=== PATIENT | female | born 1965 | race Caucasian/White ===

== ENCOUNTER 2020-01-19 07:24 | Outpatient (REF) | payer MEDICAID, SELFPAY ==
--- NOTE | 2020-01-19 07:32 | CT_ITS ---
EXAMINATION: CT CHEST WITHOUT CONTRAST CLINICAL INFORMATION: Follow-up pulmonary nodules. COMPARISON: Previous chest CT scan January 2018. TECHNIQUE: Multidetector volumetric CT imaging of the chest was done. Axial MIP volume rendering provided. Sagittal and coronal reformatted images were obtained. This CT examination was performed using dose optimization techniques as appropriate, variously including the following: *Automated exposure control *Adjustment of mA and/or kV according to patient size (this includes techniques or standardized protocols for targeted exams where dose is matched to indication/reason for exam; i.e. extremities or head) *Use of iterative reconstruction technique DLP: 111 mGy-cm. FINDINGS: LUNGS: There is interval increase in size and number of clustered peribronchial nodules in the left upper lobe. Largest nodule measures 3 x 6 mm axial image 224 series 7. Again, this has a peribronchial tree-in-bud appearance suggestive of airways disease. There is interval decrease in size and number in the clustered peribronchial nodules at the right lung base compared to previous exam. Otherwise pulmonary nodules are stable. Largest pulmonary nodules measure 3 x 4 mm in the right upper lobe axial image 117 series 4 and 4 mm in the right middle lobe axial image 260 series 4. MEDIASTINUM: There are small mediastinal lymph nodes. No enlarged mediastinal lymph nodes are seen. The heart does not appear enlarged. There is no coronary artery calcification. There is no pericardial effusion. The thoracic aorta is normal in caliber. PLEURA: There is no pleural effusion. No pleural mass or thickening. AXILLA: No chest wall mass or enlarged axillary lymph nodes are seen. UPPER ABDOMEN: The gallbladder has been removed. There is a 1 cm low-attenuation lesion in the lateral segment of the left lobe of the liver that is stable. Hounsfield units without contrast measure 14 questionable for a complex cyst. OSSEOUS STRUCTURES: Unremarkable. IMPRESSION: Interval increase in size and number of the clustered peribronchial nodules in the left upper lobe and decrease in similar-appearing nodules in the right lower lobe compared to January 2018 exam. Waxing and waning appearance is favors an infectious or inflammatory process. Otherwise, pulmonary nodules are stable.
== END 2020-01-19 07:25 | disposition home or self-care (01) ==
LOC: HO.CT 07:24
PROVIDERS: PCP Internal Medicine; Visit Provider Internal Medicine
DX: R91.8 Other nonspecific abnormal finding of lung field (principal)
CPT/HCPCS: 71250

== ENCOUNTER → 2020-03-27 15:17 | Outpatient (BNVA) | payer MEDICAID, SELFPAY | PROVIDERS: Visit Provider Obstetrics & Gynecology | DX: Z76.89 Persons encountering health services in other specified circumstances (principal) ==

== ENCOUNTER → 2020-05-11 14:19 | Outpatient (BNVA) | payer MEDICAID, SELFPAY | PROVIDERS: PCP Internal Medicine; Referring Provider Internal Medicine; Visit Provider Nurse Practitioner ==

== ENCOUNTER 2020-08-26 08:25 | Outpatient (REF) | payer MEDICAID, SELFPAY ==
[2020-08-26 09:14] LABS: MANUAL DIFF FLAG NO
[2020-08-26 09:34] LABS: Basophils Percent Auto 0.6 % (0-2); Eosinophils Absolute Auto 0.1 X10*3/uL (0.0-0.4); Eosinophils Percent Auto 2.8 % (0-4); Hemoglobin 13.4 g/dl (12.0-16.0); Imm Gran Abs Auto 0.01 X10*3/uL (0.00-0.03); Imm Gran Pct Auto 0.3 % (0.0-0.4); Lymphocytes Absolute Auto 1.2 X10*3/uL (1.2-4.9); Lymphocytes Percent Auto 36.8 % (20-40); Mean Corpuscular HGB Conc 33.5 g/dl (31.0-35.0); Mean Corpuscular Hemoglobin 30.2 pg (27.0-33.0); Mean Corpuscular Volume 90.3 fL (80-98); Mean Platelet Volume 10.5 fL (9.4-12.3); Monocytes Absolute Auto 0.3 X10*3/uL (0.1-1.2); Monocytes Percent Auto 9.4 % (2-11); Neutrophils Absolute Auto 1.6 X10*3/uL (2.0-8.3); Neutrophils Percent Auto 50.1 % (45-73); Platelet Count 236 X10*3/uL (160-400); Red Blood Count 4.43 X10*6/uL (4.20-5.50); Red Cell Distribution Width 11.9 % (11.0-16.0); White Blood Count 3.2 X10*3/uL (4.8-10.8)
[2020-08-26 09:43] LABS: Alanine Aminotransferase 36 U/L (0-31); Albumin Level 4.5 g/dL (3.5-5.0); Alkaline Phosphatase 107 U/L (39-117); Anion Gap 12 (12-20); Aspartate Amino Transferase 22 U/L (5-31); Bilirubin Total 0.4 mg/dL (0.0-1.0); Blood Urea Nitrogen 11 mg/dL (9-16); Carbon Dioxide 27 mmol/L (22-29); Chloride 106 mmol/L (96-108); Estimated Glomerular Filt Rate > 60; Glucose Random 107 mg/dL (60-115); Potassium 4.3 mmol/L (3.3-5.1); Rheumatoid Factor < 15.0 IU/mL (<15.0); Sodium 141 mmol/L (135-145); Total Protein 7.3 g/dL (6.5-8.0)
[2020-08-26 10:05] LABS: Free T4 (Free Thyroxine) 1.18 ng/dL (0.71-1.85); Thyroid Stimulating Hormone 0.03 uIU/mL (0.32-4.0)
[2020-08-26 10:22] LABS: Glucose Urine UA NEG (NEG); Leukocyte Esterase Urine NEG (NEG); Nitrite Urine NEG (NEG); Urine Blood NEG (NEG); Urine Ketones NEG (NEG); Urine Protein NEG (NEG-TRACE)
[2020-08-26 10:24] LABS: Appearance Urine CLEAR; Color Urine YELLOW
[2020-08-26 10:27] LABS: Erythrocyte Sedimentation Rate 13 MM/HR (0-20)
[2020-08-27 20:42] LABS: Anti Nuclear Antibody Screen NEGATIVE (NEGATIVE)
[2020-08-28 13:57] LABS: ANAchoice Screen NEGATIVE (NEGATIVE); Anti-Centromere B Antibodies <1.0 NEG AI (<1.0 NEG); Antibody to SS-A Antigen <1.0 NEG AI (<1.0 NEG); Antibody to SS-B Antigen <1.0 NEG AI (<1.0 NEG); JO 1 Antibody <1.0 NEG AI (<1.0 NEG); SM/Ribonucleoprotein Ab <1.0 NEG AI (<1.0 NEG); Scleroderma 70 Antibody <1.0 NEG AI (<1.0 NEG); Smith Protein <1.0 NEG AI (<1.0 NEG)
[2020-08-30 22:17] LABS: Smooth Muscle Antibody <20 U (<20)
== END 2020-08-26 08:26 | disposition home or self-care (01) ==
LOC: HO.LAB 08:25
PROVIDERS: PCP Internal Medicine; Visit Provider Internal Medicine
DX: E03.9 Hypothyroidism, unspecified (principal)
CPT/HCPCS: 36415; 80053; 81003; 84439; 84443; 85025; 85652; 86038; 86039; 86225; 86235; 86255; 86431

== ENCOUNTER 2020-09-18 16:00 | Outpatient (REF) | payer MEDICAID, SELFPAY ==
--- NOTE | ~2020-09-18 | CT_ITS ---
EXAMINATION: CT CHEST WITHOUT CONTRAST CLINICAL INFORMATION: Follow-up pulmonary nodules COMPARISON: Previous chest CT scans most recent January 2020 TECHNIQUE: Multidetector volumetric CT imaging of the chest was done. Axial MIP volume rendering provided. Sagittal and coronal reformatted images were obtained. This CT examination was performed using dose optimization techniques as appropriate, variously including the following: *Automated exposure control *Adjustment of mA and/or kV according to patient size (this includes techniques or standardized protocols for targeted exams where dose is matched to indication/reason for exam; i.e. extremities or head) *Use of iterative reconstruction technique DLP: 101 mGy-cm FINDINGS: LUNGS: The previously identified bilateral pulmonary nodules are stable. Largest right pulmonary nodule measures 4 mm in the right middle lobe axial image 249 series 4. There are clustered peribronchial left upper lobe nodules, largest measuring 4 x 6 mm axial image [address] appearance suggestive of tree-in-bud appearance or airways disease. This appears similar to previous exam. No new pulmonary nodules are seen. MEDIASTINUM: The mediastinum is normal. PLEURA: There is no pleural effusion. No pleural mass or thickening. AXILLA: No lymphadenopathy. UPPER ABDOMEN: There is a small 1 cm low-attenuation lesion in the lateral segment of the left lobe of the liver probably representing a cyst that is stable. OSSEOUS STRUCTURES: Unremarkable. CT/CT chest wo con IMPRESSION: Stable pulmonary nodules from January 2020 exam.
== END 2020-09-18 16:01 | disposition home or self-care (01) ==
LOC: HO.CT 16:00
PROVIDERS: PCP Internal Medicine; Visit Provider Internal Medicine
DX: R91.1 Solitary pulmonary nodule (principal)
CPT/HCPCS: 71250

== ENCOUNTER → 2020-10-09 15:44 | Outpatient (BNVA) | payer MEDICAID, SELFPAY | PROVIDERS: PCP Internal Medicine; Visit Provider Nurse Practitioner ==

== ENCOUNTER 2021-02-22 15:28 | Outpatient (REF) | payer MEDICAID, SELFPAY ==
--- NOTE | ~2021-02-22 | MM_ITS ---
EXAMINATION: MM SCREENING DIGITAL BREAST TOMOSYNTHESIS, BILATERAL CLINICAL INFORMATION: Screening. Asymptomatic. The lifetime risk of breast cancer based on the Tyrer-Cuzick Model is 5.6%. COMPARISON: Mammography: 10/20/2018 and studies dating back to 05/05/2009. TECHNIQUE: Digital breast tomosynthesis is performed in both the craniocaudal and mediolateral oblique views along with computer-aided detection (CAD). Synthesized 2-D images are generated from the tomosynthesis. FINDINGS: The breasts are heterogeneously dense, which may obscure small masses (ACR BI-RADS breast composition Category c). About the inferior medial aspect of the left breast, there are some linear calcifications present but which are seen to be vascular in nature on tomosynthesis views. No suspicious left breast dominant mass is identified. About the anterior inferior aspect of the right breast, there is a density with some calcifications which may represent a turn in vessel with calcifications, however, circumscribed density with calcifications is not excluded. On craniocaudal view, calcifications were seen on study of 09/23/2016 but wider scattered than on today's study. Recommend spot magnification views of the right breast in craniocaudal and 90-degree mediolateral views. MM/MM tomosynthesis screening BI IMPRESSION: Right breast calcifications for further evaluation, as described. ASSESSMENT: BI-RADS 0: Incomplete - Need Additional Imaging Evaluation. RECOMMENDATION: 1. Additional views of the right breast. 2. Targeted ultrasound if warranted after review of the additional views. 3. Radiology department staff will contact the patient for additional imaging. This patient's information was entered into a reminder system with a target due date for their next mammogram.
== END 2021-02-22 15:29 | disposition home or self-care (01) ==
LOC: HO.MAMMO 15:28
PROVIDERS: Visit Provider Internal Medicine
DX: Z12.31 Encounter for screening mammogram for malignant neoplasm of breast (principal)
CPT/HCPCS: 77063; 77067

== ENCOUNTER 2021-03-01 08:15 | Outpatient (REF) | payer MEDICAID, SELFPAY ==
--- NOTE | ~2021-03-01 | MM_ITS ---
EXAMINATION: MM DIAGNOSTIC DIGITAL MAMMOGRAPHY, RIGHT CLINICAL INFORMATION: Recall from screening for calcifications and question of parenchymal density anterior 6:00 right breast. COMPARISON: Mammography: 02/22/2021, 10/20/2018, 10/13/2017 TECHNIQUE: Digital mammography is performed in the following views: Magnification CC, magnification ML, magnification MLO. FINDINGS: The breasts are heterogeneously dense, which may obscure small masses (ACR BI-RADS breast composition Category c). The additional views demonstrate no developing density or interval mass or architectural abnormality in the area of concern. There are scattered calcifications in the central breast. The calcifications for additional evaluation anterior 6:00 position show some layering on the ML view suggesting milk of calcium. They are likely chronic, without significant change on CC view since 2019. They will be reassessed again to include magnification views in 6 months.. Results are discussed with the patient at time of visit, using an can filler. MM/MM added views RT IMPRESSION: Probable benign calcifications anterior 6:00 position. No developing density or architectural abnormality. ASSESSMENT: BI-RADS 3: Probably Benign RECOMMENDATION: Diagnostic right mammography in 6 months. This patient's information was entered into a reminder system with a target due date for their next mammogram.
== END 2021-03-01 08:16 | disposition home or self-care (01) ==
LOC: HO.MAMMO 08:15
PROVIDERS: Visit Provider Internal Medicine
DX: R92.2 Inconclusive mammogram (principal)
CPT/HCPCS: 77065

== ENCOUNTER 2021-04-03 14:26 | Outpatient (REF) | payer MEDICAID, SELFPAY ==
[2021-04-06 02:22] LABS: HPV mRNA E6/E7 rflx Not Detected (Not Detected)
== END 2021-04-03 14:27 | disposition home or self-care (01) ==
LOC: HO.LAB 14:26
PROVIDERS: PCP Internal Medicine; Visit Provider Obstetrics & Gynecology
DX: Z01.419 Encounter for gynecological examination (general) (routine) without abnormal findings (principal); Z11.51 Encounter for screening for human papillomavirus (HPV)
CPT/HCPCS: 87624; 88142

== ENCOUNTER 2021-06-26 12:10 | Outpatient (REF) | payer MEDICAID, SELFPAY ==
--- NOTE | ~2021-06-26 | XR_ITS ---
EXAMINATION: XR SHOULDER, RIGHT CLINICAL INFORMATION: Pain COMPARISON: None TECHNIQUE: AP external rotation, Grashey, scapular Y, and axillary views of the right shoulder. FINDINGS: Bone alignment is normal. No fracture or dislocation is seen. The glenohumeral joint is normal. There is mild arthritis at the acromioclavicular joint. Soft tissues are unremarkable. XR/XR shoulder RT min 2V IMPRESSION: Mild arthritis at the acromioclavicular joint.
--- NOTE | ~2021-06-26 | XR_ITS ---
EXAMINATION: XR HAND, BILATERAL XR WRIST, BILATERAL CLINICAL INFORMATION: Pain. COMPARISON: Previous exam February 2018. TECHNIQUE: 4 views of each hand and wrist. FINDINGS: RIGHT: Bone alignment is normal. No fracture or dislocation is seen. There is mild arthritis at the 1st RESIDENTIAL joint with joint space narrowing and osteophyte formation. There is mild arthritis at the DIP joint of the 3rd and 5th fingers with small osteophytes. Joint spaces are otherwise normal. Soft tissues are normal. LEFT: Bone alignment is normal. No fracture or dislocation is seen. There is arthritis at the DIP joint of the 3rd finger with joint space narrowing, osteophyte formation and cyst formation. This is new from February 2018 exam. There is mild arthritis at the DIP joints of the 2nd and 5th fingers with osteophytes. There is mild arthritis at the 1st RESIDENTIAL joint with small osteophyte. Joint spaces are otherwise normal. Soft tissues are normal. XR/XR hand wrist LT IMPRESSION: Right: Osteoarthritis at the 1st RESIDENTIAL joint and mild arthritis at the DIP joints of the 3rd and 5th fingers. Left: Arthritis at the DIP joint of the 3rd finger with joint space narrowing, osteophyte formation and prominent cystic change questionable for evidence of erosive osteoarthritis. Arthritis at the DIP joints of the 2nd and 5th fingers with osteophyte formation and mild arthritis at the 1st RESIDENTIAL joint.
--- NOTE | ~2021-06-26 | XR_ITS ---
EXAMINATION: XR HAND, BILATERAL XR WRIST, BILATERAL CLINICAL INFORMATION: Pain. COMPARISON: Previous exam February 2018. TECHNIQUE: 4 views of each hand and wrist. FINDINGS: RIGHT: Bone alignment is normal. No fracture or dislocation is seen. There is mild arthritis at the 1st ALF joint with joint space narrowing and osteophyte formation. There is mild arthritis at the DIP joint of the 3rd and 5th fingers with small osteophytes. Joint spaces are otherwise normal. Soft tissues are normal. LEFT: Bone alignment is normal. No fracture or dislocation is seen. There is arthritis at the DIP joint of the 3rd finger with joint space narrowing, osteophyte formation and cyst formation. This is new from February 2018 exam. There is mild arthritis at the DIP joints of the 2nd and 5th fingers with osteophytes. There is mild arthritis at the 1st ALF joint with small osteophyte. Joint spaces are otherwise normal. Soft tissues are normal. XR/XR hand wrist RT IMPRESSION: Right: Osteoarthritis at the 1st ALF joint and mild arthritis at the DIP joints of the 3rd and 5th fingers. Left: Arthritis at the DIP joint of the 3rd finger with joint space narrowing, osteophyte formation and prominent cystic change questionable for evidence of erosive osteoarthritis. Arthritis at the DIP joints of the 2nd and 5th fingers with osteophyte formation and mild arthritis at the 1st ALF joint.
== END 2021-06-26 12:11 | disposition home or self-care (01) ==
LOC: HO.XRAY 12:10
PROVIDERS: PCP Internal Medicine; Visit Provider Nurse Practitioner Family
DX: M25.511 Pain in right shoulder (principal); M79.7 Fibromyalgia; M79.641 Pain in right hand; M79.642 Pain in left hand
CPT/HCPCS: 73030; 73110; 73130; 99212

== ENCOUNTER → 2021-07-02 12:24 | Outpatient (BNVA) | payer MEDICAID, SELFPAY | PROVIDERS: PCP Internal Medicine; Visit Provider Physician Assistant | DX: S46.009A Unspecified injury of muscle(s) and tendon(s) of the rotator cuff of unspecified shoulder, initial encounter (principal); X58.XXXA Exposure to other specified factors, initial encounter; Y93.9 Activity, unspecified; Y92.9 Unspecified place or not applicable; Y99.8 Other external cause status; M19.049 Primary osteoarthritis, unspecified hand; M79.7 Fibromyalgia; R20.0 Anesthesia of skin; R20.2 Paresthesia of skin | CPT/HCPCS: 20610; 99202; J1040 ==

== ENCOUNTER 2021-07-17 15:33 | Outpatient (REF) | payer MEDICAID, SELFPAY ==
--- NOTE | ~2021-07-17 | MR_ITS ---
EXAMINATION: MR SHOULDER WITHOUT CONTRAST, RIGHT CLINICAL INFORMATION: Left shoulder pain COMPARISON: None TECHNIQUE: MRI of the shoulder without contrast was performed on a high-field scanner. FINDINGS: ROTATOR CUFF: Increased signal from mild supraspinatus tendinosis plus/minus small intrasubstance tears. No full-thickness tear is seen. Infraspinatus, teres minor, subscapularis is intact. No muscle atrophy or fatty infiltration. BICEPS: Intact CORACOACROMIAL ARCH: The undersurface of the acromion is flat with no subacromial spur. Mild to moderate acromioclavicular arthritis. LABRUM/CAPSULE: No focal labral tear is seen. Inferior capsule is intact. GLENOHUMERAL JOINT/MARROW: No suspicious marrow signal changes. No fracture. No significant effusion. MR/MR shoulder RT wo con IMPRESSION: 1. Mild supraspinatus tendinosis plus/minus small intrasubstance tears. No full-thickness tear or retraction is seen. 2. Mild to moderate acromioclavicular arthritis.
== END 2021-07-17 15:34 | disposition home or self-care (01) ==
LOC: HO.MRI 15:33
PROVIDERS: Visit Provider Physician Assistant
DX: S43.001A Unspecified subluxation of right shoulder joint, initial encounter (principal)
CPT/HCPCS: 73221

== ENCOUNTER 2021-08-31 14:32 | Outpatient (REF) | payer MEDICAID, SELFPAY ==
--- NOTE | ~2021-08-31 | MM_ITS ---
EXAMINATION: MM DIAGNOSTIC DIGITAL BREAST TOMOSYNTHESIS, RIGHT CLINICAL INFORMATION: Short interval six-month follow-up probable benign calcifications anterior 6:00 right breast likely milk of calcium. TC score 7%. COMPARISON: Mammography: 03/01/2021, 02/22/2021 (BI-RADS 0), 10/20/2018 TECHNIQUE: Digital breast tomosynthesis is performed in both the craniocaudal and mediolateral oblique views along with computer-aided detection (CAD). Synthesized 2D images are generated from the tomosynthesis. Additional magnification CC and magnification ML views are obtained. FINDINGS: The breasts are heterogeneously dense, which may obscure small masses (ACR BI-RADS breast composition Category c). Parenchymal pattern is similar to prior studies and there is no interval mass or architectural abnormality. There are some scattered punctate round calcifications in the breast. The axilla and skin contours are unremarkable. Calcifications for follow-up anterior 6:00 position are stable from prior diagnostic exam. Most are layering, consistent with milk of calcium. There are no increasing calcifications or interval suspicious change. They will be reassessed again at time of annual bilateral mammography, due in 6 months. Results are provided to the patient at time of visit by the technologist. MM/MM tomosynthesis diagnostic RT IMPRESSION: -No suspicious change in probable benign calcifications for follow-up anterior 6:00 position. ASSESSMENT: BI-RADS 3: Probably Benign RECOMMENDATION: Diagnostic mammography at time of annual bilateral exam, due in 6 months. This patient's information was entered into a reminder system with a target due date for their next mammogram.
== END 2021-08-31 14:33 | disposition home or self-care (01) ==
LOC: HO.MAMMO 14:32
PROVIDERS: PCP Internal Medicine; Visit Provider Internal Medicine
DX: R92.1 Mammographic calcification found on diagnostic imaging of breast (principal)
CPT/HCPCS: 77061; 77065

== ENCOUNTER 2021-09-13 07:49 | Outpatient (REF) | payer MEDICAID, SELFPAY ==
--- NOTE | ~2021-09-13 | US_ITS ---
EXAMINATION: US ABDOMEN COMPLETE CLINICAL INFORMATION: Right upper quadrant pain. COMPARISON: Multiple prior CT scans of the chest most recently 09/18/2020. TECHNIQUE: Real-time imaging of the abdominal viscera. FINDINGS: PANCREAS: The pancreas appears unremarkable, without masses or ductal dilatation, with the exception of the tail which is obscured by bowel gas. ABDOMINAL AORTA: The proximal, mid, and distal segments are normal in caliber. INFERIOR VENA CAVA: Visualized portions are normal. LIVER: The liver is enlarged measuring 18 cm in greatest length. The liver contour is normal. There is diffuse increased liver parenchymal echogenicity, consistent with hepatic steatosis. Similar findings could be seen on the prior 09/18/2020 CT scan. No focal hepatic lesion. There is no intrahepatic biliary duct dilatation seen. GALLBLADDER: Surgically absent. COMMON BILE DUCT: Normal in caliber measuring 0.7 cm in diameter. RIGHT KIDNEY: Normal. No hydronephrosis. No renal calculi or focal parenchymal lesions. The kidney measures 9.4 cm in maximum dimension. LEFT KIDNEY: Normal. No hydronephrosis. No renal calculi or focal parenchymal lesions. The kidney measures 8.8 cm in maximum dimension. SPLEEN: Normal. The spleen measures 8.8 cm in maximum dimension. FREE FLUID: None. US/US abdomen complete IMPRESSION: Enlarged fatty liver as present previously.
== END 2021-09-13 07:50 | disposition home or self-care (01) ==
LOC: HO.US 07:49
PROVIDERS: Visit Provider Internal Medicine
DX: R10.11 Right upper quadrant pain (principal)
CPT/HCPCS: 76700

== ENCOUNTER → 2021-09-21 12:46 | Outpatient (BNVA) | payer MEDICAID, SELFPAY | PROVIDERS: PCP Internal Medicine; Visit Provider Nurse Practitioner | DX: K58.0 Irritable bowel syndrome with diarrhea (principal); K21.9 Gastro-esophageal reflux disease without esophagitis | CPT/HCPCS: 99212 ==

== ENCOUNTER 2021-09-26 10:17 | Outpatient (REF) | payer MEDICAID, SELFPAY ==
--- NOTE | ~2021-09-26 | CT_ITS ---
EXAMINATION: CT CHEST WITHOUT CONTRAST CLINICAL INFORMATION: Pulmonary nodule COMPARISON: Previous chest CT scans most recent September 2020 TECHNIQUE: Multidetector volumetric CT imaging of the chest was done. Axial MIP volume rendering provided. Sagittal and coronal reformatted images were obtained. This CT examination was performed using dose optimization techniques as appropriate, variously including the following: *Automated exposure control *Adjustment of mA and/or kV according to patient size (this includes techniques or standardized protocols for targeted exams where dose is matched to indication/reason for exam; i.e. extremities or head) *Use of iterative reconstruction technique DLP: 117 mGy-cm FINDINGS: LUNGS: There are new clustered noncalcified nodules in the superior segment of the right lower lobe. Largest measures 5 mm axial image 191 series 7. There is focal bronchiectasis, bronchial wall thickening and bronchial soft tissue opacification in the right upper lobe for example axial image 2:15 series 7 and in the left upper lobe axial image 227 series 7. This appears stable. Other pulmonary nodules are stable. Largest pulmonary nodule measures 4 mm in the right middle lobe axial image 267 series 7. There is heterogeneous attenuation of the lungs suggestive of areas of air-trapping and hypoventilatory changes MEDIASTINUM: The mediastinum is normal. PLEURA: There is no pleural effusion. No pleural mass or thickening. AXILLA: No lymphadenopathy. UPPER ABDOMEN: There is a 1 cm low-attenuation lesion in the lateral segment of the left lobe of the liver that is stable. OSSEOUS STRUCTURES: Unremarkable. CT/CT chest wo con IMPRESSION: New clustered peribronchial nodules in the superior segment of the right lower lobe suggestive of airways disease. Other clustered peribronchial nodules and bronchial soft tissue opacification or mucus plugging predominantly in the bilateral upper lobes appears unchanged. There are several discrete calcified and noncalcified pulmonary nodules that appear stable, largest measuring 4 mm in the right middle lobe. Fleischner guidelines were followed.
== END 2021-09-26 10:18 | disposition home or self-care (01) ==
LOC: HO.CT 10:17
PROVIDERS: Visit Provider Internal Medicine
DX: R91.1 Solitary pulmonary nodule (principal)
CPT/HCPCS: 71250

== ENCOUNTER 2021-10-18 07:41 | Outpatient (REF) | payer MEDICAID, SELFPAY ==
--- NOTE | 2021-10-18 07:45 | EMG_ITS ---
Bilateral median and ulnar motor and sensory studies were performed. Bilateral radial sensory studies were performed and paraspinal muscles were tested with a needle. IMPRESSION: Mild right ulnar neuropathy across cubital tunnel. Otherwise, this study did not reveal any significant abnormality. MD BETTE Henderson/SHELLIE / [id number]
== END 2021-10-18 07:42 | disposition home or self-care (01) ==
LOC: HO.NEURO 07:41
PROVIDERS: PCP Internal Medicine; Visit Provider Physician Assistant
DX: R20.0 Anesthesia of skin (principal); R20.2 Paresthesia of skin
CPT/HCPCS: 95886; 95911

== ENCOUNTER → 2021-11-02 13:23 | Outpatient (BNVA) | payer MEDICAID, SELFPAY | PROVIDERS: PCP Internal Medicine; Visit Provider Nurse Practitioner | DX: K21.9 Gastro-esophageal reflux disease without esophagitis (principal); K58.0 Irritable bowel syndrome with diarrhea; Z79.899 Other long term (current) drug therapy | CPT/HCPCS: 99212 ==

== ENCOUNTER → 2021-12-05 12:02 | Outpatient (BNVA) | payer MEDICAID, SELFPAY | PROVIDERS: PCP Internal Medicine; Visit Provider Orthopaedic Surgery | DX: G56.21 Lesion of ulnar nerve, right upper limb (principal) | CPT/HCPCS: 99202 ==

== ENCOUNTER → 2021-12-13 12:36 | Outpatient (BNVA) | payer MEDICAID, SELFPAY | PROVIDERS: PCP Internal Medicine; Visit Provider Internal Medicine Pulmonary Disease | DX: Z01.811 Encounter for preprocedural respiratory examination (principal); J47.9 Bronchiectasis, uncomplicated; R91.8 Other nonspecific abnormal finding of lung field | CPT/HCPCS: 99202 ==

== ENCOUNTER → 2021-12-19 14:29 | Outpatient (BNVA) | payer MEDICAID, SELFPAY | PROVIDERS: PCP Internal Medicine; Visit Provider Nurse Practitioner | DX: K58.0 Irritable bowel syndrome with diarrhea (principal); K21.9 Gastro-esophageal reflux disease without esophagitis | CPT/HCPCS: 99212 ==

== ENCOUNTER 2021-12-27 07:15 | Day surgery (SDC) | payer MEDICAID, SELFPAY ==
[2021-12-21 15:52] VITALS: BMI 27.6
--- NOTE | 2021-12-26 09:19 | HO.ANESPROP2 ---
Documented by User: Chen Angulo NP 12/26/21 09:21 HPI - Anesthesia Eval Consult details Narrative: 56yo F for Right Cubital Tunnel Release vs. Transposition Pulmo cleared: Incidental finding of mild bronchiectasis with no acute exacerbation.? PMFSH Active Problems Active Problems: All Active Problems (Updated 12/13/21 @ 14:20 by Giacomo Hopson MD) Preop pulmonary/respiratory exam (Acute) Pulmonary nodules (Acute) Bronchiectasis (Acute) Cubital tunnel syndrome on right (Acute) CMC arthritis (Acute) Rotator cuff injury (Acute) Fibromyalgia (Acute) Well woman exam (Acute) Irritable bowel syndrome with diarrhea (Acute) GERD (gastroesophageal reflux disease) (Acute) Past Medical History Medical History Anxiety Depression Fibromyalgia GERD (gastroesophageal reflux disease) HPV in female Surgical History Surgical History H/O LEEP History of bilateral tubal ligation History of cholecystectomy History of colonoscopy Social History Social History Household Members: None Alcohol intake: current Alcohol intake frequency: holidays/special occasions only Patient Tobacco Use Status: Never used Tobacco Advance Directives Date on File: 01/19/20 Sexual orientation: Straight/Heterosexual Gender identity: Female Meds Allergies Allergy/AdvReac Type Severity Reaction Status Date / Time cholestyramine Allergy Intermediate itching Verified 12/19/21 14:49 Home Medications Medication Instructions Recorded Confirmed Last Taken Type amitriptyline 75 mg tablet 75 mg PO BEDTIME 06/26/21 Unknown History clonazepam 0.5 mg tablet 0.5 mg PO BEDTIME 06/26/21 Unknown History fluticasone propionate 50 1 spray intranasal DAILY 06/26/21 Unknown History mcg/actuation nasal spray,suspension (Allergy Relief (fluticasone)) loratadine 10 mg tablet (Allergy 10 mg PO DAILY 06/26/21 Unknown History Relief (loratadine)) meclizine 25 mg tablet 25 mg PO DAILY PRN 06/26/21 Unknown History naproxen 500 mg tablet 500 mg PO BID PRN 06/26/21 Unknown History propranolol 20 mg tablet 20 mg PO BID 06/26/21 12/27/21 History levothyroxine 75 mcg tablet 75 mcg PO DAILY 09/21/21 12/27/21 History oxybutynin chloride 5 mg 15 mg PO DAILY 09/21/21 Unknown History tablet,extended release 24 hr sumatriptan succinate 50 mg tablet 50 mg PO 09/21/21 Unknown History pregabalin 50 mg capsule 50 mg PO BID 12/19/21 Unknown History Exam Exam Date and Time: December 26, [id number] Height,Weight and Vital Signs: Height 5 ft 1 in Weight 66.224 kg Narrative Narrative: CT chest wo con 09/2021 IMPRESSION: New clustered peribronchial nodules in the superior segment of the right lower lobe suggestive of airways disease. Other clustered peribronchial nodules and bronchial soft tissue opacification or mucus plugging predominantly in the bilateral upper lobes appears unchanged. There are several discrete calcified and noncalcified pulmonary nodules that appear stable, largest measuring 4 mm in the right middle lobe.? Assessment and Plan Assessment Anesthesia Assessment: Chart Reviewed Documented by User: Judd Coronado MD 12/27/21 16:50 PMFSH Past Medical History Medical History Anxiety Depression Fibromyalgia GERD (gastroesophageal reflux disease) HPV in female Functional capacity: independent ambulation Family History Family history of problems with anesthesia: No Surgical History Surgical History H/O LEEP History of bilateral tubal ligation History of cholecystectomy History of colonoscopy History of Problems with Anesthesia: No Social History Social History Household Members: None Alcohol intake: current Alcohol intake frequency: holidays/special occasions only Patient Tobacco Use Status: Never used Tobacco Advance Directives Date on File: 01/19/20 Sexual orientation: Straight/Heterosexual Gender identity: Female Meds Allergies Allergy/AdvReac Type Severity Reaction Status Date / Time cholestyramine Allergy Intermediate itching Verified 12/19/21 14:49 Home Medications Medication Instructions Recorded Confirmed Last Taken Type amitriptyline 75 mg tablet 75 mg PO BEDTIME 06/26/21 Unknown History clonazepam 0.5 mg tablet 0.5 mg PO BEDTIME 06/26/21 Unknown History fluticasone propionate 50 1 spray intranasal DAILY 06/26/21 Unknown History mcg/actuation nasal spray,suspension (Allergy Relief (fluticasone)) loratadine 10 mg tablet (Allergy 10 mg PO DAILY 06/26/21 Unknown History Relief (loratadine)) meclizine 25 mg tablet 25 mg PO DAILY PRN 06/26/21 Unknown History naproxen 500 mg tablet 500 mg PO BID PRN 06/26/21 Unknown History propranolol 20 mg tablet 20 mg PO BID 06/26/21 12/27/21 History levothyroxine 75 mcg tablet 75 mcg PO DAILY 09/21/21 12/27/21 History oxybutynin chloride 5 mg 15 mg PO DAILY 09/21/21 Unknown History tablet,extended release 24 hr sumatriptan succinate 50 mg tablet 50 mg PO 09/21/21 Unknown History pregabalin 50 mg capsule 50 mg PO BID 12/19/21 Unknown History Exam Airway Mallampati Class: III TM Dist: >3cm Neck ROM: Full Loose/Missing/Broken Teeth: Yes Heart: S1,S2 Lungs: b/l breath sounds Assessment and Plan Assessment Anesthesia Assessment: Anesthesia Plan Discussed Final Anesthetic Review Family History of Problems with Anesthesia: No History of Problems with Anesthesia: No NPO: Yes ASA Class: II Final Preanesthetic Review: Meds/Allgs Chart Reviewed, Consent Obtained/Reviewed and Anes Risks/Benef Reviewed Patient Risk: Intermediate Procedure Risk: Intermediate Anesthetic Plan Anesthetic Plan: GA Disposition: Standard PACU
[2021-12-27] VITALS (8 sets, daily range): BP systolic 113–148; BP diastolic 59–74; PULSE 59–87; RESP 14–16; TEMP 36.2–36.3; O2SAT 97–100; BMI 27.6
[2021-12-27] MEDS: Lactated Ringers 1,000 ML 100 ML IVCONT (08:26)
--- NOTE | 2021-12-27 10:24 | MHC.SHP ---
Pre-Procedural Eval Section A Date of Service: 12/27/21 The patient is an INPATIENT: No Changes since office visit: No Cold of Flu in the past 2 weeks, No New Medical Problems, No Changes in Medication and No Patient answered all questions The History & Physical has been completed within 30 days and I have reviewed it.: Yes Section B Chief Complaint: ulnar nerve lesion Allergies: Allergies Allergy/AdvReac Type Severity Reaction Status Date / Time cholestyramine Allergy Intermediate itching Verified 12/19/21 14:49 Plan I have reviewed the history and physical and performed a pertinent physical examination on my patient. No changes have occurred unless specified.
--- NOTE | 2021-12-27 10:25 | W.PM.OPN ---
Operative Note Operative Note Date of Service: 12/27/21 Narrative: Operative Note Narrative: Preop diagnosis: 1. Right Cubital tunnel syndrome Postop diagnosis: Same Procedure: 1. Right Cubital Tunnel Release Surgeon: Magdalena Robertson MD Anesthesia: General Anesthesia Findings: Thickening and fibrosis about the ulnar nerve at the cubital tunnel Implants: none Tourniquet time: 12 minutes EBL: 5.0 ml Specimen: none Drains: None Complications: None Disposition: Brought to the recovery room in stable condition Plan: Follow-up in 10-14 days for wound check, and suture removal Indications: The patient is 56 years old with right cubital tunnel syndrome . The risks and benefits of operative treatment, including but not limited to risk of damage to blood vessels, nerves, tendons, infection, recurrence, persistent pain or numbness, incomplete resolution of preoperative symptoms, or need for further surgery were discussed with the patient and they wished to proceed with surgery. Procedure: Once consent was obtained patient was brought back to the operating suite and placed in the operating table in a supine position. Perioperative antibiotics and anesthesia was administered by the anesthesia team. The limb was prepped and draped in a standard surgical fashion, and a sterile tourniquet applied to the proximal aspect of the right upper extremity. The limb was elevated exsanguinated with Esmarch bandage and the tourniquet inflated to 250 mm of mercury for a total tourniquet time of 12 minutes. A 6 cm gently curved but longitudinally oriented incision was made centered over the cubital tunnel of the right upper extremity. Incision was made through the skin to the subcutaneous tissues using a # 15 Blade. I then dissected down to the level of the medial epicondyle and the cubital tunnel using tenotomy scissors. Care was taken to protect the lateral antebrachial cutaneous nerve. The ulnar nerve was identified just posterior to the medial intermuscular septum. The ulnar nerve was released in a proximal to distal direction using tenotomy in iris scissors while directly visualizing and protecting the ulnar nerve. Thickening and fibrosis was appreciated about the ulnar nerve as it passed through the cubital tunnel. The ulnar nerve was assessed as I passed the elbow through full flexion and extension and was found to remain stable within its groove. At this point the tourniquet was deflated and hemostasis obtained with a brief period of local pressure and bipolar electrocautery. The wound was copiously irrigated with normal saline. The subcutaneous layer was closed with 4-0 Vicryl suture, and the skin edges were reapproximated with 5-0 nylon suture. The wound was infiltrated with some 0.25% plain Marcaine for postop pain control and sterile dressings and a posterior splint was applied. The patient appears to have tolerated the procedure well and with no complications. All digits were well vascularized conclusion of the case.
== END 2021-12-27 13:27 | disposition home or self-care (01) ==
PROVIDERS: PCP Internal Medicine; Visit Provider Orthopaedic Surgery
PROC: (CPT 64718; principal; 2021-12-27 09:10)
DX: G56.21 Lesion of ulnar nerve, right upper limb (principal); R20.0 Anesthesia of skin; R20.2 Paresthesia of skin; F41.8 Other specified anxiety disorders; M79.7 Fibromyalgia; Z79.899 Other long term (current) drug therapy
CPT/HCPCS: 64718; J0690; J1100; J2250; J2370; J2405; J2795; J3010

== ENCOUNTER 2022-01-15 12:26 | Outpatient (REF) | payer MEDICAID, SELFPAY ==
--- NOTE | 2022-01-15 16:35 | PFT_ITS ---
Forced vital capacity 71%, FEV1 78%, FEV1/FVC ratio is 86. FEF25/75 101% and MVV 68%. Post bronchodilator therapy, there is no change. Total lung capacity 75%. Residual volume 74%. Diffusion capacity 80%. CONCLUSION: [id number] degree of restrictive pulmonary disorder. No obstructive airway disorder. No response to bronchodilator therapy. MD DEONNA Go/MODL / [id number]
== END 2022-01-15 12:27 | disposition home or self-care (01) ==
LOC: HO.RESP 12:26
PROVIDERS: PCP Internal Medicine; Visit Provider Internal Medicine Pulmonary Disease
DX: J47.9 Bronchiectasis, uncomplicated (principal)
CPT/HCPCS: 94060; 94727; 94729

== ENCOUNTER → 2022-01-16 13:03 | Outpatient (BNVA) | payer MEDICAID, SELFPAY | PROVIDERS: PCP Internal Medicine; Visit Provider Nurse Practitioner | DX: K58.0 Irritable bowel syndrome with diarrhea (principal); K21.9 Gastro-esophageal reflux disease without esophagitis | CPT/HCPCS: 99212 ==

== ENCOUNTER 2022-02-07 09:27 | Emergency (ER) | payer MEDICAID, SELFPAY ==
--- NOTE | ~2022-02-07 | CT_ITS ---
EXAMINATION: CT ANGIOGRAM OF THE CHEST WITH AND WITHOUT CONTRAST (CT PULMONARY ANGIOGRAM FOR PE) CLINICAL INFORMATION: Reason for Exam elevated d dimer, pleuritic CP COMPARISON: September 26, 2021 and September 18, 2020 TECHNIQUE: Prior to contrast administration, noncontrast localization images were obtained. Subsequently, multidetector volumetric imaging was performed from the thoracic inlet to below the diaphragms following the administration of 65 mL Omnipaque 350 intravenous contrast. No contrast reaction reported Sagittal, coronal, and MIP oblique sagittal reformatted images were obtained on the CT workstation, uploaded to PACS, and reviewed. This CT examination was performed using dose optimization techniques as appropriate, variously including the following: *Automated exposure control *Adjustment of mA and/or kV according to patient size (this includes techniques or standardized protocols for targeted exams where dose is matched to indication/reason for exam; i.e. extremities or head) *Use of iterative reconstruction technique Total exam dose-length product 257 mGy-cm FINDINGS: QUALITY OF STUDY/CONTRAST BOLUS: Satisfactory. PULMONARY ARTERIES: No central or segmental pulmonary emboli. THORACIC AORTA: No aneurysm or dissection. LUNG: Central airways are patent. No confluent parenchymal disease identified. There are some sub-4 mm densities present bilaterally. Calcified granulomas are present. No significant bronchial wall thickening or bronchiectasis is seen. Scattered regions of groundglass opacity present in a somewhat mosaic pattern which can be seen with small small airways disease with some obstruction/air trapping, infection, interstitial edema, or vascular disease of other etiology. There is bronchial wall thickening present. No definite bronchiectasis is appreciated. There is a 5 mm noncalcified subpleural nodule seen within the right upper lobe on image 181 of 391. This is stable There are a few adjacent approximately 3 mm noncalcified densities within the right upper lobe on image 145 of 391. Within the left upper lobe adjacent to the major fissure there is a 4 mm noncalcified nodule on image 141 of 391. This is stable. Within the left upper lobe there is a region of density measuring approximately 1.4 x 0.7 cm in size on image [address] series #6. This is larger than on study of September 26, 2021 where it measured approximately 1.0 x 0.4 cm in size but is similar to study of September 18, 2020 and January 19, 2020. This could be related to mucous plugging or other probably benign process. PLEURA: No pleural effusion or pneumothorax. MEDIASTINUM: Heart mildly enlarged. No pericardial effusion. No hilar or mediastinal lymphadenopathy. No evidence of septal bowing or right heart strain. No coronary artery calcification appreciated. CHEST WALL/AXILLA: No axillary or internal mammary lymphadenopathy. OSSEOUS STRUCTURES: No acute or suspicious osseous abnormality. UPPER ABDOMEN: Unremarkable. No reflux of contrast into the hepatic veins to suggest elevated right heart pressures. CT/CT angio chest PE protocol IMPRESSION: 1. No evidence of acute pulmonary artery embolus. 2. No evidence of thoracic aortic aneurysm or dissection. 3. Old granulomatous disease. 4. Stable lung nodules as described 5. Groundglass mosaic appearance of interstitial lung disease which can be seen with small airways disease and air trapping, vascular disease, possible interstitial pulmonary edema, or possible infectious etiology. VTE: negative
--- NOTE | ~2022-02-07 | XR_ITS ---
EXAMINATION: XR CHEST CLINICAL INFORMATION: Chest pain. COMPARISON: 06/27/2017 chest and rib radiographs. TECHNIQUE: 2 views of the chest were obtained. FINDINGS: No significant abnormality is noted involving the heart, lungs, mediastinum, bony thorax or soft tissues. XR/XR chest 2V IMPRESSION: No acute cardiopulmonary process.
[2022-02-07 09:49] VITALS: BP 171/73; PULSE 71; RESP 16; TEMP 36.6; O2SAT 99; BMI 27.6
[2022-02-07 10:07] VITALS: BP 182/78; PULSE 72; RESP 14; TEMP 37.1; O2SAT 96
--- NOTE | 2022-02-07 10:13 | ECG_ITS ---
Test Reason : Chest Pain Blood Pressure : / mmHG Vent. Rate : 062 BPM Atrial Rate : 062 BPM P-R Int : 152 ms QRS Dur : 084 ms QT Int : 410 ms P-R-T Axes : 057 036 075 degrees QTc Int : 416 ms Normal sinus rhythm Normal ECG T wave inversion no longer evident in Anterior leads Referred By: Araceli Lomax Electronically Signed By:GOVIND STORY MD
--- NOTE | 2022-02-07 10:27 | ED.CHESTPAIN ---
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 Patient describes the pain as central pain which was initially sharp and stabbing but now feels heavy with some associated shortness of breath. Pain began at rest. It is not worsened with exertion. There is no associated vomiting or diaphoresis with the pain. Patient initially complained of some radiation of pain to the right arm but tells me that she has chronic right shoulder pain which feels unchanged from her baseline. Patient did have carpal tunnel surgery on her right upper extremity 1 month ago. No recent travel or sick contacts. No personal/family history of DVT or PE. No leg swelling or leg pain. Chest pain now described as heavy. Pain is not worsened with palpation. Pain is worsened with deep breathing Related Data Home Medications Medication Instructions Recorded Confirmed amitriptyline 75 mg tablet 75 mg PO BEDTIME 06/26/21 clonazepam 0.5 mg tablet 0.5 mg PO BEDTIME 06/26/21 fluticasone propionate 50 1 spray intranasal DAILY 06/26/21 mcg/actuation nasal spray,suspension (Allergy Relief (fluticasone)) loratadine 10 mg tablet (Allergy 10 mg PO DAILY 06/26/21 Relief (loratadine)) meclizine 25 mg tablet 25 mg PO DAILY PRN 06/26/21 naproxen 500 mg tablet 500 mg PO BID PRN 06/26/21 propranolol 20 mg tablet 20 mg PO BID 06/26/21 levothyroxine 75 mcg tablet 75 mcg PO DAILY 09/21/21 sumatriptan succinate 50 mg tablet 50 mg PO 09/21/21 pregabalin 50 mg capsule 50 mg PO BID 12/19/21 oxybutynin chloride 10 mg 10 mg PO DAILY 01/16/22 tablet,extended release 24 hr sucralfate 1 gram tablet 2 g PO QPM 01/16/22 Previous Rx's Medication Instructions Recorded calcium carbonate 600 mg-vitamin 1 cap PO DAILY #30 caps 03/27/20 D3 12.5 mcg (500 unit) capsule (Calcium 600 with Vitamin D3) dexlansoprazole 60 mg 60 mg PO DAILY 30 days #30 caps 09/21/21 capsule,biphase delayed release (Dexilant) dicyclomine 20 mg tablet 20 mg PO QID 30 days #120 tabs 09/21/21 simethicone 180 mg capsule (Gas 180 mg PO QID #120 caps 09/21/21 Relief (simethicone)) alosetron 0.5 mg tablet (Lotronex) 0.5 mg PO DAILY #60 tabs 12/19/21 hydrocodone 5 mg-acetaminophen 325 1 - 2 tab PO Q6H PRN pain #20 tabs 12/27/21 mg tablet eluxadoline 75 mg tablet (Viberzi) 75 mg PO BID #60 tabs 01/16/22 loperamide 2 mg capsule 2 mg PO Q6H PRN for diarrhea #30 02/01/22 caps Allergies Allergy/AdvReac Type Severity Reaction Status Date / Time cholestyramine Allergy Intermediate itching Verified 01/16/22 13:54 Review of Systems Review of Systems: Yes all other systems are reviewed and are negative Constitutional: Constitutional: Reports no additional constitutional complaints, Denies body ache(s), Denies chills, Denies fever(s), Denies headache(s) and Denies weakness Eyes: Eyes: Reports no additional eye complaints and Denies change in vision ENT: Reports system reviewed and no additional complaints, except as documented, Denies dizziness, Denies headache(s), Denies nasal congestion, Denies nasal discharge and Denies neck pain Cardiovascular: Cardiovascular: Reports no additional cardiovascular complaints, Reports chest pain, Denies leg edema and Reports dyspnea Respiratory: Respiratory: Reports no additional respiratory complaints, Denies cough and Reports dyspnea Gastrointestinal: Gastrointestinal: Reports no additional gastrointestinal complaints, Denies abdominal pain, Denies diarrhea, Denies nausea and Denies vomiting Genitourinary: Genitourinary: Reports no additional female genitourinary complaints and Denies urinary incontinence Musculoskeletal: Musculoskeletal: Reports no additional musculoskeletal complaints, Denies back pain, Denies arthralgias, Denies joint swelling, Denies neck pain, Denies numbness and Denies tingling Integumentary/Breasts: Skin/Breast: Reports system reviewed and no additional complaints, except as docu and Denies rash Neurologic: Reports system reviewed and no additional complaints, except as documented, Denies Abnormal speech present, Denies dizziness, Denies headache(s), Denies numbness, Denies tingling and Denies weakness PMFSH Past Medical History Attestation statement: The following information was validated with the patient. Source: old records reviewed and nursing notes reviewed Medical History Anxiety Depression Fibromyalgia GERD (gastroesophageal reflux disease) HPV in female Surgical History H/O LEEP History of bilateral tubal ligation History of cholecystectomy History of colonoscopy Social History Social History Household Members: None Alcohol intake: current Alcohol intake frequency: does not drink Patient Tobacco Use Status: Never used Tobacco Use of substances other than those prescribed or required for medical reasons: No Advance Directives: No Advance Directives Information Provided: Yes Advance Directives Date on File: 01/19/20 Sexual orientation: Straight/Heterosexual Gender identity: Female Physical Exam Vital Signs: Vital Signs: Last Vital Signs Temp 98.4 F 02/07/22 13:56 Pulse 68 02/07/22 13:56 Resp 18 02/07/22 13:56 BP 150/78 H 02/07/22 13:56 Pulse Ox 99 02/07/22 13:56 O2 Del Method 02/07/22 13:56 BMI result Body Mass Index 27.6 Const: General: cooperative, healthy appearing, comfortable and no acute distress Orientation/consciousness: patient oriented x3 Limitations: no limitations HEENT: Head: Yes normal to inspection Ears: hearing grossly normal bilaterally General nose exam: Normal external nose present Face and sinus: Yes normal facial exam Mouth: Normal oral and palatal mucosa present Throat: Yes posterior oropharynx normal Eyes: General: appearance normal, both eyes and all related structures Pupils: Equal, round and reactive pupils present Neck: Neck: Yes normal visual inspection Chest: Chest palpation & inspection: normal inspection of the chest Resp: Effort & Inspection: normal respiratory effort Auscultation: clear to auscultation bilaterally Cardio: Rate: regular rate Rhythm: regular rhythm Peripheral pulses: Peripheral pulses 2+ throughout GI: Inspection: Yes normal to inspection Palpation (GI): Soft to palpation and nontender Auscultation: normal bowel sounds Back/Spine/Pelvis: Thoracic/Lumbar Spine: thoracic and lumbar spine normal to inspection Skin: General skin exam: no rashes or lesions noted Neuro: General: patient oriented x3, no focal motor deficits and normal sensation to monofilament Cranial nerves: Yes Equal, round and reactive pupils present Cognition (Neuro): normal cognition Speech: No Abnormal speech present Gait exam (Neuro): Normal gait present Motor exam (neuro): 5/5 motor strength present throughout Extrem: Other: There is some tenderness the right proximal humerus and right anterior shoulder with full range of motion. Neurovascular intact distally General: Yes normal to inspection, Yes no pedal edema and Yes no calf tenderness Course Course Course Narrative: Elevated D-dimer. Will check CTA to rule out PE. Initial troponin is flat. Plan for repeat Reevaluation(s) Reevaluation #1: Troponin x2 unchanged, EKG shows no ischemic changes. Patient overall feels improved. Plan for discharge home with follow-up with primary care doctor. CTA is negative for PE. It does show some ground-glass 0 [place] which are nonspecific. I did explain this to the patient. She tells me that this has been seen on previous imaging. She did follow-up with pulmonology and had pulmonary function test. MDM - Chest Pain MDM Narrative Medical decision making narrative: 57-year-old female here with waking with chest pain with some associated shortness of breath which is improved on arrival but still describing some heaviness. Not exertional in nature. There is a slight pleuritic discomfort No other associated symptoms. Will check EKG, chest x-ray, lab Consider ACS, PE -ACS less likely with troponin x 2 negative, EKG normal. HEART score 2 Medical Records Data Attestation: I reviewed the patient's medical records. Lab Data Attestation: I reviewed the patient's lab results. Result diagrams: 02/07/22 10:37 02/07/22 10:37 Labs: Lab Results 02/07/22 02/07/22 02/07/22 Range/Units 10:37 10:37 10:37 WBC 3.3 L (4.8-10.8) X10*3/uL RBC 4.34 (4.20-5.50) X10*6/uL Hgb 13.0 (12.0-16.0) g/dl Hct 38.4 (37.0-47.0) % MCV 88.5 (80.0-98.0) fL MCH 30.0 (27.0-33.0) pg MCHC 33.9 (31.0-35.0) g/dl RDW 11.9 (11.0-16.0) % Plt Count 224 (160-400) X10*3/uL MPV 9.9 (9.4-12.3) fL Immature Gran % (Auto) 0.3 (0.0-0.4) % Neut % (Auto) 44.4 L (45-73) % Lymph % (Auto) 39.6 (20-40) % [place] % (Auto) 13.0 H (2-11) % Eos % (Auto) 2.4 (0-4) % Baso % (Auto) 0.3 (0-2) % Lymph # (Auto) 1.3 (1.2-4.9) X10*3/uL [place] # (Auto) 0.4 (0.1-1.2) X10*3/uL Eos # (Auto) 0.1 (0.0-0.4) X10*3/uL Baso # (Auto) 0.0 (0.0-0.2) X10*3/uL Abs Immat Gran (auto) 0.01 (0.00-0.03) X10*3/uL Absolute Neuts (auto) 1.5 L (2.0-8.3) x10*3/uL Absolute Nucleated RBC 0.000 (0.0-0.012) X10*3/uL Nucleated RBC % (auto) 0.0 (0.0-0.2) /100WBC PT 11.3 (10.0-13.1) SEC INR 1.0 (0.9-1.1) D-Dimer High Sensitivty 250 NG/ML Sodium 143 (135-145) mmol/L Potassium 4.1 (3.3-5.1) mmol/L Chloride 106 (96-108) mmol/L Carbon Dioxide 24 (22-29) mmol/L Anion Gap 17 (12-20) BUN 8 L (9-16) mg/dL Creatinine 0.80 (0.5-1.4) mg/dL Estim Creat Clear Calc 65.9 Estimated GFR > 60 Random Glucose 107 (60-115) mg/dL Calcium 9.8 (8.4-10.2) mg/dL Magnesium 1.8 (1.6-2.6) mg/dL Total Bilirubin 0.3 (0.0-1.0) mg/dL Direct Bilirubin 0.2 (0.0-0.5) mg/dL AST 36 H D (5-31) U/L ALT 38 H (0-31) U/L Alkaline Phosphatase 99 (39-117) U/L Troponin I High Sens (<3.5-17.0) ng/L Total Protein 7.5 (6.5-8.0) g/dL Albumin 4.5 (3.5-5.0) g/dL COVID-19 (VASILE) (Negative) COVID-19 Clin Com 02/07/22 02/07/22 02/07/22 Range/Units 10:37 10:37 14:54 WBC (4.8-10.8) X10*3/uL RBC (4.20-5.50) X10*6/uL Hgb (12.0-16.0) g/dl Hct (37.0-47.0) % MCV (80.0-98.0) fL MCH (27.0-33.0) pg MCHC (31.0-35.0) g/dl RDW (11.0-16.0) % Plt Count (160-400) X10*3/uL MPV (9.4-12.3) fL Immature Gran % (Auto) (0.0-0.4) % Neut % (Auto) (45-73) % Lymph % (Auto) (20-40) % [place] % (Auto) (2-11) % Eos % (Auto) (0-4) % Baso % (Auto) (0-2) % Lymph # (Auto) (1.2-4.9) X10*3/uL [place] # (Auto) (0.1-1.2) X10*3/uL Eos # (Auto) (0.0-0.4) X10*3/uL Baso # (Auto) (0.0-0.2) X10*3/uL Abs Immat Gran (auto) (0.00-0.03) X10*3/uL Absolute Neuts (auto) (2.0-8.3) x10*3/uL Absolute Nucleated RBC (0.0-0.012) X10*3/uL Nucleated RBC % (auto) (0.0-0.2) /100WBC PT (10.0-13.1) SEC INR (0.9-1.1) D-Dimer High Sensitivty NG/ML Sodium (135-145) mmol/L Potassium (3.3-5.1) mmol/L Chloride (96-108) mmol/L Carbon Dioxide (22-29) mmol/L Anion Gap (12-20) BUN (9-16) mg/dL Creatinine (0.5-1.4) mg/dL Estim Creat Clear Calc Estimated GFR Random Glucose (60-115) mg/dL Calcium (8.4-10.2) mg/dL Magnesium (1.6-2.6) mg/dL Total Bilirubin (0.0-1.0) mg/dL Direct Bilirubin (0.0-0.5) mg/dL AST (5-31) U/L ALT (0-31) U/L Alkaline Phosphatase (39-117) U/L Troponin I High Sens < 3.5 < 3.5 (<3.5-17.0) ng/L Total Protein (6.5-8.0) g/dL Albumin (3.5-5.0) g/dL COVID-19 (VASILE) Negative (Negative) COVID-19 Clin Com See Note Imaging Data Chest x-ray: Attestation: I personally reviewed and interpreted this imaging study as follows: Radiologist's impression: [address] [address] XRay Report Signed Patient: Steffanie Esquivel MR#: [id number] : 1965 Acct:[id number] Age/Sex: 57 / F ADM Date: 02/07/22 Loc: .ED Attending Dr: Ordering Physician: Araceli Lomax NP Date of Service: 02/07/22 Procedure(s): XR chest 2V Accession Number(s): [id number] cc: Araceli Lomax 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 COMPARISON: 06/27/2017 chest and rib radiographs. TECHNIQUE: 2 views of the chest were obtained. FINDINGS: No significant abnormality is noted involving the heart, lungs, mediastinum, bony thorax or soft tissues. XR/XR chest 2V IMPRESSION: No acute cardiopulmonary process. CT scan - chest: Attestation: I personally reviewed and interpreted this imaging study as follows: Radiologist's impression: FINDINGS: QUALITY OF STUDY/CONTRAST BOLUS: Satisfactory. PULMONARY ARTERIES: No central or segmental pulmonary emboli.? THORACIC AORTA: No aneurysm or dissection. LUNG: Central airways are patent. No confluent parenchymal disease identified. There are some sub-4 mm densities present bilaterally. Calcified granulomas are present. No significant bronchial wall thickening or bronchiectasis is seen. Scattered regions of groundglass opacity present in a somewhat mosaic pattern which can be seen with small small airways disease with some obstruction/air trapping, infection, interstitial edema, or vascular disease of other etiology. There is bronchial wall thickening present. No definite bronchiectasis is appreciated. There is a 5 mm noncalcified subpleural nodule seen within the right upper lobe on image 181 of 391. This is stable There are a few adjacent approximately 3 mm noncalcified densities within the right upper lobe on image 145 of 391. Within the left upper lobe adjacent to the major fissure there is a 4 mm noncalcified nodule on image 141 of 391. This is stable. Within the left upper lobe there is a region of density measuring approximately 1.4 x 0.7 cm in size on image [address] series #6. This is larger than on study of September 26, 2021 where it measured approximately 1.0 x 0.4 cm in size but is similar to study of September 18, 2020 and January 19, 2020. This could be related to mucous plugging or other probably benign process. PLEURA: No pleural effusion or pneumothorax. MEDIASTINUM: Heart mildly enlarged. No pericardial effusion.? No hilar or mediastinal lymphadenopathy.? No evidence of septal bowing or right heart strain. No coronary artery calcification appreciated. CHEST WALL/AXILLA: No axillary or internal mammary lymphadenopathy. OSSEOUS STRUCTURES: No acute or suspicious osseous abnormality.? UPPER ABDOMEN: Unremarkable.? No reflux of contrast into the hepatic veins to suggest elevated right heart pressures. CT/CT angio chest PE protocol IMPRESSION: 1.? No evidence of acute pulmonary artery embolus. 2.? No evidence of thoracic aortic aneurysm or dissection. 3.? Old granulomatous disease. 4.? Stable lung nodules as described ? 5. Groundglass mosaic appearance of interstitial lung disease which can be seen with small airways disease and air trapping, vascular disease, possible interstitial pulmonary edema, or possible infectious etiology. ECG Data ECG #1: Attestation: I personally reviewed and interpreted this ECG as follows: ECG interpretation date: 02/07/22 ECG interpretation time: 10:26 Interpretation: Normal sinus rhythm with rate of 62, normal MT, normal QRS, normal QT, nonspecific ST changes V 1, V2 V3 Discharge Plan Discharge Clinical Impression: Chest pain Patient Disposition: Home, Self-Care Instructions: Chest Pain (DC) Additional Instructions: Con determinar que tiene bajo riesgo de evento card?aco mayor. A?n debe continuar el seguimiento con eugene m?dico de atenci?n primaria con respecto a daisha episodio de dolor en el pecho. Regrese por cualquier empeoramiento de los s?ntomas. Prescriptions: No Action loperamide 2 mg capsule 2 mg PO Q6H PRN (Reason: for diarrhea) Qty: 30 0RF hydrocodone-acetaminophen 5-325 mg tablet 1 - 2 tab PO Q6H PRN (Reason: pain) Qty: 20 0RF Rx Instructions: Partial Fill upon patient request. calcium carbonate-vitamin D3 [Calcium 600 with Vitamin D3] 600 mg(1,500mg) -500 unit capsule 1 cap PO DAILY Qty: 30 11RF amitriptyline 75 mg tablet 75 mg PO BEDTIME propranolol 20 mg tablet 20 mg PO BID clonazepam 0.5 mg tablet 0.5 mg PO BEDTIME Rx Instructions: administer 30 minutes before bedtime naproxen 500 mg tablet 500 mg PO BID PRN meclizine 25 mg tablet 25 mg PO DAILY PRN fluticasone propionate [Allergy Relief (fluticasone)] 50 mcg/actuation spray,suspension 1 spray intranasal DAILY Rx Instructions: administer into each nostril loratadine [Allergy Relief (loratadine)] 10 mg tablet 10 mg PO DAILY pregabalin 50 mg capsule 50 mg PO BID alosetron [Lotronex] 0.5 mg tablet 0.5 mg PO DAILY Qty: 60 3RF levothyroxine 75 mcg tablet 75 mcg PO DAILY sumatriptan succinate 50 mg tablet 50 mg PO simethicone [Gas Relief (simethicone)] 180 mg capsule 180 mg PO QID Qty: 120 6RF dexlansoprazole [Dexilant] 60 mg capsule,biphase delayed releas 60 mg PO DAILY 30 Days Qty: 30 6RF dicyclomine 20 mg tablet 20 mg PO QID 30 Days Qty: 120 6RF sucralfate 1 gram tablet 2 g PO QPM oxybutynin chloride 10 mg tablet extended release 24hr 10 mg PO DAILY Viberzi 75 mg tablet 75 mg PO BID Qty: 60 3RF Rx Instructions: must administer with a meal/food Referrals: Anthony Blevins MD [Primary Care Provider] - 5 days Print Language: Faroese
[2022-02-07 10:42] LABS: MANUAL DIFF FLAG NO
[2022-02-07 10:44] LABS: Basophils Percent Auto 0.3 % (0-2); Eosinophils Absolute Auto 0.1 X10*3/uL (0.0-0.4); Eosinophils Percent Auto 2.4 % (0-4); Hematocrit 38.4 % (37.0-47.0); Imm Gran Abs Auto 0.01 X10*3/uL (0.00-0.03); Imm Gran Pct Auto 0.3 % (0.0-0.4); Lymphocytes Absolute Auto 1.3 X10*3/uL (1.2-4.9); Lymphocytes Percent Auto 39.6 % (20-40); Mean Corpuscular HGB Conc 33.9 g/dl (31.0-35.0); Mean Corpuscular Volume 88.5 fL (80.0-98.0); Mean Platelet Volume 9.9 fL (9.4-12.3); Monocytes Absolute Auto 0.4 X10*3/uL (0.1-1.2); Neutrophils Absolute Auto 1.5 x10*3/uL (2.0-8.3); Neutrophils Percent Auto 44.4 % (45-73); Platelet Count 224 X10*3/uL (160-400); Red Blood Count 4.34 X10*6/uL (4.20-5.50); Red Cell Distribution Width 11.9 % (11.0-16.0); White Blood Count 3.3 X10*3/uL (4.8-10.8)
[2022-02-07 10:51] LABS: Prothrombin Time 11.3 SEC (10.0-13.1)
[2022-02-07 11:04] LABS: Troponin-I High Sensitivity < 3.5 ng/L (<3.5-17.0)
[2022-02-07 11:06] LABS: COVID-19 Test Negative (Negative); IDNOW Serial# 16C4AD1C
[2022-02-07 11:18] LABS: Alanine Aminotransferase 38 U/L (0-31); Albumin Level 4.5 g/dL (3.5-5.0); Alkaline Phosphatase 99 U/L (39-117); Anion Gap 17 (12-20); Aspartate Amino Transferase 36 U/L (5-31); Bilirubin Direct 0.2 mg/dL (0.0-0.5); Bilirubin Total 0.3 mg/dL (0.0-1.0); Blood Urea Nitrogen 8 mg/dL (9-16); Calcium 9.8 mg/dL (8.4-10.2); Carbon Dioxide 24 mmol/L (22-29); Chloride 106 mmol/L (96-108); Creatinine Clr Calc Pharmacy 65.9; Estimated Glomerular Filt Rate > 60; Glucose Random 107 mg/dL (60-115); Magnesium 1.8 mg/dL (1.6-2.6); Potassium 4.1 mmol/L (3.3-5.1); Sodium 143 mmol/L (135-145); Total Protein 7.5 g/dL (6.5-8.0)
[2022-02-07 12:01] LABS: D Dimer High Sensitivity 250 NG/ML
[2022-02-07] MEDS: iohexoL 350 MG/ML 100 ML INFUS..BTL 65 ML IV (12:43)
[2022-02-07 13:56] VITALS: BP 150/78; PULSE 68; RESP 18; TEMP 36.9; O2SAT 99
[2022-02-07 15:20] LABS: Troponin-I High Sensitivity < 3.5 ng/L (<3.5-17.0)
== END 2022-02-07 15:36 | disposition home or self-care (01) ==
PROVIDERS: Nurse Practitioner Family; Emergency Provider Emergency Medicine; PCP Internal Medicine
DX: R07.89 Other chest pain (principal); Z79.899 Other long term (current) drug therapy; Z20.822 Contact with and (suspected) exposure to COVID-19
CPT/HCPCS: 36415; 71046; 71275; 80048; 80076; 83735; 84484; 85025; 85379; 85610; 87635; 93005; 99284; 99285; Q9967

== ENCOUNTER → 2022-02-13 13:16 | Outpatient (BNVA) | payer MEDICAID, SELFPAY | PROVIDERS: PCP Internal Medicine; Visit Provider Internal Medicine Pulmonary Disease | DX: J47.9 Bronchiectasis, uncomplicated (principal); R91.8 Other nonspecific abnormal finding of lung field; R06.09 Other forms of dyspnea | CPT/HCPCS: 99212 ==

== ENCOUNTER 2022-03-11 12:42 | Outpatient (REF) | payer MEDICAID, SELFPAY ==
--- NOTE | ~2022-03-11 | MM_ITS ---
EXAMINATION: MM DIAGNOSTIC DIGITAL BREAST TOMOSYNTHESIS, BILATERAL CLINICAL INFORMATION: Due for yearly. Also follow-up probable benign calcifications anterior 6:00 right breast. The lifetime risk of breast cancer based on the Tyrer-Cuzick Model is 5%. COMPARISON: Mammography: 08/31/2021, 03/01/2021, 02/22/2021 (BI-RADS 0), 10/20/2018 TECHNIQUE: Digital breast tomosynthesis is performed in both the craniocaudal and mediolateral oblique views along with computer-aided detection (CAD). Synthesized 2D images are generated from the tomosynthesis. Additional magnification right CC and magnification right ML views are obtained. FINDINGS: The breasts are heterogeneously dense, which may obscure small masses (ACR BI-RADS breast composition Category c). Parenchymal pattern is similar to prior studies and there is no interval mass or architectural abnormality or developing density. The axilla and skin contours are unremarkable. The right breast calcifications for follow-up anterior central 6:00 position are stable from prior diagnostic exams. There is either layering on the ML view or calcification within the wall of the cyst. Right breast calcifications will be reassessed again at time of annual bilateral mammography in 12 months to include magnification views. Results are provided to the patient at time of visit by the technologist. MM/MM tomosynthesis diagnostic BI IMPRESSION: -No mammographic evidence of malignancy. -Probable benign right breast calcifications for follow-up are similar to prior diagnostic exams. ASSESSMENT: BI-RADS 3: Probably Benign RECOMMENDATION: Diagnostic mammography at time of next annual exam, due in 12 months. This patient's information was entered into a reminder system with a target due date for their next mammogram.
== END 2022-03-11 12:43 | disposition home or self-care (01) ==
LOC: HO.MAMMO 12:42
PROVIDERS: PCP Internal Medicine; Visit Provider Internal Medicine
DX: R92.1 Mammographic calcification found on diagnostic imaging of breast (principal)
CPT/HCPCS: 77062; 77066

== ENCOUNTER 2022-03-27 14:22 | Outpatient (REF) | payer MEDICAID, SELFPAY ==
[2022-03-27 14:48] LABS: MANUAL DIFF FLAG NO
[2022-03-27 15:05] LABS: Basophils Percent Auto 0.6 % (0-2); Eosinophils Absolute Auto 0.1 X10*3/uL (0.0-0.4); Eosinophils Percent Auto 2.3 % (0-4); Hematocrit 39.1 % (37.0-47.0); Hemoglobin 13.3 g/dl (12.0-16.0); Imm Gran Abs Auto 0.02 X10*3/uL (0.00-0.03); Imm Gran Pct Auto 0.6 % (0.0-0.4); Lymphocytes Absolute Auto 1.6 X10*3/uL (1.2-4.9); Lymphocytes Percent Auto 46.3 % (20-40); Mean Corpuscular Hemoglobin 30.1 pg (27.0-33.0); Mean Corpuscular Volume 88.5 fL (80.0-98.0); Mean Platelet Volume 10.1 fL (9.4-12.3); Monocytes Absolute Auto 0.3 X10*3/uL (0.1-1.2); Monocytes Percent Auto 9.7 % (2-11); Neutrophils Absolute Auto 1.4 x10*3/uL (2.0-8.3); Neutrophils Percent Auto 40.5 % (45-73); Platelet Count 251 X10*3/uL (160-400); Red Blood Count 4.42 X10*6/uL (4.20-5.50); Red Cell Distribution Width 12.5 % (11.0-16.0); White Blood Count 3.5 X10*3/uL (4.8-10.8)
[2022-03-27 15:51] LABS: TSH reflex Free T4 2.13 uIU/mL (0.32-4.0)
[2022-03-29 14:03] LABS: Alpha Fetoprotein 2.5 ng/mL
== END 2022-03-27 14:23 | disposition home or self-care (01) ==
LOC: HO.LAB 14:22
PROVIDERS: PCP Internal Medicine; Visit Provider Nurse Practitioner
DX: R10.84 Generalized abdominal pain (principal); K58.0 Irritable bowel syndrome with diarrhea
CPT/HCPCS: 36415; 82105; 84443; 85025; 99212

== ENCOUNTER → 2022-05-02 12:59 | Outpatient (BNVA) | payer MEDICAID, SELFPAY | PROVIDERS: PCP Internal Medicine; Visit Provider Orthopaedic Surgery | DX: S46.001A Unspecified injury of muscle(s) and tendon(s) of the rotator cuff of right shoulder, initial encounter (principal); X58.XXXA Exposure to other specified factors, initial encounter; Y93.9 Activity, unspecified; Y92.9 Unspecified place or not applicable; Y99.8 Other external cause status | CPT/HCPCS: 20610; 99212; J1100 ==

== ENCOUNTER 2022-05-06 08:21 | Outpatient (REF) | payer MEDICAID, SELFPAY ==
--- NOTE | ~2022-05-06 | US_ITS ---
EXAMINATION: US ABDOMEN COMPLETE CLINICAL INFORMATION: Generalized abdominal pain. COMPARISON: Ultrasound abdomen complete 09/13/2021. TECHNIQUE: Real-time imaging of the abdominal viscera. FINDINGS: PANCREAS: Normal. ABDOMINAL AORTA: Visualized aorta is normal in caliber however portions are obscured by bowel gas. INFERIOR VENA CAVA: Visualized portions are normal. LIVER: Liver is enlarged measuring 19.8 cm in span The liver contour is normal. There is diffuse increased liver parenchymal echogenicity, consistent with infiltrative hepatocellular disease. Likely benign 1.1 cm cyst in the left hepatic lobe. There is no intrahepatic biliary duct dilatation seen. GALLBLADDER: Surgically absent. COMMON BILE DUCT: Normal in caliber measuring 0.4 cm in diameter. RIGHT KIDNEY: Normal. No hydronephrosis. No renal calculi or focal parenchymal lesions. The kidney measures 8.9 cm in maximum dimension. LEFT KIDNEY: Normal. No hydronephrosis. No renal calculi or focal parenchymal lesions. The kidney measures 8.9 cm in maximum dimension. SPLEEN: Normal. The spleen measures 9.2 cm in maximum dimension. FREE FLUID: None. US/US abdomen complete IMPRESSION: Hepatomegaly. Increased hepatic echogenicity which can be seen in the setting of hepatic steatosis or underlying liver disease.
== END 2022-05-06 08:22 | disposition home or self-care (01) ==
LOC: HO.US 08:21
PROVIDERS: PCP Internal Medicine; Visit Provider Nurse Practitioner
DX: K58.0 Irritable bowel syndrome with diarrhea (principal); R10.84 Generalized abdominal pain
CPT/HCPCS: 76700

== ENCOUNTER → 2022-05-17 11:21 | Outpatient (BNVA) | payer MEDICAID, SELFPAY | PROVIDERS: PCP Internal Medicine; Visit Provider Nurse Practitioner | DX: K58.0 Irritable bowel syndrome with diarrhea (principal); K21.9 Gastro-esophageal reflux disease without esophagitis; R10.84 Generalized abdominal pain; M54.9 Dorsalgia, unspecified; Z79.899 Other long term (current) drug therapy | CPT/HCPCS: 99212 ==

== ENCOUNTER → 2022-06-19 13:24 | Outpatient (BNVA) | payer MEDICAID, SELFPAY | PROVIDERS: PCP Internal Medicine; Visit Provider Internal Medicine Pulmonary Disease | DX: J47.9 Bronchiectasis, uncomplicated (principal); R05.9 Cough, unspecified; K21.9 Gastro-esophageal reflux disease without esophagitis | CPT/HCPCS: 99212 ==

== ENCOUNTER → 2022-06-20 14:10 | Outpatient (BNVA) | payer MEDICAID, SELFPAY | PROVIDERS: PCP Internal Medicine; Visit Provider Obstetrics & Gynecology ==

== ENCOUNTER 2022-06-26 12:40 | Outpatient (REF) | payer MEDICAID, SELFPAY ==
--- NOTE | ~2022-06-26 | XR_ITS ---
EXAMINATION: XR LUMBOSACRAL SPINE CLINICAL INFORMATION: Lower back pain COMPARISON: None available. TECHNIQUE: Three views of the lumbosacral spine. FINDINGS: The vertebral bodies and posterior elements are normal. Disc space narrowing with osteophyte formation is seen at L2/3 consistent with mild degenerative disc disease The paraspinal soft tissues are normal. XR/XR lumbar spine 2-3V IMPRESSION: Mild degenerative disc disease at L2/3
--- NOTE | ~2022-06-26 | XR_ITS ---
EXAMINATION: XR THORACIC SPINE CLINICAL INFORMATION: Back pain COMPARISON: None available. TECHNIQUE: 3 views of the thoracic spine were obtained. FINDINGS: There is no fracture or bone destruction seen and the vertebral alignment is normal. There is no disc space narrowing. There is no abnormality of the paraspinal soft tissues. XR/XR thoracic spine 2V IMPRESSION: Unremarkable examination.
== END 2022-06-26 12:41 | disposition home or self-care (01) ==
LOC: HO.XRAY 12:40
PROVIDERS: Absent Provider Nurse Practitioner Family; PCP Internal Medicine; Visit Provider Nurse Practitioner
DX: M79.7 Fibromyalgia (principal); M54.9 Dorsalgia, unspecified; M19.041 Primary osteoarthritis, right hand; M19.042 Primary osteoarthritis, left hand
CPT/HCPCS: 72070; 72100; 99212

== ENCOUNTER → 2022-07-04 14:13 | Outpatient (BNVA) | payer MEDICAID, SELFPAY | PROVIDERS: PCP Internal Medicine; Referring Provider Internal Medicine; Visit Provider Nurse Practitioner | DX: K58.0 Irritable bowel syndrome with diarrhea (principal); K21.9 Gastro-esophageal reflux disease without esophagitis; M51.36 Other intervertebral disc degeneration, lumbar region | CPT/HCPCS: 99212 ==

== ENCOUNTER 2022-08-28 14:34 | Outpatient (REF) | payer MEDICAID, SELFPAY ==
[2022-08-28 16:58] LABS: Alanine Aminotransferase 27 U/L (0-31); Albumin Level 4.7 g/dL (3.5-5.0); Alkaline Phosphatase 102 U/L (39-117); Anion Gap 14 (12-20); Aspartate Amino Transferase 22 U/L (5-31); Bilirubin Total 0.4 mg/dL (0.0-1.0); Blood Urea Nitrogen 11 mg/dL (9-16); Calcium 10.1 mg/dL (8.4-10.2); Carbon Dioxide 27 mmol/L (22-29); Chloride 107 mmol/L (96-108); Estimated Glomerular Filt Rate > 60; Glucose Random 82 mg/dL (60-115); Lipase 17 U/L (8-78); Potassium 4.5 mmol/L (3.3-5.1); Sodium 143 mmol/L (135-145); Total Protein 7.3 g/dL (6.5-8.0)
[2022-08-28 17:22] LABS: Amylase 40 U/L (28-100)
== END 2022-08-28 14:35 | disposition home or self-care (01) ==
LOC: HO.LAB 14:34
PROVIDERS: PCP Internal Medicine; Visit Provider Nurse Practitioner
DX: R10.84 Generalized abdominal pain (principal); K21.9 Gastro-esophageal reflux disease without esophagitis; K58.0 Irritable bowel syndrome with diarrhea
CPT/HCPCS: 36415; 80053; 82150; 83690; 99212

== ENCOUNTER 2022-12-25 14:25 | Outpatient (AMB) | payer MEDICAID, SELFPAY ==
[2022-12-25 14:27] VITALS: BP 138/70; PULSE 59; O2SAT 100; BMI 27.3
--- NOTE | 2022-12-25 14:27 | A.OFFVIS_ITS ---
Intake Vital Signs 12/25/22 14:27 Height 5 ft 1 in Weight 144 lb 6.444 oz BMI 27.3 BP 138/70 Blood Pressure Location Lt brachial Position Sitting Pulse 59 Pulse Source Doppler Pulse Oximetry (%) 100 Oxygen Delivery Method Room Air Intake Visit Reasons: COPD Allergies cholestyramine Allergy (Intermediate, Verified 12/25/22 14:32) itching HPI COPD HPI Details 57-year-old lady, nonsmoker, with no lindsay or history of pulmonary disease referred for evaluation of abnormal CT scan obtained to follow-up on previously noted pulmonary nodule.? CT scan demonstrated mild bronchiectasis and 5 mm and under pulmonary nodules.? Patient denies personal or family history of lung disease or any pulmonary related concerns or complaints at this time.? She does have significant GERD and follows with Gastroenterology. Patient does complain of essentially signed reflux symptoms causing bouts of cough worse when laying down at night or after meals. After the last office visit she has been started on Incruse with good control of her underlying symptoms. She denies any recent exacerbations. [facility] Medical History Anxiety Depression Fibromyalgia GERD (gastroesophageal reflux disease) HPV in female Surgical History History of bilateral tubal ligation History of cholecystectomy History of colonoscopy Hx of elbow surgery Hx of tubal ligation Family History Family/Other Cancer Social History Household Members: None Housing: Apartment Alcohol intake: current Alcohol intake frequency: does not drink Patient Tobacco Use Status: Never used Tobacco Advance Directives Date on File: 01/19/20 Current occupational status: disabled Sexual orientation: Straight/Heterosexual Gender identity: Female Female Reproductive History Menstrual Age of Menarche: 7 Physical Exam Vital Signs: Last Vital Signs Pulse 59 12/25/22 14:27 BP 138/70 12/25/22 14:27 Pulse Ox 100 12/25/22 14:27 Oxygen Delivery Method Room Air 12/25/22 14:27 BMI result Body Mass Index 27.3 Assessment & Plan Assessment & Plan (1) GERD (gastroesophageal reflux disease): Code(s): K21.9 - Gastro-esophageal reflux disease without esophagitis Plan: No recent exacerbations, now controlled on Dexilant. (2) Cough: Code(s): R05.9 - Cough, unspecified Plan: Well controlled on current therapy a with Incruse and albuterol MDI. Continue current regimen. Coding Level of Care Code Est Pt Level 4 (49071) Diagnoses GERD (gastroesophageal reflux disease) K21.9 Cough R05.9
== END 2022-12-25 14:42 | disposition home or self-care (01) ==
PROVIDERS: PCP Internal Medicine; Visit Provider Internal Medicine Pulmonary Disease
DX: K21.9 Gastro-esophageal reflux disease without esophagitis (principal); R05.9 Cough, unspecified
CPT/HCPCS: 99214

== ENCOUNTER → 2022-12-25 14:25 | Outpatient (BNVA) | payer MEDICAID, SELFPAY | PROVIDERS: PCP Internal Medicine; Visit Provider Internal Medicine Pulmonary Disease | DX: R05.9 Cough, unspecified (principal); K21.9 Gastro-esophageal reflux disease without esophagitis | CPT/HCPCS: 99212 ==

== ENCOUNTER 2023-01-03 12:21 | Outpatient (AMB) | payer MEDICAID, SELFPAY ==
--- NOTE | 2023-01-03 12:29 | A.OFFVIS_ITS ---
Intake Vital Signs 01/03/23 12:30 Height 5 ft 1 in Weight 139 lb BMI 26.3 BP 114/55 L Blood Pressure Location Lt brachial Position Sitting Pulse 62 Intake Visit Reasons: 6 month fu Intake Note: Patient followup for GERD, diarrhea, and lab results. Patient cc: acid reflex on and off at bedtime, abdominal pain/bloating, on and off, diarrhea and some swallowing problems with dry food and medication refills. Logistics Supervisor Required: Yes Logistics Supervisor Name: [facility] interpeter. Accompanied by: Self / Same As Patient Allergies cholestyramine Allergy (Intermediate, Verified 01/03/23 12:29) itching HPI 6 month fu HPI Details Assessment & Plan (1) GERD (gastroesophageal reflux diseas e): Code(s): K21.9 - Gastro-esophageal reflux disease without esophagitis Plan: Vietnamese #Melissa Live She has had some bad news regarding her brother who was told that his cirrhosis is not end stage. With this upset she has been having more diarrhea and stomach upset. She DID receive the Viberzi 100mg bid and is taking it, when she went to [facility] she only stopped once to use the BR - proof that the medication is working. She also continues on the bentyl and has imodium. She continues on the Dexilant with good control of her HB. She asks me to check her pancreas as she is fearful about all the medication harming it. I will get enzymes and a chem panel, but reassure her that she is not on any medicines that are really known to trigger pancreatitis. I give her a Calmoseptine packet to try for rectal irritation. ROV 6 mos. (2) Irritable bowel syndrome with diarrh ea: Code(s): K58.0 - Irritable bowel syndrome with diarrhea (3) Generalized abdominal pain: Code(s): R10.84 - Generalized abdominal pain Orders: Orders Amylase Today R10.84 - Generaliz ed abdominal pain Lipase Today R10.84 - Generaliz ed abdominal pain Comprehensive Met. Panel Today R10.84 - Generaliz ed abdominal pain Medications: Refilled dexlansoprazole (D exilant) 60 mg PO DAILY 30 days 30 caps 6RF K21.9 - Gastro-eso phageal reflux dis ease without esoph agitis dicyclomine 20 mg PO QID 30 d ays 120 tabs 6RF K58.9 - Irritable bowel syndrome wit hout diarrhea LABS Laboratory Tests 08/28/22 15:23 Estimated GFR > 60 Total Bilirubin 0.4 AST 22 ALT 27 Alkaline Phosphata se 102 Amylase 40 Lipase 17 TODAY'S VISIT Vietnamese #Noemi Live She has not had her Viberzi because of the question re: cornelia. She has had no problems and we have monitored the pancreatic fxns so she wants to continue it as it was very effective. I will get this going. She also continues on her Dexilant and her dicyclomine. ROV 8 weeks. Repeat pancreatic enzymes at that time. Educated re: sx that would require contacting the office. [facility] Medical History Anxiety Depression Fibromyalgia GERD (gastroesophageal reflux disease) HPV in female Surgical History Hx of elbow surgery Hx of tubal ligation History of colonoscopy History of bilateral tubal ligation History of cholecystectomy Family History Family/Other Cancer Social History Household Members: None Housing: Apartment Alcohol intake: current Alcohol intake frequency: does not drink Patient Tobacco Use Status: Never used Tobacco Advance Directives Date on File: 01/19/20 Current occupational status: disabled Sexual orientation: Straight/Heterosexual Gender identity: Female Female Reproductive History Menstrual Age of Menarche: 7 Review of Systems Const Denies fatigue, Denies fever(s), Denies night sweats, Denies poor appetite and Denies weight loss Eyes Details: glasses Reports requires corrective lenses ENT Reports Normal hearing present, Denies dental pain, Denies dysphagia, Denies h earing loss, Denies mouth pain, Denies odynophagia, Denies throat swelling, Denies tongue swelling and Reports other (Dentition adequate) Card Reports no additional complaints Resp Reports no additional complaints GI Denies abdominal pain, Denies melena, Denies bloating, Denies hematochezia, Denies constipation, Reports GI cramping, Denies dysphagia, Denies excessive flatus, Denies early satiety, Reports heartburn, Reports diarrhea, Denies nausea, Denies odynophagia, Denies vomiting and Denies hematemesis Skin/Breast Denies pruritus, Denies lesions, Denies rash and Denies jaundice Neuro Reports Normal hearing present and Denies Abnormal speech present Endo Denies fatigue Aller/Immun Denies throat swelling and Denies tongue swelling Physical Exam Vital Signs: Last Vital Signs Pulse 62 01/03/23 12:30 BP 114/55 L 01/03/23 12:30 BMI result Body Mass Index 26.3 Const General: cooperative, no acute distress, well developed and well groomed Nutritional Appearance: average body habitus and well nourished Orientation/consciousness: oriented to person, oriented to place and oriented to time Limitations: language barrier HEENT Head: Yes normocephalic and Yes atraumatic Eyes General: appearance normal, both eyes and all related structures Pupils: Equal, round and reactive pupils present Neck Neck: Yes normal visual inspection and Yes no lymphadenopathy Thyroid: Thyroid normal Resp Effort & Inspection: normal respiratory effort and able to speak in complete sentences Auscultation: clear to auscultation bilaterally Cardio Rate: regular rate Rhythm: regular rhythm Heart sounds: Normal, physiologic split S2 sound present Peripheral pulses: radial pulses present and posterior tibial pulses present GI Inspection: No distended and No Abdominal panniculus present Palpation (GI): Soft to palpation, nontender, no guarding, not rigid and No hepatosplenomegaly present Percussion: Yes normal to percussion Auscultation: normal bowel sounds Rectal Exam - Female: deferred Skin General skin exam: no rashes or lesions noted, turgor normal, skin not dry, no jaundice, No spider nevi and no striae Rashes: no rashes Nails: normal Neuro General: oriented to person, oriented to place and oriented to time Cranial nerves: Yes Equal, round and reactive pupils present and Yes Normal hearing present Speech: No Abnormal speech present Extrem General: Yes normal to inspection, No clubbing, No cyanosis and No edema Psych Appearance: grossly normal and well kempt Mental Status: mental status grossly normal Speech and movement: Normal speech and movement present Affect: normal affect Attitude: cooperative Thought process: Normal thought process present and not confabulating Thought content: Normal thought content present Insight: Limited insight present (Psych) Judgement: Limited judgement present (Psych) Assessment & Plan Assessment & Plan (1) GERD (gastroesophageal reflux disease): Code(s): K21.9 - Gastro-esophageal reflux disease without esophagitis Plan: Vietnamese #Noemi Live She has not had her Viberzi because of the question re: cornelia. She has had no problems and we have monitored the pancreatic fxns so she wants to continue it as it was very effective. I will get this going. She also continues on her Dexilant and her dicyclomine. ROV 8 weeks. Repeat pancreatic enzymes at that time. Educated re: sx that would require contacting the office. (2) Irritable bowel syndrome with diarrhea: Code(s): K58.0 - Irritable bowel syndrome with diarrhea Medications: New eluxadoline (Viberzi) must administer with a meal/food 100 mg PO BID 60 tabs 5RF K58.0 - Irritable bowel syndrome with diarrhea Refilled dexlansoprazole (Dexilant) 60 mg PO DAILY 30 caps 6RF 30 days K21.9 - Gastro- esophageal reflux disease without esophagitis simethicone (Gas Relief (simethicone)) 180 mg PO QID 120 caps 6RF dicyclomine 20 mg PO QID 120 tabs 6RF 30 days K58.9 - Irritable bowel syndrome without diarrhea loperamide 2 mg PO Q6H PRN 30 caps 3RF for diarrhea K58.0 - Irritable bowel syndrome with diarrhea Coding Level of Care Code Est Pt Level 3 (96149) Diagnoses GERD (gastroesophageal reflux disease) K21.9 Irritable bowel syndrome with diarrhea K58.0
[2023-01-03 12:30] VITALS: BP 114/55; PULSE 62; BMI 26.3
== END 2023-01-03 12:53 | disposition home or self-care (01) ==
PROVIDERS: PCP Internal Medicine; Visit Provider Nurse Practitioner
DX: K21.9 Gastro-esophageal reflux disease without esophagitis (principal); K58.0 Irritable bowel syndrome with diarrhea
CPT/HCPCS: 99213

== ENCOUNTER → 2023-01-03 12:21 | Outpatient (BNVA) | payer MEDICAID, SELFPAY | PROVIDERS: PCP Internal Medicine; Visit Provider Nurse Practitioner | DX: K21.9 Gastro-esophageal reflux disease without esophagitis (principal); K58.0 Irritable bowel syndrome with diarrhea | CPT/HCPCS: 99212 ==

== ENCOUNTER 2023-01-27 13:17 | Outpatient (REF) | payer MEDICAID, SELFPAY ==
[2023-01-27 15:40] LABS: Cholesterol 197 mg/dL (<200); HDL Cholesterol 55 mg/dL (>40); LDL Cholesterol Calculated 120 mg/dL (<100); Triglycerides 114 mg/dL (<150)
[2023-01-27 16:01] LABS: TSH reflex Free T4 6.02 uIU/mL (0.32-4.0)
[2023-01-27 17:59] LABS: Free T4 (Free Thyroxine) 0.95 ng/dL (0.71-1.85)
[2023-01-27 18:45] LABS: Reflex LDLD? No
[2023-01-28 07:46] LABS: ~HepC Num1 0.18 S/CO (0.00-0.79); ~Hepatitis C Antibody Nonreactive (Nonreactive)
== END 2023-01-27 13:18 | disposition home or self-care (01) ==
LOC: HO.LAB 13:17
PROVIDERS: PCP Internal Medicine; Visit Provider Internal Medicine
DX: Z00.00 Encounter for general adult medical examination without abnormal findings (principal); E03.9 Hypothyroidism, unspecified
CPT/HCPCS: 36415; 80061; 84439; 84443; 86803

== ENCOUNTER 2023-02-21 12:27 | Outpatient (AMB) | payer MEDICAID, SELFPAY ==
--- NOTE | 2023-02-21 12:29 | MHC.OFFVIS ---
Intake Vital Signs 02/21/23 12:42 Height 5 ft 1 in Weight 134 lb 7.712 oz BMI 25.4 BP 115/66 Blood Pressure Location Lt brachial Position Sitting Pulse 69 Intake Visit Reasons: 8 week follow up Intake Note: Steffanie presents in the office as a 8 week follow up. CC: She was given the Tolteridone but she stopped taking because she was having burning and discomfort in her stomach and when she urinates. 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 She has had no problems and we have monitored the pancreatic fxns so she wants to continue it as it was very effective. I will get this going. She also continues on her Dexilant and her dicyclomine. ROV 8 weeks. Repeat pancreatic enzymes at that time. Educated re: sx that would require contacting the office. (2) Irritable bowel syndrome with diarrhea: Code(s): K58.0 - Irritable bowel syndrome with diarrhea Medications: New eluxadoline (Viber zi) must admini ster with a meal/f ood 100 mg PO BID 60 t abs 5RF K58.0 - Irritable bowel syndrome wit h diarrhea Refilled dexlansoprazole (D exilant) 60 mg PO DAILY 30 caps 6RF 30 days K21.9 - Gastro-eso phageal reflux dis ease without esoph agitis simethicone (Gas R elief (simethicone )) 180 mg PO QID 120 caps 6RF dicyclomine 20 mg PO QID 120 t abs 6RF 30 days K58.9 - Irritable bowel syndrome wit hout diarrhea loperamide 2 mg PO Q6H PRN 30 caps 3RF for diar deann K58.0 - Irritable bowel syndrome wit h diarrhea TODAY'S VISIT English #Aleks Franklin She received the VIberzi and at 100mg it was controlling her diarrhea well - until she heard that her son had a return of the cancer of his tongue. He is now doing well and the diarrhea is resolving. She lost wt. but now is also taking Ensure supplementation to address this. She is taking loperimide as well, but she was able to decrease it to 1 a day. She also has bentyl. We again emphasize that she needs to stop the VIberzi for a while if she becomes constipated and she again acknowledges that she is aware of this. She is having urinary problems, OAB and now potential urinary retention. She sees urology. She was put on tolteradine, but it caused her a feeling of urinary burning so she went back to her oxybutinin. However, this may worsen urinary retention. She will be due for a colonoscopy in 2023 and we will discuss this at the next visit. She also had an elevated TSH in January being followed by Dr. Steward and he recently increased her thyroid medication. ROV 6 mos. PFSH Medical History HPV in female GERD (gastroesophageal reflux disease) Anxiety Depression Fibromyalgia Surgical History Hx of elbow surgery Hx of tubal ligation History of colonoscopy History of bilateral tubal ligation History of cholecystectomy Family History Family/Other Cancer Social History Household Members: None Housing: Apartment Alcohol intake: current Alcohol intake frequency: does not drink Patient Tobacco Use Status: Never used Tobacco Advance Directives Date on File: 01/19/20 Current occupational status: disabled Sexual orientation: Straight/Heterosexual Gender identity: Female Female Reproductive History Menstrual Age of Menarche: 7 Review of Systems Const Denies fatigue, Denies fever(s), Denies night sweats, Denies poor appetite and Denies weight loss Eyes Details: glasses Reports requires corrective lenses ENT Reports Normal hearing present, Denies dental pain, Denies dysphagia, Denies hearing loss, Denies mouth pain, Denies odynophagia, Denies throat swelling, Denies tongue swelling and Reports other (Dentition adequate) Card Reports no additional complaints Resp Reports no additional complaints GI Denies abdominal pain, Denies melena, Denies bloating, Denies hematochezia, Denies constipation, Denies GI cramping, Denies dysphagia, Denies excessive flatus, Denies early satiety, Reports heartburn, Reports diarrhea, Denies nausea, Denies odynophagia, Denies vomiting and Denies hematemesis Reports urinary hesitancy and Reports urinary urgency Skin/Breast Denies pruritus, Denies lesions, Denies rash and Denies jaundice Neuro Reports Normal hearing present and Denies Abnormal speech present Endo Denies fatigue Aller/Immun Denies throat swelling and Denies tongue swelling Physical Exam Vital Signs: Last Vital Signs Pulse 69 02/21/23 12:42 BP 115/66 02/21/23 12:42 BMI result Body Mass Index 25.4 Const General: cooperative, no acute distress, well developed and well groomed Nutritional Appearance: average body habitus and well nourished Orientation/consciousness: oriented to person, oriented to place and oriented to time Limitations: language barrier HEENT Head: Yes normocephalic and Yes atraumatic Eyes General: appearance normal, both eyes and all related structures Pupils: Equal, round and reactive pupils present Neck Neck: Yes normal visual inspection and Yes no lymphadenopathy Thyroid: Thyroid normal Resp Effort & Inspection: normal respiratory effort and able to speak in complete sentences Auscultation: clear to auscultation bilaterally Cardio Rate: regular rate Rhythm: regular rhythm Heart sounds: Normal, physiologic split S2 sound present Peripheral pulses: radial pulses present and posterior tibial pulses present GI Inspection: No distended, No Abdominal panniculus present and Yes obesity Palpation (GI): Soft to palpation, nontender, no guarding, not rigid and No hepatosplenomegaly present Percussion: Yes normal to percussion Auscultation: normal bowel sounds Rectal Exam - Female: deferred Skin General skin exam: no rashes or lesions noted, turgor normal, skin not dry, no jaundice, No spider nevi and no striae Rashes: no rashes Nails: normal Neuro General: oriented to person, oriented to place and oriented to time Cranial nerves: Yes Equal, round and reactive pupils present and Yes Normal hearing present Speech: No Abnormal speech present Extrem General: Yes normal to inspection, No clubbing, No cyanosis and No edema Psych Appearance: grossly normal and well kempt Mental Status: mental status grossly normal Speech and movement: Normal speech and movement present Affect: normal affect Attitude: cooperative Thought process: Normal thought process present and not confabulating Thought content: Normal thought content present Insight: Limited insight present (Psych) Judgement: Limited judgement present (Psych) Assessment & Plan Assessment & Plan (1) GERD (gastroesophageal reflux disease): Code(s): K21.9 - Gastro-esophageal reflux disease without esophagitis (2) Irritable bowel syndrome with diarrhea: Code(s): K58.0 - Irritable bowel syndrome with diarrhea Plan English #Noemi, Live She received the VIberzi and at 100mg it was controlling her diarrhea well - until she heard that her son had a return of the cancer of his tongue. He is now doing well and the diarrhea is resolving. She lost wt. but now is also taking Ensure supplementation to address this. She is taking loperimide as well, but she was able to decrease it to 1 a day. She also has bentyl. We again emphasize that she needs to stop the VIberzi for a while if she becomes constipated and she again acknowledges that she is aware of this. She is having urinary problems, OAB and now potential urinary retention. She sees urology. She was put on tolteradine, but it caused her a feeling of urinary burning so she went back to her oxybutinin. However, this may worsen urinary retention. She will be due for a colonoscopy in 2023 and we will discuss this at the next visit. She also had an elevated TSH in January being followed by Dr. Steward and he recently increased her thyroid medication. ROV 6 mos. Coding Level of Care Code Est Pt Level 3 (35696) Diagnoses GERD (gastroesophageal reflux disease) K21.9 Irritable bowel syndrome with diarrhea K58.0
[2023-02-21 12:42] VITALS: BP 115/66; PULSE 69; BMI 25.4
== END 2023-02-21 13:13 | disposition home or self-care (01) ==
PROVIDERS: PCP Internal Medicine; Visit Provider Nurse Practitioner
DX: K21.9 Gastro-esophageal reflux disease without esophagitis (principal); K58.0 Irritable bowel syndrome with diarrhea
CPT/HCPCS: 99213

== ENCOUNTER → 2023-02-21 12:27 | Outpatient (BNVA) | payer MEDICAID, SELFPAY | PROVIDERS: PCP Internal Medicine; Visit Provider Nurse Practitioner | DX: K21.9 Gastro-esophageal reflux disease without esophagitis (principal); K58.0 Irritable bowel syndrome with diarrhea | CPT/HCPCS: 99212 ==

== ENCOUNTER 2023-03-14 13:20 | Outpatient (REF) | payer MEDICAID, SELFPAY ==
--- NOTE | ~2023-03-14 | MM_ITS ---
EXAMINATION: MM DIAGNOSTIC DIGITAL BREAST TOMOSYNTHESIS, BILATERAL CLINICAL INFORMATION: Two-year follow-up right breast calcifications approximate 6:00 axis, anterior one third. COMPARISON: Mammography: 03/03/2022, 08/31/2021, 02/22/2021, (BI-RADS 0) and dating back to 2018. TECHNIQUE: Digital breast tomosynthesis is performed in both the craniocaudal and mediolateral oblique views along with computer-aided detection (CAD). Synthesized 2D images are generated from the tomosynthesis. In addition, spot magnification right CC and ML views were obtained. FINDINGS: The breasts are heterogeneously dense, which may obscure small masses (ACR BI-RADS breast composition Category c). A few grouped calcifications in the 6:00 axis of the right breast, anterior one third, are again noted, and again appear to layer on the 90 degree ML view, or possibly within the wall of a cyst on the CC view. Otherwise, they remain unchanged since 02/22/2021 in both number and morphology and are benign. No further follow-up recommended. Otherwise, There are no suspicious masses, suspicious grouped calcifications, or areas of architectural distortion in either breast. The parenchymal pattern is stable from prior exams. MM/MM tomosynthesis diagnostic BI IMPRESSION: There are no findings suspicious for malignancy in either breast. Right breast calcifications anteriorly at 6:00 are benign and likely represent milk of calcium or calcium within the wall of a cyst. No further follow-up required. Recommend the patient return to routine annual screening. ASSESSMENT: BI-RADS BI-RADS 2 - Benign Findings RECOMMENDATION: 1 year F/U Results were provided to the patient at time of visit by the technologist. This patient's information was entered into a reminder system with a target due date for their next mammogram.
== END 2023-03-14 13:21 | disposition home or self-care (01) ==
LOC: HO.MAMMO 13:20
PROVIDERS: PCP Internal Medicine; Visit Provider Internal Medicine
DX: R92.1 Mammographic calcification found on diagnostic imaging of breast (principal)
CPT/HCPCS: 77062; 77066

== ENCOUNTER → 2023-03-14 13:30 | Outpatient (BNV) | payer MEDICAID, SELFPAY | PROVIDERS: PCP Internal Medicine; Visit Provider Radiology Diagnostic Radiology | DX: R92.1 Mammographic calcification found on diagnostic imaging of breast (principal) | CPT/HCPCS: 77062; 77066 ==

== ENCOUNTER 2023-06-17 14:19 | Outpatient (REF) | payer MEDICAID, SELFPAY ==
[2023-06-17 17:18] LABS: TSH reflex Free T4 9.46 uIU/mL (0.32-4.0)
[2023-06-17 18:22] LABS: Free T4 (Free Thyroxine) 0.83 ng/dL (0.71-1.85)
== END 2023-06-17 14:20 | disposition home or self-care (01) ==
LOC: HO.HHCL 14:19
PROVIDERS: Visit Provider Internal Medicine
DX: E03.9 Hypothyroidism, unspecified (principal)
CPT/HCPCS: 36415; 84439; 84443

== ENCOUNTER 2023-06-26 08:52 | Outpatient (REF) | payer MEDICAID, SELFPAY ==
--- NOTE | 2023-06-26 08:55 | EMG_ITS ---
Bilateral tibial and peroneal motor studies were performed. Bilateral superficial peroneal, sural, and median and lateral plantar studies were performed. Tibial H reflexes were obtained and paraspinal muscles were tested with a needle. IMPRESSION: Mild to moderate axonal sensory motor peripheral neuropathy. MD BETTE Henderson/DEDRICKL / [phone]
== END 2023-06-26 08:53 | disposition home or self-care (01) ==
LOC: HO.NEURO 08:52
PROVIDERS: PCP Internal Medicine; Visit Provider Internal Medicine
DX: M79.604 Pain in right leg (principal); M79.605 Pain in left leg
CPT/HCPCS: 95886; 95913; 99212

== ENCOUNTER 2023-06-26 13:52 | Outpatient (AMB) | payer MEDICAID, SELFPAY ==
--- NOTE | 2023-06-26 13:58 | MHC.OFFVIS ---
Intake Vital Signs 06/26/23 13:59 Height 5 ft 1 in Weight 138 lb 14.259 oz BMI 26.2 BP 109/76 Blood Pressure Location Rt brachial Position Sitting Pulse 60 Pulse Source Doppler Pulse Oximetry (%) 98 Oxygen Delivery Method Room Air Intake Visit Reasons: COPD Corn Press Operator Required: Yes Corn Press Operator Name: Lorelei Soliz Sanjay Allergies cholestyramine Allergy (Intermediate, Verified 02/21/23 12:43) itching HPI COPD HPI Details 58-year-old lady, nonsmoker, with no prior history of pulmonary disease referred for evaluation of abnormal CT scan obtained to follow-up on previously noted pulmonary nodule.? CT scan demonstrated mild bronchiectasis and 5 mm and under pulmonary nodules.? Patient denies personal or family history of lung disease or any pulmonary related concerns or complaints at this time.? She does have significant GERD and follows with Gastroenterology. Patient has been using Incruse with good control of her underlying symptoms. She also continues on dexlansoprazole with reasonable control of her GERD. [facility] Medical History HPV in female GERD (gastroesophageal reflux disease) Anxiety Depression Fibromyalgia Surgical History Hx of elbow surgery Hx of tubal ligation History of colonoscopy History of bilateral tubal ligation History of cholecystectomy Family History Family/Other Cancer Social History Household Members: None Housing: Apartment Alcohol intake: current Alcohol intake frequency: does not drink Patient Tobacco Use Status: Never used Tobacco Advance Directives Date on File: 01/19/20 Current occupational status: disabled Sexual orientation: Straight/Heterosexual Gender identity: Female Female Reproductive History Menstrual Age of Menarche: 7 Review of Systems Const Denies daytime sleepiness, Denies excessive sweating, Denies fatigue, Denies fever(s), Denies lethargy, Denies malaise, Denies night sweats, Denies snoring and Denies weight loss Eyes Denies blurry vision and Denies itchy eyes ENT Denies nasal congestion, Denies post nasal drip, Denies sinus pain, Denies sinus pressure and Denies other ( Thrush) Card Denies chest pain, Denies pedal edema, Denies dyspnea, Denies orthopnea and Denies paroxysmal nocturnal dyspnea Resp Denies cough, Denies hemoptysis, Denies excessive phlegm production, Denies dyspnea, Denies snoring and Denies wheezing GI Denies abdominal pain and Denies heartburn Musc Denies myalgias, Denies arthralgias and Denies joint swelling Skin/Breast Denies rash Neuro Denies memory loss and Denies seizure-like activity Psych Denies abnormal sleep pattern, Denies anxiety and Denies memory loss Endo Denies excessive sweating, Denies fatigue and Denies heat intolerance Jacob/Lymph Denies easy bruising Aller/Immun Denies itchy eyes, Denies seasonal rhinorrhea and Denies wheezing Physical Exam Vital Signs: Last Vital Signs Pulse 60 06/26/23 13:59 BP 109/76 06/26/23 13:59 Pulse Ox 98 06/26/23 13:59 Oxygen Delivery Method Room Air 06/26/23 13:59 BMI result Body Mass Index 26.2 Const General: no acute distress and alert Nutritional Appearance: not obese Orientation/consciousness: Other orientation findings ( oriented) HEENT Head: Yes atraumatic Eyes General: appearance normal, both eyes and all related structures Sclerae: sclerae normal EOM: EOMs intact bilaterally Neck Neck: Yes supple Lymphatic: no lymphadenopathy noted Resp Effort & Inspection: normal respiratory effort and no use of accessory muscles Auscultation: clear to auscultation bilaterally Cardio Rate: regular rate Rhythm: regular rhythm Heart sounds: no gallops, no murmurs and no rubs Skin General skin exam: other ( warm) Extrem General: No clubbing, No cyanosis and No edema Assessment & Plan Assessment & Plan (1) Bronchiectasis: Code(s): J47.9 - Bronchiectasis, uncomplicated Plan: No recent exacerbations. Controlled on Incruse. Continue current regimen. (2) Pulmonary nodules: Code(s): R91.8 - Other nonspecific abnormal finding of lung field Plan: Will repeat CT chest in December of 2023. (3) Cough: Code(s): R05.9 - Cough, unspecified Plan: Well controlled on dexlansoprazole. Continue current regimen. Orders: Orders CT chest wo IV con 12/27/23 R91.8 - Other nonspecific abnormal finding of lung field Medications: Refilled albuterol sulfate 90 mcg/actuation (Ventolin HFA) 2 puffs inhalation Q4-6H PRN 18 grams 6RF for wheezing umeclidinium 62.5 mcg/actuation (Incruse Ellipta) 1 inh inhalation DAILY 1 ea 6RF 30 days Coding Level of Care Code Est Pt Level 4 (28466) Diagnoses Bronchiectasis J47.9 Pulmonary nodules R91.8 Cough R05.9
[2023-06-26 13:59] VITALS: BP 109/76; PULSE 60; O2SAT 98; BMI 26.2
== END 2023-06-26 14:21 | disposition home or self-care (01) ==
PROVIDERS: PCP Internal Medicine; Visit Provider Internal Medicine Pulmonary Disease
DX: J47.9 Bronchiectasis, uncomplicated (principal); R91.8 Other nonspecific abnormal finding of lung field; R05.9 Cough, unspecified
CPT/HCPCS: 99214

== ENCOUNTER 2023-07-02 12:28 | Outpatient (AMB) | payer MEDICAID, SELFPAY ==
[2023-07-02 13:17] VITALS: BP 102/68; PULSE 68; RESP 15; TEMP 36.2; O2SAT 98
--- NOTE | 2023-07-02 13:17 | MHC.OFFVIS ---
Intake Vital Signs 07/02/23 13:17 Weight 138 lb 14.259 oz BP 102/68 Blood Pressure Location Lt brachial Position Sitting Respiration 15 Pulse 68 Pulse Source Pulse Oximeter Temp 97.2 F Temp Source Skin Pulse Oximetry (%) 98 Oxygen Delivery Method Room Air Intake Visit Reasons: fibromyalgia and Osteroarthritis Auditor Supervisor Required: Yes Auditor Supervisor Name: Roman #[id number] Allergies cholestyramine Allergy (Intermediate, Verified 02/21/23 12:43) itching Medication List - Last Reconciled 07/02/23 by LO Alarcon- albuterol sulfate 90 mcg/actuation (Ventolin HFA) 2 puffs inhalation Q4-6H PRN calcium carbonate-vitamin D3 600 mg-12.5 mcg (500 unit) (Calcium 600 with Vitamin D3) 1 cap PO DAILY clonazepam 0.5 mg PO BEDTIME dexlansoprazole (Dexilant) 60 mg PO DAILY 30 days dicyclomine 20 mg PO QID 30 days eluxadoline (Viberzi) 100 mg PO BID fluticasone propionate 50 mcg/actuation (Allergy Relief (fluticasone)) 1 spray intranasal DAILY levothyroxine 88 mcg PO DAILY loperamide 2 mg PO Q6H PRN loratadine (Allergy Relief (loratadine)) 10 mg PO DAILY meclizine 25 mg PO DAILY PRN naproxen 500 mg PO BID PRN oxybutynin chloride ER 15 mg PO DAILY propranolol 20 mg PO BID simethicone (Gas Relief (simethicone)) 180 mg PO QID sumatriptan succinate 50 mg PO umeclidinium 62.5 mcg/actuation (Incruse Ellipta) 1 inh inhalation DAILY 30 days HPI HPI Comments History of Present Illness Details Ms. James 58 year olf female presents for follow-up of Fibromyalgia. Last seen in June 2022. Patient reports continued chronic head to toe pain due to her fibromyalgia. She states that she is sleeping well. Denies depression. Her symptoms are currently managed with amitriptyline and Lyrica by her PCP. She uses naproxen as needed and finds this effective. She reports chronic bilateral hand pain at the base of both thumbs and at a few DIPs especially on the left hand. She previously had numbness in the right hand this resolved after right cubital tunnel release 12/27/2021 with [facility] [place] [facility]. She states her hand numbness resolved after surgery. Follows with GI for irritable bowel syndrome and GERD. 06/2022 Visit Magdalena: Patient is a 57yoF who presents for follow-up of Fibromyalgia. Last seen in June 2021. Patient reports continued chronic head to toe pain due to her fibromyalgia. She states that she is sleeping well. Denies depression. Her symptoms are currently managed with amitriptyline and Lyrica by her PCP. She uses naproxen as needed and finds this effective. She reports chronic bilateral hand pain at the base of both thumbs and at a few DIPs especially on the left hand. She previously had numbness in the right hand this resolved after right cubital tunnel release 12/27/2021 with [facility] [place] [facility]. She states her hand numbness resolved after surgery. Follows with GI for irritable bowel syndrome and GERD. [facility] Medical History HPV in female GERD (gastroesophageal reflux disease) Anxiety Depression Fibromyalgia Surgical History Hx of elbow surgery Hx of tubal ligation History of colonoscopy History of bilateral tubal ligation History of cholecystectomy Family History Family/Other Cancer Social History Household Members: None Housing: Apartment Alcohol intake: current Alcohol intake frequency: does not drink Patient Tobacco Use Status: Never used Tobacco Advance Directives Date on File: 01/19/20 Current occupational status: disabled Sexual orientation: Straight/Heterosexual Gender identity: Female Female Reproductive History Menstrual Age of Menarche: 7 Review of Systems Const All systems reviewed & are unremarkable except as noted in HPI and below Physical Exam Vital Signs: Last Vital Signs Temp 97.2 F 07/02/23 13:17 Pulse 68 07/02/23 13:17 Resp 15 07/02/23 13:17 BP 102/68 07/02/23 13:17 Pulse Ox 98 07/02/23 13:17 Oxygen Delivery Method Room Air 07/02/23 13:17 APPEARANCE: Patient in no acute distress EYES: no redness, pupils equal and reactive to light, eyelids normal EARS: External ear normal NOSE/SINUS: Airflow through both nares, no nasal discharge, no bleeding THROAT: Oral mucosa moist, no ulcerations NECK: No thyromegaly or masses, no adenopathy, trachea midline. HEART: Regular rhythm, S1-S2 heard, no murmurs, rubs or gallops. LUNG: Clear to auscultation, respiratory rate regular and nonlabored. ABD: Normal bowel sounds, abdomen soft, nontender. EXTREMITIES: No edema, no calf tenderness, normal peripheral pulses. NEURO: Oriented and alert x3. No focal weakness. Gait normal. SKIN: No inflammatory or neoplastic lesions. Normal color and turgor JOINT EXAM:?? Cervical Spine:? Full range of motion without pain; no tenderness. Thoracic Spine:? No scoliosis.? No tenderness on palpation. Lumbar Spine:? Alignment normal.? Full range of motion, slight tenderness to palpation. Hands: LEFT:? Normal pain-free range of motion. Slight tenderness to palpation at the base of the thumb. Tenderness and bony enlargement at DIP 2,4,5 consistent with Heberden's node. No swelling, increased warmth or erythema. Able to make a full fist and has a good radiography technician strength. RIGHT: Normal pain-free range of motion. Slight tenderness to palpation at the base of the thumb. Slight bony enlargement at DIP. No swelling, increased warmth or erythema. No other tenderness. Able to make a full fist and has good radiography technician strength Wrists:? Normal pain-free range of motion without tenderness, swelling, increased warmth or erythema. Elbows: Normal pain-free range of motion without tenderness, swelling, increased warmth or erythema. Shoulders:?? Full range of motion some discomfort that improved with range of motion. No tenderness, weakness, swelling, increased warmth or erythema. Hips:? Full range of motion without pain. Hip bursa:? No tenderness. Knees:?? Normal pain-free range of motion without tenderness, swelling, increased warmth or erythema.? There is no effusion or crepitation Ankles:? Normal pain-free range of motion without tenderness, swelling, increased warmth or erythema. Feet:? Normal pain-free range of motion without tenderness, swelling, increased warmth or erythema. Tender points: No tenderness to digital palpation at the occiput, trapezius, second rib, lateral epicondyle, knees, greater trochanter and gluteal area bilaterally. Results Reviewed Results Reviewed: X-ray of the lumbar thoracic spine 07/03/22 FINDINGS: The vertebral bodies and posterior elements are normal. Disc space narrowing with osteophyte formation is seen at L2/3 consistent with mild degenerative disc disease The paraspinal soft tissues are normal. XR/XR lumbar spine 2-3V IMPRESSION: Mild degenerative disc disease at L2/3 THORACIC SPINE FINDINGS: There is no fracture or bone destruction seen and the vertebral alignment is normal. There is no disc space narrowing. There is no abnormality of the paraspinal soft tissues. XR/XR thoracic spine 2V IMPRESSION: Unremarkable examination. Laboratory Tests 03/12/18 08/26/20 08/26/20 16:25 09:00 09:00 WBC Hgb Hct Plt Count Sodium Potassium BUN Creatinine Random Glucose Calcium AST ALT Rheumatoid Factor < 15.0 Cycl Citrul Peptide IgG <16 SONYA Screen NEGATIVE SS-A/Ro Antibody SS-B/La Antibody Sm (Marcus) Antibody SM/[employer] IgG Antibody Scl-70 Scleroderma Ab Centromere B Antibody 08/26/20 08/26/20 02/07/22 09:00 09:00 10:37 WBC Hgb Hct Plt Count Sodium 143 Potassium 4.1 BUN 8 L Creatinine 0.80 Random Glucose 107 Calcium 9.8 AST 36 H D ALT 38 H Rheumatoid Factor Cycl Citrul Peptide IgG SONYA Screen SS-A/Ro Antibody <1.0 NEG SS-B/La Antibody <1.0 NEG Sm (Marcus) Antibody <1.0 NEG SM/[employer] IgG Antibody <1.0 NEG Scl-70 Scleroderma Ab <1.0 NEG Centromere B Antibody <1.0 NEG 03/27/22 14:46 WBC 3.5 L Hgb 13.3 Hct 39.1 Plt Count 251 Sodium Potassium BUN Creatinine Random Glucose Calcium AST ALT Rheumatoid Factor Cycl Citrul Peptide IgG SONYA Screen SS-A/Ro Antibody SS-B/La Antibody Sm (Marcus) Antibody SM/[employer] IgG Antibody Scl-70 Scleroderma Ab Centromere B Antibody EXAMINATION: XR HAND, BILATERAL XR WRIST, BILATERAL CLINICAL INFORMATION: Pain.? COMPARISON: Previous exam February 2018.? TECHNIQUE: 4 views of each hand and wrist.? FINDINGS: RIGHT: Bone alignment is normal. No fracture or dislocation is seen. There is mild arthritis at the 1st MCFP joint with joint space narrowing and osteophyte formation. There is mild arthritis at the DIP joint of the 3rd and 5th fingers with small osteophytes. Joint spaces are otherwise normal. Soft tissues are normal. LEFT: Bone alignment is normal. No fracture or dislocation is seen. There is arthritis at the DIP joint of the 3rd finger with joint space narrowing, osteophyte formation and cyst formation. This is new from February 2018 exam. There is mild arthritis at the DIP joints of the 2nd and 5th fingers with osteophytes. There is mild arthritis at the 1st MCFP joint with small osteophyte. Joint spaces are otherwise normal. Soft tissues are normal. XR/XR hand wrist RT IMPRESSION: Right: Osteoarthritis at the 1st MCFP joint and mild arthritis at the DIP joints of the 3rd and 5th fingers. ? Left: Arthritis at the DIP joint of the 3rd finger with joint space narrowing, osteophyte formation and prominent cystic change questionable for evidence of erosive osteoarthritis. Arthritis at the DIP joints of the 2nd and 5th fingers with osteophyte formation and mild arthritis at the 1st MCFP joint. ? Assessment & Plan Assessment & Plan (1) Fibromyalgia: Code(s): M79.7 - Fibromyalgia (2) Osteoarthritis of hands, bilateral: Code(s): M19.041 - Primary osteoarthritis, right hand; M19.042 - Primary osteoarthritis, left hand Qualifiers: Osteoarthritis type: primary Qualified Code(s): M19.041 - Primary osteoarthritis, right hand; M19.042 - Primary osteoarthritis, left hand Plan #OA Hand: Prior serology with negative SONYA, RF, and anti-CCP. Hand pain to the right is resolved, but the left suggest some dequervain tendinitis and tenderness to palpation of base of both thumbs and evidence of Heberden nodes, more so on the left consistent with osteoarthritis. X-rays from last year showed osteoarthritis. No synovitis on exam. She refuses injection offer today. She had surgery on the right elbow for nerve pain and wants to he the left hand done. She will discuss with PCP. They are currently focused on evaluating the radiculopathy to her lower extremities and will attend to her hands after. Continue with Tylenol, over the counter topicals such as Aspercreme, heat. If symptoms do not improve she may want to consider referral to occupational therapy. #Fibromyalgia: Her symptoms appear stable at this time. She will follow up with her PCP for further management of her fibromyalgia Follow-up 1 year or sooner if needed. 20 minutes spent reviewing chart, evaluating patient and documenting. Coding Level of Care Code Est Pt Level 3 (95212) Diagnoses Fibromyalgia M79.7 Primary osteoarthritis of both hands M19.041; M19.042 Osteoarthritis type: primary
== END 2023-07-02 13:57 | disposition home or self-care (01) ==
PROVIDERS: PCP Internal Medicine; Visit Provider Nurse Practitioner Family
DX: M79.7 Fibromyalgia (principal); M19.041 Primary osteoarthritis, right hand; M19.042 Primary osteoarthritis, left hand
CPT/HCPCS: 99213

== ENCOUNTER → 2023-07-02 12:28 | Outpatient (BNVA) | payer MEDICAID, SELFPAY | PROVIDERS: PCP Internal Medicine; Visit Provider Nurse Practitioner Family | DX: M79.7 Fibromyalgia (principal); M19.041 Primary osteoarthritis, right hand; M19.042 Primary osteoarthritis, left hand | CPT/HCPCS: 99212 ==

== ENCOUNTER 2023-07-09 16:42 | Outpatient (REF) | payer MEDICAID, SELFPAY ==
--- NOTE | ~2023-07-09 | MR_ITS ---
EXAMINATION: MR ABDOMEN WITHOUT AND WITH CONTRAST CLINICAL INFORMATION: Liver lesion seen on CT ordered by urology which recommend an MRI COMPARISON: Abdominal ultrasound 05/06/2022, CT chest 02/07/2022. No more recent CT prior available for comparison. TECHNIQUE: MRI of the abdomen before and after the IV administration of 7 mL of Gadavist was obtained using routine sequences. FINDINGS: LUNG BASES: The visualized lung bases are unremarkable. KIDNEYS AND URETERS: Bosniak 1 benign-appearing left renal cyst, no imaging follow-up recommended. GALLBLADDER: Status post cholecystectomy. LIVER AND BILIARY TREE: The liver is normal in signal and morphology. Likely benign 1.1 cm septated left hepatic lobe cyst. No other liver lesion identified however recommend correlation with any outside prior imaging. Liver is mildly enlarged measuring 18.7 cm in span. No intra or extrahepatic biliary duct dilatation. PANCREAS: Unremarkable SPLEEN: Unremarkable ADRENAL GLANDS: Unremarkable GASTROINTESTINAL TRACT: Unremarkable. LYMPH NODES: No lymphadenopathy. VASCULAR: Unremarkable ABDOMINAL WALL: Unremarkable. OSSEOUS STRUCTURES: Unremarkable. OTHER: Trace simple free fluid in the pelvis. MR/MR abdomen wo/w con IMPRESSION: 1. Likely benign 1.1 cm septated left hepatic lobe cyst. No other liver lesion identified however recommend correlation with any outside prior imaging. 2. Liver is mildly enlarged measuring 18.7 cm in span. 3. Trace simple free fluid in the pelvis.
[2023-07-09] MEDS: gadobutroL 7.5 ML VIAL IVPUSH (17:59)
== END 2023-07-09 16:43 | disposition home or self-care (01) ==
LOC: HO.MRI 16:42
PROVIDERS: PCP Internal Medicine; Visit Provider Internal Medicine
DX: K76.9 Liver disease, unspecified (principal)
CPT/HCPCS: 74183; A9585

== ENCOUNTER 2023-08-19 14:02 | Outpatient (REF) | payer MEDICAID, SELFPAY ==
[2023-08-19 17:55] LABS: TSH reflex Free T4 2.02 uIU/mL (0.32-4.0)
== END 2023-08-19 14:03 | disposition home or self-care (01) ==
LOC: HO.HHCL 14:02
PROVIDERS: Visit Provider Internal Medicine
DX: E03.9 Hypothyroidism, unspecified (principal)
CPT/HCPCS: 36415; 84443

== ENCOUNTER 2023-08-22 12:40 | Outpatient (AMB) | payer MEDICAID, SELFPAY ==
--- NOTE | 2023-08-22 12:42 | A.OFFVIS_ITS ---
Vital Signs 08/22/23 12:49 Height 5 ft 1 in Weight 136 lb 10.986 oz BMI 25.8 BP 150/77 H Blood Pressure Location Lt brachial Position Sitting Pulse 57 Intake Visit Reasons: 6 month follow up Allergies cholestyramine Allergy (Intermediate, Verified 08/27/23 14:06) itching HPI HPI 6 month follow up: Details: Assessment & Plan (1) GERD (gastroesophageal reflux disease): Code(s): K21.9 - Gastro-esophageal reflux disease without esophagitis (2) Irritable bowel syndrome with diarrhea: Code(s): K58.0 - Irritable bowel syndrome with diarrhea Plan [place] #Aleks Franklin She received the VIberzi and at 100mg it was controlling her diarrhea well - until she heard that her son had a return of the cancer of his tongue. He is now doing well and the diarrhea is resolving. She lost wt. but now is also taking Ensure supplementation to address this. She is taking loperimide as well, but she was able to decrease it to 1 a day. She also has bentyl. We again emphasize that she needs to stop the VIberzi for a while if she becomes constipated and she again acknowledges that she is aware of this. She is having urinary problems, OAB and now potential urinary retention. She sees urology. She was put on tolteradine, but it caused her a feeling of urinary burning so she went back to her oxybutinin. However, this may worsen urinary retention. She will be due for a colonoscopy in 2023 and we will discuss this at the next visit. She also had an elevated TSH in January being followed by Dr. Steward and he recently increased her thyroid medication. ROV 6 mos. Laboratory Tests 08/28/22 08/19/23 15:23 14:02 Estimated GFR > 60 Total Bilirubin 0.4 AST 22 ALT 27 Alkaline Phosphatase 102 TSH 2.02 TODAY'S VISIT [place] #Noemi Fink She has been told by her pharmacy that her viberzi needs another PA but since WE were not informed we have not been working on this. I had send a renewal 08/11. She continues on Dexilant, bentyl and simethicone. She has been u sing imodium in the meantime. She was just dx'ed with FMS and is struggling to get a PA for pregabalin. There are no prior problems with anesthesia or sedation. No ID problems. NO FHX of colon cancer or polyps. ROV 4 weeks. COUNTS INCLUDE 234 BEDS AT THE [facility] Medical History (Updated 08/27/23 @ 14:17 by Gary Lovett MD) HPV in female GERD (gastroesophageal reflux disease) Anxiety Depression Fibromyalgia Surgical History Hx of elbow surgery History of colonoscopy History of bilateral tubal ligation History of cholecystectomy Family History Family/Other Cancer Social History Household Members: None Housing: Apartment Alcohol intake: current Alcohol intake frequency: does not drink Patient Tobacco Use Status: Never used Tobacco Advance Directives Date on File: 01/19/20 Current occupational status: disabled Sexual orientation: Straight/Heterosexual Gender identity: Female Female Reproductive History Menstrual Age of Menarche: 7 Review of Systems Const Denies fatigue, Denies fever(s), Denies night sweats, Denies poor appetite and Denies weight loss Eyes Details: glasses Reports requires corrective lenses ENT Reports Normal hearing present, Denies dental pain, Denies dysphagia, Denies hearing loss, Denies mouth pain, Denies odynophagia, Denies throat swelling, Denies tongue swelling and Reports other (Dentition adequate) Card Reports no additional complaints Resp Reports no additional complaints GI Details: Denies abdominal pain, Denies melena, Denies bloating, Denies hematochezia, Denies constipation, Denies GI cramping, Denies dysphagia, Denies excessive flatus, Denies early satiety, Reports heartburn, Reports diarrhea, Denies nausea, Denies odynophagia, Denies vomiting and Denies hematemesis Skin/Breast Denies pruritus, Denies lesions, Denies rash and Denies jaundice Neuro Reports Normal hearing present and Denies Abnormal speech present Endo Denies fatigue Aller/Immun Denies throat swelling and Denies tongue swelling Physical Exam Vital Signs: Last Vital Signs Pulse 57 08/22/23 12:49 BP 150/77 H 08/22/23 12:49 BMI result Body Mass Index 25.8 Const General: cooperative, no acute distress, well developed and well groomed Nutritional Appearance: average body habitus and well nourished Orientation/consciousness: oriented to person, oriented to place and oriented to time Limitations: language barrier HEENT Head: Yes normocephalic and Yes atraumatic Eyes General: appearance normal, both eyes and all related structures Pupils: Equal, round and reactive pupils present Neck Neck: Yes normal visual inspection and Yes no lymphadenopathy Thyroid: Thyroid normal Resp Effort & Inspection: normal respiratory effort and able to speak in complete sentences Auscultation: clear to auscultation bilaterally Cardio Rate: regular rate Rhythm: regular rhythm Heart sounds: Normal, physiologic split S2 sound present Peripheral pulses: radial pulses present and posterior tibial pulses present GI Inspection: No distended and No Abdominal panniculus present Palpation (GI): Soft to palpation, nontender, no guarding, not rigid and No hepatosplenomegaly present Percussion: Yes normal to percussion Auscultation: normal bowel sounds Rectal Exam - Female: deferred Skin General skin exam: no rashes or lesions noted, turgor normal, skin not dry, no jaundice, No spider nevi and no striae Rashes: no rashes Nails: normal Neuro General: oriented to person, oriented to place and oriented to time Cranial nerves: Yes Equal, round and reactive pupils present and Yes Normal hearing present Speech: No Abnormal speech present Extrem General: Yes normal to inspection, No clubbing, No cyanosis and No edema Psych Appearance: grossly normal and well kempt Mental Status: mental status grossly normal Speech and movement: Normal speech and movement present Affect: normal affect Attitude: cooperative Thought process: Normal thought process present and not confabulating Thought content: Normal thought content present Insight: Limited insight present (Psych) Judgement: Limited judgement present (Psych) Results Reviewed Results Reviewed: Laboratory Tests 08/28/22 08/19/23 15:23 14:02 Estimated GFR > 60 Total Bilirubin 0.4 AST 22 ALT 27 Alkaline Phosphatase 102 TSH 2.02 Assessment & Plan Assessment & Plan (1) GERD (gastroesophageal reflux disease): Code(s): K21.9 - Gastro-esophageal reflux disease without esophagitis Category: Medical (2) Irritable bowel syndrome with diarrhea: Code(s): K58.0 - Irritable bowel syndrome with diarrhea Category: Medical (3) Pre-op examination: Code(s): Z01.818 - Encounter for other preprocedural examination Category: Medical Plan [place] #Noemi Fink She has been told by her pharmacy that her nakul needs another PA but since WE were not informed we have not been working on this. I had send a renewal 08/11. She continues on Dexilant, bentyl and simethicone. She has been u sing imodium in the meantime. She was just dx'ed with FMS and is struggling to get a PA for pregabalin. There are no prior problems with anesthesia or sedation. No ID problems. NO FHX of colon cancer or polyps. ROV 4 weeks. Medications: New peg 3350-electrolytes 236-22.74-6.74 -5.86 gram (Golytely) until fecal effluent is clear; do not exceed a total volume of 2,000 mL 240 mL PO Q10M 4,000 mL 0RF 1 day Z12.11 - Encounter for screening for malignant neoplasm of colon bisacodyl (Dulcolax (bisacodyl)) 10 mg (2 x 5 mg) PO BEDTIME 4 tabs 0RF 2 days Refilled dicyclomine 20 mg PO QID 120 tabs 6RF 30 days K58.9 - Irritable bowel syndrome without diarrhea simethicone (Gas Relief (simethicone)) 180 mg PO QID 120 caps 6RF dexlansoprazole (Dexilant) 60 mg PO DAILY 30 caps 6RF 30 days K21.9 - Gastro- esophageal reflux disease without esophagitis Coding Level of Care Code Est Pt Level 4 (59354) Diagnoses GERD (gastroesophageal reflux disease) K21.9 Irritable bowel syndrome with diarrhea K58.0 Pre-op examination Z01.818
--- NOTE | 2023-08-22 12:46 | MHC.OFFVIS ---
Vital Signs 08/22/23 12:49 Height 5 ft 1 in Weight 136 lb 10.986 oz BMI 25.8 BP 150/77 H Blood Pressure Location Lt brachial Position Sitting Pulse 57 Intake Visit Reasons: 6 month follow up Intake Note: Steffanie presents in the office as a 6 month follow up. CC: Ammunition Components Inspector Required: Yes Ammunition Components Inspector Name: [email or web address] [email or web address] Allergies cholestyramine Allergy (Intermediate, Verified 08/22/23 12:50) itching PFSH Medical History HPV in female GERD (gastroesophageal reflux disease) Anxiety Depression Fibromyalgia Surgical History Hx of elbow surgery Hx of tubal ligation History of colonoscopy History of bilateral tubal ligation History of cholecystectomy Family History Family/Other Cancer Social History Household Members: None Housing: Apartment Alcohol intake: current Alcohol intake frequency: does not drink Patient Tobacco Use Status: Never used Tobacco Advance Directives Date on File: 01/19/20 Current occupational status: disabled Sexual orientation: Straight/Heterosexual Gender identity: Female Female Reproductive History Menstrual Age of Menarche: 7 Assessment & Plan Assessment & Plan (1) GERD (gastroesophageal reflux disease): Code(s): K21.9 - Gastro-esophageal reflux disease without esophagitis Category: Medical (2) Irritable bowel syndrome with diarrhea: Code(s): K58.0 - Irritable bowel syndrome with diarrhea Category: Medical Coding Diagnoses GERD (gastroesophageal reflux disease) K21.9 Irritable bowel syndrome with diarrhea K58.0
[2023-08-22 12:49] VITALS: BP 150/77; PULSE 57; BMI 25.8
== END 2023-08-22 13:18 | disposition home or self-care (01) ==
PROVIDERS: PCP Internal Medicine; Visit Provider Nurse Practitioner
DX: K21.9 Gastro-esophageal reflux disease without esophagitis (principal); K58.0 Irritable bowel syndrome with diarrhea; Z01.818 Encounter for other preprocedural examination
CPT/HCPCS: 99214

== ENCOUNTER → 2023-08-22 12:40 | Outpatient (BNVA) | payer MEDICAID, SELFPAY | PROVIDERS: PCP Internal Medicine; Visit Provider Nurse Practitioner | DX: K21.9 Gastro-esophageal reflux disease without esophagitis (principal); K58.0 Irritable bowel syndrome with diarrhea; Z79.899 Other long term (current) drug therapy | CPT/HCPCS: 99212 ==

== ENCOUNTER 2023-08-27 13:57 | Outpatient (AMB) | payer MEDICAID, SELFPAY ==
--- NOTE | 2023-08-27 14:00 | MHC.OFFVIS ---
Vital Signs 08/27/23 14:01 Height 5 ft 1 in Weight 136 lb 10.986 oz BMI 25.8 BP 122/74 Intake Visit Reasons: annual/confirmed Customer Response Representative Required: Yes Customer Response Representative Language: Malt House Operator Name: Linn CROW Information Interpreted: non-clinical & clinical Watch Guard Gate: Watch Guard Gate Present (Linn CROW) Accompanied by: Self / Same As Patient Allergies cholestyramine Allergy (Intermediate, Verified 08/27/23 14:06) itching Post menopausal: Yes HPI Comments Details: Presenting for annual exam. No complaints. Last Pap/HPV was negative in 04/03 Last Mammogram was BI-RADS 2 in 04/05 Last Colonoscopy was in 08/25, the recommendation was to repeat in 10 years, the patient is scheduled for next screening colonoscopy in October of 2023 [facility] Medical History (Updated 08/27/23 @ 14:17 by Gary Lovett MD) HPV in female GERD (gastroesophageal reflux disease) Anxiety Depression Fibromyalgia Surgical History Hx of elbow surgery History of colonoscopy History of bilateral tubal ligation History of cholecystectomy Family History Family/Other Cancer Social History Household Members: None Housing: Apartment Alcohol intake: current Alcohol intake frequency: does not drink Patient Tobacco Use Status: Never used Tobacco Advance Directives Date on File: 01/19/20 Current occupational status: disabled Sexual orientation: Straight/Heterosexual Gender identity: Female Female Reproductive History Menstrual Age of Menarche: 7 control method: permanent sterilization Menopause type: natural Total pregnancies: 4 Full term: 2 Number of Living Children: 2 Ab spontaneous: 2 Date of last pap smear: 04/04/21 History of abnormal pap smear: Yes (HPV +) Date of Mammogram: 03/14/23 Review of Systems Const All systems reviewed & are unremarkable except as noted in HPI and below Card Reports as per HPI Resp Reports as per HPI GI Reports as per HPI and Reports no additional complaints Reports as per HPI Physical Exam Vital Signs: Last Vital Signs BP 122/74 08/27/23 14:01 BMI result Body Mass Index 25.8 Const General: cooperative, healthy appearing and comfortable Chest Chest palpation & inspection: normal inspection of the chest and normal palpation of entire chest wall Breast/axilla inspection: normal inspection of the breasts and normal inspection of the axillae Breast/axilla palpation: normal palpation of the breasts, normal palpation of the axillae and no axillary lymphadenopathy Resp Effort & Inspection: normal respiratory effort Auscultation: clear to auscultation bilaterally Percussion: percussion normal Cardio Palpation: normal PMI Rate: regular rate Rhythm: regular rhythm Heart sounds: no murmurs and no rubs Peripheral pulses: Peripheral pulses 2+ throughout GI Inspection: Yes normal to inspection Palpation (GI): Soft to palpation, nontender, no guarding, not rigid and No hepatosplenomegaly present Percussion: Yes normal to percussion Auscultation: normal bowel sounds Rectal Exam - Female: deferred General: Yes bladder normal to palpation External Female Exam: No lesion Speculum Exam - Vagina: normal appearance of the vagina, normal palpation, normal vaginal discharge and not erythematous Speculum Exam - Cervix: normal appearance of the cervix and normal palpation Bimanual exam- vagina & uterus: normal bimanual exam, normal palpation, uterine size normal, bladder normal to palpation, consistency normal and normal palpation Bimanual Exam- Adnexa, other: normal adnexae, no masses and no tenderness Assessment & Plan Assessment & Plan (1) Well woman exam: Code(s): Z01.419 - Encounter for gynecological examination (general) (routine) without abnormal findings Category: Medical Plan: Co testing not indicated this year. Counseled the patient about the recommended dietary allowance of 1200 mg of Calcium & 600 IU of vitamin D. Instructions given to patient to schedule next screening Mammogram in 04/06. The patient is scheduled for next screening colonoscopy in October of 2023 . The patient was instructed to perform monthly self-breast exams and schedule annual exam in a year. All questions answered and the patient verbalized understanding. Orders: Referrals Gastroenterology Referral Z12.11 - Encounter for screening for malignant neoplasm of colon Coding Level of Care Code Est Pt Prev Care 40-64y(99929) Diagnoses Well woman exam Z01.419
[2023-08-27 14:01] VITALS: BP 122/74; BMI 25.8
== END 2023-08-27 14:24 | disposition home or self-care (01) ==
PROVIDERS: PCP Internal Medicine; Referring Provider Internal Medicine; Visit Provider Obstetrics & Gynecology
DX: Z01.419 Encounter for gynecological examination (general) (routine) without abnormal findings (principal)
CPT/HCPCS: 99396

== ENCOUNTER → 2023-08-27 13:57 | Outpatient (BNVA) | payer MEDICAID, SELFPAY | PROVIDERS: PCP Internal Medicine; Visit Provider Obstetrics & Gynecology | DX: Z01.419 Encounter for gynecological examination (general) (routine) without abnormal findings (principal) | CPT/HCPCS: 99396 ==

== ENCOUNTER 2023-12-30 12:13 | Outpatient (REF) | payer MEDICAID, SELFPAY ==
--- NOTE | ~2023-12-30 | CT_ITS ---
EXAMINATION: CT CHEST WITHOUT CONTRAST CLINICAL INFORMATION: Other nonspecific abnormal finding of the lung. Pulmonary nodules. COMPARISON: CT angiogram chest dated February 07, 2022 TECHNIQUE: Multidetector volumetric CT imaging of the chest was done. Axial MIP volume rendering provided. Sagittal and coronal reformatted images were obtained. This CT examination was performed using dose optimization techniques as appropriate, variously including the following: *Automated exposure control *Adjustment of mA and/or kV according to patient size (this includes techniques or standardized protocols for targeted exams where dose is matched to indication/reason for exam; i.e. extremities or head) *Use of iterative reconstruction technique DLP: 105 mGy-cm FINDINGS: Submitted for interpretation on March 12, 2024. LUNGS: There is a 35mm noncalcified pulmonary nodule in the periphery of the right middle lobe. There are multifocal, patchy, less than 2 cm pulmonary groundglass in the periphery of the lower lobes, left upper lobe/lingula. No bronchiectasis. No honeycombing. Bilateral apical lung scarring. No pleural effusion. No pneumothorax. Respiratory airways patent. No lymphadenopathy, mediastinum or axillary. No aneurysm, thoracic aorta. Calcified plaques in the thoracic aortic arch and the coronary arteries. No pericardial effusion. 1.5 cm hypodensity in the dome of the left hepatic lobe. Multilevel thoracic spondylosis without acute fracture or listhesis. No lytic or blastic lesions. CT/CT chest wo IV con IMPRESSION: Nonspecific, subcentimeter, noncalcified pulmonary nodules. Slightly smaller since prior examination. Continuous follow-up. Focal hypodensity, left hepatic lobe. Fleischner guidelines were followed. Electronically signed by: Noé Hernández MD 03/12/2024 10:45 AM SHERYL
== END 2023-12-30 12:14 | disposition home or self-care (01) ==
LOC: HO.CT 12:13
PROVIDERS: PCP Internal Medicine; Visit Provider Internal Medicine Pulmonary Disease
DX: R91.8 Other nonspecific abnormal finding of lung field (principal)
CPT/HCPCS: 71250

== ENCOUNTER → 2023-12-30 12:20 | Outpatient (BNV) | payer MEDICAID, SELFPAY | PROVIDERS: PCP Internal Medicine; Visit Provider Radiology Diagnostic Radiology | DX: R91.8 Other nonspecific abnormal finding of lung field (principal) | CPT/HCPCS: 71250 ==

== ENCOUNTER 2024-01-06 10:23 | Outpatient (REF) | payer MEDICAID, SELFPAY ==
--- NOTE | ~2024-01-06 | XR_ITS ---
EXAMINATION: XR WRIST, RIGHT XR WRIST, LEFT XR HAND, RIGHT XR HAND, LEFT CLINICAL INFORMATION: Bilateral hand and wrist pain. COMPARISON: Bilateral hand and wrist radiographs dated 06/26/2021. TECHNIQUE: PA, lateral, and oblique views of the right and left wrist. AP, oblique, and lateral views of the right and left hand. FINDINGS: Right wrist: No acute fracture or dislocation. Mild radial carpal joint space narrowing with tiny marginal osteophytes, unchanged. No osseous erosion. No abnormal soft tissue calcification. Left wrist: No acute fracture or dislocation. Mild radiocarpal joint space narrowing with tiny marginal osteophytes, unchanged. No osseous erosion. No abnormal soft tissue calcification. Right hand: Severe first carpometacarpal joint space narrowing with bony remodeling and marginal osteophytes, progressed when compared to the prior examination. More moderate triscaphe osteoarthritis, also progressed. Additional joint space narrowing with small marginal osteophytes throughout the interphalangeal joints, slightly progressed. No new osseous erosion. No fracture or dislocation. No abnormal soft tissue calcification. Left hand: Moderate first carpometacarpal joint space narrowing with marginal osteophytes, progressed when compared to the prior examination. More mild triscaphe osteoarthritis. Additional joint space narrowing with marginal osteophytes throughout the interphalangeal joints, progressed when compared to the prior examination. Central erosions at the third distal interphalangeal joint which are new/increased. No acute fracture or dislocation. No abnormal soft tissue calcification. XR/XR wrist LT min 3V IMPRESSION: RIGHT WRIST: Mild degenerative arthritis, unchanged. No new osseous erosion. LEFT WRIST: Mild degenerative arthritis, unchanged. No new osseous erosion. RIGHT HAND: Severe first carpometacarpal degenerative arthritis with bony remodeling, progressed when compared to the prior examination. More moderate triscaphe osteoarthritis, progressed. Additional degenerative arthritis throughout the interphalangeal joints, slightly progressed. LEFT HAND: Moderate first carpometacarpal degenerative arthritis, progressed when compared to the prior examination. Additional degenerative arthritis throughout the interphalangeal joints, progressed. Central erosions at the third distal interphalangeal joint, which are new/increased. Electronically signed by: Sameer Veloz MD 01/06/2024 01:12 PM EDT
== END 2024-01-06 10:24 | disposition home or self-care (01) ==
LOC: HO.HHCX 10:23
PROVIDERS: Visit Provider Internal Medicine
DX: M19.041 Primary osteoarthritis, right hand (principal); M19.042 Primary osteoarthritis, left hand; M25.531 Pain in right wrist; M25.532 Pain in left wrist
CPT/HCPCS: 36415; 73110; 73130; 85025

== ENCOUNTER 2024-01-06 10:59 | Outpatient (REF) | payer MEDICAID, SELFPAY ==
[2024-01-06 13:18] LABS: MANUAL DIFF FLAG NO
[2024-01-06 13:24] LABS: Basophils Percent Auto 0.9 % (0-2); Eosinophils Absolute Auto 0.1 X10*3/uL (0.0-0.4); Eosinophils Percent Auto 1.8 % (0-4); Hematocrit 38.2 % (37.0-47.0); Hemoglobin 12.8 g/dl (12.0-16.0); Imm Gran Abs Auto 0.01 X10*3/uL (0.00-0.03); Imm Gran Pct Auto 0.3 % (0.0-0.4); Lymphocytes Absolute Auto 1.4 X10*3/uL (1.2-4.9); Lymphocytes Percent Auto 40.4 % (20-40); Mean Corpuscular HGB Conc 33.5 g/dl (31.0-35.0); Mean Corpuscular Hemoglobin 30.2 pg (27.0-33.0); Mean Corpuscular Volume 90.1 fL (80.0-98.0); Mean Platelet Volume 11.2 fL (9.4-12.3); Monocytes Absolute Auto 0.3 X10*3/uL (0.1-1.2); Monocytes Percent Auto 9.1 % (2-11); Neutrophils Absolute Auto 1.6 x10*3/uL (2.0-8.3); Neutrophils Percent Auto 47.5 % (45-73); Platelet Count 234 X10*3/uL (160-400); Red Blood Count 4.24 X10*6/uL (4.20-5.50); Red Cell Distribution Width 12.3 % (11.0-16.0); White Blood Count 3.4 X10*3/uL (4.8-10.8)
== END 2024-01-06 11:00 | disposition home or self-care (01) ==
LOC: HO.HHCL 10:59
PROVIDERS: Visit Provider Internal Medicine
DX: D72.819 Decreased white blood cell count, unspecified (principal)
CPT/HCPCS: 36415; 85025

== ENCOUNTER 2024-02-04 14:32 | Outpatient (AMB) | payer MEDICAID, SELFPAY ==
[2024-02-04 14:36] VITALS: BP 125/59; PULSE 65; BMI 26.8
--- NOTE | 2024-02-04 14:36 | A.OFFVIS_ITS ---
Vital Signs 02/04/24 14:36 Height 5 ft 1 in Weight 142 lb BMI 26.8 BP 125/59 L Blood Pressure Location Lt brachial Position Sitting Pulse 65 Intake Visit Reasons: rt great ingrown nail, discuss excision Intake Note: This patient presents for ingrown nail left foot, discuss excision. Pt c/o; reports discomfort/pain. Purification Operator Required: Yes Purification Operator Language: Domain Architect Services: Purification Operator Present Purification Operator Name: Rod Information Interpreted: non-clinical & clinical Accompanied by: Self / Same As Patient Allergies cholestyramine Allergy (Intermediate, Verified 02/04/24 14:38) itching Medication List - Last Reconciled 02/04/24 by Mack Cardoza MD albuterol sulfate 90 mcg/actuation (Ventolin HFA) 2 puffs inhalation Q4-6H PRN bisacodyl (Dulcolax (bisacodyl)) 10 mg (2 x 5 mg) PO BEDTIME 2 days calcium carbonate-vitamin D3 600 mg-12.5 mcg (500 unit) (Calcium 600 with Vitamin D3) 1 cap PO DAILY clonazepam 0.5 mg PO BEDTIME dexlansoprazole (Dexilant) 60 mg PO DAILY 30 days dicyclomine 20 mg PO QID 30 days eluxadoline (Viberzi) 100 mg PO BID fluticasone propionate 50 mcg/actuation (Allergy Relief (fluticasone)) 1 spray intranasal DAILY levothyroxine 88 mcg PO DAILY loperamide 2 mg PO Q6H PRN loratadine (Allergy Relief (loratadine)) 10 mg PO DAILY meclizine 25 mg PO DAILY PRN naproxen 500 mg PO BID PRN oxybutynin chloride ER 15 mg PO DAILY peg 3350-electrolytes 236-22.74-6.74 -5.86 gram (Golytely) 240 mL PO Q10M 1 day propranolol 20 mg PO BID simethicone (Gas Relief (simethicone)) 180 mg PO QID sumatriptan succinate 50 mg PO umeclidinium 62.5 mcg/actuation (Incruse Ellipta) 1 inh inhalation DAILY 30 days HPI HPI rt great ingrown nail, discuss excision: Details: [age] year old female here for an ingrown toenail. She says that she has had an ingrown toenail on her right big toe for many years now. She says that this has been causing her significant comfort and occasional swelling. She says she has difficulty walking now and she wants this toenail removed. She says she had a similar problem on the left big toe and this had been removed in the past as well. [facility] Medical History (Updated 02/04/24 @ 16:18 by Mack Cardoza MD) 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 GERD (gastroesophageal reflux disease) Anxiety Depression Fibromyalgia Surgical History Hx of elbow surgery History of colonoscopy History of bilateral tubal ligation History of cholecystectomy Family History Family/Other Cancer Social History Household Members: None Housing: Apartment Alcohol intake: current Alcohol intake frequency: does not drink Patient Tobacco Use Status: Never used Tobacco Advance Directives Date on File: 01/19/20 Current occupational status: disabled Sexual orientation: Straight/Heterosexual Gender identity: Female Female Reproductive History Menstrual Age of Menarche: 7 Review of Systems Const Denies chills and Denies fever(s) Card Denies chest pain, Denies dyspnea and Denies dyspnea on exertion Resp Denies cough, Denies dyspnea and Denies dyspnea on exertion GI Denies hematochezia and Denies change in bowel habits Denies hematuria Musc Denies back pain and Denies limited range of motion Neuro Denies focal weakness and Denies convulsions Psych Denies depression and Denies mood swings Physical Exam Vital Signs: Last Vital Signs Pulse 65 02/04/24 14:36 BP 125/59 L 02/04/24 14:36 BMI result Body Mass Index 26.8 Const General: comfortable and no acute distress Orientation/consciousness: patient oriented x3 Neck Neck: Yes no lymphadenopathy Resp Auscultation: clear to auscultation bilaterally Cardio Rhythm: regular rhythm GI Palpation (GI): Soft to palpation, nontender and no guarding Neuro General: patient oriented x3 Extrem Other: Ingrowth of the toenail on both sides, big toe right, no acute inflammation, no fluctuance, no induration at this time Assessment & Plan Assessment & Plan (1) Ingrown toenail: Code(s): L60.0 - Ingrowing nail Category: Medical Plan: She has significant ingrowth of the toenail on the right big toe. She wants this removed. I explained the technique of removal of the big toenail under local anesthesia. I reviewed the risks including but not limited to bleeding, infections, as well as postop pain. She wants to proceed. I reviewed with her what to expect after the procedure. This will be done in the office on her next visit. Coding Level of Care Code New Pt Level 3 (69257) Diagnoses Ingrown toenail L60.0
== END 2024-02-04 16:20 | disposition home or self-care (01) ==
PROVIDERS: PCP Internal Medicine; Visit Provider Surgery
DX: L60.0 Ingrowing nail (principal)
CPT/HCPCS: 99203

== ENCOUNTER → 2024-02-04 14:32 | Outpatient (BNVA) | payer MEDICAID, SELFPAY | PROVIDERS: PCP Internal Medicine; Visit Provider Surgery | DX: L60.0 Ingrowing nail (principal) | CPT/HCPCS: 99202 ==

== ENCOUNTER 2024-02-19 11:17 | Outpatient (AMB) | payer MEDICAID, SELFPAY ==
--- NOTE | 2024-02-19 11:24 | A.OFFVIS_ITS ---
Vital Signs 02/19/24 11:25 Height 5 ft 1 in Weight 142 lb BMI 26.8 Intake Visit Reasons: removal of toenail, big toe left Intake Note: Office procedure: removal of toenail, big toe left. Calender Let Off Operator Required: Yes Calender Let Off Operator Language: Merchandising Consultant Services: Calender Let Off Operator Present Calender Let Off Operator Name: KbERIKATutu Information Interpreted: non-clinical & clinical Accompanied by: Self / Same As Patient Allergies cholestyramine Allergy (Intermediate, Verified 02/19/24 11:25) itching HPI HPI removal of toenail, big toe left: Details: She is here for removal of the big toenail on the left. [facility] Medical History 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 GERD (gastroesophageal reflux disease) Anxiety Depression Fibromyalgia Surgical History Hx of elbow surgery History of colonoscopy History of bilateral tubal ligation History of cholecystectomy Family History Family/Other Cancer Social History Household Members: None Housing: Apartment Alcohol intake: current Alcohol intake frequency: does not drink Patient Tobacco Use Status: Never used Tobacco Advance Directives Date on File: 01/19/20 Current occupational status: disabled Sexual orientation: Straight/Heterosexual Gender identity: Female Female Reproductive History Menstrual Age of Menarche: 7 Physical Exam Vital Signs: BMI result Body Mass Index 26.8 Office Procedures Office Procedure Office Procedure Documentation Office Procedure Documentation: Preop diagnosis: Ingrown toenail, left big toe Postop diagnosis: The same Procedure: Ungiectomy, left big toe nail The patient was placed in reclining position. The left foot was prepped and draped in the usual sterile fashion. Digital block was done on the left big toe. I then proceeded to gently and bluntly loosen the entire toenail of the left big toe from the nail bed. This was then pulled out without difficulty I then cleaned the area with Betadine again and wrapped the entire big toe with thick dressings and a Sheeba roll She tolerated procedure well. There was minimal blood loss. I explained to her good wound care. I will see him in the office in about 2 weeks for a postop visit. Assessment & Plan Assessment & Plan (1) Ingrown toenail: Code(s): L60.0 - Ingrowing nail Category: Medical Plan: Removal of the entire big toenail was done under local anesthesia with digital block. She was given wound care instructions. She can take Tylenol and ibuprofen p.r.n. for pain Coding Level of Care Code Procedure Only Diagnoses Ingrown toenail L60.0
[2024-02-19 11:25] VITALS: BMI 26.8
== END 2024-02-19 11:55 | disposition home or self-care (01) ==
LOC: HO.HGS 11:18
PROVIDERS: PCP Internal Medicine; Visit Provider Surgery
DX: L60.0 Ingrowing nail (principal)
CPT/HCPCS: 11730

== ENCOUNTER 2024-02-25 08:46 | Outpatient (REF) | payer MEDICAID, SELFPAY ==
--- NOTE | 2024-02-25 08:49 | EMG_ITS ---
Chief complaint: Left thumb pain, denies numbness Reason for referral: Evaluate for Carpal Tunnel Syndrome Referred by: Dr. Anthony Muller Procedure done: Left upper extremity NCS/EMG Precautions and/or limitations: None Seen with color blender. The limb temperature was monitored continuously and remained between 32-36 degrees C during the performance of the NCS. Nerve Conduction Studies Anti Sensory Summary Table ?Stim Site NR Onset (ms) Norm Onset (ms) Peak (ms) Norm Peak (ms) O-P Amp (?V) Norm O-P Amp Site1 Site2 Delta-0 (ms) Dist (cm) Pillo (m/s) Norm Pillo (m/s) Left Median Anti Sensory (2nd Digit) Wrist ? 2.3 3.3 <3.6 23.8 >10 Wrist 2nd Digit 2.3 14.0 61 Left Radial Anti Sensory (Thumb) Forearm ? 1.4 2.1 <3.1 40.3 Forearm Thumb 1.4 0.0 Left Ulnar Anti Sensory (5th Digit) Wrist ? 2.3 3.0 <3.7 15.5 >15.0 Wrist 5th Digit 2.3 14.0 61 Motor Summary Table ?Stim Site NR Onset (ms) Norm Onset (ms) O-P Amp (mV) Norm O-P Amp iAmp (mV) Amp (1st) (%) Site1 Site2 Delta-0 (ms) Dist (cm) Pillo (m/s) Norm Pillo (m/s) Left Median Motor (Abd Poll Brev) Wrist ? 2.8 <3.9 11.6 >4.5 13.6 100.0 Elbow Wrist 3.5 17.0 49 >45 Elbow ? 6.3 11.2 13.4 96.6 Left Ulnar Motor (Abd Dig Minimi) Wrist ? 2.7 <3.0 8.2 >5 10.5 100.0 B Elbow Wrist 2.8 15.0 54 >45 B Elbow ? 5.5 7.5 10.0 91.5 A Elbow B Elbow 1.4 10.0 71 >45 A Elbow ? 6.9 6.8 9.2 82.9 EMG ?Side Muscle Nerve Root Ins Act Fibs Psw Amp Dur Poly Recrt Int Pat Comment Left 1stDorInt Ulnar C8-T1 Nml Nml Nml Nml Nml 0 Nml Complete Left FlexCarRad Median C6-7 Nml Nml Nml Nml Nml 0 Nml Complete Left Biceps Musculocut C5-6 Nml Nml Nml Nml Nml 0 Nml Complete Left Triceps Radial C6-7-8 Nml Nml Nml Nml Nml 0 Nml Complete Left Deltoid Axillary C5-6 Nml Nml Nml Nml Nml 0 Nml Complete FINDINGS: All motor and sensory nerves tested showed normal latencies, amplitudes and conduction velocities. Concentric needle EMG was performed in selected muscles of the left upper extremity. Study did not reveal signs of electric abnormalities as shown in the table above. IMPRESSION: 1. This is a normal study. 2. There is no electrodiagnostic evidence for median neuropathy, ulnar neuropathy, brachial plexopathy, or cervical radiculopathy. Thank you for your kind referral. Jolanta Diaz MD, RAY Board Certified, [place] [employer] and Rehabilitation (ABPMR) Board Certified, [place] Board of Electrodiagnostic Medicine (ABEM) CODIN [id number] MTDD
== END 2024-02-25 08:47 | disposition home or self-care (01) ==
LOC: HO.NEURO 08:46
PROVIDERS: PCP Internal Medicine; Visit Provider Internal Medicine
DX: M79.645 Pain in left finger(s) (principal); G89.29 Other chronic pain
CPT/HCPCS: 95886; 95909

== ENCOUNTER → 2024-02-25 08:49 | Outpatient (BNV) | payer MEDICAID, SELFPAY | PROVIDERS: PCP Internal Medicine; Visit Provider Physical Medicine & Rehabilitation | DX: M79.645 Pain in left finger(s) (principal) | CPT/HCPCS: 95886; 95909 ==

== ENCOUNTER 2024-03-09 06:39 | Day surgery (SDC) | payer MEDICAID, SELFPAY ==
[2024-03-04 15:56] VITALS: BMI 26.8
--- OUTSIDE RECORDS SUMMARY | 2024-03-09 06:41 | XMS_ITS | Continuity of Care Document ---
Author Organization [facility] ter Address [address] [place] [id number]- Care Team Providers Care Oracle Ebs Consultant Name Role Phone Felicity CALDERON, Anthony Murphy Primary Care Physi fady Encounter 09/22/23 - 09/23/[address] [address]- Attending Physician: Not on Staff, Attending MD Referring Physician: Not on Staff, Referring MD Allergies, Adverse Reactions, Alerts No Known Allergies Medications amitriptyline 10 mg oral tablet 1 tablet = 10 mg, By Mouth, 3 times a day, # 270 tablet, 0 Refills, Maintenance, Tablet Start Date: 06/02/12 Status: Ordered Dexilant 60 mg oral delayed release capsule 1 capsule = 60 mg, By Mouth, Daily, # 30 capsule, 0 Refills, Maintenance, 09/27/15 13:31:53, EC Capsule Start Date: 09/27/15 Status: Ordered dicyclomine 20 mg oral tablet 1 tablet = 20 mg, By Mouth, 4 times a day, # 40 tablet, 0 Refills, Maintenance, 09/27/15 13:31:28, Tablet Start Date: 09/27/15 Stop Date: 10/07/15 Status: Ordered Flonase Daily, 0 Refills, Maintenance Start Date: 11/22/11 Status: Ordered gas relief gas relief, Refills 0, Maintenance, 09/27/15 13:33:05, Compound Start Date: 09/27/15 Status: Ordered KLONopin Tablet By Mouth, 3 times a day, 0 Refills, Maintenance Start Date: 11/22/11 Status: Ordered levothyroxine 0.1 mg oral tablet 1 tablet = 100 mcg, By Mouth, Daily, # 90 tablet, 3 Refills, Maintenance, 05/21/18 11:45:59 EST, Tablet Start Date: 05/21/18 Status: Ordered levothyroxine 0.1 mg oral tablet See Instructions, 1 tablet By Mouth Daily Friday-Friday, nothing on Friday, # 30 tablet, 5 Refills, Maintenance, 06/19/16 12:33:00, Tablet Start Date: 06/19/16 Status: Ordered levothyroxine 0.1 mg oral tablet See Instructions, 1 tablet By Mouth Daily Friday-Friday, nothing on Friday, # 30 tablet, 5 Refills, Maintenance, 11/02/15 13:37:00, Tablet Start Date: 11/02/15 Status: Ordered levothyroxine 0.1 mg oral tablet See Instructions, 1 tablet By Mouth Daily Friday-Friday, nothing on Friday, # 30 tablet, 0 Refills, Maintenance, 04/06/18 12:43:20 EST, Tablet Start Date: 04/06/18 Status: Ordered loperamide 2 mg oral tablet 1 tablet = 2 mg, By Mouth, Every 4 hours, PRN as needed for loose stool, not to exceed 16 mg/day, #24 tablet, 0 Refills, Maintenance, 09/27/15 13:32:10, Tablet Start Date: 09/27/15 Status: Ordered Loratadine By Mouth, Refills 0, Maintenance, 09/27/15 13:32:33 Start Date: 09/27/15 Status: Ordered meclizine 25 mg oral tablet 1 tablet = 25 mg, By Mouth, 2 times a day, # 60 tablet, 0 Refills, Maintenance, 09/27/15 13:31:40, Tablet Start Date: 09/27/15 Status: Ordered Naprosyn 500 mg oral tablet 1 tablet = 500 mg, By Mouth, 2 times a day, # 180 tablet, 0 Refills, Maintenance, Tablet Start Date: 11/22/11 Status: Ordered oxybutynin extended release Start Date: 09/27/15 Status: Ordered propranolol 20 mg oral tablet 20 mg, 1, tablet, By Mouth, 2 times a day, # 180 tablet, Refills 0, Maintenance, 09/27/15 13:32:58 Start Date: 09/27/15 Status: Ordered traMADol 50 mg oral tablet 1 tablet = 50 mg, By Mouth, Every 4 hours, 0 Refills, Maintenance, 01/01/17 15:00:08 Start Date: 01/01/17 Status: Ordered VESIcare By Mouth, Daily, 0 Refills, Maintenance Start Date: 11/22/11 Status: Ordered Results Radiology Reports * Exam Date Time Procedure Performing Provider Status 09/22/23 1:50 PM MRI Brain W+W/O Contrast Auth (Verified) Notes: (MRI Brain W+W/O Contrast) Reason For Exam: Reason For Exam: R42 - Dizziness and giddiness, , MRI, BRAIN + INTERNAL AUDITORY CANAL, W/WO CONTRAST\.br\UNMAPPED LAB (MRI,;Reason For Exam: R42 - Dizziness and giddiness, , MRI, BRAIN + INTERNAL AUDITORY CANAL, W/WO CONTRAST\.br\UNMAPPED LAB (MRI, RESULT: MRI Brain W+W/O Contrast [facility] VISIT NUMBER :[id number] Patient Name: Iliana Diaz Date of : 1965 Date of Exam: 09-22-2023 Referring Physician: Nadia [facility] [address], [address] [place] [address] Exam: MR Brain (C-/C+) CPT 13692 Room Description: [facility] 3.0T MR Brain (C-/C+) CPT 07844 INDICATION / CLINICAL QUESTION: Reason For Exam: R42 - Dizziness and giddiness, , MRI, BRAIN + INTERNAL AUDITORY CANAL, W/WO CONTRAST\E E\UNMAPPED LAB (MRI, BRAIN + INTERNAL AUDITORY CANAL, W/WO CONTRAST)Clinical Indication: Asymmetric sensorineural hearing loss Reason For Exam: R42 - Dizziness and giddiness, , MRI, BRAIN + INTERNAL AUDITORY CANAL, W/WO CONTRAST\E E\UNMAPPED LAB (MRI, BRAIN + INTERNAL AUDITORY CANAL, W/WO CONTRAST)Clinical Indication: Asymmetric sensorineural hearing loss TECHNIQUE: MRI of the brain with attention to the internal auditory canals was performed with and without contrast utilizing sagittal T1, axial T2, axial CISS, axial and coronal T1, and post-contrast axial and coronal T1-weighted sequences. 12 mL Dotarem intravenous contrast was administered. COMPARISON: None. FINDINGS: IAC: There is no mass or abnormal enhancement in the internal auditory canals or cerebellopontine angles. Course and caliber of the 7th and 8th cranial nerves is normal bilaterally. Fluid signal is preserved in the inner ear structures bilaterally. Brainstem demonstrates normal signal. BRAIN and EXTRA-AXIAL SPACES: No significant abnormality of the visualized portions of the brain and extra-axial spaces. EXTRACRANIAL SOFT TISSUES: Visualized portions of the extracranial soft tissues are unremarkable. BONES: Visualized marrow signal is preserved. IMPRESSION: No retrocochlear abnormality to explain the patient?s symptoms. Electronically Signed By: Arianne Stone MD Dictated By: Not on Staff , ANTONIO CALDERON Dictated Date/Time: 09/23/23 12:32 p Reviewed By: Not on Staff , ANTONIO CALDERON Signed By: Not on Staff , ANTONIO CALDERON Signed Date/Time: 09/23/23 12:32 pm Transcribed By: TS Transcribed Date/Time: 09/23/23 12:32 pm Patient Care team information Care Team Personnel Name: Felicity CALDERON, Anthony Murphy Position: S Outreach Member Role: PCP Address: Address: [address] [place] [id number]- Care Team Related Persons Name: BELKIS CLARKE Address: home [address], [place] Name: JARVIS CUETO Address: [place] [address]
[2024-03-09 07:00] VITALS: BP 131/52; PULSE 68; RESP 18; TEMP 36.3; O2SAT 98; BMI 27.2
[2024-03-09] MEDS: Lactated Ringers 1,000 ML 50 ML IVCONT (07:17)
--- NOTE | 2024-03-09 07:43 | P.CONAN_ITS ---
HPI - Anesthesia Eval Consult details Narrative: colon screen [facility] Active Problems Active Problems: All Active Problems Ingrown toenail (Acute) Pre-op examination (Acute) Lumbar degenerative disc disease (Acute) Osteoarthritis of hands, bilateral (Acute) Cough (Acute) Back pain (Acute) Generalized abdominal pain (Acute) Dyspnea on exertion (Acute) Preop pulmonary/respiratory exam (Acute) Pulmonary nodules (Acute) Bronchiectasis (Acute) Cubital tunnel syndrome on right (Acute) CMC arthritis (Acute) Rotator cuff injury (Acute) Fibromyalgia (Acute) Well woman exam (Acute) Irritable bowel syndrome with diarrhea (Acute) GERD (gastroesophageal reflux disease) (Acute) Past Medical History Medical History 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 GERD (gastroesophageal reflux disease) Anxiety Depression Fibromyalgia Family History Family History Family/Other Cancer Family history of problems with anesthesia: No Surgical History Surgical History Hx of surgical procedure (~02/19/24) Hx of elbow surgery History of colonoscopy History of bilateral tubal ligation History of cholecystectomy History of Problems with Anesthesia: No Social History Social History Household Members: None Housing: Apartment Alcohol intake: current Alcohol intake frequency: does not drink Patient Tobacco Use Status: Never used Tobacco Have you been hit, kicked, punched, or otherwise hurt by someone within the past year? If so, by whom?: No Are you DNR?: No Advance Directives: No Advance Directives Information Provided: Yes Advance Directives Date on File: 01/19/20 Current occupational status: disabled Sexual orientation: Straight/Heterosexual Gender identity: Female Meds Allergies Allergy/AdvReac Type Severity Reaction Status Date / Time cholestyramine Allergy Intermediate itching Verified 02/19/24 11:25 Active Medications: Current Medications Lactated Ringer's (Lr) 1,000 mls @ 50 mls/hr IVCONT .Q20H LEYLA Last Admin: 03/09/24 07:17 Dose: 50 mls/hr Home Medications ?Medication ?Instructions ?Recorded ?Confirmed ?Last Taken ?Type clonazepam 0.5 mg tablet 0.5 mg PO BEDTIME 06/26/21 02/04/24 Unknown History fluticasone propionate 50 1 spray intranasal DAILY 06/26/21 02/04/24 Unknown History mcg/actuation nasal spray,suspension (Allergy Relief (fluticasone)) loratadine 10 mg tablet (Allergy 10 mg PO DAILY 06/26/21 02/04/24 Unknown History Relief (loratadine)) propranolol 20 mg tablet 20 mg PO BID 06/26/21 02/04/24 12/27/21 History sumatriptan succinate 50 mg tablet 50 mg PO 09/21/21 02/04/24 Unknown History oxybutynin chloride 15 mg 15 mg PO DAILY 03/27/22 02/04/24 Unknown History tablet,extended release 24 hr levothyroxine 75 mcg tablet 88 mcg PO DAILY 07/02/23 02/04/24 Unknown History Exam Height,Weight and Vital Signs: Height 5 ft 1 in Weight 65.23 kg Last Vital Signs Temp 97.4 F 03/09/24 07:00 Pulse 68 03/09/24 07:00 Resp 18 03/09/24 07:00 BP 131/52 L 03/09/24 07:00 Pulse Ox 98 03/09/24 07:00 O2 Del Method Room Air 03/09/24 07:00 Airway Mallampati Class: II TM Dist: >3cm Neck ROM: Full Heart: rrr Lungs: cta Assessment and Plan Assessment Anesthesia Assessment: Anesthesia Plan Discussed Final Anesthetic Review Family History of Problems with Anesthesia: No History of Problems with Anesthesia: No NPO: Yes ASA Class: III Final Preanesthetic Review: No Changes in Pt Med Stat, Meds/Allgs Chart Reviewed, Consent Obtained/Reviewed and Anes Risks/Benef Reviewed Patient Risk: Intermediate Procedure Risk: Low Anesthetic Plan Anesthetic Plan: MAC: Disposition: Standard PACU
--- NOTE | 2024-03-09 07:54 | MHC.SHP ---
Pre-Procedural Eval Section A - 24 Hr Update-Section A only Date of Service: 03/09/24 Section B - Complete if H&P > 30 days Chief Complaint: Encounter for screening for malignant neoplasm of Details of Present Illness: HPV in female GERD (gastroesophageal reflux disease) Anxiety Depression Fibromyalgia Surgical History Hx of elbow surgery History of colonoscopy History of bilateral tubal ligation History of cholecystectomy Present Medications: see Short Stay Collaborative assessment Allergies: Allergies Allergy/AdvReac Type Severity Reaction Status Date / Time cholestyramine Allergy Intermediate itching Verified 02/19/24 11:25 Review of Systems Review of Systems Comment: Ten point ROS negative Exam Exam Comment: Gen appear: No acute distress HEENT: no icterus Chest: No overt resp distress Abd: soft, nontender, nondistended Psych: Stable affect, answering questions appropriately Neuro: A/Ox3 noted to move all extremities spontaneously Ext: no peripheral edema Plan Diagnosis/Plan: Unchanged I have reviewed the history and physical and performed a pertinent physical examination on my patient. No changes have occurred unless specified. Time Spent With Patient Time: Total time managing care of this patient today ____ minutes.
[2024-03-09 09:08] VITALS: BP 123/61; PULSE 74; RESP 16; TEMP 36.1; O2SAT 99
--- NOTE | 2024-03-09 09:14 | P.OPN-COLO_ITS ---
Colonoscopy Operative Note Operative Note Date of Service: 03/09/24 Narrative: Procedure: Colonoscopy Indication: Screening Endoscopist: Nargis Kaba MD Anesthesia Provider: Rama Savage CRNA Anesthesia type: MAC Instrument: Olympus [id number]-[id number] Consent: Indication, risks vs benefits, and alternatives were discussed with the patient who gave written informed consent to proceed. An american sign language interpreter was utilized to assist with the consent. Monitoring: EKG, pulse, pulse oximetry and blood pressure were monitored throughout the procedure. Please see anesthesia flowsheet. Procedure: The patient was brought to the procedure room and placed in the left lateral decubitus position. IV medications were administered by the anesthesia provider in attendance. A digital rectal exam was performed which was normal. A distal attachment cap was affixed to the tip of the colonoscope which was then inserted through the anus and advanced through the colon to the cecum at 75 cm,and terminal ileum. Appendiceal orifice and ileocecal valve were identified. Mucosa was carefully examined under high definition white light as the instrument was slowly withdrawn in a retrograde panoramic fashion. Retroflexion was performed in rectum. The procedure was not difficult. There were no immediate obvious complications. The quality of the prep was BBPS: 2+3+2 = adequate Withdrawal time 9 minutes. Limitations: No limitations. Findings: Mucosa: Normal to cecum and terminal ileum. Protruding lesions: * Medium internal hemorrhoids without stigmata of recent bleeding. Impression: 1. Normal colon and terminal ileum mucosa 2. Internal hemorrhoids Recommendations: - Repeat colonoscopy for asymptomatic colorectal cancer screening in 10 years.
[2024-03-09 09:23] VITALS: BP 124/69; PULSE 71; RESP 16; TEMP 36.4; O2SAT 100
== END 2024-03-09 09:48 | disposition home or self-care (01) ==
PROVIDERS: PCP Internal Medicine; Visit Provider Internal Medicine
PROC: 0DJD8ZZ Inspection of Lower Intestinal Tract, Via Natural or Artificial Opening Endoscopic (ICD-10-PCS; CPT 45378; principal; 2024-03-09 08:30)
DX: Z12.11 Encounter for screening for malignant neoplasm of colon (principal); K64.8 Other hemorrhoids; K58.0 Irritable bowel syndrome with diarrhea; M79.7 Fibromyalgia; R06.09 Other forms of dyspnea; Z79.899 Other long term (current) drug therapy
CPT/HCPCS: 45378; J2003; J2704

== ENCOUNTER → 2024-03-09 06:39 | Outpatient (BNV) | payer MEDICAID, SELFPAY | PROVIDERS: PCP Internal Medicine; Visit Provider Internal Medicine | DX: Z12.11 Encounter for screening for malignant neoplasm of colon (principal); K64.8 Other hemorrhoids | CPT/HCPCS: 45378 ==

== ENCOUNTER 2024-03-10 09:32 | Outpatient (AMB) | payer MEDICAID, SELFPAY ==
--- NOTE | 2024-03-10 09:34 | MHC.OFFVIS ---
Vital Signs 03/10/24 09:39 Height 5 ft 1 in Weight 143 lb 12.92 oz BMI 27.2 Intake Visit Reasons: s/p removal of toenail, big toe left Intake Note: This patient presents for post-op assessment status post excision removal of toenail left big toe. Pt c/o; reports she had yellowish discharge. Service Loss Control Consultant Required: Yes Service Loss Control Consultant Language: Supervisor [employer] Services: Service Loss Control Consultant Present Service Loss Control Consultant Name: Rod Information Interpreted: non-clinical & clinical Accompanied by: Self / Same As Patient Allergies cholestyramine Allergy (Intermediate, Verified 03/10/24 09:40) itching HPI HPI s/p removal of toenail, big toe left: Details: She had removal of the left big toenail under local anesthesia 2 weeks ago. She denies any complaints at this time and feels well overall. She denies any significant pain. [facility] Medical History 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 GERD (gastroesophageal reflux disease) Anxiety Depression Fibromyalgia Surgical History Hx of surgical procedure (~02/19/24) Hx of elbow surgery History of colonoscopy History of bilateral tubal ligation History of cholecystectomy Family History Family/Other Cancer Social History Household Members: None Housing: Apartment Alcohol intake: current Alcohol intake frequency: does not drink Patient Tobacco Use Status: Never used Tobacco Advance Directives Date on File: 01/19/20 Current occupational status: disabled Sexual orientation: Straight/Heterosexual Gender identity: Female Female Reproductive History Menstrual Age of Menarche: 7 Review of Systems Const Denies chills and Denies fever(s) Physical Exam Vital Signs: BMI result Body Mass Index 27.2 Const General: comfortable and no acute distress Resp Effort & Inspection: normal respiratory effort Extrem Other: Big toe on the left without any evidence of infection, toenail removed completely Assessment & Plan Assessment & Plan (1) Ingrown toenail: Code(s): L60.0 - Ingrowing nail Category: Medical Plan: Status post removal of big toenail. She is doing very well. The big toe is not infected. I advised her to avoid using closed toed shoes for now. She can follow up on a p.r.n. basis. Coding Level of Care Code Global (44166) Diagnoses Ingrown toenail L60.0
[2024-03-10 09:39] VITALS: BMI 27.2
== END 2024-03-10 09:43 | disposition home or self-care (01) ==
PROVIDERS: PCP Internal Medicine; Visit Provider Surgery
DX: L60.0 Ingrowing nail (principal)
CPT/HCPCS: 99212

== ENCOUNTER → 2024-03-10 09:32 | Outpatient (BNVA) | payer MEDICAID, SELFPAY | PROVIDERS: PCP Internal Medicine; Visit Provider Surgery | DX: Z48.817 Encounter for surgical aftercare following surgery on the skin and subcutaneous tissue (principal); Z98.890 Other specified postprocedural states | CPT/HCPCS: 99212 ==

== ENCOUNTER 2024-03-16 14:00 | Outpatient (REF) | payer MEDICAID, SELFPAY ==
--- NOTE | ~2024-03-16 | MM_ITS ---
EXAMINATION: MM SCREENING DIGITAL BREAST TOMOSYNTHESIS, BILATERAL CLINICAL INFORMATION: Screening. Asymptomatic. COMPARISON: Mammography: Comparison is made with available priors TECHNIQUE: Digital breast mammography with tomosynthesis is performed in both the craniocaudal and mediolateral oblique views along with computer-aided detection (CAD). FINDINGS: The breasts are heterogeneously dense, which may obscure small masses (ACR BI-RADS breast composition Category c). Left: Focal asymmetry upper outer breast. No suspicious calcifications or other abnormal findings. Right: Focal asymmetry upper outer breast posterior depth. No suspicious calcifications or other abnormal findings. MM/MM tomosynthesis screening BI IMPRESSION: Additional imaging is recommended Patient describes nipple itchiness and pain that comes and goes. Recommend clinical evaluation and if the symptoms are deemed clinically significant or if clinically indicated a diagnostic workup can be ordered and performed. ASSESSMENT: BI-RADS BI-RADS 0 - Incomplete: Needs additional Imaging. RECOMMENDATION: 1. Additional views of the bilateral breasts 2. Targeted ultrasound if warranted after review of the additional views. 3. Radiology department staff will contact the patient for additional imaging. Additional Imaging required This examination should not preclude the clinical evaluation of a suspicious palpable abnormality. This patient's information was entered into a reminder system with a target due date for their next mammogram. Electronically signed by: Priya Self DO 03/22/2024 05:47 PM SHERYL
== END 2024-03-16 14:01 | disposition home or self-care (01) ==
LOC: HO.MAMMO 14:00
PROVIDERS: PCP Internal Medicine; Visit Provider Internal Medicine
DX: Z12.31 Encounter for screening mammogram for malignant neoplasm of breast (principal)
CPT/HCPCS: 77063; 77067

== ENCOUNTER → 2024-03-16 14:30 | Outpatient (BNV) | payer MEDICAID, SELFPAY | PROVIDERS: PCP Internal Medicine; Visit Provider Internal Medicine | DX: Z12.31 Encounter for screening mammogram for malignant neoplasm of breast (principal) | CPT/HCPCS: 77063; 77067 ==

== ENCOUNTER 2024-03-17 08:34 | Outpatient (REF) | payer MEDICAID, SELFPAY ==
[2024-03-18 10:02] LABS: HPV 16,18/45 See PAP report
== END 2024-03-17 08:35 | disposition home or self-care (01) ==
LOC: HO.LNP 08:34
PROVIDERS: PCP Internal Medicine; Visit Provider Obstetrics & Gynecology
DX: N95.0 Postmenopausal bleeding (principal); N89.8 Other specified noninflammatory disorders of vagina
CPT/HCPCS: 87624; 88175; 99212

== ENCOUNTER 2024-03-17 08:48 | Outpatient (AMB) | payer MEDICAID, SELFPAY ==
--- NOTE | 2024-03-17 09:04 | MHC.OFFVIS ---
Vital Signs 03/17/24 09:11 Height 5 ft 1 in Weight 146 lb BMI 27.6 BP 110/68 Intake Visit Reasons: Bleeding after intercourse Cloth Folder Machine Required: Yes Cloth Folder Machine Language: Litigation Legal Secretary Services: Cloth Folder Machine Present (in person) Cloth Folder Machine Name: Linn CROW Information Interpreted: non-clinical & clinical Trolley Wire Installer: Trolley Wire Installer Present (Linn CROW) Accompanied by: Self / Same As Patient Allergies cholestyramine Allergy (Intermediate, Verified 03/17/24 09:12) itching Post menopausal: Yes HPI Comments Details: Presenting complaining of few episodes of spontaneous vaginal bleeding associated with postcoital bleeding, vulvovaginal discharge and itching Last mammogram done on 03/16/2024 report still pending Last co testing in 04/03 was negative PFSH Medical History 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 GERD (gastroesophageal reflux disease) Anxiety Depression Fibromyalgia Surgical History Hx of surgical procedure (~02/19/24) Hx of elbow surgery History of colonoscopy History of bilateral tubal ligation History of cholecystectomy Family History Family/Other Cancer Social History Household Members: None Housing: Apartment Alcohol intake: current Alcohol intake frequency: does not drink Patient Tobacco Use Status: Never used Tobacco Advance Directives Date on File: 01/19/20 Current occupational status: disabled Sexual orientation: Straight/Heterosexual Gender identity: Female Female Reproductive History Menstrual Age of Menarche: 7 Review of Systems Const All systems reviewed & are unremarkable except as noted in HPI and below Physical Exam Vital Signs: Last Vital Signs BP 110/68 03/17/24 09:11 BMI result Body Mass Index 27.6 General: Yes no CVA tenderness External Female Exam: normal external appearance and normal appearance of the urethra Speculum Exam - Vagina: normal appearance of the vagina, normal palpation, no lesions and no masses Speculum Exam - Cervix: normal appearance of the cervix, normal palpation, no lesions, no masses and nontender Bimanual exam- vagina & uterus: normal bimanual exam, normal palpation, uterine size normal, normal palpation, uterine shape normal, No Cervical tenderness present and non-tender Bimanual Exam- Adnexa, other: normal adnexae Back/Spine/Pelvis Back: no CVA tenderness Assessment & Plan Assessment & Plan (1) Postmenopausal bleeding: Comment: With postcoital bleeding Code(s): N95.0 - Postmenopausal bleeding Category: Medical Plan: Discussed with the patient the differential diagnosis of post menopausal bleeding/postcoital bleeding with normal pelvic exam including but not limited to, endometrial /endocervical infection or hyperplasia, cancer, polyps and other causes; GC/CT with co testing done, recommended ultrasound to measure the endometrial stripe; discussed with the patient that if the endometrial thickness is 4 mm or less the negative predictive value of endometrial pathology is 99%, otherwise If endometrial thickness is more than 4 mm will proceed with endometrial/endocervical sampling versus hysteroscopy D&C /ECC polypectomy depending on the ultrasound findings. Instructed the patient to schedule an ultrasound with a follow-up appointment in 2 weeks. All questions answered, the patient verbalized understanding and agreed with the plan. This note was generated with a voice recognition program. Some errors may have been overlooked during the review of this note. Sometimes these errors may affect the content or meaning of a given sentence. (2) Vaginal discharge: Code(s): N89.8 - Other specified noninflammatory disorders of vagina Category: Medical Plan: GC/CT with BV panel collected. Instructions given the patient to schedule a follow-up appointment within 2-3 weeks. All questions answered, the patient verbalized understanding Orders: Orders US pelvic and transvaginal Today N95.0 - Postmenopausal bleeding Coding Level of Care Code Est Pt Level 3 (98173) Diagnoses Postmenopausal bleeding N95.0 Vaginal discharge N89.8
[2024-03-17 09:11] VITALS: BP 110/68; BMI 27.6
== END 2024-03-17 09:24 | disposition home or self-care (01) ==
PROVIDERS: PCP Internal Medicine; Visit Provider Obstetrics & Gynecology
DX: N95.0 Postmenopausal bleeding (principal); N89.8 Other specified noninflammatory disorders of vagina
CPT/HCPCS: 99213

== ENCOUNTER 2024-03-17 09:55 | Outpatient (REF) | payer MEDICAID, SELFPAY ==
[2024-03-17 14:48] LABS: Bacterial Vaginosis PCR NEGATIVE (Negative); Candida Group PCR NOT DETECTED (Not Detect); Candida glab krusei PCR NOT DETECTED (Not Detect); Trichomonas vaginalis PCR NOT DETECTED (Not Detect)
[2024-03-17 15:12] LABS: CT PCR NOT DETECTED (Not Detect.); NG PCR NOT DETECTED (Not Detect.)
== END 2024-03-17 09:56 | disposition home or self-care (01) ==
LOC: HO.LAB 09:55
PROVIDERS: Visit Provider Obstetrics & Gynecology
DX: N95.0 Postmenopausal bleeding (principal)
CPT/HCPCS: 0352U; 87491; 87591

== ENCOUNTER 2024-03-29 13:17 | Outpatient (REF) | payer MEDICAID, SELFPAY | END 2024-03-29 13:18 | disposition home or self-care (01) | LOC: HO.US 13:17 | PROVIDERS: PCP Internal Medicine; Visit Provider Obstetrics & Gynecology | DX: N95.0 Postmenopausal bleeding (principal) | CPT/HCPCS: 76830; 76856 ==

== ENCOUNTER 2024-04-09 09:53 | Outpatient (REF) | payer MEDICAID, SELFPAY ==
--- NOTE | ~2024-04-09 | US_ITS ---
EXAMINATION: MM DIAGNOSTIC DIGITAL BREAST TOMOSYNTHESIS, BILATERAL Bilateral Limited ultrasound. CLINICAL INFORMATION: Call back from screening for bilateral upper outer quadrant focal asymmetries. COMPARISON: Mammography: Comparison is made with relevant prior exams. TECHNIQUE: Digital breast mammography with tomosynthesis is performed in both the craniocaudal and mediolateral oblique views along with computer-aided detection (CAD). Bilateral Limited ultrasound. FINDINGS: The breasts are extremely dense, which lowers the sensitivity of mammography (ACR BI-RADS breast composition Category d). Left: Focal asymmetry in the upper outer breast does not persist on additional imaging projections and likely represented overlapping breast tissue. No suspicious calcifications or other abnormal findings. Targeted color Doppler ultrasound in the left upper outer quadrant demonstrates normal fibroglandular breast tissue. There is no sonographic abnormality. Right: Focal asymmetry in the upper outer quadrant does not persist on additional imaging projections and likely represented overlapping breast tissue. Targeted color Doppler ultrasound in the upper outer quadrant demonstrates normal fibroglandular breast tissue. No sonographic abnormality. Results are provided to the patient at time of visit by the technologist. US/US breast BI limited mamm only IMPRESSION: Bilateral breasts: Negative. ASSESSMENT: BI-RADS BI-RADS 1 - Negative RECOMMENDATION: 1 year F/U This patient's information was entered into a reminder system with a target due date for their next mammogram. Electronically signed by: Priya Self DO 04/09/2024 10:58 AM SHERYL
== END 2024-04-09 09:54 | disposition home or self-care (01) ==
LOC: HO.MAMMO 09:53
PROVIDERS: PCP Internal Medicine; Visit Provider Internal Medicine
DX: N64.89 Other specified disorders of breast (principal)
CPT/HCPCS: 76642; 77062; 77066

== ENCOUNTER → 2024-04-09 10:15 | Outpatient (BNV) | payer MEDICAID, SELFPAY | PROVIDERS: PCP Internal Medicine; Visit Provider Internal Medicine | DX: R92.343 Mammographic extreme density, bilateral breasts (principal); R92.8 Other abnormal and inconclusive findings on diagnostic imaging of breast | CPT/HCPCS: 76642; 77062; 77066 ==

== ENCOUNTER 2024-04-22 14:16 | Outpatient (AMB) | payer MEDICAID, SELFPAY ==
--- NOTE | 2024-04-22 14:43 | MHC.OFFVIS ---
Intake Visit Reasons: ultrasound results/pre op Structural Worker Required: Yes Structural Worker Language: Diamond Polisher Services: Structural Worker Present (in person) Structural Worker Name: MIGNON Bryan Information Interpreted: non-clinical & clinical Neurosurgical Physician Assistant: Neurosurgical Physician Assistant Present (MIGNON Bryan) Accompanied by: Self / Same As Patient Allergies cholestyramine Allergy (Intermediate, Verified 04/22/24 14:45) itching Is last menstrual period known: Yes Last menstrual period: 02/10/20 Post menopausal: No Patient : No Do you need a note to return to daycare/school/sports/work: Yes (for surgery on friday) HPI Comments Details: Presenting for ultrasound follow-up for postmenopausal bleeding. Pelvic ultrasound done on 03/29/2024, read on 04/19/2023, report showed the following: Uterus measures 5.9 x 2.7 x 3.3 cm. 2.0 x 1.6 x 2.5 cm uterine mass abuts the endometrium and has characteristics of a fibroid. No significant free fluid. Nabothian cysts in the cervix. Endometrium appears complex with multiple small cystic spaces and thickening of 5 mm. Appearance is abnormal for patient with postmenopausal bleeding. Gynecologic consultation and possible biopsy recommended. RIGHT ovary seen only on limited transabdominal ultrasound images. The structure felt to possibly represent the RIGHT ovary measures 1.7 x 0.9 x 1.1 cm, but could not be visualized with certainty. LEFT ovary measures 0.9 x 0.4 x 0.1 cm. Co testing done in 04/06 was negative PFSH Medical History 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 GERD (gastroesophageal reflux disease) Anxiety Depression Fibromyalgia Surgical History Hx of surgical procedure (~02/19/24) Hx of elbow surgery History of colonoscopy History of bilateral tubal ligation History of cholecystectomy Family History Family/Other Cancer Social History Household Members: None Housing: Apartment Alcohol intake: current Alcohol intake frequency: does not drink Patient Tobacco Use Status: Never used Tobacco Advance Directives Date on File: 01/19/20 Current occupational status: disabled Sexual orientation: Straight/Heterosexual Gender identity: Female Female Reproductive History Menstrual Age of Menarche: 7 Date of last menstrual period: 02/10/20 Total pregnancies: 2 Full term: 2 Review of Systems Card Reports as per HPI and Reports no additional complaints Resp Reports as per HPI and Reports no additional complaints GI Reports as per HPI and Reports no additional complaints Reports as per HPI Physical Exam Const General: cooperative, healthy appearing and comfortable Resp Effort & Inspection: normal respiratory effort Auscultation: clear to auscultation bilaterally Percussion: percussion normal Cardio Palpation: normal PMI Rate: regular rate Rhythm: regular rhythm Heart sounds: no murmurs and no rubs Peripheral pulses: Peripheral pulses 2+ throughout GI Inspection: Yes normal to inspection Palpation (GI): Soft to palpation, nontender, no guarding, not rigid and No hepatosplenomegaly present Percussion: Yes normal to percussion Auscultation: normal bowel sounds Rectal Exam - Female: deferred Assessment & Plan Assessment & Plan (1) Postmenopausal bleeding: Comment: With postcoital bleeding Code(s): N95.0 - Postmenopausal bleeding Category: Medical Plan: Discussed with the patient the pelvic ultrasound findings, the endometrial stripe thickenss measured by ultrasound was more than 4mm. The negative predictive value, positive predictive value, Sensitivity, specificity of using ultrasound measurement of endometrial stripe to detecting endometrial pathology including hyperplasia , polyp or cancer were discussed with the patient. Recommended to the patient that the next step is an endometrial /endocervical sampling via hysteroscopy D&C/endocervical curettage possible polypectomy versus endometrial biopsy to r/o endometrial pathology including hyperplasia or cancer. All the pros and cons risks and benefits of each approach were discussed with the patient, endometrial biopsy being less invasive, office procedure with less sensitivity and inability diagnose a polyp and removal versus hysteroscopy done under anesthesia more invasive more sensitive to endometrial cancer and possibility of diagnosing and endometrial polyp with the possibility of polypectomy. All questions were answered pt verbalized understanding and decided to proceed with hysteroscopy D&C/ECC, possible polypectomy/myomectomy Discussed with the patient the procedure , all benefits and risks including but not limited to inability to complete the procedure , insufficient endometrial tissue for a complete evaluation of the endometrial cavity , bleeding, infection, possible need for blood transfusion with all its risk ( HIV,syphilis, Hepatitis, anaphylaxis shock, others..), injury to bladder, rectum, possible need for laparoscopy/laparotomy or hysterectomy. The patient verbalized understanding and signed the consent. Instructions given the patient to stay NPO after midnight the day prior to the procedure and to take only the specific medication (s) discussed the morning of the surgical procedure and to schedule a 2 week postoperative appointment Coding Level of Care Code Est Pt Level 3 (33794) Diagnoses Postmenopausal bleeding N95.0
== END 2024-04-22 15:23 | disposition home or self-care (01) ==
LOC: HO.HWS 14:16
PROVIDERS: PCP Internal Medicine; Visit Provider Obstetrics & Gynecology
DX: N95.0 Postmenopausal bleeding (principal)
CPT/HCPCS: 99213

== ENCOUNTER → 2024-04-22 14:16 | Outpatient (BNVA) | payer MEDICAID, SELFPAY | PROVIDERS: PCP Internal Medicine; Visit Provider Obstetrics & Gynecology | DX: N95.0 Postmenopausal bleeding (principal) | CPT/HCPCS: 99212 ==

== ENCOUNTER → 2024-05-14 07:26 | Outpatient (BNV) | payer MEDICAID, SELFPAY | PROVIDERS: PCP Internal Medicine; Visit Provider Obstetrics & Gynecology | DX: N95.0 Postmenopausal bleeding (principal); D25.9 Leiomyoma of uterus, unspecified | CPT/HCPCS: 58145 ==

== ENCOUNTER 2024-06-02 15:01 | Outpatient (AMB) | payer MEDICAID, SELFPAY ==
--- NOTE | 2024-06-02 15:05 | MHC.OFFVIS ---
Intake Visit Reasons: post op Recorder Helper Seismograph Required: Yes Recorder Helper Seismograph Language: Putty Mixer And Applier Services: Recorder Helper Seismograph Present (In person) Recorder Helper Seismograph Name: Linn GutierrezERIKATutu Information Interpreted: non-clinical & clinical Blood Bank Credit Clerk: Blood Bank Credit Clerk Present (MIGNON Bryan) Accompanied by: Self / Same As Patient Allergies cholestyramine Allergy (Intermediate, Verified 06/02/24 15:08) itching HPI Comments Details: The patient is presenting post hysteroscopy D&C no complaints minimal vaginal bleeding no feverishness chills or abdominal pain. The pathology showed the following: A. Endometrium, polyp/submucosal myoma, biopsy: Fragments of endometrial polyp with cystic atrophy; fragments of unremarkable smooth muscle possibly representing myometrium or leiomyoma. B. Endometrium, curettage: Fragments and strips of inactive endometrium; negative for atypia, hyperplasia or malignancy. C. Endocervix, curettage: Few fragments of endocervical glands and squamous mucosa; negative for squamous intraepithelial lesion PFSH Medical History 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 GERD (gastroesophageal reflux disease) Anxiety Depression Fibromyalgia Surgical History Hx of surgical procedure (~02/19/24) Hx of elbow surgery History of colonoscopy (03/09/24) History of bilateral tubal ligation History of cholecystectomy Family History Family/Other Cancer Social History Household Members: None Housing: Apartment Are you a primary health care coordinator to a significant other at home: No Do you presently have visiting nurse or other home services: Yes (INSURANCE AUDITOR 1 hour/day) Alcohol intake: current Alcohol intake frequency: does not drink Patient Tobacco Use Status: Never used Tobacco Advance Directives Date on File: 01/19/20 Current occupational status: disabled Sexual orientation: Straight/Heterosexual Gender identity: Female Female Reproductive History Menstrual Age of Menarche: 7 Review of Systems Const All systems reviewed & are unremarkable except as noted in HPI and below Reports as per HPI and Reports no additional complaints GI Reports no additional complaints Reports no additional complaints Assessment & Plan Assessment & Plan (1) Postmenopausal bleeding: Code(s): N95.0 - Postmenopausal bleeding Category: Medical Plan: Discussed with the patient the intraoperative findings and the pathology results . Discussed with the patient the sensitivity, specificity, positive and negative predictive value, of endometrial biopsy in detecting endometrial pathology including but not limited to endometrial hyperplasia, cancer and other pathology; instructed the patient to call in case vaginal bleeding bleeding recurs, the next step will be to proceed with further endometrial sampling evaluation to rule out endometrial pathology. All questions answered and the patient verbalized understanding and agreed with the plan. Coding Level of Care Code Est Pt Level 3 (66642) Diagnoses Postmenopausal bleeding N95.0
--- OUTSIDE RECORDS SUMMARY | 2024-06-02 15:06 | XMS_ITS | Data Portability ---
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 List of possible triggers was provided to patient. She has family members who can help translate that. Agree with the decision to reduce the meclizine and the rationale therein was reviewed. Recommend vestibular therapy but patient declined. She will continue to work with her neurologist. The patient complains of intermittent periauricular discomfort. Physical exam reveals a completely normal examination of the auricles, external auditory canals, and tympanic membranes. Furthermore, examination was positive for crepitus and tenderness of the jaw joint and andrea-TMJ musculature. The patient's intermittent discomfort is most likely consistent with intermittent inflammation of the jaw joint or spasm of the surrounding musculature. This is likely exacerbated by the missing teeth and dental clenching and grinding. The patient was recommended to use light massage, warm compresses or anti-inflammator ies for symptomatic management. Stressed chewing evenly on both sides of the mouth to keep from overworking the jaw joint. Use soft food diet as needed. Jaw Joint Program information sheet was shared. If this treatment plan is ineffective, recommend follow up with their dentist. Referral to physical therapist who specializes in TMJ disorders could also be considered. Not available 11/26/2023 13:02:01 Plan of Treatment Reminders Order Date Submit Date Provider Last Modified By Organization Details Last Modified Time Details Appointments None recorded. Lab None recorded. Referral None recorded. Procedures None recorded. Surgeries None recorded. Imaging MRI, brain + internal auditory canal, w/wo contrast - MRI, BRAIN + INTERNAL AUDITORY CANAL, W/WO CONTRAST 2023 024 [facility] [address], [place], [address], 12:39:15 Medication Orders None recorded. Patient TargetsNo targets recorded. Patient Instructions Encounter Date Encounter Id Patient Instructions Last Modified By Organization Details Last Modified Time 09/04/2023 [id number] Patient complain s of vertigo for 4 years, worsened in the past 2 years. There are some worrisome aspects of the history including pre-syncope, arm weakness, and heart palpitations with chest pressure. I have urged her to discuss again with cardiology. Also recommend MRI brain and IACs, will call family with results. Symptoms, history, physical exam and audiometric findings are also consistent with vestibular migraine (migraine-associate d dizziness), and I suspect there may be an element of Meniere's disease as well. Today we discussed the pathophysiology of migraine and migraine associated phenomena such as dizziness and photosensitivity. We discussed how the patient's balance disturbance symptoms are likely mediated by a central processing abnormality rather than an isolated inner ear abnormality. I gave the patient a significant amount of literature to review at home elucidating many environmental and dietary triggers that can lead to not only migraine headaches but balance disturbance symptoms as well. We spent a lot of time discussing the importance of following a migraine diet. I have also recommended the use of dietary supplements magnesium and vitamin B2. We reviewed the importance of minimizing salt and sugar in the diet, and of maintaining good oral hydration. Patient was provided a symptom diary to track frequency, severity, and triggers for episodes. I will see the patient back in 6-8 weeks at which time we will consider gradually reducing her use of meclizine. Also will consider vestibular therapy and repeat neurologic evaluation. Not available 09/04/2023 15:38:54 Reason for Referral None Reported. Results Created Date Observation Date Name Description Value Unit Range Abnormal Flag Note LastModifiedBy Organization Detail LastModifiedTime 09/23/19 24 09/22/2023 MRI, brain + inter nal audit ory canal , w/wo contr ast No observ ation record ed. [email or web address] [facility] [address] [facility] [place], [address], 09/24/2023 15:40:17 12/03/19 24 09/04/2023 imagi ng/di agnos tic resul t No observ ation record ed. [email or web address] Not Available 20:41:55 Result Notes None recorded. 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, including 'globus hystericus '; Note: Date Diagnosed: 03/04/2018 3:21 PM (F45.8) Not Available [facility] 4 03:26:41 Gastroeso phageal reflux disease without esophagit is 557226629 Active 2017 Gastro-eso phageal reflux disease without esophagiti s; Note: Date Diagnosed: 03/04/2018 3:24 PM (K21.9) Not Available [facility] 4 03:26:41 Dysphagia 56905160 Active 2017 Other dysphagia; Note: Date Diagnosed: 03/04/2018 3:21 PM (R13.19) Not Available [facility] 4 03:26:41 Sensorine ural hearing loss of bilateral ears 999572426 Active 2023 MAYO TADEO, YASMIN [address] [facility],[place] [address], [place], [address] , [place] - [facility] 4 11:10:51 Vertigo 468852048 Active 2023 DIPTI BLOOD PA-C [address] [facility] [address], [place], [address] , [place] - [facility] 4 11:46:48 Migrainou s vertigo 820517719 Active 2023 DIPTI BLOOD PA-C [address] [facility] [address], [place], [address] , [place] - [facility] 4 15:38:23 Bilateral earache 530926040 Active 2023 DIPTI BLOOD PA-C [address],[facility] [address], [place], [address] , [facility] - [facility] 11:22:43 Temporoma ndibular joint disorder 77300846 Active 2023 DIPTI BLOOD PA-C [address],[facility] [address], [place], [address] , [facility] - [facility] 11:23:02 Problem Notes None recorded. Procedures Surgical History Date Name Laterality Status Provider Name and Address Organization Details Recorded Time Comp Audio with Tymps & Reflexes (44515 & 88989) completed YASMIN STEVENSON [address] [facility] [place],[facility] [address], [place], [address], [facility] - [facility] 09/04/2023 11:10:42 Imaging Results Imaging Date Name Status LastModified by Organiz ation Details LastModified Time 09/22/2023 MRI, brain + internal auditory canal, w/wo contrast completed [email or web address] [facility] [address] [place], [address], 09/24/2023 15:40:17 09/04/2023 imaging/diagn ostic result completed [email or web address] Information not available 12/03/2023 20:41:55 Procedure Notes None recorded. Medical Equipment None Reported. Allergies No known drug allergies Medications Name Sig Start Date Stop Date Status Note LastModified by Organization Details LastModified Time tolterodi ne ER 2 mg capsule,e xtended release 24 hr TAKE ONE CAPSULE BY MOUTH ONCE A DAY active Not Available Not Available No t Available oxybutyni n chloride ER 15 mg tablet,ex tended release 24 hr TAKE 1 TABLET BY MOUTH DAILY active Not Available Not Available No t Available loperamid e 2 mg capsule TAKE 1 CAPSULE BY MOUTH EVERY 6 HOURS NEEDED FOR DIARRHEA active Not Available Not Available No t Available amitripty line 75 mg tablet TAKE 1 TABLET BY MOUTH EVERY DAY AT BEDTIME 11/25 completed Not Available Not Available Not Available simethico ne 180 mg capsule TAKE 1 CAPSULE BY MOUTH FOUR TIMES DAILY active Not Available Not Available No t Available fluconazo le 150 mg tablet TAKE 1 TABLET ORALLY. IF SYMPTOMS NOT IMPROVE AFTER 48 HOURS TAKE SECOND TABLET 11/25 completed Not Available Not Available Not Available clonazepa m 0.5 mg tablet Take 1 tablet 3 times a day by oral route. active Not Available Not Available No t Available clindamyc in HCl 150 mg capsule TAKE 1 CAPSULE BY MOUTH FOUR TIMES DAILY 11/25 completed Not Available Not Available Not Available sumatript an 50 mg tablet TAKE 1 TABLET BY MOUTH ONCE A DAY NEEDED. AT LEAST 2 HOURS BETWEEN DOSES NEEDED active Not Available Not Available No t Available acetamino phen ER 650 mg tablet,ex tended release active Not Available Not Available Not Available levothyro xine 75 mcg tablet 11/25 completed Not Available Not Available Not Available levothyro xine 100 mcg tablet 2016 active Medicati on ID: [id number] D uration Value: 30 Brand Name: levothyr oxine Se nd Method: E-Prescr ibed Sub s Allowed: subs OK Speci al Instruct ion: TK 1 T PO D FRIDAY THRU FRIDAY NOTHING ON FRIDAY M tin Kirk Name: levothyr oxine Not Available Not Available Not Available levothyro xine 88 mcg tablet active Not Available Not Available Not Available propranol ol 10 mg tablet Take 2 tablets 3 times a day by oral route. active Not Available Not Available No t Available dicyclomi ne 20 mg tablet TAKE 1 TABLET BY MOUTH FOUR TIMES DAILY active Not Available Not Available No t Available meclizine 25 mg tablet TAKE 1 TABLET BY MOUTH EVERY DAY NEEDED active Not Available Not Available No t Available bisacodyl 5 mg tablet,de layed release TAKE 2 TABLETS BY MOUTH EVERY NIGHT AT BEDTIME FOR 2 DAYS 11/25 completed Not Available Not Available Not Available propranol ol 20 mg tablet TAKE 1 TABLET BY MOUTH TWICE DAILY active Not Available Not Available No t Available fluticaso ne propionat e 50 mcg/actua tion nasal spray,gene pension SHAKE LIQUID AND USE 1 SPRAY IN EACH NOSTRIL EVERY DAY active Not Available Not Available No t Available loratadin e 10 mg tablet TAKE 1 TABLET BY MOUTH EVERY MORNING active Not Available Not Available No t Available naproxen 500 mg tablet TAKE 1 TABLET BY MOUTH TWICE DAILY WITH FOOD active Not Available Not Available No t Available Ventolin HFA 90 mcg/actua tion aerosol inhaler INHALE 2 PUFFS BY MOUTH EVERY 4-6 HOURS NEEDED FOR WHEEZING active Not Available Not Available No t Available chlorhexi dine gluconate 0.12 % mouthwash SWISH AND SPIT 15 ML BY MOUTH IF NEEDED FOR WOUND CARE FOR UP TO 14 DAYS active Not Available Not Available No t Available GaviLyte- G 236 gram-22.7 4 gram-6.74 gram-5.86 gram oral solution DRINK 240ML BY MOUTH EVERY 10 MINUTES UNTIL FECAL EFFLUENT IS CLEAR. DO NOT EXCEED A TOTAL VOLUME OF 2000ML 11/25 completed Not Available Not Available Not Available Dexilant 60 mg capsule, delayed release TAKE 1 CAPSULE BY MOUTH DAILY active Not Available Not Available No t Available Incruse Ellipta 62.5 mcg/actua tion powder for inhalatio n INHALE 1 PUFF BY MOUTH EVERY DAY active Not Available Not Available No t Available Viberzi 100 mg tablet TAKE 1 TABLET BY MOUTH TWICE DAILY. MUST ADMINIST ER WITH A MEAL/JESSIKA D active Not Available Not Available No t Available Vitals None Recorded Social History None recorded. Functional Status None recorded. Mental Status None recorded. Family History Nothing Reported. Medical History Condition Response Anemia Y Fibromyalgia Y Migraines Y Anxiety Y Thyroid Problems Y Depression Y Gynecological HistoryNo gynecological history recorded. Obstetrics History GPAL:G 0 P 0 0 0 0 Past Encounters Encounter ID Performer Location Encounter Start Date Encounter Closed Date Diagnosis/Indication Diagnosis SNOMED-CT Code Diagnosis ICD10 Code Diagnosis Note [id number] DIPTI BLOOD PA-C [facility] [address] [address] 09/04/2023 10:26:40 09/04/2023 12:03:25 Sensorineural hearing loss of bilateral ears 529564892 H90.3 Audiologic al evaluation results:Ri ght ear:{{Norm al auditory thresholds Normal sloping at Normal sloping at 3kHz to a mild to moderate#} } {{ SNHL* [facility] }} with {{excellen t* good fa ir poor no t measurable }} speech discrimina tion.Left ear:{{Norm al auditory thresholds Normal sloping at Normal sloping at 3kHz to a mild to moderate#} } {{ SNHL* C HL MHL }} with {{excellen t* good fa ir poor no t measurable }} speech discrimina tion. Tympanomet ry:Right Ear:{{Type A* Type As Type Ad Type C Type C, shallow & rounded Ty pe B Type B with large volume Cou ld not maintain a hermetic seal}}Left Ear:{{Type A Type As Type Ad Type C Type C, shallow & rounded Ty pe B* Type B with large volume Cou ld not maintain a hermetic seal}} Acoustic Reflexes:M ostly absent reflexes, AU. Present at 2kHz contra and ipsi, AU. Also present was ipsi 1kHz, AD, and contra 1kHz, . Vertigo 554738263 R42 Associated pre-syncop e and arm weakness Migrainous vertigo 99897 4007 H81.8X9 [id number] COLE SANTORO MD [facility] [address] [address] 11/26/2023 10:49:19 11/26/2023 11:27:05 Bilateral earache 953544775 H92.03 Temporoman dibular joint disorder 69379349 M26.609 Migrainous vertigo 18808 4007 H81.8X9 Health Concerns Section Related Observation LastModified by Organization Detai ls LastModified Time None Recorded Concern Status LastModified by Organization Details LastModified Time None Recorded Advance Directives Directive None Recorded Payers Encounter Date Sequence Insurance Name Policy Number Policy Abraham Covered Member ID Abraham Member ID Guarantor Name 09/04/2023 1 [place] [facility] Steffanie Benjamin James [id number] Steffanie Benjamin 11/26/2023 1 [place] [facility] Steffanie Benjamin James [id number] Steffanie Benjamin Notes Date Note Type Note Provider Name and Address Organization Details Recorded Time 09/04/2023 text/html 58 year old aretha van presents for evaluation of ears and balance. Reports a 4 year history of dizziness that has worsened significantly in the past 2 years. Spinning vertigo almost every day, variable in duration. Usually persists about 3 days, constant spinning all day long. Between episodes she feels okay unless she puts her head below heart or moves too suddenly. Episodes are always triggered by movement but om affected days she does feel off immediately upon opening her eyes in the morning and can feel it when the eyes are closed. Associated with bilateral otalgia and feels like pressure in an airplane. She has constant non-pulsatile tinnitus, 24/7 in both ears, which does worsen with episodes of vertigo. Arms get tired and she mixes up her words. She sometimes feels that she will pass out. She has heart palpitations with this and pressure and tightness in the chest. She becomes more sensitive to bright lights and loud noises during episodes, and feels nauseated. Not associated with a change in hearing, extremity or facial paralysis. She endorses chronic migraines for past four years but do not always come on with the dizziness. Takes 30 mg meclizine QD for the past four years as well as sumatriptan. If she takes meclizine and stays still, episodes can be shorter. Takes propranolol for palpitations, has thyroid issues. Palpitations have been ongoing since 1995 and sometimes present separately from the vertigo. Cardiology aware of all of this. No other known cardiac history, has had EKG and other cardiac testing which was normal. Headaches are always on the right and sometimes come on very quickly. Patient was evaluated for this by neurology previously, was given reassurance, and has not had any imaging of the brain. History also notable for labile blood pressure that is not medicated. Has had COWS test years ago and recalls being very dizzy during that test. There is no otorrhea. No significant history of otitis media and no ear surgeries. There is a significant amount of salt and sugar in the diet. DIPTI BLOOD PA-C [address] [place] [address], [phone], [facility] - [facility] 09/04/2023 15:39:50 11/26/2023 text/html 58 year old aretha van presents for follow up on vestibular migraine. She reports 4-5 episodes in the past month. Graded 2 or 3 on the 1-3 severity scale on her symptom diary. Taking sumatriptan 50 mg tends to abort or alleviate symptoms. She has not been taking meclizine every day. Dose has not changed but she takes it less often. Her neurologist only gives her 10 pills per month. She does take amitriptyline any longer. She is seeing neurology again at some point though she does not recall when. She is having throbbing ear pain on the right 3-4 times per month, persisting for several hours. Feels like air trapped inside. Persists until she falls asleep. Has found no modifying factors. No otorrhea. Hearing is stable, does not change with episodes. She grinds her teeth at night. Her jaw pops and cracks. COLE PICKENS MD [address] [place] [address], [place], [address], [place] - [facility] 11/26/2023 13:04:47 OBGyn Episode No OBEpisode recorded.
--- OUTSIDE RECORDS SUMMARY | 2024-06-02 15:06 | XMS_ITS | Clinical Summary ---
Author Organization 175 [facility] Address [address] [place] [address] Phone Care Team Providers Care Outside Plant Field Engineer Name Role Phone Anthony Blevins MD Primary Care Provi natalia Allergies No known active allergies Medications amitriptyline (ELAVIL) 75 mg tablet Take 1 tablet (75 mg total) by mouth. 2 Active bisacodyL (DULCOLAX) 5 mg EC tablet TAKE 2 TABLETS BY MOUTH EVERY NIGHT AT BEDTIME FOR 2 DAYS 4 Active clonazePAM (KlonoPIN) 0.5 mg tablet TAKE 1/2 TO 1 TABLET BY MOUTH DAILY NEEDED Active Dexilant [address] capsule Take 1 capsule (60 mg total) by mouth daily. 2 Active dicyclomine (BENTYL) 20 mg tablet Take 1 tablet (20 mg total) by mouth. Active Viberzi 100 mg tablet TAKE 1 TABLET BY MOUTH TWICE DAILY. MUST ADMINISTER WITH A MEAL/FOOD Active ferrous sulfate 325 mg (65 mg elemental iron) tablet Take by mouth. Activ e fluconazole (DIFLUCAN) 150 mg tablet TAKE 1 TABLET ORALLY. IF SYMPTOMS NOT IMPROVE AFTER 48 HOURS TAKE SECOND TABLET 3 Active fluticasone propionate (FLONASE) 50 mcg/actuation nasal spray Administer 1 spray into each nostril 1 (one) time each day. 4 Active levothyroxine (SYNTHROID, LEVOTHROID) 88 mcg tablet TAKE 1 TABLET(88 MCG) BY MOUTH IN THE MORNING 4 Active loperamide (IMODIUM) 2 mg capsule TAKE 1 CAPSULE BY MOUTH EVERY 6 HOURS NEEDED FOR DIARRHEA Active meclizine (ANTIVERT) 25 mg tablet TAKE 1 TABLET(25 MG) BY MOUTH EACH DAY NEEDED FOR DIZZINESS 4 Active omeprazole (PriLOSEC) [address] capsule Take 1 capsule (20 mg total) by mouth. Active naproxen (NAPROSYN) 500 mg tablet TAKE 1 TABLET BY MOUTH WITH BREAKFAST AND WITH EVENING MEAL NEEDED FOR PAIN 4 Active oxyBUTYnin XL (DITROPAN-XL) 15 mg 24 hr tablet Take 1 tablet (15 mg total) by mouth 1 (one) time each day. Active pregabalin (LYRICA) 100 mg capsule Take 1 capsule (100 mg total) by mouth 2 (two) times a day. Max Daily Amount: 200 mg Active propranoloL (INDERAL) 20 mg tablet Take 1 tablet (20 mg total) by mouth 2 times daily. 2 Active simethicone (MYLICON,GAS-X) 180 mg capsule Take 1 capsule (180 mg total) by mouth 4 times daily as needed. 2 Active sucralfate (CARAFATE) 1 gram tablet TAKE 2 TABLETS BY MOUTH EVERY EVENING BEFORE A MEAL 2 Active SUMAtriptan (IMITREX) 50 mg tablet TAKE 1 TABLET BY MOUTH AT LEAST 2 HOURS BETWEEN DOSES NEEDED ONCE A DAY 2 Active tolterodine LA (DETROL LA) 2 mg 24 hr capsule Take 1 capsule (2 mg total) by mouth 1 (one) time each day. 4 Active Incruse Ellipta 62.5 mcg/actuation inhalation Inhale 1 puff by mouth 1 (one) time each day. Active Encounters Date Type Department Care Team Description 03/03/2024 1:00 PM EST Office Visit Orthopedic Surgery - [address] [place] [address] Jesus Alberto Welch MD Arthritis of carpometacarpal (CMC) joint of left thumb (Primary Dx) from Last 3 Months Surgical History Surgery Date Site/Laterality Comments ULNAR NERVE REPAIR 04/14/2021 - 04/13/2022 Right ulnar nerve decompression? Medical History Medical History Date Comments Hypothyroidism 02/05/2012 DX:Hypothyroidis m Fibromyalgia 02/05/2012 DX:Fibromyalgia Migraine 02/05/2012 DX:Migraine Low back pain 02/05/2012 DX:Low back pain Chest pain 02/05/2012 DX:Chest pain Family History Medical History Relation Name Comments Stroke Aunt 1 Stroke Mother Relation Name Status Comments Aunt 1 Aunt 2 Mother Social History Tobacco Use Types Packs/Day Years Used Date Smoking Tobacco: Never Alcohol Use Standard Drinks/Week Comments Yes 0 (1 standard drink = 0.6 oz pur e alcohol) Comments Unknown Sex and Gender Information Value Date Recorded Sex Assigned at Not on file Legal Sex Female 2:14 AM EST Gender Identity Not on file Sexual Orientation Not on file Obstetrics History Last Filed Vital Signs Vital Sign Reading Time Taken Comments Blood Pressure - - Pulse - - Temperature - - Respiratory Rate - - Oxygen Saturation - - Inhaled Oxygen Concentration - - Weight 64 kg (141 lb) 03/03/2024 10:49 AM EST Height 154.9 cm (5' 1 ) 03/03/2024 10:49 AM EST Body Mass Index 26.64 03/03/2024 10:49 AM EST Plan of Treatment Upcoming Encounters Date Type Department Care Team (Late st Contact Info) Description 06/23/2024 10:30 AM EDT Office Visit Orthopedic Surgery - [place] [facility] [address] [place] [phone] Jesus Alberto Welch MD [address] [facility] [address] [place] [id number] Health Maintenance Due Date Last Done Comments Breast Cancer Screening 1965 Hepatitis A Vaccines (1 of 2 - Risk 2-dose series) 1982 Cervical Cancer Screening: P ap Smear 01/26/1984 Pneumococcal Vaccine: 50+ Years (1 of 1 - PCV) 2013 Zoster Vaccines (1 of 2) 2013 DTaP,Tdap,and Td Vaccines (3 - Td or Tdap) 06/07/2021 06/07/2011, 07/19/1997 Hepatitis B Vaccines (1 of 3 - Risk 3-dose series) 2023 RSV Immunization Patients 60 + Years Old (1 - Risk 60-74 years 1-dose series) 2023 COVID-19 Vaccine (3 2023-2 5 season) 2023 10/28/2020, 10/06/2020 Influenza Vaccine (#1) 2023 Colorectal Cancer Screening: Colonoscopy 01/31/2024 HIV Screening 01/31/2024 Social Influencers of Health Screening 01/31/2024 Depression Screening 08/18/2024 08/19/2023 Hepatitis C Screening Completed 01/27/2023 HIB Vaccines Aged Out No longer eligi ble based on patient's age to complete this topic HPV Vaccines Aged Out No longer eligi ble based on patient's age to complete this topic IPV Vaccines Aged Out No longer eligi ble based on patient's age to complete this topic MMR Vaccines Aged Out No longer eligi ble based on patient's age to complete this topic Meningococcal ACWY Vaccine Aged Out N o longer eligible based on patient's age to complete this topic Meningococcal B Vacine Aged Out No lo nger eligible based on patient's age to complete this topic Pneumococcal Vaccine: Pediatrics (0 to 5 Years) and At-Risk Patients (6 to 64 Years) Aged Out No longer eligible b ased on patient's age to complete this topic RSV Immunization Patients Under 20 months Aged Out No longer eligible b ased on patient's age to complete this topic Varicella Vaccines Aged Out No longer eligible based on patient's age to complete this topic Procedures Procedure Name Priority Date/Time Associated Diagnosis Comments AK ARTHROCENTESIS/ASP IRATION/INJECTION SMALL JOINT/BURSA WO U/S GUIDANCE Routine 03/03/2024 1:00 PM EST Arthritis of carpometacarpal (CMC) joint of left thumb XR FINGERS 2+ VIEWS LEFT Routine 03/03/2024 11:29 AM EST Pain from Last 3 Months Results * AK ARTHROCENTESIS/ASPIRATION/INJECTION SMALL JOINT/BURSA WO U/S GUIDANCE (03/03/2024 1:00 PM EST) Jesus Alberto Dowell MD - 03/03/2024 1:00 PM EST Jesus Alberto Welch MD ? 03/03/2024 12:25 PM S Inj/Asp: L thumb CMC Indications: pain Details: 27 G needle, dorsal approach Medications: 40 mg triamcinolone acetonide 40 mg/mL Outcome: tolerated well, no immediate complications Site was prepped in standard fashion using alcohol swab, sterile technique was used to perform the injection, the patient tolerated the procedure well and a band-aid dressing was applied Informed Consent: ??Site: ??Left thumb cmc joint ??Laterality: ??Left ??Relevant images/test results available and reviewed: yes ?Health status cleared: ??Yes ??Procedure/treatment, purpose, treatment alternatives, risks/potential complications and benefits explained: yes ?Risk/complications/benefits details: ??Risks and benefits of corticosteroid injection were discussed, including risk of pain, bleeding, infection, tissue attenuation, tendon rupture, changes in skin color, and injury to surrounding structures such as arteries, veins and nerves. We also discussed the patient may develop worsening pain for a few days before having improvement in their symptoms. ??Patient questions answered: yes ?Patient agrees, verbalizes understanding, and wants to proceed: yes ?Consent given by: ??Patient ??Informed consent discussion completed by Physician/MINNA with patient: ?? Verbal ??Pre-procedure timeout performed: yes ?? us Jesus Alberto Welch MD IN CLINIC/BEDSIDE ORDERABLES Fin al Result * XR Fingers 2+ Views Left (03/03/2024 11:29 AM EST) Anatomical Region Laterality Modality Upper Extremities, Fingers Left Compu ama Radiography Narrative 03/03/2024 1:02 PM EST X-rays left thumb shows degenerative changes at the thumb CMC joint with small osteophyte formation of the trapezium subchondral sclerosis of the first metacarpal no fractures or dislocation there is MP hyperextension on the lateral radiographs Impression: Degenerative changes of the thumb CMC joint us Jesus Alberto Welch MD IMG XR PROCEDURES Edited Result - Final from Last 3 Months Insurance MEDICAID - [place] Care Teams Outside Plant Field Engineer Relationship Specialty Start Date End Date Anthony Blevins MD [address] [place] [address] [place] [phone] PCP - General 01/12/24
== END 2024-06-02 15:15 | disposition home or self-care (01) ==
LOC: HO.HWS 15:01
PROVIDERS: PCP Internal Medicine; Visit Provider Obstetrics & Gynecology
DX: N95.0 Postmenopausal bleeding (principal)
CPT/HCPCS: 99213

== ENCOUNTER → 2024-06-02 15:01 | Outpatient (BNVA) | payer MEDICAID, SELFPAY | PROVIDERS: PCP Internal Medicine; Visit Provider Obstetrics & Gynecology | DX: N95.0 Postmenopausal bleeding (principal) | CPT/HCPCS: 99212 ==

== ENCOUNTER 2024-06-25 11:59 | Emergency (ER) | payer MEDICAID, SELFPAY ==
--- NOTE | ~2024-06-25 | CT_ITS ---
EXAMINATION: CT CERVICAL SPINE WITHOUT IV CONTRAST HISTORY: neck and R arm pain. TECHNIQUE: Helical CT of the cervical spine was performed per standard departmental protocol. Coronal and sagittal reformatted images were also evaluated. One or more of the following techniques was used for dose reduction: Automated exposure control, adjustment of the mA and/or kV according to patient size, use of iterative reconstruction technique. DLP: 361 mGy-cm COMPARISON: There are no prior studies for comparison. FINDINGS: CERVICAL SPINE: Osseous mineralization is normal. The vertebral bodies maintain normal height without evidence of fracture or subluxation. There is straightening of the normal cervical lordosis. There is mild to moderate degenerative disc disease at the C5-6 level with disc space narrowing and osteophyte formation. There is uncovertebral joint hypertrophy at this level causing probable bilateral neural foraminal stenosis. The remaining intervertebral disc spaces are maintained. Evaluation for disc pathology is limited by lack of intrathecal contrast material. BRAIN: The visualized portion of the brain is unremarkable. SINUSES: The visualized paranasal sinuses, mastoid air cells and middle ear cavities are unremarkable. LUNG APICES: The visualized lung apices are clear. SOFT TISSUES: The visualized paraspinal soft tissues are unremarkable. CT/CT cervical spine wo IV con IMPRESSION: Straightening of the normal cervical lordosis. Mild to moderate degenerative disc disease at the C5-6 level as described. Electronically signed by: Abad Parker MD 06/25/2024 12:58 PM EDT
[2024-06-25 12:10] VITALS: BP 160/52; PULSE 69; RESP 18; TEMP 36.3; O2SAT 98; BMI 27.8
--- NOTE | 2024-06-25 12:10 | ED.GENADULT ---
HPI - General Adult General Chief complaint: Extremity Injury, Upper Stated complaint: neck pain, arm numbness Time Seen by Provider: 06/25/24 16:02 History of Present Illness ED Provider: Velma GONZALES narrative: The patient is a 59-year-old woman who says that several days ago she should developed pain in her neck which started to radiate into her right arm and then down her right arm to her hand. She feels a sense of tingling in the arm. She says that she has been using naproxen without relief. She has had no fever, sweats, chills. No chest pain or shortness of breath. There was no injury. No symptoms in the legs. No symptoms in the left arm. No bowel or bladder control problems. Related Data Home Medications ?Medication ?Instructions ?Recorded ?Confirmed clonazepam 0.5 mg tablet 0.5 mg PO BEDTIME 06/26/21 05/12/24 fluticasone propionate 50 1 spray intranasal DAILY 06/26/21 05/12/24 mcg/actuation nasal spray,suspension (Allergy Relief (fluticasone)) loratadine 10 mg tablet (Allergy 10 mg PO DAILY 06/26/21 05/12/24 Relief (loratadine)) propranolol 20 mg tablet 20 mg PO BID 06/26/21 05/12/24 sumatriptan succinate 50 mg tablet 50 mg PO DAILY PRN Headache 09/21/21 05/12/24 oxybutynin chloride 15 mg 15 mg PO DAILY 03/27/22 05/12/24 tablet,extended release 24 hr levothyroxine 88 mcg tablet 88 mcg PO DAILY 05/12/24 05/12/24 pregabalin 100 mg capsule 100 mg PO BID 05/12/24 05/12/24 Previous Rx's ?Medication ?Instructions ?Recorded calcium 600 mg (as 1 cap PO DAILY #30 caps 03/27/20 carbonate)-vitamin D3 12.5 mcg (500 unit) capsule (Calcium with Vit D3) albuterol sulfate 90 mcg/actuation 2 puff inhalation Q4-6H PRN for 06/26/23 aerosol inhaler (Ventolin HFA) wheezing #18 grams dexlansoprazole 60 mg 60 mg PO DAILY 30 days #30 caps 08/22/23 capsule,biphase delayed release (Dexilant) dicyclomine 20 mg tablet 20 mg PO QID 30 days #120 tabs 08/22/23 eluxadoline 100 mg tablet (Viberzi) 100 mg PO BID #60 tabs 03/10/24 simethicone 180 mg capsule 180 mg PO QID #120 caps 05/12/24 umeclidinium 62.5 mcg/actuation 1 inh inhalation DAILY 30 days #1 06/15/24 blister powder for inhalation ea (Incruse Ellipta) acetaminophen 500 mg capsule 1,000 mg (2 x 500 mg) PO Q8H PRN 06/25/24 pain #20 caps cyclobenzaprine 10 mg tablet 10 mg PO TID PRN muscle spasm #14 06/25/24 tabs Allergies Allergy/AdvReac Type Severity Reaction Status Date / Time cholestyramine Allergy Intermediate itching Verified 06/25/24 12:13 Review of Systems Review of Systems: Yes all other systems are reviewed and are negative [facility] Past Medical History Medical History 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 GERD (gastroesophageal reflux disease) Anxiety Depression Fibromyalgia Surgical History Hx of surgical procedure (~02/19/24) Hx of elbow surgery History of colonoscopy (03/09/24) History of bilateral tubal ligation History of cholecystectomy Family History Family History Family/Other Cancer Social History Social History Household Members: None Housing: Apartment Are you a primary professional healthcare representative to a significant other at home: No Do you presently have visiting nurse or other home services: Yes ([employer] MANA[employer] 1 hour/day) Alcohol intake: current Alcohol intake frequency: does not drink Patient Tobacco Use Status: Never used Tobacco Advance Directives: Yes Advance Directives on File: Yes Advance Directives Date on File: 01/19/20 Do you have a plan to hurt others: No Plan Current occupational status: disabled Sexual orientation: Straight/Heterosexual Gender identity: Female Physical Exam ED Vital Signs: Vital Signs - 24 hr 06/25/24 12:10 06/25/24 16:44 Temperature 97.3 F 0 F L Pulse Rate 69 0 L Respiratory Rate 18 18 Blood Pressure 160/52 H 00/0 L Pulse Oximetry 98 0 L Oxygen Delivery Method Room Air Room Air BMI result Body Mass Index 27.8 Const Other: The patient is awake and alert. She was holding her right arm draped over her head. She was pleasant and cooperative. HENMT Other: Face is symmetrical. Mucous membranes moist. Eyes General: appearance normal, both eyes and all related structures Neck Other: There is tenderness in the right paraspinous muscles of the neck. No swelling. She is able to move the neck. Resp Effort & Inspection: normal respiratory effort Auscultation: clear to auscultation bilaterally Cardio Rate: regular rate Rhythm: regular rhythm Heart sounds: S1 normal heart sound present and S2 normal heart sound present Skin Other: The skin is dry and unremarkable Neuro Other: The patient is awake and alert with a normal mental status. Cranial nerves are grossly intact. She has intact strength in her hands. 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 There is no pronator drift. She reports intact sensation in the hand. She has a normal gait. Extrem Other: No peripheral edema. No swelling of the right arm. Course Course Course Narrative: This is a rapid medical exam performed by Dori Rodriguez NP: Additional HPI, ROS, PE not included below will be deferred to primary provider. Patient is a 59-year-old Eritrean speaking female presenting with complaint of right sided posterior neck pain radiating down right arm with associated tingling to arm x a few days. Has also been having elevated blood pressure readings. Using naproxen, Tylenol, topical cream without relief. Plan: Ct c spine, EKG Medications Administered Discontinued Medications Generic Name Dose Route Start Last Admin Trade Name Gabriel PRN Reason Stop Dose Admin Ketorolac Tromethamine 30 mg 06/25/24 16:23 06/25/24 16:38 Ketorolac Tromethamine 30 Mg/Ml Vial IM 06/25/24 16:24 30 mg ONCE ONE Administration Medical Decision Making Medical Decision Making [facility] Narrative: The patient is a 59-year-old woman who has had right-sided neck pain radiating down her right arm for several days. A CT of the cervical spine was done at triage. This showed [id number] degenerative disc disease at the C5-C6 level. The CT scan goes on to say that there is [id number] degenerative disc disease of the C5-C6 level with disc space narrowing and osteophyte formation. There is uncovertebral joint hypertrophy at this level causing probable bilateral neural foraminal stenosis. The patient is neurological exam is reassuring. Her symptoms seem consistent with a painful radiculopathy in the right arm. She has been seen in the past at [facility] for low back problems. I think she will need to go back to this office to discuss this new problem. She will be given a prescription for cyclobenzaprine. She should also contact her PCP for follow up as well. Discharge Plan Discharge Clinical Impression: Neck pain on right side, Radiculopathy affecting upper extremity Patient Disposition: Home, Self-Care Instructions: Acute Neck Pain (ED) Additional Instructions: I think the pain in your right shoulder and arm is probably coming from a pinching of a nerve in your neck. I think you will need to be seen again at [facility]. Please contact your to get a referral to [facility] or any other specialist your regular doctor may think you should see. In the meantime continue to use your naproxen as needed for pain. I have also sent a prescription for acetaminophen which you may take up to 3 times a day as needed. There is also a prescription for cyclobenzaprine (Flexeril). You may use this medication up to 3 times a day. Do not drive on this medication. It can make you drowsy. Therefore please contact your regular doctor for a follow up and possible referral. Return to the emergency room if significantly worse. Prescriptions: New cyclobenzaprine 10 mg tablet 10 mg PO TID PRN (Reason: muscle spasm) Qty: 14 0RF acetaminophen 500 mg capsule 1,000 mg PO Q8H PRN (Reason: pain) Qty: 20 0RF No Action Viberzi 100 mg tablet 100 mg PO BID Qty: 60 5RF Rx Instructions: must administer with a meal/food simethicone 180 mg capsule 180 mg PO QID Qty: 120 0RF Incruse Ellipta 62.5 mcg/actuation blister with device 1 inh inhalation DAILY 30 Days Qty: 1 6RF pregabalin 100 mg capsule 100 mg PO BID levothyroxine 88 mcg tablet 88 mcg PO DAILY calcium carbonate-vitamin D3 [Calcium 600 with Vitamin D3] 600 mg(1,500mg) -500 unit capsule 1 cap PO DAILY Qty: 30 11RF propranolol 20 mg tablet 20 mg PO BID clonazepam 0.5 mg tablet 0.5 mg PO BEDTIME Rx Instructions: administer 30 minutes before bedtime fluticasone propionate [Allergy Relief (fluticasone)] 50 mcg/actuation spray,suspension 1 spray intranasal DAILY Rx Instructions: administer into each nostril loratadine [Allergy Relief (loratadine)] 10 mg tablet 10 mg PO DAILY oxybutynin chloride 15 mg tablet extended release 24hr 15 mg PO DAILY sumatriptan succinate 50 mg tablet 50 mg PO DAILY PRN (Reason: Headache) albuterol sulfate [Ventolin HFA] 90 mcg/actuation HFA aerosol inhaler 2 puff inhalation Q4-6H PRN (Reason: for wheezing) Qty: 18 6RF dexlansoprazole [Dexilant] 60 mg capsule,biphase delayed releas 60 mg PO DAILY 30 Days Qty: 30 6RF dicyclomine 20 mg tablet 20 mg PO QID 30 Days Qty: 120 6RF Referrals: [facility] [Provider Group] (Neck pain, right arm radiculopathy) Anthony Blevins MD [Primary Care Provider] - (Neck pain and right arm radiculopathy) Interventions: ED Discharge Assessment Last Done: 06/25/24 16:44 Discharge Date/Time: 06/25/24 16:45 Print Language: Eritrean
--- NOTE | 2024-06-25 12:12 | ECG_ITS ---
Test Reason : cp Blood Pressure : */* mmHG Vent. Rate : 60 BPM Atrial Rate : 60 BPM P-R Int : 152 ms QRS Dur : 70 ms QT Int : 390 ms P-R-T Axes : 36 15 63 degrees QTcB Int : 390 ms Normal sinus rhythm Normal ECG When compared with ECG of 07-Feb-2022 10:26, No significant change was found Referred By: Saloni Rodriguez Electronically Signed By: CRISTINA ATKINSON
--- OUTSIDE RECORDS SUMMARY | 2024-06-25 16:14 | XMS_ITS | Clinical Summary ---
Author Organization 175 [facility] Address [address] [place] [phone] Phone Care Team Providers Care Skip Operator Name Role Phone Anthony Blevins MD Primary [...] Encounters Date Type Department Care Team Description 06/23/2024 10:30 AM EDT Office Visit Orthopedic Surgery - [address] [place] [address] Jesus Alberto Welch MD Arthritis [...] - Inhaled Oxygen Concentration - - Weight 66.2 kg (146 lb) 06/23/2024 10:31 AM EDT Height 154.9 cm (5' 1 ) 06/23/2024 10:31 AM EDT Body Mass Index 27.59 06/23/2024 10:31 AM EDT Plan of Treatment Health Maintenance Due Date Last Done Comments Breast Cancer Screening 1965 Hepatitis A Vaccines (1 of 2 - Risk 2-dose series) 1982 Pneumococcal Vaccine: 50+ Years (1 of 1 - PCV) 2013 Zoster Vaccines (1 of 2) 2013 DTaP,Tdap,and Td Vaccines (3 - Td or Tdap) 06/07/2021 06/07/2011, 07/19/1997 Hepatitis B Vaccines (1 of 3 - Risk 3-dose series) 2023 RSV Immunization Patients 60 + Years Old (1 - Risk 60-74 years 1-dose series) 2023 COVID-19 Vaccine (3 - 2023-2 5 season) 2023 10/28/2020, 10/06/2020 Influenza Vaccine (#1) 2023 Colorectal Cancer Screening: Colonoscopy 01/31/2024 HIV Screening 01/31/2024 Social Influencers of Health Screening 01/31/2024 Depression Screening 06/17/2025 06/17/2024 Cervical Cancer Screening: P ap Smear 03/17/2027 03/17/2024 Hepatitis C Screening Completed 01/27/2023 HIB Vaccines [...] on patient's age to complete this topic Insurance MEDICAID - [place] Care Teams Skip Operator Relationship Specialty Start Date End Date Anthony Blevins MD [address] [place] [phone] PCP - General 01/12/24
--- OUTSIDE RECORDS SUMMARY | 2024-06-25 16:14 | XMS_ITS | Data Portability ---
Author Organization [place] - [facility], Allergy Address [address] [place] [address] Care Team Providers Care Commercial Housekeeper Name Role Phone SOPHIE KIM Primary Care [...] AUDITORY CANAL, W/WO CONTRAST 2023 024 TAI [facility] [address], [place], [address], 12:39:15 Medication Orders None recorded. Patient TargetsNo [...] contr ast No observ ation record ed. [email or web address] [facility] [address] [facility], [address], 09/24/2023 15:40:17 12/03/19 24 09/04/2023 imagi ng/di agnos tic resul t No observ ation record ed. [email or web address] Not Available 20:41:55 Result Notes None recorded. 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, including 'globus hystericus '; Note: Date Diagnosed: 03/04/2018 3:21 PM (F45.8) Not Available [facility] 4 03:26:41 Gastroeso phageal reflux disease without esophagit is 995814852 Active 2017 Gastro-eso phageal reflux disease without esophagiti s; Note: Date Diagnosed: 03/04/2018 3:24 PM (K21.9) Not Available [facility] 4 03:26:41 Dysphagia 01743228 Active 2017 Other dysphagia; Note: Date Diagnosed: 03/04/2018 3:21 PM (R13.19) Not Available [facility] 4 03:26:41 Sensorine ural hearing loss of bilateral ears 654357029 Active 2023 MAYO TADEO, YASMIN [address] [facility],[place] [address], [place], [address] , [place] - [facility] 4 11:10:51 Vertigo 349456293 Active 2023 DIPTI BLOOD PA-C [address] [facility] [address], [place], [address] , [place] - [facility] 4 11:46:48 Migrainou s vertigo 476399237 Active 2023 DIPTI BLOOD PA-C [address] [facility] [address], [place], [address] , [place] - [facility] 4 15:38:23 Bilateral earache 132913453 Active 2023 DIPTI BLOOD PA-C [address] [place],[facility] 100, [place], [address] , [facility] - [facility] 11:22:43 Temporoma ndibular joint disorder 19048553 Active 2023 DIPTI BLOOD PA-C [address] [place],[facility] 100, [place], [address] , [facility] - [facility] 11:23:02 Problem Notes None recorded. Procedures Surgical History Date Name Laterality Status Provider Name and Address Organization Details Recorded Time Comp Audio with Tymps & Reflexes (40577 & 37970) completed YASMIN STEVENSON [address] [facility] [place],[facility], [place], [address], [facility] - [facility] 09/04/2023 11:10:42 Imaging Results Imaging Date Name Status LastModified by Organiz ation Details LastModified Time 09/22/2023 MRI, brain + internal auditory canal, w/wo contrast completed [email or web address] [facility] [address] [place], [address], 09/24/2023 15:40:17 09/04/2023 imaging/diagn ostic result completed [...] mcg tablet 2016 active Medicati on ID: [id number] D uration Value: 30 Brand Name: levothyr [...] Note 1291 DIPTI BLOOD PA-C [facility] [address] [address] 09/04/2023 10:26:40 09/04/2023 12:03:25 Sensorineural hearing loss of bilateral ears 638208774 H90.3 Audiologic al evaluation results:Ri ght ear:{{Norm [...] 1kHz, AD, and contra 1kHz, . Vertigo 223948086 R42 Associated pre-syncop e and arm weakness Migrainous vertigo 67017 4007 H81.8X9 [id number] COLE SANTORO MD [facility] [address] [address] 11/26/2023 10:49:19 11/26/2023 11:27:05 Bilateral earache 202637934 H92.03 Temporoman dibular joint disorder 62871392 M26.609 Migrainous vertigo 42933 4007 H81.8X9 Health Concerns Section Related Observation LastModified by Organization Detai ls LastModified Time None Recorded Concern Status LastModified by Organization Details LastModified Time None Recorded Advance Directives Directive None Recorded Payers Encounter Date Sequence Insurance Name Policy Number Policy Abraham Covered Member ID Abraham Member ID Guarantor Name 09/04/2023 1 [place] [facility] Steffanie Benjamin James [id number] Steffanie Benjamin 11/26/2023 1 [place] [facility] Steffanie Benjamin James [id number] Steffanie Benjamin Notes Date Note Type Note [...] sugar in the diet. DIPTI BLOOD PA-C [address] [place] [address], [address], [facility] - [facility] 09/04/2023 15:39:50 11/26/2023 text/html 58 year [...] jaw pops and cracks. COLE PICKENS MD [address] [place] [address], [place], [address], [place] - [facility] 11/26/2023 13:04:47 OBGyn Episode No OBEpisode recorded.
--- OUTSIDE RECORDS SUMMARY | 2024-06-25 16:14 | XMS_ITS | Encounter Summary ---
Author Organization [facility] Address [address] [place] [address] Care Team Providers Care Cooking Appliance Repair Technician Name Role Phone Anthony Blevins MD Primary Care Provi natalia Reason for Visit * Reason Comments Follow-up Pain Encounter Details Date Type Department Care Team (Latest Contact Info) Description 06/23/2024 10:30 AM EDT Office Visit Orthopedic Surgery - [place] [address] [facility] [address] [place] [id number] Jesus Alberto Welch MD [address] [facility] [address] [place] [address] Arthritis of carpometacarpal (CMC) joint of left thumb (Primary Dx) Social History Tobacco Use Types Packs/Day Years Used Date Smoking Tobacco: Never Alcohol Use Standard Drinks/Week Comments Yes 0 (1 standard drink = 0.6 oz pur e alcohol) Comments Unknown Sex and Gender Information Value Date Recorded Sex Assigned at Not on file Legal Sex Female 2:14 AM EST Gender Identity Not on file Sexual Orientation Not on file documented as of this encounter Last Filed Vital Signs Vital Sign Reading Time Taken Comments Blood Pressure - - Pulse - - Temperature - - Respiratory Rate - - Oxygen Saturation - - Inhaled Oxygen Concentration - - Weight 66.2 kg (146 lb) 06/23/2024 10:31 AM EDT Height 154.9 cm (5' 1 ) 06/23/2024 10:31 AM EDT Body Mass Index 27.59 06/23/2024 10:31 AM EDT documented in this encounter Progress Notes * Jesus Alberto Welch MD - 06/23/2024 10:30 AM EDT Date: June 22, 2024 Diagnosis: left thumb cmc arthritis Last seen: 03/03/24 (I left thumb cmc joint) Pharmaceutical Analyst: Jenniffer #[id number] HPI: Steffanie James is a 59 y.o. female RHD presenting for followup regarding her left thumb CMC arthritis. She says that her injection greatly improved her thumb pain. She only occasionally has pain now with activities that require a pinch act tutor. She did notice some hypopigmentation at the area ofthe injection but this is not bothersome for her. She has not had any new falls injuries and deniesany numbness or tingling in that hand. Objective Focused Exam: Left Upper Extremity Skin intact Minimal discomfort at cmc joint with grind test thumb MP with 20 degrees hyper extension Fires EPL/FPL/FDP/IO/APB SILT M/R/U palpable radial pulse Imaging: No new imaging Medical Decision Making (base on 2 out of 3 elements): Problems Addressed: Low- 1 stable chronic illness Tests Ordered and/or Reviewed: Low Risk Level: Low risk Assessment: Steffanie James presents with Follow-up for her CMC arthritis. She has had improvement after corticosteroid injection. We discussed the hypopigmentation in her hand. Discussed that this may resolve but I not able to reliably predict how long this may take. I discussed that this might be at increased risk for worsening hypopigmentation or skin attenuation with repeat corticosteroid injections. She says it does not really minor hypopigmentation and she might even do a repeat injection if it helps her to avoid surgery in the future. She declined a repeat corticosteroid ejections today she says she is not having pain. We discussed the possibility for bracing to manage her symptoms if they r ecur and we provided her with a thumb spica brace. She will follow-up on as- needed basis. Plan: Left thumb cmc arthritis -opponens brace -f/u PRN Jesus Alberto Welch MD documented in this encounter Plan of Treatment Not on file documented as of this encounter Visit Diagnoses Diagnosis Arthritis of carpometacarpal (CMC) joint of left thumb- Primary documented in this encounter Care Teams Cooking Appliance Repair Technician Relationship Specialty Start Date End Date Anthony Blevins MD [address] [facility] [place] [address] PCP - General 01/12/24 documented as of this encounter
[2024-06-25] MEDS: Ketorolac Tromethamine 30 MG/ML VIAL IM (16:38)
[2024-06-25 16:44] VITALS: BP 00/0; PULSE 0; RESP 18; TEMP -17.7; TEMP 0; O2SAT 0
== END 2024-06-25 16:45 | disposition home or self-care (01) ==
PROVIDERS: Emergency Provider Emergency Medicine; PCP Internal Medicine
DX: M54.2 Cervicalgia (principal); M54.10 Radiculopathy, site unspecified; R07.89 Other chest pain; R20.0 Anesthesia of skin; M79.601 Pain in right arm; Z79.899 Other long term (current) drug therapy
CPT/HCPCS: 72125; 93005; 96372; 99283; 99284; J1885

== ENCOUNTER → 2024-06-25 12:12 | Outpatient (BNV) | payer MEDICAID, SELFPAY | PROVIDERS: Emergency Provider Emergency Medicine; PCP Internal Medicine; Visit Provider Internal Medicine | DX: R07.9 Chest pain, unspecified (principal) | CPT/HCPCS: 93010 ==

== ENCOUNTER → 2024-06-25 12:12 | Outpatient (BNV) | payer MEDICAID, SELFPAY | PROVIDERS: PCP Internal Medicine; Visit Provider Radiology Diagnostic Radiology | DX: M50.322 Other cervical disc degeneration at C5-C6 level (principal) | CPT/HCPCS: 72125 ==

== ENCOUNTER 2024-06-29 10:37 | Outpatient (AMB) | payer MEDICAID, SELFPAY ==
--- NOTE | 2024-06-29 10:45 | A.OFFVIS_ITS ---
Intake Visit Reasons: CLERICAL METHODS ANALYST/HHC referral for PVD Intake Note: New patient presents for PVD. States she has pain, burning and cramping. Her legs swell but it is on and off. When she walks her legs tire easily. Accompanied by: Self / Same As Patient Allergies cholestyramine Allergy (Intermediate, Verified 06/29/24 10:47) itching HPI HPI CLERICAL METHODS ANALYST/HHC referral for PVD: Details: Steffanie, a pleasant 59 yo Bengali speaking only female patient, is presenting today for concerns of bilateral lower extremity swelling and pain/discomfort. We utilized Doreen as an audio tape librarian. Complaints include pain/discomfort, swelling of lower extremities, cramping, fatigue, and heaviness of the lower extremities. It has been affecting their daily activities including walking, standing, and physical activity. It is noted in bilateral legs. She is a non- smoker and not a diabetic. She denies any recent injuries/wounds to her lower extremities. She does have a history of low back pain. She was also recently seen for neck pain, and was told she may have a pinched nerve in her neck. Patient denies any previous venous surgery or injections. Patient denies any history of DVT/ PE. Patient denies any history of phlebitis. Trial of compression includes - elevation with little relief, it increases the pain in her back. They now present for vascular evaluation regarding their varicose veins. [facility] Medical History 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 GERD (gastroesophageal reflux disease) Anxiety Depression Fibromyalgia Surgical History Hx of surgical procedure (~02/19/24) Hx of elbow surgery History of colonoscopy (03/09/24) History of bilateral tubal ligation History of cholecystectomy Family History Family/Other Cancer Social History Household Members: None Housing: Apartment Are you a primary medical care manager to a significant other at home: No Do you presently have visiting nurse or other home services: Yes (DRAWBENCH OPERATOR HELPER 1 hour/day) Alcohol intake: current Alcohol intake frequency: does not drink Patient Tobacco Use Status: Never used Tobacco Advance Directives Date on File: 01/19/20 Current occupational status: disabled Sexual orientation: Straight/Heterosexual Gender identity: Female Female Reproductive History Menstrual Age of Menarche: 7 Review of Systems Const Reports as per HPI and Denies weakness ENT Reports Normal hearing present and Denies dizziness Card Reports as per HPI, Denies chest pain, Denies chest pain at rest, Denies chest pain with activity, Denies dyspnea and Denies dyspnea on exertion Resp Reports as per HPI, Denies cough, Denies dyspnea and Denies dyspnea on exertion GI Reports as per HPI, Denies abdominal pain, Denies nausea and Denies vomiting Musc Denies numbness Skin/Breast Reports as per HPI, Denies erythema and Denies wounds Neuro Reports Normal hearing present, Denies dizziness, Denies numbness, Denies Sensory deficit (Neuro) and Denies weakness Psych Reports no additional complaints Endo Reports no additional complaints Physical Exam Neuro Cranial nerves: Yes Normal hearing present Sensory Exam: No Sensory deficit (Neuro) Extrem Other: Bilateral lower extremities: trace peripheral edema noted. Palpable DP/PT pulses. No varicosities noted. CEAP: C - 3 E - primary A - superficial P - reflux Assessment & Plan Assessment & Plan (1) Varicose veins of both lower extremities with inflammation: Code(s): I83.11 - Varicose veins of right lower extremity with inflammation; I83.12 - Varicose veins of left lower extremity with inflammation Category: Medical Plan: Steffanie is presenting today with concerns of bilateral lower extremity swelling and pain/discomfort, worsening over the last 6m. In short, the patient has evidence of venous insufficiency. I have discussed the pathophysiology with the patient. In addition I have provided informational material regarding venous disease to the patient. We have discussed conservative measures including compression, elevation, and exercise. We were able to provide her with compression stockings; unfortunately our handout is not in Bengali. I have taken the liberty of ordering venous insufficiency testing with the patient. They will follow up with me after testing. The patient had an opportunity to ask questions regarding the treatment plan. All questions were answered. Imaging studies, laboratory studies and physical exam results were discussed and reviewed in detail. No major barriers to understanding were identified. The patient expressed understanding and agreement with the above treatment plan. The patient is aware they should contact our office by phone for worsening of the current condition or the appear ance of new symptoms. Thank you for allowing me to participate in the vascular care of this patient. If you have any questions or concerns regarding the treatment for the above condition please do not hesitate to contact me. The office telephone contact is [phone]. This note is constructed using voice recognition software. While every effort has been made to ensure accuracy, gas utility worker errors may have been included. Thank you for allowing me to participate in the care of your patient. Yours sincerely, KRISTIAN Pope Orders: Orders US venous duplex LE BI 1 Week I83.11 - Varicose veins of right lower extremity with inflammation, I83.12 - Varicose veins of left lower extremity with inflammation Coding Level of Care Code New Pt Level 4 (56078) Diagnoses Varicose veins of both lower extremities with inflammation I83.11; I83.12
--- OUTSIDE RECORDS SUMMARY | 2024-06-29 12:34 | XMS_ITS | Clinical Summary ---
Author Organization [employer] Address [address] [facility] [address] [place] [address] Care Team Providers Care Drafter Patent Name Role Phone Anthony Moreno MD Primary Care Provide r Allergies No known active allergies Medications SUMAtriptan (Imitrex) 50 MG tablet TAKE 1 TABLET BY MOUTH AT LEAST 2 HOURS BETWEEN DOSES NEEDED ONCE A DAY 11/22/19 Active sucralfate (Carafate) 1 g tablet TAKE 2 TABLETS BY MOUTH EVERY EVENING BEFORE A MEAL 01/02/20 Active Simethicone Ultra Strength 180 MG capsule Take 180 mg by mouth if needed in the morning, at noon, in the evening, and at bedtime. 03/15/20 Active propranolol (Inderal) 20 MG tablet Take 20 mg by mouth 2 times daily. 12/28/19 Active oxybutynin XL (Ditropan-XL) 15 MG 24 hr tablet Take 15 mg by mouth in the morning. 02/02/20 Active dicyclomine (Bentyl) 20 MG tablet Take 20 mg by mouth 4 times daily. 03/16/[address] Active [address] capsule Take 1 capsule by mouth in the morning. 02/02/20 Active clonazePAM (KlonoPIN) 0.5 MG tablet TAKE 1/2 TO 1 TABLET BY MOUTH EVERY DAY NEEDED 02/01/20 Active amitriptyline (Elavil) 75 MG tablet Take 75 mg by mouth at bedtime. 03/15/20 Active ProAir HFA 108 (90 Base) MCG/ACT inhaler INHALE 2 PUFFS BY MOUTH EVERY 4 TO 6 HOURS NEEDED FOR SHORTNESS OF BREATH OR WHEEZING 11/03/20 22 Active hydrocortisone (Proctosol HC) 2.5 % rectal creamIndications: BRBPR (bright red blood per rectum) Insert into the rectum 2 times daily. 28 g 08/07/19 23 Active Viberzi 100 MG tablet Take 1 tablet by mouth 2 times daily. 01/04/20 23 Active Incruse Ellipta 62.5 MCG/ACT aerosol powder INHALE 1 PUFF BY MOUTH DAILY 01/07/20 23 Active loperamide (Imodium) 2 MG capsule TAKE 1 CAPSULE BY MOUTH EVERY 6 HOURS NEEDED FOR DIARRHEA 01/04/20 23 Active loratadine (Claritin) 10 MG tabletIndications :Seasonal allergies TAKE 1 TABLET BY MOUTH EVERY MORNING 90 tablet 1 03/13/20 23 Active levothyroxine (Synthroid, Levoxyl) 88 MCG tabletIndications :Acquired hypothyroidism TAKE 1 TABLET(88 MCG) BY MOUTH IN THE MORNING 90 tablet 1 02/17/20 24 Active fluticasone (Flonase) 50 MCG/ACT nasal spray SHAKE LIQUID AND USE 1 SPRAY IN EACH NOSTRIL EVERY DAY 48 g 02/17/20 24 Active meclizine (Antivert) 25 MG tabletIndications :Vertigo TAKE 1 TABLET(25 MG) BY MOUTH EACH DAY NEEDED FOR DIZZINESS 30 tablet 1 02/17/20 24 Active naproxen (Naprosyn) 500 MG tablet TAKE 1 TABLET BY MOUTH WITH BREAKFAST AND EVENING MEALS NEEDED PAIN 60 tablet 06/16/19 25 Active Multiple Vitamin (multivitamin) tabletIndications :Peripheral polyneuropathy Take 1 tablet by mouth Once per day. 30 tablet 6 06/18/19 25 Active pregabalin (Lyrica) 100 MG capsuleIndication s:Peripheral polyneuropathy TAKE 1 CAPSULE BY MOUTH TWICE DAILY 60 capsule 1 06/18/19 25 Active pregabalin (Lyrica) 100 MG capsuleIndication s:Peripheral polyneuropathy Take 1 capsule (100 mg) by mouth 2 times daily. 60 capsule 3 11/27/19 24 025 Discontinued naproxen (Naprosyn) 500 MG tablet TAKE 1 TABLET BY MOUTH WITH BREAKFAST AND WITH EVENING MEALS NEEDED FOR PAIN 60 tablet 05/13/19 25 025 Discontinued Active Problems Problem Noted Date Diagnosed Date Postmenopausal bleeding 06/17/2024 Assessment & Plan (06/17/2024 2:48 PM EST): Under the care of Dr gary Lovett OUTCOMES SPECIALIST , last seen 05/2024 She is now s/p post hysteroscopy D C The pathology showed the following: A. Endometrium, polyp/submucosal myoma, biopsy: Fragments of endometrial polyp with cystic atrophy; fragments of unremarkable smooth muscle possibly representing myometrium or leiomyoma. B. Endometrium, curettage: Fragments and strips of inactive endometrium; negative for atypia, hyperplasia or malignancy. C. Endocervix, curettage: Few fragments of endocervical glands and squamous mucosa; negative for squamous intraepithelial lesion She will continue to follow with Dr. Lovett Overweight (BMI 25.0-29.9) 06/17/2024 Assessment & Plan (06/17/2024 2:51 PM EST): Patient has been counseled and educated about diet and exercise. Personal goal of weight loss discussed Osteoarthritis of both hands 01/06/2024 Assessment & Plan (03/02/2024 2:51 PM EST): Evaluated by Rheumatology last seen 06/2023 recommended 1 year follow up Prior serology with negative SONYA, RF, and anti-CCP. Hand pain to the right is resolved, X-rays from 2022 showed osteoarthritis. No synovitis on exam. She refused injection from Sheriff Officer. She had surgery on the right elbow for nerve pain and wants to he the left hand done. Sheriff Officer recommended to continue with Tylenol and over the counter topicals such as Aspercreme. Today she is primarily c/o pain on her right thumb and her thumb 'locking in Etiology ? deQuervain tendinitis ? As she has tenderness to palpation of base of both thumbs Plain films showed: RIGHT HAND: Severe first carpometacarpal degenerative arthritis, progressed when compared to the prior examination. LEFT HAND: Moderate first carpometacarpal degenerative arthritis, progressed when compared to the prior examination. Additional degenerative arthritis throughout the interphalangeal joints, progressed. Central erosions at the third distal interphalangeal joint, which are new/increased. NCS let hand showed: IMPRESSION: 1. This is a normal study. 2. There is no electrodiagnostic evidence for median neuropathy, ulnar neuropathy, brachial plexopathy, or cervical radiculopathy. Seen by Ortho who discussed different treatment modalities for now , she opted for bracing. Reports of films were also faxed to patient's patient financial representative Assessment & Plan (01/06/2024 10:16 AM EDT): Evaluated by Rheumatology last seen 06/2023 recommended 1 year follow up Prior serology with negative SONYA, RF, and anti-CCP. Hand pain to the right is resolved, X-rays from 2022 showed osteoarthritis. No synovitis on exam. She refused injection from Sheriff Officer. She had surgery on the right elbow for nerve pain and wants to he the left hand done. Sheriff Officer recommended to continue with Tylenol and over the counter topicals such as Aspercreme. Today she is primarily c/o pain on her right thumb and her thumb 'locking in Etiology ? deQuervain tendinitis ? As she has tenderness to palpation of base of both thumbs Plan: Plain films, NCS right hand, Ortho eval with Dr. Washington might benefit from steroid injection If symptoms do not improve she may want to consider referral to occupational therapy. Xerostomia 01/05/2024 Hypersomnolence 06/17/2023 Assessment & Plan (06/17/2023 2:05 PM EST): Referred to sleep medicine previous visit Peripheral neuropathy 06/17/2023 Assessment & Plan (06/17/2024 3:14 PM EST): Patient with persistent c/o feeling like at night she keeps wanting to move her legs and c/o burning discomfort on both legs and feet NCS showed: Mild to moderate axonal sensory motor peripheral neuropathy. Pt is taking Lyrica 100 mg po BID Plan; Obtain vascular studies Assessment & Plan (08/19/2023 1:34 PM EDT): Pt with previous c/o feeling like at night she keeps wanting to move her legs and c/o burning discomfort on both legs and feet Etiology ? Neuropathy ? RLS NCS showed: Mild to moderate axonal sensory motor peripheral neuropathy. Pt had stopped taking Lyrica will restart 100 mg po BID Assessment & Plan (06/17/2023 2:11 PM EST): Pt with c/o feeling like at night she keeps wanting to move her legs and c/o burning discomfort on both legs and feet Etiology ? Neuropathy ? RLS / Plan: NCS Liver lesion 06/17/2023 Assessment & Plan (06/17/2024 2:49 PM EST): Recent CT done by Urology showed: 1.1 cm liver lesion MRI recommended MRI 07/09/2023 showed: Likely benign 1.1 cm septated left hepatic lobe cyst. No other liver lesion identified however recommend correlation with any outside prior imaging. Liver is mildly enlarged measuring 18.7 cm in span. Trace simple free fluid in the pelvis. Assessment & Plan (08/19/2023 1:24 PM EDT): Recent CT done by Urology showed: 1.1 cm liver lesion MRI recommended MRI 07/09/2023 showed: Likely benign 1.1 cm septated left hepatic lobe cyst. No other liver lesion identified however recommend correlation with any outside prior imaging. Liver is mildly enlarged measuring 18.7 cm in span. Trace simple free fluid in the pelvis. 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 Work up in progress Tinnitus of both ears 01/16/2023 Assessment & Plan (11/27/2023 2:42 PM EDT): Pt with previous c/o tinnitus with associated vertigo, using Meclizine PRN prescribed by Neurology Evaluated by ENT ( [facility]) last seen 11/26/2023 They obtained a brain MRI and IACs at [facility] ) that was read as normal for age. They recommended to reduce the meclizine and vestibular therapy but patient declined. They told her to continue to work with her neurologist. Assessment & Plan (06/17/2023 2:09 PM EST): Pt with previous c/o tinnitus with associated vertigo, using Meclizine PRN prescribed by Neurology Last visit referred to ENT for evaluation. Pt has an appointment in August 2023 Assessment & Plan (01/16/2023 3:42 PM EDT): Pt with c/o tinnitus with associated vertigo, using Meclizine PRN prescribed by Neurology Plan: will refer to ENT evaluation BRBPR (bright red blood per rectum) 08/06/2022 Assessment & Plan (08/06/2022 12:07 PM EDT): New onset, Likely hemorrhoids, lst colonoscopy 2013, recommended sit baths, Proctosol cream, CBC, Pt already has follow up with GI for next month Preventative health care 08/06/2022 Assessment & Plan (06/17/2024 2:44 PM EST): Mammogram: 03/14/2023 Normal Pap Smear: HPV neg, NILM, 04/03/[address] Lovett [facility] Colonoscopy: 08/17/2013 Dr. Smith. Repeat 03/09/2024 Dr Kaba at [facility] Normal aside from hemorrhoids, 10 yr follow up recommended Vaccines: Td: 06/07/2011 Declines booster Dexa scan: 05/25/2010. Assessment & Plan (11/27/2023 2:55 PM EDT): Mammogram: 03/14/2023 Normal Pap Smear: HPV neg, NILM, 04/03/[address] Lovett [facility] Colonoscopy: 08/17/2013 Dr. Smith. Scheduled for Feb 2024 for a repeat. Vaccines: Td: 06/07/2011 Declines booster Dexa scan: 05/25/2010. Assessment & Plan (01/16/2023 3:01 PM EDT): Mammogram: 03/11/2022 BIRADS 3, due Feb 2023 Pap Smear: HPV neg, NILM, 04/03/[address] Lovett [facility] Colonoscopy: 08/17/2013 Dr. Smith Vaccines: Td: 06/07/2011 Dexa scan: 05/25/2010. Assessment & Plan (08/06/2022 2:21 PM EDT): Mammogram: 03/11/2022 BIRADS 3, due Feb 2023 Pap Smear: HPV neg, NILM, 04/03/[address] Lovett [facility] Colonoscopy: 08/17/2013 Dr. Smith Vaccines: Td: 06/07/2011 Dexa scan: 05/25/2010. Chronic neck pain 08/06/2022 Assessment & Plan (08/06/2022 2:28 PM EDT): Currently not complaining previously pt came in with c/o persistent neck pain, pt completed PT with no good results. Pt described the pain as intensity 6/10 with radiation to both arms. MRI of cervical spine done 08/23/2018 that showed: broad-based posterior disc protrusion, slightly more prominent on the right at C5-C6. There is no spinal cord compression or central stenosis. There are uncovertebral osteophytes and there is moderate left and mild right foraminal narrowing. Milder spondylitic changes are demonstrated at other levels. There is no spinal cord compression and spinal cord signal appears normal. Plan: Continue with Pain, control and muscle relaxant previously she was referred to acupuncture as well Chronic leukopenia 08/06/2022 Assessment & Plan (01/06/2024 10:16 AM EDT): Evaluated by Hematology, last seen 07/05/2019 , work up negative so far. They recommended prn f/u Repeat CBC Assessment & Plan (08/06/2022 2:32 PM EDT): Evaluated by Hematology, last seen 07/05/2019 , work up negative so far. They recommended prn f/u Bleeding gums 05/03/2022 Dental calculus 05/03/2022 Bronchiectasis without complication 04/16/2022 Assessment & Plan (06/17/2024 2:50 PM EST): Seen by Pulmonary Dr Hopson 06/26/2023, recommended repeat CT in December 2023 Done showed: Nonspecific, subcentimeter, noncalcified pulmonary nodules. Slightly smaller since prior examination. Continuous follow-up. Focal hypodensity, left hepatic lobe. Of note pt had MRI Liver 07/09/2023 showed: Likely benign 1.1 cm septated left hepatic lobe cyst. No other liver lesion identified however recommend correlation with any outside prior imaging. Liver is mildly enlarged measuring 18.7 cm in span. Trace simple free fluid in the pelvis. Assessment & Plan (11/27/2023 2:48 PM EDT): Seen by Pulmonary 06/26/2023, recommended repeat CT in December 2023 Assessment & Plan (04/16/2022 1:14 PM EST): Chest CT 09/26/2021 showed: There is focal bronchiectasis, bronchial wall thickening and bronchial soft tissue opacification in the right upper lobe Seen by Pulmonary 02/13/2022, recommended PFTs and repeat CT in 12 months (December 2022) Chronic right shoulder pain 04/16/2022 Assessment & Plan (08/06/2022 9:06 AM EDT): Hx of rotator cuff injury, c/o worsening pain, would like to try a steroid injection that in the past was beneficial Previous visit she was referred to [facility]. Pt tells me she was seen and received a steroid injection Assessment & Plan (04/16/2022 1:24 PM EST): Hx of rotator cuff injury, c/o worsening pain, would like to try a steroid injection that in the past was beneficial Will refer to [facility] Donte toenail 04/16/2022 Assessment & Plan (03/02/2024 2:48 PM EST): S/p removal by Dr. Mack Perdue Assessment & Plan (01/06/2024 10:17 AM EDT): Previously referred to podiatry but patient unable to see them due to the fact thay they had no automotive electrician. Pt is requesting to have the toenail completely removed by a local provider Plan:Will refer to local general surgeon Assessment & Plan (04/16/2022 1:25 PM EST): Will refer to podiatry History of cholecystectomy 06/22/2013 Urge incontinence of urine 06/22/2013 Assessment & Plan (01/16/2023 3:38 PM EDT): Under the care of Urology last seen 10/03/2021 Assessment & Plan (08/06/2022 2:23 PM EDT): Under the care of Urology last seen 10/03/2021 Anxiety 01/14/2012 Assessment & Plan (08/06/2022 2:34 PM EDT): Doing well Pt has a Hx of severe anxiety. follows at [facility]. On Klonopin 0.5 mg po qd prn for anxiety. Chronic low back pain 01/14/2012 Assessment & Plan (08/06/2022 2:24 PM EDT): follows at [facility], receives epidural injections intermittently. Fibromyalgia 01/14/2012 Assessment & Plan (11/27/2023 2:51 PM EDT): Evaluated by Rheumatology 06/26/2021 Pt with persistent c/o intermittent pain and swelling on most of her joints, hands, knees, elbows, shoulders' initial work up included a CBC, SONYA, RF, ESR, U/A all within normal limits Tried in the past Gabapentin with no good results I recommended Lyrica 100 mg po BID. Pt tells me insurance denied. Will go for a PA Assessment & Plan (08/19/2023 1:33 PM EDT): Evaluated by Rheumatology 06/26/2021 Pt with persistent c/o intermittent pain and swelling on most of her joints, hands, knees, elbows, shoulders' initial work up included a CBC, SONYA, RF, ESR, U/A all within normal limits On Lyrica 100 mg po BID Assessment & Plan (08/06/2022 2:26 PM EDT): Evaluated by Rheumatology 06/26/2021 Pt with persistent c/o intermittent pain and swelling on most of her joints, hands, knees, elbows, shoulders' initial work up included a CBC, SONYA, RF, ESR, U/A all within normal limits On Lyrica 100 mg po BID Assessment & Plan (04/16/2022 1:12 PM EST): Of Note pt had a Chest CT on 10/26/2010 that showed a 4 mm nodule in the left lower lobe. This was done on 01/21/2012 and was stable and unchanged 1 year f/u was recommended. This was done on: 04/19/2013 and it was unchanged NO further imaging was recommended Hypothyroidism 01/14/2012 Assessment & Plan (11/27/2023 2:44 PM EDT): Pt here for a f/u Most recent TSH 08/19/2023 normal at 2.02 Used to follow with Endocrinology at [facility] Endocr[facility]ology. She is on Synthroid 88 mcg po daily. Plan: Continue with current regimen Pt tells me the Business Applications Manager already told her there was no need to f/u with them to only follow with us Assessment & Plan (08/19/2023 1:26 PM EDT): Pt here for a f/u Most recent TSH 06/18/2023 elevated at 9.46 Used to follow with Endocrinology at [facility] Endocrinology. She is on Synthroid 88 mcg po daily. Plan: Will repeat and if still elevated will increase it to 100 mcg po daily Pt tells me the Business Applications Manager already told her there was no need to f/u with them to only follow with us Plan: continue current regimen. Will repeat TSH Assessment & Plan (06/17/2023 2:07 PM EST): Pt here for a f/u Most recent TSH 01/27/2023 elevated at 6.02 Used to follow with Endocrinology at [facility] Endocrinology. She was on Synthroid 75 mcg po daily. I increased it to 88 mcg po daily Pt tells me the Business Applications Manager already told her there was no need to f/u with them to only follow with us Plan: continue current regimen. Will repeat TSH Assessment & Plan (01/16/2023 3:46 PM EDT): Pt here for a f/u Most recent TSH 03/27/2022 wnl Used to follow with Endocrinology at [facility] Endocrinology. She is currently on Synthroid 75 mcg po daily. Pt tells me the Business Applications Manager already told her there was no need to f/u with them to only follow with us Plan: continue current regimen. Will repeat TSH Assessment & Plan (08/06/2022 2:27 PM EDT): Pt here for a f/u Most recent TSH 03/27/2022 wnl Used to follow with Endocrinology at [facility] Endocrinology. She is currently on Synthroid 75 mcg po daily. Pt tells me the Business Applications Manager already told her there was no need to f/u with them to only follow with us Plan: continue current regimen Irritable bowel syndrome 01/14/2012 Assessment & Plan (11/27/2023 2:35 PM EDT): Pt here for a f/u Pt on Viberzi (prescribed by GI ) for persistent watery diarrhea ( pt is s/p CCY ) . Abd U/S showed fatty liver Pt under the care of GI. Last seen 08/22/2023 Assessment & Plan (08/06/2022 2:23 PM EDT): Pt here for a f/u Pt reports that she has had excellent results with Viberzi (prescribed by GI ) for persistent watery diarrhea ( pt is s/p CCY ) . Abd U/S showed fatty liver Pt under the care of GI. Migraine 01/14/2012 Assessment & Plan (06/17/2023 1:29 PM EST): currently not complaining Previous extensive diagnostic work up included an MRI of her brain done on 09/17/2007 which was wnl. Uses amitriptyline 75 mg po daily, propranolol 20 mh po BID as a prophylactic agent and Fioricet prn for headaches. Pt was evaluated by a neurosurgeon Dr Janet Lopez who repeated her MRI of the brain and aside from a chiari malformation did not see any other problems. She recommended a Neurology evaluation. Pt was seen by Dr Jorje Bates last 12/28/2014 Assessment & Plan (08/06/2022 2:34 PM EDT): currently not complaining Previous extensive diagnostic work up included an MRI of her brain done on 09/17/2007 which was wnl. Uses amitriptyline 75 mg po daily, propranolol 20 mh po BID as a prophylactic agent and Fioricet prn for headaches. Pt was evaluated by a neurosurgeon Dr Janet Lopez who repeated her MRI of the brain and aside from a chiari malformation did not see any other problems. She recommended a Neurology evaluation. Pt was seen by Dr Jorje Bates last 12/28/2014 Encounters Date Type Department Care Team Description 06/28/2024 Telephone [facility] [address] [place] [id number] Anthony Moreno MD ER Follow-up; Referral 06/25/2024 Orders Only [facility] External Provider, [facility] 06/25/2024 Population Health Risk Score [facility] ([facility] Department [address] [place] [phone] Provider, Population Health Generic 06/17/2024 2:30 PM EST Office Visit [facility] [address] [place] [address] Anthony Moreno MD Routine physical examination (Primary Dx); Postmenopausal bleeding; Bronchiectasis without complication (CMS/HCC); Liver lesion; Overweight (BMI 25.0-29.9); Peripheral polyneuropathy; Vascular insufficiency; Preventative health care 06/17/2024 Refill [facility] [address] [place] [address] Anthony Moreno MD Peripheral polyneuropathy 06/17/2024 Travel 06/14/2024 Refill [facility] [address] [place] [address] Anthony Moreno MD 06/08/2024 Patient Outreach [facility] [place] [address] Anthony Moreno MD Pre-visit Planning (SDOH Screening negative and Tobacco screening negative) 06/03/2024 Telephone [facility] [place] [address] Anthony Moreno MD Chart Prep 05/14/2024 Orders Only GENERIC EXTERNAL DATA DEPARTMENT Provider, Generic External Data 05/11/2024 Refill [facility] [place] [address] Anthony Moreno MD 05/10/2024 [address] [place] [address] Anthony Moreno MD 04/13/2024 Patient Outreach [address] [id number] Anthony Moreno MD Care Coordination ([facility]/graduate) 04/13/2024 Telephone [facility] [place] [address] Leonel Rasmussen RN Care Management ([facility]- f/u call) 04/09/2024 Orders Only [facility] [place] [address] Anthony Moreno MD 04/01/[address] [address] Leonel Rasmussen, RN Care Management ([facility]- f/u call) from Last 3 Months Immunizations Name Administration Dates Next Due Pfizer Covid-19 Vaccine 12+ 10/28/2020, 1 TD (adult), 2 Lf tetanus tox oid, preservative free, adsorbed 06/07/2011,07/19/1997 Social History Tobacco Use Types Packs/Day Years Used Date Smoking Tobacco: Never Passive Smoke Exposure: Never Smokeless Tobacco: Never Tobacco Cessation:Counseling Given: Not Answered Alcohol Use Standard Drinks/Week Comments Defer 0 (1 standard drink = 0.6 oz pur e alcohol) Depression Answer Date Recorded Patient Health Questionnaire-9 Score 5 06/17/2024 Patient Health Questionnaire-9 Score 5 06/17/2024 Last PHQ-9: Questionnaire Data Not on file 0 06/17/2024 Housing Stability Answer Date Recorded What is your housing situation today? I have malachi live 01/27/[address] you li ve. Do you have problems with any of the following? None of the above 01/27/2023 Food Insecurity Answer Date Recorded Within the past 12 months, y ou worried that your food would run out before you got money to buy more: Never True 01/06/2024 Within the past 12 months,th e food you bought just didn't last and you didn't have enough money to get more: Never True Transportation Answer Date Recorded In the past 12 months, has l ack of transportation kept you from medical appts, meetings, work or from getting things needed for daily living? No 01/27/2023 Utilities Answer Date Recorded In the past 12 months, has t he electric, gas, oil or water company threatened to shut off services in your home? No 01/27/2023 Depression Answer Date Recorded Patient Health Questionnaire-2 Score 2 06/17/2024 Internet Access Answer Date Recorded Internet Access Q1 Yes 06/08/2024 Internet Access Q2 I do not want or need it 05/16 Comments Unknown Sex and Gender Information Value Date Recorded Sex Assigned at Female 02/11/2022 10:14 AM EDT Legal Sex Female 10:14 AM EDT Gender Identity Female 02/11/2022 10:14 AM EDT Sexual Orientation Choose not to disclose 2021 10:14 AM EDT Last Filed Vital Signs Vital Sign Reading Time Taken Comments Blood Pressure 130/71 06/17/2024 2:23 PM EST Pulse 65 06/17/2024 2:23 PM EST Temperature 35.9 ??C (96.6 ??F) 06/17/2024 2:23 PM ES T Respiratory Rate 20 06/17/2024 2:23 PM EST Oxygen Saturation 98% 06/17/2024 2:23 PM EST Inhaled Oxygen Concentration - - Weight 66.2 kg (146 lb) 06/17/2024 2:23 PM EST Height 154.9 cm (5' 1 ) 06/17/2024 2:23 PM EST Body Mass Index 27.59 06/17/2024 2:23 PM EST Plan of Treatment Upcoming Encounters Date Type Department Care Team (Late st Contact Info) Description 07/05/2024 10:00 AM EDT Office Visit [facility] [address] [place] [address] Ev, Yary [address] [place] [address] Health Maintenance Due Date Last Done Comments CT Colonography 1965 FIT DNA/Cologuard 1965 FIT 1965 FOBT 1965 HIV Screening 1965 Sigmoidoscopy 1965 Hepatitis A Vaccines (1 of 2 - Risk 2-dose series) 1982 DTaP/Tdap/Td Vaccines (1 - Tdap) 06/08/2011 06/07/2011, 07/19/1997 Pneumococcal Vaccine: 50+ Years (1 of 1 - PCV) 2013 Zoster Vaccines (1 of 2) 2013 Hepatitis B Vaccines (1 of 3 - Risk 3-dose series) 2023 RSV Patients and Patients Aged 60 years or older (1 - Risk 60-74 years 1-dose series) 2023 Dental Oral Exam 09/18/2023 03/18/2023, 05/03/2022 Dental X-Ray: Full Mouth 11/22/2023 11/20/2020 COVID-19 Vaccine ( season) 2023 10/28/2020, 10/06/2020 Influenza Vaccine (#1) 2023 Dental X-Ray: Bitewings 02/02/2024 01/31/2023, 05/03 Cervical Cancer Screening 04/03/2024 HPV/Cotest 04/03/2024 04/03/2021, 04/03/2021 Dental Prophylaxis 07/05/2024 01/05/2024, 1 , 05/03/2022 Alcohol/Substance Use Screening 03/02/2025 03/02/2024 SDOH Screening 06/08/2025 06/08/2024 Depression Screening 06/17/2025 06/17/2024, 06/18/19 Tobacco Screening 06/17/2025 06/17/2024 Mammogram 04/09/2026 04/09/2024, 03/15, 03/16/2024, Additional history exists Pap Smear 03/17/2027 03/17/2024 Colonoscopy 03/09/2034 03/09/2024, 08/17/2013 Colorectal Cancer Screening 03/09/2034 Hepatitis C Screening Completed 01/27/2023 HIB Vaccines Aged Out No longer eligi ble based on patient's age to complete this topic HPV Vaccines Aged Out No longer eligi ble based on patient's age to complete this topic IPV Vaccines Aged Out No longer eligi ble based on patient's age to complete this topic Meningococcal Vaccine Aged Out No milagro maria del carmen eligible based on patient's age to complete this topic RSV under 20 months Aged Out No longe r eligible based on patient's age to complete this topic Rotavirus Vaccines Aged Out No longer eligible based on patient's age to complete this topic Procedures Procedure Name Priority Date/Time Associated Diagnosis Comments CT CERVICAL SPINE WO CONTRAST Routine 06/25/2024 12:30 PM EDT HEMATOXYLIN AND EOSIN STAIN Routine 05/14/2024 9:28 AM EST BI US BREAST LIMITED BILATERAL Routine 04/09/2024 10:45 AM EST BI MAMMOGRAM DIAGNOSTIC TOMOSYNTHESIS BILATERAL Routine 04/09/2024 10:15 AM EST PAP SMEAR Routine 03/17/2024 9:55 AM EST HM COLONOSCOPY Routine 03/09/2024 9:14 AM EST PROPHYLAXIS - ADULT Routine 01/05/2024 8 :00 AM EDT Dental calculus Bleeding gums PERIODIC ORAL EVALUATION - ESTABLISHED PATIENT Routine 03/18/2023 3:30 PM EST BITEWINGS - 4 RADIOGRAPHIC IMAGES Routine 01/31/2023 8:00 AM EDT HEPATITIS C AB W/REFL TO HCV RNA, QN, PCR Routine 01/27/2023 1:47 PM EDT Routine physical examination Preventative health care SigridZZ HISTORICAL HPV E6/E7 RFLX MIKAL 16 18/45 Routine 04/03/2021 3:12 PM EST from Last 3 Months or Most Recently Relevant to Health Maintenance Results * CT Cervical Spine w/o Contrast (06/25/2024 12:30 PM EDT) Anatomical Region Laterality Modality Spine, C-spine Computed Tomogra phy 06/25/2024 12:3 0 PM EDT Narrative 06/25/2024 1:01 PM EDT ? [facility] ?[address] ?[place] [address] ? CT Scan Report ? Signed ? Patient: Steffanie Esquivel ?MR#: MM ?? [id number] ? : 1965 ?Acct:[id number] ? Age/Sex: 59 / F ?ADM Date: 06/25/24 ? Loc: HO.ED ? Attending Dr: ? Ordering Physician: Saloni Rodriguez NP ?? Date of Service: 06/25/24 ?? Procedure(s): CT cervical spine wo IV con ?? Accession Number(s): [id number] ? cc: Anthony Blevins MD; Saloni Rodriguez NP ? Report Number: ?? [id number]: Total DLP = ??361.00 mGy-cm ?? EXAMINATION: CT CERVICAL SPINE WITHOUT IV CONTRAST ? HISTORY: neck and R arm pain. ? TECHNIQUE: ?? Helical CT of the cervical spine was performed per standard ?? departmental protocol. Coronal and sagittal reformatted images were ?? also evaluated. One or more of the following techniques was used for ?? dose reduction: Automated exposure control, adjustment of the mA and/or ?? kV according to patient size, use of iterative reconstruction technique. ? DLP: 361 mGy-cm ? COMPARISON: There are no prior studies for comparison. ? FINDINGS: ? CERVICAL SPINE: ??Osseous mineralization is normal. The vertebral bodies ?? maintain normal height without evidence of fracture or subluxation. ?? There is straightening of the normal cervical lordosis. There is mild ?? to moderate degenerative disc disease at the C5-6 level with disc space ?? narrowing and osteophyte formation. There is uncovertebral joint ?? hypertrophy at this level causing probable bilateral neural foraminal ?? stenosis. The remaining intervertebral disc spaces are maintained. ?? Evaluation for disc pathology is limited by lack of intrathecal ?? contrast material. ? BRAIN: ??The visualized portion of the brain is unremarkable. ? SINUSES: The visualized paranasal sinuses, mastoid air cells and middle ?? ear cavities are unremarkable. ? LUNG APICES: The visualized lung apices are clear. ? SOFT TISSUES: ??The visualized paraspinal soft tissues are unremarkable. ? CT/CT cervical spine wo IV con ?? IMPRESSION: ?? Straightening of the normal cervical lordosis. Mild to moderate ?? degenerative disc disease at the C5-6 level as described. ? Electronically signed by: ??Abad Parker MD ??06/25/2024 12:58 PM EDT ? Dictated By: ?Abad Parker MD ? Signed By: ?<Electronically signed by Abad Parker MD in OV> ?06/25/24 1258 ? DD/ 1230 ? TD/TT: 06/25/24 1249 ? Mix Maker: ? Procedure Note Olesya, Lucía - 06/25/[address] [place] [address] [address] Scan Report Signed Patient: Sourav James Ivgary#: MM [id number] : 1965Acct:[id number] Age/Sex: 59 / FADM Date: 06/25/24 Loc: HO.ED Attending Dr: Ordering Physician: Saloni Rodriguez NP Date of Service: 06/25/24 Procedure(s): CT cervical spine wo IV con Accession Number(s): [id number] cc: Anthony Blevins MD; Saloni Rodriguez NP Report Number: [id number]: Total DLP = 361.00 mGy-cm EXAMINATION: CT CERVICAL SPINE WITHOUT IV CONTRAST HISTORY: neck and R arm pain. TECHNIQUE: Helical CT of the cervical spine was performed per standard departmental protocol. Coronal and sagittal reformatted images were also evaluated. One or more of the following techniques was used for dose reduction: Automated exposure control, adjustment of the mA and/or kV according to patient size, use of iterative reconstruction technique. DLP: 361 mGy-cm COMPARISON: There are no prior studies for comparison. FINDINGS: CERVICAL SPINE: Osseous mineralization is normal. The vertebral bodies maintain normal height without evidence of fracture or subluxation. There is straightening of the normal cervical lordosis. There is mild to moderate degenerative disc disease at the C5-6 level with disc space narrowing and osteophyte formation. There is uncovertebral joint hypertrophy at this level causing probable bilateral neural foraminal stenosis. The remaining intervertebral disc spaces are maintained. Evaluation for disc pathology is limited by lack of intrathecal contrast material. BRAIN: The visualized portion of the brain is unremarkable. SINUSES: The visualized paranasal sinuses, mastoid air cells and middle ear cavities are unremarkable. LUNG APICES: The visualized lung apices are clear. SOFT TISSUES: The visualized paraspinal soft tissues are unremarkable. CT/CT cervical spine wo IV con IMPRESSION: Straightening of the normal cervical lordosis. Mild to moderate degenerative disc disease at the C5-6 level as described. Electronically signed by: Abad Parker MD 06/25/2024 12:58 PM EDT Dictated By: Abad Parker MD Signed By: <Electronically signed by Abad Parker MD in OV> 06/25/24 1258 DD/ 1230 TD/TT: 06/25/24 1249 Mix Maker: [facility] External Provider IMG CT PROCEDURES Final Result * Hematoxylin and Eosin Stain (05/14/2024 9:28 AM EST) 05/14/2024 9:28 AM EST 05/14/2024 11:10 AM EST [facility] - 05/17/2024 5:33 PM EST ----- ------- Name: Steffanie Esquivel ? Age/Sex: 59/F ? : 1965 Unit#: [id number] ?? Attend Dr: Gary Lovett MD ?Re05/14/24 ?Status: DEP SDC ? Location: HO.SSS ?Disch: ? ----- ------- SPEC : [id number] ?RECD: 05/14/24 ? STATUS: ??SOUT ? REQ NUM: [id number] ? RAIMUNDO: 05/14/24 ? SUBM DR: Gary Lovett MD ? ENTERED: ??05/14/24 ?SP TYPE: Surgical ? OTHR DR: Anthony Blevins MD ?? ORDERED: ??HE Stain/6, Gross Micro L4/3 ? Diagnosis ?? A. ??Endometrium, polyp/submucosal myoma, biopsy: ??Fragments of endometrial polyp with ?? cystic atrophy; fragments of unremarkable smooth muscle possibly representing myometrium ?? or leiomyoma. ? B. ??Endometrium, curettage: ??Fragments and strips of inactive endometrium; negative for ?? atypia, hyperplasia or malignancy. ? C. ??Endocervix, curettage: ??Few fragments of endocervical glands and squamous mucosa; ?? negative for squamous intraepithelial lesion. ?Clinical History Pre-Op Dx: ??Postmenopausal bleeding Post-Op Dx: ??Endometrial/submucosal myoma ?Microscopic Description Microscopic sections reviewed. ? Material Received ?? A. ??Endometrial polyp/submucosal myoma ?? B. ??EMC ?? C. ECC ? Gross Description Received in 3 parts. A. ??Received in formalin, in a cloth filtration device, labeled ?endometrial polyp/submucosal myoma? are fragments of rubbery, white and pink-white tissue forming an aggregate measuring 2.2 x 1.9 x 0.3 cm which is wrapped in lens paper and entirely submitted for microscopic examination, multiple pieces in cassette A. B. Received in formalin, on Telfa labeled ?EMC? are fragments of red- pink tissue mixed with mucus and clotted blood forming an aggregate measuring 1.2 x 0.7 x 0.2 cm which is wrapped in lens paper and entirely submitted for microscopic examination, multiple pieces in cassette B. C. Received in formalin labeled ?ECC? are scant fragments of pink white soft tissue mixed with mucus and clotted blood forming an aggregate measuring 0.5 x 0.4 x 0.1 cm which is wrapped in lens paper and entirely submitted for microscopic examination, multiple pieces in ? CONTINUED ON NEXT PAGE ----- ------- Name: Steffanie Esquivel ? Age/Sex: 59/F ? : 1965 Unit#: [id number] ?? Attend Dr: Gary Lovett MD ?Re05/14/24 ?Status: DEP SDC ? Location: HO.SSS ?Disch: ? ----- ------- SPEC : [id number] ?RECD: 05/14/24 ? STATUS: ??SOUT ? REQ NUM: [id number] ? RAIMUNDO: 05/14/24 ? SUBM DR: Gary Lovett MD ? ENTERED: ??05/14/24 ?SP TYPE: Surgical ? OTHR DR: Anthony Blevins MD ?? ORDERED: ??HE Stain/6, Gross Micro L4/3 ? Gross Description ?(Continued) cassette C. smc Copies To: ?? Anthony Blevins MD ?? [facility] ?? [address] ?? [place] [address] ?? [phone] ?? Gary Lovett MD ?? [facility] ?? [address] ?? [place] [address] ?? [phone] ----- ------- Signed (signature on file) Edwige Andrew MD 05/17/24 7525 ? ----- ------- ? END OF REPORT ? us Generic External Data Provider LAB BLOOD ORDERAB LES Final Result [facility] [address] [facility] [place] [address] [phone] * BI US Breast Limited Bilateral (04/09/2024 10:45 AM EST) Anatomical Region Laterality Modality Breast Bilateral Ultrasound 04/09/2024 10:4 5 AM EST Narrative 04/09/2024 11:01 AM EST ? [facility] ? [address] ?[place] [address] ? Ultrasound Report ? Signed ? Patient: Steffanie Esquivel ?MR#: MM ?? [id number] ? : 1965 ?Acct:[id number] ? Age/Sex: 59 / F ?ADM Date: 04/09/24 ? Loc: HO.MAMMO ? Attending Dr: Anthony Blevins MD ? Ordering Physician: Anthony Blevins MD ?? Date of Service: 04/09/24 ?? Procedure(s): US breast BI limited mamm only ?? Accession Number(s): [id number] ? cc: Anthony Blevins MD ? EXAMINATION: ?? MM DIAGNOSTIC DIGITAL BREAST TOMOSYNTHESIS, BILATERAL ?? Bilateral Limited ultrasound. ?? CLINICAL INFORMATION: ? Call back from screening for bilateral upper outer quadrant focal ?? asymmetries. ? COMPARISON: ?? Mammography: Comparison is made with relevant prior exams. ? TECHNIQUE: ?? Digital breast mammography with tomosynthesis is performed in both the ?? craniocaudal and mediolateral oblique views along with computer-aided ?? detection (CAD). ? Bilateral Limited ultrasound. ? FINDINGS: ?? The breasts are extremely dense, which lowers the sensitivity of ?? mammography (ACR BI-RADS breast composition Category d). ? Left: ?? Focal asymmetry in the upper outer breast does not persist on ?? additional imaging projections and likely represented overlapping ?? breast tissue. ?? No suspicious calcifications or other abnormal findings. ? Targeted color Doppler ultrasound in the left upper outer quadrant ?? demonstrates normal fibroglandular breast tissue. There is no ?? sonographic abnormality. ? Right: ?? Focal asymmetry in the upper outer quadrant does not persist on ?? additional imaging projections and likely represented overlapping ?? breast tissue. ? Targeted color Doppler ultrasound in the upper outer quadrant ?? demonstrates normal fibroglandular breast tissue. No sonographic ?? abnormality. ? Results are provided to the patient at time of visit by the ?? technologist. ? US/US breast BI limited mamm only ?? IMPRESSION: ?? Bilateral breasts: Negative. ? ASSESSMENT: ? BI-RADS BI-RADS 1 - Negative ? RECOMMENDATION: ?? 1 year F/U ? This patient's information was entered into a reminder system with a ?? target due date for their next mammogram. ? Electronically signed by: ??Priya Self DO ??04/09/2024 10:58 AM EST ? Dictated By: ?Priya Self DO ? Signed By: ?<Electronically signed by Priya Self, DO in OV> ? 04/09/24 1058 ? DD/ 1045 ? TD/TT: 04/09/24 1057 ? Mix Maker: ? Procedure Note Lucía Dacosta - 04/09/2024 [facility] [address] [place] [address] Ultrasound Report Signed Patient: Steffanie EsquivelMR#: MM [id number] : 1965Acct:[id number] Age/Sex: 59 / FADM Date: 04/09/24 Loc: HO.MAMMO Attending Dr: Anthony Blevins MD Ordering Physician: Anthony Blevins MD Date of Service: 04/09/24 Procedure(s): US breast BI limited mamm only Accession Number(s): [id number] cc: Anthony Blevins MD EXAMINATION: MM DIAGNOSTIC DIGITAL BREAST TOMOSYNTHESIS, BILATERAL Bilateral Limited ultrasound. CLINICAL INFORMATION: Call back from screening for bilateral upper outer quadrant focal asymmetries. COMPARISON: Mammography: Comparison is made with relevant prior exams. TECHNIQUE: Digital breast mammography with tomosynthesis is performed in both the craniocaudal and mediolateral oblique views along with computer-aided detection (CAD). Bilateral Limited ultrasound. FINDINGS: The breasts are extremely dense, which lowers the sensitivity of mammography (ACR BI-RADS breast composition Category d). Left: Focal asymmetry in the upper outer breast does not persist on additional imaging projections and likely represented overlapping breast tissue. No suspicious calcifications or other abnormal findings. Targeted color Doppler ultrasound in the left upper outer quadrant demonstrates normal fibroglandular breast tissue. There is no sonographic abnormality. Right: Focal asymmetry in the upper outer quadrant does not persist on additional imaging projections and likely represented overlapping breast tissue. Targeted color Doppler ultrasound in the upper outer quadrant demonstrates normal fibroglandular breast tissue. No sonographic abnormality. Results are provided to the patient at time of visit by the technologist. US/US breast BI limited mamm only IMPRESSION: Bilateral breasts: Negative. ASSESSMENT: BI-RADS BI-RADS 1 - Negative RECOMMENDATION: 1 year F/U This patient's information was entered into a reminder system with a target due date for their next mammogram. Electronically signed by: Priya Self DO 04/09/2024 10:58 AM EST Dictated By: Priya Self DO Signed By: <Electronically signed by Priya Self DO in OV> 04/09/24 1058 DD/ 1045 TD/TT: 04/09/24 1057 Mix Maker: Anthony Muller MD [facility] PROCEDURES Fin al Result * BI Mammogram Diagnostic Tomosynthesis Bilateral (04/09/2024 10:15 AM EST) Anatomical Region Laterality Modality Breast Bilateral Mammography 04/09/2024 10:1 5 AM EST Narrative 04/09/2024 11:01 AM EST ? [facility] ? [address] ?[place] [address] ? Mammography Report ? Signed ? Patient: Steffanie Esquivel ?MR#: MM ?? [id number] ? : 1965 ?Acct:[id number] ? Age/Sex: 59 / F ?ADM Date: 12/27/24 ? Loc: HO.MAMMO ? Attending Dr: Anthony Blevins MD ? Ordering Physician: Anthony Blevins MD ?Resu ?? lts: 1Negative ? Date of Service: 04/09/24 ?Follow Up: 1 Year From Orig ?? inal Mammogram ? Procedure(s): MM tomosynthesis diagnostic BI ?? Accession Number(s): [id number] ? cc: Anthony Blevins MD ? EXAMINATION: ?? MM DIAGNOSTIC DIGITAL BREAST TOMOSYNTHESIS, BILATERAL ?? Bilateral Limited ultrasound. ?? CLINICAL INFORMATION: ? Call back from screening for bilateral upper outer quadrant focal ?? asymmetries. ? COMPARISON: ?? Mammography: Comparison is made with relevant prior exams. ? TECHNIQUE: ?? Digital breast mammography with tomosynthesis is performed in both the ?? craniocaudal and mediolateral oblique views along with computer-aided ?? detection (CAD). ? Bilateral Limited ultrasound. ? FINDINGS: ?? The breasts are extremely dense, which lowers the sensitivity of ?? mammography (ACR BI-RADS breast composition Category d). ? Left: ?? Focal asymmetry in the upper outer breast does not persist on ?? additional imaging projections and likely represented overlapping ?? breast tissue. ?? No suspicious calcifications or other abnormal findings. ? Targeted color Doppler ultrasound in the left upper outer quadrant ?? demonstrates normal fibroglandular breast tissue. There is no ?? sonographic abnormality. ? Right: ?? Focal asymmetry in the upper outer quadrant does not persist on ?? additional imaging projections and likely represented overlapping ?? breast tissue. ? Targeted color Doppler ultrasound in the upper outer quadrant ?? demonstrates normal fibroglandular breast tissue. No sonographic ?? abnormality. ? Results are provided to the patient at time of visit by the ?? technologist. ? MM/MM tomosynthesis diagnostic BI ?? IMPRESSION: ?? Bilateral breasts: Negative. ? ASSESSMENT: ? BI-RADS BI-RADS 1 - Negative ? RECOMMENDATION: ?? 1 year F/U ? This patient's information was entered into a reminder system with a ?? target due date for their next mammogram. ? Electronically signed by: ??Priya Self DO ??04/09/2024 10:58 AM EST ? Dictated By: ?Priya Self DO ? Signed By: ?<Electronically signed by Priya Self, DO in OV> ? 04/09/24 1058 ? DD/ 1015 ? TD/TT: 04/09/24 1030 ? Mix Maker: ? Procedure Note Donbelgicainterpreter, Image - 04/09/2024 [facility] [address] [place] [address] Mammography Report Signed Patient: Steffanie EsquivelMR#: MM [id number] : 1965Acct:[id number] Age/Sex: 59 / FADM Date: 04/09/24 Loc: SHAV[facility] Attending Dr: Anthony Blevins MD Ordering Physician: Anthony Blevins MDResu lts: 1Negative Date of Service: 04/09/24Follow Up: 1 Year From Orig inal Mammogram Procedure(s): MM tomosynthesis diagnostic BI Accession Number(s): [id number] cc: Anthony Blevins MD EXAMINATION: MM DIAGNOSTIC DIGITAL BREAST TOMOSYNTHESIS, BILATERAL Bilateral Limited ultrasound. CLINICAL INFORMATION: Call back from screening for bilateral upper outer quadrant focal asymmetries. COMPARISON: Mammography: Comparison is made with relevant prior exams. TECHNIQUE: Digital breast mammography with tomosynthesis is performed in both the craniocaudal and mediolateral oblique views along with computer-aided detection (CAD). Bilateral Limited ultrasound. FINDINGS: The breasts are extremely dense, which lowers the sensitivity of mammography (ACR BI-RADS breast composition Category d). Left: Focal asymmetry in the upper outer breast does not persist on additional imaging projections and likely represented overlapping breast tissue. No suspicious calcifications or other abnormal findings. Targeted color Doppler ultrasound in the left upper outer quadrant demonstrates normal fibroglandular breast tissue. There is no sonographic abnormality. Right: Focal asymmetry in the upper outer quadrant does not persist on additional imaging projections and likely represented overlapping breast tissue. Targeted color Doppler ultrasound in the upper outer quadrant demonstrates normal fibroglandular breast tissue. No sonographic abnormality. Results are provided to the patient at time of visit by the technologist. MM/MM tomosynthesis diagnostic BI IMPRESSION: Bilateral breasts: Negative. ASSESSMENT: BI-RADS BI-RADS 1 - Negative RECOMMENDATION: 1 year F/U This patient's information was entered into a reminder system with a target due date for their next mammogram. Electronically signed by: Priya Self DO 04/09/2024 10:58 AM EST Dictated By: Priya Self DO Signed By: <Electronically signed by Priya Self DO in OV> 04/09/24 1058 DD/ 1015 TD/TT: 04/09/24 1030 Mix Maker: us Anthony Muller MD IM BI PROCEDURES Fin al Result * Pap Smear (03/17/2024 9:55 AM EST) 03/17/2024 9:55 AM EST 03/18/2024 8:20 AM EST [facility] - 03/24/2024 10:20 AM EST ----- ------- Name: Steffanie Esquivel ? Age/Sex: 59/F ? : 1965 Unit#: [id number] ?? Attend Dr: Gary Lovett MD ?Re03/17/24 ?Status: DEP REF ? Location: HO.LNP ?Disch: ? ----- ------- SPEC : [id number] ?RECD: 03/18/24 ? STATUS: ??SOUT ? REQ NUM: [id number] ? RAIMUNDO: 03/17/24 ? SUBM DR: Gary Lovett MD ? ENTERED: ??03/18/24 ?SP TYPE: Pap Smr ?OTHR DR: Anthony Blevins MD ?? ORDERED: ??Pap Smear ? Interpretation ?? Satisfactory for evaluation. ?? No endocervical cells seen. ?? Negative for intraepithelial lesion or malignancy. ? HPV High Risk: ??Negative ? HPV Genotyping 16: ??Negative ?? HPV Genotyping 18: ??Negative ? Note: ?? Abundant blood present. ?Clinical Information LMP: Postmenopausal Previous PAP test: Unknown date/findings Other history: Postmenopausal bleeding 3 ? Material Received ?? ThinPrep-Cervical Copies To: ?? Anthony Blevins MD ?? [facility] ?? [address] ?? [place] [address] ?? [phone] ?? Gary Lovett MD ?? [facility] ?? [address] ?? [place] [address] ?? [phone] ----- ------- Signed (signature on file) RYAN Candelario (ASCP) 03/24/24 1020 ? ----- ------- ? END OF REPORT ? us Generic External Data Provider LAB CYTOLOGY JHONNY MARTINES Final Result Performing Organization Address City/[facility]/ZIP Co de Phone Number [facility] [address] [place] [address] [phone] * Hm Colonoscopy (03/09/2024 9:14 AM EST) Colonoscopy Normal Normal 03/09/2024 9:14 AM EST Historical Provider HEALTH MAINTENANCE Final Result * Hepatitis C Antibody with Reflex to HCV, RNA, Quantitative, Real-Time PCR (01/27/2023 1:47 PM EDT) Pathologist [facility] Hepatitis C Antibody Nonreactive Nonreactive [facility] Comment:Antibodies to HCV no t detected; does not exclude early acuteHCV infection. Blood Venous blood specimen / Unknown 01/27/2023 1:47 PM EDT 01/27/2023 1:47 PM EDT Anthony Muller MD LAB BLOOD ORDERABLES Final Result Performing Organization Address [facility] Co de Phone Number [facility] [address] [place] [address] [phone] * HPV E6/E7 RFLX MIKAL 16 18/45 (04/03/2021 3:12 PM EST) HPV mRNA E6/E7 rflx Not Detected Not Detected [facility] Comment: Methodology: Electronics Engineering Manager-Mediated Amplification This assay detects E6/E7 viral messenger RNA (mRNA) from 14 high-risk HPV types (16,18,31,33,35,39,45,51,52,56,58,59,66,68). The analytical performance characteristics of this assay have been determined by [employer]. The modifications have not been cleared or approved by the FDA. This assay has been validated pursuant to the CLIA regulations and is used for clinical purposes. For additional information, please refer to http://education.Mobile Theory.FlatStack/faq/HYF160u2 (This link if provided for information/ educational purposes only.) THIS TEST WAS PERFORMED AT: [facility] [address] [place] [address] [address] [place], [place] ??[phone] FABRICIO SINHA MD 04/03/2021 3:12 PM EST Gary Lovett MD HISTORICAL/NON ORDERABLE LABS Fi nal Result [facility] [address] from Last 3 Months or Most Recently Relevant to Health Maintenance Insurance [facility] MEDICAID STAND ADULT C3 D[facility]AL-[facility] MEDICAID STAND ADULT Care Teams Drafter Patent Relationship Specialty Start Date End Date Anthony Moreno MD [address] [place] [id number] PCP - General Internal Medicine 03/07/14
--- OUTSIDE RECORDS SUMMARY | 2024-06-29 12:34 | XMS_ITS | Encounter Summary ---
Author Organization [employer] Address [address] [facility] 7t [place] [address] Care Team Providers Care Tunneller Name Role Phone Anthony Moreno MD Primary Care Provide r Reason for Visit * Reason Onset Date Comments Chart Prep 06/03/2024 Encounter Details Date Type Department Care Team ([facility] Contact Info) Description 06/03/2024 Telephone [facility] MED[facility]INE [address] [place], [place] [phone] Anthony Moreno MD [address] [place] [address] Chart Prep Social History Tobacco Use Types Packs/Day Years Used Date Smoking Tobacco: Never Passive Smoke Exposure: Never Smokeless Tobacco: Never Alcohol Use Standard Drinks/Week Comments Defer 0 (1 standard drink = 0.6 oz pur e alcohol) Depression Answer Date Recorded Patient Health Questionnaire-9 Score 1 08/19/2023 Patient Health Questionnaire-9 Score 1 08/19/2023 Last PHQ-9: Questionnaire Data Not on file 0 08/19/2023 Housing Stability Answer Date Recorded What is [...] Answer Date Recorded Patient Health Questionnaire-2 Score 0 08/19/2023 Internet Access Answer Date Recorded Internet Access Q1 No 01/06/2024 Internet Access Q2 I do not want or need it 12/14 Comments Unknown Sex and Gender Information Value Date Recorded Sex Assigned at Female 02/11/2022 10:14 AM EDT Legal Sex Female 10:14 AM EDT Gender Identity Female 02/11/2022 10:14 AM EDT Sexual Orientation Choose not to disclose 2021 10:14 AM EDT documented as of this encounter Miscellaneous Notes * Telephone Encounter - Dasha Mace [place] - 06/03/2024 11:50 AM EST Chart Prep Labs: not applicable Images: done Vaccines due: Covid Due, Tdap Due, Hep A Due, Hep B Due, PCV20 Due, Flu Due, RSV in Pharmacy Due, and Shingles in pharmacy Due Referrals: Not Applicable Screenings: PAP and HIV screening Overdue care gaps: PHQ-9 Chart prep for upcoming appt with Dr.Esparza corrales. LB documented in this encounter Plan of Treatment Upcoming Encounters Date Type Department Care Team (Late st Contact Info) Description 07/05/2024 10:00 AM EDT Office Visit [facility] ADULT DENTAL [address] [place] [address] Ev, Yary [address] [place] [address] documented as of this encounter Visit Diagnoses Not on filedocumented in this encounter Additional Health Concerns Assessment Noted Time PHQ-9 Depression Total Score: 1 08/19/19 24 1:27 PM EDT documented as of this encounter Care Teams Tunneller Relationship Specialty Start Date End Date Anthony Moreno MD [address] [place] [address] PCP - General Internal Medicine 03/07/14 documented as of this encounter
--- OUTSIDE RECORDS SUMMARY | 2024-06-29 12:34 | XMS_ITS | Clinical Summary ---
Author Organization [address] [facility] Address [address] [place] [address] Phone Care Team Providers Care Public Records Researcher Name Role Phone Anthony Blevins MD Primary [...] AM EDT Office Visit Orthopedic Surgery - [address] [place] [address] Jesus Alberto Welch MD Arthritis [...] topic Insurance MEDICAID - [place] Care Teams Public Records Researcher Relationship Specialty Start Date End Date Anthony Blevins MD [address] [place] [phone] PCP - General 01/12/24
--- OUTSIDE RECORDS SUMMARY | 2024-06-29 12:34 | XMS_ITS | Encounter Summary ---
Author Organization [facility] Address [address] [facility] 7t [place] [address] Care Team Providers Care Director Museum Or Zoo Name Role Phone Anthony Moreno MD Primary Care Provide r Reason for Referral * Consultation (Routine) - Authorized Specialty Diagnoses / Procedures Referred By Contsky cruz Referred To Contact Vascular Surgery Diagnoses Vascular insufficiency Anthony Moreno MD [address] [place] [phone] Phone: tel: fax: [facility] Referral ID Status Reason Start Date Expiration Date Visits Requested Visits Authorized [id number] Authorized Specialty Services Required 06/17/2024 06/17/2025 6 6 Reason for Visit * Reason Comments Annual Exam Encounter Details Date Type Department Care Team ([facility] st Contact Info) Description 06/17/2024 2:30 PM EST Office Visit [facility] MEDICINE [address] [place] [phone] Anthony Moreno MD [address] [place] [address] [phone] Routine physical examination (Primary Dx); Postmenopausal bleeding; Bronchiectasis without complication (CMS/HCC); Liver lesion; Overweight (BMI 25.0-29.9); Peripheral polyneuropathy; Vascular insufficiency; Preventative health care Social History Tobacco Use Types Packs/Day Years [...] AM EDT documented as of this encounter Last Filed [...] Mass Index 27.59 06/17/2024 2:23 PM EST documented in this encounter Progress Notes * Anthony Muller MD - 06/17/2024 2:30 PM EST SUBJECTIVE Steffanie James is a 59 y.o. female who presents for Annual Exam. Pt here for a routine physical exam Review of Systems Constitutional: Negative for appetite change, fatigue and fever. HENT: Negative for ear pain, hearing loss and sore throat. Eyes: Negative for pain and visual disturbance. Respiratory: Negative for cough and shortness of breath. Cardiovascular: Negative for chest pain and palpitations. Gastrointestinal: Negative for abdominal pain, nausea and vomiting. Genitourinary: Negative for dysuria. Skin: Negative for rash. Neurological: Negative for dizziness and headaches. Psychiatric/Behavioral: Negative for sleep disturbance. No Known Allergies OBJECTIVE Vitals: 06/17/24 1423 BP: 130/71 BP Location: Left arm Patient Position: Sitting BP Cuff Size: Adult Pulse: 65 Resp: 20 Temp: 96.6 ??F (35.9 ??C) TempSrc: Temporal SpO2: 98% Weight: 146 lb (66.2 kg) Height: 5' 1 (1.549 m) Physical Exam Vitals reviewed. Constitutional: General: She is awake. Appearance: Normal appearance. She is well-developed. HENT: Head: Normocephalic and atraumatic. Right Ear: Tympanic membrane, ear canal and external ear normal. Left Ear: Tympanic membrane, ear canal and external ear normal. Nose: Nose normal. Mouth/Throat: Mouth: Mucous membranes are moist. Pharynx: Oropharynx is clear. Eyes: Extraocular Movements: Extraocular movements intact. Conjunctiva/sclera: Conjunctivae normal. Pupils: Pupils are equal, round, and reactive to light. Cardiovascular: Rate and Rhythm: Normal rate and regular rhythm. Pulses: Normal pulses. Heart sounds: Normal heart sounds. Pulmonary: Effort: Pulmonary effort is normal. Breath sounds: Normal breath sounds. Chest: Breasts: Right: Normal. No swelling, bleeding, inverted nipple, mass or nipple discharge. Left: Normal. No swelling, bleeding, inverted nipple, mass or nipple discharge. Abdominal: General: Bowel sounds are normal. Palpations: Abdomen is soft. Musculoskeletal: General: Normal range of motion. Cervical back: Normal range of motion and neck supple. Lymphadenopathy: Upper Body: Right upper body: No supraclavicular or axillary adenopathy. Left upper body: No supraclavicular or axillary adenopathy. Skin: General: Skin is warm. Capillary Refill: Capillary refill takes less than 2 seconds. Neurological: General: No focal deficit present. Mental Status: She is alert and oriented to person, place, and time. Deep Tendon Reflexes: Reflexes are normal and symmetric. Psychiatric: Mood and Affect: Mood normal. Assessment/Plan Problem List Items Addressed This Visit Routine physical examination - Primary Physical exam within normal limits aside from peripheral neuropathy Postmenopausal bleeding Under the care of Dr celine Lovett FIELD CANE SCALER HELPER , last seen 05/2024 She is now [...] will continue to follow with Dr. Lovett Bronchiectasis without complication (CMS/HCC) Seen by Pulmonary Dr Hopson 06/26/2023, recommended [...] Trace simple free fluid in the pelvis. Liver lesion Recent CT done by Urology showed: 1.1 cm liver lesion MRI recommended MRI 07/09/2023 showed: Likely benign 1.1 cm septated left hepatic lobe cyst. No other liver lesion identified however recommend correlation with any outside prior imaging. Liver is mildly enlarged measuring 18.7 cm in span. Trace simple free fluid in the pelvis. Overweight (BMI 25.0-29.9) Patient has been counseled and educated about diet and exercise. Personal goal of weight loss discussed Peripheral neuropathy Patient with persistent c/o feeling like at night she keeps wanting to move her legs and c/o burning discomfort on both legs and feet NCS showed: Mild to moderate axonal sensory motor peripheral neuropathy. Pt is taking Lyrica 100 mg po BID Plan; Obtain vascular studies Relevant Medications Multiple Vitamin (multivitamin) tablet Preventative health care Mammogram: 03/14/2023 Normal Pap Smear: HPV neg, NILM, 04/03/[address] [place] [facility] [place]oscopy: 08/17/2013 Dr. Smith. Repeat 03/09/2024 Dr [place]aba [place] [facility] Normal aside from hemorrhoids, 10yr follow up recommended Vaccines: Td: 06/07/2011 Declines booster Dexa scan: 05/25/2010. Other Visit Diagnoses Vascular insufficiency Relevant Orders Referral to Vascular Surgery documented in this encounter Miscellaneous Notes * Assessment & Plan Note - Anthony Muller MD - 06/17/2024 3:13 PM EST Associated Problem(s): Routine physical examination Physical exam within normal limits aside from peripheral neuropathy * Assessment & Plan Note - Anthony Muller MD - 06/17/2024 3:11 PM EST Associated Problem(s): Peripheral neuropathy Patient with persistent c/o feeling like at night she keeps wanting to move her legs and c/o burning discomfort on both legs and feet NCS showed: Mild to moderate axonal sensory motor peripheral neuropathy. Pt is taking Lyrica 100 mg po BID Plan; Obtain vascular studies * Assessment & Plan Note - Anthony Muller MD - 06/17/2024 2:51 PM EST Associated Problem(s): Overweight (BMI 25.0-29.9) Patient has been counseled and educated about diet and exercise. Personal goal of weight loss discussed * Assessment & Plan Note - Anthony Muller MD - 06/17/2024 2:49 PM EST Associated Problem(s): Liver lesion Recent CT done by Urology showed: 1.1 cm liver lesion MRI recommended MRI 07/09/2023 showed: Likely benign 1.1 cm septated left hepatic lobe cyst. No other liver lesion identified however recommend correlation with any outside prior imaging. Liver is mildly enlarged measuring 18.7 cm in span. Trace simple free fluid in the pelvis. * Assessment & Plan Note - Anthony Muller MD - 06/17/2024 2:49 PM EST Associated Problem(s): Bronchiectasis without complication (CMS/HCC) Seen by Pulmonary Dr Hopson 06/26/2023, recommended [...] Trace simple free fluid in the pelvis. * Assessment & Plan Note - Anthony Muller MD - 06/17/2024 2:48 PM EST Associated Problem(s): Postmenopausal bleeding Under the care of Dr celine Lovett FIELD CANE SCALER HELPER , last seen 05/2024 She is now [...] will continue to follow with Dr. Lovett * Assessment & Plan Note - Anthony Muller MD - 06/17/2024 2:44 PM EST Associated Problem(s): Preventative health care Mammogram: 03/14/2023 Normal Pap Smear: HPV neg, NILM, 04/03/[address] Lovett [facility] [place]oscopy: 08/17/2013 Dr. Smith. Repeat 03/09/2024 Dr [place] [facility] Normal aside from hemorrhoids, 10yr follow up recommended Vaccines: Td: 06/07/2011 Declines booster Dexa scan: 05/25/2010. documented in this encounter Plan of Treatment Upcoming Encounters Date Type Department Care Team (Late st Contact Info) Description 07/05/2024 10:00 AM EDT Office Visit [facility] ADULT DENTAL [address] [place] [address] Ev, Yary [address] [place] [address] Scheduled Referrals Name Type Priority Associated Diagnoses Orde r Schedule Referral to Vascular Surgery Outpatient Referral Routine Vascular insufficiency Expected: 06/17/2024 (Approximate), Expires: 06/17/2025 documented as of this encounter Visit Diagnoses Diagnosis Routine physical examination- Primary Routine general medical examination at a health care facility Postmenopausal bleeding Bronchiectasis without complication (CMS/HCC) Liver lesion Other specified disorders of liver Overweight (BMI 25.0-29.9) Overweight Peripheral polyneuropathy Vascular insufficiency Unspecified circulatory system disorder Preventative health care Routine general medical examination at a health care facility documented in this encounter Additional Health Concerns Assessment Noted Time PHQ-9 Depression Total Score: 5 06/18/19 25 2:26 PM EST documented as of this encounter Care Teams Director Museum Or Zoo Relationship Specialty Start Date End Date Anthony Moreno MD [address] [place] [address] PCP - General Internal Medicine 03/07/14 documented as of this encounter
--- OUTSIDE RECORDS SUMMARY | 2024-06-29 12:34 | XMS_ITS | Encounter Summary ---
Author Organization [facility] Address [address] [facility] [address] 7t [place] [address] Care Team Providers Care Parking Lot Attendant Name Role Phone Anthony Moreno MD Primary Care Provide r Reason for Visit * Reason Comments Med Refill Encounter Details Date Type Department Care Team ([facility] st Contact Info) Description 06/14/2024 Refill [facility] [address] [place], [place] [phone] Anthony Moreno MD [address] [place], [place] [phone] Social History Tobacco Use Types Packs/Day Years [...] AM EDT documented as of this encounter Plan of Treatment Upcoming Encounters Date Type Department Care Team (Late st Contact Info) Description 07/05/2024 10:00 AM EDT Office Visit [facility] [address] [place] [address] Ev, Yary [address] [place] [address] documented as of this encounter Visit Diagnoses Not on filedocumented in this encounter Additional Health Concerns Assessment Noted Time PHQ-9 Depression Total Score: 1 08/19/19 24 1:27 PM EDT documented as of this encounter Care Teams Parking Lot Attendant Relationship Specialty Start Date End Date Anthony Moreno MD [address] [place] [address] PCP - General Internal Medicine 03/07/14 documented as of this encounter
--- OUTSIDE RECORDS SUMMARY | 2024-06-29 12:34 | XMS_ITS | Encounter Summary ---
Author Organization [employer] Address [address] [facility] [address] 7t [place] [address] Care Team Providers Care Scouring Machine Tender Name Role Phone Anthony Moreno MD Primary Care Provide r Encounter Details Date Type Department Care Team ([facility] st Contact Info) Description 05/10/2024 Telephone [facility] MEDICINE [address] [place], [place] [phone] Anthony Moreno MD [address] [place], [place] [phone] Social History Tobacco Use Types Packs/Day Years [...] Description 07/05/2024 10:00 AM EDT Office Visit [facility] ADULT DENTAL [address] [place] [address] Ev, Yary [address] [place] [address] documented as of this encounter Visit Diagnoses Not on filedocumented in this encounter Additional Health Concerns Assessment Noted Time PHQ-9 Depression Total Score: 1 08/19/19 24 1:27 PM EDT documented as of this encounter Care Teams Scouring Machine Tender Relationship Specialty Start Date End Date Anthony Moreno MD [address] [place] [address] PCP - General Internal Medicine 03/07/14 documented as of this encounter
--- OUTSIDE RECORDS SUMMARY | 2024-06-29 12:34 | XMS_ITS | Encounter Summary ---
Author Organization [employer] Address [address] [facility] 7t [place] [address] Care Team Providers Care Wash Tub Machine Operator Name Role Phone Anthony Moreno MD Primary Care Provide r Reason for Visit * Reason Comments Pre-visit Planning SDOH Screening negat leo and Tobacco screening negative Encounter Details Date Type Department Care Team ([facility] Contact Info) Description 06/08/2024 Patient Outreach [facility] MED[facility]INE [address] [place], [place] [phone] Anthony Moreno MD [address] [place] [address] Pre-visit Planning (SDOH Screening negative and Tobacco screening negative) Social History Tobacco Use Types Packs/Day Years [...] AM EDT documented as of this encounter Progress Notes * Rachele Espana - 06/08/2024 2:11 PM EST CC Rachele Marti placed successful outbound call to patient for pre-visit planning. Patient name and confirmed. Patient confirms appt date and time, and has transportation arrangements. Biggest concern for appointment at this time is a lot of cramps on both legs and feels burning sensation. Patienteducated on extended clinic hours on Mondays and Wednesdays, and Walk-In Urgent Care Located in [facility]. Patient advised to bring to appointment a photo id and insurance card. Appropriate screenings completed in anticipation of appointment. documented in this encounter Plan of Treatment Upcoming Encounters Date Type Department Care Team (Late st Contact Info) Description 07/05/2024 10:00 AM EDT Office Visit [facility] ADULT DENTAL [address] [place] [address] Ev, Yary [address] [place] [address] documented as of this encounter Visit Diagnoses Not on filedocumented in this encounter Additional Health Concerns Assessment Noted Time PHQ-9 Depression Total Score: 1 08/19/19 24 1:27 PM EDT documented as of this encounter Care Teams Wash Tub Machine Operator Relationship Specialty Start Date End Date Anthony Moreno MD [address] [place] [id number] PCP - General Internal Medicine 03/07/14 documented as of this encounter
--- OUTSIDE RECORDS SUMMARY | 2024-06-29 12:34 | XMS_ITS | Data Portability ---
Author Organization [place] [facility], Allergy Address [address] [place] [address] Care Team Providers Care Senior Tableau Developer Name Role Phone SOPHIE KIM Primary Care [...] AUDITORY CANAL, W/WO CONTRAST 2023 024 [facility] ([facility]), [address], [place], [address], 12:39:15 Medication Orders None recorded. Patient TargetsNo [...] contr ast No observ ation record ed. [email or web address] [facility] 26 [facility] [place], [address], 09/24/2023 15:40:17 12/03/19 24 09/04/2023 imagi ng/di agnos tic resul t No observ ation record ed. [email or web address] Not Available 20:41:55 Result Notes None recorded. 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, including 'globus hystericus '; Note: Date Diagnosed: 03/04/2018 3:21 PM (F45.8) Not Available [facility] 4 03:26:41 Gastroeso phageal reflux disease without esophagit is 741756238 Active 2017 Gastro-eso phageal reflux disease without esophagiti s; Note: Date Diagnosed: 03/04/2018 3:24 PM (K21.9) Not Available [facility] 4 03:26:41 Dysphagia 50465015 Active 2017 Other dysphagia; Note: Date Diagnosed: 03/04/2018 3:21 PM (R13.19) Not Available [facility] 4 03:26:41 Sensorine ural hearing loss of bilateral ears 929336279 Active 2023 MAYO TADEO, YASMIN [address] [facility],[place] [address], [place], [address] , [place] - [facility] 4 11:10:51 Vertigo 537916173 Active 2023 DIPTI BLOOD PA-C 100 [facility] 100, [place], [address] , [place] [facility] [place] 4 11:46:48 Migrainou s vertigo 345633071 Active 2023 DIPTI BLOOD PA-C 100 [facility] 100, [place], [address] , [place] - [facility] 4 15:38:23 Bilateral earache 165384021 Active 2023 DIPTI BLOOD PA-C [address] [place],[facility] 100, [place], [address] , [facility] - [facility] [place] 11:22:43 Temporoma ndibular joint disorder 00426417 Active 2023 DIPTI BLOOD PA-C [address] [place],[facility] 100, [place], [address] , [facility] - [facility] [place] 11:23:02 Problem Notes None recorded. Procedures Surgical History Date Name Laterality Status Provider Name and Address Organization Details Recorded Time Comp Audio with Tymps & Reflexes (37378 & 53352) completed YASMIN STEVENSON [facility] [place],[facility] 100, [place], [address], [facility] - [facility] [place] 09/04/2023 11:10:42 Imaging Results Imaging Date Name Status LastModified by Organiz ation Details LastModified Time 09/22/2023 MRI, brain + internal auditory canal, w/wo contrast completed [id number] [facility] [address] [place], [address], 09/24/2023 15:40:17 09/04/2023 imaging/diagn ostic result completed [...] mcg tablet 2016 active Medicati on ID: [id number] D uration Value: 30 Brand Name: levothyr [...] Reported. Medical History Condition Response Anemia Y Anxiety Y Fibromyalgia Y Migraines Y Thyroid Problems Y Depression Y Gynecological HistoryNo gynecological history recorded. Obstetrics History GPAL:G 0 P 0 0 0 0 Past Encounters Encounter ID Performer Location Encounter Start Date Encounter Closed Date Diagnosis/Indication Diagnosis SNOMED-CT Code Diagnosis ICD10 Code Diagnosis Note [id number] DIPTI BLOOD PA-C [facility] [address] [address] 09/04/2023 10:26:40 09/04/2023 12:03:25 Sensorineural hearing loss of bilateral ears 207501856 H90.3 Audiologic al evaluation results:Ri ght ear:{{Norm [...] 1kHz, AD, and contra 1kHz, . Vertigo 802354626 R42 Associated pre-syncop e and arm weakness Migrainous vertigo 59984 4007 H81.8X9 [id number] COLE SANTORO MD [facility] [address] [address] 11/26/2023 10:49:19 11/26/2023 11:27:05 Bilateral earache 894103798 H92.03 Temporoman dibular joint disorder 88825617 M26.609 Migrainous vertigo 79344 4007 H81.8X9 Health Concerns Section Related Observation LastModified by Organization Detai ls LastModified Time None Recorded Concern Status LastModified by Organization Details LastModified Time None Recorded Advance Directives Directive None Recorded Payers Encounter Date Sequence Insurance Name Policy Number Policy Abraham Covered Member ID Abraham Member ID Guarantor Name 09/04/2023 1 [place] [facility] Steffanie Benjamin James [id number] Steffanie Benjamin 11/26/2023 1 [place] [facility] Steffanie Benjamin James [id number] Steffanie Benjamin Notes Date Note Type Note [...] sugar in the diet. DIPTI BLOOD PA-C [address] [place] [address], [phone], [facility] - [facility] 09/04/2023 15:39:50 11/26/2023 text/html 58 year [...] jaw pops and cracks. COLE PICKENS MD [address] [place] [address], [place], [address], [place] - [facility] 11/26/2023 13:04:47 OBGyn Episode No OBEpisode recorded.
--- OUTSIDE RECORDS SUMMARY | 2024-06-29 12:35 | XMS_ITS | Encounter Summary ---
Author Organization [facility] [facility] Address [address] [facility] 7t [place] [address] Care Team Providers Care Nitrogen Operator Name Role Phone Anthony Moreno MD Primary Care Provide r Encounter Details Date Type Department Care Team (Latest Contact Info) Description 11/20/2020 Abstract [facility] CONVERSIONS Dental, Provider, DDS Social History Tobacco Use Types Packs/Day Years Used Date Smoking Tobacco: Never Assessed Comments Unknown Sex and Gender Information Value [...] 07/05/2024 10:00 AM EDT Office Visit [facility] ADULT DENTAL [address] [place] [address] Ev, Yary [address] [place] [address] documented as of this encounter Visit Diagnoses Not on filedocumented in this encounter Care Teams Nitrogen Operator Relationship Specialty Start Date End Date Anthony Moreno MD [address] [place] [address] PCP - General Internal Medicine 03/07/14 documented as of this encounter
--- OUTSIDE RECORDS SUMMARY | 2024-06-29 12:35 | XMS_ITS | Encounter Summary ---
Author Organization [employer] Address [address] [facility] [address] 7t [place] [address] Care Team Providers Care Lead Php Developer Name Role Phone Anthony Moreno MD Primary Care Provide r Reason for Visit * Reason Comments Med Refill Encounter Details Date Type Department Care Team ([facility] st Contact Info) Description 06/17/2024 Refill [facility] MEDICINE [address] [place], [place] [phone] Anthony Moreno MD [address] [place], [place] [phone] Peripheral polyneuropathy Social History Tobacco Use Types Packs/Day Years [...] Description 07/05/2024 10:00 AM EDT Office Visit [facility] ADULT DENTAL [address] [place] [address] Ev, Yary [address] [place] [address] documented as of this encounter Visit Diagnoses Diagnosis Peripheral polyneuropathy documented in this encounter Additional Health Concerns Assessment Noted Time PHQ-9 Depression Total Score: 5 06/18/19 25 2:26 PM EST documented as of this encounter Care Teams Lead Php Developer Relationship Specialty Start Date End Date Anthony Moreno MD [address] [place] [address] PCP - General Internal Medicine 03/07/14 documented as of this encounter
--- OUTSIDE RECORDS SUMMARY | 2024-06-29 12:35 | XMS_ITS | Encounter Summary ---
Author Organization [employer] [facility] Address [address] [facility] 7t [place] [address] Care Team Providers Care Manager Utility Name Role Phone Anthony Moreno MD Primary Care Provide r Reason for Visit * Reason Onset Date Comments ER Follow-up 06/28/2024 Referral 06/28/2024 Encounter Details Date Type Department Care Team ([facility] st Contact Info) Description 06/28/2024 Telephone [facility] MEDICINE [address] [place], [place] [phone] Anthony Moreno MD [address] [place] [address] ER Follow-up; Referral Social History Tobacco Use Types Packs/Day Years [...] encounter Miscellaneous Notes * Telephone Encounter - Arianne Baumann RN - 06/28/2024 2:41 PM EDT TC placed to pt with S lang interpreter #[id number] to follow up on pt recent visit to [facility] on 06/25/2024 for neck and musculoskeletal pain. The pt was discharge with instructions to use Ibuprofen and Tylenol for pain along with Flexeril to relax the muscle. Pt has been following this advise and keeping the neck in a fixed position as much as possible. Pt was further advised to have a referral placed [facility] or any other specialist that PCP deems appropriate to assist pt with her current nerve/muscular pain. Pt is recovering well at home and did not find an office follow up necessary but would like PCP to place this referral in the meantime. Pt informed that this information will be sent to PCP for review. * Telephone Encounter - Aric Randolph - 06/28/2024 1:35 PM EDT Patient calling to report ED visit on : Date: 06/25/24 Hospital: [facility] Seen for: Neck pain Pt DX with Neck Arthitis that radiates towrds entire back and right arm . Patient advised will forward to team nurse for follow up *pt looking for Referral to [facility] [address] [place] [phone] Is it active pt of spine and sport but needs new referral for current DX she has. documented in this encounter Plan of Treatment Upcoming Encounters Date Type Department Care Team (Late st Contact Info) Description 07/05/2024 10:00 AM EDT Office Visit [facility] ADULT DENTAL [address] [place] [address] Ev, Yary [address] [place] [address] documented as of this encounter Visit Diagnoses Not on filedocumented in this encounter Additional Health Concerns Assessment Noted Time PHQ-9 Depression Total Score: 5 06/18/19 25 2:26 PM EST documented as of this encounter Care Teams Manager Utility Relationship Specialty Start Date End Date Anthony Moreno MD [address] [place] [address] PCP - General Internal Medicine 03/07/14 documented as of this encounter
--- OUTSIDE RECORDS SUMMARY | 2024-06-29 12:35 | XMS_ITS | Encounter Summary ---
Author Organization [employer] Address [address] [facility] [address] 7t [place] [address] Care Team Providers Care Seaming Inspector Name Role Phone Anthony Moreno MD Primary Care Provide r Reason for Visit * Reason Onset Date Comments Clarification 03/18/2023 Encounter Details Date Type Department Care Team ([facility] Contact Info) Description 03/18/2023 Telephone [facility] MEDICINE [address] [place], [place] [phone] Anthony Moreno MD [address] [place], [place] [phone] Clarification Social History Tobacco Use Types Packs/Day Years Used Date Smoking Tobacco: Never Passive Smoke Exposure: Never Smokeless Tobacco: Never Alcohol Use Standard Drinks/Week Comments Defer 0 (1 standard drink = 0.6 oz pur e alcohol) Housing Stability Answer Date Recorded What is your housing situation today? I have malachichristine live 01/27/[address] you li ve. Do you have problems with any of the following? None of the above 01/27/2023 Food Insecurity Answer Date Recorded Within the past 12 months, y ou worried that your food would run out before you got money to buy more: Sometimes True 2022 Within the past 12 months,th e food you bought just didn't last and you didn't have enough money to get more: Sometimes True 01/27/2023 Transportation Answer Date Recorded In the past 12 months, has l ack of transportation kept you from medical appts, meetings, work or from getting things needed for daily living? No 01/27/2023 Utilities Answer Date Recorded In the past 12 months, has t he [employer], gas, oil or water [employer] threatened to shut off services in your home? No 01/27/2023 Depression Answer Date Recorded Patient Health Questionnaire-2 Score 0 04/16/2022 Comments Unknown Sex and Gender Information Value Date Recorded Sex Assigned at Female 02/11/2022 10:14 AM EDT Legal Sex Female 10:14 AM EDT Gender Identity Female 02/11/2022 10:14 AM EDT Sexual Orientation Choose not to disclose 2021 10:14 AM EDT documented as of this encounter Miscellaneous Notes * Telephone Encounter - Marcelle Yap Catalan - 03/18/2023 4:50 PM EST Tc from Donna From [facility] pharmacy calling in for a Clarification on script for: chlorhexidine (Peridex) 0.12 % solution. Donna states medication instruction does not specify how many times a day pt should take solution. Please contact Donna @ [phone] documented in this encounter Plan of Treatment Upcoming Encounters Date Type Department Care Team (Late st Contact Info) Description 07/05/2024 10:00 AM EDT Office Visit [facility] ADULT DENTAL [address] [place] [address] Ev, Yary [address] [place] [address] documented as of this encounter Visit Diagnoses Not on filedocumented in this encounter Care Teams Seaming Inspector Relationship Specialty Start Date End Date Anthony Moreno MD [address] [place] [address] PCP - General Internal Medicine 03/07/14 documented as of this encounter
--- OUTSIDE RECORDS SUMMARY | 2024-06-29 12:35 | XMS_ITS | Encounter Summary ---
Author Organization [employer] Address [address] 7t [place] [address] Care Team Providers Care Flight Communications Operator Name Role Phone Anthony Moreno MD Primary Care Provide r Encounter Details Date Type Department Care Team (Latest Contact Info) Description 06/17/2024 Travel Social History Tobacco Use Types Packs/Day Years [...] Description 07/05/2024 10:00 AM EDT Office Visit [facility] ADULT DENTAL [address] [place] [address] Ev, Yary [address] [place] [address] documented as of this encounter Visit Diagnoses Not on filedocumented in this encounter Additional Health Concerns Assessment Noted Time PHQ-9 Depression Total Score: 5 06/18/19 25 2:26 PM EST documented as of this encounter Care Teams Flight Communications Operator Relationship Specialty Start Date End Date Anthony Moreno MD [address] [place] [address] PCP - General Internal Medicine 03/07/14 documented as of this encounter
--- OUTSIDE RECORDS SUMMARY | 2024-06-29 12:35 | XMS_ITS | Encounter Summary ---
Author Organization [employer] Address [address] [facility] 7t [place] [address] Care Team Providers Care Supervisor Malt House Name Role Phone Anthony Moreno MD Primary Care Provide r Encounter Details Date Type Department Care Team ([facility] st Contact Info) Description 06/25/2024 Population Health Risk Score [facility] (C3) Department [address] [phone] Provider, Population Health Generic Social History Tobacco Use Types Packs/Day Years [...] is your housing situation today? I have maalchi live 01/27/[address] you [...] Description 07/05/2024 10:00 AM EDT Office Visit [facility] ADULT DENTAL [address] [place] [address] Ev, Yary [address] [place] [address] documented as of this encounter Visit Diagnoses Not on filedocumented in this encounter Additional Health Concerns Assessment Noted Time PHQ-9 Depression Total Score: 5 06/18/19 25 2:26 PM EST documented as of this encounter Care Teams Supervisor Malt House Relationship Specialty Start Date End Date Anthony Moreno MD [address] [place] [address] PCP - General Internal Medicine 03/07/14 documented as of this encounter
--- OUTSIDE RECORDS SUMMARY | 2024-06-29 12:35 | XMS_ITS | Encounter Summary ---
Author Organization [employer] Address [address] 7t [place] [address] Care Team Providers Care Senior Piping Designer Name Role Phone Anthony Moreno MD Primary Care Provide r Reason for Visit * Reason Comments Med Refill Encounter Details Date Type Department Care Team ([facility] st Contact Info) Description 05/14/2023 Refill [facility] MEDICINE [address] [place], [place] [phone] Anthony Moreno MD [address] [place], [place] [phone] Social History Tobacco Use Types Packs/Day Years [...] encounter Miscellaneous Notes * Telephone Encounter - Anthony Muller MD - 05/15/2023 9:56 AM EST Pt's levothyroxine was increased to 88 mcg, please queue instead of the 75 thank you documented in this encounter Plan of Treatment Upcoming Encounters Date Type Department Care Team (Late st Contact Info) Description 07/05/2024 10:00 AM EDT Office Visit [facility] ADULT DENTAL [address] [place] [address] Ev, Yary [address] [place] [address] documented as of this encounter Visit Diagnoses Not on filedocumented in this encounter Care Teams Senior Piping Designer Relationship Specialty Start Date End Date Anthony Moreno MD [address] [place] [address] PCP - General Internal Medicine 03/07/14 documented as of this encounter
--- OUTSIDE RECORDS SUMMARY | 2024-06-29 12:35 | XMS_ITS | Encounter Summary ---
Author Organization [employer] [facility] Address [address] [facility] 7t [place] [address] Care Team Providers Care Accounting Professional Name Role Phone Anthony Moreno MD Primary Care Provide r Encounter Details Date Type Department Care Team (Late st Contact Info) Description 03/29/2022 Abstract [facility] MEDICINE [address] [place], [place] [phone] Anthony Moreno MD [address] [place], [place] [phone] Social History Tobacco Use Types Packs/Day Years [...] Description 07/05/2024 10:00 AM EDT Office Visit [facility] ADULT DENTAL [address] [place], [place] [phone] Ev, Yary [address] [place], [place] [phone] documented as of this encounter Procedures Procedure Name Priority Date/Time Associated Diagnosis Comments BI MAMMOGRAM DIAGNOSTIC BILATERAL Routine 03/11/2022 3:54 PM EST documented in this encounter Results * (ABNORMAL) BI Mammogram Diagnostic Bilateral (03/11/2022 3:54 PM EST) Anatomical Region Laterality Modality Breast Bilateral Mammography Narrative 03/11/2022 3:54 PM EST Birads 3 - recommended bilateral diagnostic at time ??of annual exam in 12 months ([facility] ) us Historical Provider MD HARP BI PROCEDURES Final R esult documented in this encounter Visit Diagnoses Not on filedocumented in this encounter Care Teams Accounting Professional Relationship Specialty Start Date End Date Anthony Moreno MD [address] [place] [address] PCP - General Internal Medicine 03/07/14 documented as of this encounter
--- OUTSIDE RECORDS SUMMARY | 2024-06-29 12:35 | XMS_ITS | Encounter Summary ---
Author Organization [facility] Address [address] [place] [address] Care Team Providers Care Sheet Metal Insulator Name Role Phone Anthony Blevins MD Primary Care Provi natalia Reason for Visit * Reason Comments Follow-up Pain Encounter Details Date Type Department Care Team (Latest Contact Info) Description 06/23/2024 10:30 AM EDT Office Visit [facility] [place] [address] [facility] [address] [place] [phone] Jesus Alberto Welch MD [address] [facility] [address] [place] [address] Arthritis of carpometacarpal (CMC) joint of left [...] seen: 03/03/24 (I left thumb cmc joint) Adjustment Supervisor: Jenniffer #[id number] HPI: Steffanie James is a 59 y.o. female RHD presenting for followup regarding her left thumb CMC arthritis. She says that her injection greatly improved her thumb pain. She only occasionally has pain now with activities that require a pinch carrier driver. She did notice some hypopigmentation at the [...] Primary documented in this encounter Care Teams Sheet Metal Insulator Relationship Specialty Start Date End Date Anthony Blevins MD [address] [place] [place] [address] PCP - General 01/12/24 documented as of this encounter
--- OUTSIDE RECORDS SUMMARY | 2024-06-29 12:35 | XMS_ITS | Encounter Summary ---
Author Organization [employer] [facility] Address [address] [facility] 7t [place] [address] Care Team Providers Care Bleach Analyst Name Role Phone Anthony Moreno MD Primary Care Provide r Encounter Details Date Type Department Care Team (Latest Contact Info) Description 06/24/[address] [facility] CONVERSIONS Dental, Provider, DDS Social History Tobacco [...] AM EDT Office Visit [facility] ADULT DENTAL [address] [place] [address] Ev, Yary [address] [place] [address] documented as of this encounter Visit Diagnoses Not on filedocumented in this encounter Care Teams Bleach Analyst Relationship Specialty Start Date End Date Anthony Moreno MD [address] [place] [address] PCP - General Internal Medicine 03/07/14 documented as of this encounter
--- OUTSIDE RECORDS SUMMARY | 2024-06-29 12:35 | XMS_ITS | Encounter Summary ---
Demographics Address [address] [place] [address] Mobile Phone Home Phone Preferred Language es Marital Status Single Adventist Affiliation Unknown Race Other Race Ethnic Group or Author Organization [employer] Address [address] [place] [address] Care Team Providers Care Cab Driver Name Role Phone Anthony Moreno MD Primary Care Provide r Encounter Details Date Type Department Care Team ([facility] Contact Info) Description 06/25/2024 Orders Only [facility] External Provider, [facility] Social History Tobacco Use Types Packs/Day Years [...] Description 07/05/2024 10:00 AM EDT Office Visit [facility] AD[facility] D[facility]AL [address] [place] [address] Ev Yary [address] [place] [address] documented as of this encounter Procedures Procedure Name Priority Date/Time Associated Diagnosis Comments CT CERVICAL SPINE WO CONTRAST Routine 06/25/2024 12:30 PM EDT documented in this encounter Results * CT Cervical Spine w/o Contrast (06/25/2024 12:30 PM EDT) Anatomical Region Laterality Modality Spine, C-spine Computed Tomogra phy 06/25/2024 12:3 0 PM EDT Narrative 06/25/2024 1:01 PM EDT ? [facility] ?[address] ?[place] [address] ? CT Scan Report ? Signed ? Patient: Benjamin James,Steffanie ?MR#: [id number] ?? [id number] ? : 1965 ?Acct:[id number] ? Age/Sex: 59 / F ?ADM Date: 03/14/25 ? Loc: HO.ED ? Attending Dr: ? Ordering Physician: Saloni Rodriguez NP ?? Date of Service: 06/25/24 ?? Procedure(s): CT cervical spine wo IV con ?? Accession Number(s): [id number] ? cc: Anthony Blevins MD; Saloni Rodriguez NP ? Report Number: ?? [id number]: Total DLP = ??361.00 mGy-cm ?? EXAMINATION: [...] ??Abad Parker MD ??06/25/2024 12:58 PM EDT ?? RP ? Dictated By: ?Abad Parker MD ? Signed By: ?<Electronically signed by Abad Parker MD in OV> ?06/25/24 1258 ? DD/ 1230 ? TD/TT: 06/25/24 1249 ? Subway Car Repairer: ? Procedure Note Olesya, Image - 06/25/[address] [address] [address] Scan Report Signed Patient: Steffanie EsquivelMR#: [id number] : 1965Acct:[id number] Age/Sex: 59 / FADM Date: 06/25/24 Loc: HO.ED Attending Dr: Ordering Physician: Saloni Rodriguez NP Date of Service: 06/25/24 Procedure(s): CT cervical spine wo IV con Accession Number(s): [id number] cc: Anthony Blevins MD; Saloni Rodriguez NP Report Number: [id number]: Total DLP = 361.00 mGy-cm EXAMINATION: CT [...] 06/25/24 1258 DD/ 1230 TD/TT: 06/25/24 1249 Subway Car Repairer: [facility] External Provider IMG CT PROCEDURES Final Result documented in this encounter Visit Diagnoses Not on filedocumented in this encounter Additional Health Concerns Assessment Noted Time PHQ-9 Depression Total Score: 5 06/18/19 25 2:26 PM EST documented as of this encounter Care Teams Cab Driver Relationship Specialty Start Date End Date Anthony Moreno MD [address] [place] [id number] PCP - General Internal Medicine 03/07/14 documented as of this encounter
--- OUTSIDE RECORDS SUMMARY | 2024-06-29 12:35 | XMS_ITS | Encounter Summary ---
Author Organization [employer] [facility] Address [address] [place] [address] Care Team Providers Care Lithographic Press Operator Apprentice Name Role Phone Anthony Moreno MD Primary Care Provide r Encounter Details Date Type Department Care Team (Late st Contact Info) Description 03/19/2022 Abstract [facility] [address] [place] [address] ProviderRick MD Social History Tobacco Use Types Packs/Day Years [...] Description 07/05/2024 10:00 AM EDT Office Visit [facility] ADULT DENTAL [address] [place] [address] Ev, Yary [address] [place] [address] documented as of this encounter Visit Diagnoses Not on filedocumented in this encounter Care Teams Lithographic Press Operator Apprentice Relationship Specialty Start Date End Date Anthony Moreno MD [address] [place] [address] PCP - General Internal Medicine 03/07/14 documented as of this encounter
--- OUTSIDE RECORDS SUMMARY | 2024-06-29 12:35 | XMS_ITS | Encounter Summary ---
Author Organization [employer] [facility] Address [address] [place] [address] Care Team Providers Care Consumer Credit Counselor Name Role Phone Anthony Moreno MD Primary Care Provide r Encounter Details Date Type Department Care Team (Late Contact Info) Description 08/22/2022 Abstract [facility] [address] [place], [place] [phone] Anthony Moreno MD [address] [place], [place] [phone] Social History Tobacco Use Types Packs/Day Years Used Date Smoking Tobacco: Never Passive Smoke Exposure: Never Smokeless Tobacco: Never Depression Answer Date Recorded Patient Health Questionnaire-2 Score 0 04/16/2022 Comments Unknown Sex and Gender Information Value Date Recorded Sex Assigned at Female 02/11/2022 10:14 AM EDT Legal Sex Female 10:14 AM EDT Gender Identity Female 02/11/2022 10:14 AM EDT Sexual Orientation Choose not to disclose 2021 10:14 AM EDT COVID-19 Exposure Response Date Recorded In the last 10 days, have yo u been in contact with someone who was confirmed or suspected to have Coronavirus/COVID-19? No / Unsure 08/06/2022 10:32 AM EDT documented as of this encounter Plan of Treatment Upcoming Encounters Date Type Department Care Team (Late st Contact Info) Description 07/05/2024 10:00 AM EDT Office Visit [facility] ADULT DENTAL [address] [place], [place] [phone] Yary Carreno [address] [place] [address] documented as of this encounter Procedures Procedure Name Priority Date/Time Associated Diagnosis Comments COLONOSCOPY Routine 08/17/2013 documented in this encounter Results * Colonoscopy (08/17/2013) Colonoscopy Normal Normal 08/17/2013 Aidee Benedict - 08/17/2013 2:57 PM EDT Recommended 10 year follow up ( [facility] [place] Historical Provider HEALTH MAINTENANCE Final Result documented in this encounter Visit Diagnoses Not on filedocumented in this encounter Care Teams Consumer Credit Counselor Relationship Specialty Start Date End Date Anthony Moreno MD [address] [place] [id number] PCP - General Internal Medicine 03/07/14 documented as of this encounter
== END 2024-06-29 10:56 | disposition home or self-care (01) ==
LOC: HO.HVS 10:38
PROVIDERS: PCP Internal Medicine; Visit Provider Physician Assistant Surgical
DX: I83.11 Varicose veins of right lower extremity with inflammation (principal); I83.12 Varicose veins of left lower extremity with inflammation
CPT/HCPCS: 99204

== ENCOUNTER → 2024-06-29 10:37 | Outpatient (BNVA) | payer MEDICAID, SELFPAY | PROVIDERS: PCP Internal Medicine; Visit Provider Physician Assistant Surgical | DX: J45.909 Unspecified asthma, uncomplicated (principal); J47.9 Bronchiectasis, uncomplicated; R05.9 Cough, unspecified; R91.8 Other nonspecific abnormal finding of lung field; I83.11 Varicose veins of right lower extremity with inflammation; I83.12 Varicose veins of left lower extremity with inflammation | CPT/HCPCS: 99212 ==

== ENCOUNTER 2024-06-29 13:13 | Outpatient (AMB) | payer MEDICAID, SELFPAY ==
[2024-06-29 13:21] VITALS: BP 142/78; PULSE 76; O2SAT 98; BMI 27.7
--- NOTE | 2024-06-29 13:21 | A.OFFVIS_ITS ---
Vital Signs 06/29/24 13:21 Height 5 ft 1 in Weight 146 lb 9.718 oz BMI 27.7 BP 142/78 H Blood Pressure Location Lt brachial Position Sitting Pulse 76 Pulse Source Doppler Pulse Oximetry (%) 98 Oxygen Delivery Method Room Air Intake Visit Reasons: COPD Traffic Or System Dispatcher Required: Yes Traffic Or System Dispatcher Name: Lorelei Soliz Sanjay Allergies cholestyramine Allergy (Intermediate, Verified 06/29/24 13:27) itching HPI HPI COPD: Details: 59-year-old lady, nonsmoker, now followed for reactive airway disease, bronchiectasis, GERD, and pulmonary nodule.? Patient continues on Incruse and albuterol MDI with good control of her pulmonary symptoms. She denies recent exacerbation of bronchiectasis. She continues on Dexilant with good control of underlying GERD symptoms. Her follow-up CT scan in December 2023 showed stable pulmonary nodules. 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 GERD (gastroesophageal reflux disease) Anxiety Depression Fibromyalgia Surgical History Hx of surgical procedure (~02/19/24) Hx of elbow surgery History of colonoscopy (03/09/24) History of bilateral tubal ligation History of cholecystectomy Family History Family/Other Cancer Social History Household Members: None Housing: Apartment Are you a primary care management assistant to a significant other at home: No Do you presently have visiting nurse or other home services: Yes ([employer]IVIL STRUCTURAL ENGINE[employer] 1 hour/day) Alcohol intake: current Alcohol intake frequency: does not drink Patient Tobacco Use Status: Never used Tobacco Advance Directives Date on File: 01/19/20 Current occupational status: disabled Sexual orientation: Straight/Heterosexual Gender identity: Female Female Reproductive History Menstrual Age of Menarche: 7 Review of Systems Const Denies daytime sleepiness, Denies excessive sweating, Denies fatigue, Denies fever(s), Denies lethargy, Denies malaise, Denies night sweats, Denies snoring and Denies weight loss Eyes Denies blurry vision and Denies itchy eyes ENT Denies nasal congestion, Denies post nasal drip, Denies sinus pain, Denies sinus pressure and Denies other ( Thrush) Card Denies chest pain, Denies pedal edema, Denies dyspnea, Denies orthopnea and Denies paroxysmal nocturnal dyspnea Resp Denies cough, Denies hemoptysis, Denies excessive phlegm production, Denies dyspnea, Denies snoring and Denies wheezing GI Denies abdominal pain and Denies heartburn Musc Denies myalgias, Denies arthralgias and Denies joint swelling Skin/Breast Denies rash Neuro Denies memory loss and Denies seizure-like activity Psych Denies abnormal sleep pattern, Denies anxiety and Denies memory loss Endo Denies excessive sweating, Denies fatigue and Denies heat intolerance Jacob/Lymph Denies easy bruising Aller/Immun Denies itchy eyes, Denies seasonal rhinorrhea and Denies wheezing Physical Exam Vital Signs: Last Vital Signs Pulse 76 06/29/24 13:21 BP 142/78 H 06/29/24 13:21 Pulse Ox 98 06/29/24 13:21 Oxygen Delivery Method Room Air 06/29/24 13:21 BMI result Body Mass Index 27.7 Const General: no acute distress and alert Nutritional Appearance: not obese Orientation/consciousness: Other orientation findings ( oriented) HEENT Head: Yes atraumatic Eyes General: appearance normal, both eyes and all related structures Sclerae: sclerae normal EOM: EOMs intact bilaterally Neck Neck: Yes supple Lymphatic: no lymphadenopathy noted Resp Effort & Inspection: normal respiratory effort and no use of accessory muscles Auscultation: clear to auscultation bilaterally Cardio Rate: regular rate Rhythm: regular rhythm Heart sounds: no gallops, no murmurs and no rubs Skin General skin exam: other ( warm) Extrem General: No clubbing, No cyanosis and No edema Assessment & Plan Assessment & Plan (1) Bronchiectasis: Code(s): J47.9 - Bronchiectasis, uncomplicated Category: Medical Plan: No recent exacerbations. Continue to monitor clinically. (2) Pulmonary nodules: Code(s): R91.8 - Other nonspecific abnormal finding of lung field Category: Medical Plan: Stable on follow-up CT scan. Will repeat CT scan in December of 2024, if stable at that time, then no further imaging follow-up would be needed. (3) Cough: Code(s): R05.9 - Cough, unspecified Category: Medical Plan: With significant GERD component now controlled on Dexilant. Continue current regimen. (4) Reactive airway disease: Code(s): J45.909 - Unspecified asthma, uncomplicated Category: Medical Plan: Well controlled on Incruse and albuterol MDI. Continue current regimen. Coding Level of Care Code Est Pt Level 4 (82129) Complex EM visit Add On G2211 Diagnoses Bronchiectasis J47.9 Pulmonary nodules R91.8 Cough R05.9 Reactive airway disease J45.909
--- OUTSIDE RECORDS SUMMARY | 2024-06-29 15:30 | XMS_ITS | Clinical Summary ---
Author Organization [employer] Address [address] [facility] 7t [place] [address] Care Team Providers Care Business Office Associate Name Role Phone Anthony Moreno MD Primary [...] Under the care of Dr gary Lovett HOSE HANDLER , last seen 05/2024 She is now [...] synovitis on exam. She refused injection from Internal Controls Specialist. She had surgery on the right elbow for nerve pain and wants to he the left hand done. Internal Controls Specialist recommended to continue with Tylenol and over [...] of films were also faxed to patient's chiller operator Assessment & Plan (01/06/2024 10:16 AM EDT): Evaluated by Rheumatology last seen 06/2023 recommended 1 year follow up Prior serology with negative SONYA, RF, and anti-CCP. Hand pain to the right is resolved, X-rays from 2022 showed osteoarthritis. No synovitis on exam. She refused injection from Internal Controls Specialist. She had surgery on the right elbow for nerve pain and wants to he the left hand done. Internal Controls Specialist recommended to continue with Tylenol and over [...] Evaluated by ENT ( [facility]) last seen 11/26/2023 They obtained a brain MRI and IAC[facility] at [facility] ) that was read as normal for [place] [facility] aside from hemorrhoids, 10 yr follow up recommended Vaccines: Td: 06/07/2011 Declines booster Dexa scan: 05/25/2010. Assessment & Plan (11/27/2023 2:55 PM EDT): Mammogram: 03/14/2023 Normal Pap Smear: HPV neg, NILM, 04/03/[address] Lovett [facility] Colonoscopy: 08/17/2013 Dr. Smith. Scheduled for Feb 2024 for a repeat. Vaccines: Td: 06/07/2011 Declines booster Dexa scan: 05/25/2010. Assessment & Plan (01/16/2023 3:01 PM EDT): Mammogram: 03/11/2022 BIRADS 3, due Feb 2023 Pap Smear: HPV neg, NILM, 04/03/[address] Lovett [facility] Colonoscopy: 08/17/2013 Dr. Smith Vaccines: Td: 06/07/2011 Dexa scan: 05/25/2010. Assessment & Plan (08/06/2022 2:21 PM EDT): Mammogram: 03/11/2022 BIRADS 3, due Feb 2023 Pap Smear: HPV neg, NILM, 04/03/[address] Lovett [facility] Colonoscopy: 08/17/2013 Dr. Smith Vaccines: Td: 06/07/2011 [...] beneficial Previous visit she was referred to [facility]. Pt tells me she was seen and received a steroid injection Assessment & Plan (04/16/2022 1:24 PM EST): Hx of rotator cuff injury, c/o worsening pain, would like to try a steroid injection that in the past was beneficial Will refer to [facility] Donte toenail 04/16/2022 Assessment & Plan (03/02/2024 2:48 PM EST): S/p removal by Dr. Mack Perdue Assessment & Plan (01/06/2024 10:17 AM EDT): Previously referred to podiatry but patient unable to see them due to the fact thay they had no gis coordinator. Pt is requesting to have the toenail [...] a Hx of severe anxiety. follows at [facility]. On Klonopin 0.5 mg po qd prn for anxiety. Chronic low back pain 01/14/2012 Assessment & Plan (08/06/2022 2:24 PM EDT): follows at [facility], receives epidural injections intermittently. Fibromyalgia 01/14/2012 [...] 2.02 Used to follow with [place] [facility]. She is on Synthroid 88 mcg po daily. Plan: Continue with current regimen Pt tells me the Pourer Crane Ladle already told her there was no need to f/u with them to only follow with us Assessment & Plan (08/19/2023 1:26 PM EDT): Pt here for a f/u Most recent TSH 06/18/2023 elevated at 9.46 Used to follow with Endocrinology at [facility]. She is on Synthroid 88 mcg po daily. Plan: Will repeat and if still elevated will increase it to 100 mcg po daily Pt tells me the P[employer] already told her there was no need to f/u with them to only follow with us Plan: continue current regimen. Will repeat TSH Assessment & Plan (06/17/2023 2:07 PM EST): Pt here for a f/u Most recent TSH 01/27/2023 elevated at 6.02 Used to follow with Endocrinology at [facility]. She was on Synthroid 75 mcg po daily. I increased it to 88 mcg po daily Pt tells me the Pourer Crane Ladle already told her there was no need to f/u with them to only follow with us Plan: continue current regimen. Will repeat TSH Assessment & Plan (01/16/2023 3:46 PM EDT): Pt here for a f/u Most recent TSH 03/27/2022 wnl Used to follow with Endocrinology at [facility]. She is currently on Synthroid 75 mcg po daily. Pt tells me the Pourer Crane Ladle already told her there was no need to f/u with them to only follow with us Plan: continue current regimen. Will repeat TSH Assessment & Plan (08/06/2022 2:27 PM EDT): Pt here for a f/u Most recent TSH 03/27/2022 wnl Used to follow with [place]ocrinology at [facility]. She is currently on Synthroid 75 mcg po daily. Pt tells me the Pourer Crane Ladle already told her there was no need [...] Type Department Care Team Description 06/28/2024 Telephone [facility] [address] [place] [phone] Anthony Moreno MD ER Follow-up; Referral 06/25/2024 Orders Only [facility] External Provider, [facility] 06/25/2024 Population Health Risk Score Community [facility] (C[facility]) Department [address] [place] [phone] Provider, Population Health Generic 06/17/2024 2:30 PM EST Office Visit [facility] [address] [place] [address] Anthony Moreno MD Routine physical examination (Primary Dx); Postmenopausal bleeding; Bronchiectasis without complication (CMS/HCC); Liver lesion; Overweight (BMI 25.0-29.9); Peripheral polyneuropathy; Vascular insufficiency; Preventative health care 06/17/2024 Refill [facility] [address] [place] [address] Anthony Moreno MD Peripheral polyneuropathy 06/17/2024 Travel 06/14/2024 Refill [facility] [address] [place] [address] Anthony Moreno MD 06/08/2024 Patient Outreach [facility] [place] [address] Anthony Moreno MD Pre-visit Planning (SDOH Screening negative and Tobacco screening negative) 06/03/2024 Telephone [facility] [place] [address] Anthony Moreno MD Chart Prep 05/14/2024 Orders Only GENERIC EXTERNAL DATA DEPARTMENT Provider, Generic External Data 05/11/2024 Refill [facility] [place] [address] Anthony Moreno MD 05/10/2024 Telephone [address] [place] [address] Anthony Moreno MD 04/13/2024 Patient Outreach [address] [address] Anthony Moreno MD Care Coordination ([facility]/graduate) 04/13/2024 Telephone [facility] [place] [address] Leonel Rasmussen RN Care Management (C3CM- f/u call) 04/09/2024 Orders Only [facility] [place] [address] Anthony Moreno MD 04/01/[address] [address] Leonel Rasmussen, RN Care Management (C3CM- f/u [...] Description 07/05/2024 10:00 AM EDT Office Visit [facility] ADULT DENTAL [address] [place] [address] Ev, Yary [address] [place] [address] Health Maintenance Due Date Last Done Comments [...] Vaccine Aged Out No milagro maria del acrmen eligible based on patient's age to complete [...] EDT Narrative 06/25/2024 1:01 PM EDT ? [facility] ?[address] ?[place] [address] ? [address] Scan Report ? Signed ? Patient: Steffanie Esquivel ?MR#: MM ?? [id number] ? : 1965 ?Acct:[id number] ? Age/Sex: 59 / F ?ADM Date: 06/25/24 ? Loc: HO.ED ? Attending Dr: ? Ordering Physician: Saloni Rodriguez NP ?? Date of Service: 06/25/24 ?? Procedure(s): CT cervical spine wo IV con ?? Accession Number(s): [id number] ? cc: Anthony Blevins MD; Saloni Rodriguez NP ? Report Number: ?? [id number]: Total DLP = ??361.00 mGy-cm ?? EXAMINATION: [...] DD/ 1230 ? TD/TT: 06/25/24 1249 ? Lumber Puller: ? Procedure Note Olesya, Lucía - 06/25/[address] [place] [address] [address] Scan Report Signed Patient: Sourav James Ivgary#: [id number] : 1965Acct:[id number] Age/Sex: 59 / FADM Date: 06/25/24 Loc: HO.ED Attending Dr: Ordering Physician: Saloni Rodriguez NP Date of Service: 06/25/24 Procedure(s): CT cervical spine wo IV con Accession Number(s): [id number] cc: Anthony Blevins MD; Saloni Rodriguez NP Report Number: [id number]: Total DLP = 361.00 mGy-cm EXAMINATION: CT [...] 06/25/24 1258 DD/ 1230 TD/TT: 06/25/24 1249 Lumber Puller: [facility] External Provider IMG CT PROCEDURES Final Result * Hematoxylin and Eosin Stain (05/14/2024 9:28 AM EST) 05/14/2024 9:28 AM EST 05/14/2024 11:10 AM EST [facility] - 05/17/2024 5:33 PM EST ----- ------- Name: Steffanie Esquivel ? Age/Sex: 59/F ? : 1965 Unit#: [id number] ?? Attend Dr: Gary Lovett MD ?Re05/14/24 ?Status: DEP SDC ? Location: HO.SSS ?Disch: ? ----- ------- SPEC : [id number] ?RECD: 05/14/24 ? STATUS: ??SOUT ? REQ NUM: [id number] ? RAIMUNDO: 05/14/24 ? SUBM DR: Gary [...] ? Age/Sex: 59/F ? : 1965 Unit#: [id number] ?? Attend Dr: Gary Lovett MD ?Re05/14/24 ?Status: DEP SDC ? Location: HO.SSS ?Disch: ? ----- ------- SPEC : [id number] ?RECD: 05/14/24 ? STATUS: ??SOUT ? REQ NUM: [id number] ? RAIMUNDO: 05/14/24 ? SUBM DR: Gary Lovett MD ? ENTERED: ??05/14/24 ?SP TYPE: Surgical ? OTHR DR: Anthony Blevins MD ?? ORDERED: ??HE Stain/6, Gross Micro L4/3 ? Gross Description ?(Continued) cassette C. smc Copies To: ?? Anthony Blevins MD ?? [facility] ?? [address] [facility] ?? [place] [address] ?? [phone] ?? Gary Lovett MD ?? [facility] ?? [address] ?? [place] [address] ?? [phone] ----- ------- Signed (signature on file) Edwige Andrew MD 05/17/24 7879 ? ----- ------- ? END OF REPORT ? us Generic External Data Provider LAB BLOOD ORDERAB LES Final Result [facility] [address] [place] [address] [phone] * BI US Breast Limited Bilateral (04/09/2024 10:45 AM EST) Anatomical Region Laterality Modality Breast Bilateral Ultrasound 04/09/2024 10:4 5 AM EST Narrative 04/09/2024 11:01 AM EST ? [facility] [place] ? [address] ?[place] [address] ? Ultrasound Report ? Signed ? Patient: Steffanie Esquivel ?MR#: MM ?? [id number] ? : 1965 ?Acct:[id number] ? Age/Sex: 59 / F ?ADM Date: 04/09/24 ? Loc: HO.MAMMO ? Attending Dr: Anthony Blevins MD ? Ordering Physician: Anthony Blevins MD ?? Date of Service: 04/09/24 ?? Procedure(s): US breast BI limited mamm only ?? Accession Number(s): [id number] ? cc: Anthony Blevins MD ? EXAMINATION: [...] DD/ 1045 ? TD/TT: 04/09/24 1057 ? Lumber Puller: ? Procedure Note Lucía Dacosta - 04/09/2024 [facility] [address] [place] [address] Ultrasound Report Signed Patient: Steffanie EsquivelMR#: MM [id number] : 1965Acct:[id number] Age/Sex: 59 / FADM Date: 04/09/24 Loc: HO.MAMMO Attending Dr: Anthony Blevins MD Ordering Physician: Anthony Blevins MD Date of Service: 04/09/24 Procedure(s): US breast BI limited mamm only Accession Number(s): [id number] cc: Anthony Blevins MD EXAMINATION: MM DIAGNOSTIC [...] 04/09/24 1058 DD/ 1045 TD/TT: 04/09/24 1057 Lumber Puller: Anthony Muller MD [facility] PROCEDURES Fin al Result * BI Mammogram Diagnostic Tomosynthesis Bilateral (04/09/2024 10:15 AM EST) Anatomical Region Laterality Modality Breast Bilateral Mammography 04/09/2024 10:1 5 AM EST Narrative 04/09/2024 11:01 AM EST ? [facility] ? [address] ?[place] [address] ? Mammography Report ? Signed ? Patient: Steffanie Esquivel ?MR#: MM ?? [id number] ? : 1965 ?Acct:[id number] ? Age/Sex: 59 / F ?ADM Date: 12/27/24 ? Loc: HO.MAMMO ? Attending Dr: Anthony Blevins MD ? Ordering Physician: Anthony Blevins MD ?Resu ?? lts: 1Negative ? Date of Service: 04/09/24 ?Follow Up: 1 Year From Orig ?? inal Mammogram ? Procedure(s): MM tomosynthesis diagnostic BI ?? Accession Number(s): [id number] ? cc: Anthony Blevins MD ? EXAMINATION: [...] their next mammogram. ? Electronically signed by: ??rPiya Self DO ??04/09/2024 10:58 AM EST ? Dictated By: ?Priya Self DO ? Signed By: ?<Electronically signed by Priya Self, DO in OV> ? 04/09/24 1058 ? DD/ 1015 ? TD/TT: 04/09/24 1030 ? Lumber Puller: ? Procedure Note Donbelgicainterpreter, Image - 04/09/2024 [facility] [address] [place] [address] Mammography Report Signed Patient: Steffanie EsquivelMR#: MM [id number] : 1965Acct:[id number] Age/Sex: 59 / FADM Date: 04/09/24 Loc: SHAVONNEO Attending Dr: Anthony Blevins MD Ordering Physician: Anthony Blevins MDResu lts: 1Negative Date of Service: 04/09/24Follow Up: 1 Year From Orig inal Mammogram Procedure(s): MM tomosynthesis diagnostic BI Accession Number(s): [id number] cc: Anthony Blevins MD EXAMINATION: MM DIAGNOSTIC [...] 04/09/24 1058 DD/ 1015 TD/TT: 04/09/24 1030 Lumber Puller: us Anthony Muller MD IM BI PROCEDURES Fin al Result * Pap Smear (03/17/2024 9:55 AM EST) 03/17/2024 9:55 AM EST 03/18/2024 8:20 AM EST [facility] - 03/24/2024 10:20 AM EST ----- ------- Name: Steffanie Esquivel ? Age/Sex: 59/F ? : 1965 Unit#: [id number] ?? Attend Dr: Gary Lovett MD ?Re03/17/24 ?Status: DEP REF ? Location: HO.LNP ?Disch: ? ----- ------- SPEC : [id number] ?RECD: 03/18/24 ? STATUS: ??SOUT ? REQ NUM: [id number] ? RAIMUNDO: 03/17/24 ? SUBM DR: Gary [...] Copies To: ?? Anthony Blevins MD ?? [facility] ?? [address] ?? [place] [address] ?? [phone] ?? Gary Lovett MD ?? [facility] ?? [address] [facility] [address] ?? [place] [address] ?? [phone] ----- ------- Signed (signature on file) RYAN Candelario (ASCP) 03/24/24 1020 ? ----- ------- ? END OF REPORT ? us Generic External Data Provider LAB CYTOLOGY JHONNY MARTINES Final Result Performing Organization Address City/[facility]/ZIP Co de Phone Number [facility] [address] [place] [address] [phone] * Hm Colonoscopy (03/09/2024 9:14 AM EST) Colonoscopy Normal Normal 03/09/2024 9:14 AM EST Historical Provider HEALTH MAINTENANCE Final Result * Hepatitis C Antibody with Reflex to HCV, RNA, Quantitative, Real-Time PCR (01/27/2023 1:47 PM EDT) Pathologist [facility] Hepatitis C Antibody Nonreactive Nonreactive [facility] Comment:Antibodies to HCV no t detected; does not exclude early acuteHCV infection. Blood Venous blood specimen / Unknown 01/27/2023 1:47 PM EDT 01/27/2023 1:47 PM EDT Anthony Muller MD LAB BLOOD ORDERABLES Final Result Performing Organization Address [facility] Co de Phone Number [facility] [address] [place] [address] [phone] * HPV E6/E7 RFLX MIKAL 16 18/45 (04/03/2021 3:12 PM EST) HPV mRNA E6/E7 rflx Not Detected Not Detected [facility] Comment: Methodology: Field Radio Operator-Mediated Amplification This assay detects E6/E7 viral messenger RNA (mRNA) from 14 high-risk HPV types (16,18,31,33,35,39,45,51,52,56,58,59,66,68). The analytical performance characteristics of this assay have been determined by [employer]. The modifications have not been cleared or approved by the FDA. This assay has been validated pursuant to the CLIA regulations and is used for clinical purposes. For additional information, please refer to http://education.Distra.MediaVast/faq/GGP507l2 (This link if provided for information/ educational purposes only.) THIS TEST WAS PERFORMED AT: [facility] [address] [place] [address] [address]LO[address] [place], [place] ??[phone] FABRICIO SINHA MD 04/03/2021 3:12 PM EST Gary Lovett MD HISTORICAL/NON ORDERABLE LABS Fi nal Result [facility] [address] from Last 3 Months or Most Recently Relevant to Health Maintenance Insurance [facility] MEDICAID STAND ADULT C3 [facility] MEDICAID STAND ADULT Care Teams Business Office Associate Relationship Specialty Start Date End Date Anthony Moreno MD [address] [place] [address] PCP - General Internal Medicine 03/07/14
--- OUTSIDE RECORDS SUMMARY | 2024-06-29 15:30 | XMS_ITS | Clinical Summary ---
Author Organization [facility] Address [address] [place] [address] Phone Care Team Providers Care Cullet Washer Name Role Phone Anthony Blevins MD Primary [...] AM EDT Office Visit Orthopedic Surgery - [address] [place] [address] Jesus Alberto [place] MD Arthritis [...] topic Insurance [place]ICA[place] - [place] Care Teams Cullet Washer Relationship Specialty Start Date End Date Anthony Blevins MD [address] [place] [phone] PCP - General 01/12/24
--- OUTSIDE RECORDS SUMMARY | 2024-06-29 15:31 | XMS_ITS | Encounter Summary ---
Author Organization [facility] Address [address] [facility] 7t [place] [address] Care Team Providers Care Plastic Sheeting Cutter Name Role Phone Anthony Moreno MD Primary Care Provide r Reason for Visit * Reason Onset Date Comments ER Follow-up 06/28/2024 Referral 06/28/2024 Encounter Details Date Type Department Care Team ([facility] st Contact Info) Description 06/28/2024 Telephone [facility] [address] [place], [place] [phone] Anthony Moreno MD [address] [place] [address] ER Follow-up; Referral Social History Tobacco Use [...] EDT TC placed to pt with S sweater operator #[id number] to follow up on pt recent visit to [facility] on 06/25/2024 for neck and musculoskeletal [...] ED visit on : Date: 06/25/24 Hospital: [facility] Seen for: Neck pain Pt DX with Neck Arthitis that radiates towrds entire back and right arm . Patient advised will forward to team nurse for follow up *pt looking for Referral to [facility] [address] [place] [phone] Is it active pt of spine and sport but needs new referral for current DX she has. documented in this encounter Plan of Treatment Upcoming Encounters Date Type Department Care Team (Late st Contact Info) Description 07/05/2024 10:00 AM EDT Office Visit [facility] ADULT DENTAL [address] [place] [address] Ev, Yary [address] [place] [address] documented as of this encounter Visit Diagnoses Not on filedocumented in this encounter Additional Health Concerns Assessment Noted Time PHQ-9 Depression Total Score: 5 06/18/19 25 2:26 PM EST documented as of this encounter Care Teams Plastic Sheeting Cutter Relationship Specialty Start Date End Date Anthony Moreno MD [address] [place] [address] PCP - General Internal Medicine 03/07/14 documented as of this encounter
--- OUTSIDE RECORDS SUMMARY | 2024-06-29 15:31 | XMS_ITS | Encounter Summary ---
Author Organization [employer] [facility] Address [address] [facility] 7t [place] [address] Care Team Providers Care Management Liaison Name Role Phone Anthony Moreno MD Primary Care Provide r Encounter Details Date Type Department Care Team (Late st Contact Info) Description 03/19/2022 Abstract [facility] [address] [place] [address] ProviderRick MD Social History Tobacco Use Types [...] Description 07/05/2024 10:00 AM EDT Office Visit [facility] ADULT DENTAL [address] [place] [address] Ev, Yary [address] [place] [address] documented as of this encounter Visit Diagnoses Not on filedocumented in this encounter Care Teams Management Liaison Relationship Specialty Start Date End Date Anthony Moreno MD [address] [place] [address] PCP - General Internal Medicine 03/07/14 documented as of this encounter
--- OUTSIDE RECORDS SUMMARY | 2024-06-29 15:31 | XMS_ITS | Encounter Summary ---
Author Organization [employer] Address [address] [facility] [address] 7t [place] [address] Care Team Providers Care Mail Officer Name Role Phone Anthony Moreno MD Primary Care Provide r Reason for Visit * Reason Comments Med Refill Encounter Details Date Type Department Care Team ([facility] st Contact Info) Description 05/14/2023 Refill [facility] [address] [place], [place] [phone] Anthony Moreno MD [address] [place], [place] [phone] Social History Tobacco Use Types Packs/Day Years [...] 10:00 AM EDT Office Visit [facility] ADULT DENTAL [address] [place] [address] Ev, Yary [address] [place] [address] documented as of this encounter Visit Diagnoses Not on filedocumented in this encounter Care Teams Mail Officer Relationship Specialty Start Date End Date Anthony Moreno MD [address] [place] [address] PCP - General Internal Medicine 03/07/14 documented as of this encounter
--- OUTSIDE RECORDS SUMMARY | 2024-06-29 15:31 | XMS_ITS | Encounter Summary ---
Author Organization [facility] [facility] Address [address] [facility] 7t [place] [address] Care Team Providers Care Leather Belt Loop Cutter Name Role Phone Anthony Moreno MD Primary Care Provide r Reason for Referral * Consultation (Routine) - Authorized Specialty Diagnoses / Procedures Referred By Contsky cruz Referred To Contact Vascular Surgery Diagnoses Vascular insufficiency Anthony Moreno MD [address] [place] [address] Phone: tel: fax: [facility] Referral ID Status Reason Start Date Expiration Date Visits Requested Visits Authorized [id number] Authorized Specialty Services Required 06/17/2024 06/17/2025 6 6 Reason for Visit * Reason Comments Annual Exam Encounter Details Date Type Department Care Team ([facility] st Contact Info) Description 06/17/2024 2:30 PM EST Office Visit [facility] [address] [place] [phone] Anthony Moreno MD [address] [place] [phone] Routine physical examination (Primary Dx); Postmenopausal bleeding; [...] Under the care of Dr celine Lovett CENTER RECEPTIONIST , last seen 05/2024 She is now [...] 04/03/[address] Lovett [facility] [place]oscopy: 08/17/2013 Dr. Smith. Repeat 03/09/2024 Dr Kaba at [facility] Normal aside from hemorrhoids, 10yr follow up [...] discussed * Assessment & Plan Note - Atnhony Muller MD - 06/17/2024 2:49 PM EST [...] Under the care of Dr celine Lovett CENTER RECEPTIONIST , last seen 05/2024 She is now [...] 04/03/[address] Lovett [facility] Colonoscopy: 08/17/2013 Dr. Smith. Repeat 03/09/2024 Dr Kaba at [facility] Normal aside from hemorrhoids, 10yr follow up recommended Vaccines: Td: 06/07/2011 Declines booster Dexa scan: 05/25/2010. documented in this encounter Plan of Treatment Upcoming Encounters Date Type Department Care Team (Late st Contact Info) Description 07/05/2024 10:00 AM EDT Office Visit [facility] [address] [place] [address] Ev, Yary [address] [place] [address] Scheduled Referrals Name Type Priority Associated Diagnoses [...] documented as of this encounter Care Teams Leather Belt Loop Cutter Relationship Specialty Start Date End Date Anthony Moreno MD [address] [place] [address] PCP - General Internal Medicine 03/07/14 documented as of this encounter
--- OUTSIDE RECORDS SUMMARY | 2024-06-29 15:31 | XMS_ITS | Encounter Summary ---
Author Organization [employer] Address [address] 7t [place] [address] Care Team Providers Care Glue Machine Operator Name Role Phone Anthony Moreno [...] 10:00 AM EDT Office Visit [facility] ADULT [facility] [address] [place] [address] Ev, Yary [address] [place] [address] documented as of this encounter Visit Diagnoses Not on filedocumented in this encounter Additional Health Concerns Assessment Noted Time PHQ-9 Depression Total Score: 5 06/18/19 25 2:26 PM EST documented as of this encounter Care Teams Glue Machine Operator Relationship Specialty Start Date End Date Anthony Moreno MD [address] [place] [address] PCP - General Internal Medicine 03/07/14 documented as of this encounter
--- OUTSIDE RECORDS SUMMARY | 2024-06-29 15:31 | XMS_ITS | Encounter Summary ---
Author Organization [facility] Address [address] [facility] [address]t [place] [address] Care Team Providers Care Offset Second Press Operator Name Role Phone Anthony Moreno MD Primary Care Provide r Reason for Visit * Reason Comments Med Refill Encounter Details Date Type Department Care Team ([facility] st Contact Info) Description 06/14/2024 Refill [facility] MEDICINE [address] [place], [place] [phone] Anthony Moreno MD [address] [place], [place] [phone] Social History Tobacco Use Types Packs/Day Years [...] 07/05/2024 10:00 AM EDT Office Visit [facility] ADULT DENTAL [address] [place] [address] Ev, Yary [address] [place] [address] documented as of this encounter Visit Diagnoses Not on filedocumented in this encounter Additional Health Concerns Assessment Noted Time PHQ-9 Depression Total Score: 1 08/19/19 24 1:27 PM EDT documented as of this encounter Care Teams Offset Second Press Operator Relationship Specialty Start Date End Date Anthony Moreno MD [address] [place] [address] PCP - General Internal Medicine 03/07/14 documented as of this encounter
--- OUTSIDE RECORDS SUMMARY | 2024-06-29 15:31 | XMS_ITS | Encounter Summary ---
Author Organization [employer] Address [address] [facility] 7t [place] [address] Care Team Providers Care Molding Utility Worker Name Role Phone Anthony Moreno MD Primary Care Provide r Reason for Visit * Reason Onset Date Comments Chart Prep 06/03/2024 Encounter Details Date Type Department Care Team ([facility] Contact Info) Description 06/03/2024 Telephone [facility] MEDICINE [address] [place], [place] [phone] Anthony Moreno MD 230 [place] [address] Chart Prep Social History Tobacco Use Types [...] Description 07/05/2024 10:00 AM EDT Office Visit [facility] ADULT DENTAL [address] [place] [address] Ev, Yary [address] [place] [address] documented as of this encounter Visit Diagnoses Not on filedocumented in this encounter Additional Health Concerns Assessment Noted Time PHQ-9 Depression Total Score: 1 08/19/19 24 1:27 PM EDT documented as of this encounter Care Teams Molding Utility Worker Relationship Specialty Start Date End Date Anthony Moreno MD [address] [place] [address] PCP - General Internal Medicine 03/07/14 documented as of this encounter
--- OUTSIDE RECORDS SUMMARY | 2024-06-29 15:31 | XMS_ITS | Encounter Summary ---
Author Organization [employer] Address [address] 7[address] [place] [address] Care Team Providers Care Catheter Builder Name Role Phone Anthony Moreno MD Primary Care Provide r Reason for Visit * Reason Comments Med Refill Encounter Details Date Type Department Care Team ([facility] st Contact Info) Description 06/17/2024 Refill [facility] MEDICINE [address] [place], [place] [phone] Anthony Moreno MD 230 [place], [place] [phone] Peripheral polyneuropathy Social History Tobacco Use Types [...] Description 07/05/2024 10:00 AM EDT Office Visit [facility] ADULT DENTAL [address] [place] [address] Ev, Yary [address] [place] [address] documented as of this encounter Visit Diagnoses Diagnosis Peripheral polyneuropathy documented in this encounter Additional Health Concerns Assessment Noted Time PHQ-9 Depression Total Score: 5 06/18/19 25 2:26 PM EST documented as of this encounter Care Teams Catheter Builder Relationship Specialty Start Date End Date Anthony Moreno MD [address] [place] [address] PCP - General Internal Medicine 03/07/14 documented as of this encounter
--- OUTSIDE RECORDS SUMMARY | 2024-06-29 15:31 | XMS_ITS | Encounter Summary ---
Author Organization [employer] Address [address] [facility] 7t [place] [address] Care Team Providers Care Director Of Health Care Marketing Name Role Phone Anthony Moreno MD Primary Care Provide r Encounter Details Date Type Department Care Team ([facility] st Contact Info) Description 06/25/2024 Population Health Risk Score [facility] ([facility]) Department [address] [phone] Provider, Population Health Generic Social History Tobacco [...] Description 07/05/2024 10:00 AM EDT Office Visit [facility] ADULT DENTAL [address] [place] [address] Ev, Yary [address] [place] [address] documented as of this encounter Visit Diagnoses Not on filedocumented in this encounter Additional Health Concerns Assessment Noted Time PHQ-9 Depression Total Score: 5 06/18/19 25 2:26 PM EST documented as of this encounter Care Teams Director Of Health Care Marketing Relationship Specialty Start Date End Date Anthony Moreno MD [address] [place] [address] PCP - General Internal Medicine 03/07/14 documented as of this encounter
--- OUTSIDE RECORDS SUMMARY | 2024-06-29 15:31 | XMS_ITS | Encounter Summary ---
Author Organization [employer] [facility] Address [address] [facility] 7t [place] [address] Care Team Providers Care Staple Laster Name Role Phone Anthony Moreno MD Primary Care Provide r Encounter Details Date Type Department Care Team (Latest Contact Info) Description 11/20/2020 Abstract [facility] CONVERSIONS Dental, Provider, DDS Social History [...] Description 07/05/2024 10:00 AM EDT Office Visit [facility] ADULT DENTAL [address] [place] [address] Ev, Yary [address] [place] [address] documented as of this encounter Visit Diagnoses Not on filedocumented in this encounter Care Teams Staple Laster Relationship Specialty Start Date End Date Anthony Moreno MD 230 [place] [address] PCP - General Internal Medicine 03/07/14 documented as of this encounter
--- OUTSIDE RECORDS SUMMARY | 2024-06-29 15:31 | XMS_ITS | Encounter Summary ---
Author Organization [employer] [facility] Address [address] [facility] 7t [place] [address] Care Team Providers Care Physician Vice President Name Role Phone Anthony Moreno MD Primary Care Provide r Encounter Details Date Type Department Care Team (Late Contact Info) Description 08/22/2022 Abstract [facility] MEDICINE [address] [place], [place] [phone] Anthony Moreno MD [address] [place], [place] [phone] Social History Tobacco Use Types Packs/Day Years [...] 10:00 AM EDT Office Visit [facility] ADULT DENTAL [address] [place], [place] [phone] Yary Carreno [address] [place] [address] documented as of this encounter Procedures Procedure Name Priority Date/Time Associated Diagnosis Comments COLONOSCOPY Routine 08/17/2013 documented in this encounter Results * Colonoscopy (08/17/2013) Colonoscopy Normal Normal 08/17/2013 Aidee Benedict - 08/17/2013 2:57 PM EDT Recommended 10 year follow up ( [facility] ) Historical Provider HEALTH MAINTENANCE Final Result documented in this encounter Visit Diagnoses Not on filedocumented in this encounter Care Teams Physician Vice President Relationship Specialty Start Date End Date Anthony Moreno MD [address] [place] [address] PCP - General Internal Medicine 03/07/14 documented as of this encounter
--- OUTSIDE RECORDS SUMMARY | 2024-06-29 15:31 | XMS_ITS | Encounter Summary ---
Author Organization [employer] [facility] Address [address] [facility] 7t [place] [address] Care Team Providers Care Clinical Neuropsychologist Name Role Phone Anthony Moreno MD Primary Care Provide r Encounter Details Date Type Department Care Team (Latest Contact Info) Description 06/24/2018 Abstract [facility] CONVERSION[facility] Dental, Provider, DDS Social History [...] Description 07/05/2024 10:00 AM EDT Office Visit [facility] ADULT DENTAL [address] [place] [address] Ev, Yary [address] [place] [address] documented as of this encounter Visit Diagnoses Not on filedocumented in this encounter Care Teams Clinical Neuropsychologist Relationship Specialty Start Date End Date Anthony Moreno MD 230 [place] [address] PCP - General Internal Medicine 03/07/14 documented as of this encounter
--- OUTSIDE RECORDS SUMMARY | 2024-06-29 15:31 | XMS_ITS | Encounter Summary ---
Author Organization [employer] Address [address] [facility] 7t [place] [address] Care Team Providers Care Prism Inspector Name Role Phone Anthony Moreno MD Primary Care Provide r Reason for Visit * Reason Comments Pre-visit Planning SDOH Screening negat leo and Tobacco screening negative Encounter Details Date Type Department Care Team ([facility] Contact Info) Description 06/08/2024 Patient Outreach [facility] MEDICINE 230 [place], [place] [phone] Anthony Moreno MD 230 [place] [address] Pre-visit Planning (SDOH Screening negative and Tobacco [...] Wednesdays, and Walk-In Urgent Care Located in [facility]. Patient advised to bring to appointment a photo id and insurance card. Appropriate screenings completed in anticipation of appointment. documented in this encounter Plan of Treatment Upcoming Encounters Date Type Department Care Team (Late st Contact Info) Description 07/05/2024 10:00 AM EDT Office Visit [facility] ADULT DENTAL [address] [place] [address] Ev, Yary [address] [place] [address] documented as of this encounter Visit Diagnoses Not on filedocumented in this encounter Additional Health Concerns Assessment Noted Time PHQ-9 Depression Total Score: 1 08/19/19 24 1:27 PM EDT documented as of this encounter Care Teams Prism Inspector Relationship Specialty Start Date End Date Anthony Moreno MD [address] [place] [address] PCP - General Internal Medicine 03/07/14 documented as of this encounter
--- OUTSIDE RECORDS SUMMARY | 2024-06-29 15:31 | XMS_ITS | Encounter Summary ---
Author Organization [employer] [facility] Address [address] [facility] 7t [place] [address] Care Team Providers Care Cartridge Loader Name Role Phone Anthony Moreno MD Primary Care Provide r Encounter Details Date Type Department Care Team (Late st Contact Info) Description 03/29/2022 Abstract [facility] MEDICINE [address] [place], [place] [phone] Anthony Moreno MD [address] [place], [place] [phone] Social History Tobacco Use Types Packs/Day Years [...] 10:00 AM EDT Office Visit [facility] ADULT DENTAL [address] [place], [place] [phone] Ev, Yary [address] [place], [place] [phone] documented as of this encounter Procedures Procedure Name Priority Date/Time Associated Diagnosis Comments BI MAMMOGRAM DIAGNOSTIC BILATERAL Routine 03/11/2022 3:54 PM EST documented in this encounter Results * (ABNORMAL) BI Mammogram Diagnostic Bilateral (03/11/2022 3:54 PM EST) Anatomical Region Laterality Modality Breast Bilateral Mammography Narrative 03/11/2022 3:54 PM EST Birads 3 - recommended bilateral diagnostic at time ??of annual exam in 12 months ([facility] ) us Historical Provider MD HARP BI PROCEDURES Final R esult documented in this encounter Visit Diagnoses Not on filedocumented in this encounter Care Teams Cartridge Loader Relationship Specialty Start Date End Date Anthony Moreno MD [address] [place] [address] PCP - General Internal Medicine 03/07/14 documented as of this encounter
--- OUTSIDE RECORDS SUMMARY | 2024-06-29 15:31 | XMS_ITS | Encounter Summary ---
Author Organization [employer] Address [address] [facility] 7t [place] [address] Care Team Providers Care Invoice Control Clerk Name Role Phone Anthony Moreno MD Primary Care Provide r Reason for Visit * Reason Onset Date Comments Clarification 03/18/2023 Encounter Details Date Type Department Care Team ([facility] Contact Info) Description 03/18/2023 Telephone [facility] MEDICINE [address] [place], [place] [phone] Anthony Moreno MD 230 [place], [place] [phone] Clarification Social History Tobacco Use Types Packs/Day [...] the past 12 months, has t he [employer], gas, oil or water [facility] threatened to shut off services in your [...] 4:50 PM EST Tc from Donna From [facility] pharmacy calling in for a Clarification on script for: chlorhexidine (Peridex) 0.12 % solution. Donna states medication instruction does not specify how many times a day pt should take solution. Please contact Donna @ [phone] documented in this encounter Plan of Treatment Upcoming Encounters Date Type Department Care Team (Late st Contact Info) Description 07/05/2024 10:00 AM EDT Office Visit [facility] ADULT DENTAL [address] [place] [address] Ev, Yary 230 [place] [address] documented as of this encounter Visit Diagnoses Not on filedocumented in this encounter Care Teams Invoice Control Clerk Relationship Specialty Start Date End Date Anthony Moreno MD [address] [place] [address] PCP - General Internal Medicine 03/07/14 documented as of this encounter
--- OUTSIDE RECORDS SUMMARY | 2024-06-29 15:31 | XMS_ITS | Encounter Summary ---
Author Organization [employer] Address [address] [facility] [address] 7t [place] [address] Care Team Providers Care Chemical Sales Representative Name Role Phone Anthony Moreno MD Primary Care Provide r Encounter Details Date Type Department Care Team ([facility] st Contact Info) Description 05/10/2024 Telephone [facility] MEDICINE 230 [place], [place] [phone] Anthony Moreno MD 230 [place], [place] [phone] Social History Tobacco Use Types Packs/Day Years [...] [facility] ADULT DENTAL [address] [place] [address] Ev, Yary [address] [place] [address] documented as of this encounter Visit Diagnoses Not on filedocumented in this encounter Additional Health Concerns Assessment Noted Time PHQ-9 Depression Total Score: 1 08/19/19 24 1:27 PM EDT documented as of this encounter Care Teams Chemical Sales Representative Relationship Specialty Start Date End Date Anthony Moreno MD 230 [place] [address] PCP - General Internal Medicine 03/07/14 documented as of this encounter
--- OUTSIDE RECORDS SUMMARY | 2024-06-29 15:31 | XMS_ITS | Encounter Summary ---
Demographics Address [address] [place] [address] Mobile Phone Home Phone Preferred Language es Marital Status Single Gnosticism Affiliation Unknown Race Other Race Ethnic Group or Author Organization [employer] Address [address] 7t [place] [address] Care Team Providers Care Software Engineer Web Applications Name Role Phone Anthony Moreno MD Primary Care Provide r Encounter Details Date Type Department Care Team ([facility] Contact Info) Description 06/25/2024 Orders Only [facility] External Provider, [facility] Social History Tobacco Use Types Packs/Day Years [...] Description 07/05/2024 10:00 AM EDT Office Visit [facility] ADULT DENTAL [address] [place] [address] Ev Yary [address] [place] [address] documented as of this encounter Procedures Procedure Name Priority Date/Time Associated Diagnosis Comments CT CERVICAL SPINE WO CONTRAST Routine 06/25/2024 12:30 PM EDT documented in this encounter Results * CT Cervical Spine w/o Contrast (06/25/2024 12:30 PM EDT) Anatomical Region Laterality Modality Spine, C-spine Computed Tomogra phy 06/25/2024 12:3 0 PM EDT Narrative 06/25/2024 1:01 PM EDT ? [facility] ?[address] ?[place] [address] ? CT Scan Report ? Signed ? Patient: [place] James,Steffanie ?MR#: [id number] ?? [id number] ? : 1965 ?Acct:[id number] ? Age/Sex: 59 / F ?ADM Date: 03/14/25 ? Loc: HO.ED ? Attending Dr: ? Ordering Physician: Saloni Rodriguez NP ?? Date of Service: 06/25/24 ?? Procedure(s): CT cervical spine wo IV con ?? Accession Number(s): [id number] ? cc: Anthony Blevins MD; Saloni Rodriguez NP ? Report Number: ?? [id number]: Total DLP = ??361.00 mGy-cm ?? EXAMINATION: [...] DD/ 1230 ? TD/TT: 06/25/24 1249 ? Driller Brake Lining: ? Procedure Note Olesya, Image - 06/25/[address] [address] [place] Scan Report Signed Patient: Steffanie EsquivelMR#: [id number] : 1965Acct:[id number] Age/Sex: 59 / FADM Date: 06/25/24 Loc: HO.ED Attending Dr: Ordering Physician: Saloni Rodriguez NP Date of Service: 06/25/24 Procedure(s): CT cervical spine wo IV con Accession Number(s): [id number] cc: Anthony Blevins MD; Saloni Rodriguez NP Report Number: [id number]: Total DLP = 361.00 mGy-cm EXAMINATION: CT [...] 06/25/24 1258 DD/ 1230 TD/TT: 06/25/24 1249 Driller Brake Lining: [facility] External Provider IMG CT PROCEDURES Final Result documented in this encounter Visit Diagnoses Not on filedocumented in this encounter Additional Health Concerns Assessment Noted Time PHQ-9 Depression Total Score: 5 06/18/19 25 2:26 PM EST documented as of this encounter Care Teams Software Engineer Web Applications Relationship Specialty Start Date End Date Anthony Moreno MD [address] [place] [address] PCP - General Internal Medicine 03/07/14 documented as of this encounter
--- OUTSIDE RECORDS SUMMARY | 2024-06-29 15:32 | XMS_ITS | Encounter Summary ---
Author Organization [facility] Address [address] [place] [address] Care Team Providers Care Starcher And Tenter Range Feeder Name Role Phone Anthony Blevins MD Primary Care Provi natalia Reason for Visit * Reason Comments Follow-up Pain Encounter Details Date Type Department Care Team (Latest Contact Info) Description 06/23/2024 10:30 AM EDT Office Visit [facility] [place] [address] [facility] [facility] [address] [place] [phone] Jesus Alberto Welch MD [address] [facility] [address] [place] [address] Arthritis of carpometacarpal (CMC) joint of left [...] seen: 03/03/24 (I left thumb cmc joint) Core Drilling Supervisor: Jenniffer #[id number] HPI: Steffanie James is a 59 y.o. female RHD presenting for followup regarding her left thumb CMC arthritis. She says that her injection greatly improved her thumb pain. She only occasionally has pain now with activities that require a pinch quality assurance project manager. She did notice some hypopigmentation at the [...] Primary documented in this encounter Care Teams Starcher And Tenter Range Feeder Relationship Specialty Start Date End Date Anthony Blevins MD [address] [employer] [facility] [place] [phone] PCP - General 01/12/24 documented as of this encounter
== END 2024-06-29 13:51 | disposition home or self-care (01) ==
LOC: HO.HPS 13:14
PROVIDERS: PCP Internal Medicine; Visit Provider Internal Medicine Pulmonary Disease
DX: J47.9 Bronchiectasis, uncomplicated (principal); R91.8 Other nonspecific abnormal finding of lung field; R05.9 Cough, unspecified; J45.909 Unspecified asthma, uncomplicated
CPT/HCPCS: 99214

== ENCOUNTER 2024-07-01 11:07 | Outpatient (AMB) | payer MEDICAID, SELFPAY ==
--- NOTE | 2024-07-01 11:20 | A.OFFVIS_ITS ---
Vital Signs 07/01/24 11:25 Height 5 ft 1 in Weight 146 lb 2.664 oz BMI 27.6 BP 122/70 Blood Pressure Location Lt brachial Position Sitting Pulse 68 Pulse Source Pulse Oximeter Pulse Oximetry (%) 97 Oxygen Delivery Method Room Air Intake Visit Reasons: OA hand and FM Intake Note: Patient presents for OA hand and FM. Hotel Operation Manager Required: Yes Hotel Operation Manager Language: Lidar Scientist Services: Hotel Operation Manager Present Hotel Operation Manager Name: Courtney [email or web address] Information Interpreted: non-clinical & clinical Allergies cholestyramine Allergy (Intermediate, Verified 07/01/24 11:24) itching Medication List - Last Reconciled 07/01/24 by Leanna Carter MD acetaminophen 1,000 mg (2 x 500 mg) PO Q8H PRN albuterol sulfate 90 mcg/actuation (Ventolin HFA) 2 puffs inhalation Q4-6H PRN calcium carbonate-vitamin D3 600 mg-12.5 mcg (500 unit) (Calcium with Vit D3) 1 cap PO DAILY clonazepam 0.5 mg PO BEDTIME cyclobenzaprine 10 mg PO TID PRN dexlansoprazole (Dexilant) 60 mg PO DAILY 30 days dicyclomine 20 mg PO QID 30 days eluxadoline (Viberzi) 100 mg PO BID fluticasone propionate 50 mcg/actuation (Allergy Relief (fluticasone)) 1 spray intranasal DAILY levothyroxine 88 mcg PO DAILY loratadine (Allergy Relief (loratadine)) 10 mg PO DAILY oxybutynin chloride ER 15 mg PO DAILY pregabalin 100 mg PO BID propranolol 20 mg PO BID simethicone 180 mg PO QID sumatriptan succinate 50 mg PO DAILY PRN umeclidinium 62.5 mcg/actuation (Incruse Ellipta) 1 inh inhalation DAILY 30 days HPI Comments Details: Patient is a 59-year-old female with reactive airway disease, bronchiectasis, IBS with diarrhea, GERD, polyarticular osteoarthritis with erosive OA and fibromyalgia here today for follow up Interval History: Patient last seen 07/02/2023 with Mee Riggs. At that time she was following up for her fibromyalgia. She continues to complain of chronic head to toe pain due to her fibromyalgia but her symptoms were managed with amitriptyline and Lyrica which is prescribed by her PCP and then she also uses naproxen as needed. She had also recently gotten a cubital tunnel release 12/2021 which improved her chronic bilateral hand pain and numbness. 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 GERD (gastroesophageal reflux disease) Anxiety Depression Fibromyalgia Surgical History Hx of surgical procedure (~02/19/24) Hx of elbow surgery History of colonoscopy (03/09/24) History of bilateral tubal ligation History of cholecystectomy Family History Family/Other Cancer Social History Household Members: None Housing: Apartment Are you a primary care taker to a significant other at home: No Do you presently have visiting nurse or other home services: Yes (WINDOW REPAIRER 1 hour/d ay) Alcohol intake: current Alcohol intake frequency: does not drink Patient Tobacco Use Status: Never used Tobacco Advance Directives Date on File: 01/19/20 Current occupational status: disabled Sexual orientation: Straight/Heterosexual Gender identity: Female Female Reproductive History Menstrual Age of Menarche: 7 Review of Systems Const Details: Review of Systems Constitutional: Denies fever, chills, weight loss ENT: Denies vision changes, eye pain or eye redness, dental caries, dry mouth GI: Denies nausea, vomiting, diarrhea, abdominal pain, change in BM Pulm: Denies SOB, BATISTA, hemoptysis, wheezing Cards: Denies chest pain, palpitations Skin: Denies Raynaud's, rash, nail changes, photosensitivity, GREY ROLL WORKER: Denies headaches, weakness, paresthesias, recurrent falls MSK: as per HPI All other systems reviewed and are unremarkable except noted above Physical Exam Vital Signs: Last Vital Signs Pulse 68 07/01/24 11:25 BP 122/70 07/01/24 11:25 Pulse Ox 97 03/20/25 11:25 Oxygen Delivery Method Room Air 07/01/24 11:25 BMI result Body Mass Index 27.6 Vital signs reviewed Physical Examination CONSTITUITIONAL Patient alert and cooperative. Well appearing and in no apparent painful distress HEENT Conjunctiva and sclera clear. ?Pupils equal round and reactive to light. ?No lymphadenopathy. ? CHEST/RESPIRATORY SYSTEM Normal respiratory effort and able to speak in complete sentences. ?Clear to aus cultation bilaterally. ?No crackles, rales, rhonchi, wheezes heard. CARDIAC SYSTEM Regular rate and rhythm. ?S1 and S2 heard no murmurs. ?Radial pulses intact bilaterally MSK Neck: Positive Spurling's test to the right. Tenderness to palpation of the paraspinal muscles of the C-spine Hands: ?Good full time staff interpreter strength bilaterally. No deformities noted. ?No synovitis noted to the MCPs, PIPs or DIPs. ?Prominent [place]berden nodes. Tenderness to palpation of the left 5th PIP over the Heberden node Wrists: ?Full range of motion at the wrists without pain. ?No tenderness to palpation or synovitis noted to the wrists. Elbows: Full range of motion without pain. No tenderness, weakness, swelling, increased warmth or erythema. Shoulders: Full range of motion without pain. No tenderness, weakness, swelling, increased warmth or erythema. Hips: Full range of motion without pain. Hip bursa: No tenderness to palpation Knees: ?Full range of motion. ?No tenderness, swelling, increased warmth or erythema.? Bilateral crepitations felt Ankles: Full range of motion. ?No tenderness, swelling, increased warmth or erythema.? Feet: ?Negative squeeze test. ?No tenderness to palpation or swelling of the MTPs. Tender points:?No tenderness to palpation of the bilateral trapezius, supraspinatus, greater trochanters, anterior costochondral junctions, bilateral gluteal areas, bilateral suboccipital muscle insertions SKIN Skin intact without rashes. Results Reviewed Results Reviewed: Immunology labs 03/12/18 08/26/20 16:25 09:00 Rheumatoid Factor < 15.0 Cycl Citrul Peptide IgG <16 SONYA Screen NEGATIVE SS-A/Ro Antibody <1.0 NEG SS-B/La Antibody <1.0 NEG Sm (Marcus) Antibody <1.0 NEG SM/ARTIFICIAL LEATHER CALENDER OPERATOR IgG Antibody <1.0 NEG Scl-70 Scleroderma Ab <1.0 NEG Centromere B Antibody <1.[address] C Spine 06/2024 FINDINGS: CERVICAL SPINE: Osseous mineralization is normal. The vertebral bodies maintain normal height without evidence of fracture or subluxation. There is straightening of the normal cervical lordosis. There is mild to moderate degenerative disc disease at the C5-6 level with disc space narrowing and osteophyte formation. There is uncovertebral joint hypertrophy at this level causing probable bilateral neural foraminal stenosis. The remaining intervertebral disc spaces are maintained. Evaluation for disc pathology is limited by lack of intrathecal contrast material. BRAIN: The visualized portion of the brain is unremarkable. SINUSES: The visualized paranasal sinuses, mastoid air cells and middle ear cavities are unremarkable. LUNG APICES: The visualized lung apices are clear. SOFT TISSUES: The visualized paraspinal soft tissues are unremarkable. IMPRESSION: Straightening of the normal cervical lordosis. Mild to moderate degenerative disc disease at the C5-6 level as described. XR Bilateral Wrists and Hands 12/2023 FINDINGS: Right wrist: No acute fracture or dislocation. Mild radial carpal joint space narrowing with tiny marginal osteophytes, unchanged. No osseous erosion. No abnormal soft tissue calcification. Left wrist: No acute fracture or dislocation. Mild radiocarpal joint space narrowing with tiny marginal osteophytes, unchanged. No osseous erosion. No abnormal soft tissue calcification. Right hand: Severe first carpometacarpal joint space narrowing with bony remodeling and marginal osteophytes, progressed when compared to the prior examination. More moderate triscaphe osteoarthritis, also progressed. Additional joint space narrowing with small marginal osteophytes throughout the interphalangeal joints, slightly progressed. No new osseous erosion. No fracture or dislocation. No abnormal soft tissue calcification. Left hand: Moderate first carpometacarpal joint space narrowing with marginal osteophytes, progressed when compared to the prior examination. More mild triscaphe osteoarthritis. Additional joint space narrowing with marginal osteophytes throughout the interphalangeal joints, progressed when compared to the prior examination. Central erosions at the third distal interphalangeal joint which are new/increased. No acute fracture or dislocation. No abnormal soft tissue calcification. IMPRESSION: RIGHT WRIST: Mild degenerative arthritis, unchanged. No new osseous erosion. LEFT WRIST: Mild degenerative arthritis, unchanged. No new osseous erosion. RIGHT HAND: Severe first carpometacarpal degenerative arthritis with bony remodeling, progressed when compared to the prior examination. More moderate triscaphe osteoarthritis, progressed. Additional degenerative arthritis throughout the interphalangeal joints, slightly progressed. LEFT HAND: Moderate first carpometacarpal degenerative arthritis, progressed when compared to the prior examination. Additional degenerative arthritis throughout the interphalangeal joints, progressed. Central erosions at the third distal interphalangeal joint, which are new/increased. Assessment & Plan Assessment & Plan (1) Spondylolysis of cervical spine: Code(s): M43.02 - Spondylolysis, cervical region Plan: #C-Spine spondylosis with radiculopathy Patient is a 59-year-old female with fibromyalgia here today for follow up. Currently experiencing neck pain radiating down to her right arm. CT of the C- spine confirms [id number] degenerative disc disease at the C5-6 level with disc space narrowing and osteophyte formation. Recommended patient follow up with her spine doctors. At this time there is nothing further that I can offer her. I will increase her Lyrica to see if this will help and she is to continue her cyclobenzaprine and naproxen Plan - Increase pregabalin to 150mg PO bid - Continue naproxen and cyclobenzaprine from other providers - RTC 6 months Plan I spent 23 minutes reviewing the record and labs, taking a history, examining the patient, discussing the treatment plan, ordering diagnostic work up and documenting in the medical record Medications: New naproxen 500 mg PO BID Changed From pregabalin 100 mg PO BID M79.7 - Fibromyalgia To pregabalin 150 mg (1.5 x 100 mg) PO BID 90 days 270 caps 1RF M79.7 - Fibromyalgia Leanna Carter MD Coding Level of Care Code Est Pt Level 3 (43855) Diagnoses Spondylolysis of cervical spine M43.02
[2024-07-01 11:25] VITALS: BP 122/70; PULSE 68; O2SAT 97; BMI 27.6
--- OUTSIDE RECORDS SUMMARY | 2024-07-01 13:10 | XMS_ITS | Encounter Summary ---
Author Organization [employer] Address [address] [place] [address] Care Team Providers Care Circular Tank Cooper Name Role Phone Anthony Moreno MD Primary Care Provide r Reason for Visit * Reason Onset Date Comments Chart Prep 06/03/2024 Encounter Details Date Type Department Care Team ([facility] Contact Info) Description 06/03/2024 Telephone [facility] MED[facility]INE [address], [place] [phone] Anthony Moreno MD [address] [place] [address] Chart Prep Social History Tobacco Use Types [...] 07/05/2024 10:00 AM EDT Office Visit [facility] ADULT DENTAL [address] [place] [address] Ev, Yary [address] [place] [address] documented as of this encounter Visit Diagnoses Not on filedocumented in this encounter Additional Health Concerns Assessment Noted Time PHQ-9 Depression Total Score: 1 08/19/19 24 1:27 PM EDT documented as of this encounter Care Teams Circular Tank Cooper Relationship Specialty Start Date End Date Anthony Moreno MD [address] [place] [address] PCP - General Internal Medicine 03/07/14 documented as of this encounter
--- OUTSIDE RECORDS SUMMARY | 2024-07-01 13:10 | XMS_ITS | Clinical Summary ---
Author Organization [employer] Address [address] [facility] 7t [place] [address] Care Team Providers Care Assistant Designer Name Role Phone Anthony Moreno MD [...] Under the care of Dr gary Lovett BUCKLE INSPECTOR , last seen 05/2024 She is now [...] synovitis on exam. She refused injection from Machinist Supervisor. She had surgery on the right elbow for nerve pain and wants to he the left hand done. 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 Hand pain to the right is resolved, X-rays from 2022 showed osteoarthritis. No synovitis on exam. She refused injection from Machinist Supervisor. She had surgery on the right elbow for nerve pain and wants to he the left hand done. Machinist Supervisor recommended to continue with Tylenol and over [...] Evaluated by ENT ( [facility]) last seen 11/26/2023 They obtained a brain MRI and IACs at [facility] ) that was read as normal for [...] neg, NILM, 04/03/[address] Lovett [facility] Colonoscopy: 08/17/2013 Dr. Smith. Repeat 03/09/2024 Dr Kaba at [facility] Normal aside from hemorrhoids, 10 yr follow up recommended Vaccines: Td: 06/07/2011 Declines booster Dexa scan: 05/25/2010. Assessment & Plan (11/27/2023 2:55 PM EDT): Mammogram: 03/14/2023 Normal Pap Smear: HPV neg, NILM, 04/03/[address] Lovett [facility] Colonoscopy: 08/17/2013 Dr. Smith. Scheduled for Feb 2024 for a repeat. Vaccines: Td: 06/07/2011 Declines booster Dexa scan: 05/25/2010. Assessment & Plan (01/16/2023 3:01 PM EDT): Mammogram: 03/11/2022 BIRADS 3, due Feb 2023 Pap Smear: HPV neg, NILM, 04/03/[address] Lovett [facility] Colonoscopy: 08/17/2013 Dr. Smith Vaccines: Td: 06/07/2011 Dexa scan: 05/25/2010. Assessment & Plan (08/06/2022 2:21 PM EDT): Mammogram: 03/11/2022 BIRADS 3, due Feb 2023 Pap Smear: HPV neg, NILM, 04/03/[address] Lovett [facility] Colonoscopy: 08/17/2013 Dr. Smith Vaccines: Td: 06/07/2011 [...] beneficial Previous visit she was referred to [facility]. Pt tells me she was seen and received a steroid injection Assessment & Plan (04/16/2022 1:24 PM EST): Hx of rotator cuff injury, c/o worsening pain, would like to try a steroid injection that in the past was beneficial Will refer to [facility] Donte toenail 04/16/2022 Assessment & Plan (03/02/2024 2:48 PM EST): S/p removal by Dr. Mack Perdue Assessment & Plan (01/06/2024 10:17 AM EDT): Previously referred to podiatry but patient unable to see them due to the fact thay they had no drama therapist. Pt is requesting to have the toenail [...] a Hx of severe anxiety. follows at [facility]. On Klonopin 0.5 mg po qd prn for anxiety. Chronic low back pain 01/14/2012 Assessment & Plan (08/06/2022 2:24 PM EDT): follows at [facility], receives epidural injections intermittently. Fibromyalgia 01/14/2012 Assessment [...] 2.02 Used to follow with Endocrinology at [facility] Endocrinology. She is on Synthroid 88 mcg po daily. Plan: Continue with current regimen Pt tells me the Financial Services Counselor already told her there was no need to f/u with them to only follow with us Assessment & Plan (08/19/2023 1:26 PM EDT): Pt here for a f/u Most recent TSH 06/18/2023 elevated at 9.46 Used to follow with Endocrinology at [facility] Endocrinology. She is on Synthroid 88 mcg po daily. Plan: Will repeat and if still elevated will increase it to 100 mcg po daily Pt tells me the Financial Services Counselor already told her there was no need to f/u with them to only follow with us Plan: continue current regimen. Will repeat TSH Assessment & Plan (06/17/2023 2:07 PM EST): Pt here for a f/u Most recent TSH 01/27/2023 elevated at 6.02 Used to follow with Endocrinology at [facility] Endocrinology. She was on Synthroid 75 mcg po daily. I increased it to 88 mcg po daily Pt tells me the Financial Services Counselor already told her there was no need to f/u with them to only follow with us Plan: continue current regimen. Will repeat TSH Assessment & Plan (01/16/2023 3:46 PM EDT): Pt here for a f/u Most recent TSH 03/27/2022 wnl Used to follow with Endocrinology at [facility] Endocrinology. She is currently on Synthroid 75 mcg po daily. Pt tells me the Financial Services Counselor already told her there was no need to f/u with them to only follow with us Plan: continue current regimen. Will repeat TSH Assessment & Plan (08/06/2022 2:27 PM EDT): Pt here for a f/u Most recent TSH 03/27/2022 wnl Used to follow with Endocrinology at [facility] Endocrinology. She is currently on Synthroid 75 mcg po daily. Pt tells me the Financial Services Counselor already told her there was no need [...] Encounters Date Type Department Care Team Description 07/01/2024 Refill [facility] [address] [place] [phone] Antonia Reeder ANP Seasonal allergies 06/29/2024 Orders Only [address] [address] Anthony Moreno MD Neck pain (Primary Dx) 06/28/[address] [address] Anthony Moreno MD ER Follow-up; Referral 06/25/2024 Orders Only [facility] External Provider, [facility] 06/25/2024 Population Health Risk Score Community [facility] (C3) Department [address] [place] [address] Provider, Population Health Generic 06/17/2024 2:30 PM EST Office Visit [facility] [address] [place] [phone] Anthony Moreno MD Routine physical examination (Primary Dx); Postmenopausal bleeding; Bronchiectasis without complication (CMS/HCC); Liver lesion; Overweight (BMI 25.0-29.9); Peripheral polyneuropathy; Vascular insufficiency; Preventative health care 06/17/2024 Refill [facility] [place] [place] [address] Anthony Moreno MD Peripheral polyneuropathy 06/17/2024 Travel 06/14/2024 Refill [facility] [place] [place] [address] Anthony Moreno MD 06/08/2024 Patient Outreach [facility] [place] [address] Anthony Moreno MD Pre-visit Planning (SDOH Screening negative and Tobacco screening negative) 06/03/2024 Telephone [facility] [place] [address] Anthony Moreno MD Chart Prep 05/14/2024 Orders Only GENERIC EXTERNAL DATA DEPARTMENT Provider, Generic External Data 05/11/2024 Refill [facility] [place] [address] Anthony Moreno MD 05/10/2024 Telephone [facility] [place] [address] Anthony Moreno MD 04/13/2024 Patient Outreach [facility] [place] [address] Anthony Moreno MD Care Coordination ([facility]/graduate) 04/13/2024 Telephone [facility] [place] [address] Leonel Rasmussen, LISETTE Care Management (C3[facility]- f/u call) 04/09/2024 Orders Only [facility] [place] [place] [address] Anthony Moreno MD from Last 3 Months Immunizations Name Administration [...] [facility] ADULT DENTAL [address] [place] [address] Ev, Yary [address] [place] [address] Health Maintenance Due Date Last Done Comments [...] Full Mouth 11/22/2023 11/20/2020 COVID-19 Vaccine ( - season) 2023 10/28/2020, 10/06/2020 Influenza Vaccine (#1) [...] EDT Narrative 06/25/2024 1:01 PM EDT ? [facility] ?[address] ?[place] [address] ? CT Scan Report ? Signed ? Patient: Benjamin James,Steffanie ?MR#: MM ?? [id number] ? : 1965 ?Acct:[id number] ? Age/Sex: 59 / F ?ADM Date: 06/25/24 ? Loc: HO.ED ? Attending Dr: ? Ordering Physician: Saloni Rodriguez NP ?? Date of Service: 06/25/24 ?? Procedure(s): CT cervical spine wo IV con ?? Accession Number(s): [id number] ? cc: Anthony Blevins MD; Saloni Rodriguez NP ? Report Number: ?? [id number]: Total DLP = ??361.00 mGy-cm ?? EXAMINATION: [...] DD/ 1230 ? TD/TT: 06/25/24 1249 ? Tax Representative: ? Procedure Note Lucía Dacosta - 06/25/[address] [place] [address] [address] Scan Report Signed Patient: Steffanie EsquivelMR#: [id number] : 1965Acct:[id number] Age/Sex: 59 / FADM Date: 06/25/24 Loc: HO.ED Attending Dr: Ordering Physician: Saloni Rodriguez NP Date of Service: 06/25/24 Procedure(s): CT cervical spine wo IV con Accession Number(s): [id number] cc: Anthony Blevins MD; Saloni Rodriguez NP Report Number: [id number]: Total DLP = 361.00 mGy-cm EXAMINATION: CT [...] 06/25/24 1258 DD/ 1230 TD/TT: 06/25/24 1249 Tax Representative: [facility] External Provider IMG CT PROCEDURES Final Result * Hematoxylin and Eosin Stain (05/14/2024 9:28 AM EST) 05/14/2024 9:28 AM EST 05/14/2024 11:10 AM EST [facility] LABS - 05/17/2024 5:33 PM EST ----- ------- Name: Steffanie Esquivel ? Age/Sex: 59/F ? : 1965 Unit#: [id number] ?? Attend Dr: Gary Lovett MD ?Re05/14/24 ?Status: DEP SDC ? Location: HO.SSS ?Disch: ? ----- ------- SPEC : [id number] ?RECD: 05/14/24 ? STATUS: ??SOUT ? REQ NUM: [id number] ? RAIMUNDO: 05/14/24 ? SUBM DR: Gary [...] ? Age/Sex: 59/F ? : 1965 Unit#: [id number] ?? Attend Dr: Gary Lovett MD ?Re05/14/24 ?Status: DEP SDC ? Location: HO.SSS ?Disch: ? ----- ------- SPEC : [id number] ?RECD: 05/14/24 ? STATUS: ??SOUT ? REQ NUM: [id number] ? RAIMUNDO: 05/14/24-927 ? SUBM DR: Gary Lovett MD ? ENTERED: ??05/14/24-1116 ?SP TYPE: Surgical ? OTHR DR: Anthony Blevins MD ?? ORDERED: ??HE Stain/6, Gross Micro L4/3 ? Gross Description ?(Continued) cassette [facility] Copies To: ?? Anthony Blevins MD ?? [facility] ?? [address] ?? [place] [address] ?? [phone] ?? Gary Lovett MD ?? [facility] Women's Services ?? [address] ?? [place] [address] ?? [phone] ----- ------- Signed (signature on file) Edwige Andrew MD 05/17/24 5733 ? ----- ------- ? END OF REPORT ? us Generic External Data Provider LAB BLOOD ORDERAB LES Final Result [facility] [address] [place] [address] [phone] * BI US Breast Limited Bilateral (04/09/2024 10:45 AM EST) Anatomical Region Laterality Modality Breast Bilateral Ultrasound 04/09/2024 10:4 5 AM EST Narrative 04/09/2024 11:01 AM EST ? [facility] ? [address] ?[place] [address] ? Ultrasound Report ? Signed ? Patient: Steffanie Esquivel ?MR#: MM ?? [id number] ? : 1965 ?Acct:[id number] ? Age/Sex: 59 / F ?ADM Date: 04/09/24 ? Loc: HO.MAMMO ? Attending Dr: Anthony Blevins MD ? Ordering Physician: Anthony Blevins MD ?? Date of Service: 04/09/24 ?? Procedure(s): US breast BI limited mamm only ?? Accession Number(s): [id number] ? cc: Anthony Blevins MD ? EXAMINATION: [...] of visit by the ?? technologist. ? US/ breast BI limited mamm only ?? IMPRESSION: ?? Bilateral breasts: Negative. ? ASSESSMENT: ? BI-RADS BI-RADS 1 - Negative ? RECOMMENDATION: ?? 1 year F/U ? This patient's information was entered into a reminder system with a ?? target due date for their next mammogram. ? Electronically signed by: ??Priya Self DO ??04/09/2024 10:58 AM EST ?? RP ? Dictated By: ?Priya Self DO ? Signed By: ?<Electronically signed by Priya Self, DO in OV> ? 04/09/24 1058 ? DD/ 1045 ? TD/TT: 04/09/24 1057 ? Tax Representative: ? Procedure Note Olesya, Image - 04/09/2024 [facility] [address] [place] [address] Ultrasound Report Signed Patient: Jalyn Esquivel#: MM [id number] : 1965Acct:[id number] Age/Sex: 59 / FADM Date: 04/09/24 Loc: STEPHANIE Attending Dr: Anthony Blevins MD Ordering Physician: Atnhony Blevins MD Date of Service: 04/09/24 Procedure(s): breast BI limited mamm only Accession Number(s): [id number] cc: Anthony Blevins MD EXAMINATION: MM DIAGNOSTIC [...] 04/09/24 1058 DD/ 1045 TD/TT: 04/09/24 1057 Tax Representative: Anthony Muller MD IMG US PROCEDURES Fin al Result * BI Mammogram Diagnostic Tomosynthesis Bilateral (04/09/2024 10:15 AM EST) Anatomical Region Laterality Modality Breast Bilateral Mammography 04/09/2024 10:1 5 AM EST Narrative 04/09/2024 11:01 AM EST ? [facility] ? [address] ?[place] [address] ? Mammography Report ? Signed ? Patient: Benjamin James,Steffanie ?MR#: MM ?? [id number] ? : 1965 ?Acct:[id number] ? Age/Sex: 59 / F ?ADM Date: 12/27/24 ? Loc: HO.MAMMO ? Attending Dr: Anthony Blevins MD ? Ordering Physician: Anthony Blevins MD ?Resu ?? lts: 1Negative ? Date of Service: 04/09/24 ?Follow Up: 1 Year From Orig ?? inal Mammogram ? Procedure(s): MM tomosynthesis diagnostic BI ?? Accession Number(s): [id number] ? cc: Anthony Blevins MD ? EXAMINATION: [...] DD/ 1015 ? TD/TT: 04/09/24 1030 ? Tax Representative: ? Procedure Note Olesya, Image - 04/09/2024 [facility] [address] [place] [address] [place] [address] Mammography Report Signed Patient: Steffanie EsquivelMR#: MM [id number] : 1965Acct:[id number] Age/Sex: 59 / FADM Date: 04/09/24 Loc: HO.MAMMO Attending Dr: Anthony Blevins MD Ordering Physician: Anthony Blevins MDResu lts: 1Negative Date of Service: 04/09/24Follow Up: 1 Year From Orig inal Mammogram Procedure(s): MM tomosynthesis diagnostic BI Accession Number(s): [id number] cc: Anthony Blevins MD EXAMINATION: MM DIAGNOSTIC [...] 04/09/24 1058 DD/ 1015 TD/TT: 04/09/24 1030 Tax Representative: us Anthony Muller MD IMG BI PROCEDURES Fin al Result * Pap Smear (03/17/2024 9:55 AM EST) 03/17/2024 9:55 AM EST 03/18/2024 8:20 AM EST [facility] LABS - 03/24/2024 10:20 AM EST ----- ------- Name: Steffanie Esquivel ? Age/Sex: 59/F ? : 1965 Unit#: [id number] ?? Attend Dr: Gary Lovett MD ?Re03/17/24 ?Status: DEP REF ? Location: HO.LNP ?Disch: ? ----- ------- SPEC : [id number] ?RECD: 03/18/24 ? STATUS: ??SOUT ? REQ NUM: [id number] ? RAIMUNDO: 03/17/24 ? SUBM DR: Gary [...] Copies To: ?? Anthony Blevins MD ?? [facility] ?? [address] [facility] ?? [place] [address] ?? [phone] ?? Gary Lovett MD ?? [facility] Women's Services ?? [address] ?? [place] [address] ?? [phone] ----- ------- Signed (signature on file) RYAN Candelario (ASCP) 03/24/24 1020 ? ----- ------- ? END OF REPORT ? Generic External Data Provider LAB CYTOLOGY ORDE RABLES Final Result Performing Organization Address [facility] Co de Phone Number [facility] [address] [place] [phone] * Hm Colonoscopy (03/09/2024 9:14 AM EST) Colonoscopy Normal Normal 03/09/2024 9:14 AM EST Historical Provider HEALTH MAINTENANCE Final Result * Hepatitis C Antibody with Reflex to HCV, RNA, Quantitative, Real-Time PCR (01/27/2023 1:47 PM EDT) Pathologist [facility] Hepatitis C Antibody Nonreactive Nonreactive [facility] Comment:Antibodies to HCV no t detected; does not exclude early acuteHCV infection. Blood Venous blood specimen / Unknown 01/27/2023 1:47 PM EDT 01/27/2023 1:47 PM EDT Anthony Muller MD LAB BLOOD ORDERABLES Final Result Performing Organization Address [facility] de Phone Number [facility] [address] [place] [phone] * HPV E6/E7 RFLX MIKAL 16 18/45 (04/03/2021 3:12 PM EST) Pathologist [facility] HPV mRNA E6/E7 rflx Not Detected Not Detected [facility] Comment: Methodology: Inseamer-Mediated Amplification This assay detects E6/E7 viral messenger RNA (mRNA) from 14 high-risk HPV types (16,18,31,33,35,39,45,51,52,56,58,59,66,68). The analytical performance characteristics of this assay have been determined by [employer]. The modifications have not been cleared or approved by the FDA. This assay has been validated pursuant to the CLIA regulations and is used for clinical purposes. For additional information, please refer to http://education.oohilove/faq/WGK214r5 (This link if provided for information/ educational purposes only.) THIS TEST WAS PERFORMED AT: [facility] [address] [place] [address] [address] [place], [place] ??[address] FABRICIO SINHA MD 04/03/2021 3:12 PM EST Gary Lovett MD HISTORICAL/NON ORDERABLE LABS Fi nal Result [facility] [address] from Last 3 Months or Most Recently Relevant to Health Maintenance Insurance [address] [place] [address] DENTAL-[facility] MEDICAID STAND ADULT [facility] C3 DENTAL-[facility] MEDICAID STAND ADULT Care Teams Assistant Designer Relationship Specialty Start Date End Date Anthony Moreno MD [address] [place] [address] PCP - General Internal Medicine 03/07/14
--- OUTSIDE RECORDS SUMMARY | 2024-07-01 13:10 | XMS_ITS | Encounter Summary ---
Author Organization [employer] Address [address] 7t [place] [address] Care Team Providers Care Patrol Sergeant Sheriff'S Office Name Role Phone Anthony Moreno MD Primary Care Provide r Reason for Visit * Reason Comments Med Refill Encounter Details Date Type Department Care Team ([facility] st Contact Info) Description 07/01/2024 Refill [facility] [address] [place], [place] [phone] Antonia Reeder, ANP [address] [place], [place] [phone] Seasonal allergies Social History Tobacco Use Types Packs/Day Years [...] Description 07/05/2024 10:00 AM EDT Office Visit [facility] ADULT D[facility] [address] [place] [address] Ev, Yary [address] [place] [address] documented as of this encounter Visit Diagnoses Diagnosis Seasonal allergies Allergic rhinitis, cause unspecified documented in this encounter Additional Health Concerns Assessment Noted Time PHQ-9 Depression Total Score: 5 06/18/19 25 2:26 PM EST documented as of this encounter Care Teams Patrol Sergeant Sheriff'S Office Relationship Specialty Start Date End Date Anthony Moreno MD [address] [place] [address] PCP - General Internal Medicine 03/07/14 documented as of this encounter
--- OUTSIDE RECORDS SUMMARY | 2024-07-01 13:10 | XMS_ITS | Clinical Summary ---
Author Organization [address] [facility] Address [address] [place] [address] Phone Care Team Providers Care Nuclear Spectroscopist Name Role Phone Anthony Blevins MD Primary [...] AM EDT Office Visit Orthopedic Surgery - [address] [place] [address] Jesus Alberto Welch MD Arthritis [...] topic Insurance MEDICAID - [place] Care Teams Nuclear Spectroscopist Relationship Specialty Start Date End Date Anthony Blevins MD [address] [place] [phone] PCP - General 01/12/24
--- OUTSIDE RECORDS SUMMARY | 2024-07-01 13:10 | XMS_ITS | Encounter Summary ---
Demographics Address [address] [place] [address] Mobile Phone Home Phone Preferred Language es Marital Status Single Mandaeism Affiliation Unknown Race Other Race Ethnic Group or Author Organization [employer] Address [address] [place] [address] Care Team Providers Care Wire Rigger Name Role Phone Anthony Moreno MD Primary Care Provide r Encounter Details Date Type Department Care Team ([facility] Contact Info) Description 06/25/2024 Orders Only [facility] External Provider, [facility] Social History Tobacco Use Types Packs/Day Years [...] Description 07/05/2024 10:00 AM EDT Office Visit [facility] ADULT DENTAL [address] [place] [address] Ev Yary [address] [place] [address] documented as of this encounter Procedures Procedure Name Priority Date/Time Associated Diagnosis Comments CT CERVICAL SPINE WO CONTRAST Routine 06/25/2024 12:30 PM EDT documented in this encounter Results * CT Cervical Spine w/o Contrast (06/25/2024 12:30 PM EDT) Anatomical Region Laterality Modality Spine, C-spine Computed Tomogra phy 06/25/2024 12:3 0 PM EDT Narrative 06/25/2024 1:01 PM EDT ? [facility] ?[address] ?[place] [address] ? CT Scan Report ? Signed ? Patient: Benjamin James,Steffanie ?MR#: MM ?? [id number] ? : 1965 ?Acct:[id number] ? Age/Sex: 59 / F ?ADM Date: 03/14/25 ? Loc: HO.ED ? Attending Dr: ? Ordering Physician: Saloni Rodriguez NP ?? Date of Service: 06/25/24 ?? Procedure(s): CT cervical spine wo IV con ?? Accession Number(s): [id number] ? cc: Anthony Blevins MD; Saloni Rodriguez NP ? Report Number: ?? [id number]: Total DLP = ??361.00 mGy-cm ?? EXAMINATION: [...] DD/ 1230 ? TD/TT: 06/25/24 1249 ? Orthopedic Assistant: ? Procedure Note Olesya, Image - 06/25/[address] [address] [address] Scan Report Signed Patient: Steffanie EsquivelMR#: MM [id number] : 1965Acct:[id number] Age/Sex: 59 / FADM Date: 06/25/24 Loc: HO.ED Attending Dr: Ordering Physician: Saloni Rodriguez NP Date of Service: 06/25/24 Procedure(s): CT cervical spine wo IV con Accession Number(s): [id number] cc: Anthony Blevins MD; Saloni Rodriguez NP Report Number: [id number]: Total DLP = 361.00 mGy-cm EXAMINATION: CT [...] 06/25/24 1258 DD/ 1230 TD/TT: 06/25/24 1249 Orthopedic Assistant: [facility] External Provider IMG CT PROCEDURES Final Result documented in this encounter Visit Diagnoses Not on filedocumented in this encounter Additional Health Concerns Assessment Noted Time PHQ-9 Depression Total Score: 5 06/18/19 25 2:26 PM EST documented as of this encounter Care Teams Wire Rigger Relationship Specialty Start Date End Date Anthony Moreno MD [address] [place] [phone] PCP - General Internal Medicine 03/07/14 documented as of this encounter
--- OUTSIDE RECORDS SUMMARY | 2024-07-01 13:10 | XMS_ITS | Encounter Summary ---
Author Organization [employer] Address [address] 7[address] [place] [address] Care Team Providers Care Health Companion Name Role Phone Anthony Moreno MD Primary Care Provide r Encounter Details Date Type Department Care Team ([facility] st Contact Info) Description 05/10/2024 Telephone [facility] [address] [place], [place] [phone] Anthony Moreno MD [address] [place], [place] [phone] Social History Tobacco Use Types Packs/Day Years [...] Description 07/05/2024 10:00 AM EDT Office Visit [facility] ADULT DENTAL [address] [place] [address] Ev, Yary [address] [place] [address] documented as of this encounter Visit Diagnoses Not on filedocumented in this encounter Additional Health Concerns Assessment Noted Time PHQ-9 Depression Total Score: 1 08/19/19 24 1:27 PM EDT documented as of this encounter Care Teams Health Companion Relationship Specialty Start Date End Date Anthony Moreno MD [address] [place] [address] PCP - General Internal Medicine 03/07/14 documented as of this encounter
--- OUTSIDE RECORDS SUMMARY | 2024-07-01 13:10 | XMS_ITS | Data Portability ---
Author Organization [place] [facility], Allergy Address [address] [place] [phone] Care Team Providers Care Rigging Man Name Role Phone SOPHIE KIM Primary Care [...] AUDITORY CANAL, W/WO CONTRAST 2023 024 [facility] ([facility]), [address], [place], [address], 12:39:15 Medication Orders None recorded. Patient TargetsNo [...] contr ast No observ ation record ed. [email or web address] [facility] 26 [facility] [place], [address], 09/24/2023 15:40:17 12/03/19 24 09/04/2023 imagi ng/di agnos tic resul t No observ ation record ed. [email or web address] Not Available 20:41:55 Result Notes None recorded. 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, including 'globus hystericus '; Note: Date Diagnosed: 03/04/2018 3:21 PM (F45.8) Not Available [facility] 4 03:26:41 Gastroeso phageal reflux disease without esophagit is 552595979 Active 2017 Gastro-eso phageal reflux disease without esophagiti s; Note: Date Diagnosed: 03/04/2018 3:24 PM (K21.9) Not Available [facility] 4 03:26:41 Dysphagia 88325738 Active 2017 Other dysphagia; Note: Date Diagnosed: 03/04/2018 3:21 PM (R13.19) Not Available [facility] 4 03:26:41 Sensorine ural hearing loss of bilateral ears 854225229 Active 2023 MAYO TADEO, YASMIN 100 [facility],[place] [address], [place], [address] , [place] - [facility] 4 11:10:51 Vertigo 296945307 Active 2023 DIPTI BLOOD PA-C 100 [facility] 100, [place], [address] , [place] - [facility] 4 11:46:48 Migrainou s vertigo 173929582 Active 2023 DIPTI BLOOD PA-C 100 [facility] 100, [place], [address] , [place] - [facility] 4 15:38:23 Bilateral earache 606275939 Active 2023 DIPTI BLOOD PA-C [address] [place],[facility] 100, [place], [address] , [facility] - [facility] 11:22:43 Temporoma ndibular joint disorder 98563404 Active 2023 DIPTI BLOOD PA-C [address] [place],[facility] 100, [place], [address] , [facility] - [facility] 11:23:02 Problem Notes None recorded. Procedures Surgical History Date Name Laterality Status Provider Name and Address Organization Details Recorded Time Comp Audio with Tymps & Reflexes (17526 & 68465) completed YASMIN STEVENSON 100 [facility], [place],[facility] 100, [place], [address], [facility] - [facility] 09/04/2023 11:10:42 Imaging Results Imaging Date Name Status LastModified by Organiz ation Details LastModified Time 09/22/2023 MRI, brain + internal auditory canal, w/wo contrast completed [email or web address] [facility] [address] [place], [address], 09/24/2023 15:40:17 09/04/2023 imaging/diagn ostic result completed [...] mcg tablet 2016 active Medicati on ID: [id number] D uration Value: 30 Brand Name: levothyr [...] Note 1291 DIPTI BLOOD PA-C [facility] [address] [address] 09/04/2023 10:26:40 09/04/2023 12:03:25 Sensorineural hearing loss of bilateral ears 440808555 H90.3 Audiologic al evaluation results:Ri ght ear:{{Norm [...] 1kHz, AD, and contra 1kHz, . Vertigo 306783431 R42 Associated pre-syncop e and arm weakness Migrainous vertigo 64456 4007 H81.8X9 01604 COLE SANTORO MD [facility] [address] [address] 11/26/2023 10:49:19 11/26/2023 11:27:05 Bilateral earache 239304248 H92.03 Temporoman dibular joint disorder 69220531 M26.609 Migrainous vertigo 16304 4007 H81.8X9 Health Concerns Section Related Observation LastModified by Organization Detai ls LastModified Time None Recorded Concern Status LastModified by Organization Details LastModified Time None Recorded Advance Directives Directive None Recorded Payers Encounter Date Sequence Insurance Name Policy Number Policy Abraham Covered Member ID Abraham Member ID Guarantor Name 09/04/2023 1 [place] [facility] Steffanie Benjamin James [id number] Steffanie Benjamin 11/26/2023 1 [place] [facility] Steffanie Benjamin James [id number] Steffanie Benjamin Notes Date Note Type Note [...] sugar in the diet. DIPTI BLOOD PA-C [address] [place] [address], [phone], [facility] - [facility] 09/04/2023 15:39:50 11/26/2023 text/html 58 year [...] jaw pops and cracks. COLE PICKENS MD [address] [place] [address], [place], [address], [place] - [facility] 11/26/2023 13:04:47 OBGyn Episode No OBEpisode recorded.
--- OUTSIDE RECORDS SUMMARY | 2024-07-01 13:10 | XMS_ITS | Encounter Summary ---
Author Organization [facility] Address [address] [address] 7t [place] [address] Care Team Providers Care Office Assistance Name Role Phone Anthony Moreno MD Primary Care Provide r Reason for Visit * Reason Onset Date Comments ER Follow-up 06/28/2024 Referral 06/28/2024 Encounter Details Date Type Department Care Team ([facility] st Contact Info) Description 06/28/2024 Telephone [facility] MEDICINE [address] [place], [place] [phone] Anthony Moreno MD [address] [place] [address] ER Follow-up; Referral Social History Tobacco Use [...] Telephone Encounter - Arianne Baumann RN - 06/30/2024 9:10 AM EDT TC placed to pt with a plant buyer to inform that PCP placed a referral for physical therapy. Pt advised that she will be contacted regarding setting up the appt within the next week or so. Pt agreeable to this information and had no further questions or concerns. * Telephone Encounter - Arianne Baumann RN - 06/28/2024 2:41 PM EDT TC placed to pt with [facility] clinical appeals rn #[id number] to follow up on pt recent visit to [facility] on 06/25/2024 for neck and musculoskeletal pain. The pt was discharge with instructions to use Ibuprofen and Tylenol for pain along with Flexeril to relax the muscle. Pt has been following this advise and keeping the neck in a fixed position as much as possible. Pt was further advised to have [facility] any other specialist that PCP deems appropriate to assist pt with her current nerve/muscular pain. Pt is recovering well at home and did not find an office follow up necessary but would like PCP to place this referral in the meantime. Pt informed that this information will be sent to PCP for review. * Telephone Encounter - Aric Agustín - 06/28/2024 1:35 PM EDT Patient calling to report ED visit on : Date: 06/25/24 Hospital: [facility] Seen for: Neck pain Pt DX with Neck Arthitis that radiates towrds entire back and right arm . Patient advised will forward to team nurse for follow up *pt looking for Referral to [facility] [address] [place] [phone] Is it active pt of spine and [facility] but needs new referral for current DX she has. documented in this encounter Plan of Treatment Upcoming Encounters Date Type Department Care Team (Late st Contact Info) Description 07/05/2024 10:00 AM EDT Office Visit [facility] ADULT DENTAL [address] [place] [address] Ev, Yary [address] [place] [address] documented as of this encounter Visit Diagnoses Not on filedocumented in this encounter Additional Health Concerns Assessment Noted Time PHQ-9 Depression Total Score: 5 06/18/19 25 2:26 PM EST documented as of this encounter Care Teams Office Assistance Relationship Specialty Start Date End Date Anthony Moreno MD [address] [place] [address] PCP - General Internal Medicine 03/07/14 documented as of this encounter
--- OUTSIDE RECORDS SUMMARY | 2024-07-01 13:10 | XMS_ITS | Encounter Summary ---
Author Organization [employer] Address [address] [facility] 7t [place] [address] Care Team Providers Care Microsoft Access Developer Name Role Phone Anthony Moreno MD Primary Care Provide r Reason for Visit * Reason Comments Pre-visit Planning SDOH Screening negat leo and Tobacco screening negative Encounter Details Date Type Department Care Team ([facility] Contact Info) Description 06/08/2024 Patient Outreach [facility] MEDICINE [address] [place], [place] [phone] Anthony Moreno MD [address] [place] [address] Pre-visit Planning (SDOH Screening negative and Tobacco [...] Wednesdays, and Walk-In Urgent Care Located in [facility]. Patient advised to bring to appointment a photo id and insurance card. Appropriate screenings completed in anticipation of appointment. documented in this encounter Plan of Treatment Upcoming Encounters Date Type Department Care Team (Late st Contact Info) Description 07/05/2024 10:00 AM EDT Office Visit [facility] ADULT DENTAL [address] [place] [address] Ev, Yary [address] [place] [address] documented as of this encounter Visit Diagnoses Not on filedocumented in this encounter Additional Health Concerns Assessment Noted Time PHQ-9 Depression Total Score: 1 08/19/19 24 1:27 PM EDT documented as of this encounter Care Teams Microsoft Access Developer Relationship Specialty Start Date End Date Anthony Moreno MD [address] [place] [address] PCP - General Internal Medicine 03/07/14 documented as of this encounter
--- OUTSIDE RECORDS SUMMARY | 2024-07-01 13:10 | XMS_ITS | Encounter Summary ---
Author Organization [facility] Address [address] [facility] 7t [place] [address] Care Team Providers Care Laboratory Coordinator Name Role Phone Anthony Moreno MD Primary Care Provide r Encounter Details Date Type Department Care Team (Latest Contact Info) Description 06/24/2018 Abstract [facility] CONVERSIONS Dental, Provider, DDS Social History [...] Description 07/05/2024 10:00 AM EDT Office Visit [facility] ADULT DENTAL [address] [place] [address] Ev, Yary [address] [place] [address] documented as of this encounter Visit Diagnoses Not on filedocumented in this encounter Care Teams Laboratory Coordinator Relationship Specialty Start Date End Date Anthony Moreno MD [address] [place] [address] PCP - General Internal Medicine 03/07/14 documented as of this encounter
--- OUTSIDE RECORDS SUMMARY | 2024-07-01 13:10 | XMS_ITS | Encounter Summary ---
Author Organization [facility] [facility] Address [address] [facility] 7t [place] [address] Care Team Providers Care Music Instructor Name Role Phone Anthony Moreno MD Primary Care Provide r Reason for Referral * Consultation (Routine) - Authorized Specialty Diagnoses / Procedures Referred By Contsky cruz Referred To Contact Vascular Surgery Diagnoses Vascular insufficiency Anthony Moreno MD [address] [place] [address] Phone: tel: fax: [facility] Referral ID Status Reason Start Date Expiration Date Visits Requested Visits Authorized [id number] Authorized Specialty Services Required 06/17/2024 06/17/2025 6 6 Reason for Visit * Reason Comments Annual Exam Encounter Details Date Type Department Care Team ([facility] st Contact Info) Description 06/17/2024 2:30 PM EST Office Visit [facility] MEDICINE [address] [place] [address] [phone] Anthony Moreno MD [address] [place] [address] [phone] Routine physical examination (Primary Dx); Postmenopausal bleeding; [...] Under the care of Dr celine Lovett MAINTENANCE ASSOCIATE , last seen 05/2024 She is now [...] neg, NILM, 04/03/[address] Lovett [facility] Colonoscopy: 08/17/2013 Dr. Smith. Repeat 03/09/2024 Dr Kaba at [facility] Normal aside from hemorrhoids, 10yr follow up [...] Under the care of Dr celine Lovett MAINTENANCE ASSOCIATE , last seen 05/2024 She is now [...] neg, NILM, 04/03/[address] Lovett [facility] Colonoscopy: 08/17/2013 Dr. Smith. Repeat 03/09/2024 Dr Kaba at [facility] Normal aside from hemorrhoids, 10yr follow up recommended Vaccines: Td: 06/07/2011 Declines booster Dexa scan: 05/25/2010. documented in this encounter Plan of Treatment Upcoming Encounters Date Type Department Care Team (Late st Contact Info) Description 07/05/2024 10:00 AM EDT Office Visit [facility] ADULT DENTAL [address] [place] [address] Ev, Yary [address] [place] [address] Scheduled Referrals Name Type Priority Associated Diagnoses [...] documented as of this encounter Care Teams Music Instructor Relationship Specialty Start Date End Date Anthony Moreno MD [address] [place] [address] PCP - General Internal Medicine 03/07/14 documented as of this encounter
--- OUTSIDE RECORDS SUMMARY | 2024-07-01 13:10 | XMS_ITS | Encounter Summary ---
Author Organization [facility] Address [address] [facility] 7t [place] [address] Care Team Providers Care Air Vice Marshal Name Role Phone Anthony Moreno MD Primary Care Provide r Encounter Details Date Type Department Care Team (Late st Contact Info) Description 03/29/2022 Abstract [facility] MEDICINE [address] [place], [place] [phone] Anthony Moreno MD [address] [place], [place] [phone] Social History Tobacco Use Types Packs/Day Years [...] Description 07/05/2024 10:00 AM EDT Office Visit [facility] ADULT DENTAL [address] [place], [place] [phone] EvJefferyYary [address] [place], [place] [phone] documented as of this encounter Procedures Procedure Name Priority Date/Time Associated Diagnosis Comments BI MAMMOGRAM DIAGNOSTIC BILATERAL Routine 03/11/2022 3:54 PM EST documented in this encounter Results * (ABNORMAL) BI Mammogram Diagnostic Bilateral (03/11/2022 3:54 PM EST) Anatomical Region Laterality Modality Breast Bilateral Mammography Narrative 03/11/2022 3:54 PM EST Birads 3 - recommended bilateral diagnostic at time ??of annual exam in 12 months [place] [place] us Historical Provider MD HARP BI PROCEDURES Final R esult documented in this encounter Visit Diagnoses Not on filedocumented in this encounter Care Teams Air Vice Marshal Relationship Specialty Start Date End Date Anthony Moreno MD [address] [place] [address] PCP - General Internal Medicine 03/07/14 documented as of this encounter
--- OUTSIDE RECORDS SUMMARY | 2024-07-01 13:10 | XMS_ITS | Encounter Summary ---
Author Organization [employer] [address] [facility] Address [address] [facility] 7t [place] [address] Care Team Providers Care Digital Media Representative Name Role Phone Anthony Moreno MD Primary Care Provide r Reason for Referral * Consultation (Routine) - Closed Specialty Diagnoses / Procedures Referred By Contac t Referred To Contact Physical Therapy Diagnoses Neck pain Anthony Moreno MD [address] [place] [address] Phone: tel: fax: [facility] Physical Therapy [address] [place] [address] Phone: tel: fax: Referral ID Status Reason Start Date Expiration Date V isits Requested Visits Authorized [id number] Closed Specialty Services Required 06/29/2024 06/29/2025 20 20 Encounter Details Date Type Department Care Team ([facility] st Contact Info) Description 06/29/2024 Orders Only [facility] MEDICINE [address] [place] [phone] Anthony Moreno MD [address] [place], [place] [phone] Neck pain (Primary Dx) Social History Tobacco Use Types [...] 07/05/2024 10:00 AM EDT Office Visit [facility] ADULT DENTAL [address] [place] [address] Yary Carreno [address] [place] [address] Scheduled Referrals Name Type Priority Associated Diagnoses Orde r Schedule Referral to Physical Therapy Outpatient Referral Routine Neck pain Expected: 06/29/2024 (Approximate), Expires: 06/29/2025 documented as of this encounter Visit Diagnoses Diagnosis Neck pain- Primary Cervicalgia documented in this encounter Additional Health Concerns Assessment Noted Time PHQ-9 Depression Total Score: 5 06/18/19 25 2:26 PM EST documented as of this encounter Care Teams Digital Media Representative Relationship Specialty Start Date End Date Anthony Moreno MD [address] [place] [address] PCP - General Internal Medicine 03/07/14 documented as of this encounter
--- OUTSIDE RECORDS SUMMARY | 2024-07-01 13:10 | XMS_ITS | Encounter Summary ---
Author Organization [employer] Address [address] [facility] [address] 7t [place] [address] Care Team Providers Care Dogger Name Role Phone Anthony Moreno MD Primary Care Provide r Reason for Visit * Reason Comments Med Refill Encounter Details Date Type Department Care Team ([facility] st Contact Info) Description 05/14/2023 Refill [facility] MEDICINE [address] [place], [place] [phone] Anthony Moreno MD [address] [place], [place] [phone] Social History Tobacco Use Types Packs/Day Years [...] Visit [facility] ADULT DENTAL [address] [place] [address] Ev, Yary [address] [place] [address] documented as of this encounter Visit Diagnoses Not on filedocumented in this encounter Care Teams Dogger Relationship Specialty Start Date End Date Anthony Moreno MD [address] [place] [address] PCP - General Internal Medicine 03/07/14 documented as of this encounter
--- OUTSIDE RECORDS SUMMARY | 2024-07-01 13:10 | XMS_ITS | Encounter Summary ---
Author Organization [employer] Address [address] [facility] [address] 7t [place] [address] Care Team Providers Care Retail Experience Specialist Name Role Phone Anthony Moreno MD Primary Care Provide r Reason for Visit * Reason Comments Med Refill Encounter Details Date Type Department Care Team ([facility] st Contact Info) Description 06/17/2024 Refill [facility] MEDICINE [address] [place], [place] [phone] Anthony Moreno MD [address] [place], [place] [phone] Peripheral polyneuropathy Social History Tobacco Use Types [...] Visit [facility] ADULT DENTAL [address] [place] [address] Ev, Yary [address] [place] [address] documented as of this encounter Visit Diagnoses Diagnosis Peripheral polyneuropathy documented in this encounter Additional Health Concerns Assessment Noted Time PHQ-9 Depression Total Score: 5 06/18/19 25 2:26 PM EST documented as of this encounter Care Teams Retail Experience Specialist Relationship Specialty Start Date End Date Anthony Moreno MD [address] [place] [address] PCP - General Internal Medicine 03/07/14 documented as of this encounter
--- OUTSIDE RECORDS SUMMARY | 2024-07-01 13:10 | XMS_ITS | Encounter Summary ---
Author Organization [facility] Address [address] [place] [address] Care Team Providers Care Superintendent Name Role Phone Anthony Blevins MD Primary Care Provi natalia Reason for Visit * Reason Comments Follow-up Pain Encounter Details Date Type Department Care Team (Latest Contact Info) Description 06/23/2024 10:30 AM EDT Office Visit [facility] [place] [address] [facility] [address] [place] [phone] Jesus Alberto Welch MD [address] [place] [address] Arthritis of carpometacarpal (CMC) joint of left [...] seen: 03/03/24 (I left thumb cmc joint) Product Marketing Intern: Jenniffer #[id number] HPI: Steffanie James is a 59 y.o. female RHD presenting for followup regarding her left thumb CMC arthritis. She says that her injection greatly improved her thumb pain. She only occasionally has pain now with activities that require a pinch associate director. She did notice some hypopigmentation at the [...] Primary documented in this encounter Care Teams Superintendent Relationship Specialty Start Date End Date Anthony Blevins MD [address] [place] [address] PCP - General 01/12/24 documented as of this encounter
--- OUTSIDE RECORDS SUMMARY | 2024-07-01 13:10 | XMS_ITS | Encounter Summary ---
Author Organization [employer] Address [address] [facility] 7t [place] [address] Care Team Providers Care Senior Commissions Analyst Name Role Phone Anthony Moreno MD Primary Care Provide r Reason for Visit * Reason Onset Date Comments Clarification 03/18/2023 Encounter Details Date Type Department Care Team ([facility] Contact Info) Description 03/18/2023 Telephone [facility] MEDICINE [address] [place], [place] [phone] Anthony Moreno MD [address] [place], [place] [phone] Clarification Social History Tobacco Use Types Packs/Day [...] the past 12 months, has t he [employer], gas, oil or water [employer] threatened to shut off services in your [...] 4:50 PM EST Tc from Donna From [facility] pharmacy calling in for a Clarification on script for: chlorhexidine (Peridex) 0.12 % solution. Donna states medication instruction does not specify how many times a day pt should take solution. Please contact Donna @ [phone] documented in this encounter Plan of Treatment Upcoming Encounters Date Type Department Care Team (Late st Contact Info) Description 07/05/2024 10:00 AM EDT Office Visit [facility] ADULT DENTAL [address] [place] [address] Ev, Yary [address] [place] [address] documented as of this encounter Visit Diagnoses Not on filedocumented in this encounter Care Teams Senior Commissions Analyst Relationship Specialty Start Date End Date Anthony Moreno MD [address] [place] [address] PCP - General Internal Medicine 03/07/14 documented as of this encounter
--- OUTSIDE RECORDS SUMMARY | 2024-07-01 13:10 | XMS_ITS | Encounter Summary ---
Author Organization [employer] Address [address] [facility] 7t [place] [address] Care Team Providers Care Packing Clerk Name Role Phone Anthony Moreno MD Primary Care Provide r Encounter Details Date Type Department Care Team ([facility] st Contact Info) Description 06/25/2024 Population Health Risk Score [facility] (C3) Department [address] [phone] Provider, Population Health Generic Social History Tobacco [...] Description 07/05/2024 10:00 AM EDT Office Visit [facility] ADULT DENTAL [address] [place] [address] Ev, Yary [address] [place] [address] documented as of this encounter Visit Diagnoses Not on filedocumented in this encounter Additional Health Concerns Assessment Noted Time PHQ-9 Depression Total Score: 5 06/18/19 25 2:26 PM EST documented as of this encounter Care Teams Packing Clerk Relationship Specialty Start Date End Date Anthony Moreno MD [address] [place] [address] PCP - General Internal Medicine 03/07/14 documented as of this encounter
--- OUTSIDE RECORDS SUMMARY | 2024-07-01 13:10 | XMS_ITS | Encounter Summary ---
Author Organization [facility] Address [address] [facility] 7t [place] [address] Care Team Providers Care Production Supply Equipment Tender Name Role Phone Anthony Moreno MD Primary Care Provide r Encounter Details Date Type Department Care Team (Late Contact Info) Description 08/22/2022 Abstract [facility] MEDICINE [address] [place], [place] [phone] Anthony Moreno MD [address] [place], [place] [phone] Social History Tobacco Use Types Packs/Day Years [...] 10:00 AM EDT Office Visit [facility] ADULT DENTAL [address] [place], [place] [phone] Yary Carreno [address] [place] [address] documented as of this encounter Procedures Procedure Name Priority Date/Time Associated Diagnosis Comments COLONOSCOPY Routine 08/17/2013 documented in this encounter Results * Colonoscopy (08/17/2013) Colonoscopy Normal Normal 08/17/2013 Aidee Benedict - 08/17/2013 2:57 PM EDT Recommended 10 year follow up ( [facility] ) Historical Provider HEALTH MAINTENANCE Final Result documented in this encounter Visit Diagnoses Not on filedocumented in this encounter Care Teams Production Supply Equipment Tender Relationship Specialty Start Date End Date Anthony Moreno MD [address] [place] [address] PCP - General Internal Medicine 03/07/14 documented as of this encounter
--- OUTSIDE RECORDS SUMMARY | 2024-07-01 13:10 | XMS_ITS | Encounter Summary ---
Author Organization [employer] Address [address] 7t [place] [address] Care Team Providers Care Bar Back Name Role Phone Anthony Moreno MD Primary [...] 10:00 AM EDT Office Visit [facility] ADULT DENTAL [address] [place] [address] Ev, Yary [address] [place] [address] documented as of this encounter Visit Diagnoses Not on filedocumented in this encounter Additional Health Concerns Assessment Noted Time PHQ-9 Depression Total Score: 5 06/18/19 25 2:26 PM EST documented as of this encounter Care Teams Bar Back Relationship Specialty Start Date End Date Anthony Moreno MD [address] [place] [address] PCP - General Internal Medicine 03/07/14 documented as of this encounter
--- OUTSIDE RECORDS SUMMARY | 2024-07-01 13:10 | XMS_ITS | Encounter Summary ---
Author Organization [facility] Address [address] [facility] 7t [place] [address] Care Team Providers Care Clinical Trial Manager Name Role Phone Anthony Moreno MD Primary Care Provide r Encounter Details Date Type Department Care Team (Latest Contact Info) Description 11/20/2020 Abstract [facility] CONVERSIONS Dental, Provider, DDS Social [...] Description 07/05/2024 10:00 AM EDT Office Visit [facility] ADULT DENTAL [address] [place] [address] Ev, Yary [address] [place] [address] documented as of this encounter Visit Diagnoses Not on filedocumented in this encounter Care Teams Clinical Trial Manager Relationship Specialty Start Date End Date Anthony Moreno MD [address] [place] [address] PCP - General Internal Medicine 03/07/14 documented as of this encounter
--- OUTSIDE RECORDS SUMMARY | 2024-07-01 13:10 | XMS_ITS | Encounter Summary ---
Author Organization [employer] [facility] Address [address] [facility] 7t [place] [address] Care Team Providers Care Human Resources Benefits Specialist Name Role Phone Anthony Moreno MD Primary Care Provide r Encounter Details Date Type Department Care Team (Late st Contact Info) Description 03/19/2022 Abstract [facility] MEDICINE [address] [place] [address] ProviderRick MD Social History Tobacco Use Types [...] Description 07/05/2024 10:00 AM EDT Office Visit [facility] ADULT DENTAL [address] [place] [address] Ev, Yary [address] [place] [address] documented as of this encounter Visit Diagnoses Not on filedocumented in this encounter Care Teams Human Resources Benefits Specialist Relationship Specialty Start Date End Date Anthony Moreno MD [address] [place] [address] PCP - General Internal Medicine 03/07/14 documented as of this encounter
--- OUTSIDE RECORDS SUMMARY | 2024-07-01 13:10 | XMS_ITS | Encounter Summary ---
Author Organization [employer] [facility] Address [address] 7t [place] [address] Care Team Providers Care Valet Service Attendant Name Role Phone Anthony Moreno MD Primary Care Provide r Reason for Visit * Reason Comments Med Refill Encounter Details Date Type Department Care Team ([facility] st Contact Info) Description 06/14/2024 Refill [facility] MEDICINE [address] [place], [place] [phone] Anthony Moreno MD [address] [place], [place] [phone] Social History Tobacco Use Types Packs/Day Years [...] Description 07/05/2024 10:00 AM EDT Office Visit [facility] ADULT DENTAL [address] [place] [address] Ev, Yary [address] [place] [address] documented as of this encounter Visit Diagnoses Not on filedocumented in this encounter Additional Health Concerns Assessment Noted Time PHQ-9 Depression Total Score: 1 08/19/19 24 1:27 PM EDT documented as of this encounter Care Teams Valet Service Attendant Relationship Specialty Start Date End Date Anthony Moreno MD [address] [place] [address] PCP - General Internal Medicine 03/07/14 documented as of this encounter
== END 2024-07-01 11:52 | disposition home or self-care (01) ==
LOC: HO.RHE 11:07
PROVIDERS: PCP Internal Medicine; Visit Provider Student in an Organized Health Care Education/Training Program
DX: M43.02 Spondylolysis, cervical region (principal)
CPT/HCPCS: 99213

== ENCOUNTER → 2024-07-01 11:07 | Outpatient (BNVA) | payer MEDICAID, SELFPAY | PROVIDERS: PCP Internal Medicine; Visit Provider Student in an Organized Health Care Education/Training Program | DX: M43.02 Spondylolysis, cervical region (principal); M15.9 Polyosteoarthritis, unspecified; M79.7 Fibromyalgia | CPT/HCPCS: 99212 ==

== ENCOUNTER 2024-07-19 11:53 | Outpatient (REF) | payer MEDICAID, SELFPAY ==
--- NOTE | ~2024-07-19 | US_ITS ---
EXAMINATION: US LOWER EXTREMITY VENOUS (REFLUX EXAM), BILATERAL CLINICAL INFORMATION: Varices. COMPARISON: None. TECHNIQUE: Color flow triplex imaging and compression Doppler was performed to evaluate both the deep and the superficial systems bilaterally. To evaluate the superficial system, the examination was performed in the upright position. Color-flow Doppler ultrasound and compression ultrasound were utilized. In addition, maneuvers were utilized to demonstrate reflux. FINDINGS: 1. DEEP VENOUS ULTRASOUND OF THE RIGHT LOWER EXTREMITY: Common Femoral Vein: Compressible, normal respiratory variation and augmented flow. Femoral Vein: Compressible, normal color flow and augmentation. Popliteal Vein: Compressible, normal augmentation. Deep Reflux: There is no evidence of reflux in the deep system in either the common femoral vein, superficial femoral or the popliteal vein. There is no evidence of a Wright's cyst. 2. SUPERFICIAL ULTRASOUND WITH DOPPLER OF RIGHT LOWER EXTREMITY: GREAT SAPHENOUS VEIN: Saphenofemoral Junction: 0.7 cm; Reflux: 0 ms Proximal Thigh: 0.6 cm; Reflux: 0 ms Mid Thigh: 0.3 cm; Reflux: More than 2872 ms Distal Thigh: 0.2 cm; Reflux: More than 1844 ms At Knee: 0.2 cm; Reflux: No more than 2548 ms Proximal Calf: 0.1 cm; Reflux: 0 ms Mid Calf: 0.1 cm; Reflux: 0 ms Distal Calf: 0.1 cm; Reflux: 0 ms DUPLICATED MEDIAL GREAT SAPHENOUS VEIN: Diameter: None imaged Reflux: NA DUPLICATED LATERAL GREAT SAPHENOUS VEIN: Diameter: 0.2 cm. Reflux: NA SMALL SAPHENOUS VEIN: Saphenopopliteal Junction: 0.1 cm; Reflux: 0 ms Proximal: 0.1 cm; Reflux: 0 ms Distal: 0.1 cm; Reflux: 0 ms VEIN OF GIACOMINI: Size: 0.1 cm. Reflux: NA PERFORATORS: Location: Great saphenous vein proximal calf. Size: 0.2 cm. Reflux: NA VARICOSITIES: Location: None imaged. Size: NA Reflux: NA 3. DEEP VENOUS ULTRASOUND OF THE LEFT LOWER EXTREMITY: Common Femoral Vein: Compressible, normal respiratory variation and augmented flow. Femoral Vein: Compressible, normal color flow and augmentation. Popliteal Vein: Compressible, normal augmentation. Deep Reflux: There is no evidence of reflux in the deep system in either the common femoral vein, superficial femoral or the popliteal vein. There is no evidence of a Wright's cyst. 4. SUPERFICIAL ULTRASOUND WITH DOPPLER OF LEFT LOWER EXTREMITY: GREAT SAPHENOUS VEIN: Saphenofemoral Junction: 0.8 cm; Reflux: 0 ms Proximal Thigh: 0.4 cm; Reflux: 0 ms Mid Thigh: 0.2 cm; Reflux: 0 ms Distal Thigh: 0.2 cm; Reflux: More than 2760 ms At Knee: 0.1 cm; Reflux: 0 ms Proximal Calf: 0.1 cm; Reflux: 0 ms Mid Calf: 0.1 cm; Reflux: 0 ms Distal Calf: 0.1 cm; Reflux: 0 ms DUPLICATED MEDIAL GREAT SAPHENOUS VEIN: Diameter: None imaged Reflux: NA DUPLICATED LATERAL GREAT SAPHENOUS VEIN: Diameter: 0.2 cm. Reflux: NA SMALL SAPHENOUS VEIN: Saphenopopliteal Junction: 0.2 cm; Reflux: 0 ms Proximal: 0.1 cm; Reflux: 0 ms Distal: 0.2 cm; Reflux: 0 ms VEIN OF GIACOMINI: Size: 0.2 cm. Reflux: NA PERFORATORS: Location: Small saphenous vein mid segment. Size: 0.1 cm. Reflux: NA VARICOSITIES: Location: None Imaged Size: NA Reflux: NA US/US venous duplex LE BI IMPRESSION: Right: Venous insufficiency, great saphenous vein from the mid thigh to below the knee. Left: Venous insufficiency, great saphenous vein above the knee. Electronically signed by: Noé Hernández MD 07/19/2024 02:20 PM EDT
--- OUTSIDE RECORDS SUMMARY | 2024-07-19 14:21 | XMS_ITS | Clinical Summary ---
Author Organization [facility] Address [address] [place] [address] Phone Care Team Providers Care Switch Maker Name Role Phone Anthony Blevins MD Primary [...] AM EDT Office Visit Orthopedic Surgery - [address] [place] [address] Jesus Alberto Welch MD Arthritis [...] - Risk 3-dose series) 2023 RSV Immunization Adult Patients (1 - Risk 60-74 years 1-dose series) [...] topic Insurance MEDICAID - [place] Care Teams Switch Maker Relationship Specialty Start Date End Date Anthony Blevins MD [address] [place] [address] [place] [phone] PCP - General 01/12/24
--- OUTSIDE RECORDS SUMMARY | 2024-07-19 14:21 | XMS_ITS | Encounter Summary ---
Author Organization [employer] [facility] Address [address] [facility] 7t [place] [address] Care Team Providers Care Corporate Development Manager Name Role Phone Anthony Moreno MD Primary Care Provide r Reason for Referral * Consultation (Routine) - Pending Review Specialty Diagnoses / Procedures Referred By Contact Referred To Contact Physical Medicine and Rehabilitation Diagnoses Chronic neck pain Chronic midline low back pain without sciatica Anthony Moreno MD [address] [place] [address] Phone: tel: fax: Referral ID Status Reason Start Date Expiration Date Visits Requested Visits Authorized [id number] Pending Review Specialty Services Required 07/16/2024 07/16/2025 1 1 Encounter Details Date Type Department Care Team (Late st Contact Info) Description 07/16/2024 Orders Only [facility] MEDICINE [address] [place] [address] [phone] Anthony Moreno MD [address] [place], [place] [phone] Chronic neck pain (Primary Dx); Chronic midline low back pain without sciatica Social History Tobacco Use Types Packs/Day Years [...] Care Team (Late st Contact Info) Description 01/06/2025 10:00 AM EDT Office Visit [facility] ADULT DENTAL [address] [place] [address] Ev, Yary [address] [place] [address] Scheduled Referrals Name Type Priority Associated Diagnoses Orde r Schedule Referral to Physical Medicine Rehab Outpatient Referral Routine Chronic neck pain Chronic midline low back pain without sciatica Expected: 07/16/2024 (Approximate), Expires: 07/16/2025 documented as of this encounter Visit Diagnoses Diagnosis Chronic neck pain- Primary Cervicalgia Chronic midline low back pain without sciatica documented in this encounter Additional Health Concerns Assessment Noted Time PHQ-9 Depression Total Score: 5 06/18/19 25 2:26 PM EST documented as of this encounter Care Teams Corporate Development Manager Relationship Specialty Start Date End Date Anthony Moreno MD [address] [place] [address] PCP - General Internal Medicine 03/07/14 documented as of this encounter
--- OUTSIDE RECORDS SUMMARY | 2024-07-19 14:21 | XMS_ITS | Data Portability ---
Author Organization [place] [facility] Address [address] [place] [address] Care Team Providers Care Anesthesiology Teacher Name Role Phone SOPHIE KIM Primary Care [...] AUDITORY CANAL, W/WO CONTRAST 2023 024 [facility] [address], [place], [address], 12:39:15 Medication Orders None recorded. Patient TargetsNo [...] contr ast No observ ation record ed. [email or web address] [facility] [address] [facility] [place], [address], 09/24/2023 15:40:17 12/03/19 24 09/04/2023 imagi ng/di agnos tic resul t No observ ation record ed. [email or web address] Not Available 20:41:55 Result Notes None recorded. 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, including 'globus hystericus '; Note: Date Diagnosed: 03/04/2018 3:21 PM (F45.8) Not Available [facility] 4 03:26:41 Gastroeso phageal reflux disease without esophagit is 347806045 Active 2017 Gastro-eso phageal reflux disease without esophagiti s; Note: Date Diagnosed: 03/04/2018 3:24 PM (K21.9) Not Available [facility] 4 03:26:41 Dysphagia 37512765 Active 2017 Other dysphagia; Note: Date Diagnosed: 03/04/2018 3:21 PM (R13.19) Not Available [facility] 4 03:26:41 Sensorine ural hearing loss of bilateral ears 863521578 Active 2023 MAYO TADEO, YASMIN [address] [facility],[place] [address], [place], [address] , [place] [facility] 4 11:10:51 Vertigo 375100285 Active 2023 DIPTI BLOOD PA-C [address] [facility] [place] [facility], [place], [address] , [place] [facility] 4 11:46:48 Migrainou s vertigo 850153418 Active 2023 DIPTI BLOOD PA-C [address] [facility] [place] [address], [place], [address] , [place] [facility] 4 15:38:23 Bilateral earache 821749320 Active 2023 DIPTI BLOOD PA-C [address] [place],[facility] [place] [address], [place], [address] , [facility] 11:22:43 Temporoma ndibular joint disorder 81236921 Active 2023 DIPTI BLOOD PA-C [address] [place],[facility] [place] [address], [place], [address] , [facility] [place] [facility] 11:23:02 Problem Notes None recorded. Procedures Surgical History Date Name Laterality Status Provider Name and Address Organization Details Recorded Time Comp Audio with Tymps & Reflexes (12096 & 71510) completed YASMIN STEVENSON [address] [facility] [place],[facility] [place] [address], [place], [address], [facility] 09/04/2023 11:10:42 Imaging Results Imaging Date Name Status LastModified by Organiz ation Details LastModified Time 09/22/2023 MRI, brain + internal auditory canal, w/wo contrast completed [email or web address] [facility] [address] [place], [address], 09/24/2023 15:40:17 09/04/2023 imaging/diagn ostic result completed [...] mcg tablet 2016 active Medicati on ID: [id number] D uration Value: 30 Brand Name: levothyr [...] Note 1291 DIPTI BLOOD PA-C [facility] [address] [address] 09/04/2023 10:26:40 09/04/2023 12:03:25 Sensorineural hearing loss of bilateral ears 219563814 H90.3 Audiologic al evaluation results:Ri ght ear:{{Norm [...] 1kHz, AD, and contra 1kHz, . Vertigo 976464981 R42 Associated pre-syncop e and arm weakness Migrainous vertigo 28127 4007 H81.8X9 78567 COLE SANTORO MD [facility] [address] [address] 11/26/2023 10:49:19 11/26/2023 11:27:05 Bilateral earache 046819334 H92.03 Temporoman dibular joint disorder 29292789 M26.609 Migrainous vertigo 15475 4007 H81.8X9 Health Concerns Section Related Observation LastModified by Organization Detai ls LastModified Time None Recorded Concern Status LastModified by Organization Details LastModified Time None Recorded Advance Directives Directive None Recorded Payers Encounter Date Sequence Insurance Name Policy Number Policy Abraham Covered Member ID Abraham Member ID Guarantor Name 09/04/2023 1 [place] [facility] Steffanie Benjamin James [id number] Steffanie Benjamin 11/26/2023 1 [place] [facility] Steffanie Benjamin James [id number] Steffanie Benjamin Notes Date Note Type Note [...] sugar in the diet. DIPTI BLOOD PA-C [address] [place] [address], [address], [facility] 09/04/2023 15:39:50 11/26/2023 text/html 58 year [...] jaw pops and cracks. COLE PICKENS MD [address] [place] [address], [place], [address], [place] - [facility] 11/26/2023 13:04:47 OBGyn Episode No OBEpisode recorded.
--- OUTSIDE RECORDS SUMMARY | 2024-07-19 14:21 | XMS_ITS | Encounter Summary ---
Author Organization [employer] [facility] Address [address] [facility] 7t [place] [address] Care Team Providers Care Supervisor Steno Pool Name Role Phone Anthony Moreno MD Primary Care Provide r Encounter Details Date Type Department Care Team (Latest Contact Info) Description 06/24/2018 Abstract [facility] CONVERSIONS Dental, Provider, DDS Social History Tobacco [...] Description 01/06/2025 10:00 AM EDT Office Visit [facility] ADULT DENTAL [address] [place] [address] Ev, Yary [address] [place] [address] documented as of this encounter Visit Diagnoses Not on filedocumented in this encounter Care Teams Supervisor Steno Pool Relationship Specialty Start Date End Date Anthony Moreno MD [address] [place] [address] PCP - General Internal Medicine 03/07/14 documented as of this encounter
--- OUTSIDE RECORDS SUMMARY | 2024-07-19 14:21 | XMS_ITS | Encounter Summary ---
Author Organization [employer] Address [address] [facility] 7t [place] [address] Care Team Providers Care Zipper Sewing Machine Operator Name Role Phone Anthony Moreno MD Primary Care Provide r Reason for Visit * Reason Onset Date Comments Clarification 03/18/2023 Encounter Details Date Type Department Care Team ([facility] Contact Info) Description 03/18/2023 Telephone [facility] MEDICINE [address] [place], [place] [phone] Anthony Moreno MD [address] [place], [place] [phone] Clarification Social History Tobacco Use Types Packs/Day [...] the past 12 months, has t he [employer], gas, oil or water [employer] threatened to shut off services in your [...] 4:50 PM EST Tc from Donna From [facility] pharmacy calling in for a Clarification on script for: chlorhexidine (Peridex) 0.12 % solution. Donna states medication instruction does not specify how many times a day pt should take solution. Please contact Donna @ [phone] documented in this encounter Plan of Treatment Upcoming Encounters Date Type Department Care Team (Late st Contact Info) Description 01/06/2025 10:00 AM EDT Office Visit [facility] ADULT DENTAL [address] [place] [address] Ev, Yary [address] [place] [address] documented as of this encounter Visit Diagnoses Not on filedocumented in this encounter Care Teams Zipper Sewing Machine Operator Relationship Specialty Start Date End Date Anthony Moreno MD [address] [place] [address] PCP - General Internal Medicine 03/07/14 documented as of this encounter
--- OUTSIDE RECORDS SUMMARY | 2024-07-19 14:21 | XMS_ITS | Clinical Summary ---
Author Organization [employer] Address [address] [facility] 7t [place] [address] Care Team Providers Care Asphalt Tamping Machine Operator Name Role Phone Anthony Moreno [...] HOURS NEEDED FOR DIARRHEA 01/04/20 23 Active levothyroxine (Synthroid, Levoxyl) 88 MCG [...] DIZZINESS 30 tablet 1 02/17/20 24 Active Multiple Vitamin (multivitamin) tabletIndications :Peripheral polyneuropathy Take 1 tablet by mouth Once per day. 30 tablet 6 06/18/19 25 Active pregabalin (Lyrica) 100 MG capsuleIndication s:Peripheral polyneuropathy TAKE 1 CAPSULE BY MOUTH TWICE DAILY 60 capsule 1 06/18/19 25 Active loratadine (Claritin) 10 MG tabletIndications :Seasonal allergies TAKE 1 TABLET BY MOUTH EVERY MORNING 90 tablet 1 07/02/19 25 Active naproxen (Naprosyn) 500 MG tablet TAKE 1 TABLET BY MOUTH WITH BREAKFAST AND EVENING MEALS NEEDED FOR PAIN 60 tablet 07/16/19 25 Active loratadine (Claritin) 10 MG tabletIndications :Seasonal allergies TAKE 1 TABLET BY MOUTH EVERY MORNING 90 tablet 1 03/13/20 23 025 Discontinued naproxen (Naprosyn) 500 MG tablet TAKE 1 TABLET BY MOUTH WITH BREAKFAST AND EVENING MEALS NEEDED PAIN 60 tablet 06/16/19 25 025 Discontinued Active Problems Problem Noted Date Diagnosed Date Arthralgia of bilateral temporomandibular joint 07/05/2024 Postmenopausal bleeding 06/17/2024 Assessment & Plan (06/17/2024 2:48 PM EST): Under the care of Dr gary Lovett LICENSED DIRECT ENTRY MIDWIFE , last seen 05/2024 She is now [...] synovitis on exam. She refused injection from Human Resource Statistician. She had surgery on the right elbow for nerve pain and wants to he the left hand done. Human Resource Statistician recommended to continue with Tylenol and over [...] of films were also faxed to patient's primary products inspectors Assessment & Plan (01/06/2024 10:16 AM EDT): Evaluated by Rheumatology last seen 06/2023 recommended 1 year follow up Prior serology with negative SONYA, RF, and anti-CCP. Hand pain to the right is resolved, X-rays from 2022 showed osteoarthritis. No synovitis on exam. She refused injection from Human Resource Statistician. She had surgery on the right elbow for nerve pain and wants to he the left hand done. Human Resource Statistician recommended to continue with Tylenol and over [...] obtained a brain MRI and IACs at [facility] ) that was read as normal for [...] neg, NILM, 04/03/[address] Lovett [facility] Colonoscopy: 08/17/2013 Dr. Smith. Repeat 03/09/2024 Dr Kaba [place] [facility] Normal aside from hemorrhoids, 10 yr follow up recommended Vaccines: Td: 06/07/2011 Declines booster Dexa scan: 05/25/2010. Assessment & Plan (11/27/2023 2:55 PM EDT): Mammogram: 03/14/2023 Normal Pap Smear: HPV neg, NILM, 04/03/[address] Lovett [facility] Colonoscopy: 08/17/2013 Dr. Smith. Scheduled for Feb 2024 for a repeat. Vaccines: Td: 06/07/2011 Declines booster Dexa scan: 05/25/2010. Assessment & Plan (01/16/2023 3:01 PM EDT): Mammogram: 03/11/2022 BIRADS 3, due Feb 2023 Pap Smear: HPV neg, NILM, 04/03/[address] Lovett [facility] Colonoscopy: 08/17/2013 Dr. Smith Vaccines: Td: 06/07/2011 Dexa scan: 05/25/2010. Assessment & Plan (08/06/2022 2:21 PM EDT): Mammogram: 03/11/2022 BIRADS 3, due Feb 2023 Pap Smear: HPV neg, NILM, 04/03/[address] Lovett [facility] Colonoscopy: 08/17/2013 Dr. Smith Vaccines: Td: 06/07/2011 [...] beneficial Previous visit she was referred to [facility] Lieberman. Pt tells me she was seen and received a steroid injection Assessment & Plan (04/16/2022 1:24 PM EST): Hx of rotator cuff injury, c/o worsening pain, would like to try a steroid injection that in the past was beneficial Will refer to Lenny marie 04/16/2022 Assessment & Plan (03/02/2024 2:48 PM EST): S/p removal by Dr. Mack Perdue Assessment & Plan (01/06/2024 10:17 AM EDT): Previously referred to podiatry but patient unable to see them due to the fact thay they had no credit administrator. Pt is requesting to have the toenail [...] a Hx of severe anxiety. follows at [facility]. On Klonopin 0.5 mg po qd prn for anxiety. Chronic low back pain 01/14/2012 Assessment & Plan (08/06/2022 2:24 PM EDT): follows at [facility], receives epidural injections intermittently. Fibromyalgia 01/14/2012 Assessment [...] 2.02 Used to [place] with [place] [facility] [place] She is on Synthroid 88 mcg po daily. Plan: Continue with current regimen Pt tells me the Cosmetic Assembler already told her there was no need to f/u with them to only follow with us Assessment & Plan (08/19/2023 1:26 PM EDT): Pt here for a f/u Most recent TSH 06/18/2023 elevated at 9.46 Used to follow with [place]ocr[place] [facility] [place] She is on Synthroid 88 mcg po daily. Plan: Will repeat and if still elevated will increase it to 100 mcg po daily Pt tells me the Cosmetic Assembler already told her there was no need to f/u with them to only follow with us Plan: continue current regimen. Will repeat TSH Assessment & Plan (06/17/2023 2:07 PM EST): Pt here for a f/u Most recent TSH 01/27/2023 elevated at 6.02 Used to follow with [place]ocrin[place] [facility] [place]. She was on Synthroid 75 mcg po daily. I increased it to 88 mcg po daily Pt tells me the Cosmetic Assembler already told her there was no need to f/u with them to only follow with us Plan: continue current regimen. Will repeat TSH Assessment & Plan (01/16/2023 3:46 PM EDT): Pt here for a f/u Most recent TSH 03/27/2022 wnl Used to follow with [place]ocrinology [place] [facility] [place]. She is currently on Synthroid 75 mcg po daily. Pt tells me the Cosmetic Assembler already told her there was no need to f/u with them to only follow with us Plan: continue current regimen. Will repeat TSH Assessment & Plan (08/06/2022 2:27 PM EDT): Pt here for a f/u Most recent TSH 03/27/2022 wnl Used to follow with [place] [facility] [place]. She is currently on Synthroid 75 mcg po daily. Pt tells me the Cosmetic Assembler already told her there was no need [...] Encounters Date Type Department Care Team Description 07/16/2024 Orders Only [facility] [address] [facility] [address] Anthony Moreno MD Chronic neck pain (Primary Dx); Chronic midline low back pain without sciatica 07/16/2024 Telephone [facility] [address] [facility] [place] [address] Anthony Moreno MD Referral 07/14/2024 Refill [facility] [address] [facility] [place] [address] Anthony Moreno MD 07/08/2024 Telephone [facility] [address] [facility] [place] [address] Anthony Moreno MD Call Back Request 07/05/2024 10:00 AM EDT Office Visit [facility] [address] [facility] [place] [address] Yary Carreno Dental calculus (Primary Dx); Arthralgia of bilateral temporomandibular joint 07/01/2024 Refill [facility] [address] [facility] [place] [address] Antonia Reeder ANP Seasonal allergies 06/29/2024 Orders Only [facility] [place] [address] Anthony Moreno MD Neck pain (Primary Dx) 06/28/2024 Telephone [facility] [place] [address] Anthony Moreno MD ER Follow-up; Referral 06/25/2024 Orders Only [facility] External Provider, [facility] 06/25/2024 Population Health Risk Score [facility] ([facility]) Department [address] [place] [phone] Provider, Population Health Generic 06/17/2024 2:30 PM EST Office Visit [facility] [place] [address] Anthony Moreno MD Routine physical examination (Primary Dx); Postmenopausal bleeding; Bronchiectasis without complication (CMS/HCC); Liver lesion; Overweight (BMI 25.0-29.9); Peripheral polyneuropathy; Vascular insufficiency; Preventative health care 06/17/2024 Refill [facility] [place] [address] Anthony Moreno MD Peripheral polyneuropathy 06/17/2024 Travel 06/14/2024 Refill [facility] [place] [address] Anthony Moreno MD 06/08/2024 Patient Outreach [facility] [place] [address] Anthony Moreno MD Pre-visit Planning (SDOH Screening negative and Tobacco screening negative) 06/03/2024 Telephone [facility] [place] [address] Anthony Moreno MD Chart Prep 05/14/2024 Orders Only GENERIC EXTERNAL DATA DEPARTMENT Provider, Generic External Data 05/11/2024 Refill [facility] [place] [address] Anthony Moreno MD 05/10/2024 Telephone [facility] [address] [place] [address] Anthony Moreno MD from Last 3 Months [...] Sign Reading Time Taken Comments Blood Pressure 132/80 07/05/2024 9:56 AM EDT Pulse 65 06/17/2024 2:23 PM EST Temperature [...] Upcoming Encounters Date Type Department Care Team ([facility] st Contact Info) Description 01/06/2025 10:00 AM EDT Office Visit [facility]ULT [facility] [address] [place] [address] Ev, Yary [address] [place] [address] Health Maintenance Due Date Last Done Comments [...] 1-dose series) 2023 COVID-19 Vaccine (3 - season) 2023 10/28/2020, 10/06/2020 Influenza Vaccine (#1) 2023 Dental Oral Exam 01/06/2025 07/05/2024, 08/2022, 05/03/2022 Dental Prophylaxis 01/06/2025 07/05/2024, 0 01/05/2024, 01/31/2023, Additional history exists Alcohol/Substance Use Screening 03/02/2025 03/02/2024 SDOH Screening 06/08/2025 06/08/2024 Depression Screening 06/17/2025 06/17/2024, 06/18/19 Tobacco Screening 07/05/2025 07/05/2024 Dental X-Ray: Bitewings 07/06/2025 07/06/19, 01/31/2023, 05/03/2022 Mammogram 04/09/2026 04/09/2024, 03/15, 03/16/2024, Additional history exists Dental X-Ray: Full Mouth 07/07/2027 07/05/2024, 08/0 12/2020 Cervical Cancer Screening 03/17/2029 HPV/Cotest 03/17/2029 04/03/2021, 04/03/2021 Pap Smear 03/17/2029 03/17/2024 Colonoscopy 03/09/2034 03/09/2024, 08/17/2013 Colorectal Cancer [...] Procedure Name Priority Date/Time Associated Diagnosis Comments PERIODIC ORAL EVALUATION - ESTABLISHED PATIENT Routine 07/05/2024 10:00 AM EDT CASE PRESENTATION, DETAILED AND EXTENSIVE TREATMENT PLANNING Routine 07/05/2024 10:00 AM EDT Dental calculus PROPHYLAXIS - ADULT Routine 07/05/2024 1 0:00 AM EDT Dental calculus ORAL HYGIENE INSTRUCTIONS Routine 07/05/2024 10:00 AM EDT Dental calculus INTRAORAL - COMPLETE SERIES OF RADIOGRAPHIC IMAGES Routine 07/05/2024 10:00 AM EDT Dental calculus CT CERVICAL SPINE WO CONTRAST Routine 06/25/2024 12:30 PM EDT HEMATOXYLIN AND EOSIN STAIN Routine 05/14/2024 9:28 AM EST BI US BREAST LIMITED BILATERAL Routine 04/09/2024 10:45 AM EST PAP SMEAR Routine 03/17/2024 9:55 AM EST HM COLONOSCOPY Routine 03/09/2024 9:14 AM EST HEPATITIS C AB W/REFL TO HCV RNA, QN, PCR Routine 01/27/2023 1:47 PM EDT Routine physical examination Preventative health care ZZZ HISTORICAL HPV E6/E7 RFLX MIKAL 16 18/45 Routine 04/03/2021 3:12 PM EST from Last 3 Months or Most Recently Relevant to Health Maintenance Results * CT Cervical Spine w/o Contrast (06/25/2024 12:30 PM EDT) Anatomical Region Laterality Modality Spine, C-spine Computed Tomogra phy 06/25/2024 12:3 0 PM EDT Narrative 06/25/2024 1:01 PM EDT ? [facility] ?[address] ?[place] [address] ? CT Scan Report ? Signed ? Patient: Sourav James Ivette ?MR#: MM ?? [id number] ? : 1965 ?Acct:[id number] ? Age/Sex: 59 / F ?ADM Date: 03/14/25 ? Loc: HO.ED ? Attending Dr: ? Ordering Physician: Saloni Rodriguez NP ?? Date of Service: 06/25/24 ?? Procedure(s): CT cervical spine wo IV con ?? Accession Number(s): [id number] ? cc: Anthony Blevins MD; Saloni Rodriguez NP ? Report Number: ?? [id number]: Total DLP = ??361.00 mGy-cm ?? EXAMINATION: [...] DD/ 1230 ? TD/TT: 06/25/24 1249 ? It Risk And Assurance Manager: ? Procedure Note Olesya, Image - 06/25/[address] [address] [address] Scan Report Signed Patient: Steffanie EsquivelMR#: [id number] : 1965Acct:[id number] Age/Sex: 59 / FADM Date: 06/25/24 Loc: HO.ED Attending Dr: Ordering Physician: Saloni Rodriguez NP Date of Service: 06/25/24 Procedure(s): CT cervical spine wo IV con Accession Number(s): [id number] cc: Anthony Blevins MD; Saloni Rodriguez NP Report Number: [id number]: Total DLP = 361.00 mGy-cm EXAMINATION: CT [...] 06/25/24 1258 DD/ 1230 TD/TT: 06/25/24 1249 It Risk And Assurance Manager: [facility] External Provider IMG CT PROCEDURES Final Result * Hematoxylin and Eosin Stain (05/14/2024 9:28 AM EST) 05/14/2024 9:28 AM EST 05/14/2024 11:10 AM EST Narrative [facility] - 05/17/2024 5:33 PM EST ----- ------- Name: Steffanie Esquivel ? Age/Sex: 59/F ? : 1965 Unit#: [id number] ?? Attend Dr: Gary Lovett MD ?Re05/14/24 ?Status: DEP SDC ? Location: HO.SSS ?Disch: ? ----- ------- SPEC : [id number] ?RECD: 05/14/24-1109 ? STATUS: ??SOUT ? REQ NUM: [id number] ? RAIMUNDO: 05/14/24 ? SUBM DR: Gary [...] ? Age/Sex: 59/F ? : 1965 Unit#: [id number] ?? Attend Dr: Gary Lovett MD ?Re05/14/24 ?Status: DEP RIC ? Location: HO.SSS ?Disch: ? ----- ------- SPEC : [id number] ?RECD: 05/14/24 ? STATUS: ??SOUT ? REQ NUM: [id number] ? RAIMUNDO: 05/14/24 ? SUBM DR: Gary Lovett MD ? ENTERED: ??05/14/24 ?SP TYPE: Surgical ? OTHR DR: Anthony Blevins MD ?? ORDERED: ??HE Stain/6, Gross Micro L4/3 ? Gross Description ?(Continued) cassette C. smc Copies To: ?? Anthony Blevins MD ?? [facility] ?? [address] [facility] ?? [place] [address] ?? [phone] ?? Gary Lovett MD ?? [facility] ?? [address] [place] [address] [address] ?? [place] [address] ?? [phone] ----- ------- Signed (signature on file) Edwige Andrew MD 02/07/06 1732 ? ----- ------- ? END OF REPORT ? us Generic External Data Provider LAB BLOOD ORDERAB LES Final Result [facility] [address] [place] [address] [phone] * BI US Breast Limited Bilateral (04/09/2024 10:45 AM EST) Anatomical Region Laterality Modality Breast Bilateral Ultrasound 04/09/2024 10:4 5 AM EST Narrative 04/09/2024 11:01 AM EST ? [facility] [place] ? [address] [facility] ?[place] [address] ? Ultrasound Report ? Signed ? Patient: Steffanie Esquivel ?MR#: MM ?? [id number] ? : 1965 ?Acct:[id number] ? Age/Sex: 59 / F ?ADM Date: 04/09/24 ? Loc: HO.MAMMO ? Attending Dr: Anthony Blevins MD ? Ordering Physician: Anthony Blevins MD ?? Date of Service: 04/09/24 ?? Procedure(s): US breast BI limited mamm only ?? Accession Number(s): [id number] ? cc: Anthony Blevins MD ? EXAMINATION: [...] 04/09/24 1058 ? DD/ 1045 ? TD/TT: 04/09/241056 ? It Risk And Assurance Manager: ? Procedure Note Lucía Dacosta - 04/09/2024 [facility] [address] [place] [address] Dr. [place], [place] [address] Ultrasound Report Signed Patient: Sourav James IvgaryMR#: [id number] : 1965Acct:[id number] Age/Sex: 59 / FADM Date: 04/09/24 Loc: HO.MAMMO Attending Dr: Anthony Blevins MD Ordering Physician: Anthony Blevins MD Date of Service: 04/09/24 Procedure(s): US breast BI limited mamm only Accession Number(s): [id number] cc: Anthony Blevins MD EXAMINATION: MM DIAGNOSTIC [...] 04/09/24 1058 DD/ 1045 TD/TT: 04/09/24 1057 It Risk And Assurance Manager: Anthony Muller MD IMG US PROCEDURES Fin al Result * Pap Smear (03/17/2024 9:55 AM EST) 03/17/2024 9:55 AM EST 03/18/2024 8:20 AM EST Narrative [facility] - 03/24/2024 10:20 AM EST ----- ------- Name: Steffanie Esquivel ? Age/Sex: 59/F ? : 1965 Unit#: [id number] ?? Attend Dr: Gary Lovett MD ?Re03/17/24 ?Status: DEP REF ? Location: HO.LNP ?Disch: ? ----- ------- SPEC : [id number] ?RECD: 03/18/24-819 ? STATUS: ??SOUT ? REQ NUM: [id number] ? RAIMUNDO: 03/17/24-954 ? SUBM DR: Gary Lovett MD ? ENTERED: ??03/18/24-836 ?SP TYPE: Pap Smr ?OTHR DR: Anthony [...] Copies To: ?? Anthony Blevins MD ?? [facility] ?? [address] [facility] ?? [place] [address] ?? [phone] ?? Gary Lovett MD ?? [facility] ?? [address] [facility] [address] ?? [place] [address] ?? [phone] ----- ------- Signed (signature on file) RYAN Candelario (ASCP) 03/24/24 1020 ? ----- ------- ? END OF REPORT ? us Generic External Data Provider LAB CYTOLOGY ORDE RABLES Final Result Performing Organization Address [facility]/ZIP Co de Phone Number [facility] [address] [place] [address] [phone] * Hm Colonoscopy (03/09/2024 9:14 AM EST) Pathologist [facility] Colonoscopy Normal Normal 03/09/2024 9:14 AM EST Historical Provider HEALTH MAINTENANCE Final Result * Hepatitis C Antibody with Reflex to HCV, RNA, Quantitative, Real-Time PCR (01/27/2023 1:47 PM EDT) Pathologist [facility] Hepatitis C Antibody Nonreactive Nonreactive [facility] Comment:Antibodies to HCV no t detected; does not exclude early acuteHCV infection. Blood Venous blood specimen / Unknown 01/27/2023 1:47 PM EDT 01/27/2023 1:47 PM EDT Anthony Muller MD LAB BLOOD ORDERABLES Final Result Performing Organization Address [facility]/ZIP Co de Phone Number [facility] [address] [place] [address] [phone] * HPV E6/E7 RFLX MIKAL 16 18/45 (04/03/2021 3:12 PM EST) Pathologist [facility] HPV mRNA E6/E7 rflx Not Detected Not Detected [facility] Comment: Methodology: Boat Person-Mediated Amplification This assay detects E6/E7 viral messenger RNA (mRNA) from 14 high-risk HPV types (16,18,31,33,35,39,45,51,52,56,58,59,66,68). The analytical performance characteristics of this assay have been determined by [employer] The modifications have not been cleared or approved by the FDA. This assay has been validated pursuant to the CLIA regulations and is used for clinical purposes. For additional information, please refer to http://education.[employer]/faq/JCE313j5 (This link if provided for information/ educational purposes only.) THIS TEST WAS PERFORMED AT: [email or web address] [address] [place] [address] [address] [place], [place] ??[phone] FABRICIO SINHA MD 04/03/2021 3:12 PM EST Gary Lovett MD HISTORICAL/NON ORDERABLE LABS Fi nal Result [facility] [address] from Last 3 Months or Most Recently Relevant to Health Maintenance Insurance D[facility] MEDICAID STAND ADULT [facility] C3 [place]ID STAND ADULT Care Teams Asphalt Tamping Machine Operator Relationship Specialty Start Date End Date Anthony Moreno MD [address] [place] [phone] PCP - General Internal Medicine 03/07/14
--- OUTSIDE RECORDS SUMMARY | 2024-07-19 14:21 | XMS_ITS | Encounter Summary ---
Author Organization [employer] Address [address] [facility] [address] 7t [place] [address] Care Team Providers Care Risk Management Specialist Name Role Phone Anthony Moreno MD Primary Care Provide r Encounter Details Date Type Department Care Team ([facility] st Contact Info) Description 05/10/2024 Telephone [facility] [address] [place], [place] [phone] Anthony Moreno MD [address] [place], [place] [phone] Social History Tobacco Use Types Packs/Day Years [...] Description 01/06/2025 10:00 AM EDT Office Visit [facility] ADULT DENT[facility] [address] [place] [address] Ev, Yary [address] [place] [address] documented as of this encounter Visit Diagnoses Not on filedocumented in this encounter Additional Health Concerns Assessment Noted Time PHQ-9 Depression Total Score: 1 08/19/19 24 1:27 PM EDT documented as of this encounter Care Teams Risk Management Specialist Relationship Specialty Start Date End Date Anthony Moreno MD [address] [place] [address] PCP - General Internal Medicine 03/07/14 documented as of this encounter
--- OUTSIDE RECORDS SUMMARY | 2024-07-19 14:21 | XMS_ITS | Encounter Summary ---
Author Organization [employer] [facility] Address [address] [facility] 7t [place] [address] Care Team Providers Care Fire Hydrant Operator Name Role Phone Anthony Moreno MD Primary Care Provide r Encounter Details Date Type Department Care Team (Late Contact Info) Description 08/22/2022 Abstract [facility] [address] [place], [place] [phone] Anthony Moreno MD [address] [place], [place] [phone] Social History Tobacco Use Types Packs/Day Years [...] Description 01/06/2025 10:00 AM EDT Office Visit [facility] ADULT DENTAL [address] [place], [place] [phone] Yary Carreno [address] [place] [address] documented as of this encounter Procedures Procedure Name Priority Date/Time Associated Diagnosis Comments COLONOSCOPY Routine 08/17/2013 documented in this encounter Results * Colonoscopy (08/17/2013) Colonoscopy Normal Normal 08/17/2013 Aidee Benedict - 08/17/2013 2:57 PM EDT Recommended 10 year follow up ( [facility] ) Historical Provider HEALTH MAINTENANCE Final Result documented in this encounter Visit Diagnoses Not on filedocumented in this encounter Care Teams Fire Hydrant Operator Relationship Specialty Start Date End Date Anthony Moreno MD [address] [place] [phone] PCP - General Internal Medicine 03/07/14 documented as of this encounter
--- OUTSIDE RECORDS SUMMARY | 2024-07-19 14:21 | XMS_ITS | Encounter Summary ---
Author Organization [employer] [facility] Address [address] [facility] 7t [place] [address] Care Team Providers Care Brim Rounder Name Role Phone Anthony Moreno MD Primary Care Provide r Encounter Details Date Type Department Care Team (Late st Contact Info) Description 03/19/2022 Abstract [facility] [address] [place] [address] ProviderRick MD Social History Tobacco Use Types [...] Description 01/06/2025 10:00 AM EDT Office Visit [facility] ADULT [facility] [address] [place] [address] Ev, Yary [address] [place] [address] documented as of this encounter Visit Diagnoses Not on filedocumented in this encounter Care Teams Brim Rounder Relationship Specialty Start Date End Date Anthony Moreno MD [address] [place] [address] PCP - General Internal Medicine 03/07/14 documented as of this encounter
--- OUTSIDE RECORDS SUMMARY | 2024-07-19 14:21 | XMS_ITS | Encounter Summary ---
Author Organization [employer] [facility] Address [address] [facility] 7t [place] [address] Care Team Providers Care Front Office Developer Name Role Phone Anthony Moreno MD Primary Care Provide r Reason for Visit * Reason Onset Date Comments Referral 07/16/2024 Encounter Details Date Type Department Care Team ([facility] Contact Info) Description 07/16/2024 Telephone [facility] [address] [place], [place] [phone] Anthony Moreno MD [address] [place], [place] [phone] Referral Social History Tobacco Use Types Packs/Day [...] Telephone Encounter - Dasha Mace [place] - 07/16/2024 3:17 PM EDT Contacted pt in regards to PT referral, pt stated that that isn't what she wanted. She wanted a referral to [facility] in regards to her neck and back since she used to be established there and used to receive cortisol injections which helped her significantly. Will forward this to PCP. LB documented in this encounter Plan of Treatment Upcoming Encounters Date Type Department Care Team (Late st Contact Info) Description 01/06/2025 10:00 AM EDT Office Visit [facility]ULT [facility] [address] [place] [address] Ev, Yary [address] [place] [address] documented as of this encounter Visit Diagnoses Not on filedocumented in this encounter Additional Health Concerns Assessment Noted Time PHQ-9 Depression Total Score: 5 06/18/19 25 2:26 PM EST documented as of this encounter Care Teams Front Office Developer Relationship Specialty Start Date End Date Anthony Moreno MD [address] [place] [address] PCP - General Internal Medicine 11/24/14 documented as of this encounter
--- OUTSIDE RECORDS SUMMARY | 2024-07-19 14:21 | XMS_ITS | Encounter Summary ---
Author Organization [employer] [facility] Address [address] [facility] 7t [place] [address] Care Team Providers Care Unix Analyst Name Role Phone Anthony Moreno MD Primary Care Provide r Encounter Details Date Type Department Care Team (Late Contact Info) Description 03/29/2022 Abstract [facility] [address] [place], [place] [phone] Anthony Moreno MD [address] [place], [place] [phone] Social History Tobacco Use Types Packs/Day Years [...] Description 01/06/2025 10:00 AM EDT Office Visit [facility] ADULT DENT[facility] [address] [place], [place] [phone] EvJefferyYary [address] [place], [place] [phone] documented as of this encounter Procedures Procedure Name Priority Date/Time Associated Diagnosis Comments BI MAMMOGRAM DIAGNOSTIC BILATERAL Routine 03/11/2022 3:54 PM EST documented in this encounter Results * (ABNORMAL) BI Mammogram Diagnostic Bilateral (03/11/2022 3:54 PM EST) Anatomical Region Laterality Modality Breast Bilateral Mammography Narrative 03/11/2022 3:54 PM EST Birads 3 - recommended bilateral diagnostic at time ??of annual exam in 12 months ([facility] [place] us Historical Provider MD HARP BI PROCEDURES Final R esult documented in this encounter Visit Diagnoses Not on filedocumented in this encounter Care Teams Unix Analyst Relationship Specialty Start Date End Date Anthony Moreno MD [address] [place] [id number] PCP - General Internal Medicine 03/07/14 documented as of this encounter
--- OUTSIDE RECORDS SUMMARY | 2024-07-19 14:21 | XMS_ITS | Encounter Summary ---
Author Organization [employer] Address [address] 7[address] [place] [address] Care Team Providers Care Adult Educator Name Role Phone Anthony Moreno MD Primary Care Provide r Reason for Visit * Reason Comments Med Refill Encounter Details Date Type Department Care Team ([facility] st Contact Info) Description 05/14/2023 Refill [facility] [address] [place], [place] [phone] Anthony Moreno MD [address] [place], [place] [phone] Social History Tobacco Use Types Packs/Day Years [...] Description 01/06/2025 10:00 AM EDT Office Visit [facility] ADULT DENTAL [address] [place] [address] Ev, Yary [address] [place] [address] documented as of this encounter Visit Diagnoses Not on filedocumented in this encounter Care Teams Adult Educator Relationship Specialty Start Date End Date Anthony Moreno MD [address] [place] [address] PCP - General Internal Medicine 03/07/14 documented as of this encounter
--- OUTSIDE RECORDS SUMMARY | 2024-07-19 14:21 | XMS_ITS | Encounter Summary ---
Author Organization [employer] [facility] Address [address] [facility] 7[address] [place] [address] Care Team Providers Care Weapons Mechanic Name Role Phone Anthony Moreno MD Primary Care Provide r Encounter Details Date Type Department Care Team (Latest Contact Info) Description 11/20/2020 Abstract [facility] CONVERSIONS Dental, Provider, DDS Social [...] [facility] ADULT DENTAL [address] [place] [address] Ev, Yary [address] [place] [address] documented as of this encounter Visit Diagnoses Not on filedocumented in this encounter Care Teams Weapons Mechanic Relationship Specialty Start Date End Date Anthony Moreno MD [address] [place] [address] PCP - General Internal Medicine 03/07/14 documented as of this encounter
--- OUTSIDE RECORDS SUMMARY | 2024-07-19 14:21 | XMS_ITS | Encounter Summary ---
Author Organization [employer] Address [address] [facility] 7t [place] [address] Care Team Providers Care Home Health Nurse Name Role Phone Anthony Moreno MD Primary Care Provide r Reason for Visit * Reason Onset Date Comments Call Back Request 07/08/2024 Encounter Details Date Type Department Care Team ([facility] Contact Info) Description 07/08/2024 Telephone [facility] [address] [place], [place] [phone] Anthony Moreno MD [address] [place] [address] Call Back Request Social History Tobacco Use Types Packs/Day Years [...] encounter Miscellaneous Notes * Telephone Encounter - Theron Soliz - 07/08/2024 3:16 PM EDT Tc from pt requesting a callback as she will like to speak about referral that pt don't need and issomething else she will like to get done. Please return call to [phone] documented in this encounter Plan of Treatment Upcoming Encounters Date Type Department Care Team (Late st Contact Info) Description 01/06/2025 10:00 AM EDT Office Visit [facility] ADULT D[facility]AL [address] [place] [address] Ev, Yary [address] [place] [address] documented as of this encounter Visit Diagnoses Not on filedocumented in this encounter Additional Health Concerns Assessment Noted Time PHQ-9 Depression Total Score: 5 06/18/19 25 2:26 PM EST documented as of this encounter Care Teams Home Health Nurse Relationship Specialty Start Date End Date Anthony Moreno MD [address] [place] [address] PCP - General Internal Medicine 03/07/14 documented as of this encounter
--- OUTSIDE RECORDS SUMMARY | 2024-07-19 14:21 | XMS_ITS | Encounter Summary ---
Author Organization [employer] Address [address] [facility] [address] [facility] [facility] [address] [place] [address] Care Team Providers Care Staff Radiographer Name Role Phone Anthony Moreno MD Primary Care Provide r Reason for Visit * Reason Comments Med Refill Encounter Details Date Type Department Care Team ([facility] st Contact Info) Description 07/14/2024 Refill [facility] [address] [place], [place] [phone] Anthony Moreno MD [address] [place], [place] [phone] Social History Tobacco Use Types Packs/Day Years [...] Description 01/06/2025 10:00 AM EDT Office Visit [facility] ADULT DENTAL [address] [place] [address] Ev, Yary [address] [place] [address] documented as of this encounter Visit Diagnoses Not on filedocumented in this encounter Additional Health Concerns Assessment Noted Time PHQ-9 Depression Total Score: 5 06/18/19 25 2:26 PM EST documented as of this encounter Care Teams Staff Radiographer Relationship Specialty Start Date End Date Anthony Moreno MD [address] [place] [address] PCP - General Internal Medicine 03/07/14 documented as of this encounter
== END 2024-07-19 11:54 | disposition home or self-care (01) ==
LOC: HO.US 11:53
PROVIDERS: PCP Internal Medicine; Visit Provider Physician Assistant Surgical
DX: I83.11 Varicose veins of right lower extremity with inflammation (principal); I83.12 Varicose veins of left lower extremity with inflammation
CPT/HCPCS: 93970

== ENCOUNTER → 2024-07-19 12:03 | Outpatient (BNV) | payer MEDICAID, SELFPAY | PROVIDERS: PCP Internal Medicine; Visit Provider Radiology Diagnostic Radiology | DX: I87.2 Venous insufficiency (chronic) (peripheral) (principal) | CPT/HCPCS: 93970 ==

== ENCOUNTER 2024-07-22 14:49 | Outpatient (AMB) | payer MEDICAID, SELFPAY ==
--- NOTE | 2024-07-22 15:40 | A.OFFVIS_ITS ---
Intake Visit Reasons: follow up s/p US 07/19/24 Intake Note: Phoebe presents for follow up US performed on 07/19/24. Accompanied by: Self / Same As Patient Allergies cholestyramine Allergy (Intermediate, Verified 07/22/24 15:42) itching HPI HPI follow up s/p US 07/19/24: Details: Complex 59-year-old female who complains of bilateral lower extremity pain presents for routine follow-up with venous insufficiency testing. She reports generalized pain for bilateral lower extremities occasional swelling and tired feet. This has been persistent for several months. Of note she does have a prior history of fibromyalgia lower back pain. She now presents to us for follow-up with venous insufficiency testing. 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 GERD (gastroesophageal reflux disease) Anxiety Depression Fibromyalgia Surgical History Hx of surgical procedure (~02/19/24) Hx of elbow surgery History of colonoscopy (03/09/24) History of bilateral tubal ligation History of cholecystectomy Family History Family/Other Cancer Social History Household Members: None Housing: Apartment Are you a primary account executive healthcare to a significant other at home: No Do you presently have visiting nurse or other home services: Yes ([employer] 1 hour/day) Alcohol intake: current Alcohol intake frequency: does not drink Patient Tobacco Use Status: Never used Tobacco Advance Directives Date on File: 01/19/20 Current occupational status: disabled Sexual orientation: Straight/Heterosexual Gender identity: Female Female Reproductive History Menstrual Age of Menarche: 7 Review of Systems Const Reports as per HPI ENT Reports no additional complaints Card Denies chest pain, Denies chest pain at rest and Denies chest pain with activity Resp Denies chest congestion and Denies cough GI Reports no additional complaints Musc Details: pain over varicosities, aching of lower extremities, swelling, cramping, heaviness and tiredness, itching Denies abnormal gait Skin/Breast Reports pruritus and Denies wounds Neuro Reports no additional complaints and Denies abnormal gait Psych Denies no additional complaints Physical Exam Const General: cooperative, healthy appearing and comfortable Orientation/consciousness: oriented to person, oriented to place and oriented to time Neck Carotids: no bruits Chest Chest palpation & inspection: normal inspection of the chest and normal pa lpation of entire chest wall Resp Effort & Inspection: normal respiratory effort and able to speak in complete sentences Cardio Rate: regular rate Heart sounds: S1 normal heart sound present and S2 normal heart sound present Peripheral pulses: Peripheral pulses 2+ throughout GI Inspection: Yes normal to inspection Skin Other: +2 edema CEAP Classification C4 - skin color changes Ep - Etiology Primary As - superficial veins P - reflux General skin exam: dry skin Neuro General: oriented to person, oriented to place and oriented to time Extrem Right lower extremity: full ROM, normal capillary refill and edema Left lower extremity: full ROM, normal capillary refill and edema Psych Mental Status: mental status grossly normal Results Reviewed Results Reviewed: Brief summary of venous insufficiency testing is as follows: right great saphenous vein: Positive but small in caliber right small saphenous vein: negative right accessory vein: none present left great saphenous vein: negative left small saphenous vein: negative left accessory vein: none present Please note there is no evidence of any venous aneurysms or significant tortuosity Assessment & Plan Assessment & Plan (1) Varicose veins of both lower extremities with inflammation: Code(s): I83.11 - Varicose veins of right lower extremity with inflammation; I83.12 - Varicose veins of left lower extremity with inflammation Category: Medical Plan: In short patient is negative for any significant venous insufficiency. She is focally positive on the right but vein is small in caliber. I do think most of her issues are related to her fibromyalgia. We did discuss routine conservative measures including compression elevation and exercise. She will follow up with us on an as-needed basis. Thank you for allowing us to assist in her care. If there are any questions or concerns please do not hesitate to contact us Coding Level of Care Code Est Pt Level 4 (47620) Diagnoses Varicose veins of both lower extremities with inflammation I83.11; I83.12
--- OUTSIDE RECORDS SUMMARY | 2024-07-22 17:27 | XMS_ITS | Encounter Summary ---
Author Organization [employer] Address [address] [place] [address] Care Team Providers Care Fruit And Vegetable Factory Worker Name Role Phone Anthony Moreno MD Primary Care Provide r Encounter Details Date Type Department Care Team ([facility] st Contact Info) Description 05/10/2024 Telephone [facility] [address] [place], [place] [phone] Anthony Moreno MD [address] [place], [place] [phone] Social History Tobacco Use Types Packs/Day Years [...] Description 01/06/2025 10:00 AM EDT Office Visit [facility] ADULT DENTAL [address] [place] [address] Ev, Yary [address] [place] [address] documented as of this encounter Visit Diagnoses Not on filedocumented in this encounter Additional Health Concerns Assessment Noted Time PHQ-9 Depression Total Score: 1 08/19/19 24 1:27 PM EDT documented as of this encounter Care Teams Fruit And Vegetable Factory Worker Relationship Specialty Start Date End Date Anthony Moreno MD [address] [place] [address] PCP - General Internal Medicine 03/07/14 documented as of this encounter
--- OUTSIDE RECORDS SUMMARY | 2024-07-22 17:27 | XMS_ITS | Clinical Summary ---
Author Organization [employer] Address [address] [place] [address] Care Team Providers Care Theatrical Trouper Name Role Phone Anthony Moreno MD Primary [...] Under the care of Dr gary Lovett CLAIM ADMINISTRATOR , last seen 05/2024 She is now [...] synovitis on exam. She refused injection from [employer]. She had surgery on the right elbow for nerve pain and wants to he the left hand done. Instructor Technical Training recommended to continue with Tylenol and over [...] of films were also faxed to patient's panelboard tank pumper Assessment & Plan (01/06/2024 10:16 AM EDT): Evaluated by Rheumatology last seen 06/2023 recommended 1 year follow up Prior serology with negative SONYA, RF, and anti-CCP. Hand pain to the right is resolved, X-rays from 2022 showed osteoarthritis. No synovitis on exam. She refused injection from [employer] Technical [employer]. She had surgery on the right elbow for nerve pain and wants to he the left hand done. Instructor Technical Training recommended to continue with Tylenol and over [...] Evaluated by ENT ( [facility]) last seen 11/26/2023 They obtained a brain MRI and IACs at [facility] ) that was read as normal [...] neg, NILM, 04/03/[address] Lovett [facility] [place]oscopy: 08/17/2013 Dr. Smith. Repeat 03/09/2024 Dr Kaba [place] [facility] Normal aside from hemorrhoids, 10 yr follow up recommended Vaccines: Td: 06/07/2011 Declines booster Dexa scan: 05/25/2010. Assessment & Plan (11/27/2023 2:55 PM EDT): Mammogram: 03/14/2023 Normal Pap Smear: HPV neg, NILM, 04/03/[address] Lovett [facility] Colonoscopy: 08/17/2013 Dr. Smith. Scheduled for Feb 2024 for a repeat. Vaccines: Td: 06/07/2011 Declines booster Dexa scan: 05/25/2010. Assessment & Plan (01/16/2023 3:01 PM EDT): Mammogram: 03/11/2022 BIRADS 3, due Feb 2023 Pap Smear: HPV neg, NILM, 04/03/[address] Lovett [facility] Colonoscopy: 08/17/2013 Dr. Smith Vaccines: Td: 06/07/2011 Dexa scan: 05/25/2010. Assessment & Plan (08/06/2022 2:21 PM EDT): Mammogram: 03/11/2022 BIRADS 3, due Feb 2023 Pap Smear: HPV neg, NILM, 04/03/[address] Lovett [facility] [place] Colonoscopy: 08/17/2013 Dr. Smith Vaccines: Td: 06/07/2011 [...] to the fact thay they had no telecommunications technician. Pt is requesting to have the toenail [...] a Hx of severe anxiety. follows at [facility]. On Klonopin 0.5 mg po qd prn for anxiety. Chronic low back pain 01/14/2012 Assessment & Plan (08/06/2022 2:24 PM EDT): follows at [facility], receives epidural injections intermittently. Fibromyalgia 01/14/2012 Assessment [...] 2.02 Used to follow with Endocrinology at [facility] Endocrinology. She is on Synthroid 88 mcg po daily. Plan: Continue with current regimen Pt tells me the Passenger Agent already told her there was no need to f/u with them to only follow with us Assessment & Plan (08/19/2023 1:26 PM EDT): Pt here for a f/u Most recent TSH 06/18/2023 elevated at 9.46 Used to follow with Endocrinology at [facility] Endocrinology. She is on Synthroid 88 mcg po daily. Plan: Will repeat and if still elevated will increase it to 100 mcg po daily Pt tells me the Passenger Agent already told her there was no need to f/u with them to only follow with us Plan: continue current regimen. Will repeat TSH Assessment & Plan (06/17/2023 2:07 PM EST): Pt here for a f/u Most recent TSH 01/27/2023 elevated at 6.02 Used to follow with Endocrinology at [facility] Endocrinology. She was on Synthroid 75 mcg po daily. I increased it to 88 mcg po daily Pt tells me the Passenger Agent already told her there was no need to f/u with them to only follow with us Plan: continue current regimen. Will repeat TSH Assessment & Plan (01/16/2023 3:46 PM EDT): Pt here for a f/u Most recent TSH 03/27/2022 wnl Used to follow with Endocrinology at [facility] Endocrinology. She is currently on Synthroid 75 mcg po daily. Pt tells me the Passenger Agent already told her there was no need to f/u with them to only follow with us Plan: continue current regimen. Will repeat TSH Assessment & Plan (08/06/2022 2:27 PM EDT): Pt here for a f/u Most recent TSH 03/27/2022 wnl Used to follow with Endocrinology at [facility] Endocrinology. She is currently on Synthroid 75 mcg po daily. Pt tells me the Passenger Agent already told her there was no need [...] Encounters Date Type Department Care Team Description 07/19/2024 Orders Only [facility] External Provider, [facility] 07/16/2024 Orders Only [facility] [address] [place] [address] Anthony Moreno MD Chronic neck pain (Primary Dx); Chronic midline low back pain without sciatica 07/16/2024 Telephone [facility] [address] [facility] [address] Anthony Moreno MD Referral 07/14/2024 Refill [facility] [address] [place] [address] Anthony Moreno MD 07/08/2024 Telephone [facility] [address] [place] [address] Anthony Moreno MD Call Back Request 07/05/2024 10:00 AM EDT Office Visit [facility] [address] [place] [address] Yary Carreno Dental calculus (Primary Dx); Arthralgia of bilateral temporomandibular joint 07/01/2024 Refill [facility] [place] [address] Antonia Reeder ANP Seasonal allergies 06/29/2024 Orders Only [facility] [place] [address] Anthony Moreno MD Neck pain (Primary Dx) 06/28/2024 Telephone [facility] [place] [address] Anthony Moreno MD ER Follow-up; Referral 06/25/2024 Orders Only [facility] External Provider, [facility] 06/25/2024 Population [facility] Risk Score [facility] (C3) Department [address] [place] [phone] Provider, Population [facility] Generic 06/17/2024 2:30 PM EST Office Visit [facility] [place] [place] [address] Anthony Moreno MD Routine physical examination (Primary Dx); Postmenopausal bleeding; Bronchiectasis without complication (CMS/HCC); Liver lesion; Overweight (BMI 25.0-29.9); Peripheral polyneuropathy; Vascular insufficiency; Preventative health care 06/17/2024 Refill [facility] [place] [address] Anthony Moreno MD Peripheral polyneuropathy 06/17/2024 Travel 06/14/2024 Refill [facility] [place] [address] Anthony Moreno MD 06/08/2024 Patient Outreach [facility] [place] [address] Anthony Moreno MD Pre-visit Planning (SDOH Screening negative and Tobacco screening negative) 06/03/2024 Telephone [facility] [place] [address] Anthony Moreno MD Chart Prep 05/14/2024 Orders Only GENERIC EXTERNAL DATA DEPARTMENT Provider, Generic External Data 05/11/2024 Refill [facility] [place] [address] Anthony Moreno MD 05/10/2024 Telephone [facility] [address] [place], [place] [phone] Anthony Moreno MD from Last 3 Months [...] Description 01/06/2025 10:00 AM EDT Office Visit [facility] [address] [place] [address] Ev, Yary [address] [place] [address] Health Maintenance Due Date Last Done Comments [...] Procedure Name Priority Date/Time Associated Diagnosis Comments VASC US LOWER EXTREMITY VENOUS DUPLEX BILATERAL Routine 07/19/2024 1:00 PM EDT PERIODIC ORAL EVALUATION - ESTABLISHED PATIENT Routine [...] Recently Relevant to Health Maintenance Results * VASC US Lower Extremity Venous Duplex Bilateral (07/19/2024 1:00 PM EDT) 07/19/2024 1:00 PM EDT Narrative [facility] - 07/19/2024 2:23 PM EDT ? [facility] ?[address] ?[place] [address] ? Ultrasound Report ? Signed ? Patient: Steffanie Esquivel ?MR#: MM ?? [id number] ? : 1965 ?Acct:[id number] ? Age/Sex: 59 / F ?ADM Date: 04/07/25 ? Loc: HO.US ? Attending Dr: Isamar Griffith PA-C ? Ordering Physician: Isamar Griffith PA-C ?? Date of Service: 07/19/24 ?? Procedure(s): US venous duplex LE BI ?? Accession Number(s): [id number] ? cc: Anthony Blevins MD; Isamar Griffith PA-C ? EXAMINATION: ?? US LOWER EXTREMITY VENOUS (REFLUX EXAM), BILATERAL ? CLINICAL INFORMATION: ?? Varices. ? COMPARISON: ?? None. ? TECHNIQUE: ?? Color flow triplex imaging and compression Doppler was performed to ?? evaluate both the deep and the superficial systems bilaterally. To ?? evaluate the superficial system, the examination was performed in the ?? upright position. Color-flow Doppler ultrasound and compression ?? ultrasound were utilized. In addition, maneuvers were utilized to ?? demonstrate reflux. ? FINDINGS: ? 1. DEEP VENOUS ULTRASOUND OF THE RIGHT LOWER EXTREMITY: ?? Common Femoral Vein: Compressible, normal respiratory variation and ?? augmented flow. ? Femoral Vein: Compressible, normal color flow and augmentation. ?? Popliteal Vein: Compressible, normal augmentation. ? Deep Reflux: There is no evidence of reflux in the deep system in ?? either the common femoral vein, superficial femoral or the popliteal ?? vein. ? There is no evidence of a Wright's cyst. ? 2. SUPERFICIAL ULTRASOUND WITH DOPPLER OF RIGHT LOWER EXTREMITY: ? GREAT SAPHENOUS VEIN: ?? Saphenofemoral Junction: 0.7 cm; Reflux: 0 ms ?? Proximal Thigh: 0.6 cm; Reflux: 0 ms ?? Mid Thigh: 0.3 cm; Reflux: More than 2872 ms ?? Distal Thigh: 0.2 cm; Reflux: More than 1844 ms ?? At Knee: 0.2 cm; Reflux: No more than 2548 ms ?? Proximal Calf: 0.1 cm; Reflux: 0 ms ?? Mid Calf: 0.1 cm; Reflux: 0 ms ?? Distal Calf: 0.1 cm; Reflux: 0 ms ? DUPLICATED MEDIAL GREAT SAPHENOUS VEIN: ?? Diameter: None imaged ?? Reflux: NA ? DUPLICATED LATERAL GREAT SAPHENOUS VEIN: ?? Diameter: 0.2 cm. ?? Reflux: NA ? SMALL SAPHENOUS VEIN: ?? Saphenopopliteal Junction: 0.1 cm; Reflux: 0 ms ?? Proximal: 0.1 cm; Reflux: 0 ms ?? Distal: 0.1 cm; Reflux: 0 ms ? VEIN OF GIACOMINI: ?? Size: 0.1 cm. ?? Reflux: NA ? PERFORATORS: ?? Location: Great saphenous vein proximal calf. ?? Size: 0.2 cm. ?? Reflux: NA ? VARICOSITIES: ?? Location: None imaged. ?? Size: NA ?? Reflux: NA ? 3. DEEP VENOUS ULTRASOUND OF THE LEFT LOWER EXTREMITY: ?? Common Femoral Vein: Compressible, normal respiratory variation and ?? augmented flow. ? Femoral Vein: Compressible, normal color flow and augmentation. ?? Popliteal Vein: Compressible, normal augmentation. ? Deep Reflux: There is no evidence of reflux in the deep system in ?? either the common femoral vein, superficial femoral or the popliteal ?? vein. ? There is no evidence of a Wright's cyst. ? 4. SUPERFICIAL ULTRASOUND WITH DOPPLER OF LEFT LOWER EXTREMITY: ? GREAT SAPHENOUS VEIN: ?? Saphenofemoral Junction: 0.8 cm; Reflux: 0 ms ?? Proximal Thigh: 0.4 cm; Reflux: 0 ms ?? Mid Thigh: 0.2 cm; Reflux: 0 ms ?? Distal Thigh: 0.2 cm; Reflux: More than 2760 ms ?? At Knee: 0.1 cm; Reflux: 0 ms ?? Proximal Calf: 0.1 cm; Reflux: 0 ms ?? Mid Calf: 0.1 cm; Reflux: 0 ms ?? Distal Calf: 0.1 cm; Reflux: 0 ms ? DUPLICATED MEDIAL GREAT SAPHENOUS VEIN: ?? Diameter: None imaged ?? Reflux: NA ? DUPLICATED LATERAL GREAT SAPHENOUS VEIN: ?? Diameter: 0.2 cm. ?? Reflux: NA ? SMALL SAPHENOUS VEIN: ?? Saphenopopliteal Junction: 0.2 cm; Reflux: 0 ms ?? Proximal: 0.1 cm; Reflux: 0 ms ?? Distal: 0.2 cm; Reflux: 0 ms ? VEIN OF GIACOMINI: ?? Size: 0.2 cm. ?? Reflux: NA ? PERFORATORS: ?? Location: Small saphenous vein mid segment. ?? Size: 0.1 cm. ?? Reflux: NA ? VARICOSITIES: ?? Location: None Imaged ?? Size: NA ?? Reflux: NA ? US/US venous duplex LE BI ?? IMPRESSION: ?? Right: Venous insufficiency, great saphenous vein from the mid thigh to ?? below the knee. ? Left: Venous insufficiency, great saphenous vein above the knee. ? Electronically signed by: ??Noé Hernández MD ??07/19/2024 02:20 PM ?? EDT RP ? Dictated By: ?Noé Coleman MD ? Signed By: ?<Electronically signed by Noé Dela Cruz MD in OV> ? 07/19/24 1420 ? DD/ 1300 ? TD/TT: 07/19/24 1353 ? Lab Animal Technician: ? Procedure Note Donniall, Image - 07/19/2024 [place] [address] Ultrasound Report Signed Patient: Steffanie EsquivelMR#: MM [id number] : 1965Acct:[id number] Age/Sex: 59 / FADM Date: 07/19/24 Loc: HO. Attending Dr: Isamar Griffith PA-C Ordering Physician: Isamar Griffith PA-C Date of Service: 07/19/24 Procedure(s): US venous duplex LE BI Accession Number(s): [id number] cc: Anthony Blevins MD; Isamar Griffith PA-C EXAMINATION: US LOWER EXTREMITY VENOUS (REFLUX EXAM), BILATERAL CLINICAL INFORMATION: Varices. COMPARISON: None. TECHNIQUE: Color flow triplex imaging and compression Doppler was performed to evaluate both the deep and the superficial systems bilaterally. To evaluate the superficial system, the examination was performed in the upright position. Color-flow Doppler ultrasound and compression ultrasound were utilized. In addition, maneuvers were utilized to demonstrate reflux. FINDINGS: 1. DEEP VENOUS ULTRASOUND OF THE RIGHT LOWER EXTREMITY: Common Femoral Vein: Compressible, normal respiratory variation and augmented flow. Femoral Vein: Compressible, normal color flow and augmentation. Popliteal Vein: Compressible, normal augmentation. Deep Reflux: There is no evidence of reflux in the deep system in either the common femoral vein, superficial femoral or the popliteal vein. There is no evidence of a Wright's cyst. 2. SUPERFICIAL ULTRASOUND WITH DOPPLER OF RIGHT LOWER EXTREMITY: GREAT SAPHENOUS VEIN: Saphenofemoral Junction: 0.7 cm; Reflux: 0 ms Proximal Thigh: 0.6 cm; Reflux: 0 ms Mid Thigh: 0.3 cm; Reflux: More than 2872 ms Distal Thigh: 0.2 cm; Reflux: More than 1844 ms At Knee: 0.2 cm; Reflux: No more than 2548 ms Proximal Calf: 0.1 cm; Reflux: 0 ms Mid Calf: 0.1 cm; Reflux: 0 ms Distal Calf: 0.1 cm; Reflux: 0 ms DUPLICATED MEDIAL GREAT SAPHENOUS VEIN: Diameter: None imaged Reflux: NA DUPLICATED LATERAL GREAT SAPHENOUS VEIN: Diameter: 0.2 cm. Reflux: NA SMALL SAPHENOUS VEIN: Saphenopopliteal Junction: 0.1 cm; Reflux: 0 ms Proximal: 0.1 cm; Reflux: 0 ms Distal: 0.1 cm; Reflux: 0 ms VEIN OF GIACOMINI: Size: 0.1 cm. Reflux: NA PERFORATORS: Location: Great saphenous vein proximal calf. Size: 0.2 cm. Reflux: NA VARICOSITIES: Location: None imaged. Size: NA Reflux: NA 3. DEEP VENOUS ULTRASOUND OF THE LEFT LOWER EXTREMITY: Common Femoral Vein: Compressible, normal respiratory variation and augmented flow. Femoral Vein: Compressible, normal color flow and augmentation. Popliteal Vein: Compressible, normal augmentation. Deep Reflux: There is no evidence of reflux in the deep system in either the common femoral vein, superficial femoral or the popliteal vein. There is no evidence of a Wright's cyst. 4. SUPERFICIAL ULTRASOUND WITH DOPPLER OF LEFT LOWER EXTREMITY: GREAT SAPHENOUS VEIN: Saphenofemoral Junction: 0.8 cm; Reflux: 0 ms Proximal Thigh: 0.4 cm; Reflux: 0 ms Mid Thigh: 0.2 cm; Reflux: 0 ms Distal Thigh: 0.2 cm; Reflux: More than 2760 ms At Knee: 0.1 cm; Reflux: 0 ms Proximal Calf: 0.1 cm; Reflux: 0 ms Mid Calf: 0.1 cm; Reflux: 0 ms Distal Calf: 0.1 cm; Reflux: 0 ms DUPLICATED MEDIAL GREAT SAPHENOUS VEIN: Diameter: None imaged Reflux: NA DUPLICATED LATERAL GREAT SAPHENOUS VEIN: Diameter: 0.2 cm. Reflux: NA SMALL SAPHENOUS VEIN: Saphenopopliteal Junction: 0.2 cm; Reflux: 0 ms Proximal: 0.1 cm; Reflux: 0 ms Distal: 0.2 cm; Reflux: 0 ms VEIN OF GIACOMINI: Size: 0.2 cm. Reflux: NA PERFORATORS: Location: Small saphenous vein mid segment. Size: 0.1 cm. Reflux: NA VARICOSITIES: Location: None Imaged Size: NA Reflux: NA US/US venous duplex LE BI IMPRESSION: Right: Venous insufficiency, great saphenous vein from the mid thigh to below the knee. Left: Venous insufficiency, great saphenous vein above the knee. Electronically signed by: Noé Hernández MD 07/19/2024 02:20 PM EDT RP Dictated By: Noé Coleman MD Signed By: <Electronically signed by Noé Dela Cruz MDin OV> 07/19/24 1420 DD/ 1300 TD/TT: 07/19/24 1353 Lab Animal Technician: [facility] External Provider CV VASC ULAR PROCEDURES Final Result [facility] [address] [place] [id number] * CT Cervical Spine w/o Contrast (06/25/2024 12:30 PM EDT) Anatomical Region Laterality Modality Spine, C-spine Computed Tomogra phy 06/25/2024 12:3 0 PM EDT Narrative 06/25/2024 1:01 PM EDT ? [facility] ?[address] ?[place] [address] ? CT Scan Report ? Signed ? Patient: Sourav James Ivette ?MR#: MM ?? [id number] ? : 1965 ?Acct:[id number] ? Age/Sex: 59 / F ?ADM Date: 03/14/25 ? Loc: HO.ED ? Attending Dr: ? Ordering Physician: Saloni Rodriguez NP ?? Date of Service: 06/25/24 ?? Procedure(s): CT cervical spine wo IV con ?? Accession Number(s): [id number] ? cc: Anthony Blevins MD; Saloni Rodriguez NP ? Report Number: ?? [id number]: Total DLP = ??361.00 mGy-cm ?? EXAMINATION: [...] DD/ 1230 ? TD/TT: 06/25/24 1249 ? Lab Animal Technician: ? Procedure Note Donlovelyter, Image - 06/25/[address] [address] [address] Scan Report Signed Patient: Steffanie EsquivelMR#: MM [id number] : 1965Acct:[id number] Age/Sex: 59 / FADM Date: 06/25/24 Loc: HO.ED Attending Dr: Ordering Physician: Saloni Rodriguez NP Date of Service: 06/25/24 Procedure(s): CT cervical spine wo IV con Accession Number(s): [id number] cc: Anthnoy Blevins MD; Saloni Rodriguez NP Report Number: [id number]: Total DLP = 361.00 mGy-cm EXAMINATION: CT [...] 06/25/24 1258 DD/ 1230 TD/TT: 06/25/24 1249 Lab Animal Technician: [facility] External Provider IMG CT PROCEDURES Final Result * Hematoxylin and Eosin Stain (05/14/2024 9:28 AM EST) 05/14/2024 9:28 AM EST 05/14/2024 11:10 AM EST [facility] - 05/17/2024 5:33 PM EST ----- ------- Name: Steffanie Esquivel ? Age/Sex: 59/F ? : 1965 Unit#: [id number] ?? Attend Dr: Gary Lovett MD ?Re05/14/24 ?Status: DEP SDC ? Location: HO.SSS ?Disch: ? ----- ------- SPEC : [id number] ?RECD: 05/14/24 ? STATUS: ??SOUT ? REQ NUM: [id number] ? RAIMUNDO: 05/14/24 ? SUBM DR: Gary [...] ? Age/Sex: 59/F ? : 1965 Unit#: [id number] ?? Attend Dr: Gary Lovett MD ?Re05/14/24 ?Status: DEP [facility] [place] [place] ? Location: HO.SSS ?Disch: ? ----- ------- SPEC : [id number] ?RECD: 05/14/24 ? STATUS: ??SOUT ? REQ NUM: [id number] ? RAIMUNDO: 05/14/24 ? SUBM DR: Gary Lovett MD ? ENTERED: ??05/14/24 ?SP TYPE: Surgical ? OTHR DR: Anthony Blevins MD ?? ORDERED: ??HE Stain/6, Gross Micro L4/3 ? Gross Description ?(Continued) cassette [facility] Copies To: ?? Anthony Blevins MD ?? [facility] ?? [address] ?? [place] [address] ?? [phone] ?? Gary Lovett MD ?? [facility] ?? [address] ?? [place] [address] ?? [phone] ----- ------- Signed (signature on file) Edwige Andrew MD 05/17/24 1733 ? ----- ------- ? END OF REPORT ? us Generic External Data Provider LAB BLOOD ORDERAB LES Final Result Performing Organization Address [facility]/State/ZIP Co de Phone Number [facility] [address] [place] [address] [phone] * BI US Breast Limited Bilateral (04/09/2024 10:45 AM EST) Anatomical Region Laterality Modality Breast Bilateral Ultrasound 04/09/2024 10:4 5 AM EST Narrative 04/09/2024 11:01 AM EST ? [facility] ? [address] ?[place] [address] ? Ultrasound Report ? Signed ? Patient: Sourav James Ivette ?MR#: MM ?? [id number] ? : 1965 ?Acct:[id number] ? Age/Sex: 59 / F ?ADM Date: 12/27/24 ? Loc: HO.MAMMO ? Attending Dr: Anthony Blevins MD ? Ordering Physician: Anthony Blevins MD ?? Date of Service: 04/09/24 ?? Procedure(s): US breast BI limited mamm only ?? Accession Number(s): [id number] ? cc: Anthony Blevins MD ? EXAMINATION: [...] next mammogram. ? Electronically signed by: ??Priya Williamsonbarrie DO ??04/09/2024 10:58 AM EST ?? RP ? Dictated By: ?Priya Self DO ? Signed By: ?<Electronically signed by Priya Self, DO in OV> ? 04/09/24 1058 ? DD/ 1045 ? TD/TT: 04/09/24 1057 ? Lab Animal Technician: ? Procedure Note Olesya, Image - 04/09/2024 [place] [facility] [address] [place], [place] [address] Ultrasound Report Signed Patient: Steffanie EsquivelMR#: MM [id number] : 1965Acct:[id number] Age/Sex: 59 / FADM Date: 04/09/24 Loc: HO.MAMMO Attending Dr: Anthony Blevins MD Ordering Physician: Anthony Blevins MD Date of Service: 04/09/24 Procedure(s): US breast BI limited mamm only Accession Number(s): [id number] cc: Anthony Blevins MD EXAMINATION: MM DIAGNOSTIC [...] by: Priya Self DO 04/09/2024 10:58 AM [facility] Dictated By: Tyminski,Priya DO Signed By: <Electronically signed by Priya Self, DO in OV> 04/09/24 1058 DD/ 1045 TD/TT: 04/09/24 1057 Lab Animal Technician: Anthony Muller MD [facility] US PROCEDURES Fin al Result * Pap Smear (03/17/2024 9:55 AM EST) 03/17/2024 9:55 AM EST 03/18/2024 8:20 AM EST [facility] - 03/24/2024 10:20 AM EST ----- ------- Name: Steffanie Esquivel ? Age/Sex: 59/F ? : 1965 Unit#: [id number] ?? Attend Dr: Gary Lovett MD ?Re03/17/24 ?Status: DEP REF ? Location: HO.LNP ?Disch: ? ----- ------- SPEC : [id number] ?RECD: 12 ? STATUS: ??SOUT ? REQ NUM: [id number] ? RAIMUNDO: 03/17/24 ? SUBM DR: Gary [...] Copies To: ?? Anthony Blevins MD ?? [facility] ?? [address] ?? [place] [address] ?? [phone] ?? Gary Lovett MD ?? [facility] ?? [address] [place] [address] [address] ?? [place] [address] ?? [phone] ----- ------- Signed (signature on file) RYAN Candelario (ASCP) 03/24/24 1020 ? ----- ------- ? END OF REPORT ? Generic External Data Provider LAB CYTOLOGY HEATHERHero RABLES Final Result Performing Organization Address [facility] Co de Phone Number [facility] [address] [place] [phone] * Hm Colonoscopy (03/09/2024 9:14 AM EST) Pathologist [facility] Colonoscopy Normal Normal 03/09/2024 9:14 AM EST Historical Provider HEALTH MAINTENANCE Final Result * Hepatitis C Antibody with Reflex to HCV, RNA, Quantitative, Real-Time PCR (01/27/2023 1:47 PM EDT) Hepatitis C Antibody Nonreactive Nonreactive [facility] Comment:Antibodies to HCV no t detected; does not exclude early acuteHCV infection. Blood Venous blood specimen / Unknown 01/27/2023 1:47 PM EDT 01/27/2023 1:47 PM EDT Anthony Muller MD LAB BLOOD ORDERABLES Final Result Performing Organization Address [facility] Co de Phone Number [facility] [address] [place] [address] [phone] * HPV E6/E7 RFLX MIKAL 16 18/45 (04/03/2021 3:12 PM EST) HPV mRNA E6/E7 rflx Not Detected Not Detected [facility] Comment: Methodology: Wood Panel Inspector-Mediated Amplification This assay detects E6/E7 viral messenger RNA (mRNA) from 14 high-risk HPV types (16,18,31,33,35,39,45,51,52,56,58,59,66,68). The analytical performance characteristics of this assay have been determined by [employer]. The modifications have not been cleared or approved by the FDA. This assay has been validated pursuant to the CLIA regulations and is used for clinical purposes. For additional information, please refer to http://education.Footfall123/faq/FSA764v4 (This link if provided for information/ educational purposes only.) THIS TEST WAS PERFORMED AT: [facility] [address] FLOOR,[address] [place], [place] ??[address] FABRICIO SINHA MD 04/03/2021 3:12 PM EST Gary Lovett MD HISTORICAL/NON ORDERABLE LABS Fi nal Result [facility] [address] from Last 3 Months or Most Recently Relevant to Health Maintenance Insurance 2 [place] [address] [place] MEDICAID STAND ADULT [facility] C3 D[facility]AL-[facility] MEDICAID STAND ADULT Care Teams Theatrical Trouper Relationship Specialty Start Date End Date Anthony Moreno MD [address] [place] [address] PCP - General Internal Medicine 03/07/14
--- OUTSIDE RECORDS SUMMARY | 2024-07-22 17:27 | XMS_ITS | Encounter Summary ---
Author Organization [employer] Address [address] [facility] 7t [place] [address] Care Team Providers Care Touch Up Edger Name Role Phone Anthony Moreno MD Primary Care Provide r Reason for Visit * Reason Onset Date Comments Call Back Request 07/08/2024 Encounter Details Date Type Department Care Team ([facility] Contact Info) Description 07/08/2024 Telephone [facility] MEDICINE [address] [place], [place] [phone] Anthony Moreno MD 230 [place] [address] Call Back Request Social History Tobacco Use [...] to get done. Please return call to [phone] documented in this encounter Plan of Treatment Upcoming Encounters Date Type Department Care Team (Late st Contact Info) Description 01/06/2025 10:00 AM EDT Office Visit [facility] ADULT DENTAL [address] [place] [address] Ev, Yary [address] [place] [address] documented as of this encounter Visit Diagnoses Not on filedocumented in this encounter Additional Health Concerns Assessment Noted Time PHQ-9 Depression Total Score: 5 06/18/19 25 2:26 PM EST documented as of this encounter Care Teams Touch Up Edger Relationship Specialty Start Date End Date Anthony Moreno MD 230 [place] [address] PCP - General Internal Medicine 03/07/14 documented as of this encounter
--- OUTSIDE RECORDS SUMMARY | 2024-07-22 17:27 | XMS_ITS | Encounter Summary ---
Demographics Address [address] [facility] [address] [place] [address] Mobile Phone Home Phone Preferred Language es Marital Status Single Religion Affiliation Unknown Race Other Race Ethnic Group or Author Organization [employer] Address [address] [facility] [address] 7t [place] [address] Care Team Providers Care Filing And Polishing Supervisor Name Role Phone Anthony Moreno MD Primary Care Provide r Encounter Details Date Type Department Care Team ([facility] Contact Info) Description 07/19/2024 Orders Only [facility] External Provider, [facility] Social History Tobacco Use Types Packs/Day [...] Description 01/06/2025 10:00 AM EDT Office Visit [facility] ADULT DENTAL [address] [place] [address] Ev, Yary [address] [place] [address] documented as of this encounter Procedures Procedure Name Priority Date/Time Associated Diagnosis Comments VASC US LOWER EXTREMITY VENOUS DUPLEX BILATERAL Routine 07/19/2024 1:00 PM EDT documented in this encounter Results * VASC US Lower Extremity Venous Duplex Bilateral (07/19/2024 1:00 PM EDT) 07/19/2024 1:00 PM EDT Narrative [facility] IM[facility]ING - 07/19/2024 2:23 PM EDT ? [facility] ?[address] ?[place] [address] ? Ultrasound Report ? Signed ? Patient: Steffanie Esquivel ?MR#: [id number] ?? [id number] ? : 1965 ?Acct:[id number] ? Age/Sex: 59 / F ?ADM Date: 04/07/25 ? Loc: HO.US ? Attending Greg TOWNSEND-C ? Ordering Physician: Isamar Griffith PA-C ?? Date of Service: 07/19/24 ?? Procedure(s): US venous duplex LE BI ?? Accession Number(s): [id number] ? cc: Anthony Blevins MD; Isamar Griffith [...] DD/ 1300 ? TD/TT: 07/19/24 1353 ? Head Miller: ? Procedure Note Donlovelyter, Image - 07/19/2024 [place] [address] Ultrasound Report Signed Patient: Steffanie EsquivelMR#: [id number] : 1965Acct:[id number] Age/Sex: 59 / FADM Date: 07/19/24 Loc: HO.US Attending Dr: Isamar Griffith PA-C Ordering Physician: Isamar Griffith PA-C Date of Service: 07/19/24 Procedure(s): US venous duplex LE BI Accession Number(s): [id number] cc: Anthony Blevins MD; Isamar Griffith PA-C [...] 07/19/24 1420 DD/ 1300 TD/TT: 07/19/24 1353 Head Miller: [facility] External Provider CV VASC ULAR PROCEDURES Final Result [facility] [address] [place] [address] documented in this encounter Visit Diagnoses Not on filedocumented in this encounter Additional Health Concerns Assessment Noted Time PHQ-9 Depression Total Score: 5 06/18/19 25 2:26 PM EST documented as of this encounter Care Teams Filing And Polishing Supervisor Relationship Specialty Start Date End Date Anthony Moreno MD [address] [place] [address] PCP - General Internal Medicine 03/07/14 documented as of this encounter
--- OUTSIDE RECORDS SUMMARY | 2024-07-22 17:27 | XMS_ITS | Data Portability ---
Author Organization [place] [facility], Allergy Address [address] [place] [address] Care Team Providers Care Application Services Manager Name Role Phone SOPHIE KIM Primary Care [...] AUDITORY CANAL, W/WO CONTRAST 2023 024 [facility] [facility]), [address], [place], [address], 12:39:15 Medication Orders None recorded. Patient TargetsNo [...] contr ast No observ ation record ed. [email or web address] [facility] [address] [facility] [place], [address], 09/24/2023 15:40:17 12/03/19 24 09/04/2023 imagi ng/di agnos tic resul t No observ ation record ed. [email or web address] Not Available 20:41:55 Result Notes None recorded. 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, including 'globus hystericus '; Note: Date Diagnosed: 03/04/2018 3:21 PM (F45.8) Not Available [facility] 4 03:26:41 Gastroeso phageal reflux disease without esophagit is 763663184 Active 2017 Gastro-eso phageal reflux disease without esophagiti s; Note: Date Diagnosed: 03/04/2018 3:24 PM (K21.9) Not Available [facility] 4 03:26:41 Dysphagia 98635177 Active 2017 Other dysphagia; Note: Date Diagnosed: 03/04/2018 3:21 PM (R13.19) Not Available [facility] 4 03:26:41 Sensorine ural hearing loss of bilateral ears 123765833 Active 2023 MAYO TADEO, YASMIN [address] [facility],[place] [address], [place], [address] , [place] [facility] 4 11:10:51 Vertigo 467368613 Active 2023 DIPTI BLOOD PA-C [address] [facility] 100, [place], [address] , [place] [facility] 4 11:46:48 Migrainou s vertigo 946952061 Active 2023 DIPTI BLOOD PA-C [address] [facility] 100, [place], [address] , [place] - [facility] 4 15:38:23 Bilateral earache 940521785 Active 2023 DIPTI BLOOD PA-C [address] [place],[facility] 100, [place], [address] , [facility] - [facility] 11:22:43 Temporoma ndibular joint disorder 73467112 Active 2023 DIPTI BLOOD PA-C [address] [place],[facility] 100, [place], [address] , [facility] - [facility] 11:23:02 Problem Notes None recorded. Procedures Surgical History Date Name Laterality Status Provider Name and Address Organization Details Recorded Time Comp Audio with Tymps & Reflexes (60060 & 76577) completed YASMIN STEVENSON [address] [facility] [place],[facility] 100, [place], [address], [facility] - [facility] 09/04/2023 11:10:42 Imaging Results Imaging Date Name Status LastModified by Organiz ation Details LastModified Time 09/22/2023 MRI, brain + internal auditory canal, w/wo contrast completed [id number] [facility] [address] [place], [address], 09/24/2023 15:40:17 09/04/2023 imaging/diagn ostic result completed [...] mcg tablet 2016 active Medicati on ID: [id number] D uration Value: 30 Brand Name: levothyr [...] 1291 DIPTI BLOOD PA-C [facility] [address] [address] 09/04/2023 10:26:40 09/04/2023 12:03:25 Sensorineural hearing loss of bilateral ears 429593618 H90.3 Audiologic al evaluation results:Ri ght ear:{{Norm [...] 1kHz, AD, and contra 1kHz, . Vertigo 575772436 R42 Associated pre-syncop e and arm weakness Migrainous vertigo 85178 4007 H81.8X9 45882 COLE SANTORO MD [facility] [address] [address] 11/26/2023 10:49:19 11/26/2023 11:27:05 Bilateral earache 439238093 H92.03 Temporoman dibular joint disorder 38469516 M26.609 Migrainous vertigo 43120 4007 H81.8X9 Health Concerns Section Related Observation LastModified by Organization Detai ls LastModified Time None Recorded Concern Status LastModified by Organization Details LastModified Time None Recorded Advance Directives Directive None Recorded Payers Encounter Date Sequence Insurance Name Policy Number Policy Abraham Covered Member ID Abraham Member ID Guarantor Name 09/04/2023 1 [place] [facility] Steffanie Benjamin James [id number] Steffanie Benjamin 11/26/2023 1 [place] [facility] Steffanie Benjamin James [id number] Steffanie Benjamin Notes Date Note Type Note [...] sugar in the diet. DIPTI BLOOD PA-C [address] [place] [address], [address], [facility] - [facility] 09/04/2023 15:39:50 11/26/2023 text/html 58 year [...] jaw pops and cracks. COLE PICKENS MD [address] [place] [address], [place], [address], [place] - [facility] 11/26/2023 13:04:47 OBGyn Episode No OBEpisode recorded.
--- OUTSIDE RECORDS SUMMARY | 2024-07-22 17:27 | XMS_ITS | Clinical Summary ---
Author Organization [facility] Address [address] [place] [address] Phone Care Team Providers Care Sign Builder Supervisor Name Role Phone Anthony Blevins MD Primary [...] AM EDT Office Visit Orthopedic Surgery - [address] [place] [address] Jesus Alberto Welch MD Arthritis [...] - 2023-2 5 season) 2023 10/28/2020, 10/06/2020 Colorectal Cancer Screening: Colonoscopy 01/31/2024 HIV Screening 01/31/2024 Social Influencers of Health Screening 01/31/2024 Influenza Vaccine (Season Ended) 2024 Depression Screening 06/17/2025 06/17/2024 Cervical Cancer Screening: [...] age to complete this topic Meningococcal B Vaccine Aged Out No l onger eligible based on patient's age to complete [...] topic Insurance [place]ICAID - [place] Care Teams Sign Builder Supervisor Relationship Specialty Start Date End Date Anthony Blevins MD [address] [place] [phone] PCP - General 01/12/24
--- OUTSIDE RECORDS SUMMARY | 2024-07-22 17:28 | XMS_ITS | Encounter Summary ---
Author Organization [employer] [facility] Address [address] [facility] 7t [place] [address] Care Team Providers Care Sr. Merchandise Planner Name Role Phone Anthony Moreno MD Primary Care Provide r Encounter Details Date Type Department Care Team (Latest Contact Info) Description 11/20/2020 Abstract [facility] CONVERSION[facility] Dental, Provider, DDS Social History [...] Description 01/06/2025 10:00 AM EDT Office Visit [facility] ADULT DENTAL [address] [place] [address] Ev, Yary [address] [place] [address] documented as of this encounter Visit Diagnoses Not on filedocumented in this encounter Care Teams Sr. Merchandise Planner Relationship Specialty Start Date End Date Anthony Moreno MD 230 [place] [address] PCP - General Internal Medicine 03/07/14 documented as of this encounter
--- OUTSIDE RECORDS SUMMARY | 2024-07-22 17:28 | XMS_ITS | Encounter Summary ---
Author Organization [facility] Address [address] [facility] 7t [place] [address] Care Team Providers Care Quality Control Checker Name Role Phone Anthony Moreno MD Primary Care Provide r Encounter Details Date Type Department Care Team (Late st Contact Info) Description 03/19/2022 Abstract [facility] MEDICINE [address] [place] [address] ProviderRick MD Social History Tobacco Use Types [...] Description 01/06/2025 10:00 AM EDT Office Visit [facility] ADULT DENTAL [address] [place] [address] Ev, Yary [address] [place] [address] documented as of this encounter Visit Diagnoses Not on filedocumented in this encounter Care Teams Quality Control Checker Relationship Specialty Start Date End Date Anthony Moreno MD [address] [place] [address] PCP - General Internal Medicine 03/07/14 documented as of this encounter
--- OUTSIDE RECORDS SUMMARY | 2024-07-22 17:28 | XMS_ITS | Encounter Summary ---
Author Organization [employer] [facility] Address [address] [facility] 7t [place] [address] Care Team Providers Care Press Machine Feeder Name Role Phone Anthony Moreno MD Primary Care Provide r Encounter Details Date Type Department Care Team (Latest Contact Info) Description 06/24/2018 Abstract [facility] CONVERSIONS Dental, Provider, DDS Social History [...] Description 01/06/2025 10:00 AM EDT Office Visit [facility] ADULT DENTAL [address] [place] [address] Ev, Yary [address] [place] [address] documented as of this encounter Visit Diagnoses Not on filedocumented in this encounter Care Teams Press Machine Feeder Relationship Specialty Start Date End Date Anthony Moreno MD 230 [place] [address] PCP - General Internal Medicine 03/07/14 documented as of this encounter
--- OUTSIDE RECORDS SUMMARY | 2024-07-22 17:28 | XMS_ITS | Encounter Summary ---
Author Organization [employer] [facility] Address [address] [facility] 7t [place] [address] Care Team Providers Care Newspaper Distributor Supervisor Name Role Phone Anthony Moreno MD Primary Care Provide r Encounter Details Date Type Department Care Team (Late Contact Info) Description 03/29/2022 Abstract [facility] MEDICINE [address] [place], [place] [phone] Anthony Moreno MD 230 [place], [place] [phone] Social History Tobacco Use Types Packs/Day Years [...] Description 01/06/2025 10:00 AM EDT Office Visit [facility] ADULT DENTAL [address] [place], [place] [phone] EvJefferyYary [address] [place], [place] [phone] documented as of this encounter Procedures Procedure Name Priority Date/Time Associated Diagnosis Comments BI MAMMOGRAM DIAGNOSTIC BILATERAL Routine 03/11/2022 3:54 PM EST documented in this encounter Results * (ABNORMAL) BI Mammogram Diagnostic Bilateral (03/11/2022 3:54 PM EST) Anatomical Region Laterality Modality Breast Bilateral Mammography Narrative 03/11/2022 3:54 PM EST Birads 3 - recommended bilateral diagnostic at time ??of annual exam in 12 months ([place] ) us Historical Provider MD HARP BI PROCEDURES Final R esult documented in this encounter Visit Diagnoses Not on filedocumented in this encounter Care Teams Newspaper Distributor Supervisor Relationship Specialty Start Date End Date Anthony Moreno MD [address] [place] [address] PCP - General Internal Medicine 03/07/14 documented as of this encounter
--- OUTSIDE RECORDS SUMMARY | 2024-07-22 17:28 | XMS_ITS | Encounter Summary ---
Author Organization [employer] [facility] Address [address] [facility] 7t [place] [address] Care Team Providers Care Cloth Napping Supervisor Name Role Phone Anthony Moreno MD Primary Care Provide r Encounter Details Date Type Department Care Team (Late Contact Info) Description 08/22/2022 Abstract [facility] MEDICINE [address] [place], [place] [phone] Anthony Moreno MD [address] [place], [place] [phone] Social History Tobacco Use Types Packs/Day Years [...] Description 01/06/2025 10:00 AM EDT Office Visit [facility] ADULT DENTAL [address] [place], [place] [phone] Yary Carreno 230 [place] [address] documented as of this encounter Procedures Procedure Name Priority Date/Time Associated Diagnosis Comments COLONOSCOPY Routine 08/17/2013 documented in this encounter Results * Colonoscopy (08/17/2013) Colonoscopy Normal Normal 08/17/2013 Aidee Benedict - 08/17/2013 2:57 PM EDT Recommended 10 year follow up ( [facility] ) Historical Provider HEALTH MAINTENANCE Final Result documented in this encounter Visit Diagnoses Not on filedocumented in this encounter Care Teams Cloth Napping Supervisor Relationship Specialty Start Date End Date Anthony Moreno MD [address] [place] [address] PCP - General Internal Medicine 03/07/14 documented as of this encounter
--- OUTSIDE RECORDS SUMMARY | 2024-07-22 17:28 | XMS_ITS | Encounter Summary ---
Author Organization [employer] Address [address] [facility] [address] 7t [place] [address] Care Team Providers Care Fabricator Assembler Metal Products Name Role Phone Anthony Moreno MD Primary Care Provide r Reason for Visit * Reason Comments Med Refill Encounter Details Date Type Department Care Team ([facility] st Contact Info) Description 05/14/2023 Refill [facility] MEDICINE [address] [place], [place] [phone] Anthony Moreno MD [address] [place], [place] [phone] Social History Tobacco Use Types Packs/Day Years [...] Description 01/06/2025 10:00 AM EDT Office Visit [facility] ADULT DENTAL [address] [place] [address] Ev, Yary [address] [place] [address] documented as of this encounter Visit Diagnoses Not on filedocumented in this encounter Care Teams Fabricator Assembler Metal Products Relationship Specialty Start Date End Date Anthony Moreno MD [address] [place] [address] PCP - General Internal Medicine 03/07/14 documented as of this encounter
--- OUTSIDE RECORDS SUMMARY | 2024-07-22 17:28 | XMS_ITS | Encounter Summary ---
Author Organization [employer] Address [address] [facility] 7t [place] [address] Care Team Providers Care Automotive Machinist Apprentice Name Role Phone Anthony Moreno MD Primary Care Provide r Reason for Visit * Reason Onset Date Comments Clarification 03/18/2023 Encounter Details Date Type Department Care Team ([facility] Contact Info) Description 03/18/[address] [facility] MEDICINE [address] [place], [place] [phone] Anthony Moreno MD [address] [place], [place] [phone] Clarification Social History Tobacco Use Types Packs/Day [...] the past 12 months, has t he [employer], gas, oil or water [employer] threatened to shut off services in your [...] 4:50 PM EST Tc from Donna From [facility] pharmacy calling in for a Clarification on script for: chlorhexidine (Peridex) 0.12 % solution. Donna states medication instruction does not specify how many times a day pt should take solution. Please contact Donna @ [phone] documented in this encounter Plan of Treatment Upcoming Encounters Date Type Department Care Team (Late st Contact Info) Description 01/06/2025 10:00 AM EDT Office [address] [facility] ADULT DENTAL [address] [place] [address] Ev, Yary [address] [place] [address] documented as of this encounter Visit Diagnoses Not on filedocumented in this encounter Care Teams Automotive Machinist Apprentice Relationship Specialty Start Date End Date Anthony Moreno MD [address] [place] [address] PCP - General Internal Medicine 03/07/14 documented as of this encounter
== END 2024-07-22 16:08 | disposition home or self-care (01) ==
LOC: HO.HVS 14:49
PROVIDERS: PCP Internal Medicine; Visit Provider Surgery Vascular Surgery
DX: I83.11 Varicose veins of right lower extremity with inflammation (principal); I83.12 Varicose veins of left lower extremity with inflammation
CPT/HCPCS: 99214

== ENCOUNTER → 2024-07-22 14:49 | Outpatient (BNVA) | payer MEDICAID, SELFPAY | PROVIDERS: PCP Internal Medicine; Visit Provider Surgery Vascular Surgery | DX: I83.11 Varicose veins of right lower extremity with inflammation (principal); I83.12 Varicose veins of left lower extremity with inflammation | CPT/HCPCS: 99212 ==

== ENCOUNTER 2024-07-27 11:55 | Outpatient (AMB) | payer MEDICAID, SELFPAY ==
--- NOTE | 2024-07-27 12:03 | A.OFFVIS_ITS ---
Vital Signs 07/27/24 12:06 Height 5 ft 1 in Weight 143 lb 11.862 oz BMI 27.2 BP 148/77 H Blood Pressure Location Lt brachial Position Sitting Pulse 61 Intake Visit Reasons: s/p colo Intake Note: Patient in office today in follow up s/p colonoscopy.. CC: Patient c/o abdominal pain, nausea and diarrhea about once a week. Denies other GI symptoms. Outside Sales Account Representative Required: Yes Outside Sales Account Representative Language: Citizen [place] Accompanied by: Self / Same As Patient Allergies cholestyramine Allergy (Intermediate, Verified 07/27/24 12:11) itching HPI HPI s/p colo: Details: Assessment & Plan (1) GERD (gastroesophageal reflux disease): Code(s): K21.9 - Gastro-esophageal reflux disease without esophagitis Category: Medical (2) Irritable bowel syndrome with diarrhea: Code(s): K58.0 - Irritable bowel syndrome with diarrhea Category: Medical (3) Pre-op examination: Code(s): Z01.818 - Encounter for other preprocedural examination Category: Medical Plan Citizen [place] #Noemi Fink She has been told by her pharmacy that her nakul needs another PA but since WE were not informed we have not been working on this. I had send a renewal 08/11. She continues on Dexilant, bentyl and simethicone. She has been using imodium in the meantime. She was just dx'ed with FMS and is struggling to get a PA for pregabalin. There are no prior problems with anesthesia or sedation. No ID problems. NO FHX of colon cancer or polyps. ROV 4 weeks. Medications: New peg 3350-electrolytes 236-22.74-6.74 -5.86 gram (Golytely) until fecal effluent is clear; do not exceed a total volume of 2,000 mL 240 mL PO Q10M 4,000 mL 0RF 1 day Z12.11 - Encounter for screening for malignant neoplasm of colon bisacodyl (Dulcolax (bisacodyl)) 10 mg (2 x 5 mg) PO BEDTIME 4 tabs 0RF 2 days Refilled dicyclomine 20 mg PO QID 120 tabs 6RF 30 days K58.9 - Irritable bowel syndrome without diarrhea simethicone (Gas Relief (simethicone)) 180 mg PO QID 120 caps 6RF dexlansoprazole (Dexilant) 60 mg PO DAILY 30 caps 6RF 30 days K21.9 - Gastro- esophageal reflux disease without esophagitis COLONOSCOPY 03/09/24 Findings: Mucosa: Normal to cecum and terminal ileum. Protruding lesions: * Medium internal hemorrhoids without stigmata of recent bleeding. Impression: 1. Normal colon and terminal ileum mucosa 2. Internal hemorrhoids Recommendations: - Repeat colonoscopy for asymptomatic colorectal cancer screening in 10 years. TODAY'S VISIT Citizen [place] #Melissa Live We discuss the hemorrhoids, and she would like a trial of the proctosol cream. She is complaining of upper abdominal pain and nausea and states ?I want to check my pancreas. ? She had an abdominal MRI in 2023 that showed a completely normal pancreas and she is status post cholecystectomy. Onset about 2 mos ago she will have pain about an hour after eating intermittently. She can not ID any type of food that precipitates the pain and it occurs about twice a week. She also has a lot of bloating, which happens all fo the time and is not necessarily r/t the pain. SHe had an EGD in 2013 showing a great deal of bile in her stomach, so I think this may be bile gastritis. It may have been set off by her starting an MVI with iron, and she stopped this temporarily so the iron probably upset her stomach. SHe says the Viberzi gave her quality of life and she only has diarrhea about twice a month. Will get EGD, start carafate 1 g qnoon (she could not swallow it, discusssed crushing etc and she gabo greeable), get labs and lipase amylase to monitor Viberzi/pancreastits. Next availale [facility] Medical History Back pain Cough Vaginal discharge Pre-op examination Preop pulmonary/respiratory exam Well woman exam 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 GERD (gastroesophageal reflux disease) Anxiety Depression Fibromyalgia Surgical History Hx of surgical procedure (~02/19/24) Hx of elbow surgery History of colonoscopy (03/09/24) History of bilateral tubal ligation History of cholecystectomy Family History Family/Other Cancer Social History Household Members: None Housing: Apartment Are you a primary health care analyst to a significant other at home: No Do you presently have visiting nurse or other home services: Yes (TALENT ENGINEER 1 hour/day) Alcohol intake: current Alcohol intake frequency: does not drink Patient Tobacco Use Status: Never used Tobacco Advance Directives Date on File: 01/19/20 Current occupational status: disabled Sexual orientation: Straight/Heterosexual Gender identity: Female Female Reproductive History Menstrual Age of Menarche: 7 Review of Systems Const Denies fatigue, Denies fever(s), Denies night sweats, Denies poor appetite and Denies weight loss Eyes Details: glasses Reports requires corrective lenses ENT Reports Normal hearing present, Denies dental pain, Denies dysphagia, Denies hearing loss, Denies mouth pain, Denies odynophagia, Denies throat swelling, Denies tongue swelling and Reports other (Dentition adequate) Card Reports no additional complaints Resp Reports no additional complaints GI Details: Reports abdominal pain, Denies melena, Denies bloating, Denies hematochezia, Denies constipation, Denies GI cramping, Denies dysphagia, Denies excessive flatus, Denies early satiety, Reports dyspepsia, Reports heartburn, Reports diarrhea, Denies nausea, Denies odynophagia, Denies vomiting and Denies hematemesis Skin/Breast Denies pruritus, Denies lesions, Denies rash and Denies jaundice Neuro Reports Normal hearing present and Denies Abnormal speech present Endo Denies fatigue Aller/Immun Denies throat swelling and Denies tongue swelling Physical Exam Vital Signs: Last Vital Signs Pulse 61 07/27/24 12:06 BP 148/77 H 07/27/24 12:06 BMI result Body Mass Index 27.2 Const General: cooperative, no acute distress, well developed and well groomed Nutritional Appearance: average body habitus and well nourished Orientation/consciousness: oriented to person, oriented to place and oriented to time Limitations: No language barrier HEENT Head: Yes normocephalic and Yes atraumatic Eyes General: appearance normal, both eyes and all related structures Pupils: Equal, round and reactive pupils present Neck Neck: Yes normal visual inspection and Yes no lymphadenopathy Thyroid: Thyroid normal Resp Effort & Inspection: normal respiratory effort and able to speak in complete sentences Auscultation: clear to auscultation bilaterally Cardio Rate: regular rate Rhythm: regular rhythm Heart sounds: Normal, physiologic split S2 sound present Peripheral pulses: radial pulses present and posterior tibial pulses present GI Inspection: Yes distended, No Abdominal panniculus present and Yes obesity Palpation (GI): Soft to palpation, Tenderness to palpation present (GI) in the epigastrum, no guarding, not rigid and No hepatosplenomegaly present Percussion: Yes normal to percussion Auscultation: normal bowel sounds Rectal Exam - Female: deferred Skin General skin exam: no rashes or lesions noted, turgor normal, skin not dry, no jaundice, No spider nevi and no striae Rashes: no rashes Nails: normal Neuro General: oriented to person, oriented to place and oriented to time Cranial nerves: Yes Equal, round and reactive pupils present and Yes Normal hearing present Speech: No Abnormal speech present Extrem General: Yes normal to inspection, No clubbing, No cyanosis and No edema Psych Appearance: grossly normal and well kempt Mental Status: mental status grossly normal Speech and movement: Normal speech and movement present Affect: normal affect Attitude: cooperative Thought process: Normal thought process present and not confabulating Thought content: Normal thought content present Insight: Limited insight present (Psych) Judgement: Limited judgement present (Psych) Assessment & Plan Assessment & Plan (1) Bile reflux gastritis: Code(s): K29.60 - Other gastritis without bleeding Category: Medical (2) GERD (gastroesophageal reflux disease): Code(s): K21.9 - Gastro-esophageal reflux disease without esophagitis Category: Medical (3) Irritable bowel syndrome with diarrhea: Code(s): K58.0 - Irritable bowel syndrome with diarrhea Category: Medical (4) Upper abdominal pain: Code(s): R10.10 - Upper abdominal pain, unspecified Category: Medical Plan Citizen [place] #Melissa Live We discuss the hemorrhoids, and she would like a trial of the proctosol cream. She is complaining of upper abdominal pain and nausea and states ?I want to michelle ck my pancreas. ? She had an abdominal MRI in 2023 that showed a completely normal pancreas and she is status post cholecystectomy. Onset about 2 mos ago she will have pain about an hour after eating intermittently. She can not ID any type of food that precipitates the pain and it occurs about twice a week. She also has a lot of bloating, which happens all fo the time and is not necessarily r/t the pain. SHe had an EGD in 2013 showing a great deal of bile in her stomach, so I think this may be bile gastritis. It may have been set off by her starting an MVI with iron, and she stopped this temporarily so the iron probably upset her stomach. SHe says the Viberzi gave her quality of life and she only has diarrhea about twice a month. Will get EGD, start carafate 1 g qnoon (she could not swallow it, discusssed crushing etc and she gabo greeable), get labs and lipase amylase to monitor Viberzi/pancreastits. Next availale Orders: Orders Comprehensive Met. Panel Today R10.10 - Upper abdominal pain, unspecified Lipase Today R10.10 - Upper abdominal pain, unspecified Amylase Today R10.10 - Upper abdominal pain, unspecified EGD - GI Use Only Today R10.10 - Upper abdominal pain, unspecified Medications: New sucralfate (Carafate) 1 g PO QNOON 30 tabs 6RF K29.60 - Other gastritis without bleeding Refilled eluxadoline (Viberzi) must administer with a meal/food 100 mg PO BID 60 tabs 5RF K58.0 - Irritable bowel syndrome with diarrhea dexlansoprazole (Dexilant) 60 mg PO DAILY 30 caps 6RF 30 days K21.9 - Gastro- esophageal reflux disease without esophagitis simethicone 180 mg PO QID 120 caps 6RF dicyclomine 20 mg PO QID 120 tabs 6RF 30 days K58.9 - Irritable bowel syndrome, unspecified Coding Level of Care Code Est Pt Level 3 (46153) Diagnoses Bile reflux gastritis K29.60 GERD (gastroesophageal reflux disease) K21.9 Irritable bowel syndrome with diarrhea K58.0 Upper abdominal pain R10.10
[2024-07-27 12:06] VITALS: BP 148/77; PULSE 61; BMI 27.2
--- OUTSIDE RECORDS SUMMARY | 2024-07-27 14:43 | XMS_ITS | Data Portability ---
Author Organization [place] [facility], Allergy Address [address] [place] [address] Care Team Providers Care Station Installer And Repairer Name Role Phone SOPHIE KIM Primary Care [...] AUDITORY CANAL, W/WO CONTRAST 2023 024 [facility] ([facility]), [address], [place], [address], 12:39:15 Medication Orders None recorded. Patient TargetsNo [...] contr ast No observ ation record ed. [email or web address] [facility] [address] [facility] [place], [address], 09/24/2023 15:40:17 12/03/19 24 09/04/2023 imagi ng/di agnos tic resul t No observ ation record ed. [email or web address] Not Available 20:41:55 Result Notes None recorded. 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, including 'globus hystericus '; Note: Date Diagnosed: 03/04/2018 3:21 PM (F45.8) Not Available [facility] 4 03:26:41 Gastroeso phageal reflux disease without esophagit is 941806347 Active 2017 Gastro-eso phageal reflux disease without esophagiti s; Note: Date Diagnosed: 03/04/2018 3:24 PM (K21.9) Not Available [facility] 4 03:26:41 Dysphagia 29232446 Active 2017 Other dysphagia; Note: Date Diagnosed: 03/04/2018 3:21 PM (R13.19) Not Available [facility] 4 03:26:41 Sensorine ural hearing loss of bilateral ears 014640549 Active 2023 MAYO TADEO, YASMIN [address] [facility],[place] [address], [place], [address] , [place] - [facility] 4 11:10:51 Vertigo 763383679 Active 2023 DIPTI BLOOD PA-C [address] [facility], [place], [address] , [place] [facility] 4 11:46:48 Migrainou s vertigo 582185660 Active 2023 DIPTI BLOOD PA-C 100 [facility] 100, [place], [address] , [place] - [facility] 4 15:38:23 Bilateral earache 662618889 Active 2023 DIPTI BLOOD PA-C [address] [place],[facility] 100, [facility] [place], [address] , [facility] 11:22:43 Temporoma ndibular joint disorder 19792605 Active 2023 DIPTI BLOOD PA-C [address],[facility] 100, [facility] [place], [address] , [facility] - [facility] [place] 11:23:02 Problem Notes None recorded. Procedures Surgical History Date Name Laterality Status Provider Name and Address Organization Details Recorded Time Comp Audio with Tymps & Reflexes (46009 & 28962) completed YASMIN STEVENSON [address] [facility] [place],[facility] 100, [place], [address], [facility] - [facility] 09/04/2023 11:10:42 Imaging Results Imaging Date Name Status LastModified by Organiz ation Details LastModified Time 09/22/2023 MRI, brain + internal auditory canal, w/wo contrast completed [email or web address] [facility] [address] [place], [address], 09/24/2023 15:40:17 09/04/2023 imaging/diagn ostic result completed [...] mcg tablet 2016 active Medicati on ID: [id number] D uration Value: 30 Brand Name: levothyr [...] Note [id number] DIPTI BLOOD PA-C [facility] [address] [address] 09/04/2023 10:26:40 09/04/2023 12:03:25 Sensorineural hearing loss of bilateral ears 701271272 H90.3 Audiologic al evaluation results:Ri ght ear:{{Norm [...] 1kHz, AD, and contra 1kHz, . Vertigo 355957139 R42 Associated pre-syncop e and arm weakness Migrainous vertigo 17181 4007 H81.8X9 [id number] COLE SANTORO MD [facility] [address] [address] 11/26/2023 10:49:19 11/26/2023 11:27:05 Bilateral earache 801978248 H92.03 Temporoman dibular joint disorder 34818196 M26.609 Migrainous vertigo 60812 4007 H81.8X9 Health Concerns Section Related Observation LastModified by Organization Detai ls LastModified Time None Recorded Concern Status LastModified by Organization Details LastModified Time None Recorded Advance Directives Directive None Recorded Payers Encounter Date Sequence Insurance Name Policy Number Policy Abraham Covered Member ID Abraham Member ID Guarantor Name 09/04/2023 1 [place] [facility] Steffanie Benjamin James [id number] Steffanie Benjamin 11/26/2023 1 [place] [facility] Steffanie Benjamin James [id number] Steffanie Benjamin Notes Date Note Type Note [...] sugar in the diet. DIPTI BLOOD PA-C [address] [place] [address], [address], [facility] - [facility] 09/04/2023 15:39:50 11/26/2023 text/html 58 year [...] jaw pops and cracks. COLE PICKENS MD [address] [place] [address], [place], [address], [place] - [facility] 11/26/2023 13:04:47 OBGyn Episode No OBEpisode recorded.
--- OUTSIDE RECORDS SUMMARY | 2024-07-27 14:43 | XMS_ITS | Clinical Summary ---
Author Organization [facility] Address [address] [place] [address] Phone Care Team Providers Care 3D Modeler Name Role Phone Anthony Blevins MD Primary [...] AM EDT Office Visit Orthopedic Surgery - [address] [place] [address] Jesus Alberto Welch MD Arthritis [...] topic Insurance [place] - [place] Care Teams 3D Modeler Relationship Specialty Start Date End Date Anthony Blevins MD [address] [place] [phone] PCP - General 01/12/24
== END 2024-07-27 12:57 | disposition home or self-care (01) ==
LOC: HO.HGI 11:55
PROVIDERS: PCP Internal Medicine; Visit Provider Nurse Practitioner
DX: K29.60 Other gastritis without bleeding (principal); K21.9 Gastro-esophageal reflux disease without esophagitis; K58.0 Irritable bowel syndrome with diarrhea; R10.10 Upper abdominal pain, unspecified
CPT/HCPCS: 99213

== ENCOUNTER → 2024-07-27 11:55 | Outpatient (BNVA) | payer MEDICAID, SELFPAY | PROVIDERS: PCP Internal Medicine; Visit Provider Nurse Practitioner | DX: K21.9 Gastro-esophageal reflux disease without esophagitis (principal); K58.0 Irritable bowel syndrome with diarrhea; K29.60 Other gastritis without bleeding; R11.0 Nausea; R10.10 Upper abdominal pain, unspecified | CPT/HCPCS: 99212 ==

== ENCOUNTER 2024-09-15 12:02 | Outpatient (REF) | payer MEDICAID, SELFPAY ==
--- OUTSIDE RECORDS SUMMARY | 2024-09-15 12:42 | XMS_ITS | Data Portability ---
Author Organization [place] - [facility], Allergy Address [address] [place] [address] Care Team Providers Care Still Operator Brandy Name Role Phone SOPHIE KIM Primary Care [...] Organization Details Last Modified Time Details Appointments Establish ed 15 2024 02:15P M MARII MARIE PA-C Not available Not available Not available Lab None recorded. Referral None recorded. Procedures None recorded. Surgeries None recorded. Imaging MRI, brain + internal auditory canal, w/wo contrast - MRI, BRAIN + INTERNAL AUDITORY CANAL, W/WO CONTRAST 2023 024 [facility] ([facility]), [address], [place], [address], 09/23/2023 12:39:15 Medication Orders None recorded. Patient TargetsNo [...] contr ast No observ ation record ed. [email or web address] [facility] [address] [facility] [place], [address], 09/24/2023 15:40:17 12/03/19 24 09/04/2023 imagi ng/di agnos tic resul t No observ ation record ed. [email or web address] Not Available 20:41:55 Result Notes None recorded. Problems Name Problem SNOMED Code Status Onset Date Resolution Date Notes Provider Name and Address Organization Details Recorded Time Somatofor m disorder 90380975 Active 2017 Psychogeni c dysphagia, including 'globus hystericus '; Note: Date Diagnosed: 03/04/2018 3:21 PM (F45.8) Not Available [facility] 4 03:26:41 Gastroeso phageal reflux disease without esophagit is 836577546 Active 2017 Gastro-eso phageal reflux disease without esophagiti s; Note: Date Diagnosed: 03/04/2018 3:24 PM (K21.9) Not Available [facility] 4 03:26:41 Dysphagia 01571602 Active 2017 Other dysphagia; Note: Date Diagnosed: 03/04/2018 3:21 PM (R13.19) Not Available [facility] 4 03:26:41 Sensorine ural hearing loss of bilateral ears 211807868 Active 2023 MAYO TADEO, YASMIN 100 [facility],[place] [address], [place], [address] , [facility] - [facility] 4 11:10:51 Vertigo 631369352 Active 2023 DIPTI BLOOD PA-C 100 [facility],[place] [address], [place], [address] , [place] [facility] [place] 4 11:46:48 Migrainou s vertigo 855551185 Active 2023 DIPTI BLOOD PA-C [address] [facility],[place] [address], [place], [address] , [place] - [facility] [place] 4 15:38:23 Bilateral earache 038246189 Active 2023 DIPTI BLOOD PA-C [address] [facility],[place] [address], [facility] [place], [address] , [facility] - [facility] [place] 4 11:22:43 Temporoma ndibular joint disorder 04471507 Active 2023 DIPTI BLOOD PA-C [address] [facility],[place] [address], [facility], [address] , [facility] - [facility] [place] 4 11:23:02 Problem Notes None recorded. Procedures Surgical History Date Name Laterality Status Provider Name and Address Organization Details Recorded Time Comp Audio with Tymps & Reflexes - 10503 & 33294 completed YASMIN STEVENSON [address] [facility],[place] [address], [place], [address], [place] - [facility] 09/04/2023 11:10:42 Imaging Results None recorded. Procedure Notes None recorded. Medical Equipment None [...] mcg tablet 2016 active Medicati on ID: [id number] D uration Value: 30 Brand Name: levothyr [...] Reported. Medical History Condition Response Anemia Y Migraines Y Fibromyalgia Y Anxiety Y Thyroid Problems Y Depression Y Gynecological HistoryNo gynecological history recorded. Obstetrics History GPAL:G 0 P 0 0 0 0 Past Encounters Encounter ID Performer Location Encounter Start Date Encounter Closed Date Diagnosis/Indication Diagnosis SNOMED-CT Code Diagnosis ICD10 Code Diagnosis Note [id number] DIPTI BLOOD PA-C [facility] [address] [address] 09/04/2023 10:26:40 09/04/2023 12:03:25 Sensorineural hearing loss of bilateral ears 965705186 H90.3 Audiologic al evaluation results:Ri ght ear:Normal auditory thresholds Normal sloping at Normal sloping at 3kHz to a mild to moderate SNHL with excellent speech discrimina tion.Left ear:Normal auditory thresholds Normal sloping at Normal sloping at 3kHz to a mild to moderate SNHL with excellent speech discrimina tion. Tympanomet ry:Right Ear:Type ALeft Ear:Type B Acoustic Reflexes:M ostly absent reflexes, AU. Present at 2kHz contra and ipsi, AU. Also present was ipsi 1kHz, AD, and contra 1kHz, . Vertigo 121963072 R42 Associated pre-syncop e and arm weakness Migrainous vertigo 31347 4007 H81.8X9 [id number] DIPTI BLOOD PA-C [facility] [address] [address] 11/26/2023 10:49:19 11/26/2023 11:27:05 Bilateral earache 884091114 H92.03 Temporoman dibular joint disorder 81396186 M26.609 Migrainous vertigo 35883 4007 H81.8X9 Health Concerns Section Related Observation LastModified by Organization Detai ls LastModified Time None Recorded Concern Status LastModified by Organization Details LastModified Time None Recorded Advance Directives Directive None Recorded Payers Insurance Date Sequence Insurance Name Policy Number Policy Abraham Covered Member ID Abraham Member ID Guarantor Name 11/26/2023 1 [place]: [facility] Steffanie Benjamin Jacob [id number] Steffanie Benjamin Notes Date Note Type Note [...] sugar in the diet. DIPTI BLOOD PA-C [address] [facility] 100, [place], [address], [facility] - [facility] [place] 09/04/2023 15:39:50 11/26/2023 text/html 58 year old [...] jaw pops and cracks. COLE PICKENS MD 100 [facility] 100, [place], [address], [facility] - [facility] 11/26/2023 13:04:47 OBGyn Episode No OBEpisode recorded.
[2024-09-15 14:26] LABS: Alanine Aminotransferase 39 U/L (0-31); Albumin Level 4.6 g/dL (3.5-5.0); Alkaline Phosphatase 94 U/L (39-117); Amylase 52 U/L (28-100); Anion Gap 11 (12-20); Aspartate Amino Transferase 28 U/L (5-31); Bilirubin Total 0.3 mg/dL (0.0-1.0); Blood Urea Nitrogen 12 mg/dL (9-16); Calcium 10.1 mg/dL (8.4-10.2); Carbon Dioxide 26 mmol/L (22-29); Chloride 108 mmol/L (96-108); Estimated Glomerular Filt Rate > 60; Glucose Random 90 mg/dL (60-115); Lipase 20 U/L (8-78); Potassium 4.5 mmol/L (3.3-5.1); Sodium 140 mmol/L (135-145); Total Protein 7.5 g/dL (6.5-8.0)
== END 2024-09-15 12:03 | disposition home or self-care (01) ==
LOC: HO.LAB 12:02
PROVIDERS: PCP Internal Medicine; Visit Provider Nurse Practitioner
DX: R10.10 Upper abdominal pain, unspecified (principal)
CPT/HCPCS: 36415; 80053; 82150; 83690

== ENCOUNTER 2024-10-19 14:32 | Outpatient (REF) | payer MEDICAID, SELFPAY ==
--- OUTSIDE RECORDS SUMMARY | 2024-10-19 15:24 | XMS_ITS | Data Portability ---
Author Organization [place] - [facility], Allergy Address [address] [address] Care Team Providers Care Rail Signal Designer Name Role Phone SOPHIE KIM Primary Care [...] also be considered. Not available 11/26/2023 13:02:01 09/22/2024 09/22/2024 59yo female with TMJ and migrainous vertigo presents for reevaluation of right-sided periauricular pain, primarily anterior. She reports hearing and tinnitus are stable. Otologic exam is unremarkable. Physical exam reveals no identifiable source of otalgia involving the auricle, external auditory canal, or tympanic membrane. Examination was positive for right-sided tenderness of the jaw joint and andrea-TMJ musculature. No mass, swelling, or skin changes are appreciated. The patient's auricular discomfort is most likely consistent with intermittent inflammation of the jaw joint or spasm of the surrounding musculature. Reviewed TMJ supportive measures. I offered fiberoptic laryngoscopy to rule out pharyngeal etiology, but patient declined. She will continue [id number] anti-inflammator ies as needed. Recommend considering medical-grade mouth guard through their dentist if symptoms persist despite supportive management. [email or web address] Not available 09/22/2024 16:31:52 Plan of Treatment Reminders Order Date Submit Date Provider Last Modified By Organization Details Last Modified Time Details Appointments Hearing Test 2024 11:00A M Hearing Test Not available Not available Not available Establish ed 15 2024 11:30A M MARII MARIE PA-C Not available Not available Not available Lab None recorded. Referral None recorded. Procedures None recorded. Surgeries None recorded. Imaging MRI, brain + internal auditory canal, w/wo contrast - MRI, BRAIN + INTERNAL AUDITORY CANAL, W/WO CONTRAST 2023 024 [facility] ([facility]), [address] [facility], [place], [address], 09/23/2023 12:39:15 Medication Orders None recorded. Patient [...] contr ast No observ ation record ed. [email or web address] [facility] [address] [place], [address], 09/24/2023 15:40:17 12/03/19 24 09/04/2023 imagi ng/di agnos tic resul t No observ ation record ed. [email or web address] Not Available 20:41:55 Result Notes None recorded. 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, including 'globus hystericus '; Note: Date Diagnosed: 03/04/2018 3:21 PM (F45.8) Not Available [facility] 4 03:26:41 Gastroeso phageal reflux disease without esophagit is 818094141 Active 2017 Gastro-eso phageal reflux disease without esophagiti s; Note: Date Diagnosed: 03/04/2018 3:24 PM (K21.9) Not Available [facility] 4 03:26:41 Dysphagia 82235246 Active 2017 Other dysphagia; Note: Date Diagnosed: 03/04/2018 3:21 PM (R13.19) Not Available [facility] 4 03:26:41 Sensorine ural hearing loss of bilateral ears 299932635 Active 2023 MAYO TADEO, AUD [address], [place], [address] , [place] - [facility] 4 11:10:51 Vertigo 299823296 Active 2023 KRISTIAN SOLORIO-C [address], [place], [address] , [place] - [facility] 4 11:46:48 Migrainou s vertigo 356169351 Active 2023 DIPTI BLOOD PA-C [address], [place], [address] , [place] - [facility] 4 15:38:23 Bilateral earache 932286801 Active 2023 KRISTIAN SOLORIO-C [address], [place], [address] , [place] - [facility] 4 11:22:43 Temporoma ndibular joint disorder 31193189 Active 2023 KRISTIAN SOLORIO-C [address], [place], [address] , [place] - [facility] 4 11:23:02 Problem Notes None recorded. Procedures Surgical History Date Name Laterality Status Provider Name and Address Organization Details Recorded Time Comp Audio with Tymps & Reflexes - 40017 & 43898 completed MAYO TADEO, AUD [address], [place], [address], [facility] - [facility] 09/04/2023 11:10:42 Imaging Results None recorded. Procedure Notes None recorded. Medical Equipment None Reported. Allergies No known drug allergies Medications Name Sig Start Date Stop Date Status Note LastModified by Organization Details LastModified Time multivita min tablet TAKE 1 TABLET BY MOUTH DAILY active Not Available Not Available No t Available tolterodi ne ER 2 mg capsule,e xtended release 24 hr TAKE ONE CAPSULE BY MOUTH ONCE A DAY active Not Available Not Available No t Available cyclobenz aprine 10 mg tablet TAKE 1 TABLET BY MOUTH THREE TIMES DAILY NEEDED FOR MUSCLE SPASM active Not Available Not Available No t [...] mg tablet TAKE 1 TABLET BY MOUTH DAILY AT BEDTIME active Not Available Not Available No t Available simethico ne 180 mg capsule TAKE 1 CAPSULE BY MOUTH FOUR TIMES DAILY active Not Available Not Available No t Available fluconazo le 150 mg tablet TAKE 1 TABLET ORALLY. IF SYMPTOMS NOT IMPROVE AFTER 48 HOURS TAKE SECOND TABLET 11/25 completed Not Available Not Available Not Available sucralfat e 1 gram tablet TAKE 1 TABLET BY MOUTH EVERY DAY AT NOON active Not Available Not Available No t Available clonazepa m 0.5 mg tablet TAKE 1/2 TO 1 TABLET BY MOUTH DAILY NEEDED active Not Available Not Available No t Available clindamyc in HCl 150 mg capsule TAKE 1 CAPSULE BY MOUTH FOUR TIMES DAILY 11/25 completed Not Available Not Available Not Available sumatript an 50 mg tablet TAKE 1 TABLET BY MOUTH ONCE DAILY NEEDED. WAIT AT LEAST 2 HOURS BETWEEN DOSES active Not Available Not Available No t Available acetamino phen 500 mg tablet TAKE 2 CAPLETS BY MOUTH EVERY 8 HOURS NEEDED FOR PAIN active Not Available Not Available No t Available acetamino phen ER 650 mg tablet,ex tended release active Not Available Not Available Not Available levothyro xine 75 mcg tablet 11/25 completed Not Available Not Available Not Available levothyro xine 100 mcg tablet 2016 active Medicati on ID: [id number] D uration Value: 30 Brand Name: levothyr oxine Se nd Method: E-Prescr ibed Sub s Allowed: subs OK Speci al Instruct ion: TK 1 T PO D FRIDAY THRU FRIDAY NOTHING ON FRIDAY M tin [employer] Name: levothyr oxine Not Available Not Available [...] layed release TAKE 2 TABLETS BY MOUTH THE DAY BEFORE COLONOSC OPY AT 12PM AND 2 TABLETS AT 5PM WITH WATER active Not Available Not Available No t Available propranol ol 20 mg tablet TAKE 1 TABLET BY MOUTH TWICE DAILY active Not Available Not Available No t Available fluticaso ne propionat e 50 mcg/actua tion nasal spray,gnee pension SHAKE LIQUID AND USE 1 SPRAY IN EACH NOSTRIL EVERY DAY active Not Available Not Available No t Available loratadin e 10 mg tablet TAKE 1 TABLET BY MOUTH EVERY MORNING active Not Available Not Available No t Available naproxen 500 mg tablet TAKE 1 TABLET BY MOUTH TWICE DAILY WITH MEALS active Not Available Not Available No t Available Ventolin HFA 90 mcg/actua tion aerosol inhaler INHALE 2 PUFFS BY MOUTH EVERY 4-6 HOURS NEEDED FOR WHEEZING active Not Available Not Available No t Available pregabali n 100 mg capsule TAKE 1 CAPSULE BY MOUTH TWICE DAILY active Not Available Not Available No t Available pregabali n 150 mg capsule TAKE 1 CAPSULE BY MOUTH TWICE DAILY active Not Available [...] inhalatio n INHALE 1 PUFF BY MOUTH DAILY active Not Available Not Available No t Available Viberzi 100 mg tablet TAKE 1 TABLET BY MOUTH TWICE DAILY active Not Available Not Available No t Available Omron Blood Pressure Monitor-3 Series kit USE TO CHECK BLOOD PRESSURE TWICE DAILY active Not Available Not Available No t Available Vitals None Recorded Social History None recorded. Functional Status None recorded. Mental Status None recorded. Family History Nothing Reported. Medical History Condition Response Anxiety Y Migraines Y Thyroid Problems Y Depression Y Anemia Y Fibromyalgia Y Gynecological HistoryNo gynecological history recorded. Obstetrics History GPAL:G 0 P 0 0 0 0 Past Encounters Encounter ID Performer Location Encounter Start Date Encounter Closed Date Diagnosis/Indication Diagnosis SNOMED-CT Code Diagnosis ICD10 Code Diagnosis Note [id number] DIPTI BLOOD PA-C [facility] [address] [address] 09/04/2023 10:26:40 09/04/2023 12:03:25 Sensorineural hearing loss of bilateral ears 446722821 H90.3 Audiologic al evaluation results:Ri ght ear:Normal sloping at 3kHz to a mild to moderate SNHL with excellent speech discrimina tion.Left ear:Normal sloping at 3kHz to a mild to moderate SNHL with excellent speech discrimina tion. Tympanomet ry:Right Ear:Type ALeft Ear:Type B Acoustic Reflexes:M ostly absent reflexes, AU. Present at 2kHz contra and ipsi, AU. Also present was ipsi 1kHz, AD, and contra 1kHz, . Vertigo 800393832 R42 Associated pre-syncop e and arm weakness Migrainous vertigo 71460 4007 H81.8X9 [id number] DIPTI BLOOD PA-C [facility] [address] [address] 11/26/2023 10:49:19 11/26/2023 11:27:05 Bilateral earache 713290111 H92.03 Temporoman dibular joint disorder 22809149 M26.609 Migrainous vertigo 13569 4007 H81.8X9 [id number] MARII MARIE PA-C [facility] [address] [address] 09/22/2024 13:50:12 09/22/2024 14:28:42 Bilateral earache 342639324 H92.03 Temporoman dibular joint disorder 40424864 M26.609 Health Concerns Section Related Observation LastModified by Organization Detai ls LastModified Time None Recorded Concern Status LastModified by Organization Details LastModified Time None Recorded Advance Directives Directive None Recorded Payers Insurance Date Sequence Insurance Name Policy Number Policy Abraham Covered Member ID Abraham Member ID Guarantor Name 09/22/2024 1 [place] [facility] Steffanie James [id number] Steffanie Benjamin Notes Date Note Type Note [...] in the diet. DIPTI BLOOD PA-C [address] [facility],[place] [address], [place], [address], [facility] - [facility] 09/04/2023 15:39:50 11/26/2023 text/html 58 year old [...] pops and cracks. COLE PICKENS MD [address] [facility],[address], [address], [facility] - [facility] 11/26/2023 13:04:47 09/22/2024 text/html 59yo female with TMJ and migrainous vertigo presents for reevaluation of right sided ear pain. She reports intermittent ear pain around, and particularly in front of, the ear with associated swelling. Denies throat involvement. Her hearing and tinnitus are stable. She does not wear hearing aids. She has a history of chronic migraine treated with daily sumatriptan. She is followed by a neurologist for this. No smoking history. COLE PICKENS MD [facility] [place],[address], [address], [facility] 09/23/2024 07:48:44 OBGyn Episode No OBEpisode recorded.
--- OUTSIDE RECORDS SUMMARY | 2024-10-19 15:24 | XMS_ITS | Encounter Summary ---
Author Organization [employer] Address [address] [facility] [address] [place] [address] Care Team Providers Care Fiberglass Luggage Molder Name Role Phone Anthony Moreno MD Primary Care Provide r Reason for Visit * Reason Onset Date Comments Call Back Request 07/08/2024 Encounter Details Date Type Department Care Team ([facility] Contact Info) Description 07/08/[address] [facility] MEDICINE [address], [place] [phone] Anthony Moreno MD [address] [place] [address] Call Back Request Social History Tobacco Use [...] to get done. Please return call to [phone] documented in this encounter Plan of Treatment Upcoming Encounters Date Type Department Care Team (Late st Contact Info) Description 01/06/2025 10:00 AM EDT Office Visit [facility] ADULT DENTAL [address] [place] [address] Ev, Yary [address] [place] [address] documented as of this encounter Visit Diagnoses Not on filedocumented in this encounter Additional Health Concerns Assessment Noted Time PHQ-9 Depression Total Score: 5 06/18/19 25 2:26 PM EST documented as of this encounter Care Teams Fiberglass Luggage Molder Relationship Specialty Start Date End Date Anthony Moreno MD [address] [place] [address] PCP - General Internal Medicine 03/07/14 documented as of this encounter
--- OUTSIDE RECORDS SUMMARY | 2024-10-19 15:24 | XMS_ITS | Clinical Summary ---
Author Organization [address] [facility] Address [address] [place] [address] Phone Care Team Providers Care Fish Protector Name Role Phone Anthony Blevins MD Primary [...] mouth 1 (one) time each day. Active Surgical History Surgery Date Site/Laterality Comments ULNAR [...] Influencers of Health Screening 01/31/2024 Influenza Vaccine (#1) 2024 Depression Screening 06/17/2025 06/17/2024 Cervical Cancer [...] topic Insurance MEDICA[place] - [place] Care Teams Fish Protector Relationship Specialty Start Date End Date Anthony Blevins MD [address] [place] [phone] PCP - General 01/12/24
== END 2024-10-19 14:33 | disposition home or self-care (01) ==
LOC: HO.HHCL 14:32
PROVIDERS: PCP Internal Medicine; Visit Provider Internal Medicine
DX: E03.9 Hypothyroidism, unspecified (principal)
CPT/HCPCS: 36415; 84443

== ENCOUNTER 2024-10-28 14:46 | Outpatient (AMB) | payer MEDICAID, SELFPAY ==
--- NOTE | 2024-10-28 14:50 | A.OFFVIS_ITS ---
Vital Signs 10/28/24 14:53 Height 5 ft 1 in Weight 145 lb 8.081 oz BMI 27.5 BP 109/65 Blood Pressure Location Lt brachial Position Sitting Pulse 69 Intake Visit Reasons: upper abd pain, GERD, IBS-D r/s 09/22/24 Intake Note: Steffanie presents in the office as a follow up for Upper abdominal pains. CC: She states that she has had an issue with her medication - her medication is the Viberzi that they will not cover with insurance. She has still bad stomach pains. She still is having the diarrhea as well. Windows Server Engineer Required: Yes Windows Server Engineer Name: Vee [id number] Allergies cholestyramine Allergy (Intermediate, Verified 07/27/24 12:11) itching HPI HPI upper abd pain, GERD, IBS-D r/s 09/22/24: Details: Assessment & Plan (1) Bile reflux gastritis: Code(s): K29.60 - Other gastritis without bleeding Category: Medical (2) GERD (gastroesophageal reflux disease): Code(s): K21.9 - Gastro-esophageal reflux disease without esophagitis Category: Medical (3) Irritable bowel syndrome with diarrhea: Code(s): K58.0 - Irritable bowel syndrome with diarrhea Category: Medical (4) Upper abdominal pain: Code(s): R10.10 - Upper abdominal pain, unspecified Category: Medical Plan [place] #Melissa Live We discuss the hemorrhoids, and she would like a trial of the proctosol cream. She is complaining of upper abdominal pain and nausea and states ?I want to check my pancreas. ? She had an abdominal MRI in 2023 that showed a completely normal pancreas and she is status post cholecystectomy. Onset about 2 mos ago she will have pain about an hour after eating intermittently. She can not ID any type of food that precipitates the pain and it occurs about twice a week. She also has a lot of bloating, which happens all fo the time and is not necessarily r/t the pain. SHe had an EGD in 2013 showing a great deal of bile in her stomach, so I think this may be bile gastritis. It may have been set off by her starting an MVI with iron, and she stopped this temporarily so the iron probably upset her stomach. SHe says the Viberzi gave her quality of life and she only has diarrhea about twice a month. Will get EGD, start carafate 1 g qnoon (she could not swallow it, discussed crushing etc and she gabo greeable), get labs and lipase amylase to monitor Viberzi/pancreastits. Next availale Orders: Orders Comprehensive Met. Panel Today R10.10 - Upper abdominal pain, unspecified Lipase Today R10.10 - Upper abdominal pain, unspecified Amylase Today R10.10 - Upper abdominal pain, unspecified EGD - GI Use Only Today R10.10 - Upper abdominal pain, unspecified Medications: New sucralfate (Carafate) 1 g PO QNOON 30 tabs 6RF K29.60 - Other gastritis without bleeding Refilled eluxadoline (Viberzi) must administer with a meal/food 100 mg PO BID 60 tabs 5RF K58.0 - Irritable bowel syndrome with diarrhea dexlansoprazole (Dexilant) 60 mg PO DAILY 30 caps 6RF 30 days K21.9 - Gastro- esophageal reflux disease without esophagitis simethicone 180 mg PO QID 120 caps 6RF dicyclomine 20 mg PO QID 120 tabs 6RF 30 days K58.9 - Irritable bowel syndrome, unspecified LABS Laboratory Tests 09/15/24 10/19/24 12:12 14:36 Estimated GFR > 60 Total Bilirubin 0.3 AST 28 ALT 39 H Alkaline Phosphatase 94 Amylase 52 Lipase 20 TSH 0.80 EGD BIOPSY TODAYS VISIT Bolivian #[id number], Ana She is on Dexilant, dicyclomine, Viberzi, Carafate, and simethicone. She felt that she could not swallow the carafate, even if dissolved in juice as it was ethan. We can not use cholestyramine because she had itching r/t this. With this, I really have no more tools to address her bile gastritis. Maybe the EGD will be helpful. She has not been getting her Viberzi, it appears she may just need a PA renewal. ROV 3 mos. [facility] Medical History Back pain Cough Vaginal discharge Pre-op examination Preop pulmonary/respiratory exam Well woman exam 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 GERD (gastroesophageal reflux disease) Anxiety Depression Fibromyalgia Surgical History Hx of surgical procedure (~02/19/24) Hx of elbow surgery History of colonoscopy (03/09/24) History of bilateral tubal ligation History of cholecystectomy Family History Family/Other Cancer Social History Household Members: None Housing: Apartment Are you a primary care management coordinator to a significant other at home: No Do you presently have visiting nurse or other home services: Yes (RN PROCEDURES 1 hour/day) Alcohol intake: current Alcohol intake frequency: does not drink Patient Tobacco Use Status: Never used Tobacco Advance Directives Date on File: 01/19/20 Current occupational status: disabled Sexual orientation: Straight/Heterosexual Gender identity: Female Female Reproductive History Menstrual Age of Menarche: 7 Review of Systems Const Denies fatigue, Denies fever(s), Denies night sweats, Denies poor appetite and Denies weight loss Eyes Details: glasses Reports requires corrective lenses ENT Reports Normal hearing present, Denies dental pain, Denies dysphagia, Denies hearing loss, Denies mouth pain, Denies odynophagia, Denies throat swelling, Denies tongue swelling and Reports other (Dentition adequate) GI Details: Denies abdominal pain, Denies melena, Denies bloating, Denies hematochezia, Denies constipation, Denies GI cramping, Denies dysphagia, Denies excessive flatus, Denies early satiety, Denies heartburn, Denies diarrhea, Denies nausea, Denies odynophagia, Denies vomiting and Denies hematemesis Skin/Breast Denies pruritus, Denies lesions, Denies rash and Denies jaundice Neuro Reports Normal hearing present and Denies Abnormal speech present Endo Denies fatigue Aller/Immun Denies throat swelling and Denies tongue swelling Physical Exam Vital Signs: Last Vital Signs Pulse 69 10/28/24 14:53 BP 109/65 10/28/24 14:53 BMI result Body Mass Index 27.5 Const General: cooperative, no acute distress, well developed and well groomed Nutritional Appearance: well nourished, obese and overweight Orientation/consciousness: oriented to person, oriented to place and oriented to time Limitations: No language barrier, ambulation with cane, ambulation with walker and wheelchair HEENT Head: Yes normocephalic and Yes atraumatic Eyes General: appearance normal, both eyes and all related structures Pupils: Equal, round and reactive pupils present Neck Neck: Yes normal visual inspection and Yes no lymphadenopathy Thyroid: Thyroid normal Resp Effort & Inspection: normal respiratory effort and able to speak in complete sentences Auscultation: clear to auscultation bilaterally Cardio Rate: regular rate Rhythm: regular rhythm Heart sounds: Normal, physiologic split S2 sound present Peripheral pulses: radial pulses present and posterior tibial pulses present GI Inspection: No distended and No Abdominal panniculus present Palpation (GI): Soft to palpation, nontender, no guarding, not rigid, No hepatosplenomegaly present and Hepatosplenomegaly present Percussion: Yes normal to percussion Auscultation: normal bowel sounds Rectal Exam - Female: deferred Skin General skin exam: no rashes or lesions noted, turgor normal, skin not dry, no jaundice, No spider nevi and no striae Rashes: no rashes Nails: normal Neuro General: oriented to person, oriented to place and oriented to time Cranial nerves: Yes Equal, round and reactive pupils present and Yes Normal hearing present Speech: No Abnormal speech present Extrem General: Yes normal to inspection, No clubbing, No cyanosis and No edema Psych Thought process: Normal thought process present and not confabulating Thought content: Normal thought content present Insight: Good insight present (Psych) Judgement: Good judgement present (Psych) Assessment & Plan Assessment & Plan (1) GERD (gastroesophageal reflux disease): Code(s): K21.9 - Gastro-esophageal reflux disease without esophagitis Category: Medical (2) Bile reflux gastritis: Code(s): K29.60 - Other gastritis without bleeding Category: Medical (3) Irritable bowel syndrome with diarrhea: Code(s): K58.0 - Irritable bowel syndrome with diarrhea Category: Medical (4) Upper abdominal pain: Code(s): R10.10 - Upper abdominal pain, unspecified Category: Medical Plan [place] #[id number] She is on Dexilant, dicyclomine, Viberzi, Carafate, and simethicone. She felt that she could not swallow the carafate, even if dissolved in juice as it was ethan. We can not use cholestyramine because she had itching r/t this. With this, I really have no more tools to address her bile gastritis. Maybe the EGD will be helpful. She has not been getting her Viberzi, it appears she may just need a PA renewal. The only some lipase study show absolutely no signs of pancreatitis relative to the Viberzi as a contributing factor. ROV 3 mos. EGD BIOPSY Coding Level of Care Code Est Pt Level 3 (31007) Diagnoses GERD (gastroesophageal reflux disease) K21.9 Bile reflux gastritis K29.60 Irritable bowel syndrome with diarrhea K58.0 Upper abdominal pain R10.10
[2024-10-28 14:53] VITALS: BP 109/65; PULSE 69; BMI 27.5
== END 2024-10-28 15:18 | disposition home or self-care (01) ==
LOC: HO.HGI 14:47
PROVIDERS: PCP Internal Medicine; Visit Provider Nurse Practitioner
DX: K21.9 Gastro-esophageal reflux disease without esophagitis (principal); K29.60 Other gastritis without bleeding; K58.0 Irritable bowel syndrome with diarrhea; R10.10 Upper abdominal pain, unspecified
CPT/HCPCS: 99213

== ENCOUNTER → 2024-10-28 14:46 | Outpatient (BNVA) | payer MEDICAID, SELFPAY | PROVIDERS: PCP Internal Medicine; Visit Provider Nurse Practitioner | DX: K21.9 Gastro-esophageal reflux disease without esophagitis (principal); K58.0 Irritable bowel syndrome with diarrhea; K29.60 Other gastritis without bleeding; R10.10 Upper abdominal pain, unspecified | CPT/HCPCS: 99212 ==

== ENCOUNTER 2024-12-14 13:12 | Outpatient (AMB) | payer MEDICAID, SELFPAY ==
--- OUTSIDE RECORDS SUMMARY | 2024-11-26 08:29 | XMS_ITS | Continuity of Care Document ---
Author Organization [facility] Address [address] [place] [address] [address] [place] [address] Phone Care Team Providers Care Regional Clinical Director Name Role Phone Hardeep CALDERON, PIPER JACOBSON Robert Unavailable U navailable Advance Directives Directive Yes / No Effective Date File Name No Information Encounters Encounter Description Practice Location Reason(s) For Visit Diagnoses Date Provider Providers Copied on Encounter [facility], [address] [facility] [address], [place], [id number], [place] tel:[phone] [facility] No Information 5 Hardeep CALDERON, PIPER JACOBSON. Formerly [facility] [address], [id number] , [place]. tel:[phone] Family History Family Member Type Diagnosis Age At Onset No Information Payers Payer name Insurance type Covered republican ID Authoriza tion(s) No Information Social History Type Description Quantity Date Captured Comments Sex Female Smoking Status No Information Chief Complaint And Reason For Visit No Information Reason For Referral Reason For Referral No Information Plan Of Treatment Date Type Action Status Appointment Steffanie Benjamin (Requested Ref erral) BOOKED Appointment Steffanie Benjamin (Requested Ref erral) BOOKED History Of Present Illness Encounter Date Complaint History Of Prese nt Illness No Information Functional Status Date Functional Assessmen t No Information Instructions Date Instruction Additional Infor mation No Information Assessments Type Assessment Date No Information Patient Care Teams Name Effective Dates (start - stop) Status Members No Information
--- NOTE | 2024-12-14 13:27 | A.OFFVIS_ITS ---
Vital Signs 12/14/24 13:34 Height 5 ft 1 in Weight 169 lb 6 oz BMI 32.0 BP 120/76 Blood Pressure Location Lt brachial Position Sitting Pulse 68 Pulse Source Pulse Oximeter Pulse Oximetry (%) 97 Oxygen Delivery Method Room Air Intake Visit Reasons: ENP - Hypersomnolence Intake Note: Patient presents DISTRIBUTOR OF DIRECTORIES Hypersomnolence. Patient states hard time falling asleep, cant fall asleep until 1-2am. Apnea and snoring. No history of sleep studies. Railroad Car Repair Supervisor Required: Yes Railroad Car Repair Supervisor Language: Aluminum Pourer Services: Railroad Car Repair Supervisor Present Railroad Car Repair Supervisor Name: Emma [phone] Information Interpreted: non-clinical & clinical Accompanied by: Self / Same As Patient Allergies cholestyramine Allergy (Intermediate, Verified 12/14/24 13:39) itching HPI Comments Details: 59 year old Armenian speaking female presents for a sleep evaluation, she is referred to us by her PCP. She had recent eye surgery for cataracts bilaterally in August and October 2024 and her vision has improved. She is having a difficult time falling asleep, usually falls asleep at 3am. She has tinnitus bilaterally in her ears and is unable to induce sleep. She has multiple night time arousals due to snoring, and gasping for air. She has l. sided headache 2-3x per week, migrating pain 8/10 from front of the ethmoid sinus to the top of the head. She takes Sumatriptan and runs out of her medication. She has photophobia, denies phonophobia, but has nausea, denies vomiting, she has vertigo, easily inducible with flexion or lateral rotation of the head and then notices the room starts to spin. She feels off balance, leans to the l. side more than r. side due to gait disturbances. She denies blurry vision, scotomas and auras. Lying down in a dark room helps to improve her symptoms. RLS symptoms, she moves her feet all night and can tear holes into them. She has paresthesias, tingling, burning and radiating pain up to the calves. She feels a cold sensation down the legs and back of calves. Her memory is stable though she forgets tasks at time and gets distracted easily. Her mood fluctuates, and diet is stable. [facility] Medical History Tinnitus of both ears Chronic leukopenia BRBPR (bright red blood per rectum) Dental calculus Bleeding gums Urge incontinence of urine Acute migraine Hypothyroidism (acquired) Back pain Cough Vaginal discharge Pre-op examination Preop pulmonary/respiratory exam Well woman exam 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 GERD (gastroesophageal reflux disease) Anxiety Depression Fibromyalgia Surgical History Hx of surgical procedure (~02/19/24) Hx of elbow surgery History of colonoscopy (03/09/24) History of bilateral tubal ligation History of cholecystectomy Family History Family/Other Cancer Social History Household Members: None Housing: Apartment Are you a primary care worker to a significant other at home: No Do you presently have visiting nurse or other home services: Yes ([employer] 1 hour/day) Alcohol intake: current Alcohol intake frequency: does not drink Patient Tobacco Use Status: Never used Tobacco Advance Directives Date on File: 01/19/20 Current occupational status: disabled Sexual orientation: Straight/Heterosexual Gender identity: Female Female Reproductive History Menstrual Age of Menarche: 7 Physical Exam Vital Signs: Last Vital Signs Pulse 68 12/14/24 13:34 BP 120/76 12/14/24 13:34 Pulse Ox 97 12/14/24 13:34 Oxygen Delivery Method Room Air 12/14/24 13:34 BMI result Body Mass Index 32.0 Const General: cooperative, comfortable and no acute distress Nutritional Appearance: overweight Orientation/consciousness: patient oriented x3 HEENT Face and sinus: Yes face symmetric Teeth and gingiva: other ([place]pti score 3) Neck Other: pain with flexion and lateral movement of neck Resp Effort & Inspection: normal respiratory effort and able to speak in complete sentences Neuro General: patient oriented x3 and moves all extremities Cranial nerves: Yes Normal accommodation reflex present, Yes Normal facial strength present, Yes Midline tongue present and Yes Ability to bilaterally elevate shoulders present Cognition (Neuro): normal cognition Gait exam (Neuro): Normal gait present Motor exam (neuro): 5/5 motor strength present throughout and Normal motor mu scle tone present throughout Psych Appearance: grossly normal Mental Status: mental status grossly normal Thought process: Normal thought process present Thought content: Normal thought content present Results Reviewed Results Reviewed: MPRESSION: Straightening of the normal cervical lordosis. Mild to moderate degenerative disc disease at the C5-6 level as described. Assessment & Plan Assessment & Plan (1) Excessive daytime sleepiness: Code(s): G47.19 - Other hypersomnia Category: Medical (2) Chronic left-sided headaches: Code(s): R51.9 - Headache, unspecified; G89.29 - Other chronic pain Category: Medical (3) Vertigo of central origin: Comment: bppv/ Code(s): H81.4 - Vertigo of central origin Category: Medical Plan HST r/o kendell Excessive daytime fatigue Labs to r/o deficiencies. Headaches will increase dose of Sumatriptan to 100mg po prn headaches, may take one additional tablet if headche does not improve with in 2 hours of the first dose. Do not take more than 2 doses in a 24 hour period. May use a migraine cap for headaches. PT for Vertigo/ Central origin? BPPV? worse with lateral movement of neck. f/u in 3 months Orders: Orders PT Evaluation and Treatment Today H81.4 - Vertigo of central origin Complete Blood Count no Diff Today G47.19 - Other hypersomnia Methylmalonic Acid Today G47.19 - Other hypersomnia, G47.9 - Sleep disorder, unspecified, R53.83 - Other fatigue TSH reflex Free T4 Today G47.19 - Other hypersomnia Vitamin B1 Today G47.19 - Other hypersomnia Vitamin B6 Today G47.19 - Other hypersomnia RT home sleep study Today G47.19 - Other hypersomnia Comprehensive Met. Panel Today G47.19 - Other hypersomnia Ferritin Today G47.19 - Other hypersomnia Homocysteine Today G47.19 - Other hypersomnia, G47.9 - Sleep disorder, unspecified, R53.83 - Other fatigue Vitamin B12 and Folate Today G47.19 - Other hypersomnia Vitamin D 25-OH Total Today G47.19 - Other hypersomnia Medications: Changed From sumatriptan succinate May take one talbet at the onset of headache. If headache does not abort, may take one additional tablet 2 hours after the first dose. Do not exceed more than 4 doses in a 24 hour period. 50 mg PO Q2-4H G89.29 - Other chronic pain, R51.9 - Headache, unspecified To sumatriptan succinate May take one talbet at the onset of headache. If headache does not abort, may take one additional tablet 2 hours after the first dose. Do not exceed more than 4 doses in a 24 hour period. 50 mg PO ONCE 14 tabs 0RF Headache 30 days MDD 200mg G89.29 - Other chronic pain, R51.9 - Headache, unspecified Patient Instructions: Sleep Hygiene provided: set a scheduled bedtime and wake time to help regulate the circadian rhythm and balance the release of pituitary hormones. Sleep in a dark room, temperatures below 68 degrees, and no devices n bed. Limit caffeinated products 6 hours prior to bed, and limit fluids 2-4 hours prior to bed. Gentle night yoga, diffusing essential oils, and playing soft music can be relaxing. Coding Level of Care Code New Pt Level 4 (87213) Diagnoses Excessive daytime sleepiness G47.19 Chronic left-sided headaches R51.9; G89.29 Vertigo of central origin H81.4 Sleep Questionnaire Difficulty falling asleep: Yes Difficulty staying asleep?: Yes Number of arousals: 3 Snoring: Yes Witnessed apneas: No Gasping arousals: Yes Nocturia: No GERD: Yes Vivid dreams: No Acting out dreams: No Abnormal behavior in sleep: Yes Abnormal movements in sleep: Yes (punching and kicking in her dreams) Morning headaches: Yes Excessive daytime sleepiness: Yes Daytime naps: Yes Restless legs: Yes Hallucinations: No Sleep paralysis: No Drop attacks: No Sleep Study: No CPAP: No
[2024-12-14 13:34] VITALS: BP 120/76; PULSE 68; O2SAT 97; BMI 32.0
--- OUTSIDE RECORDS SUMMARY | 2024-12-14 14:31 | XMS_ITS | Encounter Summary ---
Author Organization [employer] Address [address] [facility] 7[address] [place] [address] Care Team Providers Care Dessert Cup Machine Feeder Name Role Phone Anthony Moreno MD Primary Care Provide r Reason for Visit * Reason Comments Med Refill Encounter Details Date Type Department Care Team ([facility] Contact Info) Description 05/14/2023 Refill [facility] MEDICINE [address] [place], [place] [phone] Anthony Moreno MD [address] [place], [place] [phone] Social History Tobacco Use Types Packs/Day Years [...] 01/06/2025 10:00 AM EDT Office Visit [facility] ADULT DENTAL [address] [place] [address] Ev, Yary [address] [place] [address] documented as of this encounter Visit Diagnoses Not on filedocumented in this encounter Care Teams Dessert Cup Machine Feeder Relationship Specialty Start Date End Date Anthony Moreno MD [address] [place] [address] PCP - General Internal Medicine 03/07/14 documented as of this encounter
--- OUTSIDE RECORDS SUMMARY | 2024-12-14 14:31 | XMS_ITS | Encounter Summary ---
Author Organization [employer] Address [address] [facility] [address] [place] [address] Care Team Providers Care Sound Tester Name Role Phone Anthony Moreno MD Primary Care Provide r Encounter Details Date Type Department Care Team ([facility] st Contact Info) Description 05/10/2024 Telephone [facility] MEDICINE [address] [place], [place] [phone] Anthony Moreno MD [address] [place], [place] [phone] Social History Tobacco Use Types Packs/Day Years [...] Description 01/06/2025 10:00 AM EDT Office Visit [facility] ADULT DENTAL [address] [place] [address] Ev, Yary [address] [place] [address] documented as of this encounter Visit Diagnoses Not on filedocumented in this encounter Additional Health Concerns Assessment Noted Time PHQ-9 Depression Total Score: 1 08/19/19 24 1:27 PM EDT documented as of this encounter Care Teams Sound Tester Relationship Specialty Start Date End Date Anthony Moreno MD [address] [place] [address] PCP - General Internal Medicine 03/07/14 documented as of this encounter
--- OUTSIDE RECORDS SUMMARY | 2024-12-14 14:31 | XMS_ITS | Encounter Summary ---
Author Organization [employer] Address [address] [facility] 7[address] [place] [address] Care Team Providers Care Surface Ship Usw Supervisor Name Role Phone Anthony Moreno MD Primary Care Provide r Reason for Visit * Reason Onset Date Comments Call Back Request 07/08/2024 Encounter Details Date Type Department Care Team ([facility] Contact Info) Description 07/08/2024 Telephone [facility] MEDICINE [address] [place], [place] [phone] Anthony Moreno MD [address] [place] [address] Call Back Request Social History Tobacco Use [...] to get done. Please return call to [phone] documented in this encounter Plan of Treatment Upcoming Encounters Date Type Department Care Team (Late st Contact Info) Description 01/06/2025 10:00 AM EDT Office Visit [facility] ADULT DENTAL [address] [place] [address] Ev, Yary [address] [place] [address] documented as of this encounter Visit Diagnoses Not on filedocumented in this encounter Additional Health Concerns Assessment Noted Time PHQ-9 Depression Total Score: 5 06/18/19 25 2:26 PM EST documented as of this encounter Care Teams Surface Ship Usw Supervisor Relationship Specialty Start Date End Date Anthony Moreno MD [address] [place] [address] PCP - General Internal Medicine 03/07/14 documented as of this encounter
--- OUTSIDE RECORDS SUMMARY | 2024-12-14 14:31 | XMS_ITS | Encounter Summary ---
Author Organization [facility] [facility] Address [address] [facility] 7t [place] [address] Care Team Providers Care Camera Supervisor Name Role Phone Anthony Moreno MD Primary Care Provide r Encounter Details Date Type Department Care Team (Late Contact Info) Description 03/29/2022 Abstract [facility] MEDICINE [address] [place], [place] [phone] Anthony Moreno MD [address] [place], [place] [phone] Social History Tobacco Use Types Packs/Day Years [...] Description 01/06/2025 10:00 AM EDT Office Visit [facility] ADULT DENTAL [address] [place], [place] [phone] Jeffery Carrenoaris [address] [place], [place] [phone] documented as of this encounter Procedures Procedure Name Priority Date/Time Associated Diagnosis Comments BI MAMMOGRAM DIAGNOSTIC BILATERAL Routine 03/11/2022 3:54 PM EST documented in this encounter Results * (ABNORMAL) BI Mammogram Diagnostic Bilateral (03/11/2022 3:54 PM EST) Anatomical Region Laterality Modality Breast Bilateral Mammography Narrative 03/11/2022 3:54 PM EST Birads 3 - recommended bilateral diagnostic at time of annual exam [place] 12 months [place] Historical Provider MD HARP BI PROCEDURES Final R esult documented in this encounter Visit Diagnoses Not on filedocumented in this encounter Care Teams Camera Supervisor Relationship Specialty Start Date End Date Anthony Moreno MD [address] [place] [id number] PCP - General Internal Medicine 03/07/14 documented as of this encounter
--- OUTSIDE RECORDS SUMMARY | 2024-12-14 14:31 | XMS_ITS | Encounter Summary ---
Author Organization [employer] [facility] Address [address] [facility] 7t [place] [address] Care Team Providers Care Surgical Technologist Name Role Phone Anhtony Moreno MD Primary Care Provide r Encounter Details Date Type Department Care Team (Latest Contact Info) Description 11/20/2020 Abstract [facility] CONVERSIONS Dental, Provider, DDS Social [...] Description 01/06/2025 10:00 AM EDT Office Visit [facility] ADULT DENTAL [address] [place] [address] Ev, Yary [address] [place] [address] documented as of this encounter Visit Diagnoses Not on filedocumented in this encounter Care Teams Surgical Technologist Relationship Specialty Start Date End Date Anthony Moreno MD [address] [place] [address] PCP - General Internal Medicine 03/07/14 documented as of this encounter
--- OUTSIDE RECORDS SUMMARY | 2024-12-14 14:31 | XMS_ITS | Encounter Summary ---
Author Organization [employer] Address [address] [facility] [address] [place] [address] Care Team Providers Care Forensic Artist Name Role Phone Anthony Moreno MD Primary Care Provide r Reason for Visit * Reason Onset Date Comments Clarification 03/18/2023 Encounter Details Date Type Department Care Team ([facility] Contact Info) Description 03/18/[address] [facility] MEDICINE [address] [place], [place] [phone] Anthony Moreno MD [address] [place], [place] [phone] Clarification Social History Tobacco Use Types Packs/Day [...] t he electric, gas, oil or water [employer] threatened to shut off services in your [...] Miscellaneous Notes * Telephone Encounter - Marcelle Fracisco Catalan - 03/18/2023 4:50 PM EST Tc from Donna From [facility] pharmacy calling in for a Clarification on script for: chlorhexidine (Peridex) 0.12 % solution. Donna states medication instruction does not specify how many times a day pt should take solution. Please contact Donna @ [phone] documented in this encounter Plan of Treatment Upcoming Encounters Date Type Department Care Team (Late st Contact Info) Description 01/06/2025 10:00 AM EDT Office Visit [facility] ADULT DENTAL [address] [place] [address] Ev, Yary [address] [place] [address] documented as of this encounter Visit Diagnoses Not on filedocumented in this encounter Care Teams Forensic Artist Relationship Specialty Start Date End Date Anthony Moreno MD [address] [place] [address] PCP - General Internal Medicine 03/07/14 documented as of this encounter
--- OUTSIDE RECORDS SUMMARY | 2024-12-14 14:31 | XMS_ITS | Clinical Summary ---
Author Organization [address] [facility] Address [address] [place] [address] Phone Care Team Providers Care Dye Reel Operator Helper Name Role Phone Anthony Blevins MD Primary [...] - Risk 60-74 years 1-dose series) 2023 Colorectal Cancer Screening: Colonoscopy 01/31/2024 HIV Screening 01/31/2024 Social Influencers of Health Screening 01/31/2024 Depression Screening 04/14/2024 COVID-19 Vaccine (3 - 2024-2 6 season) 2024 10/28/2020, 10/06/2020 Influenza Vaccine (#1) 2024 Cervical Cancer Screening: P ap Smear 03/17/2027 [...] topic Insurance MEDICAID - [place] Care Teams Dye Reel Operator Helper Relationship Specialty Start Date End Date Anthony Blevins MD [address] [place] [address] [place] [address] PCP - General 01/12/24
--- OUTSIDE RECORDS SUMMARY | 2024-12-14 14:31 | XMS_ITS | Clinical Summary ---
Author Organization [employer] Address [address] [facility] 7t [place] [address] Care Team Providers Care Motorcycle Tester Name Role Phone Anthony Moreno MD [...] NEEDED FOR SHORTNESS OF BREATH OR WHEEZING 02/15/20 Active hydrocortisone (Proctosol HC) 2.5 % rectal [...] HOURS NEEDED FOR DIARRHEA 01/04/20 23 Active Multiple Vitamin (multivitamin) tabletIndications :Peripheral polyneuropathy Take 1 tablet by mouth Once per day. 30 tablet 6 06/18/19 25 Active pregabalin (Lyrica) 100 MG capsuleIndication s:Peripheral polyneuropathy TAKE 1 CAPSULE BY MOUTH TWICE DAILY 60 capsule 1 06/18/19 25 Active loratadine (Claritin) 10 MG tabletIndications :Seasonal allergies TAKE 1 TABLET BY MOUTH EVERY MORNING 90 tablet 1 07/02/19 25 Active Blood Pressure kitIndications:El evated blood pressure reading without diagnosis of hypertension 1 each 2 times daily. 1 kit 08/06/19 25 026 Active levothyroxine (Synthroid, Levoxyl) 88 MCG tabletIndications :Acquired hypothyroidism TAKE 1 TABLET(88 MCG) BY MOUTH DAILY 90 tablet 1 09/10/19 25 Active meclizine (Antivert) 25 MG tabletIndications :Vertigo TAKE 1 TABLET(25 MG) BY MOUTH EACH DAY NEEDED FOR DIZZINESS 30 tablet 1 09/10/19 25 Active fluticasone (Flonase) 50 MCG/ACT nasal spray SHAKE LIQUID AND USE 1 SPRAY IN EACH NOSTRIL EVERY DAY 48 g 10/20/19 25 Active naproxen (Naprosyn) 500 MG tablet TAKE 1 TABLET BY MOUTH TWICE DAILY WITH MEALS 60 tablet 11/23/19 25 Active naproxen (Naprosyn) 500 MG tablet TAKE 1 TABLET BY MOUTH TWICE DAILY WITH MEALS 60 tablet 10/20/19 25 025 Discontinued Active Problems Problem Noted Date Diagnosed Date Arthralgia of bilateral temporomandibular joint 07/05/2024 Postmenopausal bleeding 06/17/2024 Assessment & Plan (06/17/2024 2:48 PM EST): Under the care of Dr gary Lovett PRODUCTION CLOTH CUTTER , last seen 05/2024 She is now [...] Overweight (BMI 25.0-29.9) 06/17/2024 Assessment & Plan (10/19/2024 2:19 PM EDT): Patient has been counseled and educated about diet and exercise. Personal goal of weight loss discussed Assessment & Plan (06/17/2024 2:51 PM EST): [...] synovitis on exam. She refused injection from [facility]. She had surgery on the right elbow for nerve pain and wants to he the left hand done. [facility] recommended to continue with Tylenol and over [...] of films were also faxed to patient's control electrician Assessment & Plan (01/06/2024 10:16 AM EDT): Evaluated by Rheumatology last seen 06/2023 recommended 1 year follow up Prior serology with negative SONYA, RF, and anti-CCP. Hand pain to the right is resolved, X-rays from 2022 showed osteoarthritis. No synovitis on exam. She refused injection from [facility]. She had surgery on the right elbow for nerve pain and wants to he the left hand done. [facility] recommended to continue with Tylenol and over [...] Xerostomia 01/05/2024 Hypersomnolence 06/17/2023 Assessment & Plan (10/19/2024 2:20 PM EDT): Referred to sleep medicine again Assessment & Plan (06/17/2023 2:05 PM EST): [...] of both ears 01/16/2023 Assessment & Plan (10/19/2024 2:12 PM EDT): Pt with previous c/o tinnitus with associated vertigo, using Meclizine PRN prescribed by Neurology Evaluated by ENT ( [facility]) last seen 11/26/2023 They obtained a brain MRI and IACs at [facility] ) that was read as normal for age. They recommended to reduce the meclizine and vestibular therapy but patient declined. They told her to continue to work with her neurologist. She was seen again 09/22/2024 by ENTwith TMJ and migrainous vertigo with c/o of right-sided periauricular pain, primarily anterior. She reports hearing and tinnitus are stable. Otologic exam was unremarkable. Physical exam revealed no identifiable source of otalgia involving the auricle, external auditory canal, or tympanic membrane. Examination was positive for right-sided tenderness of the jaw joint and andrea-TMJ musculature. No mass, swelling, or skin changes are appreciated. According to ENT the patient's auricular discomfort is most likely consistent with intermittent inflammation of the jaw joint or spasm of the surrounding musculature. Reviewed TMJ supportive measures. They offered fiberoptic laryngoscopy to rule out pharyngeal etiology, but patient declined. She will continue [id number] anti-inflammatories as needed. Recommend considering medical-grade mouth guard through their dentist if symptoms persist despite supportive management. Assessment & Plan (11/27/2023 2:42 PM EDT): Pt with previous c/o tinnitus with associated vertigo, using Meclizine PRN prescribed by Neurology Evaluated by ENT ( [facility]) last seen 11/26/2023 They obtained a brain MRI and IACs at [facility] ) that was read as normal [...] Preventative health care 08/06/2022 Assessment & Plan (10/19/2024 2:22 PM EDT): Mammogram: 04/09/2024 Normal Pap Smear: HPV neg, NILM, 04/03/[address] Lovett [facility] Colonoscopy: 08/17/2013 Dr. Smith. Repeat 03/09/2024 Dr Kaba at [facility] Normal aside from hemorrhoids, 10 yr follow up recommended Vaccines: Td: 06/07/2011 Declines booster Dexa scan: 05/25/2010. Assessment & Plan (06/17/2024 2:44 PM EST): Mammogram: 03/14/2023 Normal Pap Smear: HPV neg, NILM, 04/03/[address] Lovett [facility] Colonoscopy: 08/17/2013 Dr. Smith. Repeat 03/09/2024 Dr Kaba at [facility] Normal aside from hemorrhoids, 10 yr follow up recommended Vaccines: Td: 06/07/2011 Declines booster Dexa scan: 05/25/2010. Assessment & Plan (11/27/2023 2:55 PM EDT): Mammogram: 03/14/2023 Normal Pap Smear: HPV neg, NILM, 04/03/[address] Lovett [facility] Colonoscopy: 08/17/2013 Dr. Smith. Scheduled for Feb 2024 for a repeat. Vaccines: Td: 06/07/2011 Declines booster Dexa scan: 05/25/2010. Assessment & Plan (01/16/2023 3:01 PM EDT): Mammogram: 03/11/2022 BIRADS 3, due Feb 2023 Pap Smear: HPV neg, NILM, 04/03/[address] Lovett [facility] Colonoscopy: 08/17/2013 Dr. Smith Vaccines: Td: 06/07/2011 Dexa scan: 05/25/2010. Assessment & Plan (08/06/2022 2:21 PM EDT): Mammogram: 03/11/2022 BIRADS 3, due Feb 2023 Pap Smear: HPV neg, NILM, 04/03/[address] Lovett [facility] Colonoscopy: 08/17/2013 Dr. Smith Vaccines: Td: 06/07/2011 Dexa scan: 05/25/2010. Chronic neck pain 08/06/2022 Assessment & Plan (10/19/2024 2:09 PM EDT): Patient here for a f/u Lately c/o neck pain again previously pt presented with c/o persistent neck pain, pt completed PT with no good results. MRI of cervical spine done 08/23/2018 that [...] Plan: Continue with Pain, control and muscle relaxant. Pt was seen by Rheumatology who stated that: CT of the C-spine confirms [id number] degenerative disc disease at the C5-6 level with disc space narrowing and osteophyte formation. Recommended patient follow up with her spine doctors. Assessment & Plan (08/06/2022 2:28 PM EDT): [...] Bronchiectasis without complication 04/16/2022 Assessment & Plan (10/19/2024 2:06 PM EDT): Seen by Pulmonary Dr Hopson 06/29/2024 CT in December 2023 showed: Nonspecific, subcentimeter, noncalcified pulmonary nodules. Slightly [...] fluid in the pelvis. Assessment & Plan (06/17/2024 2:50 PM EST): [...] past was beneficial Will refer to Lenny Lieberman Ingrown toenail 04/16/2022 Assessment & Plan (03/02/2024 2:48 PM EST): S/p removal by Dr. Mack Perdue Assessment & Plan (01/06/2024 10:17 AM EDT): Previously referred to podiatry but patient unable to see them due to the fact thay they had no aviation electrical technician. Pt is requesting to have the [...] a Hx of severe anxiety. follows at [facility] On Klonopin 0.5 mg po qd prn for anxiety. Chronic low back pain 01/14/2012 Assessment & Plan (08/06/2022 2:24 PM EDT): follows at [facility], receives epidural injections intermittently. Fibromyalgia 01/14/2012 [...] was recommended Hypothyroidism 01/14/2012 Assessment & Plan (10/19/2024 2:19 PM EDT): Pt here for a f/u Most recent TSH 08/19/2023 normal at 2.02 Used to follow with Endocrinology at [facility] Endocrinology. She is on Synthroid 88 mcg po daily. Plan: Continue with current regimen Pt tells me the Nurse Assistant already told her there was no need to f/u with them to only follow with us Plan: Repeat TSH Assessment & Plan (11/27/2023 2:44 PM EDT): Pt here for a f/u Most recent TSH 08/19/2023 normal at 2.02 Used to follow with Endocrinology at [facility] Endocrinology. She is on Synthroid 88 mcg po daily. Plan: Continue with current regimen Pt tells me the Nurse Assistant already told her there was no need to f/u with them to only follow with us Assessment & Plan (08/19/2023 1:26 PM EDT): Pt here for a f/u Most recent TSH 06/18/2023 elevated at 9.46 Used to follow with Endocrinology at [facility] Endocrinology. She is on Synthroid 88 mcg po daily. Plan: Will repeat and if still elevated will increase it to 100 mcg po daily Pt tells me the Nurse Assistant already told her there was no need to f/u with them to only follow with us Plan: continue current regimen. Will repeat TSH Assessment & Plan (06/17/2023 2:07 PM EST): Pt here for a f/u Most recent TSH 01/27/2023 elevated at 6.02 Used to follow with Endocrinology at [facility] Endocrinology. She was on Synthroid 75 mcg po daily. I increased it to 88 mcg po daily Pt tells me the Nurse Assistant already told her there was no need to f/u with them to only follow with us Plan: continue current regimen. Will repeat TSH Assessment & Plan (01/16/2023 3:46 PM EDT): Pt here for a f/u Most recent TSH 03/27/2022 wnl Used to follow with Endocrinology at [facility] Endocrinology. She is currently on Synthroid 75 mcg po daily. Pt tells me the Nurse Assistant already told her there was no need to f/u with them to only follow with us Plan: continue current regimen. Will repeat TSH Assessment & Plan (08/06/2022 2:27 PM EDT): Pt here for a f/u Most recent TSH 03/27/2022 wnl Used to follow with Endocrinology at [facility] Endocrinology. She is currently on Synthroid 75 mcg po daily. Pt tells me the Nurse Assistant already told her there was no need [...] Encounters Date Type Department Care Team Description 12/02/2024 Telephone [facility] [address] [place] [phone] Anthony Moreno MD Referral 11/20/2024 Refill [facility] [address] [place] [address] Anthony Moreno MD 10/19/2024 2:15 PM EDT Office Visit [facility] [place] [address] Anthony Moreno MD Bronchiectasis without complication (CMS/HCC) (Primary Dx); Chronic neck pain; Tinnitus of both ears; Overweight (BMI 25.0-29.9); Dietary counseling; Exercise counseling; Acquired hypothyroidism; Hypersomnolence; Preventative health care 10/19/2024 Travel 10/18/2024 Telephone [facility] [address] [facility] [place] [address] Anthony Moreno MD Chart Prep 10/18/2024 Refill [facility] [address] [place] [place] [address] Anthony Moreno MD 10/11/2024 Patient Outreach [facility] [address] [place], [place] [phone] Anthony Moreno MD Pre-visit Planning (SDOH was already completed ) 09/16/2024 Refill [facility] [address] [place] [address] Renea Aviles MD 09/15/2024 Orders Only GENERIC EXTERNAL DATA DEPARTMENT Provider, Generic External Data from Last 3 Months Immunizations Immunization Administration Dates Next Due Pfizer Covid-19 Vaccine [...] Sign Reading Time Taken Comments Blood Pressure 128/66 10/19/2024 2:11 PM EDT Pulse 61 10/19/2024 2:11 PM EDT Temperature 37.3 C (99.1 F) 10/19/2024 2:11 PM EDT Respiratory Rate 22 10/19/2024 2:11 PM EDT Oxygen Saturation 99% 08/17/2024 11:28 AM EDT Inhaled Oxygen Concentration - - Weight 68.2 kg (150 lb 4 oz) 10/19/2024 2:11 PM EDT Height 154.9 cm (5' 1 ) 10/19/2024 2:11 PM EDT Body Mass Index 28.39 10/19/2024 2:11 PM EDT Plan of Treatment Upcoming Encounters Date Type Department Care Team (Late st Contact Info) Description 01/06/2025 10:00 AM EDT Office Visit [facility] [address] [place] [address] Ev, Yary [address] [place] [address] Health Maintenance Due Date Last Done Comments [...] series) 2023 COVID-19 Vaccine (3 - season) 2024 10/28/2020, 10/06/2020 Influenza Vaccine (#1) 2024 Dental Oral Exam 01/06/2025 07/05/2024, 08/2022, 05/03/2022 Dental Prophylaxis 01/06/2025 07/05/2024, 0 01/05/2024, 01/31/2023, Additional history exists Alcohol/Substance Use Screening 03/02/2025 03/02/2024 Disability Screening 03/02/2025 03/02/2024 SDOH Screening 06/08/2025 06/08/2024 Depression Screening 06/17/2025 06/17/2024, 06/18/19 Dental X-Ray: Bitewings 07/06/2025 07/06/19, 01/31/2023, 05/03/2022 DTaP/Tdap/Td Vaccines (1 - Tdap) 08/05/2025 06/07/2011, 07/19/1997 Postponed from 06/08/2011 (Patient Refused) Tobacco Screening 10/19/2025 10/19/2024 Mammogram 04/09/2026 04/09/2024, 1210/2023, 03/16/2024, Additional history exists Dental X-Ray: Full [...] Procedure Name Priority Date/Time Associated Diagnosis Comments TSH W/REFLEX TO FT4 Routine 10/19/2024 2 :36 PM EDT Acquired hypothyroidism LIPASE Routine 09/15/2024 12:12 PM EDT AMYLASE Routine 09/15/2024 12:12 PM EDT COMPREHENSIVE METABOLIC PANEL Routine 09/15/2024 12:12 PM EDT PROPHYLAXIS - ADULT Routine 07/05/2024 1 0:00 AM EDT Dental calculus INTRAORAL - COMPLETE SERIES OF RADIOGRAPHIC IMAGES Routine 07/05/2024 10:00 AM EDT Dental calculus PERIODIC ORAL EVALUATION - ESTABLISHED PATIENT Routine 07/05/2024 10:00 AM EDT BI US BREAST LIMITED BILATERAL Routine 04/09/2024 [...] Recently Relevant to Health Maintenance Results * TSH with Reflex to Free T4 (10/19/2024 2:36 PM EDT) TSH reflex Free T4 0.80 0.32 - 4.0 uIU/mL [facility] Blood Venous blood specimen / Unknown 10/19/2024 2:36 PM EDT 10/19/2024 5:13 PM EDT us Anthony Muller MD LAB BLOOD ORDERABLES Final Result [facility] [address] [place] [address] [phone] * Lipase (09/15/2024 12:12 PM EDT) Pathologist [facility] Lipase 20 8 - 78 U/L [facility] 09/15/2024 12:1 2 PM EDT 09/15/2024 12:12 PM EDT us Generic External Data Provider LAB BLOOD ORDERAB LES Final Result Performing Organization Address [facility] Co de Phone Number [facility] [address] [place] [phone] * Amylase (09/15/2024 12:12 PM EDT) Pathologist [facility] Amylase 52 28 - 100 U/L [facility] 09/15/2024 12:1 2 PM EDT 09/15/2024 12:12 PM EDT Generic External Data Provider LAB BLOOD ORDERAB LES Final Result Performing Organization Address [facility] Co de Phone Number [facility] [address] [place] [phone] * (ABNORMAL) Comprehensive Metabolic Panel (09/15/2024 12:12 PM EDT) Pathologist [facility] Sodium 140 135 - 145 mmol/L [facility] Potassium 4.5 3.3 - 5.1 mmol/L [facility] Chloride 108 96 - 108 mmol/L [facility] Carbon Dioxide 26 22 - 29 mmol/L [facility] Anion Gap 11(L) 12 - 20 [facility] Urea Nitrogen (BUN) 12 9 - 16 mg/dL [facility] Creatinine, Serum 0.88 0.5 - 1.4 mg/dL [facility] Estimated Glomerular Filt Rate >60 [facility] Comment:Chronic Kidney Disea se: Estimated GFR < 60 mL/min/[id number] Kidney Disease: Estimated GFR < 15 mL/min/1.73m2 Glucose 90 60 - 115 mg/dL [facility] Calcium 10.1 8.4 - 10.2 mg/dL [facility] Bilirubin, Total 0.3 0.0 - 1.0 mg/dL [facility] Aspartate Amino Transferase 28 5 - 31 U/L [facility] Alanine Aminotransferase 39(H) 0 - 31 U/L [facility] Total Protein 7.5 6.5 - 8.0 g/dL [facility] Albumin Level 4.6 3.5 - 5.0 g/dL [facility] Alkaline Phosphatase 94 39 - 117 U/L [facility] 09/15/2024 12:1 2 PM EDT 09/15/2024 12:12 PM EDT us Generic External Data Provider LAB BLOOD ORDERAB LES Final Result Performing Organization Address City/State/[facility] Co de Phone Number [facility] [address] [place] [phone] * BI US Breast Limited Bilateral (04/09/2024 10:45 AM EST) Anatomical Region Laterality Modality Breast Bilateral Ultrasound 04/09/2024 10:4 5 AM EST Narrative 04/09/2024 11:01 AM EST [facility] [address] [place] [address] Ultrasound Report Signed Patient: Steffanie Esquivel MR#: [id number] : 1965 Acct:[id number] Age/Sex: 59 / F ADM Date: 04/09/24 Loc: HO.MAMMO Attending Dr: Anthony Blevins MD Ordering Physician: Anthony Blevins MD Date of Service: 04/09/24 Procedure(s): US breast BI limited mamm only Accession Number(s): [id number] cc: Anthony Blevins MD EXAMINATION: MM DIAGNOSTIC [...] 04/09/24 1058 DD/ 1045 TD/TT: 04/09/24 1057 Business Intelligence Reporting Analyst: Procedure Note Donotuseinterpreter, Image - 04/09/2024 [facility] [address] [place], [place] [address] Ultrasound Report Signed Patient: Steffanie EsquivelMR#: [id number] : 1965Acct:[id number] Age/Sex: 59 / FADM Date: 04/09/24 Loc: HO.MAMMO Attending Dr: Anthony Blevins MD Ordering Physician: Anthony Blevins MD Date of Service: 04/09/24 Procedure(s): US breast BI limited mamm only Accession Number(s): [id number] cc: Anthony Blevins MD EXAMINATION: MM DIAGNOSTIC [...] 04/09/24 1058 DD/ 1045 TD/TT: 04/09/24 1057 Business Intelligence Reporting Analyst: Anthony Muller MD IMG US PROCEDURES Fin al Result * Pap Smear (03/17/2024 9:55 AM EST) 03/17/2024 9:55 AM EST 03/18/2024 8:20 AM EST [facility] - 03/24/2024 10:20 AM EST ----- ------- Name: Steffanie Esquivel Age/Sex: 59/F : 1965 Unit#: [id number] Attend Dr: Gary Lovett MD Re03/17/24 Status: DEP REF Location: [facility] Disch: ----- ------- SPEC : [id number] RECD: 03/18/24 STATUS: THEA PASCUAL NUM: [id number] RAIMUNDO: 03/17/24 [facility] DR: Gary Lovett MD ENTERED: 03/18/24 SP TYPE: Pap Smr OTHR DR: Anthony Blevins MD ORDERED: Pap Smear Interpretation Satisfactory for evaluation. No endocervical cells seen. Negative for intraepithelial lesion or malignancy. HPV High Risk: Negative HPV Genotyping 16: Negative HPV Genotyping 18: Negative Note: Abundant blood present. Clinical Information LMP: Postmenopausal Previous PAP test: Unknown date/findings Other history: Postmenopausal bleeding 3 Material Received ThinPrep-Cervical Copies To: Anthony Blevins MD [address] [address] Gary Lovett MD [facility] [address] [place] [phone] ----- ------- Signed (signature on file) RYAN Candelario (ASCP) 03/24/24 1020 ----- ------- END OF REPORT Generic External Data Provider LAB CYTOLOGY JHONNY RABLES Final Result [facility] [address] [place] [phone] * Hm Colonoscopy (03/09/2024 9:14 AM EST) Colonoscopy Normal Normal 03/09/2024 9:14 AM EST Historical Provider HEALTH MAINTENANCE Final Result * Hepatitis C Antibody with Reflex to HCV, RNA, Quantitative, Real-Time PCR (01/27/2023 1:47 PM EDT) Hepatitis C Antibody Nonreactive Nonreactive [facility] Comment:Antibodies to HCV no t detected; does not exclude early acuteHCV infection. Blood Venous blood specimen / Unknown 01/27/2023 1:47 PM EDT 01/27/2023 1:47 PM EDT Anthony Muller MD LAB BLOOD ORDERABLES Final Result [facility] [address] [place] [address] [phone] * HPV E6/E7 RFLX MIKAL 16 18/45 (04/03/2021 3:12 PM EST) HPV mRNA E6/E7 rflx Not Detected Not Detected [facility] Comment: Methodology: Cake Mixer-Mediated Amplification This assay detects E6/E7 viral messenger RNA (mRNA) from 14 high-risk HPV types (16,18,31,33,35,39,45,51,52,56,58,59,66,68). The analytical performance characteristics of this assay have been determined by [employer]. The modifications have not been cleared or approved by the FDA. This assay has been validated pursuant to the CLIA regulations and is used for clinical purposes. For additional information, please refer to http://education.qcue/faq/TRN045y5 (This link if provided for information/ educational purposes only.) THIS TEST WAS PERFORMED AT: [facility] [address] [facility] [address] [phone] FABRICIO SINHA MD 04/03/2021 3:12 PM EST us Gary Lovett MD HISTORICAL/NON ORDERABLE LABS Fi nal Result Performing Organization Address City/[facility]/ZIP Co de Phone Number [facility] [address] from Last 3 Months or Most Recently Relevant to Health Maintenance [facility] STAND ADULT [facility] STANDARD D[facility] MEDICAID STAND ADULT Care Teams Motorcycle Tester Relationship Specialty Start Date End Date Anthony Moreno MD [address] [place] [address] PCP - General Internal Medicine 03/07/14
--- OUTSIDE RECORDS SUMMARY | 2024-12-14 14:31 | XMS_ITS | Encounter Summary ---
Author Organization [facility] Address [address] [facility] 7[address] [place] [address] Care Team Providers Care Residential Property Manager Name Role Phone Anthony Moreno MD Primary Care Provide r Encounter Details Date Type Department Care Team (Latest Contact Info) Description 06/24/2018 Abstract [facility] CONVERSIONS Dental, Provider, DDS Social History Tobacco [...] Description 01/06/2025 10:00 AM EDT Office Visit [facility] [address] [place] [address] Ev, Yary [address] [place] [address] documented as of this encounter Visit Diagnoses Not on filedocumented in this encounter Care Teams Residential Property Manager Relationship Specialty Start Date End Date Anthony Moreno MD [address] [place] [address] PCP - General Internal Medicine 03/07/14 documented as of this encounter
--- OUTSIDE RECORDS SUMMARY | 2024-12-14 14:32 | XMS_ITS | Encounter Summary ---
Author Organization [facility] Address [address] [place] [address] [address] [place] [address] Care Team Providers Care Automobile Mechanic Helper Name Role Phone Anthony Moreno MD Primary Care Provide r Encounter Details Date Type Department Care Team ([facility] Contact Info) Description 08/22/2022 Abstract [facility] MEDICINE [address] [place] [address] Anthony Moreno MD [address] [place], [place] [id number] Social History Tobacco Use Types Packs/Day Years [...] Encounters Date Type Department Care Team (Late Contact Info) Description 01/06/2025 10:00 AM EDT Office Visit [facility] ADULT DENTAL [address] [place] [address] Yary Carreno [address] [place] [address] documented as of this encounter Procedures Procedure Name Priority Date/Time Associated Diagnosis Comments COLONOSCOPY Routine 08/17/2013 documented in this encounter Results * Colonoscopy (08/17/2013) Colonoscopy Normal Normal 08/17/2013 Aidee Benedict - 08/17/2013 2:57 PM EDT Recommended 10 year follow up ( [facility] ) Historical Provider HEALTH MAINTENANCE Final Result documented in this encounter Visit Diagnoses Not on filedocumented in this encounter Care Teams Automobile Mechanic Helper Relationship Specialty Start Date End Date Anthony Moreno MD [address] [place] [id number] PCP - General Internal Medicine 03/07/14 documented as of this encounter
--- OUTSIDE RECORDS SUMMARY | 2024-12-14 14:32 | XMS_ITS | Encounter Summary ---
Author Organization [facility] Address [address] [place] [address] [address] [place] [address] Care Team Providers Care Report Checker Name Role Phone Anthony Moreno MD Primary Care Provide r Encounter Details Date Type Department Care Team (Late st Contact Info) Description 03/19/2022 Abstract [facility] MEDICINE [address] [place] [address] ProviderRick MD Social History Tobacco Use Types [...] Description 01/06/2025 10:00 AM EDT Office Visit [facility] ADULT DENTAL [address] [place] [address] Ev, Yary [address] [place] [address] documented as of this encounter Visit Diagnoses Not on filedocumented in this encounter Care Teams Report Checker Relationship Specialty Start Date End Date Anthony Moreno MD [address] [place] [address] PCP - General Internal Medicine 03/07/14 documented as of this encounter
--- OUTSIDE RECORDS SUMMARY | 2024-12-14 14:32 | XMS_ITS | Encounter Summary ---
Author Organization [employer] Address [address] [facility] [address]t [place] [address] Care Team Providers Care Compliance Technician Name Role Phone Anthony Moreno MD Primary Care Provide r Reason for Visit * Reason Onset Date Comments Referral 12/02/2024 Encounter Details Date Type Department Care Team ([facility] Contact Info) Description 12/02/2024 Telephone [facility] MEDICINE [address] [place], [place] [phone] Anthony Moreno MD [address] [place] [address] Referral Social History Tobacco Use Types Packs/Day [...] Telephone Encounter - Arianne Baumann RN - 12/06/2024 3:55 PM EDT TC placed to the pt with S chief technician #[id number] to follow up on the requested referral to the [facility]. The pt states that she had an appt scheduled for 12/03/2024 but had to r/s due to needing a referral from PCP. Pt is currently r/s for 01/07/2025. Pt main indication for being seen at this office if for varicose veins The address and office location is listed below [facility] Dr. Abad Meier [address], [place] [address] * Telephone Encounter - Alvin Erickson - 12/02/2024 11:54 AM EDT Tc from pt requesting a referral too [facility] Dr[facility] Abad Meier [address], [place] [address] , pt states she has an apt scheduled tomorrow Contact pt at [phone] (gibraltarian) documented in this encounter Plan of Treatment Upcoming Encounters Date Type Department Care Team (Late st Contact Info) Description 01/06/2025 10:00 AM EDT Office Visit [facility] ADULT DENTAL [address] [place] [address] Yary Carreno [address] [place] [address] documented as of this encounter Visit Diagnoses Not on filedocumented in this encounter Additional Health Concerns Assessment Noted Time PHQ-9 Depression Total Score: 5 06/18/19 25 2:26 PM EST documented as of this encounter Care Teams Compliance Technician Relationship Specialty Start Date End Date Anthony Moreno MD [address] [place] [address] PCP - General Internal Medicine 03/07/14 documented as of this encounter
== END 2024-12-14 14:38 | disposition home or self-care (01) ==
LOC: HO.HSMS 13:13
PROVIDERS: PCP Internal Medicine; Visit Provider Physician Assistant Medical
DX: G47.19 Other hypersomnia (principal); R51.9 Headache, unspecified; G89.29 Other chronic pain; H81.4 Vertigo of central origin
CPT/HCPCS: 99204

== ENCOUNTER → 2024-12-14 13:12 | Outpatient (BNVA) | payer MEDICAID, SELFPAY | PROVIDERS: PCP Internal Medicine; Visit Provider Physician Assistant Medical | DX: H81.4 Vertigo of central origin (principal); R51.9 Headache, unspecified; G89.29 Other chronic pain; G47.19 Other hypersomnia; G47.9 Sleep disorder, unspecified; R53.83 Other fatigue | CPT/HCPCS: 99212 ==

== ENCOUNTER 2024-12-22 12:50 | Outpatient (AMB) | payer MEDICAID, SELFPAY ==
--- NOTE | 2024-12-22 13:13 | MHC.OFFVIS ---
Vital Signs 12/22/24 13:23 Height 5 ft 1 in Weight 147 lb 0.773 oz BMI 27.8 BP 120/70 Blood Pressure Location Lt brachial Position Sitting Pulse 68 Pulse Source Pulse Oximeter Pulse Oximetry (%) 99 Oxygen Delivery Method Room Air Intake Visit Reasons: OA hand and FM Intake Note: Patient presents for OA hand and FM follow up. Wallpaper Hanger Helper Required: Yes Wallpaper Hanger Helper Language: Processing Spec Services: Wallpaper Hanger Helper Present Wallpaper Hanger Helper Name: Kori [phone] Information Interpreted: non-clinical & clinical Allergies cholestyramine Allergy (Intermediate, Verified 12/22/24 13:23) itching Medication List - Last Reconciled 12/22/24 by Leanna Carter MD acetaminophen 1,000 mg (2 x 500 mg) PO Q8H PRN amitriptyline 75 mg PO BEDTIME blood pressure test kit-large (Omron Blood Pressure Monitor-3 Series kit) As directed clonazepam 0.5 mg PO BEDTIME cyclobenzaprine 10 mg PO TID PRN dexlansoprazole (Dexilant) 60 mg PO DAILY 90 days dicyclomine 20 mg PO QID 30 days eluxadoline (Viberzi) 100 mg PO BID fluticasone propionate 50 mcg/actuation (Allergy Relief (fluticasone)) 1 spray intranasal DAILY hydrocortisone 2.5% 1 appl topical BID PRN ketorolac 0.5% drps ophthalmic (eye) levothyroxine 88 mcg PO DAILY loperamide 2 mg PO Q6H PRN loratadine (Allergy Relief (loratadine)) 10 mg PO DAILY meclizine 25 mg PO DAILY PRN multivitamin 1 tab PO DAILY naproxen 500 mg PO BID oxybutynin chloride ER 15 mg PO DAILY pregabalin 150 mg PO BID 90 days propranolol 20 mg PO BID simethicone 180 mg PO QID sucralfate (Carafate) 1 g PO QNOON sumatriptan succinate 50 mg PO ONCE 30 days MDD 200mg umeclidinium 62.5 mcg/actuation (Incruse Ellipta) 1 inh PO DAILY Ventolin HFA 90 mcg/actuation (albuterol sulfate) 2 puffs PO Q4-6H PRN NS HPI Comments Details: Patient is a 59-year-old female with reactive airway disease, bronchiectasis, IBS with diarrhea, GERD, polyarticular osteoarthritis with erosive OA and fibromyalgia here today for follow up Interval History: Patient last seen 07/01/24 - On pregabalin 100mg bid - Complaining of neck pain that radiates to her shoudlers and her upper back - Went to the ER 06/25/2024 and received flexeril which helped with the pain a little - Pregabalin increased to 150mg PO bid Today, - On pregabalin 150mg bid - Thinks that this helped reduce her pain a little bit - Still has neck pain, but it waxes and wanes in intensity Current Rheumatology Medication(s): Pregabalin 150mg bid PFS Medical History Tinnitus of both ears Chronic leukopenia BRBPR (bright red blood per rectum) Dental calculus Bleeding gums Urge incontinence of urine Acute migraine Hypothyroidism (acquired) Back pain Cough Vaginal discharge Pre-op examination Preop pulmonary/respiratory exam Well woman exam 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 GERD (gastroesophageal reflux disease) Anxiety Depression Fibromyalgia Surgical History Hx of surgical procedure (~02/19/24) Hx of elbow surgery History of colonoscopy (03/09/24) History of bilateral tubal ligation History of cholecystectomy Family History Family/Other Cancer Social History Household Members: None Housing: Apartment Are you a primary daycare provider to a significant other at home: No Do you presently have visiting nurse or other home services: Yes ([employer] 1 hour/day) Alcohol intake: current Alcohol intake frequency: does not drink Patient Tobacco Use Status: Never used Tobacco Advance Directives Date on File: 01/19/20 Current occupational status: disabled Sexual orientation: Straight/Heterosexual Gender identity: Female Female Reproductive History Menstrual Age of Menarche: 7 Review of Systems Const Details: Review of Systems Constitutional: Denies fever, chills, weight loss ENT: Denies vision changes, eye pain or eye redness, dental caries, dry mouth GI: Denies nausea, vomiting, diarrhea, abdominal pain, change in BM Pulm: Denies SOB, BATISTA, hemoptysis, wheezing Cards: Denies chest pain, palpitations Skin: Denies Raynaud's, rash, nail changes, photosensitivity, SUPERINTENDENT RADIO COMMUNICATIONS: Denies headaches, weakness, paresthesias, recurrent falls MSK: as per HPI All other systems reviewed and are unremarkable except noted above Physical Exam Exam Exam: Vital signs reviewed Physical Examination CONSTITUITIONAL Patient alert and cooperative. Well appearing and in no apparent painful distress MSK Hands Right Hand: Able to make a fist. No swelling or tenderness to palpation of the MCPs, PIPs or DIPs. Left Hand: Able to make a fist. No swelling or tenderness to palpation of the MCPs, PIPs or DIPs. Herbedens nodes noted bilaterally Bilateral squarring of the 1st CMC Wrists Right Wrist: Full ROM to flexion and extension. No swelling or TTP Left Wrist: Full ROM to flexion and extension. No swelling or TTP. Positive Nam's test Elbows Right Elbow: Full ROM. No swelling or TTP. No TTP of the medial epicondyle. No TTP of the lateral epicondyle Left Elbow: Full ROM. No swelling or TTP. No TTP of the medial epicondyle. No TTP of the lateral epicondyle Shoulders Right shoulder: No swelling noted. No TTP of the AC joint. No TTP of the subacromial bursa. No TTP of the posterior shoulder Left shoulder: No swelling noted. No TTP of the AC joint. No TTP of the subacromial bursa. No TTP of the posterior shoulder Knees Right knee: Full ROM. No swelling noted. No TTP of the knee joint line. No TTP of pes anserine bursa Left knee: Full ROM. No swelling noted. No TTP of the knee joint line. No TTP of pes anserine bursa. Crepitations felt bilaterally Ankles Right ankle: Good ankle dorsiflexion and plantar flexion. No swelling. No TTP of the ankle joint Left ankle: Good ankle dorsiflexion and plantar flexion. No swelling. No TTP of the ankle joint Feet Right foot: Negative squeeze test Left foot: Negative squeeze test Tender points? No tenderness to palpation of the bilateral trapezius, supraspinatus, anterior costochondral junctions, bilateral suboccipital muscle insertions SKIN No rashes Vital Signs: Last Vital Signs Pulse 68 12/22/24 13:23 BP 120/70 12/22/24 13:23 Pulse Ox 99 12/22/24 13:23 Oxygen Delivery Method Room Air 12/22/24 13:23 BMI result Body Mass Index 27.8 Results Reviewed Results Reviewed: Laboratory Tests 09/15/24 12:12 Sodium 140 Potassium 4.5 Chloride 108 Carbon Dioxide 26 BUN 12 Creatinine 0.88 AST 28 ALT 39 H Assessment & Plan Assessment & Plan (1) Spondylolysis of cervical spine: Code(s): M43.02 - Spondylolysis, cervical region Plan: #C-Spine spondylosis with radiculopathy Patient is a 59-year-old female with fibromyalgia here today for follow up. Had improvement with the Lyrica increase Will increase the PM dose to 200mg and keep the AM dose to 150mg Plan - Pregabalin 200mg PM, 150mg AM - Continue naproxen and cyclobenzaprine from other providers - RTC 1 year Plan I spent 20 minutes reviewing the record and labs, taking a history, examining the patient, discussing the treatment plan and documenting in the medical record Medications: Changed From pregabalin 150 mg PO BID 90 days 180 caps 1RF M79.7 - Fibromyalgia To pregabalin One and a half tablets in the AM and 2 tablets in the PM 200 mg (2 x 100 mg) PO BID 360 caps 4RF 90 days M79.7 - Fibromyalgia Coding Level of Care Code Est Pt Level 3 (02964) Diagnoses Spondylolysis of cervical spine M43.02
[2024-12-22 13:23] VITALS: BP 120/70; PULSE 68; O2SAT 99; BMI 27.8
--- OUTSIDE RECORDS SUMMARY | 2024-12-22 15:51 | XMS_ITS | Encounter Summary ---
Author Organization [facility] Address [address] [facility] [address] [place] [address] Care Team Providers Care Rheostat Assembler Name Role Phone Anthony Moreno MD Primary Care Provide r Encounter Details Date Type Department Care Team (Latest Contact Info) Description 11/20/2020 Abstract [facility] CONVERSIONS Dental, Provider, DDS Social [...] Description 01/06/2025 10:00 AM EDT Office Visit [facility] ADULT DENTAL [address] [place] [address] Ev, Yary [address] [place] [address] documented as of this encounter Visit Diagnoses Not on filedocumented in this encounter Care Teams Rheostat Assembler Relationship Specialty Start Date End Date Anthony Moreno MD [address] [place] [address] PCP - General Internal Medicine 03/07/14 documented as of this encounter
--- OUTSIDE RECORDS SUMMARY | 2024-12-22 15:51 | XMS_ITS | Encounter Summary ---
Author Organization [facility] Address [address] [facility] [address]t [place] [address] Care Team Providers Care Chemistry Department Chair Name Role Phone Anthony Moreno MD Primary Care Provide r Encounter Details Date Type Department Care Team (Latest Contact Info) Description 06/24/2018 Abstract [facility] CONVERSIONS Dental, Provider, DDS Social History [...] 10:00 AM EDT Office Visit [facility] ADULT DENTAL [address] [place] [address] Ev, Yary [address] [place] [address] documented as of this encounter Visit Diagnoses Not on filedocumented in this encounter Care Teams Chemistry Department Chair Relationship Specialty Start Date End Date Anthony Moreno MD [address] [place] [address] PCP - General Internal Medicine 03/07/14 documented as of this encounter
--- OUTSIDE RECORDS SUMMARY | 2024-12-22 15:51 | XMS_ITS | Clinical Summary ---
Author Organization [employer] Address [address] [facility] 7t [place] [address] Care Team Providers Care Green House Manager Name Role Phone Anthony Moreno MD Primary Care Provide r Allergies No known active allergies Medications SUMAtriptan (Imitrex) 50 MG tablet TAKE 1 TABLET BY MOUTH AT LEAST 2 HOURS BETWEEN DOSES NEEDED ONCE A DAY 2 Active sucralfate (Carafate) 1 g tablet TAKE 2 TABLETS BY MOUTH EVERY EVENING BEFORE A MEAL 2 Active Simethicone Ultra Strength 180 MG capsule Take 180 mg by mouth if needed in the morning, at noon, in the evening, and at bedtime. 2 Active propranolol (Inderal) 20 MG tablet Take 20 mg by mouth 2 times daily. 2 Active oxybutynin XL (Ditropan-XL) 15 MG 24 hr tablet Take 15 mg by mouth in the morning. 2 Active dicyclomine (Bentyl) 20 MG tablet Take 20 mg by mouth 4 times daily. 2 Active [address] capsule Take 1 capsule by mouth in the morning. 2 Active clonazePAM (KlonoPIN) 0.5 MG tablet TAKE 1/2 TO 1 TABLET BY MOUTH EVERY DAY NEEDED 2 Active amitriptyline (Elavil) 75 MG tablet Take 75 mg by mouth at bedtime. 2 Active ProAir HFA 108 (90 Base) MCG/ACT inhaler INHALE 2 PUFFS BY MOUTH EVERY 4 TO 6 HOURS NEEDED FOR SHORTNESS OF BREATH OR WHEEZING 2 Active hydrocortisone (Proctosol HC) 2.5 % rectal creamIndications:B RBPR (bright red blood per rectum) Insert into the rectum 2 times daily. 28 g 3 Active Viberzi 100 MG tablet Take 1 tablet by mouth 2 times daily. 3 Active Incruse Ellipta 62.5 MCG/ACT aerosol powder INHALE 1 PUFF BY MOUTH DAILY 3 Active loperamide (Imodium) 2 MG capsule TAKE 1 CAPSULE BY MOUTH EVERY 6 HOURS NEEDED FOR DIARRHEA 3 Active Multiple Vitamin (multivitamin) tabletIndications: Peripheral polyneuropathy Take 1 tablet by mouth Once per day. 30 tablet 6 5 Active pregabalin (Lyrica) 100 MG capsuleIndications :Peripheral polyneuropathy TAKE 1 CAPSULE BY MOUTH TWICE DAILY 60 capsule 1 5 Active loratadine (Claritin) 10 MG tabletIndications: Seasonal allergies TAKE 1 TABLET BY MOUTH EVERY MORNING 90 tablet 1 5 Active Blood Pressure kitIndications:Keena vated blood pressure reading without diagnosis of hypertension 1 each 2 times daily. 1 kit 5 08/06/19 26 Active levothyroxine (Synthroid, Levoxyl) 88 MCG tabletIndications: Acquired hypothyroidism TAKE 1 TABLET(88 MCG) BY MOUTH DAILY 90 tablet 1 5 Active meclizine (Antivert) 25 MG tabletIndications: Vertigo TAKE 1 TABLET(25 MG) BY MOUTH EACH DAY NEEDED FOR DIZZINESS 30 tablet 1 5 Active fluticasone (Flonase) 50 MCG/ACT nasal spray SHAKE LIQUID AND USE 1 SPRAY IN EACH NOSTRIL EVERY DAY 48 g 5 Active naproxen (Naprosyn) 500 MG tablet TAKE 1 TABLET BY MOUTH TWICE DAILY WITH MEALS 60 tablet 5 Active Active Problems Problem Noted Date Diagnosed Date Arthralgia of bilateral temporomandibular joint 07/05/2024 Postmenopausal bleeding 06/17/2024 Assessment & Plan (06/17/2024 2:48 PM EST): Under the care of Dr gary Lovett ENGINE TEST CELL TECHNICIAN , last seen 05/2024 She is now [...] She will continue to follow with Dr. Bony Garsia (BMI 25.0-29.9) 06/17/2024 Assessment & Plan (10/19/2024 [...] synovitis on exam. She refused injection from Paper Rewinder Operator. She had surgery on the right elbow for nerve pain and wants to he the left hand done. Paper Rewinder Operator recommended to continue with Tylenol and over [...] of films were also faxed to patient's environmental services aide Assessment & Plan (01/06/2024 10:16 AM EDT): Evaluated by Rheumatology last seen 06/2023 recommended 1 year follow up Prior serology with negative SONYA, RF, and anti-CCP. Hand pain to the right is resolved, X-rays from 2022 showed osteoarthritis. No synovitis on exam. She refused injection from Paper Rewinder Operator. She had surgery on the right elbow for nerve pain and wants to he the left hand done. Paper Rewinder Operator recommended to continue with Tylenol and over [...] Evaluated by ENT ( [facility]) last seen 11/26/2023 They obtained a brain MRI and IACs at [facility] ) that was read as normal [...] etiology, but patient declined. She will continue [id number]-[id number] anti-inflammatories as needed. Recommend considering medical-grade mouth guard through their dentist if symptoms persist despite supportive management. Assessment & Plan (11/27/2023 2:42 PM EDT): Pt with previous c/o tinnitus with associated vertigo, using Meclizine PRN prescribed by Neurology Evaluated by ENT ( [facility]) last seen 11/26/2023 They obtained a brain MRI and IACs at [facility] ) that was read as normal [...] NILM, 04/03/[address] Lovett [facility] Colonoscopy: 08/17/2013 Dr. Smith. Repeat 03/09/2024 Dr Kaba at [facility] Normal aside from hemorrhoids, 10 yr follow up recommended Vaccines: Td: 06/07/2011 Declines booster Dexa scan: 05/25/2010. Assessment & Plan (06/17/2024 2:44 PM EST): Mammogram: 03/14/2023 Normal Pap Smear: HPV neg, NILM, 04/03/[address] Lovett [facility] Colonoscopy: 08/17/2013 Dr. Smith. Repeat 03/09/2024 Dr Kaba at [facility] Normal aside from hemorrhoids, 10 yr follow up recommended Vaccines: Td: 06/07/2011 Declines booster Dexa scan: 05/25/2010. Assessment & Plan (11/27/2023 2:55 PM EDT): Mammogram: 03/14/2023 Normal Pap Smear: HPV neg, NILM, 04/03/[address] Lovett [facility] Colonoscopy: 08/17/2013 Dr. Smith. Scheduled for Feb 2024 for a repeat. Vaccines: Td: 06/07/2011 Declines booster Dexa scan: 05/25/2010. Assessment & Plan (01/16/2023 3:01 PM EDT): Mammogram: 03/11/2022 BIRADS 3, due Feb 2023 Pap Smear: HPV neg, NILM, 04/03/[address] Lovett [facility] Colonoscopy: 08/17/2013 Dr. Smith Vaccines: Td: 06/07/2011 Dexa scan: 05/25/2010. Assessment & Plan (08/06/2022 2:21 PM EDT): Mammogram: 03/11/2022 BIRADS 3, due Feb 2023 Pap Smear: HPV neg, NILM, 04/03/[address] Lovett [facility] Colonoscopy: 08/17/2013 Dr. Smith Vaccines: Td: 06/07/2011 [...] stated that: CT of the C-spine confirms mwov-zf-kknmdnbn degenerative disc disease at the C5-6 level [...] to the fact thay they had no nuclear equipment operator. Pt is requesting to have the toenail [...] a Hx of severe anxiety. follows at [facility]. On Klonopin 0.5 mg po qd prn for anxiety. Chronic low back pain 01/14/2012 Assessment & Plan (08/06/2022 2:24 PM EDT): follows at [facility], receives epidural injections intermittently. Fibromyalgia 01/14/2012 [...] 2.02 Used to follow with Endocrinology at [facility] [place] Endocrinology. She is on Synthroid 88 mcg po daily. Plan: Continue with current regimen Pt tells me the Hot Dip Galvanizer already told her there was no need to f/u with them to only follow with us Plan: Repeat TSH Assessment & Plan (11/27/2023 2:44 PM EDT): Pt here for a f/u Most recent TSH 08/19/2023 normal at 2.02 Used to follow with Endocrinology at [facility] [place] Endocrinology. She is on Synthroid 88 mcg po daily. Plan: Continue with current regimen Pt tells me the Hot Dip Galvanizer already told her there was no need to f/u with them to only follow with us Assessment & Plan (08/19/2023 1:26 PM EDT): Pt here for a f/u Most recent TSH 06/18/2023 elevated at 9.46 Used to follow with Endocrinology at [facility] [place] Endocrinology. She is on Synthroid 88 mcg po daily. Plan: Will repeat and if still elevated will increase it to 100 mcg po daily Pt tells me the Hot Dip Galvanizer already told her there was no need to f/u with them to only follow with us Plan: continue current regimen. Will repeat TSH Assessment & Plan (06/17/2023 2:07 PM EST): Pt here for a f/u Most recent TSH 01/27/2023 elevated at 6.02 Used to follow with Endocrinology at [facility] [place] Endocrinology. She was on Synthroid 75 mcg po daily. I increased it to 88 mcg po daily Pt tells me the Hot Dip Galvanizer already told her there was no need to f/u with them to only follow with us Plan: continue current regimen. Will repeat TSH Assessment & Plan (01/16/2023 3:46 PM EDT): Pt here for a f/u Most recent TSH 03/27/2022 wnl Used to follow with Endocrinology at [facility] [place] Endocrinology. She is currently on Synthroid 75 mcg po daily. Pt tells me the Hot Dip Galvanizer already told her there was no need to f/u with them to only follow with us Plan: continue current regimen. Will repeat TSH Assessment & Plan (08/06/2022 2:27 PM EDT): Pt here for a f/u Most recent TSH 03/27/2022 wnl Used to follow with Endocrinology at [facility] [place] Endocrinology. She is currently on Synthroid 75 mcg po daily. Pt tells me the Hot Dip Galvanizer already told her there was no need [...] Encounters Date Type Department Care Team Description 12/14/2024 Orders Only [facility] [place] [address] Anthony Moreno MD Varicose veins of both lower extremities, unspecified whether complicated (Primary Dx) 12/02/2024 Telephone [facility] [place] [address] Anthony Moreno MD Referral 11/20/2024 Refill [facility] [place] [address] Anthony Moreno MD 10/19/2024 2:15 PM EDT Office Visit [facility] [place] [address] Anthony Moreno MD Bronchiectasis without complication (CMS/HCC) (Primary Dx); Chronic neck pain; Tinnitus of both ears; Overweight (BMI 25.0-29.9); Dietary counseling; Exercise counseling; Acquired hypothyroidism; Hypersomnolence; Preventative health care 10/19/2024 Travel 10/18/2024 Telephone [facility] [place] [address] Anthony Moreno MD Chart Prep 10/18/2024 Refill [facility] [place] [address] Anthony Moreno MD 10/11/2024 Patient Outreach [facility] [address] [place] [address] Anthony Moreno MD Pre-visit Planning (SDOH was already completed ) from Last 3 Months Immunizations Immunization Administration [...] Description 01/06/2025 10:00 AM EDT Office Visit [facility] ADULT DENTAL [address] [place] [address] Ev, Yary [address] [place] [address] Health Maintenance Due Date Last Done Comments [...] 1-dose series) 2023 COVID-19 Vaccine (3 - 2024- season) 2024 10/28/2020, 10/06/2020 Influenza Vaccine (#1) [...] Tobacco Screening 10/19/2025 10/19/2024 Mammogram 04/09/2026 04/09/2024, 03/15, 03/16/2024, Additional history [...] 10/19/2024 2 :36 PM EDT Acquired hypothyroidism PROPHYLAXIS - ADULT Routine 07/05/2024 1 0:00 [...] Free T4 0.80 0.32 - 4.0 uIU/mL [facility] Blood Venous blood specimen / Unknown 10/19/2024 2:36 PM EDT 10/19/2024 5:13 PM EDT us Anthony Muller MD LAB BLOOD ORDERABLES Final Result [facility] [address] [place] [address] [phone] * BI US Breast Limited Bilateral (04/09/2024 10:45 AM EST) Anatomical Region Laterality Modality Breast Bilateral Ultrasound 04/09/2024 10:4 5 AM EST Narrative 04/09/2024 11:01 AM EST [facility] [address] [place] [address] Ultrasound Report Signed Patient: Steffanie Esquivel MR#: [id number] : 1965 Acct:[id number] Age/Sex: 59 / F ADM Date: 04/09/24 Loc: HO.MAMMO Attending Dr: Anthony Blevins MD Ordering Physician: Anthony Blevins MD Date of Service: 04/09/24 Procedure(s): US breast BI limited mamm only Accession Number(s): [id number] cc: Anthony Blevins MD EXAMINATION: MM DIAGNOSTIC [...] 04/09/24 1058 DD/ 1045 TD/TT: 04/09/24 1057 Bark Peeler: Procedure Note Donotuseinterpreter, Image - 04/09/2024 [facility] [address] [place], [place] [address] Ultrasound Report Signed Patient: Steffanie EsquivelMR#: [id number] : 1965Acct:[id number] Age/Sex: 59 / FADM Date: 04/09/24 Loc: HO.MAMMO Attending Dr: Anthony Blevins MD Ordering Physician: Anthony Blevins MD Date of Service: 04/09/24 Procedure(s): US breast BI limited mamm only Accession Number(s): [id number] cc: Anthony Blevins MD EXAMINATION: MM DIAGNOSTIC [...] Priya Self DO 04/09/2024 10:58 AM EST RP Dictated By: Priya Self DO Signed By: <Electronically signed by Priya Self DO in OV> 04/09/24 1058 DD/ 1045 TD/TT: 04/09/24 1057 Bark Peeler: us Anthony Muller MD IMG US PROCEDURES Fin al Result * Pap Smear (03/17/2024 9:55 AM EST) 03/17/2024 9:55 AM EST 03/18/2024 8:20 AM EST [facility] - 03/24/2024 10:20 AM EST ----- ------- Name: Steffanie Esquivel Age/Sex: 59/F : 1965 Unit#: [id number] Attend Dr: Gary Lovett MD Re03/17/24 Status: DEP REF Location: HO.LNP Disch: ----- ------- SPEC : [id number] RECD: 03/18/24 STATUS: THEA PASCUAL NUM: [id number] RAIMUNDO: 03/17/[address] [facility] [address]: Gary Lovett MD ENTERED: 03/18/24 SP [...] Received ThinPrep-Cervical Copies To: Anthony Blevins MD [facility] [address] [place], [place] [phone] Gary Lovett MD [facility] [address] [place] [address] ----- ------- Signed (signature on file) RYAN Candelario (ASCP) 03/24/24 1020 ----- ------- END OF REPORT us Generic External Data Provider LAB CYTOLOGY JHONNY MARTINES Final Result [facility] [address] [place], [place] [phone] * Colonoscopy (03/09/2024 9:14 AM EST) Colonoscopy Normal Normal 03/09/2024 9:14 AM EST Historical Provider HEALTH MAINTENANCE Final Result * Hepatitis C Antibody with Reflex to HCV, RNA, Quantitative, Real-Time PCR (01/27/2023 1:47 PM EDT) Pathologist [facility] Hepatitis C Antibody Nonreactive Nonreactive [facility] Comment:Antibodies to HCV no t detected; does not exclude early acuteHCV infection. Blood Venous blood specimen / Unknown 01/27/2023 1:47 PM EDT 01/27/2023 1:47 PM EDT Anthony Muller MD LAB BLOOD ORDERABLES Final Result Performing Organization Address City/[facility]/ZIP Co de Phone Number [facility] [address] [place] [address] [phone] * HPV E6/E7 RFLX MIKAL 16 18/45 (04/03/2021 3:12 PM EST) Pathologist [facility] HPV mRNA E6/E7 rflx Not Detected Not Detected [facility] Comment: Methodology: Sewer Pipe Sorter-Mediated Amplification This assay detects E6/E7 viral messenger RNA (mRNA) from 14 high-risk HPV types (16,18,31,33,35,39,45,51,52,56,58,59,66,68). The analytical performance characteristics of this assay have been determined by [employer]. The modifications have not been cleared or approved by the FDA. This assay has been validated pursuant to the CLIA regulations and is used for clinical purposes. For additional information, please refer to http://education.[employer].Gastrofy/faq/SRR029d2 (This link if provided for information/ educational purposes only.) THIS TEST WAS PERFORMED AT: [facility] [address] [place] [address] [address]LO[address],[place] [address] FABRICIO SINHA MD 04/03/2021 3:12 PM EST Gary Lovett MD HISTORICAL/NON ORDERABLE LABS Fi nal Result [facility] [address] [place] [phone], [place] from Last 3 Months or Most Recently Relevant to Health Maintenance Insurance [facility] STAND ADULT [facility] STANDARD DENTAL-[facility] [place] [address] Care Teams Green House Manager Relationship Specialty Start Date End Date Anthony Moreno MD [address] [place] [phone] PCP - General Internal Medicine 03/07/14
--- OUTSIDE RECORDS SUMMARY | 2024-12-22 15:51 | XMS_ITS | Encounter Summary ---
Author Organization [employer] [facility] Address [address] [place] [address] 7t [place] [address] Care Team Providers Care Director Of Customer Service Name Role Phone Anthony Moreno MD Primary Care Provide r Encounter Details Date Type Department Care Team ([facility] Contact Info) Description 08/22/2022 Abstract [facility] MEDICINE [address] [place] [address] Anthony Moreno MD [address] [place], [place] [phone] Social History Tobacco Use Types Packs/Day Years [...] Description 01/06/2025 10:00 AM EDT Office Visit [facility] ADULT DENTAL [address] [place] [address] Yary Carreno [address] [place] [address] documented as of this encounter Procedures Procedure Name Priority Date/Time Associated Diagnosis Comments COLONOSCOPY Routine 08/17/2013 documented in this encounter Results * Colonoscopy (08/17/2013) Colonoscopy Normal Normal 08/17/2013 Aidee Benedict - 08/17/2013 2:57 PM EDT Recommended 10 year follow up ( [facility] ) Historical Provider HEALTH MAINTENANCE Final Result documented in this encounter Visit Diagnoses Not on filedocumented in this encounter Care Teams Director Of Customer Service Relationship Specialty Start Date End Date Anthony Moreno MD [address] [place] [address] PCP - General Internal Medicine 03/07/14 documented as of this encounter
--- OUTSIDE RECORDS SUMMARY | 2024-12-22 15:51 | XMS_ITS | Encounter Summary ---
Author Organization [employer] Address 75 [facility] 7t [place] [address] Care Team Providers Care Provider Scribe Name Role Phone Anthony Moreno MD Primary Care Provide r Reason for Visit * Reason Onset Date Comments Call Back Request 07/08/2024 Encounter Details Date Type Department Care Team ([facility] Contact Info) Description 07/08/2024 Telephone [facility] MEDICINE [address] [place], [place] [phone] Anthony Moreno MD [address] [place] [address] Call Back Request Social History Tobacco Use [...] to get done. Please return call to [phone] documented in this encounter Plan of Treatment Upcoming Encounters Date Type Department Care Team (Late st Contact Info) Description 01/06/2025 10:00 AM EDT Office Visit [facility] ADULT DENTAL [address] [place] [address] Ev, Yary [address] [place] [address] documented as of this encounter Visit Diagnoses Not on filedocumented in this encounter Additional Health Concerns Assessment Noted Time PHQ-9 Depression Total Score: 5 06/18/19 25 2:26 PM EST documented as of this encounter Care Teams Provider Scribe Relationship Specialty Start Date End Date Anthony Moreno MD [address] [place] [address] PCP - General Internal Medicine 03/07/14 documented as of this encounter
--- OUTSIDE RECORDS SUMMARY | 2024-12-22 15:51 | XMS_ITS | Encounter Summary ---
Author Organization [employer] [facility] Address [address] [place] [address] 7[address] [place] [address] Care Team Providers Care Director Of Resource Development Name Role Phone Anthony Moreno MD Primary Care Provide r Encounter Details Date Type Department Care Team (Late st Contact Info) Description 03/19/2022 Abstract [facility] MEDICINE [address] [place] [address] ProviderRick MD Social History Tobacco Use Types [...] Description 01/06/2025 10:00 AM EDT Office Visit [facility] ADULT DENTAL [address] [place] [address] Ev, Yary [address] [place] [address] documented as of this encounter Visit Diagnoses Not on filedocumented in this encounter Care Teams Director Of Resource Development Relationship Specialty Start Date End Date Anthony Moreno MD [address] [place] [address] PCP - General Internal Medicine 03/07/14 documented as of this encounter
--- OUTSIDE RECORDS SUMMARY | 2024-12-22 15:51 | XMS_ITS | Encounter Summary ---
Author Organization [employer] Address [address] [facility] 7t [place] [address] Care Team Providers Care Business Support Coordinator Name Role Phone Anthony Moreno MD Primary Care Provide r Reason for Visit * Reason Comments Med Refill Encounter Details Date Type Department Care Team ([facility] Contact Info) Description 05/14/2023 Refill [facility] MEDICINE [address] [place], [place] [phone] Anthony Moreno MD [address] [place], [place] [phone] Social History Tobacco Use Types Packs/Day Years [...] Description 01/06/2025 10:00 AM EDT Office Visit [facility] ADULT DENTAL [address] [place] [address] Ev, Yary [address] [place] [address] documented as of this encounter Visit Diagnoses Not on filedocumented in this encounter Care Teams Business Support Coordinator Relationship Specialty Start Date End Date Anthony Moreno MD [address] [place] [address] PCP - General Internal Medicine 03/07/14 documented as of this encounter
--- OUTSIDE RECORDS SUMMARY | 2024-12-22 15:51 | XMS_ITS | Clinical Summary ---
Author Organization [facility] Address [address] [place] [address] Phone Care Team Providers Care Assembler Adjuster Name Role Phone Anthony Blevins MD Primary [...] topic Insurance MEDICAID - [place] Care Teams Assembler Adjuster Relationship Specialty Start Date End Date Anthony Blevins MD [address] [place] [address] [place] [phone] PCP - General 01/12/24
--- OUTSIDE RECORDS SUMMARY | 2024-12-22 15:51 | XMS_ITS | Encounter Summary ---
Author Organization [facility] Address [address] [facility] 7t [place] [address] Care Team Providers Care Supervisor Modern Languages Name Role Phone Anthony Moreno MD Primary Care Provide r Encounter Details Date Type Department Care Team (Late Contact Info) Description 03/29/[address] [facility] MEDICINE [address] [place], [place] [phone] Anthony Moreno MD [address] [place], [place] [phone] Social History Tobacco Use Types Packs/Day Years [...] 01/06/2025 10:00 AM EDT Office Visit [facility] ADULT DENTAL [address] [place], [place] [phone] Jeffery Carrenoaris [address] [place], [place] [phone] documented as of this encounter Procedures Procedure Name Priority Date/Time Associated Diagnosis Comments BI MAMMOGRAM DIAGNOSTIC BILATERAL Routine 03/11/2022 3:54 PM EST documented in this encounter Results * (ABNORMAL) BI Mammogram Diagnostic Bilateral (03/11/2022 3:54 PM EST) Anatomical Region Laterality Modality Breast Bilateral Mammography Narrative 03/11/2022 3:54 PM EST Birads 3 - recommended bilateral diagnostic at time of annual exam in 12 months ([facility] ) Historical Provider MD HARP BI PROCEDURES Final R esult documented in this encounter Visit Diagnoses Not on filedocumented in this encounter Care Teams Supervisor Modern Languages Relationship Specialty Start Date End Date Anthony Moreno MD [address] [place] [address] PCP - General Internal Medicine 03/07/14 documented as of this encounter
--- OUTSIDE RECORDS SUMMARY | 2024-12-22 15:51 | XMS_ITS | Encounter Summary ---
Author Organization [employer] Address [address] [facility] 7t [place] [address] Care Team Providers Care Livestock Dealer Name Role Phone Anthony Moreno MD Primary Care Provide r Encounter Details Date Type Department Care Team ([facility] st Contact Info) Description 05/10/2024 Telephone [facility] MEDICINE [address] [place], [place] [phone] Anthony Moreno MD [address] [place], [place] [phone] Social History Tobacco Use Types Packs/Day Years [...] Description 01/06/2025 10:00 AM EDT Office Visit [facility] ADULT DENTAL [address] [place] [address] Ev, Yary [address] [place] [address] documented as of this encounter Visit Diagnoses Not on filedocumented in this encounter Additional Health Concerns Assessment Noted Time PHQ-9 Depression Total Score: 1 08/19/19 24 1:27 PM EDT documented as of this encounter Care Teams Livestock Dealer Relationship Specialty Start Date End Date Anthony Moreno MD [address] [place] [address] PCP - General Internal Medicine 03/07/14 documented as of this encounter
--- OUTSIDE RECORDS SUMMARY | 2024-12-22 15:51 | XMS_ITS | Encounter Summary ---
Author Organization [employer] Address [address] [facility] 7t [place] [address] Care Team Providers Care Product Safety Expert Name Role Phone Anthony Moreno MD Primary Care Provide r Reason for Visit * Reason Onset Date Comments Clarification 03/18/2023 Encounter Details Date Type Department Care Team ([facility] Contact Info) Description 03/18/2023 Telephone [facility] [address] [place], [place] [phone] Anthony Moreno MD [address] [place], [place] [phone] Clarification Social History Tobacco Use Types Packs/Day [...] t he electric, gas, oil or water Disconnect threatened to shut off services in your [...] 4:50 PM EST Tc from Donna From [facility] pharmacy calling in for a Clarification on script for: chlorhexidine (Peridex) 0.12 % solution. Donna states medication instruction does not specify how many times a day pt should take solution. Please contact Donna @ [phone] documented in this encounter Plan of Treatment Upcoming Encounters Date Type Department Care Team (Late st Contact Info) Description 01/06/2025 10:00 AM EDT Office Visit [facility] [address] [place] [address] Ev, Yary [address] [place] [address] documented as of this encounter Visit Diagnoses Not on filedocumented in this encounter Care Teams Product Safety Expert Relationship Specialty Start Date End Date Anthony Moreno MD [address] [place] [address] PCP - General Internal Medicine 03/07/14 documented as of this encounter
== END 2024-12-22 13:47 | disposition home or self-care (01) ==
LOC: HO.RHES 12:51
PROVIDERS: PCP Internal Medicine; Visit Provider Student in an Organized Health Care Education/Training Program
DX: M43.02 Spondylolysis, cervical region (principal)
CPT/HCPCS: 99213

== ENCOUNTER → 2024-12-22 12:50 | Outpatient (BNVA) | payer MEDICAID, SELFPAY | PROVIDERS: PCP Internal Medicine; Visit Provider Student in an Organized Health Care Education/Training Program | DX: M43.02 Spondylolysis, cervical region (principal); Z79.899 Other long term (current) drug therapy | CPT/HCPCS: 99212 ==

== ENCOUNTER 2025-02-01 12:22 | Outpatient (AMB) | payer MEDICAID, SELFPAY ==
--- NOTE | 2025-02-01 12:30 | MHC.OFFVIS ---
Vital Signs 02/01/25 12:35 Height 5 ft 1 in Weight 148 lb 9.465 oz BMI 28.1 BP 137/74 Blood Pressure Location Lt brachial Position Sitting Pulse 64 Intake Visit Reasons: 3 mo EPI pain, IBS-D Intake Note: Steffanie returns to in office follow up of epigastric pain and IBS-D. Electronics Maintenance Technician Required: Yes Electronics Maintenance Technician Language: Macedonian Accompanied by: Self / Same As Patient Allergies cholestyramine Allergy (Intermediate, Verified 02/01/25 12:40) itching HPI HPI 3 mo EPI pain, IBS-D: Details: Assessment & Plan (1) GERD (gastroesophageal reflux disease): Code(s): K21.9 - Gastro-esophageal reflux disease without esophagitis Category: Medical (2) Bile reflux gastritis: Code(s): K29.60 - Other gastritis without bleeding Category: Medical (3) Irritable bowel syndrome with diarrhea: Code(s): K58.0 - Irritable bowel syndrome with diarrhea Category: Medical (4) Upper abdominal pain: Code(s): R10.10 - Upper abdominal pain, unspecified Category: Medical Plan Macedonian #[id number] Ana She is on Dexilant, dicyclomine, Viberzi, Carafate, and simethicone. She felt that she could not swallow the carafate, even if dissolved in juice as it was ethan. We can not use cholestyramine because she had itching r/t this. With this, I really have no more tools to address her bile gastritis. Maybe the EGD will be helpful. She has not been getting her Viberzi, it appears she may just need a PA renewal. The only some lipase study show absolutely no signs of pancreatitis relative to the Viberzi as a contributing factor. ROV 3 mos. EGD BIOPSY TODAYS VISIT Macedonian #[id number] [facility] Medical History (Updated 02/01/25 @ 13:05 by HOLA Gresham) Generalized abdominal pain Upper abdominal pain Tinnitus of both ears Chronic leukopenia BRBPR (bright red blood per rectum) Dental calculus Bleeding gums Urge incontinence of urine Acute migraine Hypothyroidism (acquired) Back pain Cough Vaginal discharge Pre-op examination Preop pulmonary/respiratory exam Well woman exam 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 GERD (gastroesophageal reflux disease) Anxiety Depression Fibromyalgia Surgical History Hx of surgical procedure (~02/19/24) Hx of elbow surgery History of colonoscopy (03/09/24) History of bilateral tubal ligation History of cholecystectomy Family History Family/Other Cancer Social History Household Members: None Housing: Apartment Are you a primary manager long term care to a significant other at home: No Do you presently have visiting nurse or other home services: Yes ([employer] 1 hour/day) Alcohol intake: current Alcohol intake frequency: does not drink Patient Tobacco Use Status: Never used Tobacco Advance Directives Date on File: 01/19/20 Current occupational status: disabled Sexual orientation: Straight/Heterosexual Gender identity: Female Female Reproductive History Menstrual Age of Menarche: 7 Review of Systems Const Denies fatigue, Denies fever(s), Denies night sweats, Denies poor appetite and Denies weight loss Eyes Details: Glasses Reports requires corrective lenses ENT Reports Normal hearing present, Denies dental pain, Denies dysphagia, Denies hearing loss, Denies mouth pain, Denies odynophagia, Denies throat swelling, Denies tongue swelling and Reports other (Dentition adequate) Card Reports no additional complaints Resp Reports no additional complaints GI Details: Denies abdominal pain, Denies melena, Reports bloating, Denies hematochezia, Denies constipation, Denies GI cramping, Denies dysphagia, Denies excessive flatus, Denies early satiety, Reports heartburn, Reports diarrhea, Denies nausea, Denies odynophagia, Denies vomiting and Denies hematemesis Skin/Breast Denies pruritus, Denies lesions, Denies rash and Denies jaundice Neuro Reports Normal hearing present and Denies Abnormal speech present Endo Denies fatigue Aller/Immun Denies throat swelling and Denies tongue swelling Physical Exam Vital Signs: Last Vital Signs Pulse 64 02/01/25 12:35 BP 137/74 02/01/25 12:35 BMI result Body Mass Index 28.1 Const General: cooperative, no acute distress, well developed and well groomed Nutritional Appearance: well nourished and overweight Orientation/consciousness: oriented to person, oriented to place and oriented to time Limitations: language barrier HEENT Head: Yes normocephalic and Yes atraumatic Eyes General: appearance normal, both eyes and all related structures Pupils: Equal, round and reactive pupils present Neck Neck: Yes normal visual inspection and Yes no lymphadenopathy Thyroid: Thyroid normal Resp Effort & Inspection: normal respiratory effort and able to speak in complete sentences Auscultation: clear to auscultation bilaterally Cardio Rate: regular rate Rhythm: regular rhythm Heart sounds: Normal, physiologic split S2 sound present Peripheral pulses: radial pulses present and posterior tibial pulses present GI Inspection: No distended, No Abdominal panniculus present and Yes obesity Palpation (GI): Soft to palpation, nontender, no guarding, not rigid and No hepatosplenomegaly present Percussion: Yes normal to percussion Auscultation: normal bowel sounds Rectal Exam - Female: deferred Skin General skin exam: no rashes or lesions noted, turgor normal, skin not dry, no jaundice, No spider nevi and no striae Rashes: no rashes Nails: normal Neuro General: oriented to person, oriented to place and oriented to time Cranial nerves: Yes Equal, round and reactive pupils present and Yes Normal hearing present Speech: No Abnormal speech present Extrem General: Yes normal to inspection, No clubbing, No cyanosis and No edema Psych Appearance: grossly normal and well kempt Mental Status: mental status grossly normal Speech and movement: Normal speech and movement present Affect: normal affect Attitude: cooperative Thought process: Normal thought process present and not confabulating Thought content: Normal thought content present Insight: Fair insight present (Psych) Judgement: Fair judgement present (Psych) Assessment & Plan Assessment & Plan (1) Irritable bowel syndrome with diarrhea: Code(s): K58.0 - Irritable bowel syndrome with diarrhea Category: Medical (2) GERD (gastroesophageal reflux disease): Code(s): K21.9 - Gastro-esophageal reflux disease without esophagitis Category: Medical (3) Bile reflux gastritis: Code(s): K29.60 - Other gastritis without bleeding Category: Medical Plan Macedonian # She is on Dexilant, dicyclomine, Viberzi, <del>Carafate,</del> and simethicone. She is supposed to be on Viberzi. She confirms that she did receive the Viberzi and she feels that it is now controlling her diarrhea well. However, about 3 times a month she will also use Imodium when she gets what she calls ?yellow stools?. I think this is probably bile irritation that we have not been able to control in the past because she has not tolerate it either cholestyramine or sucralfate. She was educated to be where of taking too much Imodium with the Viberzi as this could cause a small-bowel obstruction. Return office visit in 6 months EGD BIOPSY Orders: Referrals GI Procedure Notification K29.60 - Other gastritis without bleeding Medications: New loperamide 2 mg PO Q6H PRN 60 caps 6RF loose stool K58.0 - Irritable bowel syndrome with diarrhea Refilled simethicone 180 mg PO QID 120 caps 0RF dexlansoprazole (Dexilant) 60 mg PO DAILY 90 caps 2RF 90 days K21.9 - Gastro-esophageal reflux disease without esophagitis dicyclomine 20 mg PO QID 120 tabs 6RF 30 days K58.9 - Irritable bowel syndrome, unspecified eluxadoline (Viberzi) must administer with a meal/food 100 mg PO BID 60 tabs 5RF K58.0 - Irritable bowel syndrome with diarrhea Discontinued sucralfate (Carafate) Discontinued Reason: Doctor's Order 1 g PO QNOON 30 tabs 6RF K29.60 - Other gastritis without bleeding Coding Level of Care Code Est Pt Level 3 (18616) Diagnoses Irritable bowel syndrome with diarrhea K58.0 GERD (gastroesophageal reflux disease) K21.9 Bile reflux gastritis K29.60
[2025-02-01 12:35] VITALS: BP 137/74; PULSE 64; BMI 28.1
--- OUTSIDE RECORDS SUMMARY | 2025-02-01 15:58 | XMS_ITS | Data Portability ---
Author Organization [place] - [facility], Allergy Address [address] [address] Care Team Providers Care Bat Boy/Girl Name Role Phone SOPHIE KIM Primary Care [...] etiology, but patient declined. She will continue [id number]-[id number] anti-inflammator ies as needed. Recommend considering medical-grade mouth guard through their dentist if symptoms persist despite supportive management. [email or web address] Not available 09/22/2024 16:31:52 11/23/2024 11/23/2024 59yo yoruba-speaking female with SNHL, TMJ and history of migrainous vertigo present for hearing evaluation. Her bilateral tinnitus is stable. No new hearing concerns. Otologic examination demonstrates generally thickened TMs without middle ear effusion. EACs are normal to inspection. Exam notable for significant right sided preauricular pain, which we discussed is consistent with TMJ muscular dysfunction. Audiometric testing demonstrates stable mild sloping to moderate sensorineural hearing loss. Word recognition is excellent. Tympanometry is type B, most likely due to thickened TMs. Patient is medically cleared for bilateral amplification. Discussed the benefits of amplification including but not limited to improving social communication, masking tinnitus, delaying dementia, and reducing likelihood of depression and anxiety. She is not interested in hearing aids, and will reevaluate in 1 year. Recommend continued supportive measures and physical therapy for TMJ. [email or web address] Not available 11/23/2024 12:05:04 Plan of Treatment Reminders Order Date Submit Date Provider Last Modified By Organization Details Last Modified Time Details Appointments None recorded. Lab None recorded. Referral None recorded. Procedures None recorded. Surgeries None recorded. Imaging MRI, brain + internal auditory canal, w/wo contrast - MRI, BRAIN + INTERNAL AUDITORY CANAL, W/WO CONTRAST 2023 024 [facility] ([facility] [address] [facility], [place], [address], 12:39:15 Medication Orders None recorded. Patient TargetsNo [...] contr ast No observ ation record ed. [email or web address] [facility] [address] [place], [address], 09/24/2023 15:40:17 12/03/19 24 09/04/2023 imagi ng/di agnos tic resul t No observ ation record ed. [email or web address] Not Available 20:41:55 11/24/19 25 audio gram No observ ation record ed. BARCODE Not Available 2024 14:26:28 Result Notes None recorded. 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 , including 'globus hystericu s'; Note: Date Diagnosed : 8 3:21 PM (F45.8) Not Available [facility] 4 03:26:41 Gastroeso phageal reflux disease without esophagit is 976363617 Active 2017 Gastro-es ophageal reflux disease without esophagit is; Note: Date Diagnosed : 8 3:24 PM (K21.9) Not Available [facility] 4 03:26:41 Dysphagia 31214654 Active 2017 Other dysphagia ; Note: Date Diagnosed : 8 3:21 PM (R13.19) Not Available [facility] 4 03:26:41 Sensorine ural hearing loss of bilateral ears 886782612 Active 2023 MAYO TADEO, AUD [address] [facility],[place] [address], [place], [address] , [place] - [facility] 4 11:10:51 Vertigo 384727354 Active 2023 Nadia gomez, LUIS - [facility] 4 11:46:48 Vestibula r migraine 740147749 Active 2023 Nadiaeitan gomez, LUIS - [facility] 4 15:38:23 Bilateral earache 575187774 Active 2023 Nadiauhbert Blood null, [place] - [facility] 4 11:22:43 Temporoma ndibular joint disorder 59617232 Active 2023 Nadia gomez, LUIS - [facility] 4 11:23:02 Sensorine ural hearing loss of bilateral ears 907765002 Active 2024 MAYO TADEO, AUD [address] [facility],[address], [place], [address] , [facility] 5 11:02:32 Bilateral tinnitus 86798499366 02 Active 2024 MARII MARIE PA-C [address] [facility] [address], [place], [address] , [facility] 5 11:40:47 Problem Notes None recorded. Procedures Surgical History Date Name Laterality Status Provider Name and Address Organization Details Recorded Time 5 Air & Speech Audio with Tymps - 24070, 90060 & 41748 completed MAYO TADEO, AUD [address] [facility] [address], [place], [address], [facility] 11/23/2024 11:02:27 4 Comp Audio with Tymps & Reflexes - 86463 & 98724 completed MAYO [employer], AUD [address] [facility] [address], [place], [address], [facility] 09/04/2023 11:10:42 Imaging Results None recorded. Procedure [...] MOUTH EVERY 8 HOURS NEEDED FOR PAIN 11/23 completed Not Available Not Available Not Available acetamino phen ER 650 mg tablet,ex tended release 11/23 completed Not Available Not Available Not Available levothyro xine 75 mcg tablet 11/25 completed Not Available Not Available Not Available levothyro xine 100 mcg tablet 11/23 completed Medicati on ID: [id number] D uration Value: 30 Brand Name: levothyr [...] AND 2 TABLETS AT 5PM WITH WATER 11/23 completed Not Available Not Available Not Available [...] Available Not Available No t Available Vitals Date Recorded Body height Body mass index (BMI) Body weight Provider Name and Address Organization Details Last Updated DateTime 11/23/2024 154.94 cm 27.4 kg/m2 36896.89 g Liat Awan [facility] 11/23/2024 11:14:48 Social History None recorded. Functional Status None [...] Diagnosis SNOMED-CT Code Diagnosis ICD10 Code Diagnosis IMO Codes Diagnosis Note [id number] NADIA BLOOD PA-C [facility] [address] [address] 09/04/2023 10:26:40 09/04/2023 12:03:25 Sensorineural hearing loss of bilateral ears 560730252 H90.3 Audiologic al evaluation results:Ri ght ear:Normal [...] 1kHz, AD, and contra 1kHz, . Vertigo 938397603 R42 Associated pre-syncop e and arm weakness Vestibular migraine 2322 [address]5428 H81.8X9 [id number] NADIA BLOOD PA-C [facility] [address] [address] 11/26/2023 10:49:19 11/26/2023 11:27:05 Bilateral earache 265391464 H92.03 Temporoman dibular joint disorder 42587809 M26.609 Vestibular migraine 2322 55064 H81.8X9 [id number] MARII MARIE PA-C [facility] [address] [address] 09/22/2024 13:50:12 09/22/2024 14:28:42 Bilateral earache 886826640 H92.03 Temporoman dibular joint disorder 34891957 M26.609 [id number] MARII MARIE PA-C [facility] [address] [address] 11/23/2024 10:43:43 11/23/2024 13:19:49 Sensorineural hearing loss of bilateral ears 754154212 H90.3 66602431 Audiologic al evaluation results: Mild to moderate sensorineu ral hearing loss with excellent word recognitio n, bilaterall y. Tympanomet ry: Right Ear:Type B Left Ear:Type B Temporoman dibular joint disorder 08301137 M26.609 Bilateral tinnitus 83039 95214 102 H93.13 553369 Today we discussed the pathophysi ology of tinnitus and the absence of consistent ly successful pharmacolo gic treatments . Recommend masking strategies to decrease awareness of the tinnitus, including using a white noise machine, [employer] tinnitus miguelina, music, or television . We discussed how exposure to loud noise can worsen tinnitus so I recommende d hearing protection . We also discussed other ways to potentiall y help reduce awareness of tinnitus including avoidance of caffeine, salty meals and NSAIDs. Health Concerns Section Related Observation LastModified by Organization Detai ls LastModified Time None Recorded Concern Status LastModified by Organization Details LastModified Time None Recorded Advance Directives Directive None Recorded Payers Insurance Date Sequence Insurance Name Policy Number Policy Abraham Covered Member ID Abraham Member ID Guarantor Name 12/22/2024 1 [place] [facility] Steffanie James [id number] Steffanie Benjamin Notes Date Note Type Note Provider Name and Address Organization Details Recorded Time 09/04/2023 text/html ROS as noted in the HPI 58 year old female presents for evaluation of ears and balance. [...] of salt and sugar in the diet. Nadia gomez [place] - [facility] 09/04/2023 15:39:50 11/26/2023 text/html ROS as noted in the HPI 58 year old female presents for follow up on vestibular migraine. [...] jaw pops and cracks. COLE PICKENS MD [address] [place] [address], [place], [address], [place] - [facility] 11/26/2023 13:04:47 09/22/2024 text/html ROS as noted in the [facility] 59yo female with TMJ and migrainous vertigo [...] No smoking history. COLE PICKENS MD [address] [facility],[address], [address], [facility] - [facility] 09/23/2024 07:48:44 11/23/2024 text/html ROS as noted in the HPI 59yo yoruba-speaking female with TMJ and history of migrainous vertigo present for hearing evaluation. Reports hearing is stable. Continues to endorse bilateral ringing tinnitus. Occasional swelling in front of her right ear despite TMJ supportive measures. She is currently undergoing physical therapy for TMJ dysfunction. Intermittent difficulty chewing hard textures. She did trial a soft food diet. MRI of the IACs 09/2023 was negative for retrocochlear pathology. She has been using flonase [facility] for chronic nasal congestion. JAYLEEN MIGUEL MD [address] [facility],[place] [address], [place], [address], [facility] 11/23/2024 20:50:14 OBGyn Episode No OBEpisode recorded.
--- OUTSIDE RECORDS SUMMARY | 2025-02-01 15:58 | XMS_ITS | Encounter Summary ---
Author Organization [employer] Address [address] [facility] 7t [place] [address] Care Team Providers Care Pay Station Attendant Name Role Phone Anthony Moreno MD Primary Care Provide r Encounter Details Date Type Department Care Team ([facility] st Contact Info) Description 05/10/2024 Telephone [facility] [address] [place], [place] [phone] Anthony Moreno MD [address] [place], [place] [phone] Social History Tobacco Use Types Packs/Day Years [...] Care Team (Late st Contact Info) Description 03/08/2025 11:15 AM EST Office Visit [facility] [address] [place] [address] Anthony Moreno MD [address] [place] [address] 07/07/2025 10:15 AM EDT Office Visit [facility]ULT [facility] [address] [place] [address] Ev, Yary [address] [place] [address] documented as of this encounter Visit Diagnoses Not on filedocumented in this encounter Additional Health Concerns Assessment Noted Time PHQ-9 Depression Total Score: 1 08/19/19 24 1:27 PM EDT documented as of this encounter Care Teams Pay Station Attendant Relationship Specialty Start Date End Date Anthony Moreno MD [address] [place] [address] PCP - General Internal Medicine 03/07/14 documented as of this encounter
--- OUTSIDE RECORDS SUMMARY | 2025-02-01 15:58 | XMS_ITS | Encounter Summary ---
Author Organization [employer] Address [address] [facility] 7t [place] [address] Care Team Providers Care Poultice Machine Operator Name Role Phone Anthony Moreno MD Primary Care Provide r Reason for Visit * Reason Comments Med Refill Encounter Details Date Type Department Care Team ([facility] Contact Info) Description 05/14/2023 Refill [facility] [address] [place], [place] [phone] Anthony Moreno MD [address] [place], [place] [phone] Social History Tobacco Use Types Packs/Day Years [...] Description 03/08/2025 11:15 AM EST Office Visit [facility] [address] [place] [address] Anthony Moreno MD [address] [place] [address] 07/07/2025 10:15 AM EDT Office Visit [facility] [address] [place] [address] Ev Yary [address] [place] [address] documented as of this encounter Visit Diagnoses Not on filedocumented in this encounter Care Teams Poultice Machine Operator Relationship Specialty Start Date End Date Anthony Moreno MD [address] [place] [address] PCP - General Internal Medicine 03/07/14 documented as of this encounter
--- OUTSIDE RECORDS SUMMARY | 2025-02-01 15:58 | XMS_ITS | Encounter Summary ---
Author Organization [employer] Address [address] [facility] 7t [place] [address] Care Team Providers Care Director Of Integrated Marketing Name Role Phone Anthony Moreno MD Primary Care Provide r Reason for Visit * Reason Onset Date Comments Clarification 03/18/2023 Encounter Details Date Type Department Care Team ([facility] Contact Info) Description 03/18/2023 Telephone [facility] [address] [place], [place] [phone] Anthony Moreno MD [address] [place], [place] [phone] Clarification Social History Tobacco Use Types Packs/Day [...] t he electric, gas, oil or water [employer] threatened to shut off services in your [...] encounter Miscellaneous Notes * Telephone Encounter - [place] Fracisco Catalan - 03/18/2023 4:50 PM EST Tc from Donna From [facility] pharmacy calling in for a Clarification on script for: chlorhexidine (Peridex) 0.12 % solution. Donna states medication instruction does not specify how many times a day pt should take solution. Please contact Donna @ [phone] documented in this encounter Plan of Treatment Upcoming Encounters Date Type Department Care Team (Late st Contact Info) Description 03/08/2025 11:15 AM EST Office Visit [facility] [address] [place] [address] Anthony Moreno MD [address] [place] [address] 07/07/2025 10:15 AM EDT Office Visit [facility] ADULT DENTAL [address] [place] [address] Ev, Yary [address] [place] [address] documented as of this encounter Visit Diagnoses Not on filedocumented in this encounter Care Teams Director Of Integrated Marketing Relationship Specialty Start Date End Date Anthony Moreno MD [address] [place] [address] PCP - General Internal Medicine 03/07/14 documented as of this encounter
--- OUTSIDE RECORDS SUMMARY | 2025-02-01 15:58 | XMS_ITS | Clinical Summary ---
Author Organization [employer] Address [address] [facility] 7t [place] [address] Care Team Providers Care Petroleum Refining Firer Name Role Phone Anthony Moreno MD Primary [...] MOUTH TWICE DAILY WITH MEALS 60 tablet 01/07/20 25 Active naproxen (Naprosyn) 500 MG tablet TAKE 1 TABLET BY MOUTH TWICE DAILY WITH MEALS 60 tablet 11/23/19 25 025 Discontinued Active Problems Problem Noted Date Diagnosed Date Arthralgia of bilateral temporomandibular joint 07/05/2024 Postmenopausal bleeding 06/17/2024 Assessment & Plan (06/17/2024 2:48 PM EST): Under the care of Dr gary Lovett BIOSTATISTICS MANAGER , last seen 05/2024 She is now [...] synovitis on exam. She refused injection from Agency Operator. She had surgery on the right elbow for nerve pain and wants to he the left hand done. Agency Operator recommended to continue with Tylenol and [...] of films were also faxed to patient's manager hris Assessment & Plan (01/06/2024 10:16 AM EDT): Evaluated by Rheumatology last seen 06/2023 recommended 1 year follow up Prior serology with negative SONYA, RF, and anti-CCP. Hand pain to the right is resolved, X-rays from 2022 showed osteoarthritis. No synovitis on exam. She refused injection from Agency Operator. She had surgery on the right elbow for nerve pain and wants to he the left hand done. Agency Operator recommended to continue with Tylenol and [...] a brain MRI and IACs at [facility] ) that was read as normal [...] etiology, but patient declined. She will continue akju-xya-iiskgdu anti-inflammatories as needed. Recommend considering medical-grade mouth guard through their dentist if symptoms persist despite supportive management. Assessment & Plan (11/27/2023 2:42 PM EDT): Pt with previous c/o tinnitus with associated vertigo, using Meclizine PRN prescribed by Neurology Evaluated by ENT ( [facility]) last seen 11/26/2023 They obtained a brain MRI and IACs at [facility] ) that was read as normal [...] neg, NILM, 04/03/[address] Lovett [facility] Colonoscopy: 08/17/2013 Dr. Smith. Repeat 03/09/2024 Dr Kaba at [facility] Normal aside from hemorrhoids, 10 yr follow up recommended Vaccines: Td: 06/07/2011 Declines booster Dexa scan: 05/25/2010. Assessment & Plan (06/17/2024 2:44 PM EST): Mammogram: 03/14/2023 Normal Pap Smear: HPV neg, NILM, 04/03/[address] Lovett [facility] Colonoscopy: 08/17/2013 Dr. Smith. Repeat 03/09/2024 Dr Kaba at [facility] Normal aside from hemorrhoids, 10 yr follow up recommended Vaccines: Td: 06/07/2011 Declines booster Dexa scan: 05/25/2010. Assessment & Plan (11/27/2023 2:55 PM EDT): Mammogram: 03/14/2023 Normal Pap Smear: HPV neg, NILM, 04/03/[address] Lovett [facility] Colonoscopy: 08/17/2013 Dr. Smith. Scheduled for Feb 2024 for a repeat. Vaccines: Td: 06/07/2011 Declines booster Dexa scan: 05/25/2010. Assessment & Plan (01/16/2023 3:01 PM EDT): Mammogram: 03/11/2022 BIRADS 3, due Feb 2023 Pap Smear: HPV neg, NILM, 04/03/[address] Lovett [facility] Colonoscopy: 08/17/2013 Dr. Smith Vaccines: Td: 06/07/2011 Dexa scan: 05/25/2010. Assessment & Plan (08/06/2022 2:21 PM EDT): Mammogram: 03/11/2022 BIRADS 3, due Feb 2023 Pap Smear: HPV neg, NILM, 04/03/[address] Lovett [facility] Colonoscopy: 08/17/2013 Dr. Smith Vaccines: Td: 06/07/2011 [...] stated that: CT of the C-spine confirms pyky-ab-nkndgazj degenerative disc disease at the C5-6 level [...] 05/03/2022 Dental calculus 05/03/2022 Bronchiectasis without complication (CMS/HCC) Assessment & Plan (10/19/2024 2:06 PM EDT): [...] to the fact thay they had no tuck pointer. Pt is requesting to have the toenail [...] a Hx of severe anxiety. follows at [facility]. On Klonopin 0.5 mg po qd prn for anxiety. Chronic low back pain 01/14/2012 Assessment & Plan (08/06/2022 2:24 PM EDT): follows at [facility], receives epidural injections intermittently. Fibromyalgia 01/14/2012 [...] 2.02 Used to follow with Endocrinology at [facility] Endocrinology. She is on Synthroid 88 mcg po daily. Plan: Continue with current regimen Pt tells me the Computer Animator already told her there was no need to f/u with them to only follow with us Plan: Repeat TSH Assessment & Plan (11/27/2023 2:44 PM EDT): Pt here for a f/u Most recent TSH 08/19/2023 normal at 2.02 Used to follow with Endocrinology at [facility] Endocrinology. She is on Synthroid 88 mcg po daily. Plan: Continue with current regimen Pt tells me the Computer Animator already told her there was no need to f/u with them to only follow with us Assessment & Plan (08/19/2023 1:26 PM EDT): Pt here for a f/u Most recent TSH 06/18/2023 elevated at 9.46 Used to follow with Endocrinology at [facility] Endocrinology. She is on Synthroid 88 mcg po daily. Plan: Will repeat and if still elevated will increase it to 100 mcg po daily Pt tells me the Computer Animator already told her there was no need to f/u with them to only follow with us Plan: continue current regimen. Will repeat TSH Assessment & Plan (06/17/2023 2:07 PM EST): Pt here for a f/u Most recent TSH 01/27/2023 elevated at 6.02 Used to follow with Endocrinology at [facility] Endocrinology. She was on Synthroid 75 mcg po daily. I increased it to 88 mcg po daily Pt tells me the Computer Animator already told her there was no need to f/u with them to only follow with us Plan: continue current regimen. Will repeat TSH Assessment & Plan (01/16/2023 3:46 PM EDT): Pt here for a f/u Most recent TSH 03/27/2022 wnl Used to follow with Endocrinology at [facility] Endocrinology. She is currently on Synthroid 75 mcg po daily. Pt tells me the Computer Animator already told her there was no need to f/u with them to only follow with us Plan: continue current regimen. Will repeat TSH Assessment & Plan (08/06/2022 2:27 PM EDT): Pt here for a f/u Most recent TSH 03/27/2022 wnl Used to follow with Endocrinology at [facility] Endocrinology. She is currently on Synthroid 75 mcg po daily. Pt tells me the Computer Animator already told her there was no need [...] Encounters Date Type Department Care Team Description 01/06/2025 10:00 AM EDT Office Visit [facility] [address] [facility] [place] [address] Yary Carreno Dental calculus (Primary Dx) 01/05/2025 Refill [facility] [address] [place] [address] Candi Castañeda MD 12/27/2024 Telephone [facility] [address] [facility] [place] [address] Anthony Moreno MD November recall 12/14/2024 Orders Only [facility] [place] [address] Anthony Moreno MD Varicose veins of both lower extremities, unspecified whether complicated (Primary Dx) 12/02/2024 Telephone [facility] [address] [place] [address] Anthony Moreno MD Referral 11/20/2024 Refill [facility] [address] [place] [address] Anthony Moreno MD from Last 3 Months Immunizations Immunization Administration [...] your housing situation today? I have malachi calos 01/27/[address] you li [...] Answer Date Recorded Internet Access Q1 Yes 01/06/2025 Internet Access Q2 Not on file 01/06/2025 Comments Unknown Sex and Gender Information Value Date Recorded Sex Assigned at Female 02/11/2022 10:14 AM EDT Legal Sex Female 10:14 AM EDT Gender Identity Female 02/11/2022 10:14 AM EDT Sexual Orientation Choose not to disclose 2021 10:14 AM EDT Last Filed Vital Signs Vital Sign Reading Time Taken Comments Blood Pressure 130/76 01/06/2025 9:43 AM EDT Pulse 61 10/19/2024 2:11 PM EDT [...] Description 03/08/2025 11:15 AM EST Office Visit [facility] [address] [place] [address] Anthony Moreno MD [address] [place] [address] 07/07/2025 10:15 AM EDT Office Visit [facility] [address] [place] [address] Ev, Yary [address] [place] [address] Health Maintenance Due Date Last Done Comments [...] Dental Oral Exam 01/06/2025 07/05/2024, 08/2022, 05/03/2022 Alcohol/Substance Use Screening 03/02/2025 03/02/2024 Disability Screening 03/02/2025 03/02/2024 SDOH Screening 06/08/2025 06/08/2024 Depression Screening 06/17/2025 06/17/2024, 06/18/19 Dental X-Ray: Bitewings 07/06/2025 07/06/19, 01/31/2023, 05/03/2022 Dental Prophylaxis 07/07/2025 01/06/2025, 0 07/05/2024, 01/05/2024, Additional history exists DTaP/Tdap/Td Vaccines (1 - Tdap) 08/05/2025 06/07/2011, 07/19/1997 Postponed from 06/08/2011 (Patient Refused) Tobacco Screening 01/06/2026 01/06/2025 Mammogram 04/09/2026 04/09/2024, 1210/2023, 03/16/2024, Additional history [...] Procedure Name Priority Date/Time Associated Diagnosis Comments CASE PRESENTATION, DETAILED AND EXTENSIVE TREATMENT PLANNING Routine 01/06/2025 10:00 AM EDT Dental calculus ORAL HYGIENE INSTRUCTIONS Routine 01/06/2025 10:00 AM EDT Dental calculus PROPHYLAXIS - ADULT Routine 01/06/2025 1 0:00 AM EDT Dental calculus 9 PARTIAL DENTURE - RESIN Routine 01/06/2025 12:00 AM EDT INTRAORAL - COMPLETE SERIES OF RADIOGRAPHIC IMAGES [...] Recently Relevant to Health Maintenance Results * BI US Breast Limited Bilateral (04/09/2024 10:45 AM EST) Anatomical Region Laterality Modality Breast Bilateral Ultrasound 04/09/2024 10:4 5 AM EST Narrative 04/09/2024 11:01 AM EST [facility] [address] [place] [address] Ultrasound Report Signed Patient: Steffanie Esquivel MR#: [id number] : 1965 Acct:[id number] Age/Sex: 59 / F ADM Date: 04/09/24 Loc: STEPHANIE Attending Dr: Anthony Blevins MD Ordering Physician: Anthony Blevins MD Date of Service: 04/09/24 Procedure(s): US breast BI limited mamm only Accession Number(s): [id number] cc: Anthony Blevins MD EXAMINATION: MM DIAGNOSTIC [...] 04/09/24 1058 DD/ 1045 TD/TT: 04/09/24 1057 Hl7 Interface Developer: Procedure Note Donotuseinterpreter, Image - 04/09/2024 [facility] [address] [place] [address] Ultrasound Report Signed Patient: Steffanie EsquivelMR#: [id number] : 1965Acct:[id number] Age/Sex: 59 / FADM Date: 04/09/24 Loc: HO.MAMMO Attending Dr: Anthony Blevins MD Ordering Physician: Anthony Blevins MD Date of Service: 04/09/24 Procedure(s): US breast BI limited mamm only Accession Number(s): [id number] cc: Anthony Blevins MD EXAMINATION: MM DIAGNOSTIC [...] 04/09/24 1058 DD/ 1045 TD/TT: 04/09/24 1057 Hl7 Interface Developer: Anthony Muller MD IMG US PROCEDURES Fin al Result * Pap Smear (03/17/2024 9:55 AM EST) 03/17/2024 9:55 AM EST 03/18/2024 8:20 AM EST [facility] - 03/24/2024 10:20 AM EST ----- ------- Name: Sourav JamesSteffanie Age/Sex: 59/F : 1965 Unit#: [id number] Attend Dr: Gary Lovett MD Re03/17/24 Status: DEP [facility] ----- ------- SPEC : [id number] RECD: 03/18/24 STATUS: THEA PASCUAL NUM: [id number] RAIMUNDO: 03/17/24 [facility] DR: Gary Lovett MD ENTERED: 03/18/24 SP TYPE: Pap [facility] DR: Anthony Blevins MD ORDERED: Pap Smear Interpretation Satisfactory for evaluation. No endocervical cells seen. Negative for intraepithelial lesion or malignancy. HPV High Risk: Negative HPV Genotyping 16: Negative HPV Genotyping 18: Negative Note: Abundant blood present. Clinical Information LMP: Postmenopausal Previous PAP test: Unknown date/findings Other history: Postmenopausal bleeding 3 Material Received ThinPrep-Cervical Copies To: Anthony Blevins MD [address] [address] Gary Lovett MD [facility] [address] [place] [address] [address] [place] [address] [id number] ----- ------- Signed (signature on file) RYAN Candelario (ASCP) 03/24/24 1020 ----- ------- END OF REPORT Generic External Data Provider LAB CYTOLOGY HEATHERE RABLES Final Result [facility] [address] [place] [phone] * Hm Colonoscopy (03/09/2024 9:14 AM EST) Colonoscopy Normal Normal 03/09/2024 9:14 AM EST Historical Provider HEALTH MAINTENANCE Final Result * Hepatitis C Antibody with Reflex to HCV, RNA, Quantitative, Real-Time PCR (01/27/2023 1:47 PM EDT) Hepatitis C Antibody Nonreactive Nonreactive [facility] Comment:Antibodies to HCV no t detected; does not exclude early acuteHCV infection. Blood Venous blood specimen / Unknown 01/27/2023 1:47 PM EDT 01/27/2023 1:47 PM EDT Anthony Muller MD LAB BLOOD ORDERABLES Final Result [facility] [address] [place] [phone] * HPV E6/E7 RFLX MIKAL 16 18/45 (04/03/2021 3:12 PM EST) HPV mRNA E6/E7 rflx Not Detected Not Detected [facility] Comment: Methodology: Sales Project Manager-Mediated Amplification This assay detects E6/E7 viral messenger RNA (mRNA) from 14 high-risk HPV types (16,18,31,33,35,39,45,51,52,56,58,59,66,68). The analytical performance characteristics of this assay have been determined by [employer]. The modifications have not been cleared or approved by the FDA. This assay has been validated pursuant to the CLIA regulations and is used for clinical purposes. For additional information, please refer to http://education.Rosalind/faq/IIP846g7 (This link if provided for information/ educational purposes only.) THIS TEST WAS PERFORMED AT: [employer] [address] [place] [address] FLO[address],[place] [address] FABRICIO SINHA MD 04/03/2021 3:12 PM EST us Gary Lovett MD HISTORICAL/NON ORDERABLE LABS Fi nal Result Performing Organization Address City/[facility]/ZIP Co de Phone Number [facility] [address] from Last 3 Months or Most Recently Relevant to Health Maintenance Insurance [place] STAND ADULT [facility] STANDARD DENTAL-[facility] MEDICAID STAND ADULT Care Teams Petroleum Refining Firer Relationship Specialty Start Date End Date Anthony Moreno MD [address] [place] [address] PCP - General Internal Medicine 03/07/14
--- OUTSIDE RECORDS SUMMARY | 2025-02-01 15:58 | XMS_ITS | Encounter Summary ---
Author Organization [employer] [facility] Address [address] [place] [address] [address], [place] [address] Care Team Providers Care Natural Resources Specialist Name Role Phone Anthony Moreno MD Primary Care Provide r Encounter Details Date Type Department Care Team (Late Contact Info) Description 03/29/2022 Abstract [facility] [address] [place] [address] Anthony Moreno MD [address] [place], [place] [phone] Social History Tobacco Use Types Packs/Day Years [...] Department Care Team (Late Contact Info) Description 03/08/2025 11:15 AM EST Office Visit [facility] [address] [place] [address] Anthony Moreno MD [address] [place], [place] [phone] 07/07/2025 10:15 AM EDT Office Visit [facility] ADULT [facility] [address] [place] [address] Yary Carreno [address] [place] [address] documented as of this encounter Procedures Procedure Name Priority Date/Time Associated Diagnosis Comments BI MAMMOGRAM DIAGNOSTIC BILATERAL Routine 03/11/2022 3:54 PM EST documented in this encounter Results * (ABNORMAL) BI Mammogram Diagnostic Bilateral (03/11/2022 3:54 PM EST) Anatomical Region Laterality Modality Breast Bilateral Mammography Narrative 03/11/2022 3:54 PM EST Birads 3 - recommended bilateral diagnostic at time of annual exam in 12 months ([facility] ) Historical Provider MD HARP BI PROCEDURES Final R esult documented in this encounter Visit Diagnoses Not on filedocumented in this encounter Care Teams Natural Resources Specialist Relationship Specialty Start Date End Date Anthony Moreno MD [address] [place] [phone] PCP - General Internal Medicine 03/07/14 documented as of this encounter
--- OUTSIDE RECORDS SUMMARY | 2025-02-01 15:58 | XMS_ITS | Encounter Summary ---
Author Organization [employer] Address [address] [facility] 7t [place] [address] Care Team Providers Care Crime Scene Technician Name Role Phone Anthony Moreno MD Primary Care Provide r Reason for Visit * Reason Onset Date Comments Call Back Request 07/08/2024 Encounter Details Date Type Department Care Team ([facility] Contact Info) Description 07/08/2024 Telephone [facility] [address] [place], [place] [phone] Anthony Moreno MD [address] [place] [address] Call Back Request Social History Tobacco Use [...] to get done. Please return call to [phone] documented in this encounter Plan of Treatment Upcoming Encounters Date Type Department Care Team (Late st Contact Info) Description 03/08/2025 11:15 AM EST Office Visit [facility] [address] [place] [address] Anthony Moreno MD [address] [place] [address] 07/07/2025 10:15 AM EDT Office Visit [facility] ADULT DENTAL [address] [place], [place] [phone] Yary Carreno [address] [place] [address] documented as of this encounter Visit Diagnoses Not on filedocumented in this encounter Additional Health Concerns Assessment Noted Time PHQ-9 Depression Total Score: 5 06/18/19 25 2:26 PM EST documented as of this encounter Care Teams Crime Scene Technician Relationship Specialty Start Date End Date Anthony Moreno MD [address] [place] [address] PCP - General Internal Medicine 03/07/14 documented as of this encounter
--- OUTSIDE RECORDS SUMMARY | 2025-02-01 15:59 | XMS_ITS | Encounter Summary ---
Author Organization [employer] [facility] Address [address] [place] [address] [address] [address] Care Team Providers Care Metal Furniture Polisher Name Role Phone Anthony Moreno MD Primary Care Provide r Encounter Details Date Type Department Care Team (Late Contact Info) Description 03/19/2022 Abstract [facility] [address] [place] [address] ProviderRick MD Social History Tobacco Use Types [...] Description 03/08/2025 11:15 AM EST Office Visit [facility] [address] [place] [address] Anthony Moreno MD [address] [place] [address] 07/07/2025 10:15 AM EDT Office Visit [facility] ADULT DENT[facility] [address] [place] [address] Yary Carreno [address] [place] [address] documented as of this encounter Visit Diagnoses Not on filedocumented in this encounter Care Teams Metal Furniture Polisher Relationship Specialty Start Date End Date Anthony Moreno MD [address] [facility] [address] PCP - General Internal Medicine 03/07/14 documented as of this encounter
--- OUTSIDE RECORDS SUMMARY | 2025-02-01 15:59 | XMS_ITS | Encounter Summary ---
Author Organization [employer] [facility] Address [address] [place] [address] 7t [place] [address] Care Team Providers Care Environmental Compliance Engineer Name Role Phone Anthony Moreno MD Primary Care Provide r Encounter Details Date Type Department Care Team (Latest Contact Info) Description 11/20/2020 Abstract [facility] Dental, Provider, DDS Social History [...] Description 03/08/2025 11:15 AM EST Office Visit [facility] [address] [place] [address] Anthony Moreno MD [address] [place] [address] 07/07/2025 10:15 AM EDT Office Visit [facility] ADULT DENTAL [address] [place] [address] Yary Carreno [address] [place] [address] documented as of this encounter Visit Diagnoses Not on filedocumented in this encounter Care Teams Environmental Compliance Engineer Relationship Specialty Start Date End Date Anthony Moreno MD [address] [place] [phone] PCP - General Internal Medicine 03/07/14 documented as of this encounter
--- OUTSIDE RECORDS SUMMARY | 2025-02-01 15:59 | XMS_ITS | Encounter Summary ---
Author Organization [employer] [facility] Address [address] [place] [address] 7t [place] [address] Care Team Providers Care Training Administrator Name Role Phone Anthony Moreno MD Primary Care Provide r Encounter Details Date Type Department Care Team (Latest Contact Info) Description 06/24/2018 Abstract [facility] Dental, Provider, DDS Social History [...] Description 03/08/2025 11:15 AM EST Office Visit [facility] [address] [place] [phone] Anthony Moreno MD [address] [place] [address] 07/07/2025 10:15 AM EDT Office Visit [facility] ADULT DENT[facility] [address] [place] [address] Jeffery Carrenoaris [address] [place] [address] documented as of this encounter Visit Diagnoses Not on filedocumented in this encounter Care Teams Training Administrator Relationship Specialty Start Date End Date Anthony Moreno MD [address] [place] [phone] PCP - General Internal Medicine 03/07/14 documented as of this encounter
--- OUTSIDE RECORDS SUMMARY | 2025-02-01 15:59 | XMS_ITS | Encounter Summary ---
Author Organization [employer] [facility] Address [address] [place] [address] 7[place] [address] Care Team Providers Care Leave Coordinator Name Role Phone Anthony Moreno MD Primary Care Provide r Encounter Details Date Type Department Care Team ([facility] Contact Info) Description 08/22/2022 Abstract [facility] [address] [place] [address] [phone] Anthony Moreno MD [address] [place] [address] [phone] Social History Tobacco Use Types Packs/Day Years [...] Upcoming Encounters Date Type Department Care Team ([facility] Contact Info) Description 03/08/2025 11:15 AM EST Office Visit [facility] [address] [place] [address] [phone] Anthony Moreno MD [address] [place], [place] [phone] 07/07/2025 10:15 AM EDT Office Visit [facility] [address] [place], [place] [phone] Yary Carreno [address] [place] [address] documented as of this encounter Procedures Procedure Name Priority Date/Time Associated Diagnosis Comments COLONOSCOPY Routine 08/17/2013 documented in this encounter Results * Colonoscopy (08/17/2013) Colonoscopy Normal Normal 08/17/2013 Aidee Benedict - 08/17/2013 2:57 PM EDT Recommended 10 year follow up ( [facility] ) Historical Provider HEALTH MAINTENANCE Final Result documented in this encounter Visit Diagnoses Not on filedocumented in this encounter Care Teams Leave Coordinator Relationship Specialty Start Date End Date Anthony Moreno MD [address] [place] [address] PCP - General Internal Medicine 03/07/14 documented as of this encounter
== END 2025-02-01 13:17 | disposition home or self-care (01) ==
LOC: HO.HGI 12:26
PROVIDERS: PCP Internal Medicine; Visit Provider Nurse Practitioner
DX: K58.0 Irritable bowel syndrome with diarrhea (principal); K21.9 Gastro-esophageal reflux disease without esophagitis; K29.60 Other gastritis without bleeding
CPT/HCPCS: 99213

== ENCOUNTER → 2025-02-01 12:22 | Outpatient (BNVA) | payer MEDICAID, SELFPAY | PROVIDERS: PCP Internal Medicine; Visit Provider Nurse Practitioner | DX: K21.9 Gastro-esophageal reflux disease without esophagitis (principal); K58.0 Irritable bowel syndrome with diarrhea; K29.60 Other gastritis without bleeding | CPT/HCPCS: 99212 ==

== ENCOUNTER 2025-02-11 14:56 | Outpatient (AMB) | payer MEDICAID, SELFPAY ==
--- OUTSIDE RECORDS SUMMARY | 2025-02-08 09:30 | XMS_ITS | Continuity of Care Document ---
Author Organization [facility] Address [address] [facility] [address] [place] [address] Phone Care Team Providers Care Furnace Charger Name Role Phone Hardeep CALDERON, INDIRA, PIPER, Abad Unavailable U navailable Allergies, Adverse Reactions, Alerts Substance Reaction Status Criticality DOCUSATE SODIUM Active No Informati on Medications Medication Instructions Dosage Effective Dates (start - stop) Status Comments levothyroxine 88 mcg tablet - Ac tive Ventolin HFA 90 mcg/actuation aerosol inhaler - Active Procedures Procedure Date Duplex Scan-extrem Veins; Uni/ CT & [place] O Surgical Stockings CVR Reveal Thigh High 20-30 Varithena, Single Truncal Vein - CT & [place] Surgical Stockings Duomed Panty 15-20 Oc Surgical Stockings Return Office/Oupt E&M New Pt 30 Mins- CT & [place] Duplex Scan-extrem Veins; Comp- CT & [place] Advance Directives Directive Yes / No Effective Date File Name No Information Encounters Encounter Description Practice Location Reason(s) For Visit Diagnoses Date Provider Providers Copied on Encounter [facility], [address] [place] [address] Dr Ob[address], [place], [id number], [place] tel:[phone] CVR - [facility] Encounter for follow-up examination after completed treatment for conditions other than malignant neoplasmPain in right leg Hardeep CALDERON RVT, PIPER Melgoza. [address] [facility], [address], [place], [place], [id number] , [place]. [phone] Referring Provider: Anthony Muller MD, [address], [place], [address]. tel:[phone] [facility], [address] [place] [address] [address], [id number], [place] tel:[phone] CVR - [place] [facility] [place] Chronic venous hypertension (idiopathic) without complications of bilateral lower extremityVenous insufficiency (chronic) (peripheral) Oct-2 5 Hardeep CALDERON RVT, PIPER Melgoza. [address] [place] [address], [address] [facility], [place], [place], [id number] , [place]. [phone] Referring Provider: Anthony Muller MD, [address], [place], [address]. tel:[phone] [facility], [address] [place] [address] [address], [id number], [place] [phone] CVR - [place] Varicose veins of right lower extremity with other complications Oct-2 5 Hardeep CALDERON RVT, PIPER Melgoza. [address] [facility], [address], [facility], [place], [id number] , [place]. [phone] Referring Provider: Anthony Muller MD, [address], [place], [address]. tel:[phone] [facility], [address] [place] [address] [address], [place], [id number], [place] tel:[phone] CVR [place] Chronic venous hypertension (idiopathic) without complications of bilateral lower extremity Oct-0 5 Hardeep CALDERON RVT, PIPER Melgoza. [address] [facility], [address], [place], [place], [id number] , [place]. tel:[phone] Referring Provider: Anthony Muller MD, [place], [address]. tel:[phone] Office/Oupt E&M New Pt 30 Mins- CT & [place] [facility], [address] [place] [address] Dr Obiren [address], [place], [id number], tel:[phone] [facility] Chronic venous hypertension (idiopathic) without complications of bilateral lower extremityRestle ss legs syndromeVenous insufficiency (chronic) (peripheral)Pru ritus, unspecifiedCram p and spasmLocalized edema Sep- 5 Hardeep CALDERON, INDIRA, PIPER Melgoza. [address] [place] [address], [place], [place], [id number] , [place]. tel:[phone] Referring Provider: Arnoldo Christina MD, DR, DR, [place], [address]. tel:[phone] [facility], [address] [place] [address] Dr [address] [address], [place], [id number], [place] tel:[phone] [facility] Chronic venous hypertension (idiopathic) with other complications of bilateral lower extremity Sep- 5 Hardeep CALDERON RVT, PIPER Melgoza. [address] [place] [address], [place], [place], [id number] , [place]. tel:[phone] Referring Provider: Anthony Muller MD, [address], [place], [address]. tel:[phone] Family History Family Member Type Diagnosis Age At Onset No Information Payers Payer name Insurance type Covered constitution party ID Authoriza tialexey(s) Medical Assistance [facility] [id number] Social History Type Description Quantity Date Captured Comments Sex Female Smoking Status No Information Chief Complaint And Reason For Visit No Information Reason For Referral Reason For Referral No Information Plan Of Treatment Date Type Action Status Goal Diet education completed Referral Ordered: Weight management: Referral to physician timeframe: 3 Months (related to Body mass index (BMI) 27.0-27.9, adult) ordered Appointment Steffanie Esquivel BOOKED Appointment Steffanie Esquivel BOOKED History Of Present Illness Encounter Date Complaint History Of Prese nt Illness No Information Functional Status Date Functional Assessmen t No Information Instructions Date Instruction Additional Infor gerald Pre and post instruc tions reviewed and provided Related to Chronic venous hypertension (idiopathic) without complications of bilateral lower extremity Diet education Related to Body mass index (BMI) 27.0-27.9, adult Giving Encouragement to exercise Related to Body mass index (BMI) 27.0-27.9, adult Lifestyle education Related to B kristyn mass index (BMI) 27.0-27.9, adult Patient education booklet given Related to Chronic venous hypertension (idiopathic) without complications of bilateral lower extremity Assessments Type Assessment Date No Information Patient Care Teams Name Effective Dates (start - stop) Status Members No Information
[2025-02-11 15:00] VITALS: BP 102/52; PULSE 69; O2SAT 97; BMI 27.8
--- NOTE | 2025-02-11 15:00 | A.OFFVIS_ITS ---
Vital Signs 02/11/25 15:00 Height 5 ft 1 in Weight 147 lb BMI 27.8 BP 102/52 L Blood Pressure Location Lt brachial Position Sitting Pulse 69 Pulse Source Pulse Oximeter Pulse Oximetry (%) 97 Oxygen Delivery Method Room Air Intake Visit Reasons: asthma Mutual Fund Accountant Required: Yes Mutual Fund Accountant Services: Mutual Fund Accountant Present Mutual Fund Accountant Name: [id number] Allergies cholestyramine Allergy (Intermediate, Verified 02/11/25 15:05) itching HPI HPI asthma: Details: 60-year-old lady, nonsmoker, now followed for reactive airway disease, bronchiectasis, GERD, and pulmonary nodule.? Patient continues on Incruse and albuterol MDI with good control of her pulmonary symptoms. She denies recent exacerbation of bronchiectasis. She continues on Dexilant with good control of underlying GERD symptoms. Her follow-up CT scan in December 2023 showed stable pulmonary nodules, but she has not had her 2024 follow-up CT scan yet. [facility] Medical History (Updated 02/01/25 @ 13:05 by HOLA Gresham) Generalized abdominal pain Upper abdominal pain Tinnitus of both ears Chronic leukopenia BRBPR (bright red blood per rectum) Dental calculus Bleeding gums Urge incontinence of urine Acute migraine Hypothyroidism (acquired) Back pain Cough Vaginal discharge Pre-op examination Preop pulmonary/respiratory exam Well woman exam 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 GERD (gastroesophageal reflux disease) Anxiety Depression Fibromyalgia Surgical History Hx of surgical procedure (~02/19/24) Hx of elbow surgery History of colonoscopy (03/09/24) History of bilateral tubal ligation History of cholecystectomy Family History Family/Other Cancer Social History Household Members: None Housing: Apartment Are you a primary rental boats caretaker to a significant other at home: No Do you presently have visiting nurse or other home services: Yes (HANDKERCHIEF SAMPLE CLERK 1 hour/day) Alcohol intake: current Alcohol intake frequency: does not drink Patient Tobacco Use Status: Never used Tobacco Advance Directives Date on File: 01/19/20 Current occupational status: disabled Sexual orientation: Straight/Heterosexual Gender identity: Female Female Reproductive History Menstrual Age of Menarche: 7 Review of Systems Const Denies daytime sleepiness, Denies excessive sweating, Denies fatigue, Denies fever(s), Denies lethargy, Denies malaise, Denies night sweats, Denies snoring and Denies weight loss Eyes Denies blurry vision and Denies itchy eyes ENT Denies nasal congestion, Denies post nasal drip, Denies sinus pain, Denies sinus pressure and Denies other ( Thrush) Card Denies chest pain, Denies pedal edema, Denies dyspnea, Denies orthopnea and Denies paroxysmal nocturnal dyspnea Resp Denies cough, Denies hemoptysis, Denies excessive phlegm production, Denies dyspnea, Denies snoring and Denies wheezing GI Denies abdominal pain and Denies heartburn Musc Denies myalgias, Denies arthralgias and Denies joint swelling Skin/Breast Denies rash Neuro Denies memory loss and Denies seizure-like activity Psych Denies abnormal sleep pattern, Denies anxiety and Denies memory loss Endo Denies excessive sweating, Denies fatigue and Denies heat intolerance Jacob/Lymph Denies easy bruising Aller/Immun Denies itchy eyes, Denies seasonal rhinorrhea and Denies wheezing Physical Exam Vital Signs: Last Vital Signs Pulse 69 02/11/25 15:00 BP 102/52 L 02/11/25 15:00 Pulse Ox 97 02/11/25 15:00 Oxygen Delivery Method Room Air 02/11/25 15:00 BMI result Body Mass Index 27.8 Const General: no acute distress and alert Nutritional Appearance: not obese Orientation/consciousness: Other orientation findings ( oriented) HEENT Head: Yes atraumatic Eyes General: appearance normal, both eyes and all related structures Sclerae: sclerae normal EOM: EOMs intact bilaterally Neck Neck: Yes supple Lymphatic: no lymphadenopathy noted Resp Effort & Inspection: normal respiratory effort and no use of accessory muscles Auscultation: clear to auscultation bilaterally Cardio Rate: regular rate Rhythm: regular rhythm Heart sounds: no gallops, no murmurs and no rubs Skin General skin exam: other ( warm) Extrem General: No clubbing, No cyanosis and No edema Assessment & Plan Assessment & Plan (1) Bronchiectasis: Code(s): J47.9 - Bronchiectasis, uncomplicated Category: Medical Plan: No recent exacerbations. Continue to monitor clinically. (2) Pulmonary nodules: Code(s): R91.8 - Other nonspecific abnormal finding of lung field Category: Medical Plan: Follow-up CT chest is pending, if stable at this time, no further imaging follow-up would be required. (3) Reactive airway disease: Code(s): J45.909 - Unspecified asthma, uncomplicated Category: Medical Plan: Well controlled on Incruse and albuterol MDI. Continue current regimen. (4) GERD (gastroesophageal reflux disease): Code(s): K21.9 - Gastro-esophageal reflux disease without esophagitis Category: Medical Plan: Well controlled on Dexilant. Continue current regimen. Coding Level of Care Code Est Pt Level 4 (60905) Complex EM visit Add On G2211 Diagnoses Bronchiectasis J47.9 Pulmonary nodules R91.8 Reactive airway disease J45.909 GERD (gastroesophageal reflux disease) K21.9
--- OUTSIDE RECORDS SUMMARY | 2025-02-11 15:21 | XMS_ITS | Encounter Summary ---
Author Organization [employer] Address [address] [facility] 7t [place] [address] Care Team Providers Care Direct Support Worker Name Role Phone Anthony Moreno MD Primary Care Provide r Reason for Visit * Reason Onset Date Comments Clarification 03/18/2023 Encounter Details Date Type Department Care Team ([facility] Contact Info) Description 03/18/[address] [facility] MEDICINE [address] [place], [place] [phone] Anthony Moreno MD [address] [place], [place] [phone] Clarification Social History Tobacco Use Types Packs/Day [...] t he electric, gas, oil or water [employer] threatened to shut off services in your [...] should take solution. Please contact Donna @ [phone] documented in this encounter Plan of Treatment Upcoming Encounters Date Type Department Care Team (Late st Contact Info) Description 03/08/2025 11:15 AM EST Office Visit [facility] MEDICINE [address] [place] [address] Anthony Moreno MD [address] [place] [address] 07/07/2025 10:15 AM EDT Office Visit [facility] ADULT DENTAL [address] [place] [address] Ev, Yary [address] [place] [address] documented as of this encounter Visit Diagnoses Not on filedocumented in this encounter Care Teams Direct Support Worker Relationship Specialty Start Date End Date Anthony Moreno MD [address] [place] [address] PCP - General Internal Medicine 03/07/14 documented as of this encounter
--- OUTSIDE RECORDS SUMMARY | 2025-02-11 15:21 | XMS_ITS | Encounter Summary ---
Author Organization [employer] Address [address] [facility] 7t [place] [address] Care Team Providers Care Full Time Name Role Phone Anthony Moreno MD Primary Care Provide r Reason for Visit * Reason Onset Date Comments Call Back Request 07/08/2024 Encounter Details Date Type Department Care Team ([facility] Contact Info) Description 07/08/2024 Telephone [facility] MEDICINE [address] [place], [place] [phone] Anthony Moreno MD [address] [place] [address] Call Back Request Social History Tobacco Use [...] to get done. Please return call to [phone] documented in this encounter Plan of Treatment Upcoming Encounters Date Type Department Care Team (Late st Contact Info) Description 03/08/2025 11:15 AM EST Office Visit [facility] MEDICINE [address] [place] [address] Anthony Moreno MD [address] [place] [address] 07/07/2025 10:15 AM EDT Office Visit [facility] ADULT DENTAL [address] [place], [place] [phone] Yary Carreno [address] [place] [address] documented as of this encounter Visit Diagnoses Not on filedocumented in this encounter Additional Health Concerns Assessment Noted Time PHQ-9 Depression Total Score: 5 06/18/19 25 2:26 PM EST documented as of this encounter Care Teams Full Time Relationship Specialty Start Date End Date Anthony Moreno MD [address] [place] [address] PCP - General Internal Medicine 03/07/14 documented as of this encounter
--- OUTSIDE RECORDS SUMMARY | 2025-02-11 15:21 | XMS_ITS | Encounter Summary ---
Author Organization [employer] [facility] Address [address] [place] [address] 7[address] [place] [address] Care Team Providers Care Craft Recruiter Name Role Phone Anthony Moreno MD Primary Care Provide r Encounter Details Date Type Department Care Team ([facility] Contact Info) Description 08/22/2022 Abstract [facility] MEDICINE [address] [place] [address] [phone] Anthony Moreno MD [address] [place] [phone] Social History Tobacco Use Types Packs/Day Years [...] Upcoming Encounters Date Type Department Care Team ([facility] Contact Info) Description 03/08/2025 11:15 AM EST Office Visit [facility] MEDICINE [address] [place] [phone] Anthony Moreno MD [address] [place], [place] [phone] 07/07/2025 10:15 AM EDT Office Visit [facility] ADULT DENTAL [address] [place], [place] [phone] Yary Carreno [address] [place] [address] documented as of this encounter Procedures Procedure [...] on filedocumented in this encounter Care Teams Craft Recruiter Relationship Specialty Start Date End Date Anthony Moreno MD [address] [place] [address] PCP - General Internal Medicine 03/07/14 documented as of this encounter
--- OUTSIDE RECORDS SUMMARY | 2025-02-11 15:21 | XMS_ITS | Encounter Summary ---
Author Organization [employer] Address [address] [place] [address] 7t [place] [address] Care Team Providers Care Heat Treating Furnace Tender Name Role Phone Anthony Moreno MD Primary Care Provide r Encounter Details Date Type Department Care Team (Latest Contact Info) Description 06/24/2018 Abstract [facility] CONVERSIONS Dental, Provider, DDS Social History [...] Description 03/08/2025 11:15 AM EST Office Visit [facility] MEDICINE [address] [place] [address] Anthony Moreno MD 230 [place] [address] 07/07/2025 10:15 AM EDT Office Visit [facility] ADULT DENTAL [address] [place] [address] Jeffery Carrenoaris [address] [place] [address] documented as of this encounter Visit Diagnoses Not on filedocumented in this encounter Care Teams Heat Treating Furnace Tender Relationship Specialty Start Date End Date Anthony Moreno MD [address] [place] [address] PCP - General Internal Medicine 03/07/14 documented as of this encounter
--- OUTSIDE RECORDS SUMMARY | 2025-02-11 15:21 | XMS_ITS | Encounter Summary ---
Author Organization [employer] Address [address] [facility] 7t [place] [address] Care Team Providers Care Configuration Specialist Name Role Phone Anthony Moreno MD Primary Care Provide r Reason for Visit * Reason Comments Med Refill Encounter Details Date Type Department Care Team ([facility] Contact Info) Description 02/10/2025 Refill [facility] MEDICINE 230 [place], [place] [phone] Anthony Moreno MD 230 [place], [place] [phone] Social History Tobacco Use Types Packs/Day Years [...] Description 03/08/2025 11:15 AM EST Office Visit [facility] MEDICINE [address] [place] [address] Anthony Moreno MD 230 [place] [address] 07/07/2025 10:15 AM EDT Office Visit [facility] ADULT DENTAL [address] [place] [address] Ev, Yary [address] [place] [address] documented as of this encounter Visit Diagnoses Not on filedocumented in this encounter Additional Health Concerns Assessment Noted Time PHQ-9 Depression Total Score: 5 06/18/19 25 2:26 PM EST documented as of this encounter Care Teams Configuration Specialist Relationship Specialty Start Date End Date Anthony Moreno MD 230 [place] [address] PCP - General Internal Medicine 03/07/14 documented as of this encounter
--- OUTSIDE RECORDS SUMMARY | 2025-02-11 15:21 | XMS_ITS | Encounter Summary ---
Author Organization [employer] Address [address] [facility] 7t [place] [address] Care Team Providers Care Security Shift Manager Name Role Phone Anthony Moreno MD Primary Care Provide r Encounter Details Date Type Department Care Team ([facility] st Contact Info) Description 05/10/2024 Telephone [facility] MEDICINE [address] [place], [place] [phone] Anthony Moreno MD [address] [place], [place] [phone] Social History Tobacco Use Types Packs/Day Years [...] 03/08/2025 11:15 AM EST Office Visit [facility] MEDICINE [address] [place] [address] Anthony Moreno MD [address] [place] [address] 07/07/2025 10:15 AM EDT Office Visit [facility] ADULT DENTAL [address] [place] [address] Ev, Yary [address] [place] [address] documented as of this encounter Visit Diagnoses Not on filedocumented in this encounter Additional Health Concerns Assessment Noted Time PHQ-9 Depression Total Score: 1 08/19/19 24 1:27 PM EDT documented as of this encounter Care Teams Security Shift Manager Relationship Specialty Start Date End Date Anthony Moreno MD [address] [place] [address] PCP - General Internal Medicine 03/07/14 documented as of this encounter
--- OUTSIDE RECORDS SUMMARY | 2025-02-11 15:21 | XMS_ITS | Encounter Summary ---
Author Organization [facility] Address [address] [place] [address] 7 [place] [address] Care Team Providers Care Manager Agriculture Name Role Phone Anthony Moreno MD Primary Care Provide r Encounter Details Date Type Department Care Team (Late Contact Info) Description 03/19/2022 Abstract [facility] MEDICINE [address] [place] [address] ProviderRick MD Social History Tobacco Use Types [...] Description 03/08/2025 11:15 AM EST Office Visit [facility] MEDICINE [address] [place] [address] Anthony Moreno MD 230 [place] [address] 07/07/2025 10:15 AM EDT Office Visit [facility] ADULT DENTAL [address] [place] [address] Yary Carreno [address] [place] [address] documented as of this encounter Visit Diagnoses Not on filedocumented in this encounter Care Teams Manager Agriculture Relationship Specialty Start Date End Date Anthony Moreno MD [address] [facility] [place] [address] PCP - General Internal Medicine 03/07/14 documented as of this encounter
--- OUTSIDE RECORDS SUMMARY | 2025-02-11 15:21 | XMS_ITS | Encounter Summary ---
Author Organization [employer] Address [address] [facility] 7t [place] [address] Care Team Providers Care Ekg Technician Name Role Phone Anthony Moreno MD Primary Care Provide r Reason for Visit * Reason Comments Med Refill Encounter Details Date Type Department Care Team ([facility] Contact Info) Description 05/14/2023 Refill [facility] MEDICINE [address] [place], [place] [phone] Anthony Moreno MD [address] [place], [place] [phone] Social History Tobacco Use Types Packs/Day Years [...] Description 03/08/2025 11:15 AM EST Office Visit [facility] MEDICINE [address] [place] [address] Anthony Moreno MD [address] [place] [address] 07/07/2025 10:15 AM EDT Office Visit [facility] ADULT DENTAL [address] [place] [address] Ev Yary [address] [place] [address] documented as of this encounter Visit Diagnoses Not on filedocumented in this encounter Care Teams Ekg Technician Relationship Specialty Start Date End Date Anthony Moreno MD [address] [place] [address] PCP - General Internal Medicine 03/07/14 documented as of this encounter
--- OUTSIDE RECORDS SUMMARY | 2025-02-11 15:21 | XMS_ITS | Clinical Summary ---
Author Organization [address] [facility] Address [address] [place] [address] Phone Care Team Providers Care Digital Community Manager Name Role Phone Anthony Blevins MD Primary [...] Last Done Comments Breast Cancer Screening 1965 Colorectal Cancer Screening: Colonoscopy 1965 Hepatitis A Vaccines (1 of 2 - Risk 2-dose series) 1982 Pneumococcal Vaccine: 50+ Years (1 of 1 - PCV) 2013 RSV Immunization Adult Patients (1 - Risk 50-74 years 1-dose series) 2013 Zoster Vaccines (1 of 2) 2013 DTaP,Tdap,and Td Vaccines (3 - Td or Tdap) 06/07/2021 06/07/2011, 07/19/1997 Hepatitis B Vaccines (1 of 3 - Risk 3-dose series) 2023 HIV Screening 01/31/2024 Social Influencers of Health [...] topic Insurance MEDICAID - [place] Care Teams Digital Community Manager Relationship Specialty Start Date End Date Anthony Blevins MD [address] [place] [address] [place] [phone] PCP - General 01/12/24
--- OUTSIDE RECORDS SUMMARY | 2025-02-11 15:21 | XMS_ITS | Encounter Summary ---
Author Organization [employer] [facility] Address [address] [place] [address] 7t [place] [address] Care Team Providers Care Paper Sheeter Name Role Phone Anthony Moreno MD Primary Care Provide r Encounter Details Date Type Department Care Team (Latest Contact Info) Description 11/20/2020 Abstract [facility] CONVERSION[facility] Dental, Provider, DDS Social History Tobacco [...] Description 03/08/2025 11:15 AM EST Office Visit [facility] MEDICINE [address] [place] [address] Anthony Moreno MD [address] [place] [address] 07/07/2025 10:15 AM EDT Office Visit [facility] ADULT DENTAL [address] [place] [address] Yary Carreno [address] [place] [address] documented as of this encounter Visit Diagnoses Not on filedocumented in this encounter Care Teams Paper Sheeter Relationship Specialty Start Date End Date Anthony Moreno MD [address] [place] [address] PCP - General Internal Medicine 03/07/14 documented as of this encounter
--- OUTSIDE RECORDS SUMMARY | 2025-02-11 15:21 | XMS_ITS | Data Portability ---
Author Organization [place] - [facility], Allergy Address [address] [address] Care Team Providers Care Electric Arc Furnace Operator Name Role Phone SOPHIE KIM Primary [...] etiology, but patient declined. She will continue ciia-vzv-myvtdwb anti-inflammator ies as needed. Recommend considering medical-grade mouth guard through their dentist if symptoms persist despite supportive management. [email or web address] Not available 09/22/2024 16:31:52 11/23/2024 11/23/2024 59yo divehi-speaking female with SNHL, TMJ and history of [...] INTERNAL AUDITORY CANAL, W/WO CONTRAST 2023 024 [facility] ([facility]), [address] [facility], [place], [address], 12:39:15 Medication Orders None recorded. Patient TargetsNo [...] contr ast No observ ation record ed. [email or web address] [facility] 26 [facility] [place], [address], 09/24/2023 15:40:17 12/03/19 24 09/04/2023 imagi ng/di agnos tic resul t No observ ation record ed. [email or web address] Not Available 20:41:55 11/24/19 25 audio gram No observ ation record ed. BARCODE Not Available 2024 14:26:28 Result Notes None recorded. 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 , including 'globus hystericu s'; Note: Date Diagnosed : 8 3:21 PM (F45.8) Not Available [facility] 4 03:26:41 Gastroeso phageal reflux disease without esophagit is 313092366 Active 2017 Gastro-es ophageal reflux disease without esophagit is; Note: Date Diagnosed : 8 3:24 PM (K21.9) Not Available [facility] 4 03:26:41 Dysphagia 35856235 Active 2017 Other dysphagia ; Note: Date Diagnosed : 8 3:21 PM (R13.19) Not Available [facility] 4 03:26:41 Sensorine ural hearing loss of bilateral ears 940754701 Active 2023 MAYO TADEO, AUD 100 [facility],[place] [address], [place], [address] , [place] - [facility] 4 11:10:51 Vertigo 946712920 Active 2023 Nadia gomez, [place] - [facility] 4 11:46:48 Vestibula r migraine 793074112 Active 2023 Nadiaeitan gomez, [place] - [facility] 4 15:38:23 Bilateral earache 375761604 Active 2023 Nadiahubert Blood null, [place] - [facility] 4 11:22:43 Temporoma ndibular joint disorder 47779652 Active 2023 Nadia gomez, [place] - [facility] 4 11:23:02 Sensorine ural hearing loss of bilateral ears 558040426 Active 2024 MAYO TADEO, AUD 100 [facility],[place], [place], [address] , [facility] 5 11:02:32 Bilateral tinnitus 78186173859 02 Active 2024 MARII MARIE PA-C 100 [facility] 100, [place], [address] , [facility] 5 11:40:47 Problem Notes None recorded. Procedures Surgical History Date Name Laterality Status Provider Name and Address Organization Details Recorded Time 5 Air & Speech Audio with Tymps - 83452, 43426 & 35490 completed MAYO TADEO, AUD 100 [facility] 100, [place], [address], [facility] 11/23/2024 11:02:27 4 Comp Audio with Tymps & Reflexes - 25763 & 67085 completed MAYO [employer], AUD 100 [facility] 100, [place], [address], [facility] 09/04/2023 11:10:42 Imaging Results None recorded. Procedure [...] mcg tablet 11/23 completed Medicati on ID: [id number] D uration Value: 30 Brand Name: levothyr [...] Updated DateTime 11/23/2024 154.94 cm 27.4 kg/m2 24957.89 g Liat Awan [facility] 11/23/2024 11:14:48 Social History None recorded. Functional [...] Note 1291 NADIA BLOOD PA-C [facility] [address] [address] 09/04/2023 10:26:40 09/04/2023 12:03:25 Sensorineural hearing loss of bilateral ears 267016266 H90.3 Audiologic al evaluation results:Ri ght ear:Normal [...] 1kHz, AD, and contra 1kHz, . Vertigo 685498940 R42 Associated pre-syncop e and arm weakness Vestibular migraine 2322 13258 H81.8X9 16736 NADIA BLOOD PA-C [facility] [address] [address] 11/26/2023 10:49:19 11/26/2023 11:27:05 Bilateral earache 415599151 H92.03 Temporoman dibular joint disorder 00681615 M26.609 Vestibular migraine 2322 62334 H81.8X9 07491 MARII MARIE PA-C [facility] [address] [address] 09/22/2024 13:50:12 09/22/2024 14:28:42 Bilateral earache 581460392 H92.03 Temporoman dibular joint disorder 02847789 M26.609 83294 MARII MARIE PA-C [facility] [address] [address] 11/23/2024 10:43:43 11/23/2024 13:19:49 Sensorineural hearing loss of bilateral ears 163536168 H90.3 32356099 Audiologic al evaluation results: Mild to moderate sensorineu ral hearing loss with excellent word recognitio n, bilaterall y. Tympanomet ry: Right Ear:Type B Left Ear:Type B Temporoman dibular joint disorder 78767137 M26.609 Bilateral tinnitus 60211 23764 102 H93.13 037455 Today we discussed the pathophysi ology of tinnitus and the absence of consistent ly successful pharmacolo gic treatments . Recommend masking strategies to decrease awareness of the tinnitus, including using a white noise machine, Zjdg.cn tinnitus miguelina, music, or television . We [...] Abraham Member ID Guarantor Name 12/22/2024 1 [place]: [facility] Steffanie James [id number] Steffanie Benjamin Notes Date Note Type Note [...] gomez [place] - [facility] 09/04/2023 15:39:50 11/26/2023 text/html ROS as noted [...] jaw pops and cracks. COLE PICKENS MD [address] [place] [address], [place], [address], [place] - [facility] 11/26/2023 13:04:47 09/22/2024 text/html ROS as noted in the [facility] 59yo female with TMJ and migrainous vertigo [...] No smoking history. COLE PICKENS MD 100 [facility],[address], [address], [facility] - [facility] 09/23/2024 07:48:44 11/23/2024 text/html ROS as noted in the HPI 59yo divehi-speaking female with TMJ and history of migrainous [...] retrocochlear pathology. She has been using flonase fci for chronic nasal congestion. JAYLEEN MIGUEL MD 100 [facility],[place] [address], [place], [address], [facility] 11/23/2024 20:50:14 OBGyn Episode No OBEpisode recorded.
--- OUTSIDE RECORDS SUMMARY | 2025-02-11 15:21 | XMS_ITS | Encounter Summary ---
Author Organization [employer] Address [address] [place] [address] Care Team Providers Care Dental Laboratory Supervisor Name Role Phone Anthony Moreno MD Primary Care Provide r Reason for Visit * Reason Onset Date Comments Referral 02/03/2025 Encounter Details Date Type Department Care Team ([facility] Contact Info) Description 02/03/2025 Telephone [facility] [address] [place], [place] [phone] Anthony Moreno MD [address] [place] [address] Referral Social History Tobacco Use Types Packs/Day [...] Telephone Encounter - Arianne Baumann RN - 02/03/2025 2:28 PM EDT RN called [facility]rology who confirmed that the pt last referral in 2023. A new referral will need to be placed by PCP. Will route to PCP for review. * Telephone Encounter - Phong Gardner - 02/03/2025 12:00 PM EDT Tc from pt stating her referral for [facility] urology has and she is requesting a new one. If any questions contact pt at [phone]. documented in this encounter Plan of Treatment Upcoming Encounters Date Type Department Care Team (Late st Contact Info) Description 03/08/2025 11:15 AM EST Office Visit [facility] [address] [place] [address] Anthony Moreno MD [address] [place] [address] 07/07/2025 10:15 AM EDT Office Visit [facility] [address] [place] [address] EvYary [address] [place] [address] documented as of this encounter Visit Diagnoses Not on filedocumented in this encounter Additional Health Concerns Assessment Noted Time PHQ-9 Depression Total Score: 5 06/18/19 25 2:26 PM EST documented as of this encounter Care Teams Dental Laboratory Supervisor Relationship Specialty Start Date End Date Anthony Moreno MD [address] [place] [address] PCP - General Internal Medicine 03/07/14 documented as of this encounter
--- OUTSIDE RECORDS SUMMARY | 2025-02-11 15:21 | XMS_ITS | Clinical Summary ---
Author Organization [employer] Address [address] [facility] 7[address] [place] [address] Care Team Providers Care Fare Enforcement Officer Name Role Phone Anthony Moreno MD [...] MOUTH TWICE DAILY WITH MEALS 60 tablet 02/12/20 25 Active naproxen (Naprosyn) 500 MG tablet TAKE 1 TABLET BY MOUTH TWICE DAILY WITH MEALS 60 tablet 01/07/20 25 025 Discontinued Active Problems Problem Noted Date Diagnosed Date Arthralgia of bilateral temporomandibular joint 07/05/2024 Postmenopausal bleeding 06/17/2024 Assessment & Plan (06/17/2024 2:48 PM EST): Under the care of Dr gary Lovett PREPRESS MANAGER , last seen 05/2024 She is [...] synovitis on exam. She refused injection from Development Mechanic. She had surgery on the right elbow for nerve pain and wants to he the left hand done. Development Mechanic recommended to continue with Tylenol and over [...] of films were also faxed to patient's fibre optic cable splicer Assessment & Plan (01/06/2024 10:16 AM EDT): Evaluated by Rheumatology last seen 06/2023 recommended 1 year follow up Prior serology with negative SONYA, RF, and anti-CCP. Hand pain to the right is resolved, X-rays from 2022 showed osteoarthritis. No synovitis on exam. She refused injection from Development Mechanic. She had surgery on the right elbow for nerve pain and wants to he the left hand done. Development Mechanic recommended to continue with Tylenol and over [...] by ENT ( [facility]) last seen 11/26/2023 They obtained a brain MRI and IACs at [facility] ) that was read as normal for [...] etiology, but patient declined. She will continue sudl-asc-jfngjpu anti-inflammatories as needed. Recommend considering medical-grade mouth guard through their dentist if symptoms persist despite supportive management. Assessment & Plan (11/27/2023 2:42 PM EDT): Pt with previous c/o tinnitus with associated vertigo, using Meclizine PRN prescribed by Neurology Evaluated by ENT ( [facility]) last seen 11/26/2023 They obtained a brain MRI and IACs at [facility] ) that was read as normal for [...] neg, NILM, 04/03/[address] Lovett [facility] Colonoscopy: 08/17/2013 Dr. Smith. Repeat 03/09/2024 Dr Kaba at [facility] Normal aside from hemorrhoids, 10 yr follow up recommended Vaccines: Td: 06/07/2011 Declines booster Dexa scan: 05/25/2010. Assessment & Plan (06/17/2024 2:44 PM EST): Mammogram: 03/14/2023 Normal Pap Smear: HPV neg, NILM, 04/03/[address] Lovett [facility] Colonoscopy: 08/17/2013 Dr. Smith. Repeat 03/09/2024 Dr Kaba at [facility] Normal aside from hemorrhoids, 10 yr follow up recommended Vaccines: Td: 06/07/2011 Declines booster Dexa scan: 05/25/2010. Assessment & Plan (11/27/2023 2:55 PM EDT): Mammogram: 03/14/2023 Normal Pap Smear: HPV neg, NILM, 04/03/[address] Lovett [facility] Colonoscopy: 08/17/2013 Dr. Smith. Scheduled for Feb 2024 for a repeat. Vaccines: Td: 06/07/2011 Declines booster Dexa scan: 05/25/2010. Assessment & Plan (01/16/2023 3:01 PM EDT): Mammogram: 03/11/2022 BIRADS 3, due Feb 2023 Pap Smear: HPV neg, NILM, 04/03/[address] Lovett [facility] Colonoscopy: 08/17/2013 Dr. Smith Vaccines: Td: 06/07/2011 Dexa scan: 05/25/2010. Assessment & Plan (08/06/2022 2:21 PM EDT): Mammogram: 03/11/2022 BIRADS 3, due Feb 2023 Pap Smear: HPV neg, NILM, 04/03/[address] Lovett [facility] Colonoscopy: 08/17/2013 Dr. Smith [...] stated that: CT of the C-spine confirms gekm-gd-weytssnl degenerative disc disease at the C5-6 level [...] to the fact thay they had no interpreter and translator. Pt is requesting to have the toenail [...] a Hx of severe anxiety. follows at [facility]. On Klonopin 0.5 mg po qd prn for anxiety. Chronic low back pain 01/14/2012 Assessment & Plan (08/06/2022 2:24 PM EDT): follows at [facility], receives epidural injections intermittently. Fibromyalgia 01/14/2012 Assessment [...] 2.02 Used to follow with Endocrinology at [facility]. She is on Synthroid 88 mcg po daily. Plan: Continue with current regimen Pt tells me the Cardiovascular Or Nurse already told her there was no need to f/u with them to only follow with us Plan: Repeat TSH Assessment & Plan (11/27/2023 2:44 PM EDT): Pt here for a f/u Most recent TSH 08/19/2023 normal at 2.02 Used to follow with Endocrinology at [facility]. She is on Synthroid 88 mcg po daily. Plan: Continue with current regimen Pt tells me the Cardiovascular Or Nurse already told her there was no need to f/u with them to only follow with us Assessment & Plan (08/19/2023 1:26 PM EDT): Pt here for a f/u Most recent TSH 06/18/2023 elevated at 9.46 Used to follow with Endocrinology at [facility]. She is on Synthroid 88 mcg po daily. Plan: Will repeat and if still elevated will increase it to 100 mcg po daily Pt tells me the Cardiovascular Or Nurse already told her there was no need to f/u with them to only follow with us Plan: continue current regimen. Will repeat TSH Assessment & Plan (06/17/2023 2:07 PM EST): Pt here for a f/u Most recent TSH 01/27/2023 elevated at 6.02 Used to follow with Endocrinology at [facility]. She was on Synthroid 75 mcg po daily. I increased it to 88 mcg po daily Pt tells me the Cardiovascular Or Nurse already told her there was no need to f/u with them to only follow with us Plan: continue current regimen. Will repeat TSH Assessment & Plan (01/16/2023 3:46 PM EDT): Pt here for a f/u Most recent TSH 03/27/2022 wnl Used to follow with Endocrinology at [facility]. She is currently on Synthroid 75 mcg po daily. Pt tells me the Cardiovascular Or Nurse already told her there was no need to f/u with them to only follow with us Plan: continue current regimen. Will repeat TSH Assessment & Plan (08/06/2022 2:27 PM EDT): Pt here for a f/u Most recent TSH 03/27/2022 wnl Used to follow with Endocrinology at [facility]. She is currently on Synthroid 75 mcg po daily. Pt tells me the Cardiovascular Or Nurse already told her there was no need [...] Encounters Date Type Department Care Team Description 02/10/2025 Refill [facility] [address] [place] [address] Anthony Moreno MD 02/08/2025 Orders Only [facility] [address] [place] [address] Anthony Moreno MD Urge incontinence of urine (Primary Dx) 02/03/2025 Telephone [facility] [address] [place] [address] Anthony Moreno MD Referral 01/06/2025 10:00 AM EDT Office Visit [facility] [address] [place] [address] Yary Carreno Dental calculus (Primary Dx) 01/05/2025 Refill [facility] [address] [place] [address] Candi Castañeda MD 12/27/2024 Telephone [facility] [address] [place] [address] Anthony Moreno MD November recall 12/14/2024 Orders Only [facility] [address] [place] [address] Anthony Moreno MD Varicose veins of both lower extremities, unspecified whether complicated (Primary Dx) 12/02/2024 Telephone [facility] [address] [place], [place] [phone] Anthony Moreno MD Referral 11/20/2024 Refill [facility] [address] [place] [address] Anthony Moreno MD from Last 3 Months [...] AM EST Office Visit [facility] [address] [place] [address] Anthony Moreno MD [address] [place] [address] 07/07/2025 10:15 AM EDT Office Visit [facility] [address] [place] [address] Yary Carreno [address] [place] [address] Health Maintenance Due Date Last Done Comments [...] Tobacco Screening 01/06/2026 01/06/2025 Mammogram 04/09/2026 04/09/2024, 12/10/2023, 03/16/2024, Additional history exists Dental X-Ray: Full [...] AM EST Narrative 04/09/2024 11:01 AM EST [facility] [address] [place], [place] [address] Ultrasound Report Signed Patient: Benjamin Steffanie James MR#: [id number] : 1965 Acct:[id number] Age/Sex: 59 / F ADM Date: 04/09/24 Loc: HO.MAMMO Attending Dr: Anthony Blevins MD Ordering Physician: Anthony Blevins MD Date of Service: 04/09/24 Procedure(s): US breast BI limited mamm only Accession Number(s): [id number] cc: Anthony Blevins MD EXAMINATION: MM DIAGNOSTIC [...] 04/09/24 1058 DD/ 1045 TD/TT: 04/09/24 1057 Kiln Drawer: Procedure Note Donotuseinterpreter, Image - 04/09/2024 Lenny [facility] [address] [place], [place] [address] Ultrasound Report Signed Patient: Steffanie EsquivelMR#: [id number] : 1965Acct:[id number] Age/Sex: 59 / FADM Date: 04/09/24 Loc: HO.MAMMO Attending Dr: Anthony Blevins MD Ordering Physician: Anthony Blevins MD Date of Service: 04/09/24 Procedure(s): US breast BI limited mamm only Accession Number(s): [id number] cc: Anthony Blevins MD EXAMINATION: MM DIAGNOSTIC [...] 04/09/24 1058 DD/ 1045 TD/TT: 04/09/24 1057 Kiln Drawer: us Anthony Muller MD IM US PROCEDURES Fin al Result * Pap Smear (03/17/2024 9:55 AM EST) 03/17/2024 9:55 AM EST 03/18/2024 8:20 AM EST [facility] - 03/24/2024 10:20 AM EST ----- ------- Name: Steffanie Esquivel Age/Sex: 59/F : 1965 Unit#: [id number] Attend Dr: Gary Lvoett MD Re03/17/24 Status: DEP REF Location: HO.LNP Disch: ----- ------- SPEC : [id number] RECD: 03/18/24 STATUS: THEA PASCUAL NUM: [id number] RAIMUNDO: 03/17/[address] [facility] [address]: Gary Lovett MD ENTERED: 03/18/24 SP [...] Received ThinPrep-Cervical Copies To: Anthony Blevins MD [facility] [address] [place] [address] Gary Lovett MD [facility] Women's Services [address] [place] [address] ----- ------- Signed (signature on file) RYAN Candelario (ASCP) 03/24/24 1020 ----- ------- END OF REPORT Generic External Data Provider LAB CYTOLOGY JHONNY MARTINES Final Result [facility] [address] [place] [address] [phone] * Colonoscopy (03/09/2024 9:14 AM EST) Colonoscopy Normal Normal 03/09/2024 9:14 AM EST Historical Provider HEALTH MAINTENANCE Final Result * Hepatitis C Antibody with Reflex to HCV, RNA, Quantitative, Real-Time PCR (01/27/2023 1:47 PM EDT) Hepatitis C Antibody Nonreactive Nonreactive [facility] Comment:Antibodies to HCV no t detected; does not exclude early acuteHCV infection. Blood Venous blood specimen / Unknown 01/27/2023 1:47 PM EDT 01/27/2023 1:47 PM EDT us Anthony Muller MD LAB BLOOD ORDERABLES Final Result [facility] [address] [place] [address] [phone] * HPV E6/E7 RFLX MIKAL 16 18/45 (04/03/2021 3:12 PM EST) HPV mRNA E6/E7 rflx Not Detected Not Detected [facility] Comment: Methodology: Shoe Caser-Mediated Amplification This assay detects E6/E7 viral messenger RNA (mRNA) from 14 high-risk HPV types (16,18,31,33,35,39,45,51,52,56,58,59,66,68). The analytical performance characteristics of this assay have been determined by [employer]. The modifications have not been cleared or approved by the FDA. This assay has been validated pursuant to the CLIA regulations and is used for clinical purposes. For additional information, please refer to http://education.[employer].exoro system/faq/DUK457k7 (This link if provided for information/ educational purposes only.) THIS TEST WAS PERFORMED AT: [employer] [address] [place] [address] [address]LO[address],[place] [address] FABRICIO SINHA MD 04/03/2021 3:12 PM EST us Gary Lovett MD HISTORICAL/NON ORDERABLE LABS Fi nal Result [facility] [address] from Last 3 Months or Most Recently Relevant to Health Maintenance Insurance DENTAL-[facility] MEDICAID STAND ADULT [facility] STANDARD DENTAL-[facility] MEDICAID STAND ADULT Care Teams Fare Enforcement Officer Relationship Specialty Start Date End Date Anthony Moreno MD [address] [place] [phone] PCP - General Internal Medicine 03/07/14
--- OUTSIDE RECORDS SUMMARY | 2025-02-11 15:21 | XMS_ITS | Encounter Summary ---
Author Organization [employer] Address [address] [place] [address] [address] [place] [address] Care Team Providers Care Stopboard Assembler Name Role Phone Anthony Moreno MD Primary Care Provide r Reason for Referral * Consultation (Routine) - Closed Specialty Diagnoses / Procedures Referred By Contsky t Referred To Contact Urology Diagnoses Urge incontinence of urine Anthony Moreno MD [address] [place] [address] Phone: tel: fax: [facility] [address] [place] [address] [place] [address] Phone: tel: fax: Referral ID Status Reason Start Date Expiration Date V isits Requested Visits Authorized [id number] Closed Specialty Services Required 02/08/2025 02/08/2026 1 1 Encounter Details Date Type Department Care Team (Late st Contact Info) Description 02/08/2025 Orders Only [facility] [address] [place] [phone] Anthony Moreno MD [address] [place], [place] [phone] Urge incontinence of urine (Primary Dx) Social History Tobacco Use Types [...] EST Office Visit [facility] [address] [place] [address] Anthony Moreno MD [address] [place] [address] 07/07/2025 10:15 AM EDT Office Visit [facility] [address] [place] [address] Yary Carreno [address] [place] [address] Scheduled Referrals Name Type Priority Associated Diagnoses Orde r Schedule Referral to Urology Outpatient Referral Routine Urge incontinence of urine Expected: 02/08/2025 (Approximate), Expires: 02/08/2026 documented as of this encounter Visit Diagnoses Diagnosis Urge incontinence of urine- Primary Urge incontinence documented in this encounter Additional Health Concerns Assessment Noted Time PHQ-9 Depression Total Score: 5 06/18/19 25 2:26 PM EST documented as of this encounter Care Teams Stopboard Assembler Relationship Specialty Start Date End Date Anthony Moreno MD [address] [place] [address] PCP - General Internal Medicine 03/07/14 documented as of this encounter
--- OUTSIDE RECORDS SUMMARY | 2025-02-11 15:21 | XMS_ITS | Encounter Summary ---
Author Organization [facility] Address [address] [place] [address] [address], [place] [address] Care Team Providers Care Mobile Product Manager Name Role Phone Anthony Moreno MD Primary Care Provide r Encounter Details Date Type Department Care Team (Late Contact Info) Description 03/29/2022 Abstract [facility] [address] [place] [address] Anthony Moreno MD [address] [place], [place] [phone] Social History Tobacco Use Types Packs/Day Years [...] Description 03/08/2025 11:15 AM EST Office Visit [facility] [address] [place] [address] Anthony Moreno MD [address] [place], [place] [phone] 07/07/2025 10:15 AM EDT Office Visit [facility] ADULT DENTAL [address] [place] [address] Yary Carreno [address] [place] [address] documented as of this encounter Procedures Procedure Name Priority Date/Time Associated Diagnosis Comments BI MAMMOGRAM DIAGNOSTIC BILATERAL Routine 03/11/2022 3:54 PM EST documented in this encounter Results * (ABNORMAL) BI Mammogram Diagnostic Bilateral (03/11/2022 3:54 PM EST) Anatomical Region Laterality Modality Breast Bilateral Mammography Narrative 03/11/2022 3:54 PM EST Birads 3 - recommended bilateral diagnostic at time of annual exam in 12 months ([facility] ) Historical Provider MD HARP BI PROCEDURES Final R esult documented in this encounter Visit Diagnoses Not on filedocumented in this encounter Care Teams Mobile Product Manager Relationship Specialty Start Date End Date Anthony Moreno MD [address] [place] [address] PCP - General Internal Medicine 03/07/14 documented as of this encounter
== END 2025-02-11 15:16 | disposition home or self-care (01) ==
LOC: HO.HPS 14:57
PROVIDERS: PCP Internal Medicine; Visit Provider Internal Medicine Pulmonary Disease
DX: J47.9 Bronchiectasis, uncomplicated (principal); R91.8 Other nonspecific abnormal finding of lung field; J45.909 Unspecified asthma, uncomplicated; K21.9 Gastro-esophageal reflux disease without esophagitis
CPT/HCPCS: 99214

== ENCOUNTER → 2025-02-11 14:56 | Outpatient (BNVA) | payer MEDICAID, SELFPAY | PROVIDERS: PCP Internal Medicine; Visit Provider Internal Medicine Pulmonary Disease | DX: K21.9 Gastro-esophageal reflux disease without esophagitis (principal); J45.909 Unspecified asthma, uncomplicated; R91.8 Other nonspecific abnormal finding of lung field; J47.9 Bronchiectasis, uncomplicated | CPT/HCPCS: 99212 ==

== ENCOUNTER 2025-04-12 13:55 | Outpatient (AMB) | payer MEDICAID, SELFPAY ==
--- NOTE | 2025-04-12 14:19 | A.OFFVIS_ITS ---
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 No complaints. Last Pap/HPV was negative in 04/06 Last Mammogram was BI-RADS 1 in 04/06 Last Colonoscopy was done in 03/07, the recommendation was to repeat in 10 years [facility] Medical History Generalized abdominal pain Upper abdominal pain Tinnitus of both ears Chronic leukopenia BRBPR (bright red blood per rectum) Dental calculus Bleeding gums Urge incontinence of urine Acute migraine Hypothyroidism (acquired) Back pain Cough Vaginal discharge Pre-op examination Preop pulmonary/respiratory exam Well woman exam 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 GERD (gastroesophageal reflux disease) Anxiety Depression Fibromyalgia Surgical History Hx of surgical procedure (~02/19/24) Hx of elbow surgery History of colonoscopy (03/09/24) History of bilateral tubal ligation History of cholecystectomy Family History Family/Other Cancer Social History Household Members: None Housing: Apartment Are you a primary child care director to a significant other at home: No Do you presently have visiting nurse or other home services: Yes ([employer] [facility] 1 hour/day) Alcohol intake: current Alcohol intake frequency: does not drink Patient Tobacco Use Status: Never used Tobacco Advance Directives Date on File: 01/19/20 Current occupational status: disabled Sexual orientation: Straight/Heterosexual Gender identity: Female Female Reproductive History Menstrual Age of Menarche: 7 Date of last pap smear: 03/18/24 Date of Mammogram: 04/09/24 Review of Systems Const All systems reviewed & are unremarkable except as noted in HPI and below Card Reports as per HPI Resp Reports as per HPI GI Reports as per HPI and Reports no additional complaints Reports as per HPI Physical Exam Vital Signs: Last Vital Signs BP 116/74 04/12/25 14:25 BMI result Body Mass Index 26.4 Const General: cooperative, healthy appearing and comfortable Chest Chest palpation & inspection: normal inspection of the chest and normal palpation of entire chest wall Breast/axilla inspection: normal inspection of the breasts and normal inspection of the axillae Breast/axilla palpation: normal palpation of the breasts, normal palpation of the axillae and no axillary lymphadenopathy Resp Effort & Inspection: normal respiratory effort Auscultation: clear to auscultation bilaterally Percussion: percussion normal Cardio Palpation: normal PMI Rate: regular rate Rhythm: regular rhythm Heart sounds: no murmurs and no rubs Peripheral pulses: Peripheral pulses 2+ throughout GI Inspection: Yes normal to inspection Palpation (GI): Soft to palpation, nontender, no guarding, not rigid and No hepatosplenomegaly present Percussion: Yes normal to percussion Auscultation: normal bowel sounds Rectal Exam - Female: deferred General: Yes bladder normal to palpation External Female Exam: No lesion Speculum Exam - Vagina: normal appearance of the vagina, normal palpation, normal vaginal discharge and not erythematous Speculum Exam - Cervix: normal appearance of the cervix and normal palpation Bimanual exam- vagina & uterus: normal bimanual exam, normal palpation, uterine size normal, bladder normal to palpation, consistency normal and normal palpation Bimanual Exam- Adnexa, other: normal adnexae, no masses and no tenderness Assessment & Plan Assessment & Plan (1) Well woman exam: Code(s): Z01.419 - Encounter for gynecological examination (general) (routine) without abnormal findings Category: Medical Plan: Co testing not indicated this year. Counseled the patient about the recommended dietary allowance of 1200 mg of Calcium & 600 IU of vitamin D. Mammogram scheduled in 06/09. The patient was instructed to perform monthly self-breast exams and schedule annual exam in a year. All questions answered and the patient verbalized understanding. Coding Level of Care Code Est Pt Prev Care 40-64y(15514) Diagnoses Well woman exam Z01.419
[2025-04-12 14:25] VITALS: BP 116/74; BMI 26.4
--- OUTSIDE RECORDS SUMMARY | 2025-04-12 17:45 | XMS_ITS | Data Portability ---
Author Organization [place] - [facility], Allergy Address [address] [address] Care Team Providers Care Currency Examiner Name Role Phone SOPHIE KIM Primary Care [...] etiology, but patient declined. She will continue yafy-xld-otoikgy anti-inflammator ies as needed. Recommend considering medical-grade mouth guard through their dentist if symptoms persist despite supportive management. [email or web address] Not available 09/22/2024 16:31:52 11/23/2024 11/23/2024 59yo nepali-speaking female with SNHL, TMJ and history of [...] INTERNAL AUDITORY CANAL, W/WO CONTRAST 2023 024 [facility] ([facility]), [address] [facility], [place], [address], 12:39:15 Medication Orders None recorded. Patient TargetsNo [...] contr ast No observ ation record ed. [email or web address] [facility] [address] [place], [address], 09/24/2023 15:40:17 12/03/19 24 09/04/2023 imagi ng/di agnos tic resul t No observ ation record ed. [email or web address] Not Available 20:41:55 11/24/19 25 audio gram No observ ation record ed. BARCODE Not Available 2024 14:26:28 Result Notes None recorded. 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 , including 'globus hystericu s'; Note: Date Diagnosed : 8 3:21 PM (F45.8) Not Available [facility] 4 03:26:41 Gastroeso phageal reflux disease without esophagit is 668008411 Active 2017 Gastro-es ophageal reflux disease without esophagit is; Note: Date Diagnosed : 8 3:24 PM (K21.9) Not Available [facility] 4 03:26:41 Dysphagia 54680268 Active 2017 Other dysphagia ; Note: Date Diagnosed : 8 3:21 PM (R13.19) Not Available [facility] 4 03:26:41 Sensorine ural hearing loss of bilateral ears 326080658 Active 2023 MAYO TADEO, AUD [address] [facility],[place] [address], [place], [address] , [place] - [facility] 4 11:10:51 Vertigo 934157547 Active 2023 Nadia gomez, LUIS - [facility] 4 11:46:48 Vestibula r migraine 669546165 Active 2023 Nadiaeitan gomez, LUIS - [facility] 4 15:38:23 Bilateral earache 777892683 Active 2023 Nadiahubert Blood null, [place] - [facility] 4 11:22:43 Temporoma ndibular joint disorder 38832557 Active 2023 Nadia gomez, LUIS - [facility] 4 11:23:02 Sensorine ural hearing loss of bilateral ears 017743603 Active 2024 MAYO TADEO, AUD [address] [facility],[address], [place], [address] , [facility] 5 11:02:32 Bilateral tinnitus 96408839635 02 Active 2024 MARII MARIE PA-C 100 [facility], [place], [address] , [facility] 5 11:40:47 Problem Notes None recorded. Procedures Surgical History Date Name Laterality Status Provider Name and Address Organization Details Recorded Time 5 Air & Speech Audio with Tymps - 90742, 42834 & 12019 completed MAYO TADEO, AUD [address] [facility], [place], [address], [facility] 11/23/2024 11:02:27 4 Comp Audio with Tymps & Reflexes - 10838 & 23538 completed MAYO [employer], AUD 100 [facility] [address], [place], [address], [facility] 09/04/2023 11:10:42 Imaging Results None recorded. Procedure [...] mcg tablet 11/23 completed Medicati on ID: [id number] D uration Value: 30 Brand Name: levothyr [...] Updated DateTime 11/23/2024 154.94 cm 27.4 kg/m2 22047.89 g Liat Awan [facility] 11/23/2024 11:14:48 Social History None recorded. Functional Status None recorded. Mental Status None recorded. Family History Nothing Reported. Medical History Condition Response Anemia Y Migraines Y Fibromyalgia Y Thyroid Problems Y Anxiety Y Depression Y Gynecological HistoryNo gynecological history recorded. Obstetrics History GPAL:G 0 P 0 0 0 0 Past Encounters Encounter ID Performer Location Encounter Start Date Encounter Closed Date Diagnosis/Indication Diagnosis SNOMED-CT Code Diagnosis ICD10 Code Diagnosis IMO Codes Diagnosis Note [id number] NADIA BLOOD PA-C [facility] [address] [address] 09/04/2023 10:26:40 09/04/2023 12:03:25 Sensorineural hearing loss of bilateral ears 693041969 H90.3 Audiologic al evaluation results:Ri ght ear:Normal [...] 1kHz, AD, and contra 1kHz, . Vertigo 672516197 R42 Associated pre-syncop e and arm weakness Vestibular migraine 2322 45754 H81.8X9 [id number] NADIA BLOOD PA-C [facility] [address] [address] 11/26/2023 10:49:19 11/26/2023 11:27:05 Bilateral earache 416903909 H92.03 Temporoman dibular joint disorder 06470705 M26.609 Vestibular migraine 2322 93481 H81.8X9 [id number] MARII MARIE PA-C [facility] [address] [address] 09/22/2024 13:50:12 09/22/2024 14:28:42 Bilateral earache 923349169 H92.03 Temporoman dibular joint disorder 96620158 M26.609 [id number] MARII MARIE PA-C [facility] [address] [address] 11/23/2024 10:43:43 11/23/2024 13:19:49 Sensorineural hearing loss of bilateral ears 665261641 H90.3 80773053 Audiologic al evaluation results: Mild to moderate sensorineu ral hearing loss with excellent word recognitio n, bilaterall y. Tympanomet ry: Right Ear:Type B Left Ear:Type B Temporoman dibular joint disorder 75631638 M26.609 Bilateral tinnitus 89292 86131 102 H93.13 [id number] Today we discussed the pathophysi ology of tinnitus and the absence of consistent ly successful pharmacolo gic treatments . Recommend masking strategies to decrease awareness of the tinnitus, including using a white noise machine, iZoca tinnitus miguelina, music, or television . We [...] Abraham Member ID Guarantor Name 12/22/2024 1 MEDICAID-PA: [facility] Steffanie James [id number] Steffanie Benjamin Notes Date Note Type Note [...] salt and sugar in the diet. Nadia gmoez [place] - [facility] 09/04/2023 15:39:50 11/26/2023 text/html ROS as noted [...] jaw pops and cracks. COLE PICKENS MD [address] [place] [address], [place], [address], [place] - [facility] 11/26/2023 13:04:47 09/22/2024 text/html ROS as noted in the [facility] 59yo female with TMJ and migrainous [...] No smoking history. COLE PICKENS MD 100 [facility],[address], [address], [facility] - [facility] 09/23/2024 07:48:44 11/23/2024 text/html ROS as noted in the HPI 59yo nepali-speaking female with TMJ and history of migrainous [...] retrocochlear pathology. She has been using flonase group home for chronic nasal congestion. JAYLEEN MIGUEL MD 100 [facility],[place] [address], [place], [address], [facility] 11/23/2024 20:50:14 OBGyn Episode No OBEpisode recorded.
--- OUTSIDE RECORDS SUMMARY | 2025-04-12 17:45 | XMS_ITS | Encounter Summary ---
Author Organization [employer] Address [address] [facility] 7[address] [place] [address] Care Team Providers Care Band Singer Name Role Phone Anthony Moreno MD Primary Care Provide r Reason for Visit * Reason Onset Date Comments Call Back Request 07/08/2024 Encounter Details Date Type Department Care Team ([facility] Contact Info) Description 07/08/2024 Telephone [facility] [address] [place], [place] [phone] Anthony Moreno MD [address] [place] [address] Call Back Request Social History Tobacco Use [...] to get done. Please return call to [phone] documented in this encounter Plan of Treatment Upcoming Encounters Date Type Department Care Team (Late st Contact Info) Description 06/07/2025 10:15 AM EST Office Visit [facility] [address] [place] [address] Anthony Moreno MD [address] [place] [address] 07/07/2025 10:15 AM EDT Office Visit [facility] ADULT DENTAL [address] [place] [address] Yary Carreno [address] [place] [address] documented as of this encounter Visit Diagnoses Not on filedocumented in this encounter Additional Health Concerns Assessment Noted Time PHQ-9 Depression Total Score: 5 06/18/19 25 2:26 PM EST documented as of this encounter Care Teams Band Singer Relationship Specialty Start Date End Date Anthony Moreno MD [address] [place] [address] PCP - General Internal Medicine 03/07/14 documented as of this encounter
--- OUTSIDE RECORDS SUMMARY | 2025-04-12 17:45 | XMS_ITS | Clinical Summary ---
Author Organization [facility] Address [address] [place] [address] Phone Care Team Providers Care Painter Structural Steel Name Role Phone Anthony Blevins MD Primary [...] on file Sexual Orientation Not on file Last Filed Vital Signs Vital Sign Reading [...] Screening 1965 Colorectal Cancer Screening: Colonoscopy 1965 Drug Screen 1965 Non-Opioid Controlled Substance Agreement 1965 Hepatitis A Vaccines (1 of 2 [...] topic Insurance MEDICAID - [place] Care Teams Painter Structural Steel Relationship Specialty Start Date End Date Anthony Blevins MD [address] [place] [phone] PCP - General 01/12/24
--- OUTSIDE RECORDS SUMMARY | 2025-04-12 17:45 | XMS_ITS | Encounter Summary ---
Author Organization [facility] Address [address] [facility] 7[address] [place] [address] Care Team Providers Care Seating Captain Name Role Phone Anthony Moreno MD Primary Care Provide r Reason for Visit * Reason Onset Date Comments Referral 02/03/2025 Encounter Details Date Type Department Care Team ([facility] Contact Info) Description 02/03/2025 Telephone [facility] [address] [place], [place] [phone] Anthony Moreno MD [address] [place], [place] [phone] Referral Social History Tobacco Use Types Packs/Day [...] - 02/03/2025 2:28 PM EDT RN called [facility] who confirmed that the pt last referral in 2023. A new referral will need to be placed by PCP. Will route to PCP for review. * Telephone Encounter - Phong Gardner - 02/03/2025 12:00 PM EDT Tc from pt stating her referral for [facility]rology has and she is requesting a new one. If any questions contact pt at [phone]. documented in this encounter Plan of Treatment Upcoming Encounters Date Type Department Care Team (Late st Contact Info) Description 06/07/2025 10:15 AM EST Office Visit [facility] [address] [place] [address] Anthony Moreno MD [address] [place] [address] 07/07/2025 10:15 AM EDT Office Visit [facility] ADULT DENTAL [address] [place] [address] EvYray [address] [place] [address] documented as of this encounter Visit Diagnoses Not on filedocumented in this encounter Additional Health Concerns Assessment Noted Time PHQ-9 Depression Total Score: 5 06/18/19 25 2:26 PM EST documented as of this encounter Care Teams Seating Captain Relationship Specialty Start Date End Date Anthony Moreno MD [address] [place] [address] PCP - General Internal Medicine 03/07/14 documented as of this encounter
--- OUTSIDE RECORDS SUMMARY | 2025-04-12 17:45 | XMS_ITS | Encounter Summary ---
Author Organization [employer] Address [address] [facility] 7t [place] [address] Care Team Providers Care Cat Sitter Name Role Phone Anthony Moreno MD Primary Care Provide r Reason for Visit * Reason Comments Med Refill Encounter Details Date Type Department Care Team ([facility] st Contact Info) Description 05/14/2023 Refill [facility] [address] [place], [place] [phone] Anthony Moreno MD [address] [place], [place] [phone] Social History Tobacco Use Types Packs/Day Years [...] Description 06/07/2025 10:15 AM EST Office Visit [facility] [address] [place] [address] Anthony Moreno MD [address] [place] [address] 07/07/2025 10:15 AM EDT Office Visit [facility] ADULT DENTAL [address] [place] [address] Ev Yary [address] [place] [address] documented as of this encounter Visit Diagnoses Not on filedocumented in this encounter Care Teams Cat Sitter Relationship Specialty Start Date End Date Anthony Moreno MD [address] [place] [address] PCP - General Internal Medicine 03/07/14 documented as of this encounter
--- OUTSIDE RECORDS SUMMARY | 2025-04-12 17:45 | XMS_ITS | Clinical Summary ---
Author Organization [employer] Address [address] [facility] 7t [place] [address] Care Team Providers Care Maintenance Pipefitter Name Role Phone Anthony Moreno MD Primary Care Provide r Allergies No known active allergies Medications SUMAtriptan (Imitrex) 50 MG tablet TAKE 1 TABLET BY MOUTH AT LEAST 2 HOURS BETWEEN DOSES NEEDED ONCE A DAY 2 Active Simethicone Ultra Strength 180 MG [...] BY MOUTH EVERY DAY NEEDED 2 Active ProAir HFA 108 (90 Base) [...] 6 HOURS NEEDED FOR DIARRHEA 3 Active pregabalin (Lyrica) 100 MG capsuleIndications :Peripheral polyneuropathy TAKE 1 CAPSULE BY MOUTH TWICE DAILY 60 capsule 1 5 Active Blood Pressure kitIndications:Keena vated blood pressure reading without diagnosis of hypertension 1 each 2 times daily. 1 kit 5 08/06/19 26 Active meclizine (Antivert) 25 MG tabletIndications: Vertigo TAKE 1 TABLET(25 MG) BY MOUTH EACH DAY NEEDED FOR DIZZINESS 30 tablet 1 5 Active fluticasone (Flonase) 50 MCG/ACT nasal spray SHAKE LIQUID AND USE 1 SPRAY IN EACH NOSTRIL EVERY DAY 48 g 5 Active salicylic acid ([facility] Psoriasis Shampoo/Cond) 3 % shampooIndications :Dermatitis of face Apply 1 Application. topically Once per day. 120 mL 1 5 Active levothyroxine (Synthroid, Levoxyl) 88 MCG tabletIndications: Acquired hypothyroidism Take 1 tablet (88 mcg) by mouth Once per day. 90 tablet 1 5 Active loratadine (Claritin) 10 MG tabletIndications: Seasonal allergies Take 1 tablet (10 mg) by mouth in the morning. 90 tablet 1 5 Active Multiple Vitamin (multivitamin) tabletIndications: Peripheral polyneuropathy Take 1 tablet by mouth Once per day. 30 tablet 6 5 Active naproxen (Naprosyn) 500 MG tablet Take 1 tablet (500 mg) by mouth with breakfast and with evening meal. 60 tablet 5 Active Active Problems Problem Noted Date Diagnosed Date Dermatitis of face 03/08/2025 Assessment & Plan (03/08/2025 11:25 AM EST): Differential diagnosis Seborrheic dermatitis, VS Rosacea [facility] Arthralgia of bilateral temporomandibular joint 07/05/2024 Postmenopausal bleeding 06/17/2024 Assessment & Plan (03/08/2025 11:15 AM EST): Under the care of Dr gary Lovett LOAN AUDITOR , last seen 05/2024 She is now [...] She will continue to follow with Dr. Lovett. Has an appointment on: 04/12 @ 2:45 pm, Assessment & Plan (06/17/2024 2:48 PM EST): Under the care of Dr gary Lovett LOAN AUDITOR , last seen 05/2024 She is now [...] synovitis on exam. She refused injection from [employer]. She had surgery on the right elbow for nerve pain and wants to he the left hand done. 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 Hand pain to the right is resolved, X-rays from 2022 showed osteoarthritis. No synovitis on exam. She refused injection from Real Time Tr[employer]. She had surgery on the right elbow for nerve pain and wants to he the left hand done. Real Time Trader recommended to continue with Tylenol and over [...] Xerostomia 01/05/2024 Hypersomnolence 06/17/2023 Assessment & Plan (03/08/2025 11:14 AM EST): Referred to sleep medicine, has appointment for Sleep study 03/15 @ 2 pm, Assessment & Plan (10/19/2024 2:20 PM EDT): [...] of both ears 01/16/2023 Assessment & Plan (03/08/2025 11:11 AM EST): Pt with previous c/o tinnitus with associated vertigo, using Meclizine PRN prescribed by Neurology Evaluated by ENT ( [facility]) last seen 11/23/2024 Previous work up included a brain MRI and IACs at [facility] ) that was read as normal for age. They recommended to reduce the meclizine and vestibular therapy but patient declined. They told her to continue to work with her neurologist. Per their reporrt Otologic exam was unremarkable. Physical exam revealed [...] etiology, but patient declined. She will continue [id number] anti-inflammatories as needed. Recommend considering medical-grade mouth guard through their dentist if symptoms persist despite supportive management. Assessment & Plan (10/19/2024 2:12 PM EDT): Pt with previous c/o tinnitus with associated vertigo, using Meclizine PRN prescribed by Neurology Evaluated by ENT ( [facility]) last seen 11/26/2023 They obtained a brain MRI and IACs at [facility] ) that was read as [...] etiology, but patient declined. She will continue mhaz-tsp-urrapzm anti-inflammatories as needed. Recommend considering medical-grade mouth guard through their dentist if symptoms persist despite supportive management. Assessment & Plan (11/27/2023 2:42 PM EDT): Pt with previous c/o tinnitus with associated vertigo, using Meclizine PRN prescribed by Neurology Evaluated by ENT ( [facility]) last seen 11/26/2023 They obtained a brain MRI and IACs at [facility] ) that was read as [...] Preventative health care 08/06/2022 Assessment & Plan (03/08/2025 11:17 AM EST): Mammogram: 04/09/2024 Normal has an appointment for repeat Mammo 03/22 @ 3 pm, Pap Smear: HPV neg, NILM, 04/03/[address] Lovett [facility] Colonoscopy: 08/17/2013 Dr. Smith. Repeat 03/09/2024 Dr Kaba at [facility] Normal aside from hemorrhoids, 10 yr follow up recommended Vaccines: Td: 06/07/2011 Declines booster Dexa scan: 05/25/2010. Assessment & Plan (10/19/2024 2:22 PM EDT): Mammogram: 04/09/2024 Normal Pap Smear: HPV neg, NILM, 04/03/[address] Lovett [facility] Colonoscopy: 08/17/2013 Dr. Smith. Repeat 03/09/2024 Dr Kaba at [facility] Normal aside from hemorrhoids, 10 yr follow up recommended Vaccines: Td: 06/07/2011 Declines booster Dexa scan: 05/25/2010. Assessment & Plan (06/17/2024 2:44 PM EST): Mammogram: 03/14/2023 Normal Pap Smear: HPV neg, NILM, 04/03/[address] Lovett [facility] Colonoscopy: 08/17/2013 Dr. Smith. Repeat 03/09/2024 Dr Kaba at [facility] Normal aside from hemorrhoids, 10 yr follow up recommended Vaccines: Td: 06/07/2011 Declines booster Dexa scan: 05/25/2010. Assessment & Plan (11/27/2023 2:55 PM EDT): Mammogram: 03/14/2023 Normal Pap Smear: HPV neg, NILM, 04/03/[address] Lovett [facility] Colonoscopy: 08/17/2013 Dr. Smith. Scheduled for Feb 2024 for a repeat. Vaccines: Td: 06/07/2011 Declines booster Dexa scan: 05/25/2010. Assessment & Plan (01/16/2023 3:01 PM EDT): Mammogram: 03/11/2022 BIRADS 3, due Feb 2023 Pap Smear: HPV neg, NILM, 04/03/[address] Lovett [facility] Colonoscopy: 08/17/2013 Dr. Smith Vaccines: Td: 06/07/2011 Dexa scan: 05/25/2010. Assessment & Plan (08/06/2022 2:21 PM EDT): Mammogram: 03/11/2022 BIRADS 3, due Feb 2023 Pap Smear: HPV neg, NILM, 04/03/[address] Lovett [facility] Colonoscopy: 08/17/2013 Dr. Smith Vaccines: [...] stated that: CT of the C-spine confirms [id number] degenerative disc disease at the C5-6 level [...] Bronchiectasis without complication (CMS/HCC) Assessment & Plan (03/08/2025 11:15 AM EST): Seen last by Pulmonary Dr Hopson 06/29/2024 CT in [...] Trace simple free fluid in the pelvis. Has a follow up with pulmonology : 07/26/25 @ 2:30 pm Assessment & Plan (10/19/2024 2:06 PM EDT): [...] to the fact thay they had no software test automation engineer. Pt is requesting to have the toenail [...] a Hx of severe anxiety. follows at [facility]. On Klonopin 0.5 mg po qd prn for anxiety. Chronic low back pain 01/14/2012 Assessment & Plan (03/08/2025 11:13 AM EST): follows at [facility], receives epidural injections intermittently. Last seen 12/30/2024 Assessment & Plan (08/06/2022 2:24 PM EDT): follows at [facility], receives epidural injections intermittently. Fibromyalgia 01/14/2012 [...] 2.02 Used to follow with Endocrinology at [facility] Endocrinology. She is on Synthroid 88 mcg po daily. Plan: Continue with current regimen Pt tells me the Conveyor Worker already told her there was no need to f/u with them to only follow with us Plan: Repeat TSH Assessment & Plan (11/27/2023 2:44 PM EDT): Pt here for a f/u Most recent TSH 08/19/2023 normal at 2.02 Used to follow with Endocrinology at [facility] Endocrinology. She is on Synthroid 88 mcg po daily. Plan: Continue with current regimen Pt tells me the Conveyor Worker already told her there was no need to f/u with them to only follow with us Assessment & Plan (08/19/2023 1:26 PM EDT): Pt here for a f/u Most recent TSH 06/18/2023 elevated at 9.46 Used to follow with Endocrinology at [facility] Endocrinology. She is on Synthroid 88 mcg po daily. Plan: Will repeat and if still elevated will increase it to 100 mcg po daily Pt tells me the Conveyor Worker already told her there was no need to f/u with them to only follow with us Plan: continue current regimen. Will repeat TSH Assessment & Plan (06/17/2023 2:07 PM EST): Pt here for a f/u Most recent TSH 01/27/2023 elevated at 6.02 Used to follow with Endocrinology at [facility] Endocrinology. She was on Synthroid 75 mcg po daily. I increased it to 88 mcg po daily Pt tells me the Conveyor Worker already told her there was no need to f/u with them to only follow with us Plan: continue current regimen. Will repeat TSH Assessment & Plan (01/16/2023 3:46 PM EDT): Pt here for a f/u Most recent TSH 03/27/2022 wnl Used to follow with Endocrinology at [facility] Endocrinology. She is currently on Synthroid 75 mcg po daily. Pt tells me the Conveyor Worker already told her there was no need to f/u with them to only follow with us Plan: continue current regimen. Will repeat TSH Assessment & Plan (08/06/2022 2:27 PM EDT): Pt here for a f/u Most recent TSH 03/27/2022 wnl Used to follow with Endocrinology at [facility] Endocrinology. She is currently on Synthroid 75 mcg po daily. Pt tells me the Conveyor Worker already told her there was no need to f/u with them to only follow with us Plan: continue current regimen Irritable bowel syndrome 01/14/2012 Assessment & Plan (03/08/2025 11:16 AM EST): Pt here for a f/u Pt on Viberzi (prescribed by GI ) for persistent watery diarrhea ( pt is s/p CCY ) . Abd U/S showed fatty liver Pt under the care of GI. Last seen 08/22/2023 Has a follow up appointment: Gastro 08/02/25 @ 1:30 pm. Assessment & Plan (11/27/2023 2:35 PM EDT): [...] of GI. Migraine 01/14/2012 Assessment & Plan (03/08/2025 11:17 AM EST): currently not complaining Previous extensive diagnostic [...] seen by Dr Jorje Bates last 12/28/2014 Has a follow up:Neurology 03/29 @ 1 pm Assessment & Plan (06/17/2023 1:29 PM EST): [...] Encounters Date Type Department Care Team Description 03/29/2025 Telephone [facility] [address] [place] [address] Anthony Moreno MD Appointment Request 03/08/2025 11:15 AM EST Office Visit [facility] [address] [facility] [place] [address] Anthony Moreno MD Tinnitus of both ears (Primary Dx); Chronic midline low back pain without sciatica; Hypersomnolence; Bronchiectasis without complication (CMS/HCC) (HCC); Postmenopausal bleeding; Irritable bowel syndrome with diarrhea; Chronic migraine without aura without status migrainosus, not intractable; Preventative health care; Dermatitis of face 03/08/2025 Refill [facility] [address] [facility] [place] [address] Anthony Moreno MD Acquired hypothyroidism; Seasonal allergies; Peripheral polyneuropathy 03/08/2025 Refill [facility] & PEDS [address] [place] [address] Anthony Moreno MD Acquired hypothyroidism; Seasonal allergies 03/08/2025 Travel 03/03/2025 Telephone [facility] MEDICINE [address] [place] [address] Anthony Moreno MD CHART PREP 02/28/2025 Patient Outreach [facility] MEDICINE [address] [place] [address] Anthony Moreno MD Pre-visit Planning ([facility] screening was completed on 06/08/2024) 02/10/2025 Refill [facility] MEDICINE [address] [place] [address] Anthony Moreno MD 02/08/2025 Orders Only [facility] MEDICINE [address] [place] [address] Anthony Moreno MD Urge incontinence of urine (Primary Dx) 02/03/2025 Telephone [facility] MEDICINE [address] [place] [address] Anthony Moreno MD Referral from Last 3 Months Immunizations Immunization Administration [...] Sign Reading Time Taken Comments Blood Pressure 124/68 03/08/2025 11:01 AM EST Pulse 68 03/08/2025 11:01 AM EST Temperature 36.6 C (97.9 F) 03/08/2025 11:01 AM EST Respiratory Rate 17 03/08/2025 11:01 AM EST Oxygen Saturation 99% 08/17/2024 11:28 AM EDT Inhaled Oxygen Concentration - - Weight 67.8 kg (149 lb 6.4 oz) 03/08/2025 11:01 AM EST Height 154.9 cm (5' 1 ) 03/08/2025 11:01 AM EST Body Mass Index 28.23 03/08/2025 11:01 AM EST Plan of Treatment Upcoming Encounters Date Type Department Care Team (Late st Contact Info) Description 06/07/2025 10:15 AM EST Office Visit [facility] MEDICINE [address] [place] [address] Anthony Moreno MD [address] [place] [address] 07/07/2025 10:15 AM EDT Office Visit [facility] ADULT DENTAL [address] [place] [address] Yary Carreno [address] [place] [address] Health Maintenance Due Date Last Done Comments CT Colonography 1965 FIT DNA/Cologuard 1965 FIT 1965 FOBT 1965 HIV Screening 1965 Sigmoidoscopy 1965 Disability Screening 1965 Hepatitis A Vaccines (1 of 2 - Risk 2-dose series) 1982 Pneumococcal Vaccine: 50+ Years (1 of 2 - PCV) 1982 RSV Patients and Patients Aged 60 years or older (1 - Risk 50-74 years 1-dose series) 2013 Zoster Vaccines (1 of 2) 2013 Hepatitis B Vaccines (1 of 3 - Risk 3-dose series) 2023 COVID-19 Vaccine ( - season) 2024 10/28/2020, 10/06/2020 Influenza Vaccine (#1) 2024 Dental Oral Exam 01/06/2025 07/05/2024, 08/2022, 05/03/2022 SDOH Screening 06/08/2025 06/08/2024 Depression Screening 06/17/2025 06/17/2024, 06/18/19 Dental X-Ray: Bitewings 07/06/2025 07/06/19, 01/31/2023, 05/03/2022 Dental Prophylaxis 07/07/2025 01/06/2025, 0 07/05/2024, 01/05/2024, Additional history exists DTaP/Tdap/Td Vaccines (1 - Tdap) 08/05/2025 06/07/2011, 07/19/1997 Postponed from 06/08/2011 (Patient Refused) Alcohol/Substance Use Screening 03/08/2026 03/08/2025 Tobacco Screening 03/08/2026 03/08/2025 Mammogram 04/09/2026 04/09/2024, 03/15, 04/09/2024, Additional history exists Dental X-Ray: Full Mouth 07/07/2027 025, 11/20/2020, 11/20/2020 Cervical Cancer Screening 03/17/2029 HPV/Cotest 03/17/2029 04/03/2021, 04/03/2021 Pap Smear 03/17/2029 03/17/2024 Colonoscopy 03/09/2034 03/09/2024, 02/13, 08/17/2013 Colorectal Cancer Screening 03/09/2034 Hepatitis C [...] Procedure Name Priority Date/Time Associated Diagnosis Comments AMB REFERRAL TO VASCULAR SURGERY Routine 03/09/2025 Varicose veins of both lower extremities, unspecified whether complicated PROPHYLAXIS - ADULT Routine 01/06/2025 1 0:00 AM EDT Dental calculus INTRAORAL [...] Recently Relevant to Health Maintenance Results * Referral to Vascular Surgery (03/09/2025) Anthony Muller MD OUTPATIENT REFERRAL O RDERABLES Final Result * BI US Breast Limited Bilateral (04/09/2024 10:45 AM EST) Anatomical Region Laterality Modality Breast Bilateral Ultrasound 04/09/2024 10:4 5 AM EST Narrative 04/09/2024 11:01 AM EST [address] [place] [address] Ultrasound Report Signed Patient: Steffanie Esquivel MR#: [id number] : 1965 Acct:[id number] Age/Sex: 59 / F ADM Date: 04/09/24 Loc: HO.MAMMO Attending Dr: Anthony Blevins MD Ordering Physician: Anthony Blevins MD Date of Service: 04/09/24 Procedure(s): US breast BI limited mamm only Accession Number(s): [id number] cc: Anthony Blevins MD EXAMINATION: MM DIAGNOSTIC [...] 04/09/24 1058 DD/ 1045 TD/TT: 04/09/24 1057 Abrasive Mixer Helper: Procedure Note Donotuseinterpreter, Image - [facility]/09/[facility] [address] [place] [address] Ultrasound Report Signed Patient: Steffanie EsquivelMR#: [id number] : 1965Acct:[id number] Age/Sex: 59 / FADM Date: 04/09/24 Loc: HO.MAMMO Attending Dr: Anthony Blevins MD Ordering Physician: Anthony Blevins MD Date of Service: 04/09/24 Procedure(s): US breast BI limited mamm only Accession Number(s): [id number] cc: Anthony Blevins MD EXAMINATION: MM DIAGNOSTIC [...] 04/09/24 1058 DD/ 1045 TD/TT: 04/09/24 1057 Abrasive Mixer Helper: us Anthony Muller MD IM US PROCEDURES Fin al Result * Pap Smear (03/17/2024 9:55 AM EST) 03/17/2024 9:55 AM EST 03/18/2024 8:20 AM EST [facility] - 03/24/2024 10:20 AM EST ----- ------- Name: Steffanie Esquivel Age/Sex: 59/F [facility] 1965 [id number] [id number] Attend Dr: Gary Lovett MD Re03/17/24 Status: DEP [facility] Disch: ----- ------- SPEC : [id number] RECD: 03/18/24 STATUS: THEA PASCUAL NUM: [id number] RAIMUNDO: 03/17/[address] [facility] [address]: Gary Lovett MD ENTERED: 03/18/24 [...] Received ThinPrep-Cervical Copies To: Anthony Blevins MD [address] [address] Gary Lovett MD [facility] Services [address] [place] [id number] ----- ------- Signed (signature on file) RYAN Candelario (ASCP) 03/24/24 1020 ----- ------- END OF REPORT Generic External Data Provider LAB CYTOLOGY JHONNY RABRIA Final Result Performing Organization Address [facility] Co de Phone Number [facility] [address] [place] [address] [phone] * Hm Colonoscopy (03/09/2024 9:14 AM EST) Colonoscopy Normal Normal 03/09/2024 9:14 AM EST Historical Provider HEALTH MAINTENANCE Final Result * Hepatitis C Antibody with Reflex to HCV, RNA, Quantitative, Real-Time PCR (01/27/2023 1:47 PM EDT) Hepatitis C Antibody Nonreactive Nonreactive [facility] Comment:Antibodies to HCV no t detected; does not exclude early acuteHCV infection. Blood Venous blood specimen / Unknown 01/27/2023 1:47 PM EDT 01/27/2023 1:47 PM EDT Anthony Muller MD LAB BLOOD ORDERABLES Final Result Performing Organization Address [facility] Co de Phone Number [facility] [address] [place] [address] [phone] * HPV E6/E7 RFLX MIKAL 16 18/45 (04/03/2021 3:12 PM EST) HPV mRNA E6/E7 rflx Not Detected Not Detected [facility] Comment: Methodology: Dredge Operator-Mediated Amplification This assay detects E6/E7 viral messenger RNA (mRNA) from 14 high-risk HPV types (16,18,31,33,35,39,45,51,52,56,58,59,66,68). The analytical performance characteristics of this assay have been determined by [employer]. The modifications have not been cleared or approved by the FDA. This assay has been validated pursuant to the CLIA regulations and is used for clinical purposes. For additional information, please refer to http://education.AboutMyStar/faq/FHQ523q9 (This link if provided for information/ educational purposes only.) THIS TEST WAS PERFORMED AT: [employer] [address] [place] [address] [address],[place] [address] FABRICIO SINHA MD 04/03/2021 3:12 PM EST Gary Lovett MD HISTORICAL/NON ORDERABLE LABS Fi nal Result [facility] [address] from Last 3 Months or Most Recently Relevant to Health Maintenance [place] [address] [place] [address] [address] [place] [address] [address] [place] [address] [address] [place] [address] Care Teams Maintenance Pipefitter Relationship Specialty Start Date End Date Anthony Moreno MD [address] [place] [address] [place] [address] PCP - General Internal Medicine 03/07/14
--- OUTSIDE RECORDS SUMMARY | 2025-04-12 17:45 | XMS_ITS | Encounter Summary ---
Author Organization [employer] Address [address] [facility] 7t [place] [address] Care Team Providers Care Broach Setter Name Role Phone Anthony Moreno MD Primary Care Provide r Reason for Visit * Reason Onset Date Comments Clarification 03/18/2023 Encounter Details Date Type Department Care Team ([facility] Contact Info) Description 03/18/2023 Telephone [facility] [address] [place], [place] [phone] Anthony Moreno MD [address] [place], [place] [phone] Clarification Social History Tobacco Use Types Packs/Day [...] t he electric, gas, oil or water [employer] threatened to shut off services in your [...] encounter Miscellaneous Notes * Telephone Encounter - Clevelandanai Fracisco Catalan - 03/18/2023 4:50 PM EST Tc from Donna From [facility] pharmacy calling in for a Clarification on script for: chlorhexidine (Peridex) 0.12 % solution. Donna states medication instruction does not specify how many times a day pt should take solution. Please contact Donna @ [phone] documented in this encounter Plan of Treatment Upcoming Encounters Date Type Department Care Team (Late st Contact Info) Description 06/07/2025 10:15 AM EST Office Visit [facility] [address] [place] [address] Anthony Moreno MD [address] [place] [address] 07/07/2025 10:15 AM EDT Office Visit [facility] ADULT DENTAL [address] [place] [address] Ev, Yary [address] [place] [address] documented as of this encounter Visit Diagnoses Not on filedocumented in this encounter Care Teams Broach Setter Relationship Specialty Start Date End Date Anthony Moreno MD [address] [place] [address] PCP - General Internal Medicine 03/07/14 documented as of this encounter
--- OUTSIDE RECORDS SUMMARY | 2025-04-12 17:46 | XMS_ITS | Encounter Summary ---
Author Organization [employer] [facility] Address [address] [facility] 7t [place] [address] Care Team Providers Care Weight Training Instructor Name Role Phone Anthony Moreno MD Primary Care Provide r Encounter Details Date Type Department Care Team (Late st Contact Info) Description 03/19/2022 Abstract [facility] MEDICINE [address] [place] [address] ProviderRick MD Social History Tobacco Use Types [...] Description 06/07/2025 10:15 AM EST Office Visit [facility] MEDICINE [address] [place] [address] Anthony Moreno MD [address] [place] [address] 07/07/2025 10:15 AM EDT Office Visit [facility] ADULT DENTAL [address] [place] [address] Yary Carreno [address] [place] [address] documented as of this encounter Visit Diagnoses Not on filedocumented in this encounter Care Teams Weight Training Instructor Relationship Specialty Start Date End Date Anthony Moreno MD [address] [facility] [place] [address] PCP - General Internal Medicine 03/07/14 documented as of this encounter
--- OUTSIDE RECORDS SUMMARY | 2025-04-12 17:46 | XMS_ITS | Encounter Summary ---
Author Organization [employer] [facility] Address [address] [facility] [address] [place] [address] Care Team Providers Care Extension Course Coordinator Name Role Phone Anthony Moreno MD Primary Care Provide r Encounter Details Date Type Department Care Team (Latest Contact Info) Description 11/20/2020 Abstract [facility] CONVERSIONS Dental, Provider, DDS Social History [...] Description 06/07/2025 10:15 AM EST Office Visit [facility] MEDICINE [address] [place] [address] Anthony Moreno MD [address] [place] [address] 07/07/2025 10:15 AM EDT Office Visit [facility] ADULT DENTAL [address] [place] [address] Yary Carreno [address] [place] [address] documented as of this encounter Visit Diagnoses Not on filedocumented in this encounter Care Teams Extension Course Coordinator Relationship Specialty Start Date End Date Anthony Moreno MD [address] [place] [id number] PCP - General Internal Medicine 03/07/14 documented as of this encounter
--- OUTSIDE RECORDS SUMMARY | 2025-04-12 17:46 | XMS_ITS | Encounter Summary ---
Author Organization [employer] [facility] Address [address] [place] [address] 7t [place] [address] Care Team Providers Care Wheat Combine Driver Name Role Phone Anthony Moreno MD Primary Care Provide r Encounter Details Date Type Department Care Team (Late Contact Info) Description 03/29/2022 Abstract [facility] MEDICINE [address] [place], [place] [phone] Anthony Moreno MD [address] [place], [place] [phone] Social History Tobacco Use Types Packs/Day Years [...] Description 06/07/2025 10:15 AM EST Office Visit [facility] MEDICINE [address] [place] [address] Anthony Moreno MD [address] [place], [place] [phone] 07/07/2025 10:15 AM EDT Office Visit [facility] ADULT DENTAL [address] [place] [address] Yary Carreno [address] [place] [address] documented as of this encounter Procedures Procedure Name Priority Date/Time Associated Diagnosis Comments BI MAMMOGRAM DIAGNOSTIC BILATERAL Routine 03/11/2022 3:54 PM EST documented in this encounter Results * (ABNORMAL) BI Mammogram Diagnostic Bilateral (03/11/2022 3:54 PM EST) Anatomical Region Laterality Modality Breast Bilateral Mammography Narrative 03/11/2022 3:54 PM EST Birads 3 - recommended bilateral diagnostic at time of annual exam in 12 months ([facility] [place] ) Historical Provider MD HARP BI PROCEDURES Final R esult documented in this encounter Visit Diagnoses Not on filedocumented in this encounter Care Teams Wheat Combine Driver Relationship Specialty Start Date End Date Anthony Moreno MD [address] [place] [id number] PCP - General Internal Medicine 03/07/14 documented as of this encounter
--- OUTSIDE RECORDS SUMMARY | 2025-04-12 17:46 | XMS_ITS | Encounter Summary ---
Author Organization [employer] [facility] Address [address] [facility] [address]t [place] [address] Care Team Providers Care Advertising Representative Name Role Phone Anthony Moreno MD Primary Care Provide r Encounter Details Date Type Department Care Team ([facility] Contact Info) Description 08/22/2022 Abstract [facility] MEDICINE [address] [place] [address] [phone] Anthony Moreno MD [address] [place] [address] [phone] Social History Tobacco Use Types Packs/Day Years [...] Department Care Team (Late Contact Info) Description 06/07/2025 10:15 AM EST Office Visit [facility] MEDICINE [address] [place] [address] [phone] Anthony Moreno MD [address] [place], [place] [phone] 07/07/2025 10:15 AM EDT Office Visit [facility] ADULT DENTAL [address] [place], [place] [phone] Yary Carreno [address] [place] [address] documented as of this encounter Procedures Procedure Name Priority Date/Time Associated Diagnosis Comments COLONOSCOPY Routine 08/17/2013 documented in this encounter Results * Colonoscopy (08/17/2013) Colonoscopy Normal Normal 08/17/2013 Aidee Benedict - 08/17/2013 2:57 PM EDT Recommended 10 year follow up ( [facility] [place] ) Historical Provider HEALTH MAINTENANCE Final Result documented in this encounter Visit Diagnoses Not on filedocumented in this encounter Care Teams Advertising Representative Relationship Specialty Start Date End Date Anthony Moreno MD [address] [place] [address] PCP - General Internal Medicine 03/07/14 documented as of this encounter
--- OUTSIDE RECORDS SUMMARY | 2025-04-12 17:46 | XMS_ITS | Encounter Summary ---
Author Organization [employer] Address [address] [facility] [address] [place] [address] Care Team Providers Care Active Directory Specialist Name Role Phone Anthony Moreno MD Primary Care Provide r Encounter Details Date Type Department Care Team ([facility] Contact Info) Description 05/10/2024 Telephone [facility] MEDICINE [address] [place], [place] [phone] Anthony Moreno MD [address] [place], [place] [phone] Social History Tobacco Use Types Packs/Day Years [...] Description 06/07/2025 10:15 AM EST Office Visit [facility] MEDICINE [address] [place] [address] Anthony Moreno MD [address] [place] [address] 07/07/2025 10:15 AM EDT Office Visit [facility] ADULT DENTAL [address] [place] [address] Ev, Yary [address] [place] [address] documented as of this encounter Visit Diagnoses Not on filedocumented in this encounter Additional Health Concerns Assessment Noted Time PHQ-9 Depression Total Score: 1 08/19/19 24 1:27 PM EDT documented as of this encounter Care Teams Active Directory Specialist Relationship Specialty Start Date End Date Anthony Moreno MD [address] [place] [address] PCP - General Internal Medicine 03/07/14 documented as of this encounter
--- OUTSIDE RECORDS SUMMARY | 2025-04-12 17:46 | XMS_ITS | Encounter Summary ---
Author Organization [employer] [facility] Address [address] [place] [address] Care Team Providers Care Income Tax Return Preparer Name Role Phone Anthony Moreno MD Primary Care Provide r Encounter Details Date Type Department Care Team (Latest Contact Info) Description 06/24/2018 Abstract [facility] CONVERSIONS Dental, Provider, DDS Social History [...] Description 06/07/2025 10:15 AM EST Office Visit [facility] MEDICINE [address] [place] [address] Anthony Moreno MD [address] [place] [address] 07/07/2025 10:15 AM EDT Office Visit [facility] ADULT DENTAL [address] [place] [address] Jeffery Carrenoaris [address] [place] [address] documented as of this encounter Visit Diagnoses Not on filedocumented in this encounter Care Teams Income Tax Return Preparer Relationship Specialty Start Date End Date Anthony Moreno MD [address] [place] [id number] PCP - General Internal Medicine 03/07/14 documented as of this encounter
== END 2025-04-12 14:47 | disposition home or self-care (01) ==
LOC: HO.HWS 13:55
PROVIDERS: PCP Internal Medicine; Visit Provider Obstetrics & Gynecology
DX: Z01.419 Encounter for gynecological examination (general) (routine) without abnormal findings (principal)
CPT/HCPCS: 99396; 99459

== ENCOUNTER → 2025-04-12 13:55 | Outpatient (BNVA) | payer MEDICAID, SELFPAY | PROVIDERS: PCP Internal Medicine; Visit Provider Obstetrics & Gynecology | DX: Z01.419 Encounter for gynecological examination (general) (routine) without abnormal findings (principal); Z98.51 Tubal ligation status; Z71.89 Other specified counseling | CPT/HCPCS: 99396 ==